=== PATIENT | female | born 1960 | race Caucasian/White ===

== ENCOUNTER 2019-05-22 12:58 | Outpatient (CLI) | payer MEDICAID, SELFPAY ==
[2019-05-22 13:36] LABS: Basophils % 0.5 %; Eosinophils # 0.2 10^3/uL (0.0-0.8); Eosinophils % 3.6 %; Lymphocytes # 1.2 10^3/uL (0.8-4.8); Lymphocytes % 18.6 %; Mean Corpuscular HGB Conc 32.3 g/dL (30.0-36.0); Mean Corpuscular Hemoglobin 29.2 pg (28.0-34.0); Mean Corpuscular Volume 90.6 fL (81-99); Mean Platelet Volume 9.6 fL (7.4-10.4); Monocytes # 0.6 10^3/uL (0.2-0.9); Monocytes % 9.4 %; Neutrophils # 4.4 10^3/uL (1.8-7.7); Neutrophils % 67.3 %; Nucleated Red Blood Cells % 0 %; Platelet Count 261 10^3/cmm (130-400); Red Blood Count 3.42 10^6/uL (4.1-5.3); Red Cell Distribution Width 12.4 % (12.1-15.1); White Blood Count 6.6 10^3/uL (4.0-10.0)
[2019-05-22 13:58] LABS: Alanine Aminotransferase 9 U/L (0-33); Albumin Level 3.9 g/dL (3.5-5.2); Alkaline Phosphatase 52 IU/L (35-105); Anion Gap 16.1 (5-19); Aspartate Amino Transferase 14 U/L (0-32); Blood Urea Nitrogen 14 mg/dL (6-20); Calcium 9.2 mg/Dl (8.6-10.0); Carbon Dioxide 23 mmol/L (22-29); Chloride 103 mmol/L (98-107); Ferritin 69 ng/mL (15-150); Globulin 2.2 g/dL (1.3-4.6); Glomerular Filtration Rate 85.9 mL/min (90-130); Glucose 95 mg/dL (74-109); Iron 95 ug/dL (37-145); Potassium 4.1 mmol/L (3.5-5.1); Sodium 138 mmol/L (136-145); Total Bilirubin 0.2 mg/dL (0.15-1.2); Total Iron Binding Capacity 279 mg/dL; Total Protein 6.1 g/dL (6.6-8.7); Unsaturated Iron Binding 184 ug/dL (112-347)
[2019-05-23 13:42] LABS: Vitamin B12 492 pg/mL (232-1245)
== END 2019-05-22 12:59 | disposition home or self-care (01) ==
LOC: ONCMED 13:01
PROVIDERS: Family Provider Family Medicine; Visit Provider Internal Medicine Medical Oncology
DX: D64.9 Anemia, unspecified (principal)
CPT/HCPCS: 36591; 80053; 82607; 82728; 83540; 83550; 85025

== ENCOUNTER 2019-06-27 12:57 | Outpatient (CLI) | payer MEDICAID, SELFPAY ==
[2019-06-27 14:08] LABS: Basophils % 0.3 %; Eosinophils # 0.2 10^3/uL (0.0-0.8); Eosinophils % 1.8 %; Hematocrit 34.2 % (37.0-47.0); Lymphocytes # 1.1 10^3/uL (0.8-4.8); Mean Corpuscular HGB Conc 32.2 g/dL (30.0-36.0); Mean Corpuscular Hemoglobin 29.9 pg (28.0-34.0); Mean Corpuscular Volume 92.9 fL (81-99); Mean Platelet Volume 9.3 fL (7.4-10.4); Monocytes # 0.8 10^3/uL (0.2-0.9); Monocytes % 8.7 %; Neutrophils # 6.6 10^3/uL (1.8-7.7); Neutrophils % 75.5 %; Nucleated Red Blood Cells % 0 %; Platelet Count 257 10^3/cmm (130-400); Red Blood Count 3.68 10^6/uL (4.1-5.3); Red Cell Distribution Width 12.9 % (12.1-15.1); White Blood Count 8.7 10^3/uL (4.0-10.0)
[2019-06-27 14:44] LABS: Alanine Aminotransferase 9 U/L (0-33); Albumin Level 4.1 g/dL (3.5-5.2); Alkaline Phosphatase 64 IU/L (35-105); Anion Gap 15.7 (5-19); Aspartate Amino Transferase 13 U/L (0-32); Blood Urea Nitrogen 17 mg/dL (6-20); Calcium 9.7 mg/dL (8.5-10.5); Carbon Dioxide 22 mmol/L (22-29); Chloride 103 mmol/L (98-107); Ferritin 71 ng/mL (15-150); Globulin 2.4 g/dL (1.3-4.6); Glomerular Filtration Rate 85.9 mL/min (90-130); Glucose 93 mg/dL (65-115); Iron 114 ug/dL (37-145); Percent Saturation 35.2 % (20-50); Potassium 3.7 mmol/L (3.5-5.1); Sodium 137 mmol/L (136-145); Total Bilirubin 0.3 mg/dL (0.15-1.2); Total Iron Binding Capacity 323 mcg/dl; Total Protein 6.5 g/dL (6.6-8.7); Unsaturated Iron Binding 209 ug/dL (112-347)
[2019-06-27 15:53] LABS: Vitamin B12 384 pg/mL (232-1245)
--- NOTE | 2019-06-28 07:43 | ONC FU_ITS ---
Dr. Medina Patient Follow-Up Note Patient: Preeti Odom Unit #: [id number]: 1960 Dicatated By: Lauri Medina M.D.Date of Visit:Jun 27, 2019 Onc Med Follow-up/Prog Note Chief Complaint: Anemia. History of Present Illness: This is a 59 year-old woman with a mild chronic anemia. She had chronic iron deficiency anemia for 13 years prior to presentation, requiring Port-A-Cath placement and frequent IV iron administration. She underwent a total abdominal hysterectomy for fibroid uterus and endometriosis in 1994, followed by bilateral oophorectomies in 1996. She had a history of perforated bleeding peptic ulcer disease, requiring extensive surgery with en-block resection, partial gastrectomy, small bowel resection, and colectomy in [address] In 2012 she had an acute on chronic anemia, for which she received a course of IV iron over about one year. She reported having endoscopy, colonoscopy, bone marrow biopsy performed at the [address] Those records were not available. Laboratory analysis in on 11/21/2014 showed normal CBC analysis, MCV 88, iron panel unremarkable. She had then relocated to [facility]. She was first seen by Dr. Fonseca on 05/16/2015. Iron deficiency was confirmed, hemoglobin 10.8 g/dL. Hemoccult positive. She was given parenteral iron replacement with a single infusion of Injectafer, completed on 06/12/2015. She was seen for a follow-up visit on 07/19/2016. She was still mildly anemic. Her further laboratory studies on 08/31/2016 showed hemoglobin just borderline low at 12.4 g. Her serum iron studies, though, did show low transferrin saturation at 12%, consistent with iron deficiency. She was having significant fatigue, and at that point I did opt to give her another infusion of Injectafer, which she completed on 09/03/2016. I had seen her for a followup visit in January 2017. At that time she was still mildly anemic, but her transferrin saturation and ferritin level were normal, and I opted to just continue observation/expectant management. Her other medical illnesses include GERD/peptic ulcer disease, fibromyalgia, degenerative arthritis, osteoporosis, and depression. She has chronic back pain, and she has chronic headaches. She had smoked in the past, but she quit smoking 17 years ago. INTERIM HISTORY: As of August 2017 her studies were again consistent with iron deficiency, transferrin saturation 17% and ferritin level 26 ng/mL. She was given a single infusion of Injectafer. Her repeat CBC in January 2019 showed hemoglobin adequate at 12.4 g with transferrin saturation 29% and ferritin level 54 ng/mL. At her followup visit in June 2018 her hemoglobin had declined just slightly, but her transferrin saturation and ferritin were consistent with iron deficiency, and she was given an additional infusion of Injectafer. Her repeat laboratory studies on 10/10/2018 again showed adequate hemoglobin at 12.0 g with slightly low transferrin saturation and normal ferritin. She was found to have low potassium at 2.9 mmol/L, and she then began on an oral potassium supplement. As of her follow-up been November 2018 her hemoglobin was stable at 11.9 g with transferrin saturation slightly low at 17.1% but with ferritin normal at 141 ng/mL. She is seen for a scheduled visit. She has been feeling good generally. She says she has had better energy since she starting water aerobics on a regular basis. She still has some fatigue. ECOG score is 1. She has good appetite. She has no fever, night sweats, or hot flashes. She has no shortness of breath, cough, or chest pain. She says she does get nauseated pretty easily. She has no other GI or complaints. She has chronic pain in her back and joints, but that is pretty well managed with medication. She has no focal neurologic symptoms. Medications: Amitriptyline HCl 1 (25 mg) Tablet Oral at bedtime, BuPROPion HCl 1 Tablet (of 150 mg) Oral b.i.d., CeleBREX 1 Capsule Oral b.i.d., Cyclobenzaprine HCl 1 (5 mg) Tablet Oral b.i.d. PRN, Excedrin Migraine Tablet Oral PRN, Glucosamine Chondr Complex Capsule Oral b.i.d., HYDROcodone Bitartrate ER 1 Tablet (of 20 mg) Capsule SR 12 HR Oral daily, Oxycodone-Acetaminophen 1 (5-325 mg) Tablet Oral q 4 hours PRN, PriLOSEC (20 ) Capsule Delayed Release Oral daily, Senna S 1 (8.6-50 mg) Tablet Oral b.i.d., Zofran 1 (8 mg) Tablet Oral t.i.d. PRN Allergies: No Known Allergies. Review of Systems: Constitutional - Her energy has gotten better. She still has some fatigue. Appetite is good and weight is stable. No fever, night sweats, or hot flashes. ECOG score is 1, ENMT - No sinus congestion/drainage. No mouth sores. No sore throat or difficulty swallowing, Hematologic/Lymphatic - No abnormal bruising or bleeding, Respiratory - No shortness of breath. No cough. No pleuritic pain or hemoptysis, Cardiovascular - No angina pain. No palpitations, Gastrointestinal - She gets nauseated pretty easily. She has no vomiting. No heartburn or acid reflux. No diarrhea or constipation. No blood in the stool or black stools, Genitourinary (F) - No dysuria or hematuria. No urinary frequency. No urgency or incontinence, Musculoskeletal - She has back pain and generalized joint pain. It is managed pretty well with medication, Integumentary - No skin complications, Neurologic - No headache or dizziness. No numbness/paresthesias or other focal neurologic symptoms, Psychiatric - Her anxiety/depression is adequately managed. No insomnia. Vital Signs: Performed on Jun 27, 2019 14:48 Height - 60.00 in Weight - 125.6 lbs (HIGH) BSA - 1.53 sq.m BMI - 24.53 Temperature - 98.1 F (LOW) Pulse - 83 /min Respiration - 18 /min BP - 123/63 mm(hg) O2 Sat - 97 % Pain - 3 Physical Examination: Constitutional - She looks good generally, Eyes - Sclerae nonicteric. Conjunctivae clear, ENMT - There are no lesions noted in the oral cavity, Hematologic/Lymphatic - No cervical, clavicular, or axillary adenopathy, Respiratory - Lungs are clear with good air movement bilaterally, Cardiovascular - Heart rhythm is regular. There is no murmur, gallop, or rub noted, Abdomen - Soft. Liver and spleen are not enlarged. There is no abdominal mass or ascites noted and there is no inguinal adenopathy, Extremities - No edema. Pedal pulses are palpable bilaterally, Neurologic - No focal neurologic deficits noted. Lab/Imaging: Test performed on Jun 27, 2019 13:55 Ferritin 71 ng/mL Iron 114 ug/dL Sodium 137 mmol/L Vitamin B12 384 pg/mL Potassium 3.7 mmol/L Chloride 103 mmol/L CO2 22 mmol/L UIBC 209 ug/dL Anion Gap 15.7 BUN 17 mg/dL Creatinine 0.7 mg/dL Cr Clearance (Est) 78.79 mL/min eGFR 85.9 mL/min Glucose 93 mg/dL Calcium 9.7 mg/dL Protein, Total 6.5 g/dL Albumin 4.1 g/dL Globulin 2.4 g/dL Bilirubin, Total 0.3 mg/dL ALT (SGPT) 9 U/L AST (SGOT) 13 U/L Alkaline Phosphatase 64 IU/L WBC 8.7 10 3/uL RBC 3.68 10 6/uL HGB 11.0 g/dL HCT 34.2 % MCV 92.9 fL MCH 29.9 pg MCHC 32.2 g/dL RDW 12.9 % Platelet Count 257 10 3/cmm MPV 9.3 fL Neutrophils 6.6 10 3/uL Lymphocytes 1.1 10 3/uL Monocytes 0.8 10 3/uL Eosinophils 0.2 10 3/uL Basophils 0.0 10 3/uL Neutrophil % 75.5 % Lymphocyte % 13.0 % Monocyte % 8.7 % Eosinophil % 1.8 % Basophils % 0.3 % Impression: 1. Patient with chronic anemia. She has had recurrent episodes of iron deficiency. This is likely due to combination of GI blood loss and inadequate oral iron absorption. She has responded adequately to parenteral iron replacement. 2. She has an extensive history of gastrointestinal disease, including GERD and history of perforated ulcer. Her prior surgeries include partial gastrectomy and partial small bowel resection with Billroth I anastomosis and partial colectomy in 2010. Her other medical illnesses include: 3. Fibromyalgia. 4. Degenerative arthritis. 5. Osteoporosis. 6. She has chronic back pain and chronic headache. 7. Anxiety/depression. She was given further parenteral iron replacement in August 2016 as her laboratory studies at that time were indicative of iron deficiency, though she was only borderline anemic. As of her followup visit in January 2017 she was still mildly anemic but with normal transferrin saturation and normal ferritin. In August 2017 she did require another single infusion of Injectafer. As of January 2018, her hemoglobin was adequate at 12.4 g with transferrin saturation 29% and ferritin 54 ng/mL. As of her follow-up visit in June 2018 her transferrin saturation and ferritin levels were again consistent with iron deficiency, and she did receive an additional infusion of Injectafer. Her follow-up laboratory studies on 10/10/2018 showed significant hypokalemia with her potassium level at 2.9 mmol/L. She subsequently felt better on oral potassium supplementation. She has since then continued to have a mild anemia, but without evidence of iron deficiency. Plan: She remains on observation/expectant management. She will be coming in for port flush monthly. I will recheck her lab studies in 3 months, and I will see her again in 6 months. Signed By: Lauri Medina M.D. <<Signature on File>>
== END 2019-06-27 12:58 | disposition home or self-care (01) ==
LOC: ONCMED 13:00
PROVIDERS: Family Provider Family Medicine; Visit Provider Internal Medicine Medical Oncology
DX: Z09 Encounter for follow-up examination after completed treatment for conditions other than malignant neoplasm (principal); D64.9 Anemia, unspecified; K21.9 Gastro-esophageal reflux disease without esophagitis; M79.7 Fibromyalgia; M81.0 Age-related osteoporosis without current pathological fracture; G89.29 Other chronic pain; F41.8 Other specified anxiety disorders; Z79.891 Long term (current) use of opiate analgesic; Z87.11 Personal history of peptic ulcer disease; Z87.891 Personal history of nicotine dependence
CPT/HCPCS: 36591; 80053; 82607; 82728; 83540; 83550; 85025; G0463

== ENCOUNTER 2019-07-19 11:00 | Outpatient (CLI) | payer MEDICAID, SELFPAY ==
[2019-07-19 11:33] LABS: Basophils % 0.3 %; Eosinophils # 0.2 10^3/uL (0.0-0.8); Eosinophils % 3.3 %; Hematocrit 35.2 % (37.0-47.0); Hemoglobin 11.2 g/dL (11.5-15.3); Lymphocytes # 0.9 10^3/uL (0.8-4.8); Lymphocytes % 13.4 %; Mean Corpuscular HGB Conc 31.8 g/dL (30.0-36.0); Mean Corpuscular Hemoglobin 29.9 pg (28.0-34.0); Mean Corpuscular Volume 94.1 fL (81-99); Mean Platelet Volume 9.6 fL (7.4-10.4); Monocytes # 0.4 10^3/uL (0.2-0.9); Monocytes % 6.6 %; Neutrophils % 75.9 %; Nucleated Red Blood Cells % 0 %; Platelet Count 296 10^3/cmm (130-400); Red Blood Count 3.74 10^6/uL (4.1-5.3); Red Cell Distribution Width 13.2 % (12.1-15.1); White Blood Count 6.6 10^3/uL (4.0-10.0)
[2019-07-19 11:43] LABS: Ferritin 48 ng/mL (15-150); Iron 88 ug/dL (37-145); Percent Saturation 25.9 % (20-50); Total Iron Binding Capacity 339 mcg/dl; Unsaturated Iron Binding 251 ug/dL (112-347)
== END 2019-07-19 11:01 | disposition home or self-care (01) ==
LOC: ONCMED 11:01
PROVIDERS: Family Provider Family Medicine; Visit Provider Nurse Practitioner
DX: D50.8 Other iron deficiency anemias (principal)
CPT/HCPCS: 36591; 82728; 83540; 83550; 85025; 99213

== ENCOUNTER 2019-09-05 10:14 | Outpatient (CLI) | payer MEDICAID, SELFPAY ==
[2019-09-05 11:21] LABS: Potassium 3.6 mmol/L (3.5-5.1)
[2019-09-05 13:39] LABS: Partial Thromboplastin Time 29.5 SECONDS (23.9-36.7)
== END 2019-09-05 10:15 | disposition home or self-care (01) ==
LOC: LAB 10:18
PROVIDERS: Visit Provider Family Medicine
DX: R03.0 Elevated blood-pressure reading, without diagnosis of hypertension (principal)
CPT/HCPCS: 84132; 85730

== ENCOUNTER → 2019-10-11 07:41 | Outpatient (BNVA) | payer MEDICAID, SELFPAY | PROVIDERS: Visit Provider Nurse Practitioner | DX: F33.0 Major depressive disorder, recurrent, mild (principal) | CPT/HCPCS: 99213 ==

== ENCOUNTER 2019-10-11 13:35 | Outpatient (CLI) | payer MEDICAID, SELFPAY ==
[2019-10-11 13:57] LABS: Basophils % 0.4 %; Eosinophils # 0.2 10^3/uL (0.0-0.8); Eosinophils % 3.4 %; Hematocrit 34.7 % (37.0-47.0); Hemoglobin 11.2 g/dL (11.5-15.3); Lymphocytes # 1.4 10^3/uL (0.8-4.8); Lymphocytes % 19.1 %; Mean Corpuscular HGB Conc 32.3 g/dL (30.0-36.0); Mean Corpuscular Hemoglobin 29.8 pg (28.0-34.0); Mean Corpuscular Volume 92.3 fL (81-99); Mean Platelet Volume 9.3 fL (7.4-10.4); Monocytes # 0.7 10^3/uL (0.2-0.9); Monocytes % 10.1 %; Neutrophils # 4.8 10^3/uL (1.8-7.7); Neutrophils % 66.7 %; Nucleated Red Blood Cells % 0 %; Platelet Count 277 10^3/cmm (130-400); Red Blood Count 3.76 10^6/uL (4.1-5.3); Red Cell Distribution Width 12.4 % (12.1-15.1); White Blood Count 7.2 10^3/uL (4.0-10.0)
[2019-10-11 14:11] LABS: Ferritin 48 ng/mL (15-150); Iron 84 ug/dL (37-145); Total Iron Binding Capacity 311 mcg/dl; Unsaturated Iron Binding 227 ug/dL (112-347)
== END 2019-10-11 13:36 | disposition home or self-care (01) ==
LOC: ONCMED 13:40
PROVIDERS: PCP Family Medicine; Visit Provider Internal Medicine Medical Oncology
DX: D64.9 Anemia, unspecified (principal)
CPT/HCPCS: 36591; 82728; 83540; 83550; 85025

== ENCOUNTER 2019-10-14 16:40 | Inpatient (IN) | payer MEDICAID, SELFPAY ==
[2019-10-14] VITALS (12 sets, daily range): BP systolic 105–149; BP diastolic 54–90; PULSE 82–114; RESP 16–20; TEMP 36.6–39.4; O2SAT 96–100; BMI 21.9
--- NOTE | 2019-10-14 | SCC_ITS ---
Procedure Done: Cystoscopy, left ureteral stent placement 39.0 seconds of fluoroscopic guidance, for a cumulative dose of 5.38 mGy, was provided to Dr. Lr by the radiology department. C-arm images of the abdomen were saved for the patient's permanent record. JOÃO
[2019-10-14 17:21] LABS: Basophils % 0.2 %; Eosinophils % 0.1 %; Hematocrit 34.9 % (37.0-47.0); Hemoglobin 11.4 g/dL (11.5-15.3); Lymphocytes # 0.4 10^3/uL (0.8-4.8); Lymphocytes % 1.9 %; Mean Corpuscular HGB Conc 32.7 g/dL (30.0-36.0); Mean Corpuscular Hemoglobin 29.8 pg (28.0-34.0); Mean Corpuscular Volume 91.1 fL (81-99); Mean Platelet Volume 9.3 fL (7.4-10.4); Monocytes # 1.3 10^3/uL (0.2-0.9); Monocytes % 6.4 %; Neutrophils # 18.5 10^3/uL (1.8-7.7); Neutrophils % 90.8 %; Nucleated Red Blood Cells % 0 %; Platelet Count 225 10^3/cmm (130-400); Red Blood Count 3.83 10^6/uL (4.1-5.3); Red Cell Distribution Width 12.8 % (12.1-15.1); White Blood Count 20.4 10^3/uL (4.0-10.0)
--- NOTE | 2019-10-14 17:21 | ED_ITS ---
Documented by User: Shashi Cade DO 10/14/19 17:26 HPI - Female Genitourinary History of Present Illness: HPI Narrative: Patient reports sudden onset of severe left flank pain with radiation to the abdomen and groin. Patient has had multiple kidney stones in the past and states that these are the symptoms she usually experiences. Patient also has a temperature of 103 but denies any other symptoms that could account for the fever. MD elicited complaint: flank pain Onset (ago): hour(s) Location of symptoms: flank Severity: similar to previous episodes Quality of pain: sharp, stabbing and aching Consistency: constant and progressively worsening Vaginal discharge: none Vaginal bleeding: none Urinary symptoms: Flank Pain Exacerbating factors: movement and palpation Relieving factors: none Associated symptoms: Reports nausea Treatment prior to arrival: none Review of Systems General: Reports: 10 or more systems reviewed and unremarkable except in HPI and below GI: Reports: nausea : Reports: flank pain PFSH ED PFSH: Medical History Disappearance and of family member Major depressive disorder, recurrent, mild Undifferentiated somatoform disorder Social History Smoking and tobacco status: former smoker Physical Exam Narrative: EXAM NARRATIVE: Patient reports sudden onset of severe left-sided flank pain with radiation to the groin and abdomen. She has had nausea without vomiting. Patient also has temperature 103. Patient states that with the exception of the fever these are the symptoms she gets when she is passing a kidney stone. Const: COMMON NORMALS: average body habitus, patient oriented x3, alert and well nourished GENERAL APPEARANCE: in distress HENMT: COMMON NORMALS: normocephalic, atraumatic, hearing grossly normal bilaterally, external ears normal, EAC's normal, TM's normal bilaterally, Normal external nose present, Normal nasal mucous membranes and turbinates present, moist oral mucous membranes, oropharynx normal, dentition normal and gingiva normal HEAD & SCALP: normocephalic and atraumatic NOSE: Normal external nose present and Normal nasal mucous membranes and turbinates present EXTERNAL EAR: Yes external ears normal EXTERNAL AUDITORY CANAL: EAC's normal TYMPANIC MEMBRANE: TM's normal bilaterally Eye: COMMON NORMALS: Equal, round and reactive pupils present, EOMs intact bilaterally, conjunctivae normal, no scleral icterus, no papilledema, normal visual sampson by confrontation and fundi normal bilaterally CONJUNCTIVA: Yes conjunctivae normal PUPIL: Yes Equal, round and reactive pupils present DIRECT OPHTHALMOSCOPY: Yes no papilledema and Yes fundi normal bilaterally Neck/C-Spine: COMMON NORMALS: full ROM, no lymphadenopathy, supple, no meningeal signs, no JVD, Thyroid normal and No carotid bruits THYROID: Thyroid normal Chest: COMMONS NORMALS: normal inspection of the chest and normal palpation of entire chest wall Resp: COMMON NORMALS: normal respiratory effort, No retractions, No use of accessory muscles, clear to auscultation bilaterally and percussion normal AUSCULTATION: clear to auscultation bilaterally PERCUSSION: percussion normal Cardio: COMMON NORMALS: no JVD, regular rate, regular rhythm, S1 normal heart sound present, S2 normal heart sound present, No gallops present (Cardio), No clicks present (Cardio), No murmurs present (Cardio), No rub (Cardio) and Peripheral pulses 2+ throughout RATE: regular rate RHYTHM: regular rhythm HEART SOUNDS: S1 normal heart sound present and S2 normal heart sound present PERIPHERAL PULSES: Peripheral pulses 2+ throughout GI: COMMON NORMALS: Normal to inspection, nondistended, normoactive bowel sounds present, Soft to palpation, non-tender, No hepatosplenomegaly present, no masses and no bruits PALPATION: Yes Soft to palpation and Yes No hepatosplenomegaly present : COMMON NORMALS: Yes normal external appearance Back/Pelvis: COMMON NORMALS: thoracic and lumbar spine normal to inspection, no thoracic nor lumbar tenderness, thoraco-lumbar ROM normal and straight leg raise negative bilaterally Extremity: COMMON NORMALS: normal to inspection, full ROM, capillary refill normal, no joint enlargement, no clubbing, cyanosis or edema, no calf tenderness and no pedal edema Neuro: COMMON NORMALS: patient oriented x3 SENSORIUM/ORIENTATION: Yes alert MENINGEAL SIGNS: Yes no meningeal signs Skin: COMMON NORMALS: no rashes or lesions noted, no wounds, no jaundice and no mottling GENERAL SKIN EXAM: no rashes or lesions noted Course Vital Signs: Vital signs: Vital Signs Temperature 103 F H 10/14/19 16:49 Pulse Rate 114 H 10/14/19 16:49 Respiratory Rate 18 10/14/19 17:55 Blood Pressure 149/76 10/14/19 16:49 Pulse Oximetry 96 10/14/19 16:49 MDM - Female Lab Data: Labs: Lab Results 10/14/19 10/14/19 10/14/19 Range/Units 17:15 17:15 17:15 WBC 20.4 H (4.0-10.0) 10^3/ uL RBC 3.83 L (4.1-5.3) 10^6/u L Hgb 11.4 L (11.5-15.3) g/dL Hct 34.9 L (37.0-47.0) % MCV 91.1 (81-99) fL MCH 29.8 (28.0-34.0) pg MCHC 32.7 (30.0-36.0) g/dL RDW 12.8 (12.1-15.1) % Plt Count 225 (130-400) 10^3/c mm MPV 9.3 (7.4-10.4) fL Neut % (Auto) 90.8 % Lymph % (Auto) 1.9 % Dickinson % (Auto) 6.4 % Eos % (Auto) 0.1 % Baso % (Auto) 0.2 % Neut # (Auto) 18.5 H (1.8-7.7) 10^3/u L Lymph # (Auto) 0.4 L (0.8-4.8) 10^3/u L Dickinson # (Auto) 1.3 H (0.2-0.9) 10^3/u L Eos # (Auto) 0.0 (0.0-0.8) 10^3/u L Baso # (Auto) 0.0 (0.0-0.1) 10^3/u L Nucleated RBC % (a uto) 0 % Nucleated RBCs # 0.0 /100WBC Sodium 134 L (136-145) mmol/L Potassium 3.2 L (3.5-5.1) mmol/L Chloride 95 L (98-107) mmol/L Carbon Dioxide 21 L (22-29) mmol/L Anion Gap 21.2 H (5-19) BUN 15 (6-20) mg/dL Creatinine 0.8 (0.5-0.9) mg/dL GFR Calculation 73.7 L (90-130) mL/min Glucose 126 H (65-115) mg/dL Calculated Osmolal ity 276 L (285-295) mOsm/k g Lactate 0.9 (0.5-2.2) mmol/L Calcium 10.0 (8.5-10.5) mg/dL Total Bilirubin 0.4 (0.15-1.2) mg/dL AST 26 (0-32) U/L ALT 21 (0-33) U/L Alkaline Phosphata se 62 (35-105) IU/L Total Protein 6.6 (6.6-8.7) g/dL Albumin 4.4 (3.5-5.2) g/dL Globulin 2.2 (1.3-4.6) g/dL Urine Color (Yellow) Urine Appearance (CLEAR) Urine pH (5-7) Ur Specific Gravit y (1.005-1.030) Urine Protein (Negative) Urine Glucose (UA) (Normal) Urine Ketones (Negative) Urine Blood (Negative) Urine Nitrate (Negative) Urine Bilirubin (NEGATIVE) Urine Urobilinogen (Negative) mg/dL Ur Leukocyte Diane ase (Negative) Urine RBC (0-2) /hpf Urine WBC (0-5) /hpf Ur Squamous Epith Cells (0-5) Urine Bacteria (NONE) Urine Mucus 10/14/19 Range/Units 18:00 WBC (4.0-10.0) 10^3/ uL RBC (4.1-5.3) 10^6/u L Hgb (11.5-15.3) g/dL Hct (37.0-47.0) % MCV (81-99) fL MCH (28.0-34.0) pg MCHC (30.0-36.0) g/dL RDW (12.1-15.1) % Plt Count (130-400) 10^3/c mm MPV (7.4-10.4) fL Neut % (Auto) % Lymph % (Auto) % Dickinson % (Auto) % Eos % (Auto) % Baso % (Auto) % Neut # (Auto) (1.8-7.7) 10^3/u L Lymph # (Auto) (0.8-4.8) 10^3/u L Dickinson # (Auto) (0.2-0.9) 10^3/u L Eos # (Auto) (0.0-0.8) 10^3/u L Baso # (Auto) (0.0-0.1) 10^3/u L Nucleated RBC % (a uto) % Nucleated RBCs # /100WBC Sodium (136-145) mmol/L Potassium (3.5-5.1) mmol/L Chloride (98-107) mmol/L Carbon Dioxide (22-29) mmol/L Anion Gap (5-19) BUN (6-20) mg/dL Creatinine (0.5-0.9) mg/dL GFR Calculation (90-130) mL/min Glucose (65-115) mg/dL Calculated Osmolal ity (285-295) mOsm/k g Lactate (0.5-2.2) mmol/L Calcium (8.5-10.5) mg/dL Total Bilirubin (0.15-1.2) mg/dL AST (0-32) U/L ALT (0-33) U/L Alkaline Phosphata se (35-105) IU/L Total Protein (6.6-8.7) g/dL Albumin (3.5-5.2) g/dL Globulin (1.3-4.6) g/dL Urine Color Yellow (Yellow) Urine Appearance Cloudy (CLEAR) Urine pH 5 (5-7) Ur Specific Gravit y 1.010 (1.005-1.030) Urine Protein 1+ H (Negative) Urine Glucose (UA) Norm (Normal) Urine Ketones 1+ H (Negative) Urine Blood 3+ H (Negative) Urine Nitrate Positive H (Negative) Urine Bilirubin Neg (NEGATIVE) Urine Urobilinogen Norm (Negative) mg/dL Ur Leukocyte Diane ase 1+ H (Negative) Urine RBC 15-25 H (0-2) /hpf Urine WBC 40-55 H (0-5) /hpf Ur Squamous Epith Cells 0-4 H (0-5) Urine Bacteria 4+ H (NONE) Urine Mucus 1+ Discharge Plan Discharge Patient Disposition: Admitted As Inpatient Clinical Impression: Urinary tract infection, Ureterolithiasis Condition: Stable Referrals: Thanh Meyer MD [Primary Care Provider] - Coding Level of Care Code ED Associate Software Development Engineer for Chg Fwd Exam Comprehensive Documented by User: Kenney Olea DO 10/14/19 19:45 PFSH ED PFSH: Medical History Disappearance and of family member Major depressive disorder, recurrent, mild Undifferentiated somatoform disorder Social History Smoking and tobacco status: former smoker Course Vital Signs: Vital signs: Vital Signs Temperature 103 F H 10/14/19 16:49 Pulse Rate 114 H 10/14/19 16:49 Respiratory Rate 18 10/14/19 17:55 Blood Pressure 149/76 10/14/19 16:49 Pulse Oximetry 96 10/14/19 16:49 MDM - Female MDM Narrative: Medical decision making narrative: 59-year-old female checked out to me by Dr. Smallwood at shift change. This lady has significant left flank pain. She has a history of kidney stones. She also though has a fever of 103 and a white blood cell count of 20. She has a nitrite positive urinary tract infection. She has 2 stones in the mid ureter on the left. Largest 5 mm. No abscess by CT. Spoke with urology. He is going to come in to see her. She has had a liter of fluid and 3.375 of Zosyn. She is also getting potassium chloride IV for a potassium of 3.2. Lab Data: Labs: Lab Results 10/14/19 10/14/19 10/14/19 Range/Units 17:15 17:15 17:15 WBC 20.4 H (4.0-10.0) 10^3/ uL RBC 3.83 L (4.1-5.3) 10^6/u L Hgb 11.4 L (11.5-15.3) g/dL Hct 34.9 L (37.0-47.0) % MCV 91.1 (81-99) fL MCH 29.8 (28.0-34.0) pg MCHC 32.7 (30.0-36.0) g/dL RDW 12.8 (12.1-15.1) % Plt Count 225 (130-400) 10^3/c mm MPV 9.3 (7.4-10.4) fL Neut % (Auto) 90.8 % Lymph % (Auto) 1.9 % Dickinson % (Auto) 6.4 % Eos % (Auto) 0.1 % Baso % (Auto) 0.2 % Neut # (Auto) 18.5 H (1.8-7.7) 10^3/u L Lymph # (Auto) 0.4 L (0.8-4.8) 10^3/u L Dickinson # (Auto) 1.3 H (0.2-0.9) 10^3/u L Eos # (Auto) 0.0 (0.0-0.8) 10^3/u L Baso # (Auto) 0.0 (0.0-0.1) 10^3/u L Nucleated RBC % (a uto) 0 % Nucleated RBCs # 0.0 /100WBC Sodium 134 L (136-145) mmol/L Potassium 3.2 L (3.5-5.1) mmol/L Chloride 95 L (98-107) mmol/L Carbon Dioxide 21 L (22-29) mmol/L Anion Gap 21.2 H (5-19) BUN 15 (6-20) mg/dL Creatinine 0.8 (0.5-0.9) mg/dL GFR Calculation 73.7 L (90-130) mL/min Glucose 126 H (65-115) mg/dL Calculated Osmolal ity 276 L (285-295) mOsm/k g Lactate 0.9 (0.5-2.2) mmol/L Calcium 10.0 (8.5-10.5) mg/dL Total Bilirubin 0.4 (0.15-1.2) mg/dL AST 26 (0-32) U/L ALT 21 (0-33) U/L Alkaline Phosphata se 62 (35-105) IU/L Total Protein 6.6 (6.6-8.7) g/dL Albumin 4.4 (3.5-5.2) g/dL Globulin 2.2 (1.3-4.6) g/dL Urine Color (Yellow) Urine Appearance (CLEAR) Urine pH (5-7) Ur Specific Gravit y (1.005-1.030) Urine Protein (Negative) Urine Glucose (UA) (Normal) Urine Ketones (Negative) Urine Blood (Negative) Urine Nitrate (Negative) Urine Bilirubin (NEGATIVE) Urine Urobilinogen (Negative) mg/dL Ur Leukocyte Diane ase (Negative) Urine RBC (0-2) /hpf Urine WBC (0-5) /hpf Ur Squamous Epith Cells (0-5) Urine Bacteria (NONE) Urine Mucus 10/14/19 Range/Units 18:00 WBC (4.0-10.0) 10^3/ uL RBC (4.1-5.3) 10^6/u L Hgb (11.5-15.3) g/dL Hct (37.0-47.0) % MCV (81-99) fL MCH (28.0-34.0) pg MCHC (30.0-36.0) g/dL RDW (12.1-15.1) % Plt Count (130-400) 10^3/c mm MPV (7.4-10.4) fL Neut % (Auto) % Lymph % (Auto) % Dickinson % (Auto) % Eos % (Auto) % Baso % (Auto) % Neut # (Auto) (1.8-7.7) 10^3/u L Lymph # (Auto) (0.8-4.8) 10^3/u L Dickinson # (Auto) (0.2-0.9) 10^3/u L Eos # (Auto) (0.0-0.8) 10^3/u L Baso # (Auto) (0.0-0.1) 10^3/u L Nucleated RBC % (a uto) % Nucleated RBCs # /100WBC Sodium (136-145) mmol/L Potassium (3.5-5.1) mmol/L Chloride (98-107) mmol/L Carbon Dioxide (22-29) mmol/L Anion Gap (5-19) BUN (6-20) mg/dL Creatinine (0.5-0.9) mg/dL GFR Calculation (90-130) mL/min Glucose (65-115) mg/dL Calculated Osmolal ity (285-295) mOsm/k g Lactate (0.5-2.2) mmol/L Calcium (8.5-10.5) mg/dL Total Bilirubin (0.15-1.2) mg/dL AST (0-32) U/L ALT (0-33) U/L Alkaline Phosphata se (35-105) IU/L Total Protein (6.6-8.7) g/dL Albumin (3.5-5.2) g/dL Globulin (1.3-4.6) g/dL Urine Color Yellow (Yellow) Urine Appearance Cloudy (CLEAR) Urine pH 5 (5-7) Ur Specific Gravit y 1.010 (1.005-1.030) Urine Protein 1+ H (Negative) Urine Glucose (UA) Norm (Normal) Urine Ketones 1+ H (Negative) Urine Blood 3+ H (Negative) Urine Nitrate Positive H (Negative) Urine Bilirubin Neg (NEGATIVE) Urine Urobilinogen Norm (Negative) mg/dL Ur Leukocyte Diane ase 1+ H (Negative) Urine RBC 15-25 H (0-2) /hpf Urine WBC 40-55 H (0-5) /hpf Ur Squamous Epith Cells 0-4 H (0-5) Urine Bacteria 4+ H (NONE) Urine Mucus 1+ Discharge Plan Discharge Patient Disposition: Admitted As Inpatient Clinical Impression: Urinary tract infection, Ureterolithiasis Condition: Stable Referrals: Thanh Meyer MD [Primary Care Provider] - Coding Level of Care Code ED Associate Software Development Engineer for Chg Fwd Exam Comprehensive Documented by User: Shena Barcenas 10/14/19 20:10 [facility] ED PFSH: Medical History Disappearance and of family member Major depressive disorder, recurrent, mild Undifferentiated somatoform disorder Social History Smoking and tobacco status: former smoker Course Vital Signs: Vital signs: Vital Signs Temperature 103 F H 10/14/19 16:49 Pulse Rate 114 H 10/14/19 16:49 Respiratory Rate 18 10/14/19 17:55 Blood Pressure 149/76 10/14/19 16:49 Pulse Oximetry 96 10/14/19 16:49 MDM - Female Lab Data: Labs: Lab Results 10/14/19 10/14/19 10/14/19 Range/Units 17:15 17:15 17:15 WBC 20.4 H (4.0-10.0) 10^3/ uL RBC 3.83 L (4.1-5.3) 10^6/u L Hgb 11.4 L (11.5-15.3) g/dL Hct 34.9 L (37.0-47.0) % MCV 91.1 (81-99) fL MCH 29.8 (28.0-34.0) pg MCHC 32.7 (30.0-36.0) g/dL RDW 12.8 (12.1-15.1) % Plt Count 225 (130-400) 10^3/c mm MPV 9.3 (7.4-10.4) fL Neut % (Auto) 90.8 % Lymph % (Auto) 1.9 % Dickinson % (Auto) 6.4 % Eos % (Auto) 0.1 % Baso % (Auto) 0.2 % Neut # (Auto) 18.5 H (1.8-7.7) 10^3/u L Lymph # (Auto) 0.4 L (0.8-4.8) 10^3/u L Dickinson # (Auto) 1.3 H (0.2-0.9) 10^3/u L Eos # (Auto) 0.0 (0.0-0.8) 10^3/u L Baso # (Auto) 0.0 (0.0-0.1) 10^3/u L Nucleated RBC % (a uto) 0 % Nucleated RBCs # 0.0 /100WBC Sodium 134 L (136-145) mmol/L Potassium 3.2 L (3.5-5.1) mmol/L Chloride 95 L (98-107) mmol/L Carbon Dioxide 21 L (22-29) mmol/L Anion Gap 21.2 H (5-19) BUN 15 (6-20) mg/dL Creatinine 0.8 (0.5-0.9) mg/dL GFR Calculation 73.7 L (90-130) mL/min Glucose 126 H (65-115) mg/dL Calculated Osmolal ity 276 L (285-295) mOsm/k g Lactate 0.9 (0.5-2.2) mmol/L Calcium 10.0 (8.5-10.5) mg/dL Total Bilirubin 0.4 (0.15-1.2) mg/dL AST 26 (0-32) U/L ALT 21 (0-33) U/L Alkaline Phosphata se 62 (35-105) IU/L Total Protein 6.6 (6.6-8.7) g/dL Albumin 4.4 (3.5-5.2) g/dL Globulin 2.2 (1.3-4.6) g/dL Urine Color (Yellow) Urine Appearance (CLEAR) Urine pH (5-7) Ur Specific Gravit y (1.005-1.030) Urine Protein (Negative) Urine Glucose (UA) (Normal) Urine Ketones (Negative) Urine Blood (Negative) Urine Nitrate (Negative) Urine Bilirubin (NEGATIVE) Urine Urobilinogen (Negative) mg/dL Ur Leukocyte Diane ase (Negative) Urine RBC (0-2) /hpf Urine WBC (0-5) /hpf Ur Squamous Epith Cells (0-5) Urine Bacteria (NONE) Urine Mucus 10/14/19 Range/Units 18:00 WBC (4.0-10.0) 10^3/ uL RBC (4.1-5.3) 10^6/u L Hgb (11.5-15.3) g/dL Hct (37.0-47.0) % MCV (81-99) fL MCH (28.0-34.0) pg MCHC (30.0-36.0) g/dL RDW (12.1-15.1) % Plt Count (130-400) 10^3/c mm MPV (7.4-10.4) fL Neut % (Auto) % Lymph % (Auto) % Dickinson % (Auto) % Eos % (Auto) % Baso % (Auto) % Neut # (Auto) (1.8-7.7) 10^3/u L Lymph # (Auto) (0.8-4.8) 10^3/u L Dickinson # (Auto) (0.2-0.9) 10^3/u L Eos # (Auto) (0.0-0.8) 10^3/u L Baso # (Auto) (0.0-0.1) 10^3/u L Nucleated RBC % (a uto) % Nucleated RBCs # /100WBC Sodium (136-145) mmol/L Potassium (3.5-5.1) mmol/L Chloride (98-107) mmol/L Carbon Dioxide (22-29) mmol/L Anion Gap (5-19) BUN (6-20) mg/dL Creatinine (0.5-0.9) mg/dL GFR Calculation (90-130) mL/min Glucose (65-115) mg/dL Calculated Osmolal ity (285-295) mOsm/k g Lactate (0.5-2.2) mmol/L Calcium (8.5-10.5) mg/dL Total Bilirubin (0.15-1.2) mg/dL AST (0-32) U/L ALT (0-33) U/L Alkaline Phosphata se (35-105) IU/L Total Protein (6.6-8.7) g/dL Albumin (3.5-5.2) g/dL Globulin (1.3-4.6) g/dL Urine Color Yellow (Yellow) Urine Appearance Cloudy (CLEAR) Urine pH 5 (5-7) Ur Specific Gravit y 1.010 (1.005-1.030) Urine Protein 1+ H (Negative) Urine Glucose (UA) Norm (Normal) Urine Ketones 1+ H (Negative) Urine Blood 3+ H (Negative) Urine Nitrate Positive H (Negative) Urine Bilirubin Neg (NEGATIVE) Urine Urobilinogen Norm (Negative) mg/dL Ur Leukocyte Diane ase 1+ H (Negative) Urine RBC 15-25 H (0-2) /hpf Urine WBC 40-55 H (0-5) /hpf Ur Squamous Epith Cells 0-4 H (0-5) Urine Bacteria 4+ H (NONE) Urine Mucus 1+ Discharge Plan Discharge Patient Disposition: Admitted As Inpatient Clinical Impression: Urinary tract infection, Ureterolithiasis Condition: Stable Referrals: Thanh Meyer MD [Primary Care Provider] - Coding Level of Care Code ED Associate Software Development Engineer for Chg Fwd Exam Comprehensive
[2019-10-14 17:35] LABS: Alanine Aminotransferase 21 U/L (0-33); Albumin Level 4.4 g/dL (3.5-5.2); Alkaline Phosphatase 62 IU/L (35-105); Anion Gap 21.2 (5-19); Aspartate Amino Transferase 26 U/L (0-32); Blood Urea Nitrogen 15 mg/dL (6-20); Carbon Dioxide 21 mmol/L (22-29); Chloride 95 mmol/L (98-107); Globulin 2.2 g/dL (1.3-4.6); Glomerular Filtration Rate 73.7 mL/min (90-130); Glucose 126 mg/dL (65-115); Lactate (Lactic Acid level) 0.9 mmol/L (0.5-2.2); Osmolality Calculated 276 mOsm/kg (285-295); Potassium 3.2 mmol/L (3.5-5.1); Sodium 134 mmol/L (136-145); Total Bilirubin 0.4 mg/dL (0.15-1.2); Total Protein 6.6 g/dL (6.6-8.7)
[2019-10-14] MEDS: ondansetron 2 mg/ML SDV 2 mL 4 MG IVP ×2 (17:51→19:28)
[2019-10-14] MEDS: ketorolac 30 mg/mL INJ IVP (17:53)
--- NOTE | 2019-10-14 17:54 | CTR_ITS ---
PROCEDURE INFORMATION: Exam: CT Abdomen And Pelvis Without Contrast Exam date and time: 10/14/2019 6:11 PM Age: 59 years old Clinical indication: Abdominal pain; Left; Prior surgery; Surgery date: 6+ months; Surgery type: Colon, gb, hyst; Patient HX: L flank pain w n/v - HX of stones; Additional info: Nephrolithiasis TECHNIQUE: Imaging protocol: Computed tomography of the abdomen and pelvis without contrast. Radiation optimization: All CT scans at this facility use at least one of these dose optimization techniques: automated exposure control; mA and/or kV adjustment per patient size (includes targeted exams where dose is matched to clinical indication); or iterative reconstruction. COMPARISON: No relevant prior studies available. RADIATION DOSE METRICS: Total DLP: 219.31 mGy-cm FINDINGS: Liver: Normal. No mass. Gallbladder and bile ducts: The gallbladder has been removed. Pancreas: There is fatty atrophy of the pancreas. Spleen: Normal. No splenomegaly. Adrenals: Normal. No mass. Kidneys and ureters: There are 2 calculi in the mid left ureter the larger of which measures 5 mm by 3 mm in the craniocaudad/transverse dimensions. Moderate hydronephrosis/hydroureter and associated inflammatory stranding. Stomach and bowel: Unremarkable. No obstruction. No mucosal thickening. Appendix: No evidence of appendicitis. Intraperitoneal space: Unremarkable. No free air. No significant fluid collection. Vasculature: Unremarkable. No abdominal aortic aneurysm. Lymph nodes: Unremarkable. No enlarged lymph nodes. Bladder: Unremarkable as visualized. Reproductive: The uterus is not visualized, consistent with hysterectomy. Bones/joints: Unremarkable. No acute fracture. Soft tissues: Unremarkable. CT/CT kidney stone [id number] IMPRESSION: There are 2 calculi in the mid left ureter the larger of which measures 5 mm with resultant obstructive changes as described above. Radiation Dose CTDIVOL = (mGy): DLP = 219.31 (mGy-cm)
[2019-10-14] MEDS: morphine 4 mg/mL SDV 1 mL IVP ×2 (17:55→19:28)
[2019-10-14] MEDS: piperacillin-tazobactam 4.5 GM in sodium chloride 0.9% (plus) 50 ML IV (17:56)
[2019-10-14] MEDS: sodium chloride 0.9% 1,000 ML 999 ML IV (18:01)
[2019-10-14 18:50] LABS: Add Urine Microscopic? YES; Bilirubin Urine Neg (NEGATIVE); Blood Urine 3+ (Negative); Glucose Urine UA Norm (Normal); Ketones Urine 1+ (Negative); Leukocyte Esterase Urine 1+ (Negative); Nitrate Urine Positive (Negative); Protein Urine 1+ (Negative); Urine Appearance Cloudy (CLEAR); Urine Color Yellow (Yellow); Urobilinogen Urine Norm (Negative); pH Urine 5 (5-7)
[2019-10-14 19:02] LABS: Add Urine Culture? Yes; Bacteria Urine 4+; Mucus Urine 1+; RBC Urine 15-25 /hpf (0-2); Squamous Epithelial Cell Urine 0-4 (0-5); WBC Urine 40-55 /hpf (0-5)
--- NOTE | 2019-10-14 20:11 | PC.NURSE ---
Surgeon here to see patient.
--- NOTE | 2019-10-14 20:12 | PM.HP ---
Providers/Chief Complaint Primary Care Provider: Thanh Meyer MD Chief Complaint: kidney stone History of Present Illness Preeti Odom is a 59 year old female who carries history of iron deficiency anemia requiring multiple iron transfusions has a port A cath, currently under evaluation for nerve stimulator for her chronic back pain, attempts behavioral health clinic for her anxiety came in with chief complaint of left-sided flank pain. Patient is stating that she was in her usual state of health until yesterday when she started experiencing left-sided back pain which was radiating towards her flank, she knew this was because of kidney stone because of her previous experiences of recurrent stones, she waited until today to come to the hospital, overnight she has had multiple episodes of emesis, she has chills, nausea, vomiting, fever of 103 at home. She has not eaten since yesterday, she is denying dysuria, urinary frequency. Diagnostics in the ER revealed sepsis secondary to left-sided nephrolithias with hydronephrosis, Dr. Lr is planning to take her to the OR from the ER She has been given Zosyn in the ER At the time of my evaluation she was not in any pain, she had normal vitals Review of Systems Const: Reports: fever(s), chills, body aches and fatigue Eyes: Denies: change in vision ENMT: Denies: throat pain Card: Denies: chest pain, edema or swelling of feet/ankles Resp: Denies: dyspnea GI: Reports: abdominal pain, nausea and constipation; Denies: diarrhea : Reports: flank pain and urinary urgency; Denies: difficulty voiding Musc: Denies: neck pain Skin/Breast: Denies: rash Neuro: Denies: headache(s) Psych: Reports: anxiety and depression Endo: Denies: polyuria Vadim/Lymph: Denies: easy bruising All/Imm: Denies: urticaria Medications/Allergies Home Medications Medication Instructions Recorded Confirmed Last Taken Type celecoxib 200 mg capsule 400 mg PO DAILY cap 07/19/19 07/19/19 Unknown History diphenhydramine HCl 25 mg capsule 25 mg PO TID PRN 07/19/19 07/19/19 Unknown History duloxetine 60 mg capsule,delayed 60 mg PO DAILY 07/19/19 07/19/19 Unknown History release montelukast 10 mg tablet 10 mg PO DAILY 07/19/19 07/19/19 Unknown History omeprazole 40 mg capsule,delayed 40 mg PO DAILY 07/19/19 07/19/19 Unknown History release oxycodone 5 mg tablet 5 mg PO Q6H PRN 07/19/19 07/19/19 Unknown History amitriptyline 50 mg tablet 50 mg PO .HS #30 tab 10/11/19 10/11/19 Unknown Rx bupropion HCl 200 mg tablet,12 hr 200 mg PO BID #60 tab 10/11/19 10/11/19 Unknown Rx sustained-release Allergies Allergy/AdvReac Type Severity Reaction Status Date / Time No Known Allergies Allergy Verified 10/10/19 14:25 PFSH Acute PFSH: Medical History Chronic back pain Depression Disappearance and of family member Fibromyalgia Iron deficiency anemia Major depressive disorder, recurrent, mild Mild anemia Osteoporosis Peptic ulcer disease Port-A-Cath in place Undifferentiated somatoform disorder Surgical History H/O bilateral oophorectomy H/O colonoscopy H/O: hysterectomy For fibroid and endometriosis History of bone marrow biopsy History of partial gastrectomy Secondary to peptic ulcer disease, perforated ulcer Hx of endoscopy Family History Other Hypertension Psychiatric illness Social History Smoking and tobacco status: former smoker Alcohol intake: never Substance/Drug Use: never Housing: House Vitals/I&O/Wt Last Vital Signs Temp 103 F H 10/14/19 16:49 Pulse 114 H 10/14/19 16:49 Resp 18 10/14/19 17:55 BP 149/76 10/14/19 16:49 Pulse Ox 96 10/14/19 16:49 10/14/19 10/14/19 10/14/19 06:59 14:59 22:59 Intake Total 374.667 / 374.667 Balance 374.667 / 374.667 Weight last 48 hrs Weight 50.802 kg Physical Exam Narrative: EXAM NARRATIVE: Examination Head to toe: Patient was sitting in her bed without any active discomfort Very cooperative and pleasant S1, S2 sinus tachycardia, no murmur appreciated Abdomen soft nontender nondistended, left-sided CVA tenderness positive Neurologically nonfocal exam Oriented x3 GCS 15 EOMI, PERRLA Skin does not show any sign ischemia getting ulcer Appears dehydrated Appropriate mood and affect Lungs are clear to auscultation Her right Port-A-Cath without any signs of infection around the access Data : 10/14/19 17:15 10/14/19 17:15 Micro: Microbiology 10/14/19 17:52 Blood Culture - Preliminary Blood SPECIMEN COLLECTED 10/14/19 17:15 Blood Culture - Preliminary Blood SPECIMEN COLLECTED A&P Assessment and plan (1) Ureterolithiasis: Status: Acute (2) Major depressive disorder, recurrent, mild: Status: Acute (3) Urinary tract infection: Status: Acute Qualifiers: Hematuria presence: with hematuria Urinary tract infection type: acute cystitis Qualified Code(s): N30.01 - Acute cystitis with hematuria (4) Pyelonephritis: Status: Acute Additional A&P Information Sepsis due to pyelonephritis Sepsis criteria met with fever, tachycardia, leukocytosis, she has normal lactic acid Fat stranding around left kidney Obstructive uropathy Patient will go to the OR for stent placement, Dr. Lr has seen her already Keep her on ceftriaxone IV daily Urine culture obtained Blood culture obtained Recurrent urolithiasis She might benefit from dietary modification She will follow-up with Dr. Lr Major depressive disorder Currently attending [facility], she is on 3-4 antidepressants Would continue after the procedure Port-A-Cath placement for iron transfusion for her iron deficiency anemia As per the patient at [facility] bone marrow biopsy was normal no malignancy was identified She has follow-up with Dr. Medina as well Hemoglobin stable N.p.o., resume diet after the procedure DVT prophylaxis: SCDs for now and after 24 hours start Lovenox Full code Attestations Medical Necessity Statement*: Anticipating stay in the hospital cross more than 2 midnights Currently need fluids and antibiotics for sepsis due to urolithiasis with obstruction, currently she is in OR getting stent placed by Dr. Lr Time Spent in Patient Care: (>than 50% of time spent in counselling and/or direct pt care on unit). 45 Coding Level of Care Code Acute Patient Liaison for [facility] Fwd Diagnoses Ureterolithiasis N20.1 Major depressive disorder, recurrent, mild F33.0 Urinary tract infection N30.01 Hematuria presence: with hematuria Urinary tract infection type: acute cystitis Pyelonephritis N12
--- NOTE | 2019-10-14 20:18 | P.CONIM_ITS ---
Providers/Reason For Consult Consulting Physican/Specialty*: Lr/urology Reason for Consult*: Left obstructive pyelonephritis Requesting Physcian: Dr. Olea Hospitalist service Primary Care Provider: Thanh Meyer MD History of Present Illness History of Present Illness Preeti Odom is a 59 year old female who I evaluated for the first time today at the request of Dr. Olea in the emergency department for left obstructive pyelonephritis. Presented today with complaints of left flank pain rating down to the abdomen and groin, fever of 103, malaise and weakness and feeling just terrible Multiple stones per history. In 2018 she was diagnosed with a stone in the left proximal ureter that she says that she passed but on careful questioning she never saw the stone come out or felt it. She just started feeling better and assumed that she had passed it. CT scan reviewed. Large stone left mid ureter with severe hydronephrosis. Smaller stone in the left kidney. White count was 20,000+. Urinalysis infected. Hemodynamically she was stable but risk of sepsis related to UTI/obstructive pyelonephritis was felt to be high and for that reason it was recommended that she go to the operating room emergently for cystoscopy and stent placement. Reviewed that if the wire could not be easily passed We might consider endoscopy of the ureter to try and pass a wire and if that failed then consider percutaneous nephrostomy tube by interventional radiologist in [place]. Reviewed the emergency status of the situation and the potential for great harm if not drained. She is received antibiotics. Other issues include history of profound anemia followed by Dr. Medina. She has a chronic port for transfusions as indicated. She is not aware of the underlying etiology. Other issues include fibromyalgia, degenerative arthritis, osteoporosis, chronic back pain and chronic headaches for which she follows in a pain clinic in [place], anxiety and depression. Review of Systems Const: Reports: fever(s), chills, body aches, fatigue and malaise Eyes: Denies: change in vision or blurry vision ENMT: Denies: throat pain or odynophagia Card: Denies: chest pain, palpitations or syncope Resp: Denies: dyspnea, productive cough or non-productive cough GI: Reports: abdominal pain, nausea and vomiting; Denies: dysphagia : Reports: flank pain; Denies: dysuria Musc: Denies: neck pain or extremity swelling Skin/Breast: Denies: rash, pruritus or erythema Neuro: Reports: headache(s); Denies: behavioral changes, Slurred speech present or seizure-like activity Psych: Reports: anxiety; Denies: panic attacks Endo: Denies: polyuria or polydipsia Vadim/Lymph: Reports: easy bruising; Denies: easy bleeding, petechiae or enlarged lymph nodes Meds/Allergies Home Medications and Allergies Home Medications Medication Instructions Recorded Confirmed Last Taken Type celecoxib 200 mg capsule 400 mg PO DAILY cap 07/19/19 07/19/19 Unknown History diphenhydramine HCl 25 mg capsule 25 mg PO TID PRN 07/19/19 07/19/19 Unknown History duloxetine 60 mg capsule,delayed 60 mg PO DAILY 07/19/19 07/19/19 Unknown History release montelukast 10 mg tablet 10 mg PO DAILY 07/19/19 07/19/19 Unknown History omeprazole 40 mg capsule,delayed 40 mg PO DAILY 07/19/19 07/19/19 Unknown History release oxycodone 5 mg tablet 5 mg PO Q6H PRN 07/19/19 07/19/19 Unknown History amitriptyline 50 mg tablet 50 mg PO .HS #30 tab 10/11/19 10/11/19 Unknown Rx bupropion HCl 200 mg tablet,12 hr 200 mg PO BID #60 tab 10/11/19 10/11/19 Unknown Rx sustained-release Allergies Allergy/AdvReac Type Severity Reaction Status Date / Time No Known Allergies Allergy Verified 10/10/19 14:25 PFSH Acute PFSH: Medical History Chronic back pain Depression Disappearance and of family member Fibromyalgia Iron deficiency anemia Major depressive disorder, recurrent, mild Mild anemia Osteoporosis Peptic ulcer disease Port-A-Cath in place Undifferentiated somatoform disorder Surgical History H/O bilateral oophorectomy H/O colonoscopy H/O: hysterectomy For fibroid and endometriosis History of bone marrow biopsy History of partial gastrectomy Secondary to peptic ulcer disease, perforated ulcer Hx of endoscopy Family History Other Hypertension Psychiatric illness Social History Smoking and tobacco status: former smoker Alcohol intake: never Substance/Drug Use: never Housing: House Vitals/I&O/Wt Last Vital Signs Temp 103 F H 10/14/19 16:49 Pulse 114 H 10/14/19 16:49 Resp 18 10/14/19 17:55 BP 149/76 10/14/19 16:49 Pulse Ox 96 10/14/19 16:49 10/14/19 10/14/19 10/14/19 06:59 14:59 22:59 Intake Total 374.667 / 374.667 Balance 374.667 / 374.667 Weight last 48 hrs Weight 112 lb Physical Exam Const: COMMON NORMALS: no acute distress, alert and well nourished GENERAL APPEARANCE: well kempt and well developed ORIENTATION/CONSCIOUSNESS: not confused HENMT: COMMON NORMALS: normocephalic and atraumatic HEAD & SCALP: normocephalic and atraumatic Eye: COMMON NORMALS: conjunctivae normal and no scleral icterus CONJUNCTIVA: Yes conjunctivae normal Neck/C-Spine: COMMON NORMALS: full ROM GENERAL: Yes normal visual inspection Resp: COMMON NORMALS: normal respiratory effort and clear to auscultation bilaterally EFFORT & INSPECTION: No labored and No Actively coughing AUSCULTATION: clear to auscultation bilaterally Cardio: COMMON NORMALS: regular rate and regular rhythm RATE: regular rate RHYTHM: regular rhythm : OTHER: Bladder not distended Extremity: COMMON NORMALS: no clubbing, cyanosis or edema Neuro: COMMON NORMALS: no focal motor deficits SENSORIUM/ORIENTATION: Yes alert Psych: COMMON NORMALS: mental status grossly normal APPEARANCE: Yes grossly normal and Yes well kempt ATTITUDE: Yes calm and Yes engaged Skin: COMMON NORMALS: no rashes or lesions noted and no jaundice GENERAL SKIN EXAM: no rashes or lesions noted Data Micro: Micro: Microbiology 10/14/19 17:52 Blood Culture - Pr eliminary Blood SPECIMEN [facility] 10/14/19 17:15 Blood Culture - Pr eliminary Blood SPECIMEN [facility] Consult Attestations Medical Necessity Statement: Critically ill. Obstructing stone with pyelonephritis. Emergency stenting recommended and agreed to. 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
--- NOTE | 2019-10-14 20:22 | ANES.PREANE2 ---
Pre-Anesthetic Assessment Pre-Anesthetic Assessment: Height/Weight: Height 1.52 m Weight 50.802 kg Temp Pulse Resp BP Pulse Ox 103 F H 114 H 18 149/76 96 10/14/19 16:49 10/14/19 16:49 10/14/19 17:55 10/14/19 16:49 10/14/19 16:49 Preop Diagnosis: Stone Proposed Procedure: Operation Date: 10/14/19 20:20 Proposed Procedures p Cystoscopy(Not Applicable) - Brain rL MD Familial anesthetic complications: None Last intake: yesterday solids 1000 - water Social: Social History: No alcohol and No tobacco Exam: Pre-Anes Outpt Exam: alert, oriented x 3, clear to auscultation bilaterally and regular rate & rhythm Airway: Cervical ROM: WNL MP: 1 Dentition: False Pulmonary: Pulmonary: None reported CV/HEM: CV/HEM: DVT and HTN Comments: blood clots legs Anesthetic Plan: ASA status: 2E Anesthesia: General Other: severe hydronephrosis, wbc 20k, and fever 103F Risk of > 500 ml blood loss (7ml/kg in children): No PFSH Anesthesia PFSH: Medical History (Updated 10/14/19 @ 20:19 by Sobeida Saul MD) Chronic back pain Depression Disappearance and of family member Fibromyalgia Iron deficiency anemia Major depressive disorder, recurrent, mild Mild anemia Osteoporosis Peptic ulcer disease Port-A-Cath in place Undifferentiated somatoform disorder Surgical History (Updated 10/14/19 @ 20:19 by Sobeida Saul MD) H/O bilateral oophorectomy H/O colonoscopy H/O: hysterectomy For fibroid and endometriosis History of bone marrow biopsy History of partial gastrectomy Secondary to peptic ulcer disease, perforated ulcer Hx of endoscopy Family History (Updated 10/14/19 @ 20:20 by Sobeida Saul MD) Other Hypertension Psychiatric illness Social History (Updated 10/14/19 @ 20:20 by Sobeida Saul MD) Smoking and tobacco status: former smoker Alcohol intake: never Substance/Drug Use: never Housing: House Data Anesthesia CBC & Chem 7: 10/14/19 17:15 10/14/19 17:15 Other Labs: Laboratory Results - last 48 hr 10/14/19 10/14/19 10/14/19 17:15 17:15 17:15 WBC 20.4 H RBC 3.83 L Hgb 11.4 L Hct 34.9 L MCV 91.1 MCH 29.8 MCHC 32.7 RDW 12.8 Plt Count 225 MPV 9.3 Neut % (Auto) 90.8 Lymph % (Auto) 1.9 Russell % (Auto) 6.4 Eos % (Auto) 0.1 Baso % (Auto) 0.2 Neut # (Auto) 18.5 H Lymph # (Auto) 0.4 L Russell # (Auto) 1.3 H Eos # (Auto) 0.0 Baso # (Auto) 0.0 Nucleated RBC % (auto) 0 Nucleated RBCs # 0.0 Sodium 134 L Potassium 3.2 L Chloride 95 L Carbon Dioxide 21 L Anion Gap 21.2 H BUN 15 Creatinine 0.8 GFR Calculation 73.7 L Glucose 126 H Calculated Osmolality 276 L Lactate 0.9 Calcium 10.0 Total Bilirubin 0.4 AST 26 ALT 21 Alkaline Phosphatase 62 Total Protein 6.6 Albumin 4.4 Globulin 2.2 Urine Color Urine Appearance Urine pH Ur Specific [place] Urine Protein Urine Glucose (UA) Urine Ketones Urine Blood Urine Nitrate Urine Bilirubin Urine Urobilinogen Ur Leukocyte Esterase Urine RBC Urine WBC Ur Squamous Epith Cells Urine Bacteria Urine Mucus 10/14/19 18:00 WBC RBC Hgb Hct MCV MCH MCHC RDW Plt Count MPV Neut % (Auto) Lymph % (Auto) Russell % (Auto) Eos % (Auto) Baso % (Auto) Neut # (Auto) Lymph # (Auto) Russell # (Auto) Eos # (Auto) Baso # (Auto) Nucleated RBC % (auto) Nucleated RBCs # Sodium Potassium Chloride Carbon Dioxide Anion Gap BUN Creatinine GFR Calculation Glucose Calculated Osmolality Lactate Calcium Total Bilirubin AST ALT Alkaline Phosphatase Total Protein Albumin Globulin Urine Color Yellow Urine Appearance Cloudy Urine pH 5 Ur Specific [place] 1.010 Urine Protein 1+ H Urine Glucose (UA) Norm Urine Ketones 1+ H Urine Blood 3+ H Urine Nitrate Positive H Urine Bilirubin Neg Urine Urobilinogen Norm Ur Leukocyte Esterase 1+ H Urine RBC 15-25 H Urine WBC 40-55 H Ur Squamous Epith Cells 0-4 H Urine Bacteria 4+ H Urine Mucus 1+ Micro: Microbiology 10/14/19 17:52 Blood Culture - Preliminary Blood SPECIMEN COLLECTED 10/14/19 17:15 Blood Culture - Preliminary Blood SPECIMEN COLLECTED Cardiac Studies: No Data to Display
--- NOTE | 2019-10-14 20:27 | ED_ITS ---
HPI - Female Genitourinary General: Chief complaint: Urogenital-Female Stated complaint: kidney stone Time Seen by Provider: 10/14/19 16:59 History of Present Illness: HPI Narrative: 59-year-old female with a history of left flank pain, had a fever of 103. She has had kidney stones in the past MD elicited complaint: flank pain Onset (ago): day(s) Location of symptoms: flank (left) Severity: severe Female Urogenital Radiation: Non-Radiating Quality of pain: sharp and aching Consistency: constant Vaginal discharge: none Vaginal bleeding: none Urinary symptoms: Flank Pain Exacerbating factors: movement Relieving factors: none Associated symptoms: Reports abdominal pain, fevers/chills and nausea; Deny headache(s) Review of Systems Const: Reports: fever(s) and chills Eyes: Denies: change in vision ENMT: Denies: swelling of lips/tongue or sinus pain Card: Denies: chest pain, palpitations or irregular heart rhythm Resp: Denies: dyspnea, productive cough, non-productive cough or wheezing GI: Reports: abdominal pain and nausea : Reports: urinary frequency and hematuria; Denies: dysuria or urinary urgency Musc: Reports: back pain; Denies: neck pain Skin/Breast: Denies: rash, pruritus or erythema Neuro: Denies: headache(s), dizziness or vertigo Psych: Denies: anxiety PFSH ED PFSH: Medical History Chronic back pain Depression Disappearance and of family member Fibromyalgia Iron deficiency anemia Major depressive disorder, recurrent, mild Mild anemia Osteoporosis Peptic ulcer disease Port-A-Cath in place Undifferentiated somatoform disorder Surgical History H/O bilateral oophorectomy H/O colonoscopy H/O: hysterectomy For fibroid and endometriosis History of bone marrow biopsy History of partial gastrectomy Secondary to peptic ulcer disease, perforated ulcer Hx of endoscopy Family History Other Hypertension Psychiatric illness Social History Smoking and tobacco status: former smoker Alcohol intake: never Substance/Drug Use: never Housing: House Physical Exam Const: GENERAL APPEARANCE: well developed ORIENTATION/CONSCIOUSNESS: Yes oriented to person, Yes oriented to place and Yes oriented to time HENMT: COMMON NORMALS: normocephalic, external ears normal and Normal external nose present HEAD & SCALP: normocephalic FACE & SINUS: normal facial exam NOSE: Normal external nose present and No nasal discharge present EXTERNAL EAR: Yes external ears normal MOUTH: tongue normal Eye: COMMON NORMALS: Equal, round and reactive pupils present, EOMs intact bilaterally and conjunctivae normal EYELID: eyelids normal CONJUNCTIVA: Yes conjunctivae normal PUPIL: Yes Equal, round and reactive pupils present Neck/C-Spine: GENERAL: No tracheal deviation Chest: COMMONS NORMALS: normal inspection of the chest CHEST: No tenderness Resp: COMMON NORMALS: clear to auscultation bilaterally EFFORT & INSPECTION: No tachypneic, No respiratory distress, No retractions, No uses accessory muscles and No tracheal deviation AUSCULTATION: clear to auscultation bilaterally, no rhonchi, no wheezes and lung sounds not diminished Cardio: COMMON NORMALS: regular rate and regular rhythm RATE: regular rate RHYTHM: regular rhythm HEART SOUNDS: no murmurs PERIPHERAL PULSES: radial pulses present GI: INSPECTION: No abdominal distension AUSCULTATION: No Hyperactive bowel sounds present and No Hypoactive bowel sounds present PALPATION: No Guarding due to palpation present (GI) and No Rigid due to palpation PERCUSSION: no dullness to percussion and no tympanic to percussion : BLADDER/KIDNEY EXAM: Yes CVA tenderness on the left Back/Pelvis: GENERAL BACK: Yes CVA tenderness Neuro: SENSORIUM/ORIENTATION: Yes oriented to person, Yes oriented to place and Yes oriented to time Psych: COMMON NORMALS: mental status grossly normal Skin: COMMON NORMALS: no rashes or lesions noted GENERAL SKIN EXAM: no rashes or lesions noted Course Vital Signs: Vital signs: Vital Signs Temperature 103 F H 10/14/19 16:49 Pulse Rate 114 H 10/14/19 16:49 Respiratory Rate 18 10/14/19 17:55 Blood Pressure 149/76 10/14/19 16:49 Pulse Oximetry 96 10/14/19 16:49 MDM - Female MDM Narrative: Medical decision making narrative: 59-year-old female with a fever 103 and left flank pain. She has 2 mid ureter kidney stones on the left side, hydronephrosis, and a nitrite positive urinary tract infection. She has been given Zosyn, 1 L of fluid. She is also been given potassium for potassium of 3.2. Spoke with urology, he is coming in to see the patient to determine whether she needs to go to the OR tonight or not. Consulted the hospitalist who will see her in the ER as well. Lab Data: Labs: Lab Results 10/14/19 10/14/19 10/14/19 Range/Units 17:15 17:15 17:15 WBC 20.4 H (4.0-10.0) 10^3/ uL RBC 3.83 L (4.1-5.3) 10^6/u L Hgb 11.4 L (11.5-15.3) g/dL Hct 34.9 L (37.0-47.0) % MCV 91.1 (81-99) fL MCH 29.8 (28.0-34.0) pg MCHC 32.7 (30.0-36.0) g/dL RDW 12.8 (12.1-15.1) % Plt Count 225 (130-400) 10^3/c mm MPV 9.3 (7.4-10.4) fL Neut % (Auto) 90.8 % Lymph % (Auto) 1.9 % [place] % (Auto) 6.4 % Eos % (Auto) 0.1 % Baso % (Auto) 0.2 % Neut # (Auto) 18.5 H (1.8-7.7) 10^3/u L Lymph # (Auto) 0.4 L (0.8-4.8) 10^3/u L [place] # (Auto) 1.3 H (0.2-0.9) 10^3/u L Eos # (Auto) 0.0 (0.0-0.8) 10^3/u L Baso # (Auto) 0.0 (0.0-0.1) 10^3/u L Nucleated RBC % (a uto) 0 % Nucleated RBCs # 0.0 /100WBC Sodium 134 L (136-145) mmol/L Potassium 3.2 L (3.5-5.1) mmol/L Chloride 95 L (98-107) mmol/L Carbon Dioxide 21 L (22-29) mmol/L Anion Gap 21.2 H (5-19) BUN 15 (6-20) mg/dL Creatinine 0.8 (0.5-0.9) mg/dL GFR Calculation 73.7 L (90-130) mL/min Glucose 126 H (65-115) mg/dL Calculated Osmolal ity 276 L (285-295) mOsm/k g Lactate 0.9 (0.5-2.2) mmol/L Calcium 10.0 (8.5-10.5) mg/dL Total Bilirubin 0.4 (0.15-1.2) mg/dL AST 26 (0-32) U/L ALT 21 (0-33) U/L Alkaline Phosphata se 62 (35-105) IU/L Total Protein 6.6 (6.6-8.7) g/dL Albumin 4.4 (3.5-5.2) g/dL Globulin 2.2 (1.3-4.6) g/dL Urine Color (Yellow) Urine Appearance (CLEAR) Urine pH (5-7) Ur Specific Gravit y (1.005-1.030) Urine Protein (Negative) Urine Glucose (UA) (Normal) Urine Ketones (Negative) Urine Blood (Negative) Urine Nitrate (Negative) Urine Bilirubin (NEGATIVE) Urine Urobilinogen (Negative) mg/dL Ur Leukocyte Diane ase (Negative) Urine RBC (0-2) /hpf Urine WBC (0-5) /hpf Ur Squamous Epith Cells (0-5) Urine Bacteria (NONE) Urine Mucus 10/14/19 Range/Units 18:00 WBC (4.0-10.0) 10^3/ uL RBC (4.1-5.3) 10^6/u L Hgb (11.5-15.3) g/dL Hct (37.0-47.0) % MCV (81-99) fL MCH (28.0-34.0) pg MCHC (30.0-36.0) g/dL RDW (12.1-15.1) % Plt Count (130-400) 10^3/c mm MPV (7.4-10.4) fL Neut % (Auto) % Lymph % (Auto) % [place] % (Auto) % Eos % (Auto) % Baso % (Auto) % Neut # (Auto) (1.8-7.7) 10^3/u L Lymph # (Auto) (0.8-4.8) 10^3/u L [place] # (Auto) (0.2-0.9) 10^3/u L Eos # (Auto) (0.0-0.8) 10^3/u L Baso # (Auto) (0.0-0.1) 10^3/u L Nucleated RBC % (a uto) % Nucleated RBCs # /100WBC Sodium (136-145) mmol/L Potassium (3.5-5.1) mmol/L Chloride (98-107) mmol/L Carbon Dioxide (22-29) mmol/L Anion Gap (5-19) BUN (6-20) mg/dL Creatinine (0.5-0.9) mg/dL GFR Calculation (90-130) mL/min Glucose (65-115) mg/dL Calculated Osmolal ity (285-295) mOsm/k g Lactate (0.5-2.2) mmol/L Calcium (8.5-10.5) mg/dL Total Bilirubin (0.15-1.2) mg/dL AST (0-32) U/L ALT (0-33) U/L Alkaline Phosphata se (35-105) IU/L Total Protein (6.6-8.7) g/dL Albumin (3.5-5.2) g/dL Globulin (1.3-4.6) g/dL Urine Color Yellow (Yellow) Urine Appearance Cloudy (CLEAR) Urine pH 5 (5-7) Ur Specific Gravit y 1.010 (1.005-1.030) Urine Protein 1+ H (Negative) Urine Glucose (UA) Norm (Normal) Urine Ketones 1+ H (Negative) Urine Blood 3+ H (Negative) Urine Nitrate Positive H (Negative) Urine Bilirubin Neg (NEGATIVE) Urine Urobilinogen Norm (Negative) mg/dL Ur Leukocyte Diane ase 1+ H (Negative) Urine RBC 15-25 H (0-2) /hpf Urine WBC 40-55 H (0-5) /hpf Ur Squamous Epith Cells 0-4 H (0-5) Urine Bacteria 4+ H (NONE) Urine Mucus 1+ Discharge Plan Discharge Patient Disposition: Admitted As Inpatient Clinical Impression: Ureterolithiasis Urinary tract infection Qualifiers: Urinary tract infection type: acute cystitis Hematuria presence: with hematuria Qualified Code(s): N30.01 - Acute cystitis with hematuria Condition: Stable Referrals: Thanh Meyer MD [Primary Care Provider] - Coding Level of Care Code ED Collection Card Clerk for [facility]
[2019-10-14] MEDS: potassium chloride premix 40 MEQ/100 ML PREMIX 25 MEQ IV (20:29)
--- NOTE | 2019-10-14 20:34 | PC.NURSE ---
Patient left in stable condition in care of surgery team with ivf infusing.
--- NOTE | 2019-10-14 20:40 | SC_ITS ---
WS: [id number] [facility] for Urology REASON FOR EXAM: stent placement FINDINGS: Utilizing C-arm imaging a cyst stent is placed in the left kidney the positioning is quite satisfactory. SC/C-[facility] for Urology IMPRESSION: Stent placement satisfactory
--- NOTE | 2019-10-14 20:40 | P.OP_ITS ---
Operative Report Date of procedure: October 14, 2019 Pre-op Diagnosis: Left obstructive pyelonephritis Post-op diagnosis: same Procedure Done: Cystoscopy, left ureteral stent placement Pathology: none sent Anesthesia: General Estimated blood loss: Minimal Urine output: Not measured Brief History: Preeti is a very pleasant 59-year-old white female who I evaluated for the first time tonight requesting the emergency department for left obstructive pyelonephritis secondary to a large left mid ureteral stone with high-grade obstruction and grossly infected urine. Fever of 103, white count of 20+. Thankfully she was hemodynamically stable but due to the significant risk of morbidity and mortality associated with obstructive pyelonephritis it was recommended to proceed to the operating room emergently for cystoscopy left ureteral stent placement. We reviewed alternative strategies including percutaneous nephrostomy tube placement with interventional radiology in [place] if access cannot be obtained from below. Some concern that the stone potentially has been there for a long time based on a CT scan in 2018 showing an obstructing left proximal ureteral stone that she never actually caught. She thought that she had passed it based on improvement in her symptoms. Procedure: After emergent evaluation examination and obtaining of informed consent she was taken to the operating suite on 10/14/2019 where general anesthesia was administered without difficulty after appropriate timeout was performed, SCDs confirmed to be functioning, preoperative antibiotics administered, beta-ayaka protocol confirmed. Prepped and draped in usual sterile fashion in dorsolithotomy position pain careful attention to avoiding pressure points. 21 Malay cystoscope with 30 degree lens was introduced into the urethral meatus and advanced to the bladder to videoscopy. Bladder was systematically examined and showed no evidence of chronic cystitis. A flexible tip guidewire was then advanced up the left ureter curling just below the stone. An open-ended ureteral catheter was then advanced over the guidewire which facilitated easy passage of the guidewire past the stone up into the renal pelvis. The open-ended ureteral catheter was advanced over the wire and a small amount of contrast was injected just to confirm renal pelvic location. The catheter was removed after placement of a guidewire.. A 7 Malay by 26 cm double-pigtail stent was advanced over the guidewire through the cystoscope into appropriate position as confirmed via fluoroscopy and cystoscopy. Bladder was drained with a Pope catheter. Tolerated the procedure well without complications and was awakened in the operating room and returned to the recovery in stable condition. She remained hemodynamically stable throughout the procedure. PLANS: 1. Admit to the floor 2. We will continue the stent until her infection is cleared and then more definitively address the stone.
[2019-10-14] MEDS: iohexol 300 mg/mL 50 mL Btl (OR ONLY) XX (21:09)
--- NOTE | 2019-10-14 21:15 | SUR.OPER ---
inserted by dr. pichardo
[2019-10-14] MEDS: morphine 4 mg/mL SDV 1 mL 2 MG IVP (22:18)
[2019-10-14] MEDS: sodium chloride 0.9% 1,000 ML 75 ML IV (22:19)
[2019-10-15] VITALS (20 sets, daily range): BP systolic 105–131; BP diastolic 57–80; PULSE 72–111; RESP 16–20; TEMP 36.4–37.2; O2SAT 92–98
[2019-10-15] MEDS: ondansetron 2 mg/ML SDV 2 mL 4 MG IVP ×3 (00:31→18:49)
[2019-10-15] MEDS: morphine 4 mg/mL SDV 1 mL 2 MG IVP ×8 (00:31→23:25)
[2019-10-15] MEDS: oxyCODONE-APAP 5-325 mg Tablet 1 TAB PO ×4 (00:32→18:53)
[2019-10-15 04:45] LABS: Basophils % 0.2 %; Eosinophils % 0.1 %; Hematocrit 29.2 % (37.0-47.0); Hemoglobin 9.4 g/dL (11.5-15.3); Lymphocytes # 0.2 10^3/uL (0.8-4.8); Lymphocytes % 2.5 %; Mean Corpuscular HGB Conc 32.2 g/dL (30.0-36.0); Mean Corpuscular Hemoglobin 30.1 pg (28.0-34.0); Mean Corpuscular Volume 93.6 fL (81-99); Mean Platelet Volume 9.3 fL (7.4-10.4); Monocytes # 0.5 10^3/uL (0.2-0.9); Monocytes % 6.1 %; Neutrophils # 7.7 10^3/uL (1.8-7.7); Neutrophils % 90.2 %; Nucleated Red Blood Cells % 0 %; Platelet Count 152 10^3/cmm (130-400); Red Blood Count 3.12 10^6/uL (4.1-5.3); White Blood Count 8.6 10^3/uL (4.0-10.0)
[2019-10-15 04:58] LABS: Blood Urea Nitrogen 11 mg/dL (6-20); Calcium 8.5 mg/dL (8.5-10.5); Carbon Dioxide 21 mmol/L (22-29); Chloride 105 mmol/L (98-107); Glomerular Filtration Rate 73.7 mL/min (90-130); Glucose 117 mg/dL (65-115); Osmolality Calculated 281 mOsm/kg (285-295); Sodium 137 mmol/L (136-145)
--- NOTE | 2019-10-15 07:27 | P.PN_ITS ---
Subjective Subjective: Interval history: Postoperative day #1. Feeling better overall. Is complaining of migraine symptoms which she apparently has on a not infrequent basis. No fever spikes. No persistent nausea and vomiting. Medications: Reviewed: Yes Vitals/I&O/Wt Last Vital Signs Temp 98.6 F 10/15/19 04:35 Pulse 103 H 10/15/19 04:35 Resp 18 10/15/19 06:20 BP 108/57 10/15/19 04:35 Pulse Ox 94 10/15/19 04:35 10/14/19 10/15/19 10/15/19 22:59 06:59 14:59 Intake Total 717.584 / 861.356 6565.583 / 1942.167 Output Total 0 / 0 350 / 350 Balance 717.584 / 717.584 874.583 / 1592.167 Weight last 48 hrs Weight 112 lb Physical Exam Const: COMMON NORMALS: no acute distress, alert and well nourished GENERAL APPEARANCE: well kempt and well developed ORIENTATION/CONSCIOUSNESS: not confused Neck/C-Spine: COMMON NORMALS: full ROM Resp: COMMON NORMALS: normal respiratory effort EFFORT & INSPECTION: No labored and No Actively coughing Neuro: COMMON NORMALS: no focal motor deficits SENSORIUM/ORIENTATION: Yes alert Psych: COMMON NORMALS: mental status grossly normal APPEARANCE: Yes grossly normal and Yes well kempt ATTITUDE: Yes calm and Yes engaged Urinary Catheter Management^: Pope Latex: Cath Placed During This Visit: yes Urinary Catheter Date of Insertion: 10/14/19 Urinary Catheter Time of Insertion: 21:15 Data : 10/17/19 02:12 10/17/19 02:12 Micro: Microbiology 10/14/19 17:52 Blood Culture - Preliminary Blood SPECIMEN COLLECTED 10/14/19 17:15 Blood Culture - Preliminary Blood SPECIMEN COLLECTED A&P Assessment and plan (1) Ureterolithiasis: Status post emergency stenting last night. Resolution of renal colicky symptoms Status: Acute (2) Pyelonephritis: No progressive infectious concerns postoperatively. Status: Acute Attestations Medical Necessity Statement*: See attending Coding Level of Care Code Acute [employer] Open Stack Administrator for [facility] Fwd Exam Detailed Diagnoses Ureterolithiasis N20.1 Pyelonephritis N12
[2019-10-15] MEDS: buPROPion SR (12 HR) 100 mg Tablet 200 MG PO ×2 (08:46→17:45)
[2019-10-15] MEDS: pantoprazole DR 40 mg Tablet PO (08:47)
[2019-10-15] MEDS: sennosides-docusate Tablet 2 TAB PO (08:47)
[2019-10-15] MEDS: duloxetine 60 mg Capsule PO (08:47)
[2019-10-15] MEDS: cefTRIAXone 1,000 MG in sodium chloride 0.9% (plus) 50 ML 100 MG IV (08:50)
--- NOTE | 2019-10-15 09:09 | PC.NURSE ---
gayle removed, 9cc saline removed from balloon, pt tolerated well.
--- NOTE | 2019-10-15 10:09 | PC.CHAP ---
Pastoral Care Encounter/Spiritual Assessment Type of Contact [] Declined label drier visit [] Patient/Family/Request visit [] Outpatient visit [] Follow-up visit [] Physician referral [] Code/Alert [x] Routine visit [] Staff referral [] Actively dying [] Patient sleeping [] Family support [] [] Out of room [] Palliative care [] [] Receiving care in room [] Pre-surgical visit [] Trauma [] Long length of stay [] ICU visit [] Other: Relational/Emotional Strength [] Patient feels connected with others/family/visitors/staff [] Distress [] Loneliness/isolation [] Abandonment Spirituality of Patient [] Person of Kait [] Attends Mandaen of their Kait [] Believes in Prayer [] Reads Bible or Gnosticist materials [] There are Spiritual issues to be addressed Company Driver Interventions [x] Prayer [] Active listening [] Non-anxious presence [] Spiritual/emotional support [] Crisis/trauma care [] Spiritual counseling [] Bereavement support [] Provided bereavement packet [] Provided Bible/devotional materials [] Provided toy/stuffed animal, coloring book to patient or family member [] Provided Communion [] Anointing/[place] [] Salvation [x] Completed spiritual assessment [] Other: Impact on Illness or Injury [] Angry [] Fearful [] Anxious [] Often cries [] Exhaustion [] Unable to work [] Unable to attend gnosticist [] Unable to walk/stand [] Unable to read [] Unable to drive [] Unable to eat/drink [] Unable to sleep [] Unable to be with family [] Patient intubated [] Other: Summary Kidney stone issues. Feeling a lot of relief, but knows not all has been addressed. Great spirits, and looking forward to next step. Time spent with patient 10 min
[2019-10-15] MEDS: sodium chloride 0.9% 1,000 ML 75 ML IV ×2 (10:58→23:30)
--- NOTE | 2019-10-15 12:48 | P.PN_ITS ---
Subjective Subjective: Interval history: No acute events overnight. Postoperative day #1. Feeling better overall. Is complaining of migraine symptoms which she apparently has on a not infrequent basis. No fever spikes. No persistent nausea and vomiting. Medications: Reviewed: Yes Vitals/I&O/Wt Last Vital Signs Temp 98.9 F 10/15/19 11:21 Pulse 87 10/15/19 11:21 Resp 18 10/15/19 12:15 BP 108/72 10/15/19 11:21 Pulse Ox 97 10/15/19 11:21 10/14/19 10/15/19 10/15/19 22:59 06:59 14:59 Intake Total 717.584 / 434.937 5201.583 / 5758.531 7195.5 / 1032.5 Output Total 0 / 0 350 / 350 750 / 750 Balance 717.584 / 717.584 874.583 / 1592.167 282.5 / 282.5 Weight last 48 hrs Weight 50.802 kg Physical Exam Narrative: EXAM NARRATIVE: General: No acute distress, AO x3 HEENT: PERRLA, pupils bilaterally equal and reactive Chest: Normal vesicular breath sounds, no added sounds, equal good air entry bilaterally CVS: S1-S2 regular, no murmurs, no tachycardia, no gallops, no rubs Abdomen: Soft, nontender, no organomegaly, bowel sounds present Neuro: No focal deficits, no facial deformity, AO x3, power 5/5 in all limbs Urinary Catheter Management^: Pope Latex: Cath Placed During This Visit: yes Urinary Catheter Date of Insertion: 10/14/19 Urinary Catheter Time of Insertion: 21:15 Data : 10/15/19 04:10 10/15/19 04:10 Micro: Microbiology 10/14/19 18:00 Urine Culture - Preliminary Urine,Clean Catch Gram Negative Rods 10/14/19 17:52 Blood Culture - Preliminary Blood SPECIMEN COLLECTED 10/14/19 17:15 Blood Culture - Preliminary Blood SPECIMEN COLLECTED A&P Assessment and plan (1) Obstructive pyelonephritis: Status: Acute (2) Ureterolithiasis: Status: Acute (3) Major depressive disorder, recurrent, mild: Status: Acute Additional A&P Information Obstructive pyelonephritis: Sepsis on admission because of fever, tachycardia, leukocytosis. Postop day 1. Cystoscopy, left ureteral stent placement. Patient would most likely require lithotripsy as an outpatient in a week and after that stent removal most likely. Continue with ceftriaxone for now. Will de-escalate antibiotics as per the culture results. Continue to follow-up urine, blood cultures. Major depressive disorder Currently attending [facility]. Continue with home dose of amitriptyline, Cymbalta, bupropion Chronic anemia: Port-A-Cath placement for iron transfusion for her iron deficiency anemia With Dr. Medina. Patient with chronic anemia. She has had recurrent episodes of iron deficiency. This is likely due to combination of GI blood loss and inadequate oral iron absorption. She has responded adequately to parenteral iron replacement. She has an extensive history of gastrointestinal disease, including GERD and history of perforated ulcer. Her prior surgeries include partial gastrectomy and partial small bowel resection with Billroth I anastomosis and partial colectomy in 2010. Iron panel appreciated. Cardiac diet. Lovenox for DVT prophylaxis Full code. DC Pope catheter Attestations Medical Necessity Statement*: Obstructive pyelonephritis Time Spent in Patient Care: Greater than 35 minutes Coding Level of Care Code Acute Absence Management Consultant for [facility] Fw Diagnoses Obstructive pyelonephritis N11.1 Ureterolithiasis N20.1 Major depressive disorder, recurrent, mild F33.0
[2019-10-15] MEDS: enoxaparin 40 mg/0.4 mL Syringe SUBCUT (20:20)
[2019-10-16] VITALS (14 sets, daily range): BP systolic 122–149; BP diastolic 75–88; PULSE 72–92; RESP 16–20; TEMP 36.6–37.2; O2SAT 96–98
[2019-10-16] MEDS: oxyCODONE-APAP 5-325 mg Tablet 1 TAB PO ×4 (01:27→20:13)
[2019-10-16] MEDS: morphine 4 mg/mL SDV 1 mL 2 MG IVP ×5 (04:51→17:46)
[2019-10-16] MEDS: ondansetron 2 mg/ML SDV 2 mL 4 MG IVP ×2 (05:08→21:49)
[2019-10-16 05:22] LABS: Basophils % 0.3 %; Eosinophils # 0.1 10^3/uL (0.0-0.8); Eosinophils % 0.8 %; Hematocrit 29.2 % (37.0-47.0); Hemoglobin 9.2 g/dL (11.5-15.3); Lymphocytes # 0.4 10^3/uL (0.8-4.8); Lymphocytes % 6.1 %; Mean Corpuscular HGB Conc 31.5 g/dL (30.0-36.0); Mean Corpuscular Hemoglobin 29.1 pg (28.0-34.0); Mean Corpuscular Volume 92.4 fL (81-99); Mean Platelet Volume 9.8 fL (7.4-10.4); Monocytes # 0.6 10^3/uL (0.2-0.9); Monocytes % 9.8 %; Neutrophils # 4.8 10^3/uL (1.8-7.7); Nucleated Red Blood Cells % 0 %; Platelet Count 166 10^3/cmm (130-400); Red Blood Count 3.16 10^6/uL (4.1-5.3); Red Cell Distribution Width 12.9 % (12.1-15.1); White Blood Count 5.9 10^3/uL (4.0-10.0)
[2019-10-16 05:56] LABS: Alanine Aminotransferase 265 U/L (0-33); Alkaline Phosphatase 228 IU/L (35-105); Anion Gap 14.9 (5-19); Aspartate Amino Transferase 311 U/L (0-32); Blood Urea Nitrogen 5 mg/dL (6-20); Calcium 8.5 mg/dL (8.5-10.5); Carbon Dioxide 21 mmol/L (22-29); Chloride 102 mmol/L (98-107); Globulin 2.6 g/dL (1.3-4.6); Glomerular Filtration Rate 102.7 mL/min (90-130); Glucose 112 mg/dL (65-115); Osmolality Calculated 276 mOsm/kg (285-295); Sodium 135 mmol/L (136-145); Total Bilirubin 0.2 mg/dL (0.15-1.2); Total Protein 5.6 g/dL (6.6-8.7)
[2019-10-16 06:13] LABS: Potassium 2.9 mmol/L (3.5-5.1)
--- NOTE | 2019-10-16 07:35 | P.PN_ITS ---
Subjective Subjective: Interval history: Urology follow-up note: Postop day #2 emergency stent placement for obstructive pyelonephritis Feeling much better. Having typical stent symptoms of urgency, frequency, urgency incontinence, pelvic pressure. Cultures were growing gram-negative bacteria in her blood. Final pending. No progressive infectious symptoms or objective data otherwise. White count has normalized. Denies fever, chills, chest pain. Not back to baseline but continues significa nt improvement overall. Reviewed the significance of her illness. She is planning to back out of her trip to [facility]. After her discharge, I will plan on seeing her in my office on Tuesday with a KUB and make plans accordingly for attempt at definitive therapy for the stone either via ESWL or endoscopy. Medications: Reviewed: Yes Vitals/I&O/Wt Last Vital Signs Temp 98.2 F 10/16/19 04:00 Pulse 86 10/16/19 04:00 Resp 18 10/16/19 04:51 BP 126/75 10/16/19 04:00 Pulse Ox 96 10/16/19 04:51 10/15/19 10/16/19 10/16/19 22:59 06:59 14:59 Intake Total 240 / 1272.5 940 / 2212.5 Output Total 600 / 1350 1400 / 2750 Balance -360 / -77.5 -460 / -537.5 Weight last 48 hrs Weight 112 lb Physical Exam Const: COMMON NORMALS: no acute distress, alert and well nourished GENERAL APPEARANCE: well kempt and well developed ORIENTATION/CONSCIOUSNESS: not confused HENMT: COMMON NORMALS: normocephalic and atraumatic HEAD & SCALP: normocephalic and atraumatic Eye: COMMON NORMALS: conjunctivae normal and no scleral icterus CONJUNCTIVA : Yes conjunctivae normal Neck/C-Spine: COMMON NORMALS: full ROM GENERAL: Yes normal visual inspection Resp: COMMON NORMALS: normal respiratory effort EFFORT & INSPECTION: No labored and No Actively coughing Extremity: COMMON NORMALS: no clubbing, cyanosis or edema Neuro: COMMON NORMALS: no focal motor deficits SENSORIUM/ORIENTATION: Yes alert Psych: COMMON NORMALS: mental status grossly normal APPEARANCE: Yes grossly normal and Yes well kempt ATTITUDE: Yes calm and Yes engaged Skin: COMMON NORMALS: no rashes or lesions noted and no jaundice GENERAL SKIN EXAM: no rashes or lesions noted Urinary Catheter Management^: Pope Latex: Cath Placed During This Visit: yes Urinary Catheter Date of Insertion: 10/14/19 Urinary Catheter Time of Insertion: 21:15 Data : 10/16/19 04:30 10/16/19 04:30 Micro: Microbiology 10/14/19 18:00 Urine Culture - Final Urine,Clean Catch Klebsiella pneumoniae 10/15/19 17:20 Blood Culture - Preliminary Blood SPECIMEN COLLECTED 10/14/19 17:15 Blood Culture - Preliminary Blood NEGATIVE TO DATE 10/15/19 16:14 Blood Culture - Preliminary Blood SPECIMEN COLLECTED 10/14/19 17:52 Blood Culture - Preliminary Blood Gram Negative Rods A&P Assessment and plan (1) Obstructive pyelonephritis: Status post emergency stenting. Clinically improving. Blood cultures were positive with final identification pending. Status: Acute (2) Ureterolithiasis: Large obstructing stone left mid ureter complicated by UTI Status: Acute (3) Overactive bladder: Secondary to the stent. We will try Ditropan XL 10 mg daily. Status: Acute Attestations Medical Necessity Statement*: See attending Coding Level of Care Code Acute Elevator Operator Freight for g Fwd Diagnoses Obstructive pyelonephritis N11.1 Ureterolithiasis N20.1 Overactive bladder N32.81
[2019-10-16] MEDS: potassium chloride ER 10 mEq Tablet 40 MEQ PO (07:41)
[2019-10-16] MEDS: buPROPion SR (12 HR) 100 mg Tablet 200 MG PO ×2 (07:41→16:43)
[2019-10-16] MEDS: duloxetine 60 mg Capsule PO (07:41)
[2019-10-16] MEDS: sennosides-docusate Tablet 2 TAB PO (07:41)
[2019-10-16] MEDS: cefTRIAXone 1,000 MG in sodium chloride 0.9% (plus) 50 ML 100 MG IV (07:42)
[2019-10-16] MEDS: pantoprazole DR 40 mg Tablet PO (07:42)
[2019-10-16] MEDS: oxybutynin chloride XL 5 MG TABLET 10 MG PO (07:48)
--- NOTE | 2019-10-16 11:59 | ECG_ITS ---
[facility] Test Date: 2019-10-16 Pat Name: Preeti Odom Department: Room: 270 Gender: 1 Unarmed Security Guard: : [id number] Requested By: Jarrett Landeros Order Number: [id number] Reading MD: Audrey Martinez M.D. Measurements Intervals [place] Rate: 71 P: 31 [place]: 172 QRS: -1 QRSD: 89 T: 23 QT: 358 QTc: 391 Interpretive Statements SINUS RHYTHM INFERIOR MYOCARDIAL INFARCTION [40+ ms Q WAVE AND/OR ST/T ABNORMALITY IN II/aVF], PROBABLY OLD No previous ECG available for comparison Electronically Signed On 10-17-2019 13:44:50 CDT by Audrey Martinez M.D. [id number]
[2019-10-16] MEDS: sodium chloride 0.9% 1,000 ML 75 ML IV (12:06)
[2019-10-16] MEDS: potassium chloride ER 10 mEq Tablet 80 MEQ PO (12:06)
[2019-10-16 13:15] LABS: Hepatitis A Antibody IgM Non-Reactive (Nonreactive); Hepatitis B Core AB, Total Non-Reactive (Nonreactive); Hepatitis B Surface AB 3.5 (0-8.5); Hepatitis B Surface Antigen Non-Reactive (Nonreactive); Hepatitis C Virus Antibody Non-Reactive (Nonreactive)
--- NOTE | 2019-10-16 16:19 | P.PN_ITS ---
Subjective Subjective: Interval history: No acute events overnight. Blood cultures yesterday came back positive for gram-negative bacteremia. Morning labs consistent with deranged liver functions. She is complaining of urinary urgency, lower abdominal pain states her back pain is better but is complaining of bladder heaviness. On interviewing she states she uses around 4 beer every day for a long time, denies any persistent nausea, vomiting, rash, headache, dizziness, hallucinations, tremors, chest pain. Patient has remained afebrile and hemodynamically stable. Vitals/I&O/Wt Last Vital Signs Temp 98.6 F 10/16/19 15:09 Pulse 76 10/16/19 15:09 Resp 20 H 10/16/19 15:09 BP 122/75 10/16/19 15:09 Pulse Ox 97 10/16/19 15:09 10/16/19 10/16/19 10/16/19 06:59 14:59 22:59 Intake Total 940 / 2262.5 945 / 945 Output Total 1400 / 2750 800 / 800 Balance -460 / -487.5 145 / 145 Weight last 48 hrs Weight 50.802 kg Physical Exam Narrative: EXAM NARRATIVE: General: No acute distress, AO x3, pallor present HEENT: PERRLA, pupils bilaterally equal and reactive Chest: Normal vesicular breath sounds, no added sounds, equal good air entry bilaterally CVS: S1-S2 regular, no murmurs, no tachycardia, no gallops, no rubs Abdomen: Soft, nontender, no organomegaly, bowel sounds present, no renal angle tenderness, mild tenderness in supra pubic area Neuro: No focal deficits, no facial deformity, AO x3, power 5/5 in all limbs Urinary Catheter Management^: Pope Latex: Cath Placed During This Visit: yes Urinary Catheter Date of Insertion: 10/14/19 Urinary Catheter Time of Insertion: 21:15 Data : 10/16/19 04:30 10/16/19 04:30 Micro: Microbiology 10/15/19 16:14 Blood Culture - Preliminary Blood NEGATIVE TO DATE 10/14/19 18:00 Urine Culture - Final Urine,Clean Catch Klebsiella pneumoniae 10/15/19 17:20 Blood Culture - Preliminary Blood SPECIMEN COLLECTED 10/14/19 17:15 Blood Culture - Preliminary Blood NEGATIVE TO DATE 10/14/19 17:52 Blood Culture - Preliminary Blood Gram Negative Rods A&P Assessment and plan (1) Obstructive pyelonephritis: Status: Acute (2) Ureterolithiasis: Status: Acute (3) Liver function abnormality: Status: Acute (4) Alcohol abuse: Status: Acute (5) Iron deficiency anemia: Status: Acute (6) Major depressive disorder, recurrent, mild: Status: Acute (7) Gram-negative bacteremia: Status: Acute Additional A&P Information Obstructive pyelonephritis: Sepsis on admission because of fever, tachycardia, leukocytosis. Appreciate Dr. Lr's recommendations Postop day 2. Cystoscopy, left ureteral stent placement. Patient would most likely require lithotripsy as an outpatient in a week and after that stent removal most likely. Blood culture from admission postive for GNB, repeat negative so far. Ucx positive for Klebsiella pnemoniae. Given deranged liver functions we will stop ceftriaxone as beta-lactam's can cause cholestasis liver dysfunction. Change to ciprofloxacin 500 mg p.o. twice daily as per culture directed treatment. Check EKG prior to ciprofloxacin to look for QTC. Patient will most likely require antibiotic treatment for 14 days post removal of stent. Deranged liver functions: Most likely due to beta-lactam induced cholestasis along with chronic liver dysfunction because of chronic alcohol abuse. Check hepatitis panel, liver ultrasound to rule out cirrhosis. We will continue to monitor CMP daily. Patient does not have any clinical signs of liver failure for now. Alcohol abuse: Patient states she drinks around 4 beers every day. CIWA?3 today Banana bag, oral thiamine, folic acid 1 g twice daily Ativan as per [facility] protocol and required. Major depressive disorder Currently attending [facility]. Continue with home dose of amitriptyline, Cymbalta, bupropion Chronic anemia: Port-A-Cath placement for iron transfusion for her iron deficiency anemia Follows up ith Dr. Medina. She has had recurrent episodes of iron deficiency. This is likely due to combination of GI blood loss and inadequate oral iron absorption. She has responded adequately to parenteral iron replacement. She has an extensive history of gastrointestinal disease, including GERD and history of perforated ulcer. Her prior surgeries include partial gastrectomy and partial small bowel resection with Billroth I anastomosis and partial colectomy in 2010. Iron panel appreciated. Folic acid low. Cardiac diet. Lovenox for DVT prophylaxis Full code. DC Pope catheter Attestations Medical Necessity Statement*: GNB, pyelonephritis Time Spent in Patient Care: Greater than 35 minutes Coding Level of Care Code Acute Legal Nurse Consultant for [facility] Fwd Diagnoses Obstructive pyelonephritis N11.1 Ureterolithiasis N20.1 Liver function abnormality R94.5 Alcohol abuse F10.10 Iron deficiency anemia D50.9 Major depressive disorder, recurrent, mild F33.0 Gram-negative bacteremia R78.81
[2019-10-16] MEDS: folic acid 1 MG, multivitamin inj 10 ML, thiamine 100 MG in sodium chloride 0.9% 1,000 ML 252.8 MG IV (16:42)
[2019-10-16] MEDS: folic acid 1 mg Tablet PO (16:43)
[2019-10-16] MEDS: ciprofloxacin 500 mg Tablet PO (16:43)
[2019-10-16 18:13] LABS: Alanine Aminotransferase 217 U/L (0-33); Albumin Level 3.1 g/dL (3.5-5.2); Alkaline Phosphatase 217 IU/L (35-105); Anion Gap 15.1 (5-19); Aspartate Amino Transferase 168 U/L (0-32); Blood Urea Nitrogen 4 mg/dL (6-20); Calcium 8.4 mg/dL (8.5-10.5); Carbon Dioxide 20 mmol/L (22-29); Chloride 105 mmol/L (98-107); Globulin 2.5 g/dL (1.3-4.6); Glomerular Filtration Rate 126.7 mL/min (90-130); Glucose 113 mg/dL (65-115); Osmolality Calculated 278 mOsm/kg (285-295); Potassium 4.1 mmol/L (3.5-5.1); Sodium 136 mmol/L (136-145); Total Bilirubin 0.2 mg/dL (0.15-1.2); Total Protein 5.6 g/dL (6.6-8.7)
[2019-10-16] MEDS: enoxaparin 40 mg/0.4 mL Syringe SUBCUT (20:16)
[2019-10-16] MEDS: LORazepam 2 mg Tablet PO (21:49)
[2019-10-17] VITALS (7 sets, daily range): BP systolic 117–134; BP diastolic 70–82; PULSE 82–96; RESP 16–20; TEMP 36.8–37.3; O2SAT 94–100
[2019-10-17 02:27] LABS: Basophils % 0.5 %; Eosinophils # 0.1 10^3/uL (0.0-0.8); Eosinophils % 2.2 %; Hematocrit 27.5 % (37.0-47.0); Hemoglobin 8.7 g/dL (11.5-15.3); Lymphocytes # 0.5 10^3/uL (0.8-4.8); Lymphocytes % 11.1 %; Mean Corpuscular HGB Conc 31.6 g/dL (30.0-36.0); Mean Corpuscular Hemoglobin 29.2 pg (28.0-34.0); Mean Corpuscular Volume 92.3 fL (81-99); Mean Platelet Volume 9.4 fL (7.4-10.4); Monocytes # 0.6 10^3/uL (0.2-0.9); Monocytes % 13.5 %; Neutrophils % 71.7 %; Nucleated Red Blood Cells % 0 %; Platelet Count 195 10^3/cmm (130-400); Red Blood Count 2.98 10^6/uL (4.1-5.3); Red Cell Distribution Width 13.2 % (12.1-15.1); White Blood Count 4.2 10^3/uL (4.0-10.0)
[2019-10-17 02:46] LABS: Alanine Aminotransferase 180 U/L (0-33); Albumin Level 3.1 g/dL (3.5-5.2); Alkaline Phosphatase 205 IU/L (35-105); Anion Gap 11.9 (5-19); Aspartate Amino Transferase 106 U/L (0-32); Blood Urea Nitrogen 3 mg/dL (6-20); Calcium 8.8 mg/dL (8.5-10.5); Carbon Dioxide 22 mmol/L (22-29); Chloride 107 mmol/L (98-107); Globulin 2.1 g/dL (1.3-4.6); Glomerular Filtration Rate 85.9 mL/min (90-130); Glucose 109 mg/dL (65-115); Osmolality Calculated 280 mOsm/kg (285-295); Potassium 3.9 mmol/L (3.5-5.1); Sodium 137 mmol/L (136-145); Total Bilirubin 0.2 mg/dL (0.15-1.2); Total Protein 5.2 g/dL (6.6-8.7)
[2019-10-17] MEDS: sodium chloride 0.9% 1,000 ML 75 ML IV (04:58)
[2019-10-17] MEDS: LORazepam 2 mg Tablet PO (06:45)
--- NOTE | 2019-10-17 07:00 | US_ITS ---
WS: [id number] ABDOMINAL ULTRASOUND LIMITED REASON FOR VISIT: abnormal lft TECHNIQUE: Grayscale and Doppler ultrasound examination of the abdomen. FINDINGS: Pancreas: Normal Abdominal aorta and IVC: Within normal limits. Liver: Liver measures 11.3 cm in length. Hyperechoic consistent with fatty infiltration. Normal hepat opedal circulation. Gallbladder: Status post cholecystectomy. Common bile duct measures 0.76 cm Right kidney: Right kidney measures 11.0 cm x 4.3 cm x 4.1 cm. No hydronephrosis no stones. US/US liver [id number] IMPRESSION: Infiltration of the liver Status post cholecystectomy
--- NOTE | 2019-10-17 07:19 | NUR.SHIFT ---
SHIFT SUMMARY 10-16-19 PATIENT COMPLAINED OF ABDOMINAL PAIN MOST OF THE DAY. AT BEGINNING OF SHIFT, PATIENT HAD HEMATURIA. THE DAY WENT ON, PATIENT'S URINE BEGAN TO CLEAR UP WELL. URGENCY AND FREQUENCY IMPROVED. NAUSEA AT TIMES. ZOFRAN ADMINISTERED ONCE. PATIENT TOOK A SHOWER AND WAS UP IN THE ROOM THROUGHOUT THE DAY.
[2019-10-17] MEDS: buPROPion SR (12 HR) 100 mg Tablet 200 MG PO (08:35)
[2019-10-17] MEDS: ciprofloxacin 500 mg Tablet PO (08:35)
[2019-10-17] MEDS: thiamine 100 mg Tablet PO (08:35)
[2019-10-17] MEDS: sennosides-docusate Tablet 2 TAB PO (08:35)
[2019-10-17] MEDS: oxybutynin chloride XL 5 MG TABLET 10 MG PO (08:35)
[2019-10-17] MEDS: pantoprazole DR 40 mg Tablet PO (08:35)
[2019-10-17] MEDS: oxyCODONE-APAP 5-325 mg Tablet 1 TAB PO ×2 (08:35→14:28)
[2019-10-17] MEDS: multivitamin therapeutic Tablet 1 TAB PO (08:35)
[2019-10-17] MEDS: duloxetine 60 mg Capsule PO (08:35)
[2019-10-17] MEDS: folic acid 1 mg Tablet PO (08:36)
--- NOTE | 2019-10-17 12:20 | P.DS_ITS ---
Discharge Providers Date of Admission: 10/14/19 21:56 Date of Discharge: October 17, 2019 Attending Provider at Admission: Brain Lr MD Attending Provider at Discharge: Jarrett Landeros MD Consults: Urology: Dr. Lr Primary Care Provider: Thanh Meyer MD Diagnoses at Discharge Discharge Diagnosis (1) Obstructive pyelonephritis: Status: Acute (2) Ureterolithiasis: Status: Acute (3) Liver function abnormality: Status: Acute (4) Alcohol abuse: Status: Acute (5) Iron deficiency anemia: Status: Acute (6) Major depressive disorder, recurrent, mild: Status: Acute (7) Gram-negative bacteremia: Status: Acute Reason for Visit Reason for Visit: kidney stone Hospital Course Discharge Summary: Preeti Odom is a 59 year old female who carries history of iron deficiency anemia requiring multiple iron transfusions has a port A cath, currently under evaluation for nerve stimulator for her chronic back pain, attempts behavioral health clinic for her anxiety came in with chief complaint of left-sided flank pain. Patient is stating that she was in her usual state of health until yesterday when she started experiencing left-sided back pain which was radiating towards her flank, she knew this was because of kidney stone because of her previous experiences of recurrent stones, she waited until today to come to the hospital, overnight she has had multiple episodes of emesis, she has chills, nausea, vomiting, fever of 103 at home. Diagnostics in the ER revealed sepsis secondary to left-sided nephrolithias with hydronephrosis. Blood work done in the ER showed leukocytosis, mild lactic acidosis. Patient was admitted to the hospital and urology was consulted. Patient underwent cystoscopy and stent placement to the left ureter on October 14, 2019. She tolerated the procedure well. Her urine cultures and the blood culture from admission grew gram-negative bacteria. Urine culture were finally speciated for Klebsiella which was sensitive to ceftriaxone. Patient was continued on ceftriaxone but while being on that she continued to have worsening liver function. Liver ultrasound was done which was negative for acute pathology but concerning only for fatty infiltration. Hepatitis panel was negative. Her liver functions derangement was most likely because of beta- lactam's. EKG was done to check for QTC and she was changed over to ciprofloxacin as per the culture directions. While being on ciprofloxacin her liver function started improving. Patient has remained afebrile, blood cultures repeated from October 14 have remained negative at 48 hours preliminary. Patient is been discharged hemodynamic stable condition with advised to continue ciprofloxacin for next 12 days to finish a 14-day course after last positive blood cultures. She is advised to follow-up with Dr. Lr in 1 to 3 days for further treatment and possible ESWL for urolithiasis. Patient is advised and counseled regarding not consuming alcohol while being on antibiotics. Patient also advised to follow-up with her primary care provider in next 4 to 7 days to follow-up for CMP. Physical Exam Narrative: EXAM NARRATIVE: General: No acute distress, AO x3, pallor present HEENT: PERRLA, pupils bilaterally equal and reactive Chest: Normal vesicular breath sounds, no added sounds, equal good air entry bilaterally CVS: S1-S2 regular, no murmurs, no tachycardia, no gallops, no rubs Abdomen: Soft, nontender, no organomegaly, bowel sounds present, no renal angle tenderness, mild tenderness in supra pubic area Neuro: No focal deficits, no facial deformity, AO x3, power 5/5 in all limbs Urinary Catheter Management^: Pope Latex: Cath Placed During This Visit: yes Urinary Catheter Date of Insertion: 10/14/19 Urinary Catheter Time of Insertion: 21:15 Discharge Data Data Completed and Pending: Completed Studies During Hospitalization Category Date Time Status CT kidney stone [id number] Urgent Cat Scan 10/14/19 17:54 Completed US liver [id number] Ro utine Ultrasound 10/17/19 07:00 Completed Pending at discharge Category Date Time Status Blood Culture Sta t Lab 10/14/19 17:52 Results Blood Culture Sta t Lab 10/15/19 17:20 Results Labs from last 24 hours 10/17/19 10/17/19 10/16/19 02:12 02:12 17:50 WBC 4.2 RBC 2.98 L Hgb 8.7 L Hct 27.5 L MCV 92.3 MCH 29.2 MCHC 31.6 RDW 13.2 Plt Count 195 MPV 9.4 Neut % (Auto) 71.7 Lymph % (Auto) 11.1 [place] % (Auto) 13.5 Eos % (Auto) 2.2 Baso % (Auto) 0.5 Neut # (Auto) 3.0 Lymph # (Auto) 0.5 L [place] # (Auto) 0.6 Eos # (Auto) 0.1 Baso # (Auto) 0.0 Nucleated RBC % (a uto) 0 Nucleated RBCs # 0.0 Sodium 137 136 Potassium 3.9 4.1 Chloride 107 105 Carbon Dioxide 22 20 L Anion Gap 11.9 15.1 BUN 3 L 4 L Creatinine 0.7 0.5 GFR Calculation 85.9 L 126.7 Glucose 109 113 Calculated Osmolal ity 280 L 278 L Calcium 8.8 8.4 L Total Bilirubin 0.2 0.2 AST 106 H 168 H ALT 180 H 217 H Alkaline Phosphata se 205 H 217 H Total Protein 5.2 L 5.6 L Albumin 3.1 L 3.1 L Globulin 2.1 2.5 Hepatitis A IgM Ab Hep Bs Antigen Hep Bs Antibody Hep B Core Total A b Hepatitis C Antibo dy 10/16/19 04:30 WBC RBC Hgb Hct MCV MCH MCHC RDW Plt Count MPV Neut % (Auto) Lymph % (Auto) [place] % (Auto) Eos % (Auto) Baso % (Auto) Neut # (Auto) Lymph # (Auto) [place] # (Auto) Eos # (Auto) Baso # (Auto) Nucleated RBC % (a uto) Nucleated RBCs # Sodium Potassium Chloride Carbon Dioxide Anion Gap BUN Creatinine GFR Calculation Glucose Calculated Osmolal ity Calcium Total Bilirubin AST ALT Alkaline Phosphata se Total Protein Albumin Globulin Hepatitis A IgM Ab Non-reactive Hep Bs Antigen Non-reactive Hep Bs Antibody 3.5 Hep B Core Total A b Non-reactive Hepatitis C Antibo dy Non-reactive Vitals: Last Vital Signs Temp 98.5 F 10/17/19 11:27 Pulse 96 10/17/19 11:27 Resp 18 10/17/19 11:27 BP 127/79 10/17/19 11:27 Pulse Ox 97 10/17/19 11:27 Discharge Plan Discharge Patient Disposition: Home, Self-Care Condition: Stable Prescriptions: New oxybutynin chloride 5 mg Tablet Extended Release 24hr 10 mg PO DAILY Qty: 30 RF: 0 ciprofloxacin HCl 500 mg Tablet 500 mg PO BID 12 Days Qty: 25 RF: 0 folic acid 1 mg Tablet 1 mg PO BID Qty: 30 RF: 0 Thera 400 mcg Tablet 1 tab PO DAILY Qty: 30 RF: 0 Continued duloxetine [Cymbalta] 60 mg capsule,delayed release(DR/EC) 60 mg PO DAILY RF: 0 montelukast [Singulair] 10 mg tablet 10 mg PO DAILY RF: 0 omeprazole 40 mg capsule,delayed release(DR/EC) 40 mg PO DAILY RF: 0 celecoxib [Celebrex] 200 mg capsule 400 mg PO DAILY RF: 0 oxycodone 5 mg tablet 5 mg PO Q6H PRN (Reason: Pain (Scale Score 4-6)) RF: 0 diphenhydramine HCl [Benadryl] 25 mg capsule 25 mg PO TID PRN (Reason: Pain) RF: 0 bupropion HCl [Wellbutrin SR] 200 mg tablet sustained-release 12 hr 200 mg PO BID Qty: 60 RF: 2 amitriptyline 50 mg tablet 50 mg PO .HS Qty: 30 RF: 2 Hysingla ER 20 mg Tablet,Oral Only,Ext.Rel.24 Hr 20 mg PO DAILY RF: 0 tizanidine 4 mg Tablet 4 mg PO Q8H PRN (Reason: Muscle Spasm) RF: 0 Discharge Orders: Discharge Order (Routine); Ordered 10/17/19 Ordered By: Jarrett Landeros Referrals: Thanh Meyer MD [Primary Care Provider] - 4-7 days Brain Lr MD [Physician] - 10/19/19 Discharge Diet: Cardiac Discharge Activity: Resume usual activity Activity Restrictions/Additional Instructions: Continue taking ciprofloxacin 500 mg twice daily for next 12 days to finish a 14-day course. Please follow-up with Dr. Lr on Tuesday for further treatment and work-up. Please follow-up with your primary care provider within next 4 to 7 days to repeat a CMP. Please try to avoid drinking alcohol while being on antibiotics. Discharge Attestations Time Spent in Discharge Care*: greater than 30 min Specific Discharge Activities: Specific discharge activities: educating patient, discussing with counter caser/social workers/dc planners, documenting/other paperwork and evaluating patient/reviewing data Status at Discharge: Cognitive status at discharge: cognitively intact , Behavioral status at discharge: cooperative , Functional status at discharge: independent ambulation Overall status at discharge: patient is back to baseline Quality Metrics Clinical Quality Measures During this hospital stay, did patient experience: None Coding Level of Care Code Acute Cutting Machine Operator for [facility] Fwd Diagnoses Obstructive pyelonephritis N11.1 Ureterolithiasis N20.1 Liver function abnormality R94.5 Alcohol abuse F10.10 Iron deficiency anemia D50.9 Major depressive disorder, recurrent, mild F33.0 Gram-negative bacteremia R78.81
== END 2019-10-17 14:59 | disposition home or self-care (01) | DRG 853 ==
LOC: ER 20:06 → OPS 20:26 → MEDSURG 10-15 07:12
PROVIDERS: Family Medicine; Internal Medicine; Admitting Provider Urology; PCP Family Medicine; Visit Provider Student in an Organized Health Care Education/Training Program
PROC: 0TJB8ZZ Inspection of Bladder, Via Natural or Artificial Opening Endoscopic (ICD-10-PCS; CPT 52000; principal; 2019-10-14 20:20)
PROC: 0T778DZ Dilation of Left Ureter with Intraluminal Device, Via Natural or Artificial Opening Endoscopic (ICD-10-PCS; CPT 50605; 2019-10-14 20:20)
DX: A41.9 Sepsis, unspecified organism (principal); K83.1 Obstruction of bile duct; F33.0 Major depressive disorder, recurrent, mild; N13.2 Hydronephrosis with renal and ureteral calculous obstruction; N30.01 Acute cystitis with hematuria; N10 Acute pyelonephritis; D50.9 Iron deficiency anemia, unspecified; G89.29 Other chronic pain; M54.9 Dorsalgia, unspecified; F41.9 Anxiety disorder, unspecified; M79.7 Fibromyalgia; M81.0 Age-related osteoporosis without current pathological fracture; Z87.11 Personal history of peptic ulcer disease; Z90.3 Acquired absence of stomach [part of]; Z87.891 Personal history of nicotine dependence; F45.9 Somatoform disorder, unspecified; F10.10 Alcohol abuse, uncomplicated; B96.1 Klebsiella pneumoniae [K. pneumoniae] as the cause of diseases classified elsewhere; Z79.891 Long term (current) use of opiate analgesic; K76.0 Fatty (change of) liver, not elsewhere classified; K21.9 Gastro-esophageal reflux disease without esophagitis
CPT/HCPCS: 12345; 36415; 36591; 74176; 76000; 76705; 80048; 80053; 81001; 83605; 85025; 86705; 86706; 86709; 86803; 87040; 87077; 87086; 87186; 87205; 87340; 93005; 96372; 96375; 99283; C2625; J0330; J0696; J1650; J1885; J2001; J2270; J2405; J2543; J2704; J3010; J3411; J3480; J3490; J7030

== ENCOUNTER 2019-10-14 16:40 | Emergency (ER) | payer MEDICAID, SELFPAY | END 2019-10-14 20:39 | disposition admitted as inpatient to this hospital (09) | LOC: ER 10-15 13:32 | PROVIDERS: Emergency Provider Emergency Medicine; PCP Family Medicine | DX: N30.01 Acute cystitis with hematuria (principal); N20.1 Calculus of ureter; Z87.891 Personal history of nicotine dependence | CPT/HCPCS: 12345; 74176; 76000; 81001; 83605; 85025; 87040; 87077; 87086; 87186; 87205; 96365; 96366; 96367; 96375; 99283; 99285; C2625; J0330; J1885; J2001; J2270; J2405; J2543; J2704; J3010; J3480; J7030 ==

== ENCOUNTER 2019-10-19 09:20 | Outpatient (CLI) | payer MEDICAID, SELFPAY ==
--- NOTE | 2019-10-19 09:00 | XR_ITS ---
WS: [id number] XR KUB [id number] REASON FOR EXAM: stones FINDINGS: A stent is seen extending from the left kidney the bladder. There is considerable fecal residue overriding the kidneys the previously described stone in the left kidney is not well seen on today's exam in the kidney but appears to be adjacent to the L3 vertebra in the ureter. XR/XR KUB [id number] IMPRESSION: Stone previously described is in the stent region of the L3 vertebra on the lef t side.
== END 2019-10-19 09:21 | disposition home or self-care (01) ==
LOC: RAD 09:24
PROVIDERS: PCP Family Medicine; Visit Provider Urology
DX: N20.1 Calculus of ureter (principal)
CPT/HCPCS: 74018; 81001

== ENCOUNTER 2019-10-25 13:34 | Outpatient (CLI) | payer MEDICAID, SELFPAY ==
[2019-10-25 14:35] LABS: Basophils % 0.3 %; Eosinophils # 0.2 10^3/uL (0.0-0.8); Eosinophils % 1.9 %; Hematocrit 30.1 % (37.0-47.0); Hemoglobin 9.3 g/dL (11.5-15.3); Lymphocytes # 1.2 10^3/uL (0.8-4.8); Lymphocytes % 11.5 %; Mean Corpuscular HGB Conc 30.9 g/dL (30.0-36.0); Mean Corpuscular Hemoglobin 28.9 pg (28.0-34.0); Mean Corpuscular Volume 93.5 fL (81-99); Mean Platelet Volume 9.1 fL (7.4-10.4); Monocytes # 0.8 10^3/uL (0.2-0.9); Monocytes % 7.5 %; Neutrophils # 7.9 10^3/uL (1.8-7.7); Neutrophils % 76.7 %; Nucleated Red Blood Cells % 0 %; Platelet Count 517 10^3/cmm (130-400); Red Blood Count 3.22 10^6/uL (4.1-5.3); Red Cell Distribution Width 12.7 % (12.1-15.1); White Blood Count 10.2 10^3/uL (4.0-10.0)
[2019-10-25 15:33] LABS: Alanine Aminotransferase 21 U/L (0-33); Albumin Level 3.7 g/dL (3.5-5.2); Alkaline Phosphatase 132 IU/L (35-105); Aspartate Amino Transferase 16 U/L (0-32); Blood Urea Nitrogen 11 mg/dL (6-20); Carbon Dioxide 26 mmol/L (22-29); Chloride 98 mmol/L (98-107); Globulin 2.6 g/dL (1.3-4.6); Glomerular Filtration Rate 64.3 mL/min (90-130); Glucose 111 mg/dL (65-115); Iron 37 ug/dL (37-145); Osmolality Calculated 283 mOsm/kg (285-295); Sodium 138 mmol/L (136-145); Total Bilirubin 0.2 mg/dL (0.15-1.2); Total Iron Binding Capacity 264 mcg/dl; Total Protein 6.3 g/dL (6.6-8.7); Unsaturated Iron Binding 227 ug/dL (112-347)
== END 2019-10-25 13:35 | disposition home or self-care (01) ==
LOC: ONCMED 13:37
PROVIDERS: PCP Family Medicine; Visit Provider Internal Medicine Medical Oncology
DX: D64.9 Anemia, unspecified (principal)
CPT/HCPCS: 36591; 80053; 83540; 83550; 85025

== ENCOUNTER 2019-10-29 10:19 | Day surgery (SDC) | payer MEDICAID, SELFPAY ==
--- NOTE | 2019-10-29 10:25 | XR_ITS ---
WS: [id number] ABDOMEN KUB CLINICAL INFORMATION: Renal/ureteral calculi. COMPARISON: October 19, 2019 FINDINGS: Left double-J ureteral stent. Surgical clips in the upper abdomen. Cholecystectomy clips. Stable calculus along the ureteral stent at the L3 level measuring 4 mm. XR/XR KUB [id number] Impression: 1. Left double-J ureteral stent with 4 mm calculus along the stent L3 level.
[2019-10-29 10:51] VITALS: BMI 21.7
[2019-10-29 10:53] VITALS: BP 121/68; PULSE 67; RESP 16; TEMP 36.4; O2SAT 98
[2019-10-29] MEDS: sodium chloride 0.9% 1,000 ML 30 ML IV (11:11)
--- NOTE | 2019-10-29 11:26 | ANES.PREANE2 ---
Pre-Anesthetic Assessment Pre-Anesthetic Assessment: Height/Weight: Height 1.52 m Weight 50.349 kg Temp Pulse Resp BP Pulse Ox 97.5 F L 67 16 121/68 98 10/29/19 10:53 10/29/19 10:53 10/29/19 10:53 10/29/19 10:53 10/29/19 10:53 Preop Diagnosis: Left ureteral/renal calculi Proposed Procedure: Operation Date: 10/29/19 12:00 Proposed Procedures p ESWL 97099 M20.0 N11.1(Not Applicable) - Brain Lr MD s Poss Left Flexible Ureteroscopy(Left) - MD jody Jean Laser Lithotripsy(Not Applicable) - MD jody Jean Ureteral Stent Placement(Not Applicable) - Brain Lr MD Familial anesthetic complications: none Was Beta Ольга taken within 24 hours: N/A Last intake: Intake Last Liquid Date 10/28/19 Last Liquid Time 20:00 Last Solid Date 10/28/19 Last Solid Time 19:00 Social: Social History: No alcohol and No tobacco Exam: Pre-Anes Outpt Exam: alert, oriented x 3, clear to auscultation bilaterally and regular rate & rhythm Airway: Cervical ROM: WNL MP: 2 Dentition: False Pulmonary: Pulmonary: None reported CV/HEM: CV/HEM: HTN : : None reported Hepatic: Hepatic: None reported GI: GI: GERD Musc/skel: Musc/skel: Lower Back Pain Neuropsych: Neuropsych: None reported Anesthetic Plan: ASA status: 2 Anesthesia: General Risk of > 500 ml blood loss (7ml/kg in children): No Meds/Allergies Current Medications: Current Medications Generic Name Dose Route Start Last Admin Trade Name Freq PRN Reason Stop Dose Admin Sodium Chloride 1,000 mls @ 30 ml s/hr 10/29/19 10:30 10/29/19 11:11 Sodium Chloride 0.9% IV 10/30/19 10:29 30 mls/hr .Q24H GREG Administration PFSH Anesthesia PFSH: Medical History (Updated 10/19/19 @ 10:55 by Brain Lr MD) Chronic back pain Depression Disappearance and of family member Fibromyalgia Iron deficiency anemia Major depressive disorder, recurrent, mild Mild anemia Osteoporosis Peptic ulcer disease Port-A-Cath in place Undifferentiated somatoform disorder Surgical History H/O bilateral oophorectomy H/O colonoscopy H/O: hysterectomy For fibroid and endometriosis History of bone marrow biopsy History of partial gastrectomy Secondary to peptic ulcer disease, perforated ulcer Hx of endoscopy Family History Other Hypertension Psychiatric illness Social History Smoking and tobacco status: former smoker Alcohol intake: never Adopted: No Caregiver/support person: No Housing: House Marital status: Current occupational status: disabled History of recent travel: No Data Anesthesia Cardiac Studies: No Data to Display
--- NOTE | 2019-10-29 12:25 | W.PM.OPSUD ---
Surgery/Procedure H&P Update DATE OF PROCEDURE: October 29, 2019 DATE H&P PERFORMED: 10/19/19 H&P UPDATE INFORMATION: I have reviewed H&P completed within last 30 days, I have examined patient prior to procedure, Changes to prior documentation as noted here and H&P is in [facility] E[facility] on date indicated CHANGES TO PREVIOUS DOCUMENTATION: She had originally been scheduled for last week but due to severe constipation was postponed until now. Has effectively treated the constipation at home. No other changes. PREOP DIAGNOSIS: Left ureteral/renal calculi PLANNED PROCEDURE: Operation Date: 10/29/19 12:00 Proposed Procedures p ESWL 88388 M20.0 N11.1(Not Applicable) - Brain Lr MD s Poss Left Flexible Ureteroscopy(Left) - MD jody Jean Laser Lithotripsy(Not Applicable) - MD jody Jean Ureteral Stent Placement(Not Applicable) - Brain Lr MD
[2019-10-29] MEDS: levofloxacin-dextrose 5 % 500 MG/100 ML PREMIX 100 MG IV (12:30)
--- NOTE | 2019-10-29 13:29 | P.OP_ITS ---
Operative Report Date of procedure: October 29, 2019 Pre-op Diagnosis: Left ureteral/renal calculi Post-op diagnosis: same Procedure Done: 1. Extracorporeal shockwave lithotripsy to left mid ureteral stones 2. Extracorporeal shockwave lithotripsy to left renal calculi Specimens removed/disposition: None Pathology: none sent Surgeon: Be Location And Measurement Technician: Lithotripsy Veneer Slicing Machine Operator: Jim Ibanez Anesthesia: General Estimated blood loss: None Urine output: Not measured Complications: None Findings: 2 stones in the left mid to proximal ureter treated with a total of about 2300 shocks with good change. Stones in the left mid kidney also treated with a total of about 500 shocks with good change Stent left indwelling and not changed Condition: stable Disposition: PACU Brief History: Ms. Odom is a very pleasant 59-year-old white female who was recently treated with emergency stenting of the left kidney for obstructive pyelonephritis. She was aggressively managed with antibiotics afterwards and recovered well and is back now for ESWL to the 2 stones in her left ureter and a couple stones in her left kidney. Procedure: After routine preoperative evaluation examination and obtaining of informed consent she was taken to the operating suite where general anesthesia was administered without difficulty after appropriate timeout was performed, SCDs confirmed to be functioning, preoperative antibiotics administered, beta- ayaka protocol confirmed. Positioned on the Dornier unit in supine position such that the ureteral stones were focused upon first. The larger of the 2 stones that was located more distally was treated first. It was treated with approximately 1200 shocks with good change. The focal point was then moved to the stone fragment just proximal to the first 1 treated and it was treated with about 1600 shocks with good changes well. The focal point was then changed to the left renal calculi and it was treated with about 500 shocks with good change as well. The final series of shocks were administered again to the initial stone treated with even more notable break up Tolerated procedure well without complications and was awakened in the operating room and returned to the Room in stable condition. PLANS: 1. Discharge from outpatient surgery after appropriate recovery 2. Follow-up next week with a KUB and likely cystoscopy with stent removal. 3. Continue antibiotics
[2019-10-29 13:35] VITALS: BP 114/67; PULSE 89; RESP 18; TEMP 36.4; O2SAT 100
[2019-10-29 13:40] VITALS: BP 113/72; PULSE 81; RESP 14; O2SAT 100
[2019-10-29 13:45] VITALS: BP 106/65; PULSE 78; RESP 12; TEMP 36.4; O2SAT 100
[2019-10-29 13:48] VITALS: BP 104/58; PULSE 88; RESP 18; TEMP 36.4; O2SAT 98
[2019-10-29 14:04] VITALS: BP 116/77; PULSE 71; RESP 18; O2SAT 98
== END 2019-10-29 14:35 | disposition home or self-care (01) ==
PROVIDERS: PCP Family Medicine; Visit Provider Urology
PROC: (CPT 50590; principal; 2019-10-29 12:00)
DX: N20.2 Calculus of kidney with calculus of ureter (principal); Z87.891 Personal history of nicotine dependence; K21.9 Gastro-esophageal reflux disease without esophagitis; F33.9 Major depressive disorder, recurrent, unspecified; M81.0 Age-related osteoporosis without current pathological fracture; Z87.11 Personal history of peptic ulcer disease
CPT/HCPCS: 50590; 12345; 74018; J1956; J2704; J2710; J3010; J3490; J7030; T1015-U1

== ENCOUNTER 2019-10-31 13:06 | Outpatient (CLI) | payer MEDICAID, SELFPAY ==
[2019-10-31] MEDS: sodium chloride 0.9% 250 ML IV (13:31)
[2019-10-31] MEDS: ferric carboxy (IVPB) 750 MG in sodium chloride 0.9% (100 ml) 100 ML 345 MG IV (13:48)
== END 2019-10-31 13:07 | disposition home or self-care (01) ==
LOC: ONCMED 13:09
PROVIDERS: PCP Family Medicine; Visit Provider Nurse Practitioner
DX: D50.9 Iron deficiency anemia, unspecified (principal); F41.9 Anxiety disorder, unspecified; F32.9 Major depressive disorder, single episode, unspecified; M79.7 Fibromyalgia; K21.9 Gastro-esophageal reflux disease without esophagitis
CPT/HCPCS: 96365; 96367; J1200; J1439; J7050

== ENCOUNTER 2019-11-07 09:00 | Outpatient (CLI) | payer MEDICAID, SELFPAY ==
--- NOTE | 2019-11-07 07:15 | XRR_ITS ---
PROCEDURE INFORMATION: Exam: XR Abdomen, 1 View Exam date and time: 11/07/2019 9:04 AM Age: 59 years old Clinical indication: Condition or disease; Other: Stones; Prior surgery; Surgery type: Renal stent TECHNIQUE: Imaging protocol: XR of the abdomen. Views: Frontal supine view of the abdomen. 1 View. COMPARISON: VT XR KUB [id number] 10/29/2019 10:36 AM FINDINGS: Gastrointestinal tract: The bowel gas pattern is nonspecific. Air filled large bowel including distal rectal gas. Organs: Double-J ureteric stent on the left with the proximal pigtail formed within the renal pelvis and the distal pigtail within the urinary bladder. Bones/joints: Operative changes in the mid epigastrium Previously visualized calculus adjacent to the transverse process of L3 on the left no longer visualized. XR/XR KUB [id number] IMPRESSION: 1. The bowel gas pattern is nonspecific. Air filled large bowel including distal rectal gas. 2. Previously visualized calculus adjacent to the transverse process of L3 on the left no longer visualized.
== END 2019-11-07 09:01 | disposition home or self-care (01) ==
PROVIDERS: PCP Family Medicine; Visit Provider Urology
DX: N20.0 Calculus of kidney (principal)
CPT/HCPCS: 74018

== ENCOUNTER 2019-11-08 13:17 | Outpatient (CLI) | payer MEDICAID, SELFPAY ==
[2019-11-08] MEDS: ferric carboxy (IVPB) 750 MG in sodium chloride 0.9% (100 ml) 100 ML 460 MG IV (14:05)
== END 2019-11-08 13:18 | disposition home or self-care (01) ==
LOC: ONCMED 13:20
PROVIDERS: PCP Family Medicine; Visit Provider Nurse Practitioner
DX: D50.9 Iron deficiency anemia, unspecified (principal); F41.9 Anxiety disorder, unspecified; F32.9 Major depressive disorder, single episode, unspecified; M79.7 Fibromyalgia; K21.9 Gastro-esophageal reflux disease without esophagitis
CPT/HCPCS: 96365; 96367; J1100; J1200; J1439; J2405

== ENCOUNTER 2019-12-31 12:25 | Outpatient (CLI) | payer MEDICAID, SELFPAY ==
[2019-12-31 13:23] LABS: Basophils % 0.5 %; Eosinophils # 0.1 10^3/uL (0.0-0.8); Eosinophils % 1.7 %; Hematocrit 36.4 % (37.0-47.0); Hemoglobin 11.8 g/dL (11.5-15.3); Lymphocytes # 1.1 10^3/uL (0.8-4.8); Lymphocytes % 17.3 %; Mean Corpuscular HGB Conc 32.4 g/dL (30.0-36.0); Mean Corpuscular Volume 92.6 fL (81-99); Mean Platelet Volume 9.1 fL (7.4-10.4); Monocytes # 0.4 10^3/uL (0.2-0.9); Monocytes % 6.7 %; Neutrophils # 4.82 10^3/uL (1.8-7.7); Neutrophils % 73.2 %; Nucleated Red Blood Cells % 0 %; Platelet Count 320 10^3/cmm (130-400); Red Blood Count 3.93 10^6/uL (4.1-5.3); Red Cell Distribution Width 13.8 % (12.1-15.1); White Blood Count 6.6 10^3/uL (4.0-10.0)
[2019-12-31 13:44] LABS: Alanine Aminotransferase 15 U/L (0-33); Albumin Level 4.4 g/dL (3.5-5.2); Alkaline Phosphatase 84 IU/L (35-105); Anion Gap 17.2 (5-19); Aspartate Amino Transferase 17 U/L (0-32); Blood Urea Nitrogen 12 mg/dL (6-20); Calcium 8.7 mg/dL (8.5-10.5); Carbon Dioxide 21 mmol/L (22-29); Chloride 101 mmol/L (98-107); Ferritin 584 ng/mL (15-150); Globulin 2.2 g/dL (1.3-4.6); Glomerular Filtration Rate 102.7 mL/min (90-130); Glucose 110 mg/dL (65-115); Iron 104 ug/dL (37-145); Osmolality Calculated 277 mOsm/kg (285-295); Percent Saturation 39.3 % (20-50); Potassium 4.2 mmol/L (3.5-5.1); Sodium 135 mmol/L (136-145); Total Bilirubin 0.2 mg/dL (0.15-1.2); Total Iron Binding Capacity 264 mcg/dl; Total Protein 6.6 g/dL (6.6-8.7); Unsaturated Iron Binding 160 ug/dL (112-347)
[2019-12-31] MEDS: sodium chloride 0.9% 500 ML 999 ML IV (14:52)
[2019-12-31] MEDS: ondansetron 2 mg/ML SDV 2 mL 4 MG IV (14:52)
[2019-12-31] MEDS: ketorolac 30 mg/mL INJ 15 MG IVP (14:55)
[2019-12-31 15:01] LABS: Thyroid Stimulating Hormone 1.45 uIU/mL (0.27-4.20)
--- NOTE | 2019-12-31 18:23 | ONC FU_ITS ---
Dr. Medina Patient Follow-Up Note Patient: Preeti Odom Unit #: [id number]: [id number] Dicatated By: Lauri Medina M.D.Date of Visit:Dec 31, 2019 Onc Med Follow-up/Prog Note Chief Complaint: Anemia. History of Present Illness: This is a 59 year-old woman with a mild chronic anemia. She had chronic iron deficiency anemia for 13 years prior to presentation, requiring Port-A-Cath placement and frequent IV iron administration. She underwent a total abdominal hysterectomy for fibroid uterus and endometriosis in 1994, followed by bilateral oophorectomies in 1996. She had a history of perforated bleeding peptic ulcer disease, requiring extensive surgery with en-block resection, partial gastrectomy, small bowel resection, and colectomy in [address] In 2012 she had an acute on chronic anemia, for which she received a course of IV iron over about one year. She reported having endoscopy, colonoscopy, bone marrow biopsy performed at the [address] Those records were not available. Laboratory analysis in on 11/21/2014 showed normal CBC analysis, MCV 88, iron panel unremarkable. She had then relocated to [facility]. She was first seen by Dr. Fonseca on 05/16/2015. Iron deficiency was confirmed, hemoglobin 10.8 g/dL. Hemoccult positive. She was given parenteral iron replacement with a single infusion of Injectafer, completed on 06/12/2015. She was seen for a follow-up visit on 07/19/2016. She was still mildly anemic. Her further laboratory studies on 08/31/2016 showed hemoglobin just borderline low at 12.4 g. Her serum iron studies, though, did show low transferrin saturation at 12%, consistent with iron deficiency. She was having significant fatigue, and at that point I did opt to give her another infusion of Injectafer, which she completed on 09/03/2016. I had seen her for a followup visit in January 2017. At that time she was still mildly anemic, but her transferrin saturation and ferritin level were normal, and I opted to just continue observation/expectant management. Her other medical illnesses include GERD/peptic ulcer disease, fibromyalgia, degenerative arthritis, osteoporosis, and depression. She has chronic back pain, and she has chronic headaches. She had smoked in the past, but she quit smoking 17 years ago. INTERIM HISTORY: As of August 2017 her studies were again consistent with iron deficiency, transferrin saturation 17% and ferritin level 26 ng/mL. She was given a single infusion of Injectafer. Her repeat CBC in January 2019 showed hemoglobin adequate at 12.4 g with transferrin saturation 29% and ferritin level 54 ng/mL. At her followup visit in June 2018 her hemoglobin had declined just slightly, but her transferrin saturation and ferritin were consistent with iron deficiency, and she was given an additional infusion of Injectafer. Her repeat laboratory studies on 10/10/2018 again showed adequate hemoglobin at 12.0 g with slightly low transferrin saturation and normal ferritin. She was found to have low potassium at 2.9 mmol/L, and she then began on an oral potassium supplement. As of her follow-up been November 2018 her hemoglobin was stable at 11.9 g with transferrin saturation slightly low at 17.1% but with ferritin normal at 141 ng/mL. On 10/14/2019 she was admitted to the hospital with left obstructive pyelonephritis. She underwent cystoscopy with left ureteral stent placement for a large left mid ureteral stone. The stent was later removed. As of 10/25/2019 her hemoglobin had declined to 9.3 g with hematocrit 30.1%. Her transferrin saturation was low at 14%, consistent with iron deficiency. She was then given parenteral iron replacement with 2 infusions of Injectafer, which she tolerated well. She is seen for a followup visit. She has been feeling good generally following the parenteral iron last month. However, over the past 2 days she has started having back pain again. She also is having some associated nausea, and she thinks she may have another kidney stone. She is otherwise had good energy and activity tolerance. ECOG score is 0. She has had good appetite. She has not had fever or night sweats, but recently she has had a couple of hot flashes. She also complains that her hair has been falling out a lot. She has no shortness of breath, cough, or chest pain. She has no other GI complaints, and she currently is having no bladder symptoms. She has additional pain associated with fibromyalgia and degenerative arthritis. She has headaches at least 2 or 3 times a week. She has no focal neurologic symptoms. Medications: Amitriptyline HCl 1 (25 mg) Tablet Oral at bedtime, BuPROPion HCl 1 Tablet (of 150 mg) Oral b.i.d., CeleBREX 1 Capsule Oral b.i.d., Cyclobenzaprine HCl 1 (5 mg) Tablet Oral b.i.d. PRN, Excedrin Migraine Tablet Oral PRN, Glucosamine Chondr Complex Capsule Oral b.i.d., PriLOSEC (20 ) Capsule Delayed Release Oral daily, Senna S 1 (8.6-50 mg) Tablet Oral b.i.d. Allergies: No Known Allergies. Review of Systems: Constitutional - She has been feeling good. Her energy is good. She has normal activity without restrictions. Her appetite is good and her weight is down 9 pounds from last visit. No fever or night sweats. She has had some mild hot flashes the last couple days. ECOG score is 0, ENMT - No sinus congestion/drainage. No mouth sores. No sore throat or difficulty swallowing, Hematologic/Lymphatic - She has bruising to her chin from a fall, Respiratory - No shortness of breath. No cough. No pleuritic pain or hemoptysis, Cardiovascular - No angina pain. No palpitations, Gastrointestinal - She has nausea. No vomiting. No heartburn or acid reflux. No diarrhea or constipation. No blood in the stool or black stools, Genitourinary (F) - No dysuria or hematuria. No urinary frequency. No urgency or incontinence. She has a h/o kidney stones and she c/o of flank pain today, believes she may have another kidney stone, Musculoskeletal - She also has fibromyalgia pain and arthritis pain, Integumentary - No skin complications, Neurologic - She has been having headaches. No dizziness. No numbness or tingling. No other focal neurologic symptoms, Psychiatric - No anxiety or depression, but she has been under more stress lately and she has been having problems sleeping. Vital Signs: Performed on Dec 31, 2019 14:09 Height - 60.00 in Weight - 116.6 lbs (LOW) BSA - 1.48 sq.m BMI - 22.77 Temperature - 97.7 F (LOW) Pulse - 89 /min Respiration - 22 /min BP - 132/63 mm(hg) O2 Sat - 100 % Pain - 9 Physical Examination: Constitutional - She looks good generally, Eyes - Sclerae nonicteric. Conjunctivae clear, ENMT - There are no lesions noted in the oral cavity, Hematologic/Lymphatic - No cervical, clavicular, or axillary adenopathy, Respiratory - Lungs are clear with good air movement bilaterally, Cardiovascular - Heart rhythm is regular. There is no murmur, gallop, or rub noted, Abdomen - Soft. Liver and spleen are not enlarged. There is no abdominal mass or ascites noted and there is no inguinal adenopathy, Back/Spine - Her pain localizes to the lower back, but she does not have bony tenderness in the spine. There is no CVA tenderness, Extremities - No edema, Neurologic - No focal neurologic deficits noted. Lab/Imaging: Test performed on Dec 31, 2019 13:19 TSH 1.45 uIU/mL Test performed on Dec 31, 2019 12:51 Ferritin 584 ng/mL Iron 104 mcg/dL Sodium 135 mmol/L Iron Binding Capacity (TIBC) 264 mcg/dl Potassium 4.2 mmol/L % Iron Saturation 39.3 % Chloride 101 mmol/L CO2 21 mmol/L UIBC 160 mcg/dL Anion Gap 17.2 BUN 12 mg/dL Creatinine 0.6 mg/dL Cr Clearance (Est) 85.33 mL/min eGFR 102.7 mL/min Glucose 110 mg/dL Calcium 8.7 mg/dL Protein, Total 6.6 g/dL Albumin 4.4 g/dL Globulin 2.2 g/dL Bilirubin, Total 0.2 mg/dL ALT (SGPT) 15 U/L AST (SGOT) 17 U/L Alkaline Phosphatase 84 IU/L WBC 6.6 10 3/uL RBC 3.93 10 6/uL HGB 11.8 g/dL HCT 36.4 % MCV 92.6 fL MCH 30.0 pg MCHC 32.4 g/dL RDW 13.8 % Platelet Count 320 10 3/cmm MPV 9.1 fL Neutrophils 4.82 10 3/uL Lymphocytes 1.1 10 3/uL Monocytes 0.4 10 3/uL Eosinophils 0.1 10 3/uL Basophils 0.0 10 3/uL Neutrophil % 73.2 % Lymphocyte % 17.3 % Monocyte % 6.7 % Eosinophil % 1.7 % Basophils % 0.5 % NRBC % 0 % Impression: 1. Patient with chronic anemia. She has had recurrent episodes of iron deficiency. This is likely due to combination of GI blood loss and inadequate oral iron absorption. She has responded adequately to parenteral iron replacement. 2. She has an extensive history of gastrointestinal disease, including GERD and history of perforated ulcer. Her prior surgeries include partial gastrectomy and partial small bowel resection with Billroth I anastomosis and partial colectomy in 2010. Her other medical illnesses include: 3. Fibromyalgia. 4. Degenerative arthritis. 5. Osteoporosis. 6. She has chronic back pain and chronic headache. 7. Anxiety/depression. She was given further parenteral iron replacement in August 2016 as her laboratory studies at that time were indicative of iron deficiency, though she was only borderline anemic. As of her followup visit in January 2017 she was still mildly anemic but with normal transferrin saturation and normal ferritin. In August 2017 she did require another single infusion of Injectafer. As of January 2018, her hemoglobin was adequate at 12.4 g with transferrin saturation 29% and ferritin 54 ng/mL. As of her follow-up visit in June 2018 her transferrin saturation and ferritin levels were again consistent with iron deficiency, and she did receive an additional infusion of Injectafer. Her follow-up laboratory studies on 10/10/2018 showed significant hypokalemia with her potassium level at 2.9 mmol/L. She subsequently felt better on oral potassium supplementation. She then continued to have a mild anemia, but without evidence of iron deficiency. In October 2019 she was admitted to the hospital with left obstructive pyelonephritis. She required cystoscopy with left ureteral stent placement for an obstructing left ureteral stone. Subsequent to that hospitalization, her hemoglobin had dropped to 9.3 g and her transferrin saturation was low at 14%, consistent with iron deficiency. She was given parenteral iron replacement with 2 infusions of Injectafer, which he tolerated well. She has had a very good clinical response. However, she has had recurrence of back pain and nausea, and she thinks she may have another kidney stone. Plan: She remains on observation/expectant management for the anemia. She will be given IV fluids and a single dose of IV Toradol here in the office along with IV ondansetron. I will order a repeat KUB. She will have further evaluation as indicated. Signed By: Lauri Medina M.D. <<Signature on File>>
== END 2019-12-31 12:26 | disposition home or self-care (01) ==
LOC: ONCMED 12:27
PROVIDERS: PCP Family Medicine; Visit Provider Internal Medicine Medical Oncology
DX: D50.9 Iron deficiency anemia, unspecified (principal); F41.9 Anxiety disorder, unspecified; F32.9 Major depressive disorder, single episode, unspecified; M79.7 Fibromyalgia; K21.9 Gastro-esophageal reflux disease without esophagitis
CPT/HCPCS: 36591; 80053; 82728; 83540; 83550; 84443; 85025; 96361; 96374; 96376; 99214; J1885; J2405; J7040

== ENCOUNTER 2020-01-01 14:01 | Outpatient (CLI) | payer MEDICAID, SELFPAY ==
--- NOTE | 2020-01-01 14:11 | XRR_ITS ---
PROCEDURE INFORMATION: Exam: XR Abdomen, 2 Views Exam date and time: 01/01/2020 2:24 PM Age: 59 years old Clinical indication: Other: Back pain; Prior surgery; Surgery type: Hsyto, ulcer, stomach, colon, appy, gb; Additional info: Back pain x 3 days TECHNIQUE: Imaging protocol: XR of the abdomen. Views: 2 Views. COMPARISON: CR XR KUB [id number] 11/07/2019 9:10 AM FINDINGS: Gastrointestinal tract: Normal. No bowel dilation. There is moderate colonic fecal stasis in the ascending and proximal transverse colon. Intraperitoneal space: Surgical clips are present in the right upper quadrant. Bones/joints: Unremarkable for age. XR/XR abdomen min 2V [id number] IMPRESSION: 1. No acute findings. 2. Moderate colonic fecal stasis ascending colon. 3. Metallic surgical clips are present right upper quadrant
== END 2020-01-01 14:02 | disposition home or self-care (01) ==
LOC: RAD 14:05
PROVIDERS: PCP Family Medicine; Visit Provider Internal Medicine Medical Oncology
DX: M54.9 Dorsalgia, unspecified (principal); N20.0 Calculus of kidney; K59.8 Other specified functional intestinal disorders
CPT/HCPCS: 74019

== ENCOUNTER 2020-04-10 12:59 | Outpatient (CLI) | payer MEDICAID, SELFPAY | END 2020-04-10 13:00 | disposition home or self-care (01) | LOC: ONCMED 13:01 | PROVIDERS: PCP Family Medicine; Visit Provider Internal Medicine Medical Oncology | DX: Z45.2 Encounter for adjustment and management of vascular access device (principal) | CPT/HCPCS: 96523 ==

== ENCOUNTER 2020-05-13 12:52 | Emergency (ER) | payer MEDICAID, SELFPAY ==
[2020-05-13 12:54] VITALS: BP 128/82; PULSE 83; RESP 18; TEMP 36.9; O2SAT 96; BMI 23.8
[2020-05-13 13:01] VITALS: BP 113/83; PULSE 88; RESP 16; TEMP 36.8; O2SAT 97
--- NOTE | 2020-05-13 13:09 | ED_ITS ---
HPI - Nausea/Vomiting/Diarrhea General: Chief complaint: Nausea/Vomiting/Diarrhea Stated complaint: PASSING WATER THROUGH BOWEL, VOMITING Time Seen by Provider: 05/13/20 13:02 Source: patient Mode of arrival: ambulatory Limitations: no limitations History of Present Illness: HPI Narrative: Patient is a 60-year-old female who presents to ED today with a complaint of constipation/diarrhea, abdominal pain/distention, and nausea/vomiting. Patient tells me her last normal bowel movement was approximately a week ago. She states because of her constipation she has been trying [id number] laxatives including prune juice and MiraLAX. She states she has not been able to have a normal bowel movement but instead has had watery diarrhea over the past week. She states yesterday her abdomen felt very distended. She had 4-5 episodes of non-bloody vomit. She tells me she has felt nauseous all week. Patient has not been running fevers. She has not noticed any blood in her vomit or blood in her stools. 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 She has a history of two previous small bowel obstructions. MD elicited complaint: nausea, vomiting, diarrhea and abdominal pain Onset (ago): day(s) Description of diarrhea: watery Associated nausea: Yes Associated abdominal pain: Yes Pain consistency: intermittent Associated symtoms: Reports nausea; Denies change in vision, chest pain, dysuria, fatigue, headache(s), malaise, palpitations or syncope Review of Systems Const: Denies: fever(s), chills, body aches, fatigue or malaise Eyes: Denies: change in vision or blurry vision Card: Denies: chest pain, palpitations, irregular heart rhythm, lightheadedness, syncope or dyspnea on exertion Resp: Denies: dyspnea, productive cough or pain on inspiration GI: Reports: abdominal pain, nausea, vomiting and diarrhea; Denies: hematemesis, coffee ground emesis, dysphagia, hematochezia or melena : Denies: flank pain, difficulty voiding, dysuria, urinary frequency, urinary urgency or urinary hesitancy Musc: Denies: neck pain, back pain or joint pain Skin/Breast: Denies: rash Neuro: Denies: headache(s) PFS ED PFSH: Medical History (Updated 01/12/21 @ 14:45 by RODRIGO Ortiz) Chronic back pain Depression Disappearance and of family member Fibromyalgia Iron deficiency anemia Major depressive disorder, recurrent, mild Mild anemia Osteoporosis Peptic ulcer disease Port-A-Cath in place Status post extracorporeal shock wave therapy URETERAL STENT PLACEMENT Undifferentiated somatoform disorder Surgical History H/O bilateral oophorectomy H/O colonoscopy H/O: hysterectomy For fibroid and endometriosis History of bone marrow biopsy History of partial gastrectomy Secondary to peptic ulcer disease, perforated ulcer Hx of endoscopy Family History Father , IN HIS 50'S No problems noted. Mother , AT AGE 78 Cancer OVARIAN Other Hypertension Psychiatric illness Social History Smoking and tobacco status: former smoker Alcohol intake: never Adopted: No Caregiver/support person: No Housing: House Marital status: Current occupational status: disabled History of recent travel: No Physical Exam Const: COMMON NORMALS: no acute distress, average body habitus, patient oriented x3, no limitations, healthy appearing, alert and well nourished Resp: COMMON NORMALS: normal respiratory effort and clear to auscultation bilaterally AUSCULTATION: clear to auscultation bilaterally Cardio: COMMON NORMALS: regular rate and regular rhythm RATE: regular rate RHYTHM: regular rhythm GI: COMMON NORMALS: Normal to inspection, nondistended, normoactive bowel sounds present, Soft to palpation, No hepatosplenomegaly present and no masses PALPATION: Yes Soft to palpation, Yes Tenderness to palpation present (GI) (across lower abdomen) and Yes No hepatosplenomegaly present : COMMON NORMALS: Yes no CVA tenderness BLADDER/KIDNEY EXAM: Yes no CVA tenderness Back/Pelvis: COMMON NORMALS: no CVA tenderness Extremity: COMMON NORMALS: no clubbing, cyanosis or edema, no calf tenderness and no pedal edema Neuro: COMMON NORMALS: patient oriented x3 SENSORIUM/ORIENTATION: Yes alert Skin: COMMON NORMALS: no rashes or lesions noted GENERAL SKIN EXAM: no rashes or lesions noted Course Vital Signs: Vital signs: Vital Signs Temperature 98.3 F 05/13/20 13:01 Pulse Rate 76 01/12/21 13:41 Respiratory Rate 14 05/13/20 13:41 Blood Pressure 133/73 05/13/20 13:41 Pulse Oximetry 99 05/13/20 13:41 MDM - Nausea/Vomiting/Diarrhea Lab Data: Labs: Lab Results 05/13/20 05/13/20 05/13/20 Range/Units 13:29 13:29 13:51 WBC 6.2 (4.0-10.0) 10^3/ uL RBC 3.63 L (4.1-5.3) 10^6/u L Hgb 11.0 L (11.5-15.3) g/dL Hct 33.6 L (37.0-47.0) % MCV 92.6 (81-99) fL MCH 30.3 (28.0-34.0) pg MCHC 32.7 (30.0-36.0) g/dL RDW 11.9 L (12.1-15.1) % Plt Count 288 (130-400) 10^3/c mm MPV 8.7 (7.4-10.4) fL Neut % (Auto) 73.1 % Lymph % (Auto) 16.1 % [place] % (Auto) 7.1 % Eos % (Auto) 2.7 % Baso % (Auto) 0.5 % Neut # (Auto) 4.56 (1.8-7.7) 10^3/u L Lymph # (Auto) 1.0 (0.8-4.8) 10^3/u L [place] # (Auto) 0.4 (0.2-0.9) 10^3/u L Eos # (Auto) 0.2 (0.0-0.8) 10^3/u L Baso # (Auto) 0.0 (0.0-0.1) 10^3/u L Nucleated RBC % (a uto) 0 % Nucleated RBCs # 0.0 /100WBC Sodium 133 L (136-145) mmol/L Potassium 3.7 (3.5-5.1) mmol/L Chloride 97 L (98-107) mmol/L Carbon Dioxide 24 (22-29) mmol/L Anion Gap 15.7 (5-19) BUN 10 (6-20) mg/dL Creatinine 0.6 (0.5-0.9) mg/dL GFR Calculation 102.3 (90-130) mL/min Glucose 91 (65-115) mg/dL Calculated Osmolal ity 275 L (285-295) mOsm/k g Calcium 9.5 (8.5-10.5) mg/dL Total Bilirubin 0.2 (0.15-1.2) mg/dL AST 15 (0-32) U/L ALT 11 (0-33) U/L Alkaline Phosphata se 80 (35-105) IU/L Total Protein 6.4 L (6.6-8.7) g/dL Albumin 4.4 (3.5-5.2) g/dL Globulin 2.0 (1.3-4.6) g/dL Lipase 18 (13-60) U/L Urine Color Yellow (Yellow) Urine Appearance Clear (CLEAR) Urine pH 6 (5-7) Ur Specific Gravit y 1.010 (1.005-1.030) Urine Protein Neg (Negative) Urine Glucose (UA) Norm (Normal) Urine Ketones Negative (Negative) Urine Blood 2+ H (Negative) Urine Nitrate Negative (Negative) Urine Bilirubin Neg (Negative) Urine Urobilinogen Norm (Negative) mg/dL Ur Leukocyte Diane ase Negative (Negative) Urine RBC 5-10 H (0-2) /hpf Urine WBC None (0-5) /hpf Ur Squamous Epith Cells 0-4 H (0-5) /hpf Amorphous Sediment Not Reportable Urine Bacteria 1+ H (NONE) /hpf Imaging Data^: CT Abd/Pel: Radiologist's impression: [place] [address] CT Scan Report Signed Patient: Meka Odom #: [id number] : 1Acct#:[id number] Age/Sex: 60 / FADM Date: 05/13/20 Loc: ERRoom/Bed: Attending Dr: Ordering Provider/Ordering MD: Vviian Basilio Date of Service: 05/13/20 Procedure(s): CT abdomen pelvis w con* [id number] Accession Number(s): [id number] Report Number: [id number] WS: [id number] CT ABDOMEN PELVIS TECHNIQUE: Contrast-enhanced CT of the abdomen and pelvis with coronal and sagittal reformatted images. CLINICAL INFORMATION: nausea/vomiting, abdominal distention, diarrhea COMPARISON: CT October 14, 2019 and DLP: 358.[address] scans at [facility] use at least one of these dose optimization techniques: automated exposure control; mA and/or kV adjustment per patient size (includes targeted exams where dose is matched to clinical indication); or iterative reconstruction. FINDINGS: A few slightly prominent fluid distended loops of small bowel in the right lower quadrant distal ileum with mucosal enhancement. Fluid-filled loops of sigmoid colon with mucosal enhancement. Recommend correlation for infectious or inflammatory terminal ileitis and distal colitis. Findings can be seen with inflammatory bowel disease. No evidence of high-grade small or large bowel obstruction. Prior cholecystectomy. Prior hysterectomy. No hydronephrosis in either kidney. Small bilateral renal cysts. Prominent left extrarenal pelvis is improved since October 14, 2019. No obstructing renal or ureteral calculi today. Both ureters are decompressed. Mild diffuse fatty infiltration of the liver. Normal spleen. Lung bases are well aerated. Moderate fatty atrophy of the pancreas. Normal caliber abdominal aorta. No aneurysm.Fat-containing umbilical hernia CT/CT abdomen pelvis w con* [id number] IMPRESSION: 1. No obstructing renal or ureteral calculi. 2. Slightly prominent left extra renal pelvis improved compared to October 14, 2019. 3. A few prominent fluid-filled loops of distal small bowel and sigmoid colon with mucosal enhancement. Recommend correlation for infectious or inflammatory small bowel enteritis and distal colitis. Recommend correlation for history of inflammatory bowel disease. 4. No evidence of small or large bowel obstruction. 5. Mild diffuse fatty infiltration liver. 6. Prior cholecystectomy and hysterectomy. 7. Incidental fat-containing umbilical hernia. Dictated By:Mitul Escoto MD Signed By:Mitul Escoto MDSigned Date/Time:05/13/20 1425 DD/ 1410 Discharge Plan Discharge Patient Disposition: Home Clinical Impression: Enteritis Condition: Stable Prescriptions: New metronidazole [Flagyl] 500 mg tablet 500 mg PO BID 7 Days Qty: 14 RF: 0 ciprofloxacin HCl [Cipro] 500 mg tablet 500 mg PO Q12H Qty: 14 RF: 0 metoclopramide HCl [Reglan] 10 mg tablet 10 mg PO Q6H PRN (Reason: nausea and vomiting) Qty: 14 RF: 0 No Action duloxetine [Cymbalta] 60 mg capsule,delayed release(DR/EC) 60 mg PO DAILY RF: 0 montelukast [Singulair] 10 mg tablet 10 mg PO DAILY RF: 0 omeprazole 40 mg capsule,delayed release(DR/EC) 40 mg PO DAILY RF: 0 celecoxib [Celebrex] 200 mg capsule 400 mg PO DAILY RF: 0 oxycodone 5 mg tablet 5 mg PO Q6H PRN (Reason: Pain (Scale Score 4-6)) RF: 0 diphenhydramine HCl [Benadryl] 25 mg capsule 25 mg PO TID PRN (Reason: Pain) RF: 0 potassium chloride [Klor-Con 10] 10 mEq tablet extended release 10 meq PO BID RF: 0 loratadine [Claritin] 10 mg tablet 10 mg PO DAILY RF: 0 hydrochlorothiazide 12.5 mg tablet 12.5 mg PO DAILY RF: 0 [id number] [Yxqvfz-Zniyp-ZEL (with antiox)] 500-500-66.7 mg tablet 1 tab PO DAILY RF: 0 Laxative (bisacodyl) 5 mg tablet 5 mg PO DAILY RF: 0 ciprofloxacin HCl 500 mg tablet 500 mg PO BID Qty: 20 RF: 1 fluconazole 100 mg tablet 100 mg PO DAILY Qty: 3 RF: 2 amitriptyline 50 mg tablet 50 mg PO .HS Qty: 30 RF: 0 bupropion HCl [Wellbutrin SR] 200 mg tablet sustained-release 12 hr 200 mg PO BID Qty: 60 RF: 2 Hysingla ER 20 mg Tablet,Oral Only,Ext.Rel.24 Hr 20 mg PO DAILY RF: 0 tizanidine 4 mg Tablet 4 mg PO Q8H PRN (Reason: Muscle Spasm) RF: 0 folic acid 1 mg Tablet 1 mg PO BID Qty: 30 RF: 0 Thera 400 mcg Tablet 1 tab PO DAILY Qty: 30 RF: 0 Discharge Orders: Discharge ED (Routine); Ordered 05/13/20 Ordered By: Vivian Basilio Referrals: Thanh Meyer MD [Primary Care Provider] - Activity Restrictions/Additional Instructions: As discussed please follow-up with primary care in 48 to 72 hours for reevaluation. You may return to the emergency department for worsening abdominal pain, bloody diarrhea, bloody vomit, fevers, or any other concerns you may have. I hope you begin to feel better soon. Coding Level of Care Code ED It [employer] Specialist for Chg Fwd Exam Detailed
--- NOTE | 2020-05-13 13:26 | CT_ITS ---
WS: [id number] CT ABDOMEN PELVIS TECHNIQUE: Contrast-enhanced CT of the abdomen and pelvis with coronal and sagittal reformatted image s. CLINICAL INFORMATION: nausea/vomiting, abdominal distention, diarrhea COMPARISON: CT October 14, 2019 and DLP: 358.[address] scans at [facility] use at least one of these dose optimization techniques: automat ed exposure control; mA and/or kV adjustment per patient size (includes targeted exams where dose is matched to clinical indication); or iterative reconstruction. FINDINGS: A few slightly prominent fluid distended loops of small bowel in the right lower quadrant d istal ileum with mucosal enhancement. Fluid-filled loops of sigmoid colon with mucosal enhancement. R ecommend correlation for infectious or inflammatory terminal ileitis and distal colitis. Findings can be seen with inflammatory bowel disease. No evidence of high-grade small or large bowel obstruction. Prior cholecystectomy. Prior hysterectomy. No hydronephrosis in either kidney. Small bilateral renal cysts. Prominent left extrarenal pelvis is improved since October 14, 2019. No obstructing renal or uret eral calculi today. Both ureters are decompressed. Mild diffuse fatty infiltration of the liver. Norm al spleen. Lung bases are well aerated. Moderate fatty atrophy of the pancreas. Normal caliber abdominal aorta. No aneurysm.Fat-containing umbilical hernia CT/CT abdomen pelvis w con* [id number] IMPRESSION: 1. No obstructing renal or ureteral calculi. 2. Slightly prominent left extra renal pelvis improved compared to October 13. 3. A few prominent fluid-filled loops of distal small bowel and sigmoid colon with mucosal enhancement. Recommend correlation for infectious or inflammatory small bowel enteritis and distal colitis. Recommend correlation for history of inflammatory bowel disease. 4. No evidence of small or large bowel obstruction. 5. Mild diffuse fatty infiltration liver. 6. Prior cholecystectomy and hysterectomy. 7. Incidental fat-containing umbilical hernia.
[2020-05-13 13:31] VITALS: BP 126/78; PULSE 77; RESP 16; O2SAT 98
[2020-05-13] MEDS: iohexol 300 mg/mL 100 mL Btl IV (13:36)
[2020-05-13 13:38] LABS: Basophils % 0.5 %; Eosinophils # 0.2 10^3/uL (0.0-0.8); Eosinophils % 2.7 %; Hematocrit 33.6 % (37.0-47.0); Lymphocytes % 16.1 %; Mean Corpuscular HGB Conc 32.7 g/dL (30.0-36.0); Mean Corpuscular Hemoglobin 30.3 pg (28.0-34.0); Mean Corpuscular Volume 92.6 fL (81-99); Mean Platelet Volume 8.7 fL (7.4-10.4); Monocytes # 0.4 10^3/uL (0.2-0.9); Monocytes % 7.1 %; Neutrophils # 4.56 10^3/uL (1.8-7.7); Neutrophils % 73.1 %; Nucleated Red Blood Cells % 0 %; Platelet Count 288 10^3/cmm (130-400); Red Blood Count 3.63 10^6/uL (4.1-5.3); Red Cell Distribution Width 11.9 % (12.1-15.1); White Blood Count 6.2 10^3/uL (4.0-10.0)
[2020-05-13 13:41] VITALS: BP 133/73; PULSE 76; RESP 14; O2SAT 99
[2020-05-13] MEDS: sodium chloride 0.9% 1,000 ML 999 ML IV (13:48)
[2020-05-13 14:03] LABS: Alanine Aminotransferase 11 U/L (0-33); Albumin Level 4.4 g/dL (3.5-5.2); Alkaline Phosphatase 80 IU/L (35-105); Anion Gap 15.7 (5-19); Aspartate Amino Transferase 15 U/L (0-32); Blood Urea Nitrogen 10 mg/dL (6-20); Calcium 9.5 mg/dL (8.5-10.5); Carbon Dioxide 24 mmol/L (22-29); Chloride 97 mmol/L (98-107); Glomerular Filtration Rate 102.3 mL/min (90-130); Glucose 91 mg/dL (65-115); Lipase 18 U/L (13-60); Osmolality Calculated 275 mOsm/kg (285-295); Potassium 3.7 mmol/L (3.5-5.1); Sodium 133 mmol/L (136-145); Total Bilirubin 0.2 mg/dL (0.15-1.2); Total Protein 6.4 g/dL (6.6-8.7)
[2020-05-13 14:19] LABS: Urine Color Yellow (Yellow); pH Urine 6 (5-7)
[2020-05-13 14:20] LABS: Add Urine Microscopic? YES; Bilirubin Urine Neg (Negative); Blood Urine 2+ (Negative); Glucose Urine UA Norm (Normal); Ketones Urine Negative (Negative); Leukocyte Esterase Urine Negative (Negative); Nitrate Urine Negative (Negative); Protein Urine Neg (Negative); Urine Appearance Clear (CLEAR); Urobilinogen Urine Norm (Negative)
[2020-05-13 14:26] LABS: Add Urine Culture? No; Bacteria Urine 1+ /hpf; Squamous Epithelial Cell Urine 0-4 /hpf (0-5)
[2020-05-13 15:02] VITALS: BP 133/84; PULSE 81; RESP 17; O2SAT 99
== END 2020-05-13 15:03 | disposition home or self-care (01) ==
PROVIDERS: Emergency Provider Physician Assistant; PCP Family Medicine
DX: K52.9 Noninfective gastroenteritis and colitis, unspecified (principal); Z87.891 Personal history of nicotine dependence
CPT/HCPCS: 12345; 74177; 80053; 81001; 83690; 85025; 96360; 99283; J7030; Q9967

== ENCOUNTER 2020-05-20 14:54 | Outpatient (CLI) | payer MEDICAID, SELFPAY | END 2020-05-20 14:55 | disposition home or self-care (01) | LOC: RAD 02-12 12:25 | PROVIDERS: PCP Family Medicine; Visit Provider Urology | DX: N20.0 Calculus of kidney (principal); N12 Tubulo-interstitial nephritis, not specified as acute or chronic | CPT/HCPCS: 81003; 87077; 87086; 87184 ==

== ENCOUNTER 2020-05-29 13:39 | Outpatient (CLI) | payer MEDICAID, SELFPAY | END 2020-05-29 13:40 | disposition home or self-care (01) | LOC: ONCMED 13:40 | PROVIDERS: PCP Family Medicine; Visit Provider Internal Medicine Medical Oncology | DX: Z45.2 Encounter for adjustment and management of vascular access device (principal) | CPT/HCPCS: 96523 ==

== ENCOUNTER 2020-06-10 06:12 | Outpatient (CLI) | payer MEDICAID, SELFPAY ==
[2020-06-10] MEDS: ferric carboxy (IVPB) 750 MG in sodium chloride 0.9% (100 ml) 100 ML 345 MG IV (14:45)
== END 2020-06-10 06:13 | disposition home or self-care (01) ==
LOC: ONCMED 06:13
PROVIDERS: PCP Family Medicine; Visit Provider Nurse Practitioner
DX: D50.9 Iron deficiency anemia, unspecified (principal)
CPT/HCPCS: 96365; J1439

== ENCOUNTER 2020-09-04 11:26 | Outpatient (CLI) | payer MEDICAID, SELFPAY ==
[2020-09-04 12:11] LABS: Basophils % 0.5 %; Eosinophils # 0.4 10^3/uL (0.0-0.8); Eosinophils % 5.9 %; Hematocrit 32.8 % (37.0-47.0); Hemoglobin 10.9 g/dL (11.5-15.3); Lymphocytes % 15.4 %; Mean Corpuscular HGB Conc 33.2 g/dL (30.0-36.0); Mean Corpuscular Hemoglobin 30.7 pg (28.0-34.0); Mean Corpuscular Volume 92.4 fL (81-99); Mean Platelet Volume 9.1 fL (7.4-10.4); Monocytes # 0.4 10^3/uL (0.2-0.9); Monocytes % 6.8 %; Neutrophils # 4.39 10^3/uL (1.8-7.7); Neutrophils % 70.6 %; Nucleated Red Blood Cells % 0 %; Platelet Count 304 10^3/cmm (130-400); Red Blood Count 3.55 10^6/uL (4.1-5.3); Red Cell Distribution Width 12.2 % (12.1-15.1); White Blood Count 6.2 10^3/uL (4.0-10.0)
[2020-09-04 12:35] LABS: Alanine Aminotransferase 11 U/L (0-33); Albumin Level 4.2 g/dL (3.5-5.2); Alkaline Phosphatase 88 IU/L (35-105); Anion Gap 15.8 (5-19); Aspartate Amino Transferase 15 U/L (0-32); Blood Urea Nitrogen 11 mg/dL (6-20); Calcium 8.5 mg/dL (8.5-10.5); Carbon Dioxide 22 mmol/L (22-29); Chloride 97 mmol/L (98-107); Globulin 1.7 g/dL (1.3-4.6); Glomerular Filtration Rate 126.3 mL/min (90-130); Glucose 105 mg/dL (65-115); Osmolality Calculated 272 mOsm/kg (285-295); Potassium 3.8 mmol/L (3.5-5.1); Sodium 131 mmol/L (136-145); Total Bilirubin 0.2 mg/dL (0.15-1.2); Total Protein 5.9 g/dL (6.6-8.7)
[2020-09-04 12:59] LABS: Ferritin 112 ng/mL (15-150); Iron 76 ug/dL (37-145); Percent Saturation 22.4 % (20-50); Total Iron Binding Capacity 338 mcg/dl; Unsaturated Iron Binding 262 ug/dL (112-347)
[2020-09-04 13:14] LABS: Folate Level 11.4 ng/mL (4.8-37.3)
== END 2020-09-04 11:27 | disposition home or self-care (01) ==
LOC: ONCMED 11:28
PROVIDERS: PCP Family Medicine; Visit Provider Internal Medicine Medical Oncology
DX: D50.9 Iron deficiency anemia, unspecified (principal)
CPT/HCPCS: 36591; 80053; 81003; 82728; 82746; 83540; 83550; 85025; 87086

== ENCOUNTER → 2020-10-09 12:13 | Outpatient (BNVA) | payer MEDICAID, SELFPAY | PROVIDERS: PCP Family Medicine; Visit Provider Surgery | DX: D50.9 Iron deficiency anemia, unspecified (principal); R10.9 Unspecified abdominal pain; Z20.822 Contact with and (suspected) exposure to COVID-19 | CPT/HCPCS: 87635 ==

== ENCOUNTER 2020-10-14 08:17 | Day surgery (SDC) | payer MEDICAID, SELFPAY ==
[2020-10-10 14:44] VITALS: BMI 25.4
[2020-10-14 08:38] VITALS: BP 122/82; PULSE 70; RESP 18; TEMP 36.4; O2SAT 98
[2020-10-14] MEDS: sodium chloride 0.9% 1,000 ML 30 ML IV (09:24)
--- NOTE | 2020-10-14 09:52 | W.PM.OPSUD ---
Surgery/Procedure H&P Update DATE OF PROCEDURE: October 14, 2020 DATE H&P PERFORMED: 09/27/19 H&P UPDATE INFORMATION: I have reviewed H&P completed within last 30 days, I have examined patient prior to procedure and No changes to prior documentation PREOP DIAGNOSIS: panendoscopy PLANNED PROCEDURE: Operation Date: 10/14/20 09:30 Proposed Procedures p EGD [id number] d50.9 r10.9(Not Applicable) - Gabriel Biswas MD s Colonoscopy(Not Applicable) - Gabriel Biswas MD
--- NOTE | 2020-10-14 09:52 | ANES.PREANE2 ---
Pre-Anesthetic Assessment Pre-Anesthetic Assessment: Height/Weight: Height 1.52 m Weight 58.967 kg Temp Pulse Resp BP Pulse Ox 97.6 F 70 18 122/82 98 10/14/20 08:38 10/14/20 08:38 10/14/20 08:38 10/14/20 08:38 10/14/20 08:38 Preop Diagnosis: panendoscopy Proposed Procedure: Operation Date: 10/14/20 09:30 Proposed Procedures p EGD 13852 [id number] d50.9 r10.9(Not Applicable) - Gabriel Biswas MD s Colonoscopy(Not Applicable) - Gabriel Biswas MD Was Beta Ольга taken within 24 hours: N/A Was Clonidine taken within 24 hours: N/A Last intake: Intake Last Liquid Date 10/13/20 Last Liquid Time 20:45 Last Solid Date 10/12/20 Last Solid Time 18:00 Social: Social History: Tobacco and No alcohol Exam: Pre-Anes Outpt Exam: alert, oriented x 3 and regular rate & rhythm Airway: Submandibular: WNL Cervical ROM: WNL MP: 2 Dentition: False Pulmonary: Pulmonary: COPD CV/HEM: CV/HEM: Anemia GI: GI: GERD Metabolic: Comments: ETOH abuse Neuropsych: Neuropsych: Depression Anesthetic Plan: ASA status: 3 Anesthesia: MAC Risk of > 500 ml blood loss (7ml/kg in children): No Meds/Allergies Current Medications: Current Medications Generic Name Dose Route Start Last Admin Trade Name Freq PRN Reason Stop Dose Admin Sodium Chloride 1,000 mls @ 30 ml s/hr 10/14/20 08:30 10/14/20 09:24 Sodium Chloride 0.9% IV 10/15/20 08:29 30 mls/hr .Q24H GREG Administration PFSH Anesthesia PFSH: Medical History Chronic back pain Cystitis cystica Depression Fibromyalgia Iron deficiency anemia Major depressive disorder, recurrent, mild Osteoporosis Peptic ulcer disease Status post extracorporeal shock wave therapy URETERAL STENT PLACEMENT Undifferentiated somatoform disorder Surgical History H/O bilateral oophorectomy H/O colonoscopy H/O: hysterectomy For fibroid and endometriosis History of bone marrow biopsy History of partial gastrectomy Secondary to peptic ulcer disease, perforated ulcer Hx of endoscopy Port-A-Cath in place Family History Father , IN HIS 50'S No problems noted. Mother , AT AGE 78 Cancer OVARIAN Other Hypertension Psychiatric illness Social History Smoking and tobacco status: former smoker Alcohol intake: never Adopted: No Caregiver/support person: No Housing: House Marital status: Current occupational status: disabled History of recent travel: No Data Anesthesia Cardiac Studies: No Data to Display
[2020-10-14 10:54] VITALS: BP 115/73; PULSE 67; RESP 18; TEMP 36.6; O2SAT 100
--- NOTE | 2020-10-14 10:55 | ANE.PACU2 ---
Inpatient post-anesthesia follow up: Airway intact: Yes Vital signs: Temperature 97.8 F Pulse Rate 67 Respiratory Rate 18 Blood Pressure 115/73 Pulse Oximetry 100 Oxygen Delivery Me thod Room Air Oxygen Flow Rate Fraction of Inspir ed Oxygen Hydration adequate: Yes Nausea and vomiting: No Pain level: 1 Mental status: Baseline
[2020-10-14 11:06] VITALS: BP 118/54; PULSE 69; RESP 18; TEMP 36.6; O2SAT 100
== END 2020-10-14 11:23 | disposition home or self-care (01) ==
PROVIDERS: PCP Family Medicine; Visit Provider Surgery
PROC: 0DJ08ZZ Inspection of Upper Intestinal Tract, Via Natural or Artificial Opening Endoscopic (ICD-10-PCS; CPT 43235; principal; 2020-10-14 09:30)
PROC: 0DJD8ZZ Inspection of Lower Intestinal Tract, Via Natural or Artificial Opening Endoscopic (ICD-10-PCS; CPT 45378; 2020-10-14 09:30)
DX: K29.70 Gastritis, unspecified, without bleeding (principal); K57.30 Diverticulosis of large intestine without perforation or abscess without bleeding; K64.8 Other hemorrhoids; R10.9 Unspecified abdominal pain; D50.9 Iron deficiency anemia, unspecified; M81.0 Age-related osteoporosis without current pathological fracture; Z87.11 Personal history of peptic ulcer disease
CPT/HCPCS: 43239; 45378; 88305; 96360; 96361; J2704; J7030

== ENCOUNTER 2020-10-21 11:24 | Outpatient (CLI) | payer MEDICAID, SELFPAY ==
--- NOTE | 2020-10-21 12:15 | XRR_ITS ---
PROCEDURE INFORMATION: Exam: XR Abdomen Exam date and time: 10/21/2020 12:15 PM Age: 60 years old Clinical indication: Other: Left kidney pain, posterior abdomen; Prior surgery; Surgery type: Hysterectomy, section of stomach and colon removed, gb, appendectomy; Additional info: Back pain, kub ozh 10/21/20 @ 12:15 with appt to follow TECHNIQUE: Imaging protocol: XR of the abdomen. Views: Frontal supine view of the abdomen. 1 View. COMPARISON: CT abdomen pelvis w con* [id number] 05/13/2020 1:28 PM FINDINGS: Tubes, catheters and devices: Surgical clips are seen projecting over the upper abdomen. Gastrointestinal tract: Normal. No bowel dilation. Bones/joints: Trace levocurvature of the lumbar spine is present. No acute osseous injury seen. Other findings: No radiopaque calculus seen. XR/XR KUB [id number] IMPRESSION: No radiopaque kidney stone seen.
== END 2020-10-21 11:25 | disposition home or self-care (01) ==
LOC: RAD 11:26
PROVIDERS: PCP Family Medicine; Visit Provider Urology
DX: M54.9 Dorsalgia, unspecified (principal)
CPT/HCPCS: 74018; 81003

== ENCOUNTER 2020-11-07 13:29 | Outpatient (CLI) | payer MEDICAID, SELFPAY ==
[2020-11-07] MEDS: iohexol 300 mg/mL 50 mL Btl IV (14:13)
--- NOTE | 2020-11-07 15:00 | CT_ITS ---
WS: [id number] CT ABDOMEN AND PELVIS WITH CONTRAST HISTORY: R10.9 - Unspecified abdominal pain TECHNIQUE: Imaging performed of the abdomen and pelvis with IV contrast. Single phase imaging of the abdomen. Coronal and sagittal reformats are submitted. All CT scans at [facility] use at least one of these dose optimization techniques: automated exposure control; mA and/or kV adjustment per patient size (includes targeted exams where dose is matched to clinical indication); or iterativ e reconstruction. IV CONTRAST: Omnipaque 300; 95 mL IV. Oral contrast: Yes. DLP: 1252.34 mGy.cm COMPARISON: 05/13/2020 Lower thorax: Lung bases are clear. Heart is normal size. No hiatal hernia. Liver/biliary system: Normal size with no intrahepatic dilatation. Gallbladder: Status post cholecystectomy. Pancreas: Fatty replacement of the pancreas. Spleen: Normal size spleen. No mass or infarct. Adrenal glands: Normal. Right kidney: A few focal areas of cortical thinning and scarring. Small extrarenal pelvis with no ob struction. Left kidney: No hydronephrosis. Extrarenal pelvis is stable. Aorta: Normal. Lymphadenopathy: There are several indeterminate lymph nodes within the mesentery. Just to the RIGHT of midline there are several centimeters measuring 10 to 11 mm. Additional smaller RIGHT lower quadra nt lymph nodes are identified. Free fluid: None. GI tract: There is an abnormal appearance to the GI tract in the RIGHT lower quadrant. There is a loo p of small bowel with mild hyperemia and wall thickening. There is increase fluid in the mid to dista l small bowel loops. No high-grade obstruction is apparent. There is diffuse marked constipation. Inv olving the transverse colon. There is circumferential narrowing extending over length of 5 cm. There is wall thickening and mild edema. Colon is dilated and demonstrates constipation on both sides of th is luminal narrowing. Appendix not identified. Abdominal wall: Ventral abdominal wall hernia contains fat and a loop of small bowel with no obstruct ion. Pelvis: Well-distended urinary bladder. No free fluid. Bones: Unremarkable. CT/CT abdomen pelvis w con* [id number] IMPRESSION: 1. Circumferential narrowing of the transverse colon without a high-grade obst ruction at this time. Post infectious or inflammatory stricture not excluded. N eoplasm is also not excluded. Colonoscopy may be necessary. 2. There is diffuse marked constipation. 3. Hyperemic loop of small bowel in the RIGHT lower quadrant. There is signifi cant wall thickening and hyperemia and increased luminal fluid. No obstruction. This will need to be further evaluated for underlying neoplasm or infection. 4. Indeterminate mesenteric lymph nodes measure up to 11 mm in the RIGHT abdom en. These may be neoplastic or reactive. Minimal change since 05/13/2020.
== END 2020-11-07 13:30 | disposition home or self-care (01) ==
LOC: RADWPI 13:32 → RAD 13:35
PROVIDERS: PCP Family Medicine; Visit Provider Surgery
DX: R10.9 Unspecified abdominal pain (principal); K59.00 Constipation, unspecified
CPT/HCPCS: 74177

== ENCOUNTER 2021-01-20 13:29 | Outpatient (CLI) | payer MEDICAID, SELFPAY ==
[2021-01-20 14:08] LABS: Basophils % 0.7 %; Eosinophils # 0.3 10^3/uL (0.0-0.8); Eosinophils % 7.5 %; Hematocrit 25.1 % (37.0-47.0); Hemoglobin 7.6 g/dL (11.5-15.3); Lymphocytes # 0.8 10^3/uL (0.8-4.8); Mean Corpuscular HGB Conc 30.3 g/dL (30.0-36.0); Mean Corpuscular Hemoglobin 25.7 pg (28.0-34.0); Mean Corpuscular Volume 84.8 fl (81-99); Mean Platelet Volume 9.4 fL (7.4-10.4); Monocytes # 0.5 10^3/uL (0.2-0.9); Monocytes % 12.3 %; Neutrophils # 2.51 10^3/uL (1.8-7.7); Neutrophils % 60.3 %; Nucleated Red Blood Cells % 0 %; Platelet Count 263 10^3/cmm (130-400); Red Blood Count 2.96 10^6/uL (4.1-5.3); Red Cell Distribution Width 14.6 % (12.1-15.1); White Blood Count 4.2 10^3/uL (4.0-10.0)
[2021-01-20 14:32] LABS: Alanine Aminotransferase 13 U/L (0-33); Albumin Level 3.7 g/dL (3.5-5.2); Alkaline Phosphatase 80 IU/L (35-105); Anion Gap 15.8 (5-19); Aspartate Amino Transferase 21 U/L (0-32); Blood Urea Nitrogen 9 mg/dL (6-20); Calcium 8.4 mg/dL (8.5-10.5); Carbon Dioxide 22 mmol/L (22-29); Chloride 103 mmol/L (98-107); Ferritin 10 ng/mL (15-150); Globulin 1.9 g/dL (1.3-4.6); Glomerular Filtration Rate 73.4 mL/min (90-130); Glucose 82 mg/dL (65-115); Iron 14 ug/dL (37-145); Osmolality Calculated 282 mOsm/kg (285-295); Percent Saturation 3.6 % (20-50); Potassium 3.8 mmol/L (3.5-5.1); Sodium 137 mmol/L (136-145); Total Bilirubin 0.2 mg/dL (0.15-1.2); Total Iron Binding Capacity 388 mcg/dl; Total Protein 5.6 g/dL (6.6-8.7); Unsaturated Iron Binding 374 ug/dL (112-347)
[2021-01-20 14:50] LABS: Folate Level 5.6 ng/mL (4.8-37.3)
== END 2021-01-20 13:30 | disposition home or self-care (01) ==
LOC: ONCMED 13:32
PROVIDERS: PCP Family Medicine; Visit Provider Internal Medicine Medical Oncology
DX: D50.0 Iron deficiency anemia secondary to blood loss (chronic) (principal); K90.9 Intestinal malabsorption, unspecified; Z79.899 Other long term (current) drug therapy
CPT/HCPCS: 36591; 80053; 82728; 82746; 83540; 83550; 85025

== ENCOUNTER 2021-01-29 12:48 | Outpatient (CLI) | payer MEDICAID, SELFPAY ==
[2021-01-29] MEDS: ferric carboxy (IVPB) 750 MG in sodium chloride 0.9% (100 ml) 100 ML 460 MG IV (13:30)
== END 2021-01-29 12:49 | disposition home or self-care (01) ==
LOC: ONCMED 12:49
PROVIDERS: PCP Family Medicine; Visit Provider Internal Medicine Medical Oncology
DX: D50.9 Iron deficiency anemia, unspecified (principal)
CPT/HCPCS: 96365; J1439

== ENCOUNTER 2021-02-10 06:42 | Outpatient (CLI) | payer MEDICAID, SELFPAY ==
[2021-02-10] MEDS: ferric carboxy (IVPB) 750 MG in sodium chloride 0.9% (100 ml) 100 ML 460 MG IV (12:10)
== END 2021-02-10 06:43 | disposition home or self-care (01) ==
LOC: ONCMED 06:43
PROVIDERS: PCP Family Medicine; Visit Provider Internal Medicine Medical Oncology
DX: D50.9 Iron deficiency anemia, unspecified (principal)
CPT/HCPCS: 96365; J1439

== ENCOUNTER → 2021-02-24 13:27 | Outpatient (BNVA) | payer MEDICAID, SELFPAY | PROVIDERS: PCP Family Medicine; Visit Provider Nurse Practitioner Family | DX: N30.80 Other cystitis without hematuria (principal) | CPT/HCPCS: 81003 ==

== ENCOUNTER 2021-03-03 09:19 | Outpatient (CLI) | payer MEDICAID, SELFPAY ==
[2021-03-03 09:52] LABS: Basophils % 0.5 %; Eosinophils # 0.1 10^3/uL (0.0-0.8); Eosinophils % 1.8 %; Hematocrit 32.4 % (37.0-47.0); Hemoglobin 10.5 g/dL (11.5-15.3); Lymphocytes # 0.9 10^3/uL (0.8-4.8); Lymphocytes % 11.7 %; Mean Corpuscular HGB Conc 32.4 g/dL (30.0-36.0); Mean Corpuscular Hemoglobin 27.1 pg (28.0-34.0); Mean Corpuscular Volume 83.5 fl (81-99); Mean Platelet Volume 9.5 fL (7.4-10.4); Monocytes # 0.7 10^3/uL (0.2-0.9); Monocytes % 8.3 %; Neutrophils # 6.12 10^3/uL (1.8-7.7); Neutrophils % 77.2 %; Nucleated Red Blood Cells % 0 %; Platelet Count 282 10^3/cmm (130-400); Red Blood Count 3.88 10^6/uL (4.1-5.3); Red Cell Distribution Width 19.8 % (12.1-15.1); White Blood Count 7.9 10^3/uL (4.0-10.0)
[2021-03-03 10:09] LABS: Ferritin 562 ng/mL (15-150); Iron 107 ug/dL (37-145); Percent Saturation 41.9 % (20-50); Total Iron Binding Capacity 255 mcg/dl; Unsaturated Iron Binding 148 ug/dL (112-347)
--- NOTE | 2021-03-04 06:41 | ONC FU_ITS ---
Dr. Medina Patient Follow-Up Note Patient: Preeti Odom Unit #: [id number]: [id number] Dicatated By: Lauri Medina M.D.Date of Visit:Mar 03, 2021 Onc Med Follow-up/Prog Note Chief Complaint: Anemia. History of Present Illness: This is a 60 year-old woman with a mild chronic anemia. She had chronic iron deficiency anemia for 13 years prior to presentation, requiring Port-A-Cath placement and frequent IV iron administration. She underwent a total abdominal hysterectomy for fibroid uterus and endometriosis in 1994, followed by bilateral oophorectomies in 1996. She had a history of perforated bleeding peptic ulcer disease, requiring extensive surgery with en-block resection, partial gastrectomy, small bowel resection, and colectomy in 2010 at [address] In 2012 she had an acute on chronic anemia, for which she received a course of IV iron over about one year. She reported having endoscopy, colonoscopy, bone marrow biopsy performed at the [address] Those records were not available. Laboratory analysis in on 11/21/2014 showed normal CBC analysis, MCV 88, iron panel unremarkable. She had then relocated to [facility]. She was first seen by Dr. Fonseca on 05/16/2015. Iron deficiency was confirmed, hemoglobin 10.8 g/dL. Hemoccult positive. She was given parenteral iron replacement with a single infusion of Injectafer, completed on 06/12/2015. She was seen for a follow-up visit on 07/19/2016. She was still mildly anemic. Her further laboratory studies on 08/31/2016 showed hemoglobin just borderline low at 12.4 g. Her serum iron studies, though, did show low transferrin saturation at 12%, consistent with iron deficiency. She was having significant fatigue, and at that point I did opt to give her another infusion of Injectafer, which she completed on 09/03/2016. I had seen her for a followup visit in January 2017. At that time she was still mildly anemic, but her transferrin saturation and ferritin level were normal, and I opted to just continue observation/expectant management. Her other medical illnesses include GERD/peptic ulcer disease, fibromyalgia, degenerative arthritis, osteoporosis, and depression. She has chronic back pain, and she has chronic headaches. She had smoked in the past, but she quit smoking 17 years ago. INTERIM HISTORY: As of August 2017 her studies were again consistent with iron deficiency, transferrin saturation 17% and ferritin level 26 ng/mL. She was given a single infusion of Injectafer. Her repeat CBC in January 2019 showed hemoglobin adequate at 12.4 g with transferrin saturation 29% and ferritin level 54 ng/mL. At her followup visit in June 2018 her hemoglobin had declined just slightly, but her transferrin saturation and ferritin were consistent with iron deficiency, and she was given an additional infusion of Injectafer. Her repeat laboratory studies on 10/10/2018 again showed adequate hemoglobin at 12.0 g with slightly low transferrin saturation and normal ferritin. She was found to have low potassium at 2.9 mmol/L, and she then began on an oral potassium supplement. As of her follow-up been November 2018 her hemoglobin was stable at 11.9 g with transferrin saturation slightly low at 17.1% but with ferritin normal at 141 ng/mL. On 10/14/2019 she was admitted to the hospital with left obstructive pyelonephritis. She underwent cystoscopy with left ureteral stent placement for a large left mid ureteral stone. The stent was later removed. As of 10/25/2019 her hemoglobin had declined to 9.3 g with hematocrit 30.1%. Her transferrin saturation was low at 14%, consistent with iron deficiency. She was then given parenteral iron replacement with 2 infusions of Injectafer, which she tolerated well. She is seen for a followup visit. She has been feeling much better generally following the iron infusions. During this time she has been seeing Dr. Lr for chronic cystitis and she has been seeing Dr. Biswas for abdominal pain and suspected diverticulitis. She has been on antibiotic therapy with ciprofloxacin and metronidazole, she is also on urinary prophylaxis with nitrofurantoin. She still has some fatigue, she is doing light work. ECOG score is 1. Her appetite is good. She has no fever or night sweats. She has continued to have abdominal pain despite the antibiotic therapy and despite taking Protonix twice a day. She says she had a black stool this morning. She has been referred to a leader assembler for further management of her GI symptoms. She has no other significant complaints at this time. Medications: Amitriptyline HCl 1 (25 mg) Tablet Oral at bedtime, BuPROPion HCl 1 Tablet (of 150 mg) Oral b.i.d., CeleBREX 1 Capsule Oral b.i.d., Cyclobenzaprine HCl 1 (5 mg) Tablet Oral b.i.d. PRN, Excedrin Migraine Tablet Oral PRN, Glucosamine Chondr Complex Capsule Oral b.i.d., Pantoprazole Sodium 1 Tablet (of 40 mg) Tablet, enteric coated Oral b.i.d., Senna S 1 (8.6-50 mg) Tablet Oral b.i.d., traMADol HCl 1 Tablet (of 50 mg) Oral b.i.d. Allergies: No Known Allergies. Vital Signs: Performed on Mar 03, 2021 11:15 Height - 60.00 in Weight - 129.2 lbs (HIGH) BSA - 1.55 sq.m BMI - 25.23 Temperature - 97.8 F (LOW) Pulse - 78 /min Respiration - 18 /min BP - 104/67 mm(hg) O2 Sat - 98 % Pain - 8 Fatigue - 7 Physical Examination: Constitutional - She looks good generally, Eyes - Sclerae nonicteric. Conjunctivae clear, ENMT - There are no lesions noted in the oral cavity, Hematologic/Lymphatic - No cervical, clavicular, or axillary adenopathy, Respiratory - Lungs are clear with good air movement bilaterally, Cardiovascular - Heart rhythm is regular. There is no murmur, gallop, or rub noted, Abdomen - Abdomen is generally tender, paricularly in the right lower quadrant. Liver and spleen are not enlarged. There is no abdominal mass or ascites noted and there is no inguinal adenopathy, Extremities - No edema, Neurologic - No focal neurologic deficits noted. Lab/Imaging: Test performed on Mar 03, 2021 09:45 Ferritin 562 ng/mL Iron 107 mcg/dL Iron Binding Capacity (TIBC) 255 mcg/dl % Iron Saturation 41.9 % UIBC 148 mcg/dL WBC 7.9 10 3/uL RBC 3.88 10 6/uL HGB 10.5 g/dL HCT 32.4 % MCV 83.5 fl MCH 27.1 pg MCHC 32.4 g/dL RDW 19.8 % Platelet Count 282 10 3/cmm MPV 9.5 fL Neutrophils 6.12 10 3/uL Lymphocytes 0.9 10 3/uL Monocytes 0.7 10 3/uL Eosinophils 0.1 10 3/uL Basophils 0.0 10 3/uL Neutrophil % 77.2 % Lymphocyte % 11.7 % Monocyte % 8.3 % Eosinophil % 1.8 % Basophils % 0.5 % NRBC % 0 % Problem List: 1. Chronic anemia with recurrent episodes of iron deficiency. 2. She has an extensive history of gastrointestinal disease, including GERD and history of perforated ulcer. Her prior surgeries include partial gastrectomy and partial small bowel resection with Billroth I anastomosis and partial colectomy in 2010. 3. In October 2019 she was admitted to the hospital with left obstructive pyelonephritis. She has ongoing chronic cystitis. 4. Fibromyalgia. 5. Degenerative arthritis. 6. Osteoporosis. 7. She has chronic back pain and chronic headache. 8. Anxiety/depression. Problems Addressed with this Encounter and Plan: Patient with chronic anemia. She has had recurrent episodes of iron deficiency. This is likely due to combination of GI blood loss and inadequate oral iron absorption. She has an extensive history of gastrointestinal disease, including GERD and history of perforated ulcer. Her prior surgeries include partial gastrectomy and partial small bowel resection with Billroth I anastomosis and partial colectomy in 2010. She has required parenteral iron replacement on multiple occasions, generally with good response. She was most recently treated with infusions of Injectafer on 01/29/2021 and 02/10/2021. At this point she remains mildly anemic, though with normal transferrin saturation and with mildly elevated serum ferritin. As such, I will just monitor her expectantly. She has ongoing GI symptoms, and she is being scheduled to see a leader assembler for further management. In the meantime, I am going to recheck a stool IFOB. She will be scheduled for repeat lab studies in 1 month. Signed By: Lauri Medina M.D. <<Signature on File>>
== END 2021-03-03 09:20 | disposition home or self-care (01) ==
LOC: ONCMED 09:21
PROVIDERS: PCP Family Medicine; Visit Provider Internal Medicine Medical Oncology
DX: D50.9 Iron deficiency anemia, unspecified (principal); K21.9 Gastro-esophageal reflux disease without esophagitis; N30.20 Other chronic cystitis without hematuria; M79.7 Fibromyalgia; M81.0 Age-related osteoporosis without current pathological fracture; K27.9 Peptic ulcer, site unspecified, unspecified as acute or chronic, without hemorrhage or perforation; F32.A Depression, unspecified; Z79.899 Other long term (current) drug therapy; Z98.890 Other specified postprocedural states; Z87.891 Personal history of nicotine dependence
CPT/HCPCS: 36591; 82728; 83540; 83550; 85025; 99214

== ENCOUNTER 2021-03-21 11:12 | Inpatient (IN) | payer MEDICAID, SELFPAY ==
[2021-03-21 11:23] VITALS: BP 121/87; PULSE 118; RESP 18; TEMP 35.9; O2SAT 96; BMI 20.9
--- NOTE | 2021-03-21 12:10 | CTR_ITS ---
PROCEDURE INFORMATION: Exam: CT Abdomen And Pelvis With Contrast Exam date and time: 03/21/2021 12:10 PM Age: 61 years old Clinical indication: Abdominal pain; Additional info: Eval sbo TECHNIQUE: Imaging protocol: Computed tomography of the abdomen and pelvis with contrast. Radiation optimization: All CT scans at this facility use at least one of these dose optimization techniques: automated exposure control; mA and/or kV adjustment per patient size (includes targeted exams where dose is matched to clinical indication); or iterative reconstruction. Contrast material: OMNI 300; Contrast volume: 95 ml; Contrast route: INTRAVENOUS (IV); COMPARISON: CT abdomen pelvis w con* [id number] 11/07/2020 3:18 PM RADIATION DOSE METRICS: Total DLP (mGy-cm): 1148.65 FINDINGS: Liver: Normal. No mass. Gallbladder and bile ducts: Stable cholecystectomy. Pancreas: Normal. No ductal dilation. Spleen: Normal. No splenomegaly. Adrenal glands: Normal. No mass. Kidneys and ureters: Normal. No hydronephrosis. Stomach and bowel: Stable partial gastrectomy with gastroduodenostomy. Interval appearance of bowel wall thickening in the duodenum and proximal jejunum consistent with proximal enteritis. Dilated loops of small bowel up to 4.4 cm in diameter in the distal jejunum and ileum with transition point in the right pelvis in the region of distal ileum consistent with high-grade small bowel obstruction. Appendix: No evidence of appendicitis. Intraperitoneal space: Unremarkable. No free air. No significant fluid collection. Vasculature: Unremarkable. No abdominal aortic aneurysm. Lymph nodes: Unremarkable. No enlarged lymph nodes. Urinary bladder: Unremarkable as visualized. Reproductive: Stable hysterectomy. Bones/joints: Unremarkable. No acute fracture. Soft tissues: Continued left para umbilical hernia containing segment of air-filled anterior wall of mid transverse colon. Previously this contained a loop of non incarcerated small bowel. The patient may be at risk for Laird's hernia. Axial series 2, images 42-47, sagittal series 601, image 38. Other findings: Transition point in the right pelvis is seen on axial series 2, images 65-67 and coronal series 602, images 28-29. CT/CT abdomen pelvis w con* [id number] IMPRESSION: 1. Stable partial gastrectomy with gastroduodenostomy. 2. Stable cholecystectomy. 3. Interval appearance of bowel wall thickening in the duodenum and proximal jejunum consistent with proximal enteritis. 4. Dilated loops of small bowel up to 4.4 cm in diameter in the distal jejunum and ileum with transition point in the right pelvis in the region of distal ileum consistent with high-grade small bowel obstruction. 5. Transition point in the right pelvis is seen on axial series 2, images 65-67 and coronal series 602, images 28-29. 6. Continued left para umbilical hernia containing segment of air-filled anterior wall of mid transverse colon. Previously this contained a loop of non incarcerated small bowel. The patient may be at risk for Laird's hernia. Axial series 2, images 42-47, sagittal series 601, image 38. Radiation Dose CTDIVOL = (mGy): DLP = 1148.65 (mGy-cm)
--- NOTE | 2021-03-21 12:24 | ED_ITS ---
HPI - General Adult General: Chief complaint: Abdominal Pain Stated complaint: Abdominal Swelling Time Seen by Provider: 03/21/21 11:52 History of Present Illness: HPI narrative: Patient is a 61-year-old female with history of appendectomy, cholecystectomy, prior bowel surgery complicated by small bowel function presenting to the emergency room with acute onset nausea vomiting, abdominal distention decreased stooling x2 days. Patient says that she noticed symptoms of nausea and vomiting since yesterday and this morning has noticed her abdominal abdomen is distended. Patient has not been in the past 2 days. Patient denies any fever chills, cough, runny nose sore throat, symptoms of dysuria or hematuria or new vaginal discharge. Onset: 2 days ago Duration:2 days Location:home Severity: moderate Review of Systems Narrative: Constitutional: No fever, no chills. HEENT: No vision changes CV: No chest pain, no palpitations PULM: no cough, no dyspnea. GI: +generalized abdominal pain, +abdominal distension, +N/+V/-D. : No dysuria MSKEL: No muscle pain SKIN: No new rashes, no lesions. NEURO: No headache, no focal weakness. HEME: No visible bruises PSYCH: Normal mood PFSH ED PFSH: Medical History (Updated 03/22/21 @ 08:22 by Tiago Simpson MD) Chronic back pain Constipation Cystitis cystica Depression Diverticulosis Fibromyalgia Iron deficiency anemia Major depressive disorder, recurrent, mild Osteoporosis Peptic ulcer disease Status post extracorporeal shock wave therapy URETERAL STENT PLACEMENT Undifferentiated somatoform disorder Surgical History (Updated 03/22/21 @ 08:23 by Tiago Simpson MD) H/O bilateral breast reduction surgery H/O colonoscopy (10/14/20) Diverticulosis H/O rhinoplasty Nasal fracture H/O right knee surgery H/O: hysterectomy For fibroid and endometriosis / BSO History of appendectomy History of bone marrow biopsy History of partial gastrectomy Secondary to peptic ulcer disease, perforated ulcer / partial transverse colectomy with reanastomosis ([place], [place]) History of tonsillectomy Hx of cholecystectomy Port-A-Cath in place Placed for transfusions for chronic anemia S/P LASIK surgery of both eyes Family History Father , IN HIS 50'S No problems noted. Mother , AT AGE 78 Cancer OVARIAN Other Hypertension Psychiatric illness Social History Smoking and tobacco status: former smoker Alcohol intake: never Adopted: No Caregiver/support person: No Housing: House Marital status: Current occupational status: disabled History of recent travel: No Physical Exam Narrative: EXAM NARRATIVE: Head: Atraumatic Eyes: PERRL, conjunctiva without injection ENT: Mucous membrane dry NECK: Supple, ROM intact LUNGS: LCTAB, no crackles/rhonchi CV: Sinus tachycardia ABDOMEN: Soft, +diffuse abd tenderness to plapation. NO guarding rebound, guarding, rigidity. No CVA tenderness to percussion. Neg Neal/Neg McBurney's point tenderness, no suprabupic tenderness to palpation. EXTREMITY: Normal ROM SKIN: No rash or erythema NEURO: Awake and alert, no focal motor deficits PSYCH: Normal mood and affect Course Vital Signs: Vital signs: Vital Signs Temperature 97.1 F L 03/22/21 10:42 Pulse Rate 89 03/22/21 11:02 Respiratory Rate 16 03/22/21 11:02 Blood Pressure 126/69 03/22/21 11:07 Pulse Oximetry 92 03/22/21 11:07 MDM - General Adult MDM Narrative: Medical decision making narrative: 61-year-old female with history of appendectomy, cholecystectomy, prior abdominal resection presenting to the emergency room with complaints of diffuse abdominal pain, nausea/vomiting, abdominal distention x2 days. On exam, patient has generalized tenderness to palpation grossly. No guarding no rebound tenderness. Patient's not be tachycardic to 112 appears dry on exam. History and physical exam is concerning for possible small bowel obstruction or other acute intra-abdominal pathology. Work-up, CBC, CMP, lipase, UA, lactic acid, CT abdomen pelvis Bedside ultrasound confirmed enlarged small intestines with [id number] peristaltic contents suggestive of small bowel obstruction. Intervention: IVF, NPO, NG tube, zofran, fentanyl (headache to morphine) Dr Simpson from General Surgery will follow. Disposition: Plan to admit patient for further workup and management of SBO. Patient agrees. Lab Data: Labs: Lab Results 03/21/21 03/21/21 03/21/21 13:00 13:00 13:00 WBC 10.6 10^3/uL H 10 ^3/uL (4.0-10.0) RBC 4.83 10^6/uL 10^6 /uL (4.1-5.3) Hgb 13.3 g/dL g/dL (11.5-15.3) Hct 43.4 % % (37.0-47.0) MCV 89.9 fl fl (81-99) MCH 27.5 pg L pg (28.0-34.0) MCHC 30.6 g/dL g/dL (30.0-36.0) RDW 21.2 % H % (12.1-15.1) Plt Count 313 10^3/cmm 10^3 /cmm (130-400) MPV 9.6 fL fL (7.4-10.4) Neut % (Auto) 85.5 % % Lymph % (Auto) 4.0 % % [place] % (Auto) 9.3 % % Eos % (Auto) 0.5 % % Baso % (Auto) 0.4 % % Neut # (Auto) 9.05 10^3/uL H 10 ^3/uL (1.8-7.7) Lymph # (Auto) 0.4 10^3/uL L 10^ 3/uL (0.8-4.8) Free[place] # (Auto) 1.0 10^3/uL H 10^ 3/uL (0.2-0.9) Eos # (Auto) 0.1 10^3/uL 10^3/ uL (0.0-0.8) Baso # (Auto) 0.0 10^3/uL 10^3/ uL (0.0-0.1) Nucleated RBC % (a uto) 0 % % Nucleated RBCs # 0.0 /100WBC /100W BC Sodium 138 mmol/L mmol/L (136-145) Potassium 3.8 mmol/L mmol/L (3.5-5.1) Chloride 104 mmol/L mmol/L (98-107) Carbon Dioxide 18 mmol/L L mmol/ L (22-29) Anion Gap 19.8 H (5-19) BUN 23 mg/dL mg/dL (8-23) Creatinine 0.6 mg/dL mg/dL (0.5-0.9) GFR Calculation 102.0 mL/min mL/m in (90-130) Glucose 107 mg/dL mg/dL (65-115) Calculated Osmolal ity 290 mOsm/kg mOsm/ kg (285-295) Lactate 0.9 mmol/L mmol/L (0.5-2.2) Calcium 8.9 mg/dL mg/dL (8.5-10.5) Total Bilirubin 0.3 mg/dL mg/dL (0.15-1.2) AST 13 U/L U/L (0-32) ALT 10 U/L U/L (0-33) Alkaline Phosphata se 85 IU/L IU/L (35-105) Total Protein 6.5 g/dL L g/dL (6.6-8.7) Albumin 4.3 g/dL g/dL (3.5-5.2) Globulin 2.2 g/dL g/dL (1.3-4.6) Lipase 30 U/L U/L (13-60) Imaging Data^: Other Imaging: Radiologist's impression: [facility] [id number] Scan ReportSigned with Addenda Patient: Meka Odom #: [id number]: 1960cct#:[id number]/Sex: 61 / FADM Date: 03/21/21[facility]: Sobeida Saul MD Ordering Provider/Ordering MD: Brett Reynoso MD Date of Service: 03/21/21 Procedure(s): CT abdomen pelvis w con* [id number] Accession Number(s): [id number] Report Number: [id number]/CT abdomen pelvis w con* [id number] THIS REPORT CONTAINS FINDINGS THAT MAY BE CRITICAL TO PATIENT CARE. BRETT REYNOSO has read and understood the report at 4:35 PM PROJECT MANAGEMENT PROFESSIONAL on 03/21/2021. The clinician has no questions. Radiation Dose CTDIVOL = (mGy): DLP = 1148.65 (mGy-cm) Addendum Dictated By: Agustín Teixeira MDAddendum Signed By: Agustín Teixeira MDSigned Date/Time:03/21/21 1636Addendum Cosigned By: PROCEDURE INFORMATION: Exam: CT Abdomen And Pelvis With Contrast Exam date and time: 03/21/2021 12:10 PM Age: 61 years old Clinical indication: Abdominal pain; Additional info: Eval sbo TECHNIQUE: Imaging protocol: Computed tomography of the abdomen and pelvis with contrast. Radiation optimization: All CT scans at this facility use at least one of these dose optimization techniques: automated exposure control; mA and/or kV adjustment per patient size (includes targeted exams where dose is matched to clinical indication); or iterative reconstruction. Contrast material: OMNI 300; Contrast volume: 95 ml; Contrast route: INTRAVENOUS (IV); COMPARISON: CT abdomen pelvis w con* [id number] 11/07/2020 3:18 PM RADIATION DOSE METRICS: Total DLP (mGy-cm): 1148.65 FINDINGS: Liver: Normal. No mass. Gallbladder and bile ducts: Stable cholecystectomy. Pancreas: Normal. No ductal dilation. Spleen: Normal. No splenomegaly. Adrenal glands: Normal. No mass. Kidneys and ureters: Normal. No hydronephrosis. Stomach and bowel: Stable partial gastrectomy with gastroduodenostomy. Interval appearance of bowel wall thickening in the duodenum and proximal jejunum consistent with proximal enteritis. Dilated loops of small bowel up to 4.4 cm in diameter in the distal jejunum and ileum with transition point in the right pelvis in the region of distal ileum consistent with high-grade small bowel obstruction. Appendix: No evidence of appendicitis. Intraperitoneal space: Unremarkable. No free air. No significant fluid collection. Vasculature: Unremarkable. No abdominal aortic aneurysm. Lymph nodes: Unremarkable. No enlarged lymph nodes. Urinary bladder: Unremarkable as visualized. Reproductive: Stable hysterectomy. Bones/joints: Unremarkable. No acute fracture. Soft tissues: Continued left para umbilical hernia containing segment of air-filled anterior wall of mid transverse colon. Previously this contained a loop of non incarcerated small bowel. The patient may be at risk for Laird's hernia. Axial series 2, images 42-47, sagittal series 601, image 38. Other findings: Transition point in the right pelvis is seen on axial series 2, images 65-67 and coronal series 602, images 28-29. CT/CT abdomen pelvis w con* [id number] IMPRESSION: 1. Stable partial gastrectomy with gastroduodenostomy. 2. Stable cholecystectomy. 3. Interval appearance of bowel wall thickening in the duodenum and proximal jejunum consistent with proximal enteritis. 4. Dilated loops of small bowel up to 4.4 cm in diameter in the distal jejunum and ileum with transition point in the right pelvis in the region of distal ileum consistent with high-grade small bowel obstruction. 5. Transition point in the right pelvis is seen on axial series 2, images 65-67 and coronal series 602, images 28-29. 6. Continued left para umbilical hernia containing segment of air-filled anterior wall of mid transverse colon. Previously this contained a loop of non incarcerated small bowel. The patient may be at risk for Laird's hernia. Axial series 2, images 42-47, sagittal series 601, image 38. Radiation Dose CTDIVOL = (mGy): DLP = 1148.65 (mGy-cm) Dictated By:Agustín Teixeira MDSigned By:Agustín Teixeira MDSigned Date/Time:03/21/21 1612DD/ 1210 Discharge Plan Discharge Patient Disposition: Admitted As Inpatient Admit Provider: Sobeida Saul Clinical Impression: Small bowel obstruction, Abdominal pain, Nausea and vomiting Condition: Stable Coding Level of Care Code ED Kaiako Kura [place] for Latia Harper
[2021-03-21] MEDS: ondansetron 2 mg/ML SDV 2 mL 4 MG IVP ×2 (13:14→18:30)
[2021-03-21] MEDS: famotidine 20 mg/2 mL INJ IVP (13:15)
[2021-03-21] MEDS: fentaNYL 50 mcg/mL INJ 2mL IVP ×2 (13:18→15:16)
[2021-03-21] MEDS: sodium chloride 0.9% 1,000 ML 999 ML IV (13:22)
[2021-03-21 13:26] LABS: Basophils % 0.4 %; Eosinophils # 0.1 10^3/uL (0.0-0.8); Eosinophils % 0.5 %; Hematocrit 43.4 % (37.0-47.0); Hemoglobin 13.3 g/dL (11.5-15.3); Lymphocytes # 0.4 10^3/uL (0.8-4.8); Mean Corpuscular HGB Conc 30.6 g/dL (30.0-36.0); Mean Corpuscular Hemoglobin 27.5 pg (28.0-34.0); Mean Corpuscular Volume 89.9 fl (81-99); Mean Platelet Volume 9.6 fL (7.4-10.4); Monocytes % 9.3 %; Neutrophils # 9.05 10^3/uL (1.8-7.7); Neutrophils % 85.5 %; Nucleated Red Blood Cells % 0 %; Platelet Count 313 10^3/cmm (130-400); Red Blood Count 4.83 10^6/uL (4.1-5.3); Red Cell Distribution Width 21.2 % (12.1-15.1); White Blood Count 10.6 10^3/uL (4.0-10.0)
[2021-03-21 13:47] LABS: Lactate (Lactic Acid level) 0.9 mmol/L (0.5-2.2)
[2021-03-21 13:55] LABS: Alanine Aminotransferase 10 U/L (0-33); Albumin Level 4.3 g/dL (3.5-5.2); Alkaline Phosphatase 85 IU/L (35-105); Anion Gap 19.8 (5-19); Aspartate Amino Transferase 13 U/L (0-32); Blood Urea Nitrogen 23 mg/dL (8-23); Calcium 8.9 mg/dL (8.5-10.5); Carbon Dioxide 18 mmol/L (22-29); Chloride 104 mmol/L (98-107); Globulin 2.2 g/dL (1.3-4.6); Glucose 107 mg/dL (65-115); Lipase 30 U/L (13-60); Osmolality Calculated 290 mOsm/kg (285-295); Potassium 3.8 mmol/L (3.5-5.1); Sodium 138 mmol/L (136-145); Total Bilirubin 0.3 mg/dL (0.15-1.2); Total Protein 6.5 g/dL (6.6-8.7)
[2021-03-21] MEDS: iohexol 300 mg/mL 100 mL Btl IV (14:29)
--- NOTE | 2021-03-21 14:57 | XRR_ITS ---
PROCEDURE INFORMATION: Exam: XR Abdomen Exam date and time: 03/21/2021 2:57 PM Age: 61 years old Clinical indication: Device placement; Gi device; Nasogastric tube; Additional info: Ng confirm TECHNIQUE: Imaging protocol: XR of the abdomen. Views: Frontal supine view of the abdomen. 1 View. COMPARISON: CT abdomen pelvis w con* [id number] 03/21/2021 2:21 PM FINDINGS: Tubes, catheters and devices: Enteric tube tip is over the fundus of the stomach (proximal stomach). On this CT scan there appears to be previous distal gastrectomy with gastroduodenostomy. Therefore the enteric tube tip could be in the distal portion of the remaining stomach, just proximal to the anastomosis. Gastrointestinal tract: Dilated loops of small bowel up to 4.4 cm in diameter consistent with small bowel obstruction in the distal ileum noted on CT scan. Organs: Residual contrast in the renal collecting system and urinary bladder bilaterally. Bones/joints: Unremarkable. Soft tissues: The possible Laird's hernia involving the anterior wall of transverse colon in the left paraumbilical hernia is not visualized on today's KUB. XR/XR KUB [id number] IMPRESSION: 1. Enteric tube tip is over the fundus of the stomach (proximal stomach). 2. On this CT scan there appears to be previous distal gastrectomy with gastroduodenostomy. Therefore the enteric tube tip could be in the distal portion of the remaining stomach, just proximal to the anastomosis. 3. Dilated loops of small bowel up to 4.4 cm in diameter consistent with small bowel obstruction in the distal ileum noted on CT scan. 4. The possible Laird's hernia involving the anterior wall of transverse colon in the left paraumbilical hernia is not visualized on today's KUB. Radiation Dose CTDIVOL = (mGy): DLP = (mGy-cm)
[2021-03-21 15:18] VITALS: PULSE 105; RESP 15; O2SAT 98
--- NOTE | 2021-03-21 15:47 | P.HP_ITS ---
Providers/Chief Complaint Admitting Physician: Sobeida Saul MD Primary Care Provider: Thanh Meyer MD Chief Complaint: Abdominal Swelling History of Present Illness Preeti Odom is a 61 year old female who carries history of iron deficiency anemia requiring multiple iron transfusions(Chronic anemia with recurrent episodes of iron deficiency with an extensive history of gastrointestinal disease, including GERD, history of perforated ulcer. Her prior surgeries include partial gastrectomy and partial small bowel resection with Billroth I anastomosis and partial colectomy in 2010) has a port A cath, in September 2020 which showed nonerosive gastritis and gastrojejunal anastomosis that was patent. Colonoscopy showed internal hemorrhoids and diverticulosis, attends behavioral health clinic for her anxiety came in with chief complaint of worsening abdominal pain. Patient is stating that she recently celebrated her 61th birthday, and last 1 week she started noticing abdominal bloating and distention, it gradually got worse, and today she started experiencing worsening abdominal pain mostly in right lower quadrant area which was associated with multiple episode of emesis. Her last bowel movement was 2 days ago. She mostly gets bowel movement on alternate days. Her bowel movements were alternate between solid to semisolid and liquid. Last month she finished ciprofloxacin and Flagyl course for enteritis. She is denying fever, recent diarrhea. Today she started experiencing multiple episode of emesis with excruciating 9/10 quality right lower quadrant pain which prompted her to visit the ER. In the ER she was diagnosed with small bowel obstruction, distended loops of bowel mild leukocytosis, lactic acid normal, she is hemodynamically stable, NG t ube was displaced twice because of excessive coughing and retching She has tachypnea and tachycardia and mild leukocytosis which I believe is secondary to emesis, stress response, sepsis is likely diagnosis with enteritis CT/CT abdomen pelvis w con* [id number] IMPRESSION: 1. Stable partial gastrectomy with gastroduodenostomy. 2. Stable cholecystectomy. 3. Interval appearance of bowel wall thickening in the duodenum and proximal jejunum consistent with proximal enteritis. 4. Dilated loops of small bowel up to 4.4 cm in diameter in the distal jejunum and ileum with transition point in the right pelvis in the region of distal ileum consistent with high-grade small bowel obstruction. 5. Transition point in the right pelvis is seen on axial series 2, images 65-67 and coronal series 602, images 28-29. 6. Continued left para umbilical hernia containing segment of air-filled anterior wall of mid transverse colon. Previously this contained a loop of non incarcerated small bowel. The patient may be at risk for Laird's hernia. Axial series 2, images 42-47, sagittal series 601, image 38. Review of Systems Const: Reports: body aches and fatigue; Denies: fever(s) or chills Eyes: Denies: change in vision ENMT: Denies: throat pain Card: Denies: chest pain Resp: Denies: dyspnea GI: Reports: abdominal pain, nausea and vomiting : Denies: flank pain Musc: Denies: neck pain Skin/Breast: Denies: rash Neuro: Denies: headache(s) Psych: Reports: anxiety Endo: Denies: polyuria Vadim/Lymph: Denies: easy bruising All/Imm: Denies: urticaria Medications/Allergies Home Medications Medication Instructions Recorded Confirmed Last Taken Type diphenhydramine HCl 25 mg capsule 25 - 50 mg PO DAILY PRN 07/19/19 03/21/21 10/12/20 History duloxetine 60 mg capsule,delayed 60 mg PO DAILY@07/19/19 03/21/21 03/20/21 History release montelukast 10 mg tablet 10 mg PO DAILY@07/19/19 03/21/21 03/20/21 History tizanidine 4 mg PO Q8H PRN 10/15/19 03/21/21 10/13/20 History kpwgvzwrpih-gyv-fmfcxxxyw-hrb 1 tab PO DAILY@10/19/19 03/21/21 03/20/21 History 149-hyalur 500 mg-500 mg-66.7 mg tablet hydrochlorothiazide 12.5 mg tablet 25 mg PO DAILY@10/19/19 03/21/21 03/20/21 History loratadine 10 mg tablet 10 mg PO DAILY@10/19/19 03/21/21 03/20/21 History potassium chloride 10 mEq 10 meq PO BID@,10/19/19 03/21/21 03/20/21 History tablet,extended release amitriptyline 50 mg PO DAILY@05/13/20 03/21/21 03/20/21 History celecoxib [Celebrex] 100 mg PO BID@08,20 05/13/20 03/21/21 03/20/21 History ondansetron HCl 4 mg PO Q4H PRN 05/13/20 03/21/21 10/12/20 History tramadol 50 mg tablet 50 mg PO BID PRN 08/05/20 03/21/21 10/13/20 History pantoprazole 40 mg PO BIDWMEAL #0 tab 10/14/20 03/21/21 03/20/21 Rx nitrofurantoin 100 mg PO BID #60 cap 12/16/20 03/21/21 03/20/21 Rx monohydrate/macrocrystals 100 mg capsule bupropion HCl 200 mg tablet,12 hr 200 mg PO BID tab 02/24/21 03/21/21 03/20/21 History sustained-release Allergies Allergy/AdvReac Type Severity Reaction Status Date / Time morphine AdvReac MIGRAINE Verified 03/21/21 11:23 PFSH Acute PFSH: Medical History Chronic back pain Constipation Cystitis cystica Depression Fibromyalgia Iron deficiency anemia Major depressive disorder, recurrent, mild Osteoporosis Peptic ulcer disease Status post extracorporeal shock wave therapy URETERAL STENT PLACEMENT Undifferentiated somatoform disorder Surgical History H/O bilateral breast reduction surgery H/O bilateral oophorectomy H/O colonoscopy (10/14/20) Diverticulosis H/O rhinoplasty H/O right knee surgery H/O: hysterectomy For fibroid and endometriosis History of appendectomy History of bone marrow biopsy History of partial gastrectomy Secondary to peptic ulcer disease, perforated ulcer Hx of cholecystectomy Hx of endoscopy (10/14/20) Port-A-Cath in place Family History Father , IN HIS 50'S No problems noted. Mother , AT AGE 78 Cancer OVARIAN Other Hypertension Psychiatric illness Social History Smoking and tobacco status: former smoker Alcohol intake: never Adopted: No Caregiver/support person: No Housing: House Marital status: Current occupational status: disabled History of recent travel: No Vitals/I&O/Wt Last Vital Signs Temp 96.7 F L 03/21/21 11:23 Pulse 105 H 03/21/21 15:18 Resp 15 03/21/21 15:18 BP 121/87 03/21/21 11:23 Pulse Ox 98 03/21/21 15:18 Weight last 48 hrs Weight 57.153 kg Physical Exam Narrative: EXAM NARRATIVE: middle-aged female Was complaining abdominal pain and cramps NG was displaced Saturating well on room air Abdomen is soft no guarding or rigidity however tender to palpate especially ri ght lower quadrant Hypoactive bowel sounds No active emesis S1, S2 sinus tachycardia Clinically looks dehydrated Nonfocal neuro exam , PERRLA Appropriate mood and affect Right Port-A-Cath for iron and blood transfusion Data : 03/21/21 13:00 03/21/21 13:00 A&P Assessment and plan (1) Small bowel obstruction: Status: Acute (2) Abdominal pain: Status: Acute (3) Nausea and vomiting: Status: Acute (4) Enteritis: Status: Acute (5) Right lower quadrant pain: Status: Acute (6) Iron deficiency anemia: Status: Acute Additional A&P Information Small bowel obstruction Sepsis with enteritis Plan NG placement to low intermittent suction N.p.o. Dr. Simpson consulted Start D5 LR Start Zosyn No signs of peritonitis, lactic acid is normal mild leukocytosis with tachypnea and tachycardia Normal lipase Left periumbilical hernia with segment of air-filled anterior wall of mid transverse colon Serial exam and monitoring Full code DVT prophylaxis avoid in case she will go for intervention N.p.o. Iron def anemia with history of recurrent blood transfusion has Port-A-Cath, hemoglobin stable Attestations Medical Necessity Statement*: More than 2 midnights anticipated Time Spent in Patient Care: Greater than 35 minutes Coding Level of Care Code Acute Computer Systems Engineer for g Fwd Diagnoses Small bowel obstruction K56.609 Abdominal pain R10.9 Nausea and vomiting R11.2 Enteritis K52.9 Right lower quadrant pain R10.31 Iron deficiency anemia D50.9
[2021-03-21 15:59] VITALS: BP 126/60; PULSE 102; RESP 20; O2SAT 98
[2021-03-21 18:00] VITALS: BP 144/83; PULSE 90; RESP 16; TEMP 36.8; O2SAT 97
[2021-03-21 20:00] VITALS: BP 163/81; PULSE 114; RESP 18; TEMP 36.9; O2SAT 91
[2021-03-21 20:29] VITALS: RESP 20
[2021-03-21] MEDS: morphine 4 mg/mL SDV 1 mL 2 MG IVP (20:29)
[2021-03-21] MEDS: piperacillin-tazobactam 3.375 GM in sodium chloride 0.9% (plus) 50 ML IV (20:45)
[2021-03-21] MEDS: dextrose 5%-lactated ringers 1,000 ML 75 ML IV (21:20)
[2021-03-21] MEDS: ketorolac 30 mg/mL INJ 15 MG IVP (21:58)
[2021-03-22] VITALS (31 sets, daily range): BP systolic 120–161; BP diastolic 61–91; PULSE 80–115; RESP 14–18; TEMP 36.2–36.9; O2SAT 90–98
[2021-03-22] MEDS: ondansetron 2 mg/ML SDV 2 mL 4 MG IVP ×4 (00:46→23:07)
[2021-03-22] MEDS: HYDROmorphone 1 mg/mL INJ 1 mL 0.4 MG IVP ×2 (00:46→05:58)
[2021-03-22] MEDS: piperacillin-tazobactam 3.375 GM in sodium chloride 0.9% (plus) 50 ML IV ×3 (05:05→21:16)
[2021-03-22 05:26] LABS: Basophils % 0.8 %; Eosinophils # 0.1 10^3/uL (0.0-0.8); Eosinophils % 2.6 %; Hematocrit 37.7 % (37.0-47.0); Hemoglobin 11.5 g/dL (11.5-15.3); Lymphocytes # 0.5 10^3/uL (0.8-4.8); Lymphocytes % 11.8 %; Mean Corpuscular HGB Conc 30.5 g/dL (30.0-36.0); Mean Corpuscular Volume 91.7 fl (81-99); Mean Platelet Volume 9.9 fL (7.4-10.4); Monocytes # 1.1 10^3/uL (0.2-0.9); Monocytes % 26.9 %; Neutrophils # 2.26 10^3/uL (1.8-7.7); Neutrophils % 57.9 %; Nucleated Red Blood Cells % 0 %; Platelet Count 267 10^3/cmm (130-400); Red Blood Count 4.11 10^6/uL (4.1-5.3); Red Cell Distribution Width 21.3 % (12.1-15.1); White Blood Count 3.9 10^3/uL (4.0-10.0)
[2021-03-22 05:34] LABS: Anion Gap 14.4 (5-19); Blood Urea Nitrogen 22 mg/dL (8-23); Calcium 8.4 mg/dL (8.5-10.5); Carbon Dioxide 24 mmol/L (22-29); Chloride 107 mmol/L (98-107); Glomerular Filtration Rate 125.9 mL/min (90-130); Glucose 141 mg/dL (65-115); Osmolality Calculated 298 mOsm/kg (285-295); Potassium 4.4 mmol/L (3.5-5.1); Sodium 141 mmol/L (136-145)
--- NOTE | 2021-03-22 08:16 | P.CONIM_ITS ---
Providers/Reason For Consult Consulting Physician/Specialty*: General Surgery Tiago Simpson MD Reason for Consult*: Small bowel obstruction. Attending Physician: Sobeida Saul MD Primary Care Provider: Thanh Meyer MD History of Present Illness History of Present Illness Preeti Odom is a 61 year old female admitted yesterday after presenting to the emergency room with a 1 week history of worsening right lower quadrant abdominal pain. She says the right lower quadrant pain has actually been with her most of the time over the past year, but has never been this bad. It seems to affect her bowel habits at times. She take stool softeners and has some alternating bowel habits as a result. She says last Tuesday she returned from [place] and was having the right lower quadrant pain. 4 days ago she had increased abdominal swelling and abdominal pain. This ended up getting even worse 2 days ago. She said yesterday she woke at 5 AM and had intractable vomiting and eventually came to the emergency department. There has been no evidence of hematemesis. Her last bowel movement and flatus were 2 days ago and she has not passed anything since. Imaging in the emergency department revealed evidence of a small bowel obstruction. An nasogastric tube was passed. I was aware of the patient's admission from the emergency room but was told the hospitalist team might want you to follow. I became aware of the official consultation this morning. The patient says that she has seen every doctor I know to try to figure out why she is having right lower quadrant pain. She had undergone endoscopy this summer by Dr. Biswas. She was under the impression that her diverticulosis may be causing her pain. The patient says she is feeling better this morning but still is not passing any flatus and has had pain medication. She continues to have intermittent cramping in the right lower quadrant that will make her wince during our interview. Review of Systems Const: Denies: fever(s) GI: Reports: abdominal pain, nausea and vomiting; Denies: hematemesis, change in bowel habits or melena Psych: Reports: anxiety and depression Meds/Allergies Home Medications and Allergies Home Medications Medication Instructions Recorded Confirmed Last Taken Type diphenhydramine HCl 25 mg capsule 25 - 50 mg PO DAILY PRN 07/19/19 03/21/2109/30 History duloxetine 60 mg capsule,delayed 60 mg PO DAILY@08 07/19/19/20/21 11/19/21 History release montelukast 10 mg tablet 10 mg PO DAILY@07/19/19 03/21/21 03/20/21 History tizanidine 4 mg PO Q8H PRN 10/15/19 03/21/21 10/13/20 History pzovgdvrsay-psc-snutczsuv-hrb 1 tab PO DAILY@10/19/19 03/21/21 03/20/21 History 149-hyalur 500 mg-500 mg-66.7 mg tablet hydrochlorothiazide 12.5 mg tablet 25 mg PO DAILY@10/19/19 03/21/21 03/20/21 History loratadine 10 mg tablet 10 mg PO DAILY@10/19/19 03/21/21 03/20/21 History potassium chloride 10 mEq 10 meq PO BID@10/19/19 03/21/21 03/20/21 History tablet,extended release amitriptyline 50 mg PO DAILY@05/13/20 03/21/21 03/20/21 History celecoxib [Celebrex] 100 mg PO BID@05/13/20 03/21/21 03/20/21 History ondansetron HCl 4 mg PO Q4H PRN 05/13/20 03/21/21 10/12/20 History tramadol 50 mg tablet 50 mg PO BID PRN 08/05/20 03/21/21 10/13/20 History pantoprazole 40 mg PO BIDWMEAL #0 tab 10/14/20 03/21/21 03/20/21 Rx nitrofurantoin 100 mg PO BID #60 cap 12/16/20 03/21/21 03/20/21 Rx monohydrate/macrocrystals 100 mg capsule bupropion HCl 200 mg tablet,12 hr 200 mg PO BID tab 02/24/21 03/21/21 03/20/21 History sustained-release Allergies Allergy/AdvReac Type Severity Reaction Status Date / Time morphine AdvReac MIGRAINE Verified 03/21/21 11:23 Current Medications Current Medications Generic Name Dose Route Start Last Admin Trade Name Freq PRN Reason Stop Dose Admin Hydromorphone HCl 0.4 mg 03/21/21 20:52 03/22/21 05:58 Hydromorphone 1 Mg/Ml Inj 1 Ml IVP 0.4 mg Q4H PRN Administration SEVERE pain Piperacillin Sod/Tazobactam 50 mls @ 12.5 mls/hr 03/21/21 20:00 03/22/21 05:05 Sod 3.375 gm/ Sodium Chloride IV 12.5 mls/hr Q8H GREG Administration Protocol Ondansetron HCl 4 mg 03/21/21 18:04 03/22/21 00:46 Ondansetron 2 Mg/Ml Sdv 2 Ml IVP 4 mg Q6H PRN Administration NAUSEA AND VOMITING PFSH Acute PFSH: Medical History (Updated 03/22/21 @ 08:22 by Tiago Simpson MD) Chronic back pain Constipation Cystitis cystica Depression Diverticulosis Fibromyalgia Iron deficiency anemia Major depressive disorder, recurrent, mild Osteoporosis Peptic ulcer disease Status post extracorporeal shock wave therapy URETERAL STENT PLACEMENT Undifferentiated somatoform disorder Surgical History (Updated 03/22/21 @ 08:23 by Tiago Simpson MD) H/O bilateral breast reduction surgery H/O colonoscopy (10/14/20) Diverticulosis H/O rhinoplasty Nasal fracture H/O right knee surgery H/O: hysterectomy For fibroid and endometriosis / BSO History of appendectomy History of bone marrow biopsy History of partial gastrectomy Secondary to peptic ulcer disease, perforated ulcer / partial transverse colectomy with reanastomosis ([place], [place]) History of tonsillectomy Hx of cholecystectomy Port-A-Cath in place Placed for transfusions for chronic anemia S/P LASIK surgery of both eyes Family History Father , IN HIS 50'S No problems noted. Mother , AT AGE 78 Cancer OVARIAN Other Hypertension Psychiatric illness Social History Smoking and tobacco status: former smoker Alcohol intake: never Adopted: No Caregiver/support person: No Housing: House Marital status: Current occupational status: disabled History of recent travel: No Vitals/I&O/Wt Last Vital Signs Temp 98.1 F 03/22/21 07:41 Pulse 89 03/22/21 07:41 Resp 17 03/22/21 07:41 BP 131/77 03/22/21 07:41 Pulse Ox 94 11/21/21 07:41 03/21/21 03/22/21 03/22/21 22:59 06:59 14:59 Intake Total 1000 / 1050 50 / 1050 Balance 1000 / 1050 50 / 1050 Weight last 48 hrs Weight 126 lb Physical Exam Narrative: EXAM NARRATIVE: The patient was encountered in her hospital room. She does not appear to be in any acute distress. The nasogastric tube is draining some bilious material. The pupils seem equal. No carotid bruits are heard. The lungs are clear anteriorly. The heart is regular. The abdomen seems fairly soft but there are very few bowel sounds. There is a well-healed midline incision. She has moderate tenderness in the right lower quadrant which is fairly focal. She has some very mild scattered abdominal tenderness otherwise, but does exhibit some voluntary guarding. No obvious masses are palpated. The extremities reveal no edema. Neurologically the patient appears to be grossly intact. Data Imaging^: CT Abd/Pel: Radiologist's impression: CT abdomen/pelvis 03/21/2021 IMPRESSION: 1. Stable partial gastrectomy with gastroduodenostomy. 2. Stable cholecystectomy. 3. Interval appearance of bowel wall thickening in the duodenum and proximal jejunum consistent with proximal enteritis. 4. Dilated loops of small bowel up to 4.4 cm in diameter in the distal jejunum and ileum with transition point in the right pelvis in the region of distal ileum consistent with high-grade small bowel obstruction. 5. Transition point in the right pelvis is seen on axial series 2, images 65-67 and coronal series 602, images 28-29. 6. Continued left para umbilical hernia containing segment of air-filled anterior wall of mid transverse colon. Previously this contained a loop of non incarcerated small bowel. A&P Assessment and plan (1) Small bowel obstruction: CT reviewed. I agree with the assessment of a small bowel obstruction. It appears to me as if this has probably been somewhat of a chronic problem given the fecalization of some of the distal small bowel contents in the right side of the pelvis. Her history of having pain in the right lower quadrant for a year would be consistent with this. We discussed conservative methods of management for this. I told her that even if she is fortunate enough to get better with conservative management alone, I am afraid this is going to be an ongoing issue for her, having been a worsening issue over the past year. We discussed surgical goals and details, and I told her I would certainly be willing to offer her surgery if she would like to pursue that route. While I do not think it is an emergency today, I just do not see this problem getting better and not being a factor in the future. Surgical risks of bleeding, infection, internal organ injury, future formation of more adhesions, etc. were all gone over. The patient seems to understand and would like to proceed with exploration. I will make the necessary arrangements today. Status: Acute (2) Incisional hernia: This is to the left side of the umbilicus and has been noted on multiple imaging studies. It occasionally will have some loops of bowel associated with it, although not always. I told the patient that we could likely repair this at the same time if we end up pursuing surgery. She is agreeable. Status: Acute Consult Attestations Medical Necessity Statement: See admitting service's notation. Coding Level of Care Code Acute Building Services Engineer for [facility] Diagnoses Small bowel obstruction K56.609 Incisional hernia K43.2
--- NOTE | 2021-03-22 09:03 | ANES.PREANE2 ---
Pre-Anesthetic Assessment Pre-Anesthetic Assessment: Height/Weight: Height 1.65 m Weight 57.153 kg Temp Pulse Resp BP Pulse Ox 98.1 F 89 17 131/77 94 03/22/21 07:41 03/22/21 07:41 03/22/21 07:41 03/22/21 07:41 03/22/21 07:41 Preop Diagnosis: panendoscopy Proposed Procedure: Operation Date: 03/22/21 09:00 Proposed Procedures p Laparoscopic Small Bowel Obstruction Relief(Not Applicable) - Tiago Simpson MD Was Beta Ольга taken within 24 hours: N/A Was Clonidine taken within 24 hours: N/A Last intake: occasional ice chips, has NG tube in place Social: Social History: Alcohol (few glasses of wine a week) and No tobacco Comment: former smoker Exam: Pre-Anes Outpt Exam: alert and oriented x 3 Airway: Submandibular: WNL Cervical ROM: WNL MP: 1 Dentition: False History/ROS: No significant history except as noted Pulmonary: Pulmonary: None reported CV/HEM: CV/HEM: Anemia, HTN and None reported : Comments: kidney stones Hepatic: Hepatic: None reported GI: GI: GERD (controlled) Metabolic: Metabolic: None reported Musc/skel: Musc/skel: Fibromyalgia and Lower Back Pain Neuropsych: Neuropsych: Anxiety and Depression Anesthetic Plan: ASA status: 3E Anesthesia: Anesthesia Evaluation and General Risk of > 500 ml blood loss (7ml/kg in children): No Meds/Allergies Current Medications: Current Medications Generic Name Dose Route Start Last Admin Trade Name Freq PRN Reason Stop Dose Admin Hydromorphone HCl 0.4 mg 03/21/21 20:52 03/22/21 05:58 Hydromorphone 1 Mg/Ml Inj 1 Ml IVP 0.4 mg Q4H PRN Administration SEVERE pain Piperacillin Sod/T azobactam 50 mls @ 12.5 mls /hr 03/21/21 20:00 03/22/21 05:05 Sod 3.375 gm/ So dium Chloride IV 12.5 mls/hr Q8H GREG Administration Protocol Ondansetron HCl 4 mg 03/21/21 18:04 03/22/21 00:46 Ondansetron 2 Mg /Ml Sdv 2 Ml IVP 4 mg Q6H PRN Administration NAUSEA AND VOMITI NG PFSH Anesthesia PFSH: Medical History (Updated 03/22/21 @ 08:22 by Tiago Simpson MD) Chronic back pain Constipation Cystitis cystica Depression Diverticulosis Fibromyalgia Iron deficiency anemia Major depressive disorder, recurrent, mild Osteoporosis Peptic ulcer disease Status post extracorporeal shock wave therapy URETERAL STENT PLACEMENT Undifferentiated somatoform disorder Surgical History (Updated 03/22/21 @ 08:23 by Tiago Simpson MD) H/O bilateral breast reduction surgery H/O colonoscopy (10/14/20) Diverticulosis H/O rhinoplasty Nasal fracture H/O right knee surgery H/O: hysterectomy For fibroid and endometriosis / BSO History of appendectomy History of bone marrow biopsy History of partial gastrectomy Secondary to peptic ulcer disease, perforated ulcer / partial transverse colectomy with reanastomosis ([place], [place]) History of tonsillectomy Hx of cholecystectomy Port-A-Cath in place Placed for transfusions for chronic anemia S/P LASIK surgery of both eyes Family History Father , IN HIS 50'S No problems noted. Mother , AT AGE 78 Cancer OVARIAN Other Hypertension Psychiatric illness Social History Smoking and tobacco status: former smoker Alcohol intake: never Adopted: No Caregiver/support person: No Housing: House Marital status: Current occupational status: disabled History of recent travel: No Data Anesthesia CBC & Chem 7: 03/22/21 04:58 03/22/21 04:58 Other Labs: Laboratory Results - last 48 hr 03/21/21 03/21/21 03/21/21 13:00 13:00 13:00 WBC 10.6 H RBC 4.83 Hgb 13.3 Hct 43.4 MCV 89.9 MCH 27.5 L MCHC 30.6 RDW 21.2 H Plt Count 313 MPV 9.6 Neut % (Auto) 85.5 Lymph % (Auto) 4.0 [place] % (Auto) 9.3 Eos % (Auto) 0.5 Baso % (Auto) 0.4 Neut # (Auto) 9.05 H Lymph # (Auto) 0.4 L [place] # (Auto) 1.0 H Eos # (Auto) 0.1 Baso # (Auto) 0.0 Nucleated RBC % (auto) 0 Nucleated RBCs # 0.0 Sodium 138 Potassium 3.8 Chloride 104 Carbon Dioxide 18 L Anion Gap 19.8 H BUN 23 Creatinine 0.6 GFR Calculation 102.0 Glucose 107 Calculated Osmolality 290 Lactate 0.9 Calcium 8.9 Magnesium Total Bilirubin 0.3 AST 13 ALT 10 Alkaline Phosphatase 85 Total Protein 6.5 L Albumin 4.3 Globulin 2.2 Lipase 30 03/22/21 03/22/21 03/22/21 04:58 04:58 04:58 WBC 3.9 L RBC 4.11 Hgb 11.5 Hct 37.7 MCV 91.7 MCH 28.0 MCHC 30.5 RDW 21.3 H Plt Count 267 MPV 9.9 Neut % (Auto) 57.9 Lymph % (Auto) 11.8 [place] % (Auto) 26.9 Eos % (Auto) 2.6 Baso % (Auto) 0.8 Neut # (Auto) 2.26 Lymph # (Auto) 0.5 L [place] # (Auto) 1.1 H Eos # (Auto) 0.1 Baso # (Auto) 0.0 Nucleated RBC % (auto) 0 Nucleated RBCs # 0.0 Sodium 141 Potassium 4.4 Chloride 107 Carbon Dioxide 24 Anion Gap 14.4 BUN 22 Creatinine 0.5 GFR Calculation 125.9 Glucose 141 H Calculated Osmolality 298 H Lactate 1.0 Calcium 8.4 L Magnesium 2.0 Total Bilirubin AST ALT Alkaline Phosphatase Total Protein Albumin Globulin Lipase Cardiac Studies: No Data to Display
--- NOTE | 2021-03-22 10:31 | P.OP_ITS ---
Operative Report Date of procedure: March 22, 2021 Pre-op Diagnosis: 1. Small bowel obstruction.2. Incisional hernia. Post-op Findings: 1. Small bowel obstruction secondary to apparent small bowel stricture. 2. Incisional hernia. Procedure Done: 1. Exploratory laparotomy with segmental small bowel resection. 2. Repair of incisional hernia. Specimens removed/disposition: Segmental small bowel resection, suture on distal end. Surgeon: Tiago Simpson Anesthesia: General Estimated blood loss (mL): 25 Complications: None. Condition: stable Disposition: PACU Procedure: The patient was brought to the operating room and was placed in a supine position on the operating room table. General endotracheal anesthesia was induced. A Pope catheter was inserted by nursing. The patient already had a nasogastric tube in place. The abdomen was prepped and draped in a sterile fashion. The patient's previous midline scar was reopened from a level just above the umbilicus down to the lower abdomen. Cautery was used to divide the subcutaneous tissue and the midline fascia was incised. The peritoneal cavity was carefully entered. The patient had no adhesions anteriorly to the lower midline scar but she did have some adhesions associated with the presence of the hernia up around the umbilical region. There was a small amount of straw-colore d fluid in the abdomen that was suctioned out. The patient's small bowel was clearly dilated. The patient had a couple hernia defects up around the umbilicus and the fascia was simply opened through these, up to the point where the fascia was clearly intact. Some omental adhesions were taken down and the fascial edges were freshened up. Attention was then directed to the lower abdomen where the small bowel was easily eviscerated. The patient had what appeared to be a stricture in the distal small bowel but it was difficult to tell if this had been a mechanical source of obstruction from an external source versus an obstructive process from this loop of bowel being stuck down in the cul-de-sac in the form of a small internal hernia. There were no clear adhesions that were attached to the bowel anywhere but there was clearly fecalized contents for approximately 9?12 inches proximal to this in the ileum. The patient had a few slightly enlarged lymph nodes in the mesentery but they all appeared reactive and somewhat edematous as opposed being from a neoplastic process. No obvious mass was palpated at the area of the small bowel where it appeared to to narrow. The decision was made to perform a segmental small bowel resection. The bowel was divided distal to the narrowing with a LONNIE 55 stapler. The small bowel was divided proximal to the area where the fecalized contents were contained with another LONNIE 55 stapler. The intervening mesentery was then divided using the Voyant energy device. Sutures of 2-0 Vicryl were also used for stick ties on obvious vessels. A suture was placed on the distal end of the segmental small bowel segment for pathological orientation and the specimen was handed off. The remaining small bowel was returned to the abdomen and extensive irrigation was then carried out. Palpation around the abdomen revealed no other obvious abnormalities. The 2 ends of the small bowel were brought out adjacent to each other in preparation for an anastomosis. The 2 limbs were sewn to each other with some stay sutures of 3-0 Vicryl and then a an enterotomy was made near the staple line on either limb of bowel. The remaining contents were suctioned out and then an arm of a LONNIE 55 stapler was passed down either limb of bowel and was fired, creating a common opening between the 2 limbs of bowel. The staple lines were transposed and the common opening on the end was closed using a TX 60 stapler, creating a functional end-to-end anastomosis. A suture of 3-0 Vicryl was placed at the proximal end of the staple line to take tension off of the anastomosis. The small mesenteric window was closed using a running suture of 3-0 Vicryl. The anastomosis was palpably patent and the bowel appeared to be in good condition throughout. The abdomen was once again extensively irrigated with saline. Attention was directed towards closure. The midline fascia was closed using a running looped suture of #1 PDS, closing the hernia defects by the umbilicus in the process. The subcutaneous tissue was irrigated and the skin was approximated using skin jesus. A sterile dressing was applied and the patient was taken to the recovery area in stable condition.
[2021-03-22] MEDS: fentaNYL 50 mcg/mL INJ 2mL IVP ×2 (10:42→10:52)
--- NOTE | 2021-03-22 11:17 | ANE.PACU2 ---
Inpatient post-anesthesia follow up: Airway intact: Yes Vital signs: Temperature 97.1 F Pulse Rate 89 Respiratory Rate 16 Blood Pressure 128/69 Pulse Oximetry 94 Oxygen Delivery Me thod Nasal Cannula Oxygen Flow Rate 3 Fraction of Inspir ed Oxygen Hydration adequate: Yes Nausea and vomiting: No Pain level: 2 Mental status: Baseline
[2021-03-22] MEDS: HYDROmorphone 1 mg/mL INJ 1 mL 0.25 MG IVP (11:24)
[2021-03-22] MEDS: ketorolac 30 mg/mL INJ 15 MG IVP ×2 (13:03→23:10)
[2021-03-22] MEDS: D5-NS 0.45% + KCL 20 mEq 20 MEQ/1,000 ML BAG 100 MEQ IV ×2 (13:29→23:13)
[2021-03-22] MEDS: HYDROmorphone 1 mg/mL INJ 1 mL IVP ×3 (13:54→21:12)
--- NOTE | 2021-03-22 15:20 | PM.PN ---
Subjective Subjective: Interval history: small bowel obstruction secondary to small bowel stricture status post exploratory laparotomy with segmental bowel resection and repair of incisional hernia Vitals/I&O/Wt Last Vital Signs Temp 97.9 F 03/22/21 14:38 Pulse 105 H 03/22/21 14:38 Resp 18 03/22/21 14:38 BP 123/77 03/22/21 14:38 Pulse Ox 92 03/22/21 14:38 03/22/21 03/22/21 03/22/21 06:59 14:59 22:59 Intake Total 50 / 1050 1430 / 1430 Output Total 925 / 925 Balance 50 / 1050 505 / 505 Weight last 48 hrs Weight 57.153 kg Physical Exam Narrative: EXAM NARRATIVE: Clinically looks dehydrated NG to low intermittent suction Hemodynamically stable S1, S2 variable Abdominal tenderness right lower quadrant Mildly bloated abdomen Lower symmetry no edema Awake alert nonfocal exam Urinary Catheter Management^: Pope Latex: Cath Placed During This Visit: yes Urinary Catheter Date of Insertion: 03/22/21 Urinary Catheter Time of Insertion: 09:30 Data : 03/22/21 04:58 03/22/21 04:58 A&P Assessment and plan (1) Incisional hernia: Status: Acute (2) Enteritis: Status: Acute (3) Small bowel obstruction: Status: Acute (4) Abdominal pain: Status: Acute (5) Nausea and vomiting: Status: Acute Additional A&P Information Enteritis SBO Status post surgery postop day 0, please see details from operative notes We will follow up with surgery recommendations Continue IV fluids Opioids for analgesia Full code N.p.o. Attestations Medical Necessity Statement*: Postop day 0 Time Spent in Patient Care: less than 15 minutes Coding Level of Care Code Acute Order Entry Technician for [facility] Fwd Diagnoses Incisional hernia K43.2 Enteritis K52.9 Small bowel obstruction K56.609 Abdominal pain R10.9 Nausea and vomiting R11.2
[2021-03-22] MEDS: levalbuterol 0.63 mg/3 mL Neb INHALATION ×2 (17:03→20:55)
[2021-03-22] MEDS: heparin 5,000 unit/mL INJ 1 mL 5000 UNIT SUBCUT (23:11)
[2021-03-23] VITALS (14 sets, daily range): BP systolic 124–143; BP diastolic 73–85; PULSE 86–94; RESP 16–20; TEMP 36.6–36.9; O2SAT 93–98
[2021-03-23] MEDS: HYDROmorphone 1 mg/mL INJ 1 mL IVP ×6 (00:56→23:02)
[2021-03-23 03:55] LABS: Basophils % 0.7 %; Eosinophils % 0.2 %; Hematocrit 34.4 % (37.0-47.0); Hemoglobin 10.3 g/dL (11.5-15.3); Lymphocytes # 0.5 10^3/uL (0.8-4.8); Lymphocytes % 10.9 %; Mean Corpuscular HGB Conc 29.9 g/dL (30.0-36.0); Mean Corpuscular Hemoglobin 27.8 pg (28.0-34.0); Mean Corpuscular Volume 92.7 fl (81-99); Mean Platelet Volume 10.3 fL (7.4-10.4); Monocytes # 1.1 10^3/uL (0.2-0.9); Monocytes % 23.3 %; Neutrophils # 2.91 10^3/uL (1.8-7.7); Neutrophils % 64.7 %; Nucleated Red Blood Cells % 0 %; Platelet Count 248 10^3/cmm (130-400); Red Blood Count 3.71 10^6/uL (4.1-5.3); Red Cell Distribution Width 20.9 % (12.1-15.1); White Blood Count 4.5 10^3/uL (4.0-10.0)
[2021-03-23] MEDS: piperacillin-tazobactam 3.375 GM in sodium chloride 0.9% (plus) 50 ML IV ×3 (04:19→20:06)
[2021-03-23 04:21] LABS: Anion Gap 13.7 (5-19); Blood Urea Nitrogen 15 mg/dL (8-23); Calcium 7.8 mg/dL (8.5-10.5); Carbon Dioxide 23 mmol/L (22-29); Chloride 108 mmol/L (98-107); Glomerular Filtration Rate 162.8 mL/min (90-130); Glucose 142 mg/dL (65-115); Osmolality Calculated 295 mOsm/kg (285-295); Potassium 3.7 mmol/L (3.5-5.1); Sodium 141 mmol/L (136-145)
[2021-03-23 04:29] LABS: Creatinine Clr Calc Pharmacy 134.7278
[2021-03-23 04:36] LABS: Slide Review Slide Review Perform
[2021-03-23] MEDS: levalbuterol 0.63 mg/3 mL Neb INHALATION ×3 (08:05→15:51)
[2021-03-23] MEDS: pantoprazole 40 mg SDV IVP (08:52)
[2021-03-23] MEDS: ketorolac 30 mg/mL INJ 15 MG IVP ×2 (08:52→15:15)
[2021-03-23] MEDS: D5-NS 0.45% + KCL 20 mEq 20 MEQ/1,000 ML BAG 100 MEQ IV ×2 (08:54→17:45)
--- NOTE | 2021-03-23 09:25 | P.PN_ITS ---
Subjective Subjective: Interval history: The patient's abdomen is sore but she says the hydromorphone is doing a good job controlling her discomfort and she is resting well. She is not passing any flatus. Vitals/I&O/Wt Last Vital Signs Temp 98.0 F 03/23/21 07:18 Pulse 88 03/23/21 08:14 Resp 17 03/23/21 08:05 BP 138/85 03/23/21 07:18 Pulse Ox 95 03/23/21 08:05 03/22/21 03/23/21 03/23/21 22:59 06:59 14:59 Intake Total 50 / 2503.333 1023.333 / 2503.333 1018.333 / 1018.333 Output Total 950 / 2425 550 / 2425 Balance -900 / 78.333 473.333 / 78.333 1018.333 / 1018.333 Weight last 48 hrs Weight 126 lb Physical Exam Narrative: EXAM NARRATIVE: Bowel sounds are rare. The midline dressing is intact. Urine output is excellent. Urinary Catheter Management^: Pope Latex: Cath Placed During This Visit: yes Reason for Continuing Indwelling Catheter: Perioperative Use in Selected Surgeries Urinary Catheter Date of Insertion: 03/22/21 Urinary Catheter Time of Insertion: 09:30 Data : 03/23/21 03:07 03/23/21 03:07 A&P Assessment and plan (1) Small bowel obstruction: Status post laparotomy with segmental small bowel resection on 03/22/2021. Pathology pending. Up in a chair today. Status: Acute (2) Incisional hernia: Status post repair on 03/22/2021. Status: Acute Attestations Medical Necessity Statement*: See admitting service's notation. Coding Level of Care Code Acute Commercial Interior Designer for [facility] Harper Diagnoses Small bowel obstruction K56.609 Incisional hernia K43.2
--- NOTE | 2021-03-23 09:53 | PC.CHAP ---
Pastoral Care Encounter/Spiritual Assessment Type of Contact [] Declined bindery leadperson visit [] Patient/Family/Request visit [] Outpatient visit [] Follow-up visit [] Physician referral [] Code/Alert [x] Routine visit [] Staff referral [] Actively dying [] Patient sleeping [] Family support [] [] Out of room [] Palliative care [] [] Receiving care in room [] Pre-surgical visit [] Trauma [] Long length of stay [] ICU visit [] Other: Relational/Emotional Strength [x] Patient feels connected with others/family/visitors/staff [] Distress [] Loneliness/isolation [] Abandonment Spirituality of Patient [x] Person of Kait [] Attends Restoration of their Kait [x] Believes in Prayer [] Reads Bible or Alevism materials [] There are Spiritual issues to be addressed Junior Net Developer Interventions [x] Prayer [x] Active listening [x] Non-anxious presence [] Spiritual/emotional support [] Crisis/trauma care [] Spiritual counseling [] Bereavement support [] Provided bereavement packet [] Provided Bible/devotional materials [] Provided toy/stuffed animal, coloring book to patient or family member [] Provided Communion [] Anointing/[place] [] Salvation [x] Completed spiritual assessment [] Other: Impact on Illness or Injury [] Angry [] Fearful [] Anxious [] Often cries [] Exhaustion [] Unable to work [] Unable to attend sabianism [] Unable to walk/stand [] Unable to read [] Unable to drive [] Unable to eat/drink [] Unable to sleep [] Unable to be with family [] Patient intubated [] Other: Summary Time spent with patient 10 min
[2021-03-23] MEDS: heparin 5,000 unit/mL INJ 1 mL 5000 UNIT SUBCUT (12:01)
[2021-03-23 13:13] LABS: Add Urine Microscopic? YES; Bilirubin Urine Neg (Negative); Blood Urine 2+ (Negative); Glucose Urine UA Norm (Normal); Ketones Urine Negative (Negative); Leukocyte Esterase Urine Negative (Negative); Nitrate Urine Negative (Negative); Protein Urine Neg (Negative); Specific Gravity, Urine 1.015 (1.005-1.030); Urine Appearance Clear (CLEAR); Urine Color Yellow (Yellow); Urobilinogen Urine Norm (Negative); pH Urine 6.5 (5-7)
[2021-03-23 13:14] LABS: RBC Urine 0-4 /hpf (0-2)
[2021-03-23 13:15] LABS: Add Urine Culture? No; Bacteria Urine TRACE /hpf; Squamous Epithelial Cell Urine RARE /hpf (0-5); WBC Urine 0-4 /hpf (0-5)
--- NOTE | 2021-03-23 13:52 | PM.PN ---
Subjective Subjective: Interval history: Seen this morning. She is not passing any flatus yet. Abdomen is sore but does not have any active crampy pain. She was seen by general surgery this morning as well. NG tube remain in place for now. Patient's pain is well controlled on pain regimen that we have her on at this time. Vitals/I&O/Wt Last Vital Signs Temp 98.4 F 03/23/21 12:00 Pulse 89 03/23/21 12:00 Resp 17 03/23/21 12:00 BP 143/84 03/23/21 12:00 Pulse Ox 98 03/23/21 12:00 03/22/21 03/23/21 03/23/21 22:59 06:59 14:59 Intake Total 50 / 1480 1023.333 / 2503.333 1018.333 / 1018.333 Output Total 950 / 1875 550 / 2425 Balance -900 / -395 473.333 / 78.333 1018.333 / 1018.333 Physical Exam Narrative: EXAM NARRATIVE: General: Alert oriented x3, patient seen this morning seen sitting up in bed NG tube in place. NG is draining thick green liquid. HEENT: Normocephalic, atraumatic, EOMI, breathing comfortably. Cardio: Regular rate rhythm, normal S1-S2, Respiratory: Good bilateral air entry, no wheezes no rhonchi appreciated GI: Abdomen soft, mildly tender to palpation over incisional site, mildly distended, bowel sounds absent. Extremities: no edema, no cyanosis Urinary Catheter Management^: Pope Latex: Cath Placed During This Visit: yes Reason for Continuing Indwelling Catheter: Perioperative Use in Selected Surgeries Urinary Catheter Date of Insertion: 03/22/21 Urinary Catheter Time of Insertion: 09:30 Data : 03/23/21 03:07 03/23/21 03:07 A&P Assessment and plan (1) Incisional hernia: Status: Acute (2) Small bowel obstruction: Status: Acute (3) Nausea and vomiting: Status: Acute (4) Iron deficiency anemia: Status: Acute (5) GERD (gastroesophageal reflux disease): Status: Acute (6) Internal hemorrhoid: Status: Acute Additional A&P Information #SBO s/p laparotomy #Hx of partial gastrectomy and partial small bowel resection with Billroth I anastomosis and partial colectomy in 2010) has a port A cath, in September 2020 which showed nonerosive gastritis and gastrojejunal anastomosis that was patent. Colonoscopy showed internal hemorrhoids and diverticulosis, attends behavioral health clinic for her anxiety came in with chief complaint of worsening abdominal pain. Patient was admitted for small bowel obstruction. She is postop day 1. Incisional hernia repair done and segmental small bowel resection. Pathology is pending General surgery is following. Patient is still not passing flatus. NG still in place. Will follow recommendations from general surgery Pain control. Bowel regimen to be started once able to. #Iron deficiency anemia ?Patient has a port for blood draws and transfusions. We will continue to monitor hemoglobin. No evidence of active bleed at this time. Full code Keep n.p.o. Attestations Medical Necessity Statement*: Greater than 48-hour stay. Coding Level of Care Code Acute Concentrator Operator for [facility] Fwd Diagnoses Incisional hernia K43.2 Small bowel obstruction K56.609 Nausea and vomiting R11.2 Iron deficiency anemia D50.9 GERD (gastroesophageal reflux disease) K21.9 Internal hemorrhoid K64.8
[2021-03-23] MEDS: ondansetron 2 mg/ML SDV 2 mL 4 MG IVP (18:36)
[2021-03-24] VITALS (15 sets, daily range): BP systolic 118–144; BP diastolic 72–85; PULSE 71–94; RESP 16–19; TEMP 36.5–37; O2SAT 94–98
[2021-03-24] MEDS: heparin 5,000 unit/mL INJ 1 mL 5000 UNIT SUBCUT ×2 (00:13→11:40)
[2021-03-24] MEDS: piperacillin-tazobactam 3.375 GM in sodium chloride 0.9% (plus) 50 ML IV ×3 (03:45→20:14)
[2021-03-24] MEDS: HYDROmorphone 1 mg/mL INJ 1 mL IVP ×5 (03:47→21:54)
[2021-03-24] MEDS: D5-NS 0.45% + KCL 20 mEq 20 MEQ/1,000 ML BAG 100 MEQ IV ×2 (05:00→15:26)
[2021-03-24 07:00] LABS: Basophils % 0.4 %; Eosinophils # 0.5 10^3/uL (0.0-0.8); Eosinophils % 9.6 %; Hematocrit 31.3 % (37.0-47.0); Hemoglobin 9.6 g/dL (11.5-15.3); Lymphocytes # 0.6 10^3/uL (0.8-4.8); Lymphocytes % 12.7 %; Mean Corpuscular HGB Conc 30.7 g/dL (30.0-36.0); Mean Corpuscular Hemoglobin 27.9 pg (28.0-34.0); Mean Platelet Volume 9.8 fL (7.4-10.4); Monocytes # 0.8 10^3/uL (0.2-0.9); Monocytes % 15.3 %; Neutrophils # 3.09 10^3/uL (1.8-7.7); Neutrophils % 61.6 %; Nucleated Red Blood Cells % 0 %; Platelet Count 222 10^3/cmm (130-400); Red Blood Count 3.44 10^6/uL (4.1-5.3); Red Cell Distribution Width 19.9 % (12.1-15.1)
--- NOTE | 2021-03-24 07:00 | XRR_ITS ---
PROCEDURE INFORMATION: Exam: XR Abdomen Exam date and time: 03/24/2021 7:00 AM Age: 61 years old Clinical indication: Condition or disease; Intestinal condition; Prior surgery; Surgery type: Multiple; Hernia is most recent; Patient HX: Small bowel obstruction follow up TECHNIQUE: Imaging protocol: XR of the abdomen. Views: Frontal supine view of the abdomen. 1 View. COMPARISON: CR (ABDOMEN, ) 03/21/2021 3:08 PM FINDINGS: Tubes, catheters and devices: Feeding tube is in satisfactory position. Surgical clips project over the epigastric region. Surgical skin clips project over the mid abdomen. Gastrointestinal tract: Persistent air distended loops of small bowel. No air-fluid levels seen. Stool is seen within the right colon. Bones/joints: Unremarkable. XR/XR KUB portable [id number] IMPRESSION: Persistent air distended loops of small bowel without clear evidence of air-fluid levels. These findings can be seen in setting of obstruction or adynamic ileus. Radiation Dose CTDIVOL = (mGy): DLP = (mGy-cm)
[2021-03-24 07:22] LABS: Anion Gap 10.5 (5-19); Blood Urea Nitrogen 5 mg/dL (8-23); Calcium 7.9 mg/dL (8.5-10.5); Carbon Dioxide 25 mmol/L (22-29); Chloride 106 mmol/L (98-107); Glomerular Filtration Rate 125.9 mL/min (90-130); Glucose 134 mg/dL (65-115); Magnesium 1.7 mg/dL (1.7-2.3); Osmolality Calculated 285 mOsm/kg (285-295); Potassium 3.5 mmol/L (3.5-5.1); Sodium 138 mmol/L (136-145)
--- NOTE | 2021-03-24 07:41 | PM.PN ---
Subjective Subjective: Interval history: The patient says she is feeling fairly well. She has not passed any flatus yet. Vitals/I&O/Wt Last Vital Signs Temp 97.8 F 03/24/21 04:00 Pulse 91 03/24/21 04:00 Resp 18 03/24/21 04:00 BP 118/73 03/24/21 04:00 Pulse Ox 94 03/24/21 04:00 03/23/21 03/24/21 03/24/21 22:59 06:59 14:59 Intake Total 1055 / 3123.333 1050 / 3123.333 Output Total 800 / 1000 200 / 1000 Balance 255 / 2123.333 850 / 2123.333 Physical Exam Narrative: EXAM NARRATIVE: AVSS. Bowel sounds remain fairly inactive. The midline dressing was removed and the incision looks good. Urinary Catheter Management^: Pope Latex: Cath Placed During This Visit: yes Reason for Continuing Indwelling Catheter: Accurate Measurement of Urinary Output in Critically Ill Patients Urinary Catheter Date of Insertion: 03/22/21 Urinary Catheter Time of Insertion: 09:30 Data : 03/24/21 06:22 03/24/21 06:22 A&P Assessment and plan (1) Small bowel obstruction: Status post laparotomy with segmental small bowel resection on 03/22/2021. Pathology pending. Remove Pope. Ambulate. Status: Acute (2) Incisional hernia: Status post repair on 03/22/2021. Status: Acute Attestations Medical Necessity Statement*: See admitting service's notation. Coding Level of Care Code Acute Senior Water/Wastewater Engineer for [facility] Diagnoses Small bowel obstruction K56.609 Incisional hernia K43.2
[2021-03-24] MEDS: pantoprazole 40 mg SDV IVP (07:49)
[2021-03-24] MEDS: ondansetron 2 mg/ML SDV 2 mL 4 MG IVP ×2 (07:49→22:23)
[2021-03-24] MEDS: levalbuterol 0.63 mg/3 mL Neb INHALATION ×3 (08:27→20:25)
--- NOTE | 2021-03-24 11:00 | PC.NURSE ---
Dr. Andrade was notified of rash on patient that is head to toe. At bedside with Dr. Andrade when he rounded. Orders received to discontinue vancomycin, levaquin, and zosyn.
--- NOTE | 2021-03-24 15:17 | PM.PN ---
Subjective Subjective: Interval history: Patient feels a lot better today. She states that she has still not been able to pass gas. However she feels better. She is excited that she will get to walk around today. She does feel like she has to have a bowel movement and has requested for a bedside commode. NG tube still draining greenish liquid. Vitals/I&O/Wt Last Vital Signs Temp 98.4 F 03/24/21 11:11 Pulse 91 03/24/21 11:31 Resp 17 03/24/21 13:24 BP 126/79 03/24/21 11:11 Pulse Ox 96 03/24/21 11:31 03/24/21 03/24/21 03/24/21 06:59 14:59 22:59 Intake Total 1050 / 3123.333 170 / 170 Output Total 200 / 1000 2550 / 2550 Balance 850 / 2123.333 -2380 / -2380 Physical Exam Narrative: EXAM NARRATIVE: General: Alert oriented x3, patient seen this morning seen sitting up in bed NG tube in place. NG is draining thick green liquid. HEENT: Normocephalic, atraumatic, EOMI, breathing comfortably. Cardio: Regular rate rhythm, normal S1-S2, Respiratory: Good bilateral air entry, no wheezes no rhonchi appreciated GI: Abdomen soft, mildly tender to palpation over incisional site, mildly distended, bowel sounds absent. Extremities: no edema, no cyanosis Urinary Catheter Management^: Pope Latex: Cath Placed During This Visit: yes, but has since been removed by the nurse Reason for Continuing Indwelling Catheter: Decision to DC Catheter Urinary Catheter Date of Insertion: 03/22/21 Urinary Catheter Time of Insertion: 09:30 Date Urinary Catheter Removed: 03/24/21 Time Urinary Catheter Discontinued: 10:28 Data : 03/24/21 06:22 03/24/21 06:22 A&P Assessment and plan (1) Incisional hernia: Status: Acute (2) Small bowel obstruction: Status: Acute (3) Nausea and vomiting: Status: Acute (4) Iron deficiency anemia: Status: Acute (5) GERD (gastroesophageal reflux disease): Status: Acute (6) Internal hemorrhoid: Status: Acute Additional A&P Information #SBO s/p laparotomy #Hx of partial gastrectomy and partial small bowel resection with Billroth I anastomosis and partial colectomy in 2010) has a port A cath, in September 2020 which showed nonerosive gastritis and gastrojejunal anastomosis that was patent. Colonoscopy showed internal hemorrhoids and diverticulosis, attends behavioral health clinic for her anxiety came in with chief complaint of worsening abdominal pain. Patient was admitted for small bowel obstruction. She is postop day 1. Incisional hernia repair done and segmental small bowel resection. Pathology is pending General surgery is following. Patient is still not passing flatus. NG still in place. Will follow recommendations from general surgery Pain control. Bowel regimen to be started once able to. #Iron deficiency anemia ?Patient has a port for blood draws and transfusions. We will continue to monitor hemoglobin. No evidence of active bleed at this time. Full code Keep n.p.o. Attestations Medical Necessity Statement*: Greater than 48-hour stay. Coding Level of Care Code Acute Assistant Track And Field Coach for g Fwd Diagnoses Incisional hernia K43.2 Small bowel obstruction K56.609 Nausea and vomiting R11.2 Iron deficiency anemia D50.9 GERD (gastroesophageal reflux disease) K21.9 Internal hemorrhoid K64.8
[2021-03-25] VITALS (17 sets, daily range): BP systolic 120–142; BP diastolic 71–83; PULSE 68–88; RESP 14–19; TEMP 36.3–37.2; O2SAT 91–100
[2021-03-25] MEDS: D5-NS 0.45% + KCL 20 mEq 20 MEQ/1,000 ML BAG 100 MEQ IV ×3 (00:24→19:47)
[2021-03-25] MEDS: heparin 5,000 unit/mL INJ 1 mL 5000 UNIT SUBCUT ×3 (00:24→23:39)
[2021-03-25] MEDS: piperacillin-tazobactam 3.375 GM in sodium chloride 0.9% (plus) 50 ML IV ×3 (04:25→19:46)
[2021-03-25] MEDS: HYDROmorphone 1 mg/mL INJ 1 mL IVP ×5 (04:29→23:39)
--- NOTE | 2021-03-25 06:17 | PM.PN ---
Subjective Subjective: Interval history: The patient says since yesterday she has started feeling a lot better. She still has not passed any flatus that she is aware of. Vitals/I&O/Wt Last Vital Signs Temp 97.4 F L 03/25/21 04:00 Pulse 88 03/25/21 04:00 Resp 16 03/25/21 04:29 BP 142/80 03/25/21 04:00 Pulse Ox 97 03/25/21 04:00 03/24/21 03/24/21 03/25/21 14:59 22:59 06:59 Intake Total 170 / 2166.667 1050 / 2166.667 946.667 / 2166.667 Output Total 2850 / 3500 250 / 3500 400 / 3500 Balance -2680 / -1333.333 800 / -1333.333 546.667 / -1333.333 Physical Exam Narrative: EXAM NARRATIVE: Bowel sounds are better today. The incision looks good. Urinary Catheter Management^: Pope Latex: Cath Placed During This Visit: yes, but has since been removed by the nurse Reason for Continuing Indwelling Catheter: Not indwelling catheter Urinary Catheter Date of Insertion: 03/22/21 Urinary Catheter Time of Insertion: 09:30 Date Urinary Catheter Removed: 03/24/21 Time Urinary Catheter Discontinued: 08:00 Data : 03/25/21 05:09 03/24/21 06:22 A&P Assessment and plan (1) Small bowel obstruction: Status post laparotomy with segmental small bowel resection on 03/22/2021. Pathology pending. Some labs are still pending this morning but the patient appears to be doing well. Awaiting return of bowel function. Status: Acute (2) Incisional hernia: Status post repair on 03/22/2021. Status: Acute Attestations Medical Necessity Statement*: See admitting service's notation. Coding Level of Care Code Acute Research Associate Professor for [facility] Diagnoses Small bowel obstruction K56.609 Incisional hernia K43.2
[2021-03-25 06:21] LABS: Basophils % 0.4 %; Eosinophils # 0.4 10^3/uL (0.0-0.8); Eosinophils % 8.9 %; Hematocrit 31.5 % (37.0-47.0); Hemoglobin 9.8 g/dL (11.5-15.3); Lymphocytes # 0.6 10^3/uL (0.8-4.8); Lymphocytes % 12.2 %; Mean Corpuscular HGB Conc 31.1 g/dL (30.0-36.0); Mean Corpuscular Hemoglobin 28.1 pg (28.0-34.0); Mean Corpuscular Volume 90.3 fl (81-99); Mean Platelet Volume 9.9 fL (7.4-10.4); Monocytes # 0.6 10^3/uL (0.2-0.9); Monocytes % 12.2 %; Neutrophils # 3.16 10^3/uL (1.8-7.7); Neutrophils % 65.1 %; Nucleated Red Blood Cells % 0 %; Platelet Count 227 10^3/cmm (130-400); Red Blood Count 3.49 10^6/uL (4.1-5.3); Red Cell Distribution Width 19.1 % (12.1-15.1); White Blood Count 4.9 10^3/uL (4.0-10.0)
[2021-03-25 06:49] LABS: Anion Gap 10.1 (5-19); Blood Urea Nitrogen 2 mg/dL (8-23); Calcium 8.4 mg/dL (8.5-10.5); Carbon Dioxide 27 mmol/L (22-29); Chloride 106 mmol/L (98-107); Creatinine Clr Calc Pharmacy 134.7278; Glomerular Filtration Rate 162.8 mL/min (90-130); Glucose 128 mg/dL (65-115); Magnesium 1.7 mg/dL (1.7-2.3); Osmolality Calculated 288 mOsm/kg (285-295); Potassium 3.1 mmol/L (3.5-5.1); Sodium 140 mmol/L (136-145)
[2021-03-25] MEDS: pantoprazole 40 mg SDV IVP (07:46)
[2021-03-25] MEDS: levalbuterol 0.63 mg/3 mL Neb INHALATION ×3 (08:00→20:17)
[2021-03-25] MEDS: lidocaine 1% 5 ML in potassium chloride premix 100 ML 25 ML IV (08:47)
--- NOTE | 2021-03-25 15:52 | XRR_ITS ---
PROCEDURE INFORMATION: Exam: XR Chest Exam date and time: 03/25/2021 3:52 PM Age: 61 years old Clinical indication: Other: Abdominal swelling; Prior surgery; Surgery type: --port, hysterectomy, gb, appendectomy, breast reduction, 1/3 stomach, colon, RT total knee; Additional info: Follow up TECHNIQUE: Imaging protocol: XR of the chest. Views: 1 view. COMPARISON: CR Chest 2 views* [id number] 12/25/2015 6:10 AM FINDINGS: Tubes, catheters and devices: Right chest port terminates at the right atrium. Enteric tube terminates in the stomach. Lungs: Unremarkable. No consolidation. Pleural spaces: Unremarkable. No pleural effusion. No pneumothorax. Heart/Mediastinum: Unremarkable. No cardiomegaly. Bones/joints: Unremarkable. Organs: Cholecystectomy clips. XR/XR chest 1V portable [id number] IMPRESSION: No acute findings. Radiation Dose CTDIVOL = (mGy): DLP = (mGy-cm)
--- NOTE | 2021-03-25 15:54 | P.PN_ITS ---
Subjective Subjective: Interval history: Seen this morning. Patient states that she has been having a little bit of pain when she takes a deep breath in her left shoulder blade. Otherwise she is not short of breath denies any chest pain. Has been afebrile overnight no leukocytosis. Still not passing any gas but does have bowel sounds normal. Has been walking around the nursing station and feels better. NG tube drained 500 cc of greenish material overnight. Vitals/I&O/Wt Last Vital Signs Temp 98.3 F 03/25/21 15:35 Pulse 81 03/25/21 15:40 Resp 14 03/25/21 15:40 BP 132/80 03/25/21 15:35 Pulse Ox 98 03/25/21 15:40 03/25/21 03/25/21 03/25/21 06:59 14:59 22:59 Intake Total 946.667 / 2166.667 1275 / 1275 Output Total 400 / 3500 Balance 546.667 / -8488.277 0870 / 1275 Physical Exam Narrative: EXAM NARRATIVE: General: Alert oriented x3, patient seen this morning seen sitting up in bed NG tube in place. NG is draining thick green liquid. HEENT: Normocephalic, atraumatic, EOMI, breathing comfortably. Cardio: Regular rate rhythm, normal S1-S2, Respiratory: Good bilateral air entry, no wheezes no rhonchi appreciated GI: Abdomen soft, very mildly tender to palpation over incisional site, mildly distended, bowel sounds present but hypoactive. Abdominal exam appears improved compared to prior days. Extremities: no edema, no cyanosis Urinary Catheter Management^: Pope Latex: Cath Placed During This Visit: yes, but has since been removed by the nurse Reason for Continuing Indwelling Catheter: Not indwelling catheter Urinary Catheter Date of Insertion: 03/22/21 Urinary Catheter Time of Insertion: 09:30 Date Urinary Catheter Removed: 03/24/21 Time Urinary Catheter Discontinued: 08:00 Data : 03/25/21 05:09 03/25/21 05:09 A&P Assessment and plan (1) Incisional hernia: Status: Acute (2) Small bowel obstruction: Status: Acute (3) Nausea and vomiting: Status: Acute (4) Iron deficiency anemia: Status: Acute (5) GERD (gastroesophageal reflux disease): Status: Acute (6) Internal hemorrhoid: Status: Acute Additional A&P Information #SBO s/p laparotomy #Hx of partial gastrectomy and partial small bowel resection with Billroth I anastomosis and partial colectomy in 2010) has a port A cath, in September 2020 which showed nonerosive gastritis and gastrojejunal anastomosis that was patent. Colonoscopy showed internal hemorrhoids and diverticulosis, attends behavioral health clinic for her anxiety came in with chief complaint of worsening abdominal pain. Patient was admitted for small bowel obstruction. She is postop day 3. Incisional hernia repair done and segmental small bowel resection. Pathology is pending General surgery is following. Patient is still not passing flatus. NG still in place. Will follow recommendations from general surgery Pain control. Bowel regimen to be started once able to. #Iron deficiency anemia ?Patient has a port for blood draws and transfusions. We will continue to monitor hemoglobin. No evidence of active bleed at this time. Full code Keep n.p.o. Attestations Medical Necessity Statement*: Greater than 48 hours stay Coding Level of Care Code Acute Glass Laminating Operator for [facility] Fwd Diagnoses Incisional hernia K43.2 Small bowel obstruction K56.609 Nausea and vomiting R11.2 Iron deficiency anemia D50.9 GERD (gastroesophageal reflux disease) K21.9 Internal hemorrhoid K64.8
[2021-03-25] MEDS: ketorolac 30 mg/mL INJ 15 MG IVP (18:29)
[2021-03-26] VITALS (8 sets, daily range): BP systolic 128–158; BP diastolic 75–101; PULSE 77–100; RESP 16–18; TEMP 36.6–37.3; O2SAT 93–99
[2021-03-26] MEDS: piperacillin-tazobactam 3.375 GM in sodium chloride 0.9% (plus) 50 ML IV (03:10)
[2021-03-26] MEDS: ketorolac 30 mg/mL INJ 15 MG IVP ×2 (05:19→20:10)
[2021-03-26] MEDS: D5-NS 0.45% + KCL 20 mEq 20 MEQ/1,000 ML BAG 100 MEQ IV ×2 (05:19→23:29)
[2021-03-26 05:31] LABS: Basophils # 0.1 10^3/uL (0.0-0.1); Basophils % 0.9 %; Eosinophils # 0.5 10^3/uL (0.0-0.8); Eosinophils % 9.4 %; Hematocrit 34.6 % (37.0-47.0); Hemoglobin 10.8 g/dL (11.5-15.3); Mean Corpuscular HGB Conc 31.2 g/dL (30.0-36.0); Mean Corpuscular Hemoglobin 28.1 pg (28.0-34.0); Mean Corpuscular Volume 90.1 fl (81-99); Mean Platelet Volume 9.2 fL (7.4-10.4); Monocytes # 0.7 10^3/uL (0.2-0.9); Monocytes % 12.7 %; Neutrophils # 3.24 10^3/uL (1.8-7.7); Neutrophils % 56.1 %; Nucleated Red Blood Cells % 0 %; Platelet Count 306 10^3/cmm (130-400); Red Blood Count 3.84 10^6/uL (4.1-5.3); Red Cell Distribution Width 19.2 % (12.1-15.1); White Blood Count 5.8 10^3/uL (4.0-10.0)
[2021-03-26 05:58] LABS: Anion Gap 12.3 (5-19); Blood Urea Nitrogen 2 mg/dL (8-23); Calcium 8.9 mg/dL (8.5-10.5); Carbon Dioxide 25 mmol/L (22-29); Chloride 104 mmol/L (98-107); Glomerular Filtration Rate 162.8 mL/min (90-130); Glucose 211 mg/dL (65-115); Magnesium 1.6 mg/dL (1.7-2.3); Osmolality Calculated 286 mOsm/kg (285-295); Potassium 4.3 mmol/L (3.5-5.1); Sodium 137 mmol/L (136-145)
[2021-03-26 06:02] LABS: Creatinine Clr Calc Pharmacy 134.7278
--- NOTE | 2021-03-26 06:14 | PM.PN ---
Subjective Subjective: Interval history: The patient says she started passing flatus yesterday afternoon. I asked her to have nursing notify me when that happened but I was never notified. She has been ambulating regularly. She is getting hungry. Vitals/I&O/Wt Last Vital Signs Temp 97.9 F 03/26/21 04:00 Pulse 85 03/26/21 04:00 Resp 18 03/26/21 04:00 BP 135/77 03/26/21 04:00 Pulse Ox 98 03/26/21 04:00 03/25/21 03/25/21 03/26/21 14:59 22:59 06:59 Intake Total 1275 / 3278.333 1000 / 3278.333 1003.333 / 3278.333 Output Total 100 / 450 350 / 450 Balance 1275 / 2828.333 900 / 2828.333 653.333 / 2828.333 Physical Exam Narrative: EXAM NARRATIVE: The incision looks good. Bowel sounds are present. The abdomen is soft and nondistended. Urinary Catheter Management^: Pope Latex: Cath Placed During This Visit: yes, but has since been removed by the nurse Reason for Continuing Indwelling Catheter: Required Immobilization for Trauma or Surgery or Anesthesia Urinary Catheter Date of Insertion: 03/22/21 Urinary Catheter Time of Insertion: 09:30 Date Urinary Catheter Removed: 03/24/21 Time Urinary Catheter Discontinued: 08:00 Data : 03/26/21 05:12 03/26/21 05:12 A&P Assessment and plan (1) Small bowel obstruction: Status post laparotomy with segmental small bowel resection on 03/22/2021. The pathologist contacted me yesterday to let me know there were no concerning findings in the segment of small bowel that was removed, but a significant amount of vegetable matter was found proximal to the clinical site of obstruction. Remove NG tube. Clear liquid diet, advance as tolerated. If the patient tolerates solid food I think she can be safely discharged. I will make arrangements for follow-up in the office. Status: Acute (2) Incisional hernia: Status post repair on 03/22/2021. Status: Acute Attestations Medical Necessity Statement*: See admitting service's notation. Coding Level of Care Code Acute Loading Rack Supervisor for [facility] Diagnoses Small bowel obstruction K56.609 Incisional hernia K43.2
[2021-03-26] MEDS: magnesium sulfate premix 2 GM/50 ML PIGGYBACK IV (06:17)
[2021-03-26] MEDS: HYDROcodone-acetaminophen 5-325 mg Tablet PO ×4 (07:40→23:28)
--- NOTE | 2021-03-26 10:43 | PC.CHAP ---
Pastoral Care Encounter/Spiritual Assessment Type of Contact [] Declined retail marketing manager visit [] Patient/Family/Request visit [] Outpatient visit [] Follow-up visit [] Physician referral [] Code/Alert [x] Routine visit [] Staff referral [] Actively dying [] Patient sleeping [] Family support [] [] Out of room [] Palliative care [] [x] Receiving care in room [] Pre-surgical visit [] Trauma [] Long length of stay [] ICU visit [] Other: Relational/Emotional Strength [x] Patient feels connected with others/family/visitors/staff [] Distress [] Loneliness/isolation [] Abandonment Spirituality of Patient [x] Person of Kait [] Attends Spiritism of their Kait [x] Believes in Prayer [] Reads Bible or Lutheran materials [] There are Spiritual issues to be addressed Biomedical Specialist Interventions [x] Prayer [x] Active listening [x] Non-anxious presence [x] Spiritual/emotional support [] Crisis/trauma care [x] Spiritual counseling [] Bereavement support [] Provided bereavement packet [] Provided Bible/devotional materials [] Provided toy/stuffed animal, coloring book to patient or family member [] Provided Communion [] Anointing/[place] [] Salvation [x] Completed spiritual assessment [] Other: Impact on Illness or Injury [] Angry [] Fearful [x] Anxious [] Often cries [] Exhaustion [x] Unable to work [] Unable to attend mandaeism [] Unable to walk/stand [] Unable to read [] Unable to drive [] Unable to eat/drink [] Unable to sleep [] Unable to be with family [] Patient intubated [] Other: Summary had surgery on small intesion feels much better hss a good atitude postive some recover time at home Time spent with patient 10 mins
[2021-03-26] MEDS: polyethylene glycol 3350 Pkt 17 gm PO (10:44)
[2021-03-26] MEDS: pantoprazole 40 mg SDV IVP (10:44)
--- NOTE | 2021-03-26 11:17 | P.PN_ITS ---
Subjective Subjective: Interval history: Patient seen today she was walking around with her IV pole in the hallway and in her room. She is starting to pass flatus and has also been started on a diet this morning. She says she is a little bit nauseous but overall tolerating diet okay. She has no other complaints this morning. Vitals/I&O/Wt Last Vital Signs Temp 98.2 F 03/26/21 07:26 Pulse 79 03/26/21 07:26 Resp 17 03/26/21 07:26 BP 144/78 03/26/21 07:26 Pulse Ox 93 03/26/21 07:26 03/25/21 03/26/21 03/26/21 22:59 06:59 14:59 Intake Total 1000 / 2275 1043.333 / 3318.333 50 / 50 Output Total 100 / 100 350 / 450 Balance 900 / 2175 693.333 / 2868.333 50 / 50 Physical Exam Narrative: EXAM NARRATIVE: General: Alert oriented x3, patient seen this morning standing with IV pole in her room HEENT: Normocephalic, atrau standing with IV pole in hermatic, EOMI, breathing comfortably. Cardio: Regular rate rhythm, normal S1-S2, Respiratory: Good bilateral air entry, no wheezes no rhonchi appreciated GI: Abdomen soft, nondistended Extremities: no edema, no cyanosis Urinary Catheter Management^: Pope Latex: Cath Placed During This Visit: yes, but has since been removed by the nurse Reason for Continuing Indwelling Catheter: Required Immobilization for Trauma or Surgery or Anesthesia Urinary Catheter Date of Insertion: 03/22/21 Urinary Catheter Time of Insertion: 09:30 Date Urinary Catheter Removed: 03/24/21 Time Urinary Catheter Discontinued: 08:00 Data : 03/26/21 05:12 03/26/21 05:12 A&P Assessment and plan (1) Incisional hernia: Status: Acute (2) Small bowel obstruction: Status: Acute (3) Nausea and vomiting: Status: Acute (4) Iron deficiency anemia: Status: Acute (5) GERD (gastroesophageal reflux disease): Status: Acute (6) Internal hemorrhoid: Status: Acute Additional A&P Information #SBO s/p laparotomy #Hx of partial gastrectomy and partial small bowel resection with Billroth I anastomosis and partial colectomy in 2010) has a port A cath, in September 2020 which showed nonerosive gastritis and gastrojejunal anastomosis that was patent. Colonoscopy showed internal hemorrhoids and diverticulosis, attends behavioral health clinic for her anxiety came in with chief complaint of worsening abdominal pain. Patient was admitted for small bowel obstruction. She is postop day 3. Incisional hernia repair done and segmental small bowel resection. Official pathology report is pending General surgery is following. Pt started passing flatus. SHe has been started on diet. If able to tolerate, will discharge her. Patient rerports some nausea after starting to eat. WIll monitor for now. Pain control. Bowel regimen to be started once able to. #Iron deficiency anemia ?Patient has a port for blood draws and transfusions. We will continue to monitor hemoglobin. No evidence of active bleed at this time. Full code Clear liquid diet Attestations Medical Necessity Statement*: DC in AM. Coding Level of Care Code Acute Transplant Rn for g Fwd Diagnoses Incisional hernia K43.2 Small bowel obstruction K56.609 Nausea and vomiting R11.2 Iron deficiency anemia D50.9 GERD (gastroesophageal reflux disease) K21.9 Internal hemorrhoid K64.8
[2021-03-26] MEDS: heparin 5,000 unit/mL INJ 1 mL 5000 UNIT SUBCUT ×2 (11:49→23:28)
[2021-03-26] MEDS: levalbuterol 0.63 mg/3 mL Neb INHALATION (19:25)
[2021-03-27] VITALS (14 sets, daily range): BP systolic 121–133; BP diastolic 65–84; PULSE 69–85; RESP 16–23; TEMP 36.3–37.1; O2SAT 16–99
[2021-03-27] MEDS: levalbuterol 0.63 mg/3 mL Neb INHALATION ×4 (07:15→19:23)
[2021-03-27] MEDS: HYDROcodone-acetaminophen 5-325 mg Tablet PO ×3 (07:48→23:35)
[2021-03-27] MEDS: pantoprazole 40 mg SDV IVP (07:48)
[2021-03-27] MEDS: polyethylene glycol 3350 Pkt 17 gm PO (07:49)
--- NOTE | 2021-03-27 08:42 | PM.PN ---
Subjective Subjective: Interval history: The patient says she is passing a lot of flatus. She is hungry and would like to eat solid food. I left an order for her diet to be advanced yesterday but apparently this never happened and she is still on clear liquids. She feels like she is ready to go home. Vitals/I&O/Wt Last Vital Signs Temp 97.4 F L 03/27/21 07:11 Pulse 82 03/27/21 07:20 Resp 16 03/27/21 07:20 BP 123/73 03/27/21 07:11 Pulse Ox 98 03/27/21 07:20 03/26/21 03/27/21 03/27/21 22:59 06:59 14:59 Intake Total 1000 / 1290 240 / 1290 Balance 1000 / 1290 240 / 1290 Physical Exam Narrative: EXAM NARRATIVE: Vital signs are stable. Bowel sounds are present. The incision looks good. The computer indicates the patient has had no urine output but she says she is voiding regularly. Urinary Catheter Management^: Pope Latex: Cath Placed During This Visit: yes, but has since been removed by the nurse Reason for Continuing Indwelling Catheter: Required Immobilization for Trauma or Surgery or Anesthesia Urinary Catheter Date of Insertion: 03/22/21 Urinary Catheter Time of Insertion: 09:30 Date Urinary Catheter Removed: 03/24/21 Time Urinary Catheter Discontinued: 08:00 Data : 03/26/21 05:12 03/26/21 05:12 A&P Assessment and plan (1) Small bowel obstruction: Status post laparotomy with segmental small bowel resection on 03/22/2021. The pathologist contacted me to let me know there were no concerning findings in the segment of small bowel that was removed, but a significant amount of vegetable matter was found proximal to the clinical site of obstruction, perhaps consistent with a chronic bezoar. GI soft diet. If the patient tolerates solid food I told her she could be discharged today if it is okay with the medicine service. I will make arrangements for follow-up, postoperative pain medication, etc. Status: Acute (2) Incisional hernia: Status post repair on 03/22/2021. Status: Acute Attestations Medical Necessity Statement*: See admitting service's notation. Coding Level of Care Code Acute Lapidary Apprentice for Latia Harper Diagnoses Small bowel obstruction K56.609 Incisional hernia K43.2
--- NOTE | 2021-03-27 09:22 | P.PN_ITS ---
Subjective Subjective: Interval history: Patient seen this morning. She states she saw Dr. Simpson this a.m. and has advance her diet and she would like to go home. Vitals/I&O/Wt Last Vital Signs Temp 98.4 F 03/27/21 15:45 Pulse 78 03/27/21 15:45 Resp 17 03/27/21 15:45 BP 121/65 03/27/21 15:45 Pulse Ox 93 03/27/21 15:45 03/27/21 03/27/21 03/27/21 06:59 14:59 22:59 Intake Total 240 / 1290 480 / 480 1240 / 1720 Balance 240 / 1290 480 / 480 1240 / 1720 Physical Exam Narrative: EXAM NARRATIVE: General: Alert oriented x3, patient seen this morning appearing comfortable in bed Cardio: Regular rate rhythm, normal S1-S2, Respiratory: Good bilateral air entry, no wheezes no rhonchi appreciated GI: Abdomen soft, nondistended, mildly tender to palpation around incisional area, no guarding no rebound tenderness. Extremities: no edema, no cyanosis Urinary Catheter Management^: Pope Latex: Cath Placed During This Visit: yes, but has since been removed by the nurse Reason for Continuing Indwelling Catheter: Required Immobilization for Trauma or Surgery or Anesthesia Urinary Catheter Date of Insertion: 03/22/21 Urinary Catheter Time of Insertion: 09:30 Date Urinary Catheter Removed: 03/24/21 Time Urinary Catheter Discontinued: 08:00 Data : 03/27/21 09:03 03/27/21 09:03 A&P Assessment and plan (1) Incisional hernia: Status: Acute (2) Small bowel obstruction: Status: Acute (3) Nausea and vomiting: Status: Acute (4) Iron deficiency anemia: Status: Acute (5) GERD (gastroesophageal reflux disease): Status: Acute (6) Internal hemorrhoid: Status: Acute Additional A&P Information #SBO s/p laparotomy #Hx of partial gastrectomy and partial small bowel resection with Billroth I anastomosis and partial colectomy in 2010) has a port A cath, in September 2020 which showed nonerosive gastritis and gastrojejunal anastomosis that was patent. Colonoscopy showed internal hemorrhoids and diverticulosis, attends behavioral health clinic for her anxiety came in with chief complaint of worsening abdominal pain. Patient was admitted for small bowel obstruction. Incisional hernia repair done and segmental small bowel resection. General surgery is following. Pt started passing flatus. SHe has been started on diet. If able to tolerate, will discharge her. Pain control. Bowel regimen to be started once able to. Plan to discharge patient today. #Iron deficiency anemia ?Patient has a port for blood draws and transfusions. We will continue to monitor hemoglobin. No evidence of active bleed at this time. Full code Clear liquid diet Attestations Medical Necessity Statement*: Plan to discharge today. Coding Level of Care Code Acute Brand Ambassador Promotional Model for [facility] Fwd Diagnoses Incisional hernia K43.2 Small bowel obstruction K56.609 Nausea and vomiting R11.2 Iron deficiency anemia D50.9 GERD (gastroesophageal reflux disease) K21.9 Internal hemorrhoid K64.8
[2021-03-27 09:28] LABS: Basophils # 0.1 10^3/uL (0.0-0.1); Basophils % 1.1 %; Eosinophils # 0.6 10^3/uL (0.0-0.8); Eosinophils % 7.6 %; Hematocrit 36.1 % (37.0-47.0); Hemoglobin 11.3 g/dL (11.5-15.3); Lymphocytes # 1.1 10^3/uL (0.8-4.8); Lymphocytes % 14.1 %; Mean Corpuscular HGB Conc 31.3 g/dL (30.0-36.0); Mean Corpuscular Volume 89.4 fl (81-99); Mean Platelet Volume 9.2 fL (7.4-10.4); Monocytes # 0.9 10^3/uL (0.2-0.9); Monocytes % 12.5 %; Neutrophils # 4.52 10^3/uL (1.8-7.7); Neutrophils % 60.2 %; Nucleated Red Blood Cells % 0 %; Platelet Count 367 10^3/cmm (130-400); Red Blood Count 4.04 10^6/uL (4.1-5.3); Red Cell Distribution Width 19.5 % (12.1-15.1); White Blood Count 7.5 10^3/uL (4.0-10.0)
[2021-03-27 09:50] LABS: Blood Urea Nitrogen 4 mg/dL (8-23); Calcium 8.9 mg/dL (8.5-10.5); Carbon Dioxide 21 mmol/L (22-29); Chloride 106 mmol/L (98-107); Glomerular Filtration Rate 125.9 mL/min (90-130); Glucose 140 mg/dL (65-115); Osmolality Calculated 289 mOsm/kg (285-295); Sodium 140 mmol/L (136-145)
[2021-03-27] MEDS: ketorolac 30 mg/mL INJ 15 MG IVP (10:49)
[2021-03-27] MEDS: heparin 5,000 unit/mL INJ 1 mL 5000 UNIT SUBCUT (11:22)
--- NOTE | 2021-03-27 13:12 | XR_ITS ---
WS: [id number] ABDOMEN 1 VIEW(S) HISTORY: abd pain s/p colectomy COMPARISON: 03/24/2021 Slightly improved bowel gas pattern. There is a small amount of air at the rectum. No displacement of bowel loops. Prior cholecystectomy. No bone abnormality. XR/XR KUB portable [id number] IMPRESSION: Mild improvement in the bowel gas pattern. Less distention.
[2021-03-27] MEDS: D5-NS 0.45% + KCL 20 mEq 20 MEQ/1,000 ML BAG 100 MEQ IV (16:13)
[2021-03-27] MEDS: buPROPion SR (12 HR) 100 mg Tablet 200 MG PO (20:05)
[2021-03-28] VITALS: BP 128/74; PULSE 76; RESP 24; TEMP 36.9; O2SAT 95
[2021-03-28] MEDS: heparin 5,000 unit/mL INJ 1 mL 5000 UNIT SUBCUT (00:13)
[2021-03-28 04:00] VITALS: BP 128/75; PULSE 75; RESP 17; TEMP 37.2; O2SAT 97
[2021-03-28] MEDS: HYDROcodone-acetaminophen 5-325 mg Tablet PO ×2 (05:06→10:43)
--- NOTE | 2021-03-28 05:14 | PC.NURSE ---
SHIFT SUMMARY Has done well tonight. Has had left side abdominal pain c/o and has received po Hydrocodone for pain after discussion with Dr Lyons regarding pts pain and Dr Costa concern that surgeon may need to be called. Dr Lyons gave order to go ahead with pain meds. Pt is very pleasant and talkative. Has denied any nausea and is passing gas. No abd distention with BS present. No BM as of yet. Is voiding well. IV infusing at 50ml/hr rate.
[2021-03-28 05:43] LABS: Hematocrit 32.2 % (37.0-47.0); Hemoglobin 10.1 g/dL (11.5-15.3); Mean Corpuscular HGB Conc 31.4 g/dL (30.0-36.0); Mean Corpuscular Hemoglobin 28.2 pg (28.0-34.0); Mean Corpuscular Volume 89.9 fl (81-99); Mean Platelet Volume 9.2 fL (7.4-10.4); Platelet Count 357 10^3/cmm (130-400); Red Blood Count 3.58 10^6/uL (4.1-5.3); Red Cell Distribution Width 19.7 % (12.1-15.1); White Blood Count 6.7 10^3/uL (4.0-10.0)
[2021-03-28 06:04] LABS: Anion Gap 14.5 (5-19); Blood Urea Nitrogen 5 mg/dL (8-23); Carbon Dioxide 25 mmol/L (22-29); Chloride 108 mmol/L (98-107); Creatinine Clr Calc Pharmacy 109.1528; Glomerular Filtration Rate 125.9 mL/min (90-130); Glucose 121 mg/dL (65-115); Magnesium 1.7 mg/dL (1.7-2.3); Osmolality Calculated 297 mOsm/kg (285-295); Potassium 3.5 mmol/L (3.5-5.1); Sodium 144 mmol/L (136-145)
[2021-03-28 07:36] VITALS: BP 131/76; PULSE 90; RESP 17; TEMP 36.8; O2SAT 93
[2021-03-28] MEDS: buPROPion SR (12 HR) 100 mg Tablet 200 MG PO (08:01)
[2021-03-28] MEDS: pantoprazole 40 mg SDV IVP (08:01)
[2021-03-28] MEDS: polyethylene glycol 3350 Pkt 17 gm PO (08:02)
[2021-03-28 09:25] LABS: Slide Review Slide Review Perform
[2021-03-28 09:31] LABS: Absolute Eosinophils 0.3 10^3/cmm (0.0-0.7); Absolute Neutrophil 4.6 10^3/cmm (1.4-6.5); Absolute Segmented Neutrophil 4.2 10/cmm (1.6-7.1); Anisocytosis Trace; Band Neutrophils Absolute 0.4 10^3/cmm (0.0-1.2); Eosinophils 5 %; Lymphocytes 10 %; Lymphocytes Absolute 0.7 10^3/cmm (1.2-3.4); Monocytes Absolute 0.7 10^3/cmm (0.1-0.6); Platelet Estimate Normal (Normal); Segmented Neutrophils 62 %; Total Cells Counted 100 (0-100)
[2021-03-28 11:07] VITALS: BP 124/77; PULSE 73; RESP 16; TEMP 36.7; O2SAT 98
[2021-03-28 11:32] VITALS: PULSE 64; RESP 16; O2SAT 98
--- NOTE | 2021-03-28 11:58 | P.DS_ITS ---
Discharge Providers Date of Admission: 03/21/21 14:38 Date of Discharge: March 28, 2021 Attending Provider at Admission: Sobeida Saul MD Attending Provider at Discharge: Isa Degroot MD Primary Care Provider: Thanh Meyer MD Diagnoses at Discharge Discharge Diagnosis (1) Incisional hernia: Status: Resolved (2) Small bowel obstruction: Status: Resolved (3) Nausea and vomiting: Status: Resolved (4) Iron deficiency anemia: Status: Acute (5) GERD (gastroesophageal reflux disease): Status: Acute (6) Internal hemorrhoid: Status: Acute Reason for Visit Reason for Visit: Abdominal Swelling Hospital Course Hospital Course HPI as per Dr. Bravo Preeti Odom is a 61 year old female who carries history of iron deficiency anemia requiring multiple iron transfusions(Chronic anemia with recurrent episodes of iron deficiency with an extensive history of gastrointestinal disease, including GERD, history of perforated ulcer. Her prior surgeries include partial gastrectomy and partial small bowel resection with Billroth I anastomosis and partial colectomy in 2010) has a port A cath, in September 2020 which showed nonerosive gastritis and gastrojejunal anastomosis that was patent. Colonoscopy showed internal hemorrhoids and diverticulosis, attends behavioral health clinic for her anxiety came in with chief complaint of worsening abdominal pain. Patient is stating that she recently celebrated her 61th birthday, and last 1 week she started noticing abdominal bloating and distention, it gradually got worse, and today she started experiencing worsening abdominal pain mostly in right lower quadrant area which was associated with multiple episode of emesis. Her last bowel movement was 2 days ago. She mostly gets bowel movement on alternate days. Her bowel movements were alternate between solid to semisolid and liquid. Last month she finished ciprofloxacin and Flagyl course for enteritis. She is denying fever, recent diarrhea. Today she started experiencing multiple episode of emesis with excruciating 9/10 quality right lower quadrant pain which prompted her to visit the ER. In the ER she was diagnosed with small bowel obstruction, distended loops of bowel mild leukocytosis, lactic acid normal, she is hemodynamically stable, NG tube was displaced twice because of excessive coughing and retching She has tachypnea and tachycardia and mild leukocytosis which I believe is secondary to emesis, stress response, sepsis is likely diagnosis with enteritis CT/CT abdomen pelvis w con* [id number] IMPRESSION: 1. Stable partial gastrectomy with gastroduodenostomy. 2. Stable cholecystectomy. 3. Interval appearance of bowel wall thickening in the duodenum and proximal jejunum consistent with proximal enteritis. 4. Dilated loops of small bowel up to 4.4 cm in diameter in the distal jejunum and ileum with transition point in the right pelvis in the region of distal ileum consistent with high-grade small bowel obstruction. 5. Transition point in the right pelvis is seen on axial series 2, images 65-67 and coronal series 602, images 28-29. 6. Continued left para umbilical hernia containing segment of air-filled anterior wall of mid transverse colon. Previously this contained a loop of non incarcerated small bowel. The patient may be at risk for Laird's hernia. Axial series 2, images 42-47, sagittal series 601, image 38. Course Patient was admitted for small bowel obstruction. She underwent a laparotomy with Dr. Simpson. Incisional hernia repair was done and segmental small bowel resection was performed. Once she was able to tolerate a diet she was discharged home in stable condition. Please see last progress note for more details. Physical Exam Narrative: EXAM NARRATIVE: General: Alert oriented x3, patient seen this morning appearing comfortable in bed Cardio: Regular rate rhythm, normal S1-S2, Respiratory: Good bilateral air entry, no wheezes no rhonchi appreciated GI: Abdomen soft, nondistended, mildly tender to palpation around incisional area, no guarding no rebound tenderness. Extremities: no edema, no cyanosis Urinary Catheter Management^: Pope Latex: Cath Placed During This Visit: yes, but has since been removed by the nurse Reason for Continuing Indwelling Catheter: Required Immobilization for Trauma or Surgery or Anesthesia Urinary Catheter Date of Insertion: 03/22/21 Urinary Catheter Time of Insertion: 09:30 Date Urinary Catheter Removed: 03/24/21 Time Urinary Catheter Discontinued: 08:00 Discharge Data Data Completed and Pending: Completed Studies During Hospitalization Category Date Time Status CT abdomen pelvis w con* [id number] Urge nt Cat Scan 03/21/21 12:10 Completed XR KUB [id number] Urge nt Exams 03/21/21 14:57 Completed XR KUB portable 7 [id number] Routine Exams 03/24/21 07:00 Completed XR KUB portable 7 [id number] Stat Exams 03/27/21 13:12 Completed XR chest 1V gloria ble [id number] Routine Exams 03/25/21 15:52 Completed Pathology: Surgic al [PTH] Routine Pth 03/22/21 10:51 Completed Labs from last 24 hours 03/28/21 03/28/21 04:41 04:41 WBC 6.7 RBC 3.58 L Hgb 10.1 L Hct 32.2 L MCV 89.9 MCH 28.2 MCHC 31.4 RDW 19.7 H Plt Count 357 MPV 9.2 Lymph % (Auto) Not Reportable [place] % (Auto) Not Reportable Lymph # (Auto) Not Reportable [place] # (Auto) Not Reportable Total Counted 100 Atypical Lymphs % 0.0 Absolute Neutrophi ls 4.6 Segmented Neutroph ils 62 Abs Segm Neuts (Ma n) 4.2 Band Neutrophils 6.0 Abs Band Neuts (Ma n) 0.4 Absolute Lymphocyt es 0.7 L Lymphocytes (Manua l) 10 Monocytes (Manual) 11.0 Absolute Monocytes 0.7 H Eosinophils (Manua l) 5 Absolute Eosinophi ls 0.3 Basophils (Manual) 0.0 Absolute Basophils 0.0 Metamyelocytes 4.0 Myelocytes 2.0 Platelet Estimate Normal Anisocytosis Trace Sodium 144 Potassium 3.5 Chloride 108 H Carbon Dioxide 25 Anion Gap 14.5 BUN 5 L Creatinine 0.5 GFR Calculation 125.9 Glucose 121 H Calculated Osmolal ity 297 H Calcium 9.0 Magnesium 1.7 Vitals: Last Vital Signs Temp 98.1 F 03/28/21 11:07 Pulse 64 03/28/21 11:32 Resp 16 03/28/21 11:32 BP 124/77 03/28/21 11:07 Pulse Ox 98 03/28/21 11:32 Discharge Plan Discharge Patient Disposition: Home Condition: Stable Prescriptions: New hydrocodone-acetaminophen 5-325 mg tablet 1 - 2 tab PO Q5H PRN (Reason: pain) Qty: 30 RF: 0 Continued duloxetine [Cymbalta] 60 mg capsule,delayed release(DR/EC) 60 mg PO DAILY@08 RF: 0 montelukast [Singulair] 10 mg tablet 10 mg PO DAILY@20 RF: 0 tramadol 50 mg tablet 50 mg PO BID PRN (Reason: Pain) RF: 0 potassium chloride [Klor-Con 10] 10 mEq tablet extended release 10 meq PO BID@,20 RF: 0 loratadine [Claritin] 10 mg tablet 10 mg PO DAILY@08 RF: 0 hydrochlorothiazide 12.5 mg tablet 25 mg PO DAILY@08 RF: 0 [id number] [Dimeye-Ilnss-JPY (with antiox)] 500-500-66.7 mg tablet 1 tab PO DAILY@20 RF: 0 Wellbutrin SR 200 mg tablet sustained-release 12 hr 200 mg PO BID RF: 0 tizanidine 4 mg Tablet 4 mg PO Q8H PRN (Reason: Muscle Spasm) RF: 0 ondansetron HCl 4 mg tablet 4 mg PO Q4H PRN (Reason: Nausea And Vomiting) RF: 0 pantoprazole 40 mg tablet,delayed release (DR/EC) 40 mg PO BIDWMEAL Qty: 0 RF: 0 Held diphenhydramine HCl [Benadryl] 25 mg capsule 25 - 50 mg PO DAILY PRN (Reason: Allergy Symptoms) RF: 0 Hold Instructions: see pcp celecoxib [Celebrex] 100 mg Capsule 100 mg PO BID@, RF: 0 Hold Instructions: see pcp amitriptyline 50 mg tablet 50 mg PO DAILY@20 RF: 0 Hold Instructions: see pcp Discontinued nitrofurantoin monohyd/m-cryst [Macrobid] 100 mg capsule 100 mg PO BID Qty: 60 RF: 2 Discharge Orders: Discharge Order (Routine); Ordered 03/28/21 Ordered By: Isa Degroot Referrals: Tiago Simpson MD [Physician] - 03/31/21 (Nursing: Please have patient call Dr. Simpson's office on Tuesday ([phone]) and make an appointment to be seen the following week.) Thanh Meyer MD [Primary Care Provider] - 04/06/21 1:30 pm (PLEASE CALL FOR APPOINTMENT FOR 1 WEEK) Discharge Diet: Advance as tolerated Discharge Activity: Limit activity as instructed Patient Instructions: Constipation - Adult, Bowel Resection (DC), Opioid Safety Activity Restrictions/Additional Instructions: 1. Discharge to home today. 2. Appointment to see Dr. Simpson as above. 3. May shower at home as discussed. 4. [place] 5/325 1-2 tablets by mouth every 5 hours as needed for pain. #30, no refills. No lifting over 20 pounds, no repetitive bending or twisting, no strenuous pushing / pulling or other heavy activity. Ambulate regularly. May go up and down steps if needed. Discharge Attestations Time Spent in Discharge Care*: less than 30 min Status at Discharge: Cognitive status at discharge: cognitively intact , Behavioral status at discharge: cooperative , Quality Metrics Clinical Quality Measures During this hospital stay, did patient experience: None Coding Level of Care Code Acute Chg FW DC note Diagnoses Incisional hernia K43.2 Small bowel obstruction K56.609 Nausea and vomiting R11.2 Iron deficiency anemia D50.9 GERD (gastroesophageal reflux disease) K21.9 Internal hemorrhoid K64.8
[2021-03-28] MEDS: heparin 5,000 unit/mL INJ 1 mL 500 UNIT IVP (14:26)
== END 2021-03-28 14:59 | disposition home or self-care (01) | DRG 330 ==
LOC: ER 14:43 → MEDSURG 14:54
PROVIDERS: Surgery; Admitting Provider Internal Medicine; Emergency Provider Emergency Medicine; PCP Family Medicine; Visit Provider Internal Medicine
PROC: 0DT80ZZ Resection of Small Intestine, Open Approach (ICD-10-PCS; CPT 44120; principal; 2021-03-22 08:30)
PROC: 0DT80ZZ Resection of Small Intestine, Open Approach (ICD-10-PCS; CPT 49000; 2021-03-22 08:30)
PROC: 0DT80ZZ Resection of Small Intestine, Open Approach (ICD-10-PCS; 2021-03-22 08:30)
DX: K56.609 Unspecified intestinal obstruction, unspecified as to partial versus complete obstruction (principal); F33.9 Major depressive disorder, recurrent, unspecified; G89.29 Other chronic pain; M54.9 Dorsalgia, unspecified; K57.90 Diverticulosis of intestine, part unspecified, without perforation or abscess without bleeding; M79.7 Fibromyalgia; D50.0 Iron deficiency anemia secondary to blood loss (chronic); M81.0 Age-related osteoporosis without current pathological fracture; Z87.11 Personal history of peptic ulcer disease; Z87.891 Personal history of nicotine dependence; Z90.49 Acquired absence of other specified parts of digestive tract; Z90.3 Acquired absence of stomach [part of]; K43.2 Incisional hernia without obstruction or gangrene; K64.8 Other hemorrhoids; K21.9 Gastro-esophageal reflux disease without esophagitis; K52.9 Noninfective gastroenteritis and colitis, unspecified
CPT/HCPCS: 36415; 36591; 51702; 71045; 74018; 74177; 80048; 80053; 81001; 83605; 83690; 83735; 85007; 85025; 88307; 94640; 96361; 96372; 96374; 96375; 96376; 99285; C9113; C9290; J0330; J0690; J1100; J1170; J1644; J1885; J2250; J2270; J2405; J2543; J2704; J2710; J3010; J3475; J3480; J3490; J7030; J7614; Q9967

== ENCOUNTER 2021-04-10 20:27 | Emergency (ER) | payer MEDICAID, SELFPAY ==
[2021-04-10 20:34] VITALS: BP 139/83; PULSE 82; RESP 18; TEMP 36.6; O2SAT 96; BMI 23.0
--- NOTE | 2021-04-10 20:47 | CTR_ITS ---
PROCEDURE INFORMATION: Exam: CT Abdomen And Pelvis With Contrast Exam date and time: 04/10/2021 8:47 PM Age: 61 years old Clinical indication: Abdominal pain; Localized; Lower; Prior surgery; Surgery type: Breast, hyst, appy, gastrectomy, gb, port, hernia, small bowel resection; Additional info: Abd pain TECHNIQUE: Imaging protocol: Computed tomography of the abdomen and pelvis with contrast. Radiation optimization: All CT scans at this facility use at least one of these dose optimization techniques: automated exposure control; mA and/or kV adjustment per patient size (includes targeted exams where dose is matched to clinical indication); or iterative reconstruction. Contrast material: OMNI 300; Contrast volume: 75 ml; Contrast route: INTRAVENOUS (IV); COMPARISON: CT abdomen pelvis w con* [id number] 03/21/2021 2:21 PM RADIATION DOSE METRICS: Total DLP (mGy-cm): 895.67 FINDINGS: Liver: Normal. No mass. Gallbladder and bile ducts: Stable cholecystectomy. Pancreas: Normal. No ductal dilation. Spleen: Normal. No splenomegaly. Adrenal glands: Normal. No mass. Kidneys and ureters: Left renal simple cyst measuring >1.0 cm. Stomach and bowel: Interval small bowel anastomosis in the right lower quadrant with partial resection of small bowel. Stable partial gastric resection and gastroenterostomy. Appendix: No evidence of appendicitis. Intraperitoneal space: Unremarkable. No free air. No significant fluid collection. Vasculature: Calcification of the abdominal aorta and/or iliac arteries consistent with atherosclerotic vessel disease. Lymph nodes: Unremarkable. No enlarged lymph nodes. Urinary bladder: Unremarkable as visualized. Reproductive: Stable hysterectomy. Bones/joints: Unremarkable. No acute fracture. Soft tissues: Interval repair of umbilical hernia. 3.6 x 3.3 x 2.4 cm lesion with fluid-fluid level in the subcutaneous fat of the midline laparotomy scar, 7 cm inferior to the umbilicus, most consistent with residual postoperative fluid collection with fat fluid level with or without infection. Axial series 2, image 63. CT/CT abdomen pelvis w con* [id number] IMPRESSION: 1. Interval small bowel anastomosis in the right lower quadrant with partial resection of small bowel. 2. Interval repair of umbilical hernia. 3. 3.6 x 3.3 x 2.4 cm lesion with fluid-fluid level in the subcutaneous fat of the midline laparotomy scar, 7 cm inferior to the umbilicus, most consistent with residual postoperative fluid collection with fat fluid level with or without infection. Axial series 2, image 63. COMMENTS: Consistent with the [employer]'s Incidental Findings Committee white paper (J Am Naomy Radiol 2018): Any incidental renal lesion less than 1 cm or classified as too small to characterize, or any incidental cystic renal lesion characterized as simple-appearing, is likely benign. No follow-up imaging is recommended for these lesions per consensus recommendations based on imaging criteria.
[2021-04-10 21:03] LABS: Basophils # 0.1 10^3/uL (0.0-0.1); Eosinophils # 0.2 10^3/uL (0.0-0.8); Eosinophils % 3.8 %; Hematocrit 30.7 % (37.0-47.0); Hemoglobin 9.8 g/dL (11.5-15.3); Lymphocytes # 0.9 10^3/uL (0.8-4.8); Lymphocytes % 14.7 %; Mean Corpuscular HGB Conc 31.9 g/dL (30.0-36.0); Mean Corpuscular Hemoglobin 28.2 pg (28.0-34.0); Mean Corpuscular Volume 88.5 fl (81-99); Mean Platelet Volume 9.6 fL (7.4-10.4); Monocytes % 16.8 %; Neutrophils # 3.84 10^3/uL (1.8-7.7); Neutrophils % 63.2 %; Nucleated Red Blood Cells % 0 %; Platelet Count 277 10^3/cmm (130-400); Red Blood Count 3.47 10^6/uL (4.1-5.3); Red Cell Distribution Width 17.5 % (12.1-15.1); White Blood Count 6.1 10^3/uL (4.0-10.0)
[2021-04-10] MEDS: iohexol 300 mg/mL 100 mL Btl IV (21:03)
--- NOTE | 2021-04-10 21:03 | ED_ITS ---
HPI - Abdominal Pain General: Chief Complaint: Abdominal Pain Stated Complaint: ABD Pain, past surgry history Time Seen by Provider: 04/10/21 20:43 Source: patient Mode of arrival: ambulatory Limitations: no limitations History of Present Illness: HPI narrative: 61-year-old female states that she had surgery here 3 weeks ago. She was admitted for a bowel obstruction had surgery to take down adhesions the surgery was open. States she been feeling well but over the last 2 days she had some increased abdominal pain and had some erythema to her lower abdomen. She denies any fever states pain sharp in nature rates it a 6 out of 10 denies any worsening improving factors. Associated Symptoms: Denies chills, dysuria and fever(s) Review of Systems Const: Denies: fever(s), chills, body aches or change in appetite Eyes: Denies: blurry vision or eye discomfort ENMT: Denies: throat pain or dental pain Card: Denies: chest pain Resp: Denies: dyspnea GI: Reports: abdominal pain : Denies: dysuria Musc: Denies: neck pain or back pain Skin/Breast: Denies: rash Neuro: Denies: headache(s) Psych: Denies: depression Vadim/Lymph: Denies: easy bruising All/Imm: Denies: urticaria PFSH ED PFSH: Medical History Chronic back pain Constipation Cystitis cystica Depression Diverticulosis Fibromyalgia Iron deficiency anemia Major depressive disorder, recurrent, mild Osteoporosis Peptic ulcer disease Status post extracorporeal shock wave therapy URETERAL STENT PLACEMENT Undifferentiated somatoform disorder Surgical History H/O bilateral breast reduction surgery H/O colonoscopy (10/14/20) Diverticulosis H/O rhinoplasty Nasal fracture H/O right knee surgery H/O: hysterectomy For fibroid and endometriosis / BSO History of appendectomy History of bone marrow biopsy History of partial gastrectomy Secondary to peptic ulcer disease, perforated ulcer / partial transverse colectomy with reanastomosis ([place], [place]) History of tonsillectomy Hx of cholecystectomy Port-A-Cath in place Placed for transfusions for chronic anemia S/P LASIK surgery of both eyes Family History Father , IN HIS 50'S No problems noted. Mother , AT AGE 78 Cancer OVARIAN Other Hypertension Psychiatric illness Social History Smoking and tobacco status: former smoker Alcohol intake: never Adopted: No Caregiver/support person: No Housing: House Marital status: Current occupational status: disabled History of recent travel: No Physical Exam Const: COMMON NORMALS: no acute distress, patient oriented x3 and healthy appearing HENMT: COMMON NORMALS: normocephalic and atraumatic HEAD & SCALP: normocephalic and atraumatic Eye: COMMON NORMALS: Equal, round and reactive pupils present and EOMs intact bilaterally PUPIL: Yes Equal, round and reactive pupils present Neck/C-Spine: COMMON NORMALS: full ROM and supple Chest: COMMONS NORMALS: normal inspection of the chest and normal palpation of entire chest wall Resp: COMMON NORMALS: normal respiratory effort, No retractions, No use of accessory muscles and clear to auscultation bilaterally AUSCULTATION: clear to auscultation bilaterally Cardio: COMMON NORMALS: regular rate, regular rhythm and No murmurs present (Cardio) RATE: regular rate RHYTHM: regular rhythm GI: COMMON NORMALS: Soft to palpation and no masses PALPATION: Yes Soft to palpation OTHER: Slight tenderness lower abdomen patient does have a incision and its clean dry intact has some slight erythema along the edges no drainage no warmth to touch Extremity: COMMON NORMALS: normal to inspection and full ROM Neuro: COMMON NORMALS: patient oriented x3, moves all extremities and no focal motor deficits Psych: COMMON NORMALS: mental status grossly normal, Normal thought process present and cooperative THOUGHT PROCESS: Normal thought process present Skin: COMMON NORMALS: no rashes or lesions noted and no wounds GENERAL SKIN EXAM: no rashes or lesions noted Course Vital Signs: Vital signs: Vital Signs Temperature 97.9 F 04/10/21 20:34 Pulse Rate 82 04/10/21 20:34 Respiratory Rate 18 04/10/21 21:35 Blood Pressure 139/83 04/10/21 20:34 Pulse Oximetry 96 04/10/21 20:34 MDM - Abdominal Pain MDM Narrative: Medical decision making narrative: Patient presents here with abdominal pain CT did show a fluid collection patient is afebrile here exam shows no drainage white counts normal I did speak to her surgeon Dr. Simpson who just recommended follow-up he does not want antibiotics at this time she has no signs of infection patient pain here is improved will prescribe her pain meds she is return to ER if worsening she is to follow-up with Dr. Simpson next week. Lab Data: Labs: Lab Results 04/10/21 04/10/21 04/10/21 20:55 20:55 20:55 WBC 6.1 10^3/uL 10^3/ uL (4.0-10.0) RBC 3.47 10^6/uL L 10 ^6/uL (4.1-5.3) Hgb 9.8 g/dL L g/dL (11.5-15.3) Hct 30.7 % L % (37.0-47.0) MCV 88.5 fl fl (81-99) MCH 28.2 pg pg (28.0-34.0) MCHC 31.9 g/dL g/dL (30.0-36.0) RDW 17.5 % H % (12.1-15.1) Plt Count 277 10^3/cmm 10^3 /cmm (130-400) MPV 9.6 fL fL (7.4-10.4) Neut % (Auto) 63.2 % % Lymph % (Auto) 14.7 % % [place] % (Auto) 16.8 % % Eos % (Auto) 3.8 % % Baso % (Auto) 1.0 % % Neut # (Auto) 3.84 10^3/uL 10^3 /uL (1.8-7.7) Lymph # (Auto) 0.9 10^3/uL 10^3/ uL (0.8-4.8) [place] # (Auto) 1.0 10^3/uL H 10^ 3/uL (0.2-0.9) Eos # (Auto) 0.2 10^3/uL 10^3/ uL (0.0-0.8) Baso # (Auto) 0.1 10^3/uL 10^3/ uL (0.0-0.1) Nucleated RBC % (a uto) 0 % % Nucleated RBCs # 0.0 /100WBC /100W BC Sodium 141 mmol/L mmol/L (136-145) Potassium 3.3 mmol/L L mmol /L (3.5-5.1) Chloride 109 mmol/L H mmol /L (98-107) Carbon Dioxide 19 mmol/L L mmol/ L (22-29) Anion Gap 16.3 (5-19) BUN 7 mg/dL L mg/dL (8-23) Creatinine 0.6 mg/dL mg/dL (0.5-0.9) GFR Calculation 102.0 mL/min mL/m in (90-130) Glucose 87 mg/dL mg/dL (65-115) Calculated Osmolal ity 289 mOsm/kg mOsm/ kg (285-295) Lactate 0.6 mmol/L mmol/L (0.5-2.2) Calcium 8.3 mg/dL L mg/dL (8.5-10.5) Total Bilirubin 0.2 mg/dL mg/dL (0.15-1.2) AST 11 U/L U/L (0-32) ALT 8 U/L U/L (0-33) Alkaline Phosphata se 107 IU/L H IU/L (35-105) Total Protein 5.5 g/dL L g/dL (6.6-8.7) Albumin 3.7 g/dL g/dL (3.5-5.2) Globulin 1.8 g/dL g/dL (1.3-4.6) Lipase 25 U/L U/L (13-60) Urine Color Urine Appearance Urine pH Ur Specific Gravit y Urine Protein Urine Glucose (UA) Urine Ketones Urine Blood Urine Nitrate Urine Bilirubin Urine Urobilinogen Ur Leukocyte Diane ase 04/10/21 21:30 WBC RBC Hgb Hct MCV MCH MCHC RDW Plt Count MPV Neut % (Auto) Lymph % (Auto) [place] % (Auto) Eos % (Auto) Baso % (Auto) Neut # (Auto) Lymph # (Auto) [place] # (Auto) Eos # (Auto) Baso # (Auto) Nucleated RBC % (a uto) Nucleated RBCs # Sodium Potassium Chloride Carbon Dioxide Anion Gap BUN Creatinine GFR Calculation Glucose Calculated Osmolal ity Lactate Calcium Total Bilirubin AST ALT Alkaline Phosphata se Total Protein Albumin Globulin Lipase Urine Color Yellow (Yellow) Urine Appearance Clear (CLEAR) Urine pH 7 (5-7) Ur Specific Gravit y 1.005 (1.005-1.030) Urine Protein Neg (Negative) Urine Glucose (UA) Norm (Normal) Urine Ketones Negative (Negative) Urine Blood Neg (Negative) Urine Nitrate Negative (Negative) Urine Bilirubin Neg (Negative) Urine Urobilinogen Norm mg/dL mg/dL (Negative) Ur Leukocyte Diane ase Negative (Negative) Imaging Data ^: CT Abd/Pel: Attestation: I personally reviewed and interpreted this imaging study as follows: Radiologist's impression: [employer] [address] [address] Scan Report Signed Patient: Preeti Odom Unit #: [id number] : 1960 Age/Sex: 61 / F ADM Date: 04/10/21 Loc: ER Room/Bed: Attending Dr: Ordering Provider/Ordering MD: Alban Ackerman MD Date of Service: 04/10/21 Procedure(s): CT abdomen pelvis w con* [id number] Accession Number(s): [id number] Report Number: [id number] PROCEDURE INFORMATION: Exam: CT Abdomen And Pelvis With Contrast Exam date and time: 04/10/2021 8:47 PM Age: 61 years old Clinical indication: Abdominal pain; Localized; Lower; Prior surgery; Surgery type: Breast, hyst, appy, gastrectomy, gb, port, hernia, small bowel resection; Additional info: Abd pain TECHNIQUE: Imaging protocol: Computed tomography of the abdomen and pelvis with contrast. Radiation optimization: All CT scans at this facility use at least one of these dose optimization techniques: automated exposure control; mA and/or kV adjustment per patient size (includes targeted exams where dose is matched to clinical indication); or iterative reconstruction. Contrast material: OMNI 300; Contrast volume: 75 ml; Contrast route: INTRAVENOUS (IV); COMPARISON: CT abdomen pelvis w con* [id number] 03/21/2021 2:21 PM RADIATION DOSE METRICS: Total DLP (mGy-cm): 895.67 FINDINGS: Liver: Normal. No mass. Gallbladder and bile ducts: Stable cholecystectomy. Pancreas: Normal. No ductal dilation. Spleen: Normal. No splenomegaly. Adrenal glands: Normal. No mass. Kidneys and ureters: Left renal simple cyst measuring >1.0 cm. Stomach and bowel: Interval small bowel anastomosis in the right lower quadrant with partial resection of small bowel. Stable partial gastric resection and gastroenterostomy. Appendix: No evidence of appendicitis. Intraperitoneal space: Unremarkable. No free air. No significant fluid collection. Vasculature: Calcification of the abdominal aorta and/or iliac arteries consistent with atherosclerotic vessel disease. Lymph nodes: Unremarkable. No enlarged lymph nodes. Urinary bladder: Unremarkable as visualized. Reproductive: Stable hysterectomy. Bones/joints: Unremarkable. No acute fracture. Soft tissues: Interval repair of umbilical hernia. 3.6 x 3.3 x 2.4 cm lesion with fluid-fluid level in the subcutaneous fat of the midline laparotomy scar, 7 cm inferior to the umbilicus, most consistent with residual postoperative fluid collection with fat fluid level with or without infection. Axial series 2, image 63. CT/CT abdomen pelvis w con* [id number] IMPRESSION: 1. Interval small bowel anastomosis in the right lower quadrant with partial resection of small bowel. 2. Interval repair of umbilical hernia. 3. 3.6 x 3.3 x 2.4 cm lesion with fluid-fluid level in the subcutaneous fat of the midline laparotomy scar, 7 cm inferior to the umbilicus, most consistent with residual postoperative fluid collection with fat fluid level with or without infection. Axial series 2, image 63. COMMENTS: Consistent with the [employer]'s Incidental Findings Committee white paper (J Am Naomy Radiol 2018): Any incidental renal lesion less than 1 cm or classified as too small to characterize, or any incidental cystic renal lesion characterized as simple-appearing, is likely benign. No follow-up imaging is recommended for these lesions per consensus recommendations based on imaging criteria. Dictated By: Agustín Teixeira MD Signed By: Agustín Teixeira MD Signed Date/Time: 04/10/212236 DD/ 46 Discharge Plan Discharge Patient Disposition: Home Clinical Impression: Abdominal pain Condition: Stable Prescriptions: New hydrocodone-acetaminophen 5-325 mg tablet 1 tab PO Q6H PRN (Reason: pain) Qty: 14 RF: 0 No Action duloxetine [Cymbalta] 60 mg capsule,delayed release(DR/EC) 60 mg PO DAILY@08 RF: 0 montelukast [Singulair] 10 mg tablet 10 mg PO DAILY@20 RF: 0 diphenhydramine HCl [Benadryl] 25 mg capsule 25 - 50 mg PO DAILY PRN (Reason: Allergy Symptoms) RF: 0 Hold Instructions: see pcp tramadol 50 mg tablet 50 mg PO BID PRN (Reason: Pain) RF: 0 potassium chloride [Klor-Con 10] 10 mEq tablet extended release 10 meq PO BID@08,20 RF: 0 loratadine [Claritin] 10 mg tablet 10 mg PO DAILY@08 RF: 0 hydrochlorothiazide 12.5 mg tablet 25 mg PO DAILY@08 RF: 0 higrunti-jov-[id number] [Fewezq-Wzztb-NFZ (with antiox)] 500-500-66.7 mg tablet 1 tab PO DAILY@20 RF: 0 Wellbutrin SR 200 mg tablet sustained-release 12 hr 200 mg PO BID RF: 0 tizanidine 4 mg Tablet 4 mg PO Q8H PRN (Reason: Muscle Spasm) RF: 0 celecoxib [Celebrex] 100 mg Capsule 100 mg PO BID@08,20 RF: 0 Hold Instructions: see pcp amitriptyline 50 mg tablet 50 mg PO DAILY@20 RF: 0 Hold Instructions: see pcp ondansetron HCl 4 mg tablet 4 mg PO Q4H PRN (Reason: Nausea And Vomiting) RF: 0 pantoprazole 40 mg tablet,delayed release (DR/EC) 40 mg PO BIDWMEAL Qty: 0 RF: 0 hydrocodone-acetaminophen 5-325 mg tablet 1 - 2 tab PO Q5H PRN (Reason: pain) Qty: 30 RF: 0 Discharge Orders: Discharge ED (Routine); Ordered 04/10/21 Ordered By: Alban Ackerman Referrals: Tiago Simpson MD [Physician] - 1-3 days Thanh Meyer MD [Primary Care Provider] - 1-3 days Discharge Diet: Advance as tolerated Discharge Activity: Resume usual activity Patient Instructions: Abdominal Pain (ED) Coding Level of Care Code ED Sales Service Representative for Kristing Fwd Exam Comprehensive
[2021-04-10] MEDS: sodium chloride 0.9% 1,000 ML 999 ML IV (21:16)
[2021-04-10 21:22] LABS: Alanine Aminotransferase 8 U/L (0-33); Albumin Level 3.7 g/dL (3.5-5.2); Alkaline Phosphatase 107 IU/L (35-105); Anion Gap 16.3 (5-19); Aspartate Amino Transferase 11 U/L (0-32); Blood Urea Nitrogen 7 mg/dL (8-23); Calcium 8.3 mg/dL (8.5-10.5); Carbon Dioxide 19 mmol/L (22-29); Chloride 109 mmol/L (98-107); Globulin 1.8 g/dL (1.3-4.6); Glucose 87 mg/dL (65-115); Lipase 25 U/L (13-60); Osmolality Calculated 289 mOsm/kg (285-295); Potassium 3.3 mmol/L (3.5-5.1); Sodium 141 mmol/L (136-145); Total Bilirubin 0.2 mg/dL (0.15-1.2); Total Protein 5.5 g/dL (6.6-8.7)
[2021-04-10 21:23] LABS: Lactate (Lactic Acid level) 0.6 mmol/L (0.5-2.2)
[2021-04-10 21:35] VITALS: RESP 18
[2021-04-10] MEDS: HYDROmorphone 1 mg/mL INJ 1 mL 0.5 MG IVP (21:35)
[2021-04-10 21:41] LABS: Add Urine Microscopic? NO; Charge for UA Resulting for Rev
[2021-04-10 21:48] LABS: Bilirubin Urine Neg (Negative); Blood Urine Neg (Negative); Glucose Urine UA Norm (Normal); Ketones Urine Negative (Negative); Leukocyte Esterase Urine Negative (Negative); Nitrate Urine Negative (Negative); Protein Urine Neg (Negative); Specific Gravity, Urine 1.005 (1.005-1.030); Urine Appearance Clear (CLEAR); Urine Color Yellow (Yellow); Urobilinogen Urine Norm (Negative); pH Urine 7 (5-7)
== END 2021-04-10 23:00 | disposition home or self-care (01) ==
PROVIDERS: Emergency Provider Emergency Medicine; PCP Family Medicine
DX: R10.9 Unspecified abdominal pain (principal); Z87.891 Personal history of nicotine dependence
CPT/HCPCS: 74177; 80053; 81003; 83605; 83690; 85025; 96361; 96374; 99284; J1170; J7030; Q9967

== ENCOUNTER 2021-04-23 06:39 | Outpatient (CLI) | payer MEDICAID, SELFPAY ==
[2021-04-23 09:43] LABS: Basophils % 0.7 %; Eosinophils # 0.3 10^3/uL (0.0-0.8); Eosinophils % 5.7 %; Hematocrit 38.5 % (37.0-47.0); Hemoglobin 12.5 g/dL (11.5-15.3); Lymphocytes % 17.3 %; Mean Corpuscular HGB Conc 32.5 g/dL (30.0-36.0); Mean Corpuscular Hemoglobin 28.7 pg (28.0-34.0); Mean Corpuscular Volume 88.3 fl (81-99); Mean Platelet Volume 9.5 fL (7.4-10.4); Monocytes # 0.5 10^3/uL (0.2-0.9); Neutrophils # 3.71 10^3/uL (1.8-7.7); Neutrophils % 65.7 %; Nucleated Red Blood Cells % 0 %; Platelet Count 263 10^3/cmm (130-400); Red Blood Count 4.36 10^6/uL (4.1-5.3); Red Cell Distribution Width 16.2 % (12.1-15.1); White Blood Count 5.7 10^3/uL (4.0-10.0)
[2021-04-23 09:46] LABS: Ferritin 309 ng/mL (15-150); Iron 99 ug/dL (37-145); Percent Saturation 36.2 % (20-50); Total Iron Binding Capacity 273 mcg/dl; Unsaturated Iron Binding 174 ug/dL (112-347)
== END 2021-04-23 06:40 | disposition home or self-care (01) ==
LOC: ONCMED 06:39
PROVIDERS: Internal Medicine Medical Oncology; PCP Family Medicine; Visit Provider Nurse Practitioner Family
DX: D50.9 Iron deficiency anemia, unspecified (principal); K21.9 Gastro-esophageal reflux disease without esophagitis; N30.20 Other chronic cystitis without hematuria; M79.7 Fibromyalgia; M19.90 Unspecified osteoarthritis, unspecified site; M81.0 Age-related osteoporosis without current pathological fracture; M54.50 Low back pain, unspecified; G89.29 Other chronic pain; R51.9 Headache, unspecified; F41.9 Anxiety disorder, unspecified; F32.9 Major depressive disorder, single episode, unspecified; Z79.899 Other long term (current) drug therapy; Z87.11 Personal history of peptic ulcer disease; Z87.19 Personal history of other diseases of the digestive system; Z87.448 Personal history of other diseases of urinary system
CPT/HCPCS: 36591; 82728; 83540; 83550; 85025; 99214

== ENCOUNTER → 2021-05-11 09:19 | Outpatient (BNVA) | payer MEDICAID, SELFPAY | PROVIDERS: PCP Family Medicine; Visit Provider Nurse Practitioner Family | DX: N30.80 Other cystitis without hematuria (principal) | CPT/HCPCS: 81003 ==

== ENCOUNTER → 2021-06-23 11:40 | Outpatient (BNVA) | payer MEDICAID, SELFPAY | PROVIDERS: PCP Family Medicine; Visit Provider Nurse Practitioner | DX: F33.0 Major depressive disorder, recurrent, mild (principal) | CPT/HCPCS: 90792 ==

== ENCOUNTER → 2021-07-14 12:46 | Outpatient (BNVA) | payer MEDICAID, SELFPAY | PROVIDERS: PCP Family Medicine; Visit Provider Nurse Practitioner Family | DX: N32.81 Overactive bladder (principal) | CPT/HCPCS: 81003; 87086 ==

== ENCOUNTER 2021-07-23 13:26 | Outpatient (CLI) | payer MEDICAID, SELFPAY ==
[2021-07-23 14:13] LABS: Basophils % 0.5 %; Eosinophils # 0.2 10^3/uL (0.0-0.8); Eosinophils % 3.3 %; Hematocrit 35.3 % (37.0-47.0); Hemoglobin 11.3 g/dL (11.5-15.3); Lymphocytes # 0.9 10^3/uL (0.8-4.8); Lymphocytes % 15.3 %; Mean Corpuscular Hemoglobin 30.3 pg (28.0-34.0); Mean Corpuscular Volume 94.6 fl (81-99); Mean Platelet Volume 9.5 fL (7.4-10.4); Monocytes # 0.5 10^3/uL (0.2-0.9); Monocytes % 9.5 %; Neutrophils # 4.04 10^3/uL (1.8-7.7); Nucleated Red Blood Cells % 0 %; Platelet Count 244 10^3/cmm (130-400); Red Blood Count 3.73 10^6/uL (4.1-5.3); White Blood Count 5.7 10^3/uL (4.0-10.0)
[2021-07-23 14:41] LABS: Ferritin 74 ng/mL (15-150); Iron 53 ug/dL (37-145); Percent Saturation 15.1 % (20-50); Total Iron Binding Capacity 349 mcg/dl; Unsaturated Iron Binding 296 ug/dL (112-347)
--- NOTE | 2021-07-23 20:07 | ONC FU_ITS ---
Kathy Onofre Progress Note Patient: Preeti Odom Unit #: [id number]: 1960 Dicatated By: Kathy Onofre N.P.Date of Visit:Jul 23, 2021 Onc MED Follow-up/Prog Note Chief Complaint: Anemia. History of Present Illness: This is a 60 year-old woman with a mild chronic anemia. She had chronic iron deficiency anemia for 13 years prior to presentation, requiring Port-A-Cath placement and frequent IV iron administration. She underwent a total abdominal hysterectomy for fibroid uterus and endometriosis in 1994, followed by bilateral oophorectomies in 1996. She had a history of perforated bleeding peptic ulcer disease, requiring extensive surgery with en-block resection, partial gastrectomy, small bowel resection, and colectomy in [address] In 2012 she had an acute on chronic anemia, for which she received a course of IV iron over about one year. She reported having endoscopy, colonoscopy, bone marrow biopsy performed at the [address] Those records were not available. Laboratory analysis in on 11/21/2014 showed normal CBC analysis, MCV 88, iron panel unremarkable. She had then relocated to [facility]. She was first seen by Dr. Fonseca on 05/16/2015. Iron deficiency was confirmed, hemoglobin 10.8 g/dL. Hemoccult positive. She was given parenteral iron replacement with a single infusion of Injectafer, completed on 06/12/2015. She was seen for a follow-up visit on 07/19/2016. She was still mildly anemic. Her further laboratory studies on 08/31/2016 showed hemoglobin just borderline low at 12.4 g. Her serum iron studies, though, did show low transferrin saturation at 12%, consistent with iron deficiency. She was having significant fatigue, and at that point I did opt to give her another infusion of Injectafer, which she completed on 09/03/2016. I had seen her for a followup visit in January 2017. At that time she was still mildly anemic, but her transferrin saturation and ferritin level were normal, and I opted to just continue observation/expectant management. Her other medical illnesses include GERD/peptic ulcer disease, fibromyalgia, degenerative arthritis, osteoporosis, and depression. She has chronic back pain, and she has chronic headaches. She had smoked in the past, but she quit smoking 17 years ago. INTERIM HISTORY: As of August 2017 her studies were again consistent with iron deficiency, transferrin saturation 17% and ferritin level 26 ng/mL. She was given a single infusion of Injectafer. Her repeat CBC in January 2019 showed hemoglobin adequate at 12.4 g with transferrin saturation 29% and ferritin level 54 ng/mL. At her followup visit in June 2018 her hemoglobin had declined just slightly, but her transferrin saturation and ferritin were consistent with iron deficiency, and she was given an additional infusion of Injectafer. Her repeat laboratory studies on 10/10/2018 again showed adequate hemoglobin at 12.0 g with slightly low transferrin saturation and normal ferritin. She was found to have low potassium at 2.9 mmol/L, and she then began on an oral potassium supplement. As of her follow-up been November 2018 her hemoglobin was stable at 11.9 g with transferrin saturation slightly low at 17.1% but with ferritin normal at 141 ng/mL. On 10/14/2019 she was admitted to the hospital with left obstructive pyelonephritis. She underwent cystoscopy with left ureteral stent placement for a large left mid ureteral stone. The stent was later removed. As of 10/25/2019 her hemoglobin had declined to 9.3 g with hematocrit 30.1%. Her transferrin saturation was low at 14%, consistent with iron deficiency. She was then given parenteral iron replacement with 2 infusions of Injectafer, which she tolerated well. On 01/29/2021 she was given Injectafer x2 doses 2 weeks apart. She tolerated it well. She had small bowel resection by Dr. Simpson on 03/22/2021 due to obstruction caused by adhesions. She presents today for follow-up of iron deficiency anemia. She states she has been somewhat more tired lately. Her appetite has been good. She denies fever, chills, hot sweats. She denies shortness of breath, cough, chest pain. She has not noted any blood in her stool and no hematuria. Review Of Symptoms: See above. Past Medical History: Anxiety Depression Fibromyalgia Gastroesophageal reflux disease History of bleeding and perforated peptic ulcer disease in 2010 Past Surgical History: Breast reduction Cholecystectomy LASIK surgery Rhinoplasty Rinoplasty Tonsillectomy Flu Vaccine in 2017 - Given in left deltoid./lc Extensive en bloc resection of the stomach, small bowel and colon. in 2010 Bilateral oophorectomy in 1996 Total abdominal hysterectomy in 1994 Allergies: No Known Allergies. Medications: Amitriptyline HCl 1 (25 mg) Tablet Oral at bedtime BuPROPion HCl 1 Tablet (of 150 mg) Oral b.i.d. CeleBREX 1 Capsule Oral b.i.d. Cyclobenzaprine HCl 1 (5 mg) Tablet Oral b.i.d. PRN Cymbalta 1 Tablet Capsule Delayed Release Particles Oral daily Excedrin Migraine Tablet Oral PRN Glucosamine Chondr Complex Capsule Oral b.i.d. Pantoprazole Sodium 1 Tablet (of 40 mg) Tablet, enteric coated Oral b.i.d. traMADol HCl 1 Tablet (of 50 mg) Oral b.i.d. Family History: Ms. Odom's mother is alive: lung cancer. Ms. Odom's father at age 65. Social History: Ms. Odom is and she is a disabled. Ms. Odom has never smoked. She has no history of drinking. Ms. Odom reports the following support systems: lives alone, lives in own house, and transportation problems exist and will require assistance. Her diet consists of regular meals. She indicates her activity level as: daily activities. Physical Examination: Performed on Jul 23, 2021 15:03: Height - 60.00 in, Weight - 128.2 lbs (HIGH), BSA - 1.55 sq.m, BMI - 25.04, Temperature - 97.6 F (LOW), Pulse - 92 /min, Respiration - 16 /min, BP - 157/80 mm(hg) (HIGH), O2 Sat - 97 %, Pain - 7, and Fatigue - 4. Performance Status: 0 - Fully active, able to carry on all predisease activities without restrictions. (ECOG) Constitutional Alert, cooperative, oriented. Mood and affect appropriate. Appears close to chronological age. Well nourished. Well developed. Respiratory Lungs are clear to auscultation without rhonchi or wheezing. Cardiovascular Regular rate and rhythm of heart without murmurs, gallops or rubs. Abdomen Non-tender, non-distended, no masses, ascites or hepatosplenomegaly. Good bowel sounds. No guarding or rebound tenderness. Extremities No edema Musculoskeletal No tenderness or swelling, normal range of motion without obvious weakness. Psychiatric Alert and oriented times three. Coherent speech. Verbalizes understanding of our discussions today. Laboratory: Test performed on Jul 23, 2021 13:51 Ferritin 74 ng/mL Iron 53 mcg/dL Iron Binding Capacity (TIBC) 349 mcg/dl % Iron Saturation 15.1 % UIBC 296 mcg/dL WBC 5.7 10 3/uL RBC 3.73 10 6/uL HGB 11.3 g/dL HCT 35.3 % MCV 94.6 fl MCH 30.3 pg MCHC 32.0 g/dL RDW 13.0 % Platelet Count 244 10 3/cmm MPV 9.5 fL Neutrophils 4.04 10 3/uL Lymphocytes 0.9 10 3/uL Monocytes 0.5 10 3/uL Eosinophils 0.2 10 3/uL Basophils 0.0 10 3/uL Neutrophil % 71.0 % Lymphocyte % 15.3 % Monocyte % 9.5 % Eosinophil % 3.3 % Basophils % 0.5 % NRBC % 0 % Impression: 1. Chronic anemia with recurrent episodes of iron deficiency. 2. She has an extensive history of gastrointestinal disease, including GERD and history of perforated ulcer. Her prior surgeries include partial gastrectomy and partial small bowel resection with Billroth I anastomosis and partial colectomy in 2010. 3. In October 2019 she was admitted to the hospital with left obstructive pyelonephritis. She has ongoing chronic cystitis. 4. Fibromyalgia. 5. Degenerative arthritis. 6. Osteoporosis. 7. She has chronic back pain and chronic headache. 8. Anxiety/depression. Plan: Patient with chronic anemia. She has had recurrent episodes of iron deficiency. This is likely due to combination of GI blood loss and inadequate oral iron absorption. She has an extensive history of gastrointestinal disease, including GERD and history of perforated ulcer. Her prior surgeries include partial gastrectomy and partial small bowel resection with Billroth I anastomosis and partial colectomy in 2010. She has required parenteral iron replacement on multiple occasions, generally with good response. She was most recently treated with infusions of Injectafer on 01/29/2021 and 02/10/2021. She had a small bowel resection by Dr. Simpson in March 2021. She presents today for follow-up. She is having increased fatigue. Her hemoglobin has decreased from 12.5 to 11.3, her hematocrit has decreased from 38.5 to 35.3. Her iron saturation has decreased from 36.2 to15.1, her ferritin has decreased from 309 to 74, and her iron is decreased from 99 to 53. Due to her decrease in her iron studies from April until today and her increased fatigue, we will plan to administer Injectafer 750 mg x 1 dose when approved by insurance. She will return to the clinic 1 month after receiving her Injectafer with CBC and iron studies. Signed By: Kathy Onofre N.Ann. <<Signature on File>>
== END 2021-07-23 13:27 | disposition home or self-care (01) ==
LOC: ONCMED 13:30
PROVIDERS: PCP Family Medicine; Visit Provider Nurse Practitioner Family
DX: D50.9 Iron deficiency anemia, unspecified (principal); K21.9 Gastro-esophageal reflux disease without esophagitis; N30.20 Other chronic cystitis without hematuria; M79.7 Fibromyalgia; M19.90 Unspecified osteoarthritis, unspecified site; F41.9 Anxiety disorder, unspecified; F32.A Depression, unspecified; M54.50 Low back pain, unspecified; R51.9 Headache, unspecified; G89.29 Other chronic pain; Z90.49 Acquired absence of other specified parts of digestive tract; Z87.891 Personal history of nicotine dependence
CPT/HCPCS: 36591; 82728; 83540; 83550; 85025; 99214

== ENCOUNTER 2021-08-05 13:31 | Outpatient (CLI) | payer MEDICAID, SELFPAY ==
[2021-08-05] MEDS: ondansetron 2 mg/ML SDV 2 mL 4 MG IVP (14:08)
[2021-08-05] MEDS: ferric carboxy (IVPB) 750 MG in sodium chloride 0.9% (100 ml) 100 ML 460 MG IV (14:10)
== END 2021-08-05 13:32 | disposition home or self-care (01) ==
PROVIDERS: PCP Family Medicine; Visit Provider Nurse Practitioner Family
DX: D50.9 Iron deficiency anemia, unspecified (principal)
CPT/HCPCS: 96365; 96375; J1439; J2405

== ENCOUNTER 2021-10-27 10:00 | Oncology outpatient (recurring) (ONCR) | payer MEDICAID, SELFPAY ==
[2021-10-27 10:37] LABS: Basophils % 0.5 %; Eosinophils # 0.2 10^3/uL (0.0-0.8); Eosinophils % 4.1 %; Hematocrit 38.2 % (37.0-47.0); Hemoglobin 12.4 g/dL (11.5-15.3); Lymphocytes # 0.9 10^3/uL (0.8-4.8); Lymphocytes % 14.4 %; Mean Corpuscular HGB Conc 32.5 g/dL (30.0-36.0); Mean Corpuscular Volume 92.3 fl (81-99); Mean Platelet Volume 9.6 fL (7.4-10.4); Monocytes # 0.6 10^3/uL (0.2-0.9); Monocytes % 9.5 %; Neutrophils # 4.21 10^3/uL (1.8-7.7); Nucleated Red Blood Cells % 0 %; Platelet Count 258 10^3/cmm (130-400); Red Blood Count 4.14 10^6/uL (4.1-5.3); Red Cell Distribution Width 13.3 % (12.1-15.1); White Blood Count 5.9 10^3/uL (4.0-10.0)
[2021-10-27 10:51] LABS: Alanine Aminotransferase 13 U/L (0-33); Albumin Level 4.7 g/dL (3.5-5.2); Alkaline Phosphatase 118 IU/L (35-105); Anion Gap 15.3 (5-19); Aspartate Amino Transferase 17 U/L (0-32); Blood Urea Nitrogen 13 mg/dL (8-23); Calcium 9.5 mg/dL (8.5-10.5); Carbon Dioxide 25 mmol/L (22-29); Chloride 102 mmol/L (98-107); Ferritin 299 ng/mL (15-150); Glomerular Filtration Rate 125.9 mL/min (90-130); Glucose 123 mg/dL (65-115); Iron 101 ug/dL (37-145); Osmolality Calculated 289 mOsm/kg (285-295); Percent Saturation 35.1 % (20-50); Potassium 3.3 mmol/L (3.5-5.1); Sodium 139 mmol/L (136-145); Total Bilirubin 0.5 mg/dL (0.15-1.2); Total Iron Binding Capacity 287 mcg/dl; Total Protein 6.7 g/dL (6.6-8.7); Unsaturated Iron Binding 186 ug/dL (112-347)
== END 2021-10-29 23:59 | disposition home or self-care (01) ==
PROVIDERS: Nurse Practitioner Family; PCP Family Medicine; Referring Provider Family Medicine; Visit Provider Internal Medicine Medical Oncology
DX: D50.8 Other iron deficiency anemias (principal)
CPT/HCPCS: 36591; 80053; 82728; 83540; 83550; 85025

== ENCOUNTER 2021-10-29 11:38 | Outpatient (CLI) | payer MEDICAID, SELFPAY ==
--- NOTE | 2021-10-29 11:51 | MM_ITS ---
WS: [id number] BILATERAL SCREENING DIGITAL BREAST TOMOSYNTHESIS MAMMOGRAM WITH CAD HISTORY: SCREENING COMPARISON: 01/17/2018 and 12/05/2014 and 11/25/2014 Bilateral CC and MLO views with tomosynthesis and synthetic mammography submitted. Computer aided det ection analyzed. Breast composition: There are scattered areas of fibroglandular density. No suspicious masses, microc alcifications or architectural distortion. Benign calcifications in stable asymmetries in each breast . MM/[place] [id number] IMPRESSION: BI-RADS: 2-Benign FOLLOW UP: 1 Year Follow-up
== END 2021-10-29 11:39 | disposition home or self-care (01) ==
LOC: RAD 11:38
PROVIDERS: PCP Family Medicine; Visit Provider Family Medicine
DX: Z12.31 Encounter for screening mammogram for malignant neoplasm of breast (principal)
CPT/HCPCS: 77063; 77067

== ENCOUNTER 2021-12-25 18:48 | Emergency (ER) | payer MEDICAID, SELFPAY ==
--- NOTE | 2021-12-25 18:51 | XRR_ITS ---
PROCEDURE INFORMATION: Exam: XR Chest Exam date and time: 12/25/2021 7:08 PM Age: 61 years old Clinical indication: Angina; Additional info: Chest pain TECHNIQUE: Imaging protocol: Radiologic exam of the chest. Views: 1 view. COMPARISON: CR XR chest 1V portable [id number] 03/25/2021 3:57 PM FINDINGS: Tubes, catheters and devices: There is a right chest port with the line tip appropriately positioned in the lower SVC near the cavoatrial junction. Lungs: Lungs are clear. Pleural spaces: There is no pleural effusion or pneumothorax. Heart/Mediastinum: Cardiomediastinal contours are unremarkable. Bones/joints: Bones are unremarkable. XR/XR chest 1V portable [id number] IMPRESSION: No acute findings.
[2021-12-25 18:53] VITALS: BP 159/93; PULSE 87; RESP 18; TEMP 37; O2SAT 98; BMI 23.2
--- NOTE | 2021-12-25 18:56 | ECG_ITS ---
[facility] Test Date: 2021-12-25 Pat Name: Preeti Odom Department: Room: Gender: Female Tapper Helper: : 1960 Requested By: Jhon Reyes Order Number: [id number] Ehsan MD: Rony Harmon M.D. Measurements Intervals [place] Rate: 91 P: 64 MN: 183 QRS: 52 QRSD: 83 T: 64 QT: 336 QTc: 415 Interpretive Statements SINUS RHYTHM NONSPECIFIC T-WAVE ABNORMALITY INTERPRETATION BASED ON A DEFAULT AGE OF 40 YEARS Compared to ECG 10/16/2019 12:47:11 T-wave abnormality now present Myocardial infarct finding no longer present Electronically Signed On 12-26-2021 9:21:10 CDT by Rony Harmon M.D. [id number]
--- NOTE | 2021-12-25 19:38 | ED_ITS ---
HPI - Chest Pain General: Chief Complaint: Chest Pain Stated Complaint: chest pain Time Seen by Provider: 12/25/21 19:04 Source: patient History of Present Illness: 61-year-old female with no prior history of coronary disease. She states that she woke at 440 this morning with epigastric and chest discomfort. She became diaphoretic, was mildly short of breath, was nauseated, and vomited once. She took a nitroglycerin with relief. She had some tightness again this evening, and decided she should be seen. She had one episode a week or so ago, and saw her physician. An EKG showed that I had had a heart attack in the past . She was placed on nitroglycerin as needed and a beta-ayaka by her PCP at that point. MD complaint: chest pain Pertinent past history: other Onset (ago): hour(s) Timing of current episode: episodic Prior episodes: Yes Onset: during rest Pain location: substernal and epigastric Pain radiation: none Quality: tightness and aching Relieving factors: nitroglycerin Exacerbating factors: nothing Associated symptoms: Reports abdominal pain, dyspnea, nausea and vomiting; Deny fever(s) Review of Systems Const: Denies: fever(s) ENMT: Denies: throat pain Card: Reports: chest pain; Denies: irregular heart rhythm Resp: Reports: dyspnea; Denies: productive cough or non-productive cough GI: Reports: abdominal pain, nausea and vomiting Musc: Denies: neck pain PFS ED PFSH: Medical History Chronic back pain Constipation Cystitis cystica Depression Diverticulosis Fibromyalgia Iron deficiency anemia Major depressive disorder, recurrent, mild Osteoporosis Peptic ulcer disease Psychiatric care Status post extracorporeal shock wave therapy URETERAL STENT PLACEMENT Undifferentiated somatoform disorder Surgical History H/O bilateral breast reduction surgery H/O colonoscopy (10/14/20) Diverticulosis H/O rhinoplasty Nasal fracture H/O right knee surgery H/O: hysterectomy For fibroid and endometriosis / BSO History of appendectomy History of bone marrow biopsy History of partial gastrectomy Secondary to peptic ulcer disease, perforated ulcer / partial transverse colectomy with reanastomosis ([place], [place]) History of tonsillectomy Hx of cholecystectomy Port-A-Cath in place Placed for transfusions for chronic anemia S/P LASIK surgery of both eyes Family History Father , IN HIS 50'S No problems noted. Mother , AT AGE 78 Cancer OVARIAN Other Hypertension Psychiatric illness Social History Smoking and tobacco status: former smoker Alcohol intake: never Adopted: No Caregiver/support person: No Housing: House Marital status: Current occupational status: disabled History of recent travel: No Physical Exam Const: GENERAL APPEARANCE: cooperative and anxious HENMT: COMMON NORMALS: normocephalic, atraumatic and Normal external nose present HEAD & SCALP: normocephalic and atraumatic NOSE: Normal external nose present Eye: COMMON NORMALS: Equal, round and reactive pupils present and EOMs intact bilaterally PUPIL: Yes Equal, round and reactive pupils present Chest: CHEST: Yes Symmetrical chest wall rise Resp: COMMON NORMALS: normal respiratory effort, No use of accessory muscles and clear to auscultation bilaterally AUSCULTATION: clear to auscultation bilaterally Cardio: COMMON NORMALS: regular rate and regular rhythm RATE: regular rate RHYTHM: regular rhythm GI: COMMON NORMALS: Normal to inspection, nondistended, normoactive bowel sounds present and Soft to palpation PALPATION: Yes Soft to palpation and Yes Tenderness to palpation present (GI) (Epigastric) Extremity: GENERAL: Yes edema Neuro: ALBERT COMA SCALE: document GCS findings Campbell coma scale eye opening: Spontaneous Campbell coma scale verbal response: Orientated Campbell coma scale motor response: Obey commands Campbell coma scale total score: 15 Course Vital Signs: Vital signs: Vital Signs Temperature 98.6 F 12/25/21 18:53 Pulse Rate 71 12/25/21 22:44 Respiratory Rate 18 12/25/21 22:44 Blood Pressure 142/86 12/25/21 22:44 Pulse Oximetry 97 12/25/21 22:44 Oxygen Delivery Me thod 12/25/21 22:44 MDM - Chest Pain Medical Decision Making 61-year-old female with epigastric and chest discomfort radiating to her back and between her shoulder blades. She does not have a gallbladder. Her EKG shows a normal sinus rhythm with a Q wave in lead III. Rate is 71. [place] is normal. Intervals are normal. There is no ST change. Delta troponin is normal. CBC is normal. BMP is essentially normal. Chest x-ray is normal. She is improved after GI cocktail and nitroglycerin here. She will be allowed home. CT of the abdomen pelvis is completed and shows no acute findings. She is not on tachycardic, and nonhypoxic Lab Data : 12/25/21 19:30 12/25/21 19:30 Radiology Impressions Chest X-Ray 12/25/21 18:51 IMPRESSION: No acute findings. Abdomen/Pelvis CT 12/25/21 21:01 IMPRESSION: 1. No acute findings. 2. Incidental findings above. COMMENTS: Consistent with the [employer]'s Incidental Findings Committee white paper (J Am Naomy Radiol 2018): Any incidental renal lesion less than 1 cm or classified as too small to characterize, or any incidental cystic renal lesion characterized as simple-appearing, is likely benign. No follow-up imaging is recommended for these lesions per consensus recommendations based on imaging criteria. Laboratory Results WBC 7.8 10^3/uL (4.0-10.0) 12/25/21 19:30 RBC 4.25 10^6/uL (4.1-5.3) 12/25/21 19:30 Hgb 13.0 g/dL (11.5-15.3) 12/25/21 19:30 Hct 40.6 % (37.0-47.0) 12/25/21 19:30 MCV 95.5 fl (81-99) 12/25/21 19:30 MCH 30.6 pg (28.0-34.0) 12/25/21 19:30 MCHC 32.0 g/dL (30.0-36.0) 12/25/21 19:30 RDW 12.7 % (12.1-15.1) 12/25/21 19:30 Plt Count 269 10^3/cmm (130-400) 12/25/21 19:30 MPV 9.4 fL (7.4-10.4) 12/25/21 19:30 Neut % (Auto) 72.3 % 12/25/21 19:30 Lymph % (Auto) 14.5 % 12/25/21 19:30 [place] % (Auto) 10.7 % 12/25/21 19:30 Eos % (Auto) 1.7 % 12/25/21 19:30 Baso % (Auto) 0.3 % 12/25/21 19:30 Neut # (Auto) 5.62 10^3/uL (1.8-7.7) 12/25/21 19:30 Lymph # (Auto) 1.1 10^3/uL (0.8-4.8) 12/25/21 19:30 [place] # (Auto) 0.8 10^3/uL (0.2-0.9) 12/25/21 19:30 Eos # (Auto) 0.1 10^3/uL (0.0-0.8) 12/25/21 19: Baso # (Auto) 0.0 10^3/uL (0.0-0.1) 12/25/21 19:30 Nucleated RBC % (auto) 0 % 12/25/21 19: Nucleated RBCs # 0.0 /100WBC 12/25/21 19:30 Sodium 138 mmol/L (136-145) 12/25/21 19: Potassium 3.5 mmol/L (3.5-5.1) 12/25/21 19: Chloride 97 mmol/L (98-107) L 12/25/21 19: Carbon Dioxide 22 mmol/L (22-29) 12/25/21 19: Anion Gap 22.5 (5-19) H 12/25/21 19:30 BUN 15 mg/dL (8-23) 12/25/21 19:30 Creatinine 0.8 mg/dL (0.5-0.9) 12/25/21 19: GFR Calculation 73.2 mL/min (90-130) L 12/25/21 19:30 Glucose 86 mg/dL (65-115) 12/25/21 19:30 Calculated Osmolality 286 mOsm/kg (285-295) 12/25/21 19:30 Calcium 9.4 mg/dL (8.5-10.5) 12/25/21 19:30 Total Bilirubin 0.2 mg/dL (0.15-1.2) 12/25/21 19:30 AST 19 U/L (0-32) 12/25/21 19:30 ALT 15 U/L (0-33) 12/25/21 19:30 Alkaline Phosphatase 97 U/L (35-105) 12/25/21 19:30 Troponin T Baseline 8 ng/L (0-10) 12/25/21 19:30 Troponin T 120 Minute 7.92 ng/L (0-10) 12/25/21 21:14 Delta Troponin T -0.08 ABS# (0-10) L 12/25/21 21:14 Total Protein 6.8 g/dL (6.6-8.7) 12/25/21 19:30 Albumin 4.8 g/dL (3.5-5.2) 12/25/21 19:30 Globulin 2.0 g/dL (1.3-4.6) 12/25/21 19:30 Discharge Plan Discharge Patient Disposition: Home Clinical Impression: Acute epigastric pain Condition: Stable Prescriptions: No Action montelukast [Singulair] 10 mg tablet 10 mg PO DAILY@20 diphenhydramine HCl [Benadryl] 25 mg capsule 25 - 50 mg PO DAILY PRN (Reason: Allergy Symptoms) Hold Instructions: see pcp tramadol 50 mg tablet 50 mg PO BID PRN (Reason: Pain) loratadine [Claritin] 10 mg tablet 10 mg PO DAILY@08 [id number] [[id number]-Scibn-ZUU (with antiox)] 500-500-66.7 mg tablet 1 tab PO DAILY@20 bupropion HCl [Wellbutrin SR] 200 mg tablet sustained-release 12 hr 200 mg PO BID Qty: 60 5RF amitriptyline 50 mg tablet 50 mg PO .HS Qty: 30 5RF Hold Instructions: see pcp duloxetine [Cymbalta] 60 mg capsule,delayed release(DR/EC) 60 mg PO DAILY Qty: 60 5RF mupirocin 2 % ointment 1 applic topical BID Qty: 15 0RF Rx Instructions: apply to affected area once daily potassium chloride [Klor-Con 10] 10 mEq tablet extended release 10 meq PO BID@,20 Qty: 60 3RF tizanidine 4 mg Tablet 4 mg PO Q8H PRN (Reason: Muscle Spasm) celecoxib [Celebrex] 100 mg Capsule 100 mg PO BID@,20 Hold Instructions: see pcp ondansetron HCl 4 mg tablet 4 mg PO Q4H PRN (Reason: Nausea And Vomiting) pantoprazole 40 mg tablet,delayed release (DR/EC) 40 mg PO BIDWMEAL Qty: 0 0RF Discharge Orders: Discharge ED (Routine); Ordered 12/25/21 Ordered By: Kenney Olea Referrals: Thanh Meyer MD [Primary Care Provider] - 4-7 days Discharge Diet: Advance as tolerated Discharge Activity: Increase activity as tolerated Patient Instructions: Noncardiac Chest Pain (ED) Coding Level of Care Code ED Entertainment Musician for Chg Fwd Exam Comprehensive
[2021-12-25 19:39] LABS: Basophils % 0.3 %; Eosinophils # 0.1 10^3/uL (0.0-0.8); Eosinophils % 1.7 %; Hematocrit 40.6 % (37.0-47.0); Lymphocytes # 1.1 10^3/uL (0.8-4.8); Lymphocytes % 14.5 %; Mean Corpuscular Hemoglobin 30.6 pg (28.0-34.0); Mean Corpuscular Volume 95.5 fl (81-99); Mean Platelet Volume 9.4 fL (7.4-10.4); Monocytes # 0.8 10^3/uL (0.2-0.9); Monocytes % 10.7 %; Neutrophils # 5.62 10^3/uL (1.8-7.7); Neutrophils % 72.3 %; Nucleated Red Blood Cells % 0 %; Platelet Count 269 10^3/cmm (130-400); Red Blood Count 4.25 10^6/uL (4.1-5.3); Red Cell Distribution Width 12.7 % (12.1-15.1); White Blood Count 7.8 10^3/uL (4.0-10.0)
[2021-12-25 20:00] LABS: Alanine Aminotransferase 15 U/L (0-33); Albumin Level 4.8 g/dL (3.5-5.2); Alkaline Phosphatase 97 U/L (35-105); Anion Gap 22.5 (5-19); Aspartate Amino Transferase 19 U/L (0-32); Blood Urea Nitrogen 15 mg/dL (8-23); Calcium 9.4 mg/dL (8.5-10.5); Carbon Dioxide 22 mmol/L (22-29); Chloride 97 mmol/L (98-107); Glomerular Filtration Rate 73.2 mL/min (90-130); Glucose 86 mg/dL (65-115); Osmolality Calculated 286 mOsm/kg (285-295); Potassium 3.5 mmol/L (3.5-5.1); Sodium 138 mmol/L (136-145); Total Bilirubin 0.2 mg/dL (0.15-1.2); Total Protein 6.8 g/dL (6.6-8.7)
[2021-12-25 20:01] LABS: Troponin(5th) Baseline 8 ng/L (0-10)
--- NOTE | 2021-12-25 20:34 | ECG_ITS ---
[facility] Test Date: 2021-12-25 Pat Name: Preeti Odom Department: Room: Gender: Female Punch Machine Hand: : 1960 Requested By: Jhon Reyes Order Number: [id number] Ehsan MD: Rony Harmon M.D. Measurements Intervals [place] Rate: 71 P: 53 KS: 187 QRS: 30 QRSD: 95 T: 50 QT: 379 QTc: 413 Interpretive Statements SINUS RHYTHM PROBABLE INFERIOR MYOCARDIAL INFARCTION , PROBABLY OLD [35 ms Q WAVE IN II/aVF] Compared to ECG 12/25/2021 18:56:22 Myocardial infarct finding now present T-wave abnormality no longer present Electronically Signed On 12-26-2021 9:28:05 CDT by Rony Harmon M.D. [id number]
[2021-12-25] MEDS: nitroglycerin 0.4 mg sublingual Tablet SUBLINGUAL (20:55)
[2021-12-25 20:56] VITALS: BP 136/84; PULSE 85; RESP 18; O2SAT 98
[2021-12-25] MEDS: lidocaine 2% viscous 15 ML, aluminum-mag hydrox-simethicon 30 ML, sucralfate oral liq 1 GM PO (20:56)
--- NOTE | 2021-12-25 21:01 | CTR_ITS ---
PROCEDURE INFORMATION: Exam: CT Abdomen And Pelvis With Contrast Exam date and time: 12/25/2021 9:20 PM Age: 61 years old Clinical indication: Abdominal pain; Prior surgery; Surgery type: Gb. Appy. Hysterectomy. Breast reduction. Partial gastrectomy. Bowel resection. Chest port. Patient HX: C/O epigastric pain. TECHNIQUE: Imaging protocol: Computed tomography of the abdomen and pelvis with contrast. Radiation optimization: All CT scans at this facility use at least one of these dose optimization techniques: automated exposure control; mA and/or kV adjustment per patient size (includes targeted exams where dose is matched to clinical indication); or iterative reconstruction. Contrast material: OMNI 350; Contrast volume: 80 ml; Contrast route: INTRAVENOUS (IV); COMPARISON: CT abdomen pelvis w con* [id number] 04/10/2021 9:03 PM RADIATION DOSE METRICS: Total DLP (mGy-cm): 384.61 FINDINGS: Lungs: There is subsegmental atelectasis in the lung bases. Liver: The liver is normal. Gallbladder and bile ducts: The gallbladder is absent. There is moderate dilation of the common bile duct and central intrahepatic ducts. Pancreas: There is moderate atrophy of the pancreas. Spleen: The spleen is unremarkable. Adrenal glands: The adrenal glands are unremarkable. Kidneys and ureters: There is a simple cyst in the left kidney. There is no hydronephrosis or stones. Stomach and bowel: The stomach is decompressed, preventing meaningful evaluation of wall thickness. There is a suture line in the distal stomach. The small bowel is nondilated. The colon is unremarkable. Appendix: The appendix is not visible. Intraperitoneal space: There is no free air or significant intraperitoneal free fluid. Vasculature: There is mild aortic atherosclerotic disease. The portal, splenic and superior mesenteric veins are patent. Lymph nodes: There is no lymphadenopathy in the retroperitoneum, mesentery, pelvis or inguinal regions. Urinary bladder: The urinary bladder is unremarkable. Reproductive: The uterus is absent. There is no adnexal mass or large cyst. Bones/joints: Bones are unremarkable. Soft tissues: There are small periumbilical hernias. CT/CT abdomen pelvis w con* [id number] IMPRESSION: 1. No acute findings. 2. Incidental findings above. COMMENTS: Consistent with the [employer]'s Incidental Findings Committee white paper (J Am Naomy Radiol 2018): Any incidental renal lesion less than 1 cm or classified as too small to characterize, or any incidental cystic renal lesion characterized as simple-appearing, is likely benign. No follow-up imaging is recommended for these lesions per consensus recommendations based on imaging criteria.
[2021-12-25] MEDS: iohexol 350 mg/mL 100 mL Btl IV (21:31)
[2021-12-25 22:00] LABS: Troponin 5 2HR 7.92 ng/L (0-10)
[2021-12-25 22:07] LABS: Troponin 5 2HR Delta -0.08 ABS# (0-10)
[2021-12-25 22:44] VITALS: BP 142/86; PULSE 71; RESP 18; O2SAT 97
[2021-12-25] MEDS: ketorolac 30 mg/mL INJ 15 MG IVP (22:44)
== END 2021-12-25 22:52 | disposition home or self-care (01) ==
PROVIDERS: Emergency Medicine; Emergency Provider Emergency Medicine; PCP Family Medicine
DX: R10.13 Epigastric pain (principal); Z87.891 Personal history of nicotine dependence
CPT/HCPCS: 71045; 74177; 80053; 84484; 85025; 93005; 96374; 99285; J1885; Q9967

== ENCOUNTER 2022-01-25 15:19 | Oncology outpatient (recurring) (ONCR) | payer MEDICAID, SELFPAY ==
[2022-01-25 15:59] LABS: Basophils % 0.4 %; Eosinophils # 0.2 10^3/uL (0.0-0.8); Eosinophils % 1.4 %; Hematocrit 40.7 % (37.0-47.0); Hemoglobin 13.3 g/dL (11.5-15.3); Lymphocytes # 1.2 10^3/uL (0.8-4.8); Lymphocytes % 11.1 %; Mean Corpuscular HGB Conc 32.7 g/dL (30.0-36.0); Mean Corpuscular Hemoglobin 30.4 pg (28.0-34.0); Mean Corpuscular Volume 93.1 fl (81-99); Mean Platelet Volume 9.7 fL (7.4-10.4); Monocytes # 0.9 10^3/uL (0.2-0.9); Monocytes % 8.4 %; Neutrophils # 8.41 10^3/uL (1.8-7.7); Neutrophils % 78.1 %; Nucleated Red Blood Cells % 0 %; Platelet Count 262 10^3/cmm (130-400); Red Blood Count 4.37 10^6/uL (4.1-5.3); Red Cell Distribution Width 12.5 % (12.1-15.1); White Blood Count 10.8 10^3/uL (4.0-10.0)
[2022-01-25 16:32] LABS: Alanine Aminotransferase 15 U/L (0-33); Alkaline Phosphatase 102 U/L (35-105); Aspartate Amino Transferase 21 U/L (0-32); Blood Urea Nitrogen 17 mg/dL (8-23); Calcium 10.1 mg/dL (8.5-10.5); Carbon Dioxide 24 mmol/L (22-29); Chloride 95 mmol/L (98-107); Ferritin 385 ng/mL (15-150); Globulin 1.9 g/dL (1.3-4.6); Glomerular Filtration Rate 63.9 mL/min (90-130); Glucose 132 mg/dL (65-115); Iron 56 ug/dL (37-145); Osmolality Calculated 285 mOsm/kg (285-295); Percent Saturation 17.9 % (20-50); Sodium 136 mmol/L (136-145); Total Bilirubin 0.5 mg/dL (0.15-1.2); Total Iron Binding Capacity 312 mcg/dl; Total Protein 6.9 g/dL (6.6-8.7); Unsaturated Iron Binding 256 ug/dL (112-347)
[2022-01-27 14:04] LABS: Magnesium 1.6 mg/dL (1.7-2.3)
[2022-01-27 14:06] LABS: Erythrocyte Sedimentation Rate 7 mm/hr (0-15)
[2022-01-27 14:21] LABS: 25 Hydroxy Vitamin D 30 ng/mL (30-100)
== END 2022-01-29 23:59 | disposition home or self-care (01) ==
PROVIDERS: PCP Family Medicine; Visit Provider Internal Medicine Medical Oncology
DX: D50.8 Other iron deficiency anemias (principal)
CPT/HCPCS: 36591; 80053; 82306; 82728; 83540; 83550; 83735; 85025; 85651

== ENCOUNTER 2022-02-05 18:05 | Emergency (ER) | payer MEDICAID, SELFPAY ==
[2022-02-05 18:15] VITALS: BP 152/90; PULSE 63; RESP 16; TEMP 36.8; O2SAT 100; BMI 22.4
--- NOTE | 2022-02-05 19:55 | W.ED.GENADLT ---
HPI - General Adult General: Chief complaint: Abdominal Pain Stated complaint: Can't void Time Seen by Provider: 02/05/22 19:53 History of Present Illness: Patient is a 61-year-old female with a history of SBO s/p resection, chronic back pain presenting to the emergency room for concerns of decreased stooling constipation for the last 2 weeks. Patient tells me that over the course the last 2 weeks, patient reports concerns for constipation. Patient initially, patient noticed that she has not stooled for 5 days and started taking milk of magnesia and prune juice. Since then, patient has had intermittent watery stool but feels like she has abdominal fullness and incomplete voiding. Denies nausea/vomiting, fever/chill, chest pain, shortness of breath, abdominal pain, dysuria/hematuria/polyuria, diarrhea/melena/hematochezia. Onset:2 weeks ago Duration:2 weeks Location:home Severity:moderate Associated symptoms: Deny chest pain, dyspnea, nausea, rash, palpitations or vomiting Review of Systems Const: Denies: fever(s) or chills Eyes: Denies: change in vision ENMT: Denies: mouth pain Card: Denies: chest pain or palpitations Resp: Denies: dyspnea or non-productive cough GI: Reports: diarrhea (+liquid stool and imcomplete stooling) and constipation (+two weeks of constipation); Denies: abdominal pain, nausea or vomiting : Denies: dysuria Musc: Denies: extremity pain Skin/Breast: Denies: rash or new lesions Neuro: Denies: weakness in extremities Psych: Reports: other (Normal mood) Vadim/Lymph: Denies: easy bruising PFS ED PFSH: Medical History Chronic back pain Constipation Cystitis cystica Depression Diverticulosis Fibromyalgia Iron deficiency anemia Major depressive disorder, recurrent, mild Osteoporosis Peptic ulcer disease Psychiatric care Status post extracorporeal shock wave therapy URETERAL STENT PLACEMENT Undifferentiated somatoform disorder Surgical History H/O bilateral breast reduction surgery H/O colonoscopy (10/14/20) Diverticulosis H/O rhinoplasty Nasal fracture H/O right knee surgery H/O: hysterectomy For fibroid and endometriosis / BSO History of appendectomy History of bone marrow biopsy History of partial gastrectomy Secondary to peptic ulcer disease, perforated ulcer / partial transverse colectomy with reanastomosis ([place], [place]) History of tonsillectomy Hx of cholecystectomy Port-A-Cath in place Placed for transfusions for chronic anemia S/P LASIK surgery of both eyes Family History Father , IN HIS 50'S No problems noted. Mother , AT AGE 78 Cancer OVARIAN Other Hypertension Psychiatric illness Social History Smoking and tobacco status: former smoker Alcohol intake: never Adopted: No Caregiver/support person: No Housing: House Marital status: Current occupational status: disabled History of recent travel: No Physical Exam Const: COMMON NORMALS: alert HENMT: COMMON NORMALS: atraumatic HEAD & SCALP: atraumatic MOUTH: moist mucous membranes not abnormal Eye: COMMON NORMALS: EOMs intact bilaterally and conjunctivae normal CONJUNCTIVA: Yes conjunctivae normal Neck/C-Spine: COMMON NORMALS: full ROM and supple Resp: COMMON NORMALS: normal respiratory effort and clear to auscultation bilaterally AUSCULTATION: clear to auscultation bilaterally Cardio: COMMON NORMALS: regular rate RATE: regular rate GI: COMMON NORMALS: Soft to palpation and non-tender PALPATION: Yes Soft to palpation OTHER: + mild hypogastric discomfort to palpation. NO guarding rebound, guarding, rigidity. No CVA tenderness to percussion. Neg Neal/Neg McBurney's point tenderness, no suprabupic tenderness to palpation. Extremity: COMMON NORMALS: full ROM Neuro: SENSORIUM/ORIENTATION: Yes alert MOTOR EXAM: No Abnormal motor strength present and Other motor observations present (no focal motor deficits) Psych: COMMON NORMALS: speech normal SPEECH: Yes normal speech MOOD & AFFECT: Yes euthymic mood Course Vital Signs: Vital signs: Vital Signs Temperature 98.2 F 02/05/22 23:06 Pulse Rate 62 02/05/22 23:06 Respiratory Rate 18 02/05/22 23:06 Blood Pressure 161/97 02/05/22 23:06 Pulse Oximetry 99 02/05/22 23:06 Oxygen Delivery Me thod 02/05/22 18:15 [facility] - General Adult Medical Decision Making Patient is a 61-year-old female with a history of SBO s/p resection, chronic back pain presenting to the emergency room for concerns of decreased stooling constipation for the last 2 weeks. Patient is hemodynamically stable in no acute distress. On exam, patient has mild epigastric discomfort to palpation. No guarding or rebound tenderness. Lab work-up showed white count within normal limit. CT abdomen showed moderate stool burden. There is possible enhancement of the left renal collecting system. UA not consistent with any signs of UTI. However because patient continues to have back pain, will give patient a prescription for antibiotics should her pain worsens Rx miralax PRN constipation. Patient is encouraged to continue taking the other medication, cefdinir for possible early L sided kidney infection Disposition: Discharge. Patient counseled regarding diagnostic impression, treatment plan. Patient given ED strict return precautions to return for continuation, worsening, or development of new symptoms. Instructed to f/u w/ PCP regarding symptoms today. Patient verbalized understanding. Lab Data : 02/05/22 21:06 02/05/22 21:06 Radiology Impressions Abdomen/Pelvis CT 02/05/22 20:56 IMPRESSION: 1. Mild urothelial enhancement in the left renal collecting system. This could represent infection of the collecting system. Clinical correlation is recommended. 2. Moderate stool volume in the transverse colon could indicate constipation in the right clinical setting. 3. Ventral abdominal hernias. COMMENTS: Consistent with the [employer]'s Incidental Findings Committee white paper (J Am Naomy Radiol 2018): Any incidental renal lesion less than 1 cm or classified as too small to characterize, or any incidental cystic renal lesion characterized as simple-appearing, is likely benign. No follow-up imaging is recommended for these lesions per consensus recommendations based on imaging criteria. Laboratory Results WBC 6.4 10^3/uL (4.0-10.0) 02/05/22 21:06 RBC 3.67 10^6/uL (4.1-5.3) L 02/05/22 21:06 Hgb 11.6 g/dL (11.5-15.3) 02/05/22 21:06 Hct 34.6 % (37.0-47.0) L 02/05/22 21:06 MCV 94.3 fl (81-99) 02/05/22 21:06 MCH 31.6 pg (28.0-34.0) 02/05/22 21:06 MCHC 33.5 g/dL (30.0-36.0) 02/05/22 21:06 RDW 12.9 % (12.1-15.1) 02/05/22 21:06 Plt Count 285 10^3/cmm (130-400) 02/05/22 21:06 MPV 9.0 fL (7.4-10.4) 02/05/22 21:06 Neut % (Auto) 70.8 % 02/05/22 21:06 Lymph % (Auto) 15.7 % 02/05/22 21:06 [place] % (Auto) 9.6 % 02/05/22 21:06 Eos % (Auto) 2.8 % 02/05/22 21:06 Baso % (Auto) 0.5 % 02/05/22 21:06 Neut # (Auto) 4.49 10^3/uL (1.8-7.7) 02/05/22 21:06 Lymph # (Auto) 1.0 10^3/uL (0.8-4.8) 02/05/22 21:06 [place] # (Auto) 0.6 10^3/uL (0.2-0.9) 02/05/22 21:06 Eos # (Auto) 0.2 10^3/uL (0.0-0.8) 02/05/22 21:06 Baso # (Auto) 0.0 10^3/uL (0.0-0.1) 02/05/22 21:06 Nucleated RBC % (auto) 0 % 02/05/22 21:06 Nucleated RBCs # 0.0 /100WBC 02/05/22 21:06 Sodium 136 mmol/L (136-145) 02/05/22 21:06 Potassium 3.6 mmol/L (3.5-5.1) 02/05/22 21:06 Chloride 96 mmol/L (98-107) L 02/05/22 21:06 Carbon Dioxide 27 mmol/L (22-29) 02/05/22 21:06 Anion Gap 16.6 (5-19) 02/05/22 21:06 BUN 14 mg/dL (8-23) 02/05/22 21:06 Creatinine 1.1 mg/dL (0.5-0.9) H 02/05/22 21:06 GFR Calculation 50.7 mL/min (90-130) L 02/05/22 21:06 Glucose 83 mg/dL (65-115) 02/05/22 21:06 Calculated Osmolality 282 mOsm/kg (285-295) L 02/05/22 21:06 Lactate 0.4 mmol/L (0.5-2.2) L 02/05/22 21:06 Calcium 9.5 mg/dL (8.5-10.5) 02/05/22 21:06 Total Bilirubin 0.2 mg/dL (0.15-1.2) 02/05/22 21:06 AST 18 U/L (0-32) 02/05/22 21:06 ALT 14 U/L (0-33) 02/05/22 21:06 Alkaline Phosphatase 86 U/L (35-105) 02/05/22 21:06 Total Protein 6.6 g/dL (6.6-8.7) 02/05/22 21:06 Albumin 4.5 g/dL (3.5-5.2) 02/05/22 21:06 Globulin 2.1 g/dL (1.3-4.6) 02/05/22 21:06 Lipase 14 U/L (13-60) 02/05/22 21:06 Urine Color Yellow (Yellow) 02/05/22 19:07 Urine Appearance Clear (CLEAR) 02/05/22 19:07 Urine pH 8 (5-7) H 02/05/22 19:07 Ur Specific [place] 1.005 (1.005-1.030) 02/05/22 19:07 Urine Protein Neg (Negative) 02/05/22 19:07 Urine Glucose (UA) Norm (Normal) 02/05/22 19:07 Urine Ketones Negative (Negative) 02/05/22 19:07 Urine Blood Neg (Negative) 02/05/22 19:07 Urine Nitrate Negative (Negative) 02/05/22 19:07 Urine Bilirubin Neg (Negative) 02/05/22 19:07 Prot Sulfosalicylic Acd Negative (Negative) 02/05/22 19:07 Urine Urobilinogen Neg mg/dL (Negative) 02/05/22 19:07 Ur Leukocyte Esterase Negative (Negative) 02/05/22 19:07 Imaging Data Other Imaging: [facility]'s impression: [facility] [address] [place] [address] CT Scan Report Signed Patient: Preeti Odom Unit #: [id number] : 1960 Age/Sex: 61 / F ADM Date: 02/05/22 Loc: ER Room/Bed: Attending Dr: Ordering Provider/Ordering MD: Brett Reynoso MD Date of Service: 02/05/22 Procedure(s): CT abdomen pelvis w con* [id number] Accession Number(s): [id number] Report Number: [id number] PROCEDURE INFORMATION: Exam: CT Abdomen And Pelvis With Contrast Exam date and time: 02/05/2022 9:19 PM Age: 61 years old Clinical indication: Abdominal tenderness; Prior surgery; Surgery type: Breast reduction, cholecystectomy, rhinoplasty, hysterectomy; Additional info: Lower abd pain TECHNIQUE: Imaging protocol: Computed tomography of the abdomen and pelvis with contrast. Radiation optimization: All CT scans at this facility use at least one of these dose optimization techniques: automated exposure control; mA and/or kV adjustment per patient size (includes targeted exams where dose is matched to clinical indication); or iterative reconstruction. Contrast material: OMNI 350; Contrast volume: 100 ml; Contrast route: INTRAVENOUS (IV);? COMPARISON: CT abdomen pelvis w con* [id number] 12/25/2021 9:20 PM RADIATION DOSE METRICS: Total DLP (mGy-cm): 365.04 FINDINGS: Liver: Normal. No mass. Gallbladder and bile ducts: Cholecystectomy. Mild prominence of the extrahepatic bile ducts is consistent with reservoir effect. Pancreas: Atrophic pancreas. Spleen: Normal. No splenomegaly. Adrenal glands: Normal. No mass. Kidneys and ureters: Small left renal cyst, Hounsfield units less than 20. Hypodensity in the right kidney is too small to characterize but is most likely a cyst. No follow-up imaging is recommended. No calculus or hydronephrosis.? Mild urothelial enhancement of the left renal collecting system. Stomach and bowel: Postsurgical changes of the stomach. Partial small bowel resection. The stomach, colon, and small bowel otherwise are unremarkable. Moderate stool in the transverse colon.? Appendix: The appendix is not visualized. No secondary signs of appendicitis. Intraperitoneal space: Unremarkable. No free air. No significant fluid collection. Vasculature: Unremarkable. No abdominal aortic aneurysm. Lymph nodes: Unremarkable. No enlarged lymph nodes. Urinary bladder: Unremarkable as visualized. Reproductive: The uterus and ovaries are absent. Bones/joints: Unremarkable. No acute fracture. Soft tissues: Supraumbilical hernia containing a partial portion of the transverse colon without obstruction. Periumbilical hernia containing mesenteric fat and a short loop of nonobstructed small bowel. CT/CT abdomen pelvis w con* [id number] IMPRESSION: 1. Mild urothelial enhancement in the left renal collecting system.? This could represent infection of the collecting system. Clinical correlation is recommended. 2. Moderate stool volume in the transverse colon could indicate constipation in the right clinical setting. 3. Ventral abdominal hernias. ? COMMENTS: Consistent with the [employer]'s Incidental Findings Committee white paper (J Am Naomy Radiol 2018): Any incidental renal lesion less than 1 cm or classified as too small to characterize, or any incidental cystic renal lesion characterized as simple-appearing, is likely benign. No follow-up imaging is recommended for these lesions per consensus recommendations based on imaging criteria. ? Dictated By: Shay Jeffers Signed By: Shay Jeffers Signed Date/Time: 02/05/222203 DD/ 18 Discharge Plan Discharge Patient Disposition: Home Clinical Impression: Constipation, Back pain Condition: Stable Prescriptions: New Miralax 17 gram/dose powder 8.5 g PO DAILY PRN (Reason: constipation) 28 Days Qty: 238 0RF cefdinir 300 mg capsule 300 mg PO BID 10 Days Qty: 20 0RF Florastor 250 mg capsule 250 mg PO BID 7 Days Qty: 14 0RF No Action montelukast [Singulair] 10 mg tablet 10 mg PO DAILY@20 diphenhydramine HCl [Benadryl] 25 mg capsule 25 - 50 mg PO DAILY PRN (Reason: Allergy Symptoms) Hold Instructions: see pcp tramadol 50 mg tablet 50 mg PO BID PRN (Reason: Pain) loratadine [Claritin] 10 mg tablet 10 mg PO DAILY@08 [id number] [Xhmvak-Hundq-NES (with antiox)] 500-500-66.7 mg tablet 1 tab PO DAILY@20 bupropion HCl [Wellbutrin SR] 200 mg tablet sustained-release 12 hr 200 mg PO BID Qty: 60 5RF amitriptyline 50 mg tablet 50 mg PO .HS Qty: 30 5RF Hold Instructions: see pcp duloxetine [Cymbalta] 60 mg capsule,delayed release(DR/EC) 60 mg PO DAILY Qty: 60 5RF mupirocin 2 % ointment 1 applic topical BID Qty: 15 0RF Rx Instructions: apply to affected area once daily potassium chloride [Klor-Con 10] 10 mEq tablet extended release 20 meq PO BID@08,20 Qty: 60 3RF tizanidine 4 mg Tablet 4 mg PO Q8H PRN (Reason: Muscle Spasm) celecoxib [Celebrex] 100 mg Capsule 100 mg PO BID@,20 Hold Instructions: see pcp ondansetron HCl 4 mg tablet 4 mg PO Q4H PRN (Reason: Nausea And Vomiting) pantoprazole 40 mg tablet,delayed release (DR/EC) 40 mg PO BIDWMEAL Qty: 0 0RF Discharge Orders: Discharge ED (Routine); Ordered 02/05/22 Ordered By: Brett Reynoso Referrals: Thanh Meyer MD [Primary Care Provider] - Discharge Diet: Advance as tolerated Discharge Activity: Increase activity as tolerated Patient Instructions: Constipation (ED) Activity Restrictions/Additional Instructions: Come back if you have any new or concerning issues. Please take your MiraLAX as instructed. Please come back to emergency have any worsening pain, fever/chills, or any worsening complaints. 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
[2022-02-05 20:30] LABS: Add Urine Microscopic? NO; Charge for UA Resulting for Rev
[2022-02-05 20:41] LABS: Bilirubin Urine Neg (Negative); Blood Urine Neg (Negative); Glucose Urine UA Norm (Normal); Ketones Urine Negative (Negative); Leukocyte Esterase Urine Negative (Negative); Nitrate Urine Negative (Negative); Protein Urine Neg (Negative); Specific Gravity, Urine 1.005 (1.005-1.030); Sulfosalicylic Acid Urine Negative (Negative); Urine Appearance Clear (CLEAR); Urine Color Yellow (Yellow); Urobilinogen Urine Neg (Negative); pH Urine 8 (5-7)
--- NOTE | 2022-02-05 20:56 | CTR_ITS ---
PROCEDURE INFORMATION: Exam: CT Abdomen And Pelvis With Contrast Exam date and time: 02/05/2022 9:19 PM Age: 61 years old Clinical indication: Abdominal tenderness; Prior surgery; Surgery type: Breast reduction, cholecystectomy, rhinoplasty, hysterectomy; Additional info: Lower abd pain TECHNIQUE: Imaging protocol: Computed tomography of the abdomen and pelvis with contrast. Radiation optimization: All CT scans at this facility use at least one of these dose optimization techniques: automated exposure control; mA and/or kV adjustment per patient size (includes targeted exams where dose is matched to clinical indication); or iterative reconstruction. Contrast material: OMNI 350; Contrast volume: 100 ml; Contrast route: INTRAVENOUS (IV); COMPARISON: CT abdomen pelvis w con* [id number] 12/25/2021 9:20 PM RADIATION DOSE METRICS: Total DLP (mGy-cm): 365.04 FINDINGS: Liver: Normal. No mass. Gallbladder and bile ducts: Cholecystectomy. Mild prominence of the extrahepatic bile ducts is consistent with reservoir effect. Pancreas: Atrophic pancreas. Spleen: Normal. No splenomegaly. Adrenal glands: Normal. No mass. Kidneys and ureters: Small left renal cyst, Hounsfield units less than 20. Hypodensity in the right kidney is too small to characterize but is most likely a cyst. No follow-up imaging is recommended. No calculus or hydronephrosis. Mild urothelial enhancement of the left renal collecting system. Stomach and bowel: Postsurgical changes of the stomach. Partial small bowel resection. The stomach, colon, and small bowel otherwise are unremarkable. Moderate stool in the transverse colon. Appendix: The appendix is not visualized. No secondary signs of appendicitis. Intraperitoneal space: Unremarkable. No free air. No significant fluid collection. Vasculature: Unremarkable. No abdominal aortic aneurysm. Lymph nodes: Unremarkable. No enlarged lymph nodes. Urinary bladder: Unremarkable as visualized. Reproductive: The uterus and ovaries are absent. Bones/joints: Unremarkable. No acute fracture. Soft tissues: Supraumbilical hernia containing a partial portion of the transverse colon without obstruction. Periumbilical hernia containing mesenteric fat and a short loop of nonobstructed small bowel. CT/CT abdomen pelvis w con* [id number] IMPRESSION: 1. Mild urothelial enhancement in the left renal collecting system. This could represent infection of the collecting system. Clinical correlation is recommended. 2. Moderate stool volume in the transverse colon could indicate constipation in the right clinical setting. 3. Ventral abdominal hernias. COMMENTS: Consistent with the [employer]'s Incidental Findings Committee white paper (J Am Naomy Radiol 2018): Any incidental renal lesion less than 1 cm or classified as too small to characterize, or any incidental cystic renal lesion characterized as simple-appearing, is likely benign. No follow-up imaging is recommended for these lesions per consensus recommendations based on imaging criteria.
[2022-02-05 21:13] LABS: Basophils % 0.5 %; Eosinophils # 0.2 10^3/uL (0.0-0.8); Eosinophils % 2.8 %; Hematocrit 34.6 % (37.0-47.0); Hemoglobin 11.6 g/dL (11.5-15.3); Lymphocytes % 15.7 %; Mean Corpuscular HGB Conc 33.5 g/dL (30.0-36.0); Mean Corpuscular Hemoglobin 31.6 pg (28.0-34.0); Mean Corpuscular Volume 94.3 fl (81-99); Monocytes # 0.6 10^3/uL (0.2-0.9); Monocytes % 9.6 %; Neutrophils # 4.49 10^3/uL (1.8-7.7); Neutrophils % 70.8 %; Nucleated Red Blood Cells % 0 %; Platelet Count 285 10^3/cmm (130-400); Red Blood Count 3.67 10^6/uL (4.1-5.3); Red Cell Distribution Width 12.9 % (12.1-15.1); White Blood Count 6.4 10^3/uL (4.0-10.0)
[2022-02-05] MEDS: iohexol 350 mg/mL 100 mL Btl IV (21:22)
[2022-02-05 21:29] VITALS: BP 155/69
[2022-02-05 21:29] LABS: Lactate (Lactic Acid level) 0.4 mmol/L (0.5-2.2)
[2022-02-05 21:34] LABS: Alanine Aminotransferase 14 U/L (0-33); Albumin Level 4.5 g/dL (3.5-5.2); Alkaline Phosphatase 86 U/L (35-105); Anion Gap 16.6 (5-19); Aspartate Amino Transferase 18 U/L (0-32); Blood Urea Nitrogen 14 mg/dL (8-23); Calcium 9.5 mg/dL (8.5-10.5); Carbon Dioxide 27 mmol/L (22-29); Chloride 96 mmol/L (98-107); Globulin 2.1 g/dL (1.3-4.6); Glomerular Filtration Rate 50.7 mL/min (90-130); Glucose 83 mg/dL (65-115); Lipase 14 U/L (13-60); Osmolality Calculated 282 mOsm/kg (285-295); Potassium 3.6 mmol/L (3.5-5.1); Sodium 136 mmol/L (136-145); Total Bilirubin 0.2 mg/dL (0.15-1.2); Total Protein 6.6 g/dL (6.6-8.7)
[2022-02-05 22:30] VITALS: BP 161/91
[2022-02-05 23:06] VITALS: BP 161/97; PULSE 62; RESP 18; TEMP 36.8; O2SAT 99
== END 2022-02-05 23:08 | disposition home or self-care (01) ==
PROVIDERS: Emergency Medicine; Emergency Provider Emergency Medicine; PCP Family Medicine
DX: K59.00 Constipation, unspecified (principal); M54.9 Dorsalgia, unspecified; Z87.891 Personal history of nicotine dependence
CPT/HCPCS: 74177; 80053; 81003; 83605; 83690; 85025; 99285; Q9967

== ENCOUNTER → 2022-02-15 13:21 | Outpatient (BNVA) | payer MEDICAID, SELFPAY | PROVIDERS: PCP Family Medicine; Visit Provider Internal Medicine Cardiovascular Disease | DX: R42 Dizziness and giddiness (principal); R55 Syncope and collapse; M79.89 Other specified soft tissue disorders; K21.9 Gastro-esophageal reflux disease without esophagitis; F10.10 Alcohol abuse, uncomplicated; R94.5 Abnormal results of liver function studies; Z87.891 Personal history of nicotine dependence; R94.31 Abnormal electrocardiogram [ECG] [EKG]; R00.2 Palpitations | CPT/HCPCS: 99204 ==

== ENCOUNTER 2022-02-26 13:30 | Outpatient (CLI) | payer MEDICAID, SELFPAY ==
[2022-02-26 14:25] LABS: Anion Gap 16.5 (5-19); Blood Urea Nitrogen 12 mg/dL (8-23); Calcium 9.4 mg/dL (8.5-10.5); Carbon Dioxide 24 mmol/L (22-29); Chloride 99 mmol/L (98-107); Glomerular Filtration Rate 73.2 mL/min (90-130); Glucose 74 mg/dL (65-115); Osmolality Calculated 280 mOsm/kg (285-295); Potassium 3.5 mmol/L (3.5-5.1); Sodium 136 mmol/L (136-145)
== END 2022-02-26 13:31 | disposition home or self-care (01) ==
LOC: LAB 13:31
PROVIDERS: Internal Medicine Cardiovascular Disease; PCP Family Medicine; Visit Provider Internal Medicine Hematology & Oncology
DX: R07.9 Chest pain, unspecified (principal)
CPT/HCPCS: 80048

== ENCOUNTER 2022-03-27 15:20 | Emergency (ER) | payer MEDICAID, SELFPAY ==
[2022-03-27 15:26] VITALS: BP 158/68; PULSE 60; RESP 22; O2SAT 95; BMI 22.4
[2022-03-27 16:00] VITALS: BP 120/86; PULSE 74; RESP 16; O2SAT 99
[2022-03-27 16:13] LABS: Basophils % 0.4 %; Eosinophils # 0.1 10^3/uL (0.0-0.8); Eosinophils % 0.9 %; Hemoglobin 11.1 g/dL (11.5-15.3); Lymphocytes # 0.7 10^3/uL (0.8-4.8); Lymphocytes % 7.1 %; Mean Corpuscular HGB Conc 33.6 g/dL (30.0-36.0); Mean Corpuscular Volume 95.1 fl (81-99); Mean Platelet Volume 9.5 fL (7.4-10.4); Monocytes # 0.8 10^3/uL (0.2-0.9); Monocytes % 7.5 %; Neutrophils # 8.48 10^3/uL (1.8-7.7); Neutrophils % 83.5 %; Nucleated Red Blood Cells % 0 %; Platelet Count 253 10^3/cmm (130-400); Red Blood Count 3.47 10^6/uL (4.1-5.3); Red Cell Distribution Width 13.1 % (12.1-15.1); White Blood Count 10.2 10^3/uL (4.0-10.0)
--- NOTE | 2022-03-27 16:14 | CTR_ITS ---
PROCEDURE INFORMATION: Exam: CT Abdomen And Pelvis Without Contrast Exam date and time: 03/27/2022 4:31 PM Age: 62 years old Clinical indication: Abdominal pain; Prior surgery TECHNIQUE: Imaging protocol: Computed tomography of the abdomen and pelvis without contrast. Radiation optimization: All CT scans at this facility use at least one of these dose optimization techniques: automated exposure control; mA and/or kV adjustment per patient size (includes targeted exams where dose is matched to clinical indication); or iterative reconstruction. COMPARISON: CT abdomen pelvis w con* [id number] 02/05/2022 9:19 PM RADIATION DOSE METRICS: Total DLP (mGy-cm): 377.74 FINDINGS: Limitations: The absence of intravenous contrast lessens the sensitivity of this study for solid organ abnormalities. Diaphragm: There is a small hiatal hernia. Liver: There is no focal abnormality within the liver. Gallbladder and bile ducts: There has been a cholecystectomy. Pancreas: Pancreas is atrophic and mostly fatty replaced. This is not changed from previous. Spleen: The spleen is normal. Adrenal glands: The adrenal glands are normal. Kidneys and ureters: 1.1 cm cyst lower pole left kidney not significantly changed. The right kidney is normal. There is no evidence of hydronephrosis. There is no evidence of renal or ureteral calcifications. Stomach and bowel: There is no evidence of colitis/diverticulitis. There is no evidence of intestinal obstruction. There is some postsurgical changes in the stomach and small bowel which are stable. Appendix: A normal appendix is identified. Intraperitoneal space: There is no evidence of free intraperitoneal fluid. Vasculature: Unremarkable. No abdominal aortic aneurysm. Lymph nodes: Unremarkable. No enlarged lymph nodes. Urinary bladder: Unremarkable as visualized. Reproductive: There has been a hysterectomy. Bones/joints: The lumbar spine demonstrates moderate degenerative changes at multiple levels. Soft tissues: There are 2 small ventral hernias, the upper 1 containing some bowel without incarceration or obstruction. CT/CT abdomen pelvis wo con [id number] IMPRESSION: 1. No acute findings. 2. Chronic findings not significantly changed from 02/05/2022.
--- NOTE | 2022-03-27 16:16 | ED_ITS ---
HPI - Nausea/Vomiting/Diarrhea General: Chief complaint: Nausea/Vomiting/Diarrhea Stated complaint: N/V/D Time Seen by Provider: 03/27/22 15:55 Source: patient Mode of arrival: ambulatory History of Present Illness: 62-year-old female presents emergency room with complaint of nausea vomiting abdominal pain and cramping began a couple of hours ago. She did try to eat soup today she had very nauseous and is thrown up several times. She is previous had bowel obstructions with resections. She had a few small bowel movements this morning. She denies any fever sweats chills denies any dysuria urgency or frequency no hematochezia or hematemesis vomiting has been bilious in the emergency room. MD elicited complaint: nausea and vomiting Onset (ago): hour(s) Description of vomiting: watery and bilious Associated nausea: Yes Associated abdominal pain: Yes Location of pain: Diffuse Severity: mild Quality: cramping Exacerbating factors: none Relieving factors: none Associated symtoms: Reports bloating, fatigue, fevers/chills, headache(s), anorexia, malaise, myalgias, nausea and weakness; Denies altered mental status, anxiety, change in vision, chest pain, cough, diaphoresis, decreased urine output, dizziness, dysuria, epistaxis, fecal incontinence, numbness, palpitations, rash, short of breath, syncope, tenesmus or tinnitus Treatment prior to arrival: other (Zofran) Review of Systems Const: Reports: fever(s), chills, fatigue and malaise; Denies: diaphoresis Eyes: Denies: change in vision ENMT: Denies: throat pain, tinnitus or epistaxis Card: Denies: chest pain, palpitations or syncope Resp: Denies: dyspnea, productive cough or non-productive cough GI: Reports: abdominal pain, nausea, vomiting, diarrhea and bloating; Denies: fecal incontinence : Denies: dysuria Skin/Breast: Denies: rash or pruritus Neuro: Reports: headache(s); Denies: dizziness Psych: Denies: anxiety PFSH ED PFSH: Medical History Chronic back pain Constipation Cystitis cystica Depression Diverticulosis Fibromyalgia Iron deficiency anemia Major depressive disorder, recurrent, mild Osteoporosis Peptic ulcer disease Psychiatric care Status post extracorporeal shock wave therapy URETERAL STENT PLACEMENT Undifferentiated somatoform disorder Surgical History H/O bilateral breast reduction surgery H/O colonoscopy (10/14/20) Diverticulosis H/O rhinoplasty Nasal fracture H/O right knee surgery H/O: hysterectomy For fibroid and endometriosis / BSO History of appendectomy History of bone marrow biopsy History of partial gastrectomy Secondary to peptic ulcer disease, perforated ulcer / partial transverse colectomy with reanastomosis ([place], [place]) History of tonsillectomy Hx of cholecystectomy Port-A-Cath in place Placed for transfusions for chronic anemia S/P LASIK surgery of both eyes Family History Father , IN HIS 50'S No problems noted. Mother , AT AGE 78 Cancer OVARIAN Myocardial infarction Stroke Sister CAD (coronary artery disease) Other Hypertension Psychiatric illness Social History Smoking and tobacco status: former smoker Alcohol intake: never Adopted: No Caregiver/support person: No Housing: House Marital status: Current occupational status: disabled History of recent travel: No Physical Exam Const: COMMON NORMALS: no acute distress EXAM LIMITATIONS: no altered mental status GENERAL APPEARANCE: cooperative and comfortable ORIENTATION/CONSCIOUSNESS: Yes awake, Yes oriented to person, Yes oriented to place and Yes oriented to time HENMT: COMMON NORMALS: normocephalic, atraumatic, hearing grossly normal bilat erally, external ears normal, EAC's normal, TM's normal bilaterally, Normal nasal mucous membranes and turbinates present, moist oral mucous membranes and oropharynx normal HEAD & SCALP: normocephalic and atraumatic NOSE: Normal nasal mucous membranes and turbinates present EXTERNAL EAR: Yes external ears normal EXTERNAL AUDITORY CANAL: EAC's normal TYMPANIC MEMBRANE: TM's normal bilaterally Eye: COMMON NORMALS: Equal, round and reactive pupils present, EOMs intact bilaterally, conjunctivae normal and no scleral icterus CONJUNCTIVA: Yes conjunctivae normal PUPIL: Yes Equal, round and reactive pupils present Neck/C-Spine: COMMON NORMALS: full ROM, no lymphadenopathy, supple and no JVD Resp: COMMON NORMALS: normal respiratory effort, No retractions, No use of accessory muscles and clear to auscultation bilaterally AUSCULTATION: clear to auscultation bilaterally Cardio: COMMON NORMALS: no JVD, regular rate, regular rhythm and No murmurs present (Cardio) RATE: regular rate RHYTHM: regular rhythm GI: COMMON NORMALS: Soft to palpation and No hepatosplenomegaly present AUSCULTATION: Yes normoactive bowel sounds PALPATION: Yes Soft to palpation, No Tenderness to palpation present (GI), No Guarding due to palpation present (GI) and Yes No hepatosplenomegaly present Extremity: COMMON NORMALS: normal to inspection, capillary refill normal, no clubbing, cyanosis or edema, no calf tenderness and no pedal edema Neuro: SENSORIUM/ORIENTATION: Yes oriented to person, Yes oriented to place a nd Yes oriented to time Skin: COMMON NORMALS: no rashes or lesions noted GENERAL SKIN EXAM: no rashes or lesions noted Course Vital Signs: Vital signs: Vital Signs Pulse Rate 71 03/27/22 18:36 Respiratory Rate 17 03/27/22 18:36 Blood Pressure 107/63 03/27/22 18:36 Pulse Oximetry 95 03/27/22 18:36 Oxygen Delivery Me thod 03/27/22 16:00 MDM - Nausea/Vomiting/Diarrhea Medical Decision Making Improved with fluids. We will discharge patient home with antiemetics. She may have COVID or influenza COVID swab is pending. Discharge home clear liquid diet advance as tolerated reviewed labs and imaging with the patient. Medical Records I reviewed the patient's medical records. Lab Data I reviewed the patient's lab results. 03/27/22 15:47 03/27/22 15:47 Radiology Impressions Abdomen/Pelvis CT 03/27/22 16:14 IMPRESSION: 1. No acute findings. 2. Chronic findings not significantly changed from 02/05/2022. Laboratory Results WBC 10.2 10^3/uL (4.0-10.0) H 03/27/22 15:47 RBC 3.47 10^6/uL (4.1-5.3) L 03/27/22 15:47 Hgb 11.1 g/dL (11.5-15.3) L 03/27/22 15:47 Hct 33.0 % (37.0-47.0) L 03/27/22 15:47 MCV 95.1 fl (81-99) 03/27/22 15:47 MCH 32.0 pg (28.0-34.0) 03/27/22 15:47 MCHC 33.6 g/dL (30.0-36.0) 03/27/22 15:47 RDW 13.1 % (12.1-15.1) 03/27/22 15:47 Plt Count 253 10^3/cmm (130-400) 03/27/22 15:47 MPV 9.5 fL (7.4-10.4) 03/27/22 15:47 Neut % (Auto) 83.5 % 03/27/22 15:47 Lymph % (Auto) 7.1 % 03/27/22 15:47 Starke % (Auto) 7.5 % 03/27/22 15:47 Eos % (Auto) 0.9 % 03/27/22 15:47 Baso % (Auto) 0.4 % 03/27/22 15:47 Neut # (Auto) 8.48 10^3/uL (1.8-7.7) H 03/27/22 15:47 Lymph # (Auto) 0.7 10^3/uL (0.8-4.8) L 03/27/22 15:47 Starke # (Auto) 0.8 10^3/uL (0.2-0.9) 03/27/22 15:47 Eos # (Auto) 0.1 10^3/uL (0.0-0.8) 03/27/22 15:47 Baso # (Auto) 0.0 10^3/uL (0.0-0.1) 03/27/22 15:47 Nucleated RBC % (auto) 0 % 03/27/22 15:47 Nucleated RBCs # 0.0 /100WBC 03/27/22 15:47 Sodium 138 mmol/L (136-145) 03/27/22 15:47 Potassium 3.0 mmol/L (3.5-5.1) L 03/27/22 15:47 Chloride 102 mmol/L (98-107) 03/27/22 15:47 Carbon Dioxide 18 mmol/L (22-29) L 03/27/22 15:47 Anion Gap 21.0 (5-19) H 03/27/22 15:47 BUN 16 mg/dL (8-23) 03/27/22 15:47 Creatinine 0.6 mg/dL (0.5-0.9) 03/27/22 15:47 GFR Calculation 101.6 mL/min (90-130) 03/27/22 15:47 Glucose 119 mg/dL (65-115) H 03/27/22 15:47 Calculated Osmolality 288 mOsm/kg (285-295) 03/27/22 15:47 Lactic Acid 0.8 mmol/L (0.5-2.2) 03/27/22 16:10 Calcium 8.8 mg/dL (8.5-10.5) 03/27/22 15:47 Total Bilirubin 0.3 mg/dL (0.15-1.2) 03/27/22 15:47 AST 27 U/L (0-32) 03/27/22 15:47 ALT 15 U/L (0-33) 03/27/22 15:47 Alkaline Phosphatase 90 U/L (35-105) 03/27/22 15:47 Total Protein 6.1 g/dL (6.6-8.7) L 03/27/22 15:47 Albumin 4.4 g/dL (3.5-5.2) 03/27/22 15:47 Globulin 1.7 g/dL (1.3-4.6) 03/27/22 15:47 Lipase 41 U/L (13-60) 03/27/22 15:47 Urine Color Yellow (Yellow) 03/27/22 16:58 Urine Appearance Clear (CLEAR) 03/27/22 16:58 Urine pH 5 (5-7) 03/27/22 16:58 Ur Specific [employer] 1.025 (1.005-1.030) 03/27/22 16:58 Urine Protein Neg (Negative) 03/27/22 16:58 Urine Glucose (UA) Norm (Normal) 03/27/22 16:58 Urine Ketones 2+ (Negative) H 03/27/22 16:58 Urine Blood 2+ (Negative) H 03/27/22 16:58 Urine Nitrate Negative (Negative) 03/27/22 16:58 Urine Bilirubin Neg (Negative) 03/27/22 16:58 Urine Urobilinogen Neg mg/dL (Negative) 03/27/22 16:58 Ur Leukocyte Esterase Trace (Negative) H 03/27/22 16:58 Urine RBC 5-10 /hpf (0-2) H 03/27/22 16:58 Urine WBC 5-10 /hpf (0-5) H 03/27/22 16:58 Ur Squamous Epith Cells 0-4 /hpf (0-5) H 03/27/22 16:58 Amorphous Sediment Not Reportable 03/27/22 16:58 Urine Bacteria 2+ /hpf (NONE) H 03/27/22 16:58 Coronavirus 229E (PCR) Not detected (NOT DETECT) 03/27/22 17:56 SARS-CoV-2 (PCR) Not detected (NOT DETECT) 03/27/22 17:56 Discharge Plan Discharge Patient Disposition: Home Clinical Impression: Viral URI, Nausea & vomiting Condition: Stable Prescriptions: New promethazine 25 mg tablet 25 mg PO Q6H PRN (Reason: nausea and vomiting) Qty: 20 0RF No Action montelukast [Singulair] 10 mg tablet 10 mg PO DAILY@20 diphenhydramine HCl [Benadryl] 25 mg capsule 25 - 50 mg PO DAILY PRN (Reason: Allergy Symptoms) Hold Instructions: see pcp tramadol 50 mg tablet 50 mg PO BID PRN (Reason: Pain) loratadine [Claritin] 10 mg tablet 10 mg PO DAILY@08 [id number] [Ljvmkn-Ururj-LVU (with antiox)] 500-500-66.7 mg tablet 1 tab PO DAILY@20 bupropion HCl [Wellbutrin SR] 200 mg tablet sustained-release 12 hr 200 mg PO BID Qty: 60 5RF amitriptyline 50 mg tablet 50 mg PO .HS Qty: 30 5RF Hold Instructions: see pcp duloxetine [Cymbalta] 60 mg capsule,delayed release(DR/EC) 60 mg PO DAILY Qty: 60 5RF Excedrin Migraine 250-250-65 mg tablet 1 tab PO Q6H PRN mupirocin 2 % ointment 1 applic topical BID PRN Rx Instructions: apply to affected area once daily pantoprazole 40 mg tablet,delayed release (DR/EC) 40 mg PO DAILY ibuprofen 200 mg tablet 200 mg PO Q6H PRN Adult 50 Plus Probiotic 4 billion cell capsule 4,000 mmu cells PO DAILY Rx Instructions: administer with a meal furosemide 20 mg tablet 20 mg PO DAILY potassium chloride [Klor-Con 10] 10 mEq tablet extended release 20 meq PO BID@08,20 Qty: 60 3RF tizanidine 4 mg Tablet 4 mg PO Q8H PRN (Reason: Muscle Spasm) celecoxib [Celebrex] 100 mg Capsule 100 mg PO BID@08,20 Hold Instructions: see pcp ondansetron HCl 4 mg tablet 4 mg PO Q4H PRN (Reason: Nausea And Vomiting) Discharge Orders: Discharge ED (Routine); Ordered 03/27/22 Ordered By: Sergio Amado Referrals: Thanh Meyer MD [Primary Care Provider] - Patient Instructions: Opioid Safety, Pain Management Activity Restrictions/Additional Instructions: You are seen in the emergency room for nausea and vomiting. You were given IV fluids laboratory tests were unremarkable. CT of abdomen showed no sign of an obstruction. He did show evidence of a mild bladder infection for which he was given antibiotic. Clear liquid diet for the next 24 to 48 hours then advance as tolerated start the oral antibiotic this evening 1 pill twice a day for a week. Coding Level of Care Code ED Transit Planning Manager for Latia Harper
[2022-03-27] MEDS: sodium chloride 0.9% 1,000 ML 999 ML IV ×2 (16:24→17:20)
[2022-03-27 16:42] LABS: Alanine Aminotransferase 15 U/L (0-33); Albumin Level 4.4 g/dL (3.5-5.2); Alkaline Phosphatase 90 U/L (35-105); Aspartate Amino Transferase 27 U/L (0-32); Blood Urea Nitrogen 16 mg/dL (8-23); Calcium 8.8 mg/dL (8.5-10.5); Carbon Dioxide 18 mmol/L (22-29); Chloride 102 mmol/L (98-107); Globulin 1.7 g/dL (1.3-4.6); Glomerular Filtration Rate 101.6 mL/min (90-130); Glucose 119 mg/dL (65-115); Lipase 41 U/L (13-60); Osmolality Calculated 288 mOsm/kg (285-295); Sodium 138 mmol/L (136-145); Total Bilirubin 0.3 mg/dL (0.15-1.2); Total Protein 6.1 g/dL (6.6-8.7)
[2022-03-27 16:42] LABS: Lactic Sepsis W/Reflex 0.8 mmol/L (0.5-2.2)
[2022-03-27 17:00] VITALS: PULSE 66; RESP 16; O2SAT 98
[2022-03-27 17:29] LABS: Bilirubin Urine Neg (Negative); Blood Urine 2+ (Negative); Glucose Urine UA Norm (Normal); Ketones Urine 2+ (Negative); Nitrate Urine Negative (Negative); Protein Urine Neg (Negative); Specific Gravity, Urine 1.025 (1.005-1.030); Urine Appearance Clear (CLEAR); Urine Color Yellow (Yellow); pH Urine 5 (5-7)
[2022-03-27 17:30] LABS: Add Urine Microscopic? YES; Leukocyte Esterase Urine Trace (Negative); Urobilinogen Urine Neg (Negative)
[2022-03-27] MEDS: promethazine 25 mg/mL SDV 1 mL IM (17:31)
[2022-03-27 17:39] LABS: Squamous Epithelial Cell Urine 0-4 /hpf (0-5)
[2022-03-27 17:40] LABS: Add Urine Culture? Yes; Bacteria Urine 2+ /hpf
[2022-03-27 18:00] VITALS: BP 118/77; PULSE 64; RESP 16; O2SAT 96
[2022-03-27 18:36] VITALS: BP 107/63; PULSE 71; RESP 17; O2SAT 95
[2022-03-27 19:55] LABS: Adenovirus Not Detected (NOT DETECT); Chlamydia Pneumoniae Not Detected (NOT DETECT); Coronavirus 229E,HKU1,NL63,OC4 Not Detected (NOT DETECT); Human Metapneumovirus Not Detected (NOT DETECT); Human Rhinovirus/Enterovirus Not Detected (NOT DETECT); Influenza A Not Detected (NOT DETECT); Influenza A H1 Not Detected (NOT DETECT); Influenza A H1-2009 Not Detected (NOT DETECT); Influenza A H3 Not Detected (NOT DETECT); Influenza B Not Detected (NOT DETECT); Mycoplasma Pneumoniae Not Detected (NOT DETECT); Parainfluenza Virus Type 1 Not Detected (NOT DETECT); Parainfluenza Virus Type 2 Not Detected (NOT DETECT); Parainfluenza Virus Type 3 Not Detected (NOT DETECT); Parainfluenza Virus Type 4 Not Detected (NOT DETECT); Respiratory Syncytial Virus A Not Detected (NOT DETECT); Respiratory Syncytial Virus B Not Detected (NOT DETECT); SARS-COV-2 Not Detected (NOT DETECT)
== END 2022-03-27 18:30 | disposition home or self-care (01) ==
PROVIDERS: Emergency Provider Family Medicine; PCP Family Medicine
DX: J06.9 Acute upper respiratory infection, unspecified (principal); R11.2 Nausea with vomiting, unspecified
CPT/HCPCS: 74176; 80053; 81001; 83605; 83690; 85025; 87077; 87086; 87186; 87635; 96360; 96372; 99285; J2550; J7030

== ENCOUNTER 2022-04-02 07:32 | Outpatient (CLI) | payer MEDICAID, SELFPAY ==
--- NOTE | 2022-04-02 07:45 | USCV_ITS ---
Preeti Odom Age: 62 Gender: F : 1960 Exam Date: 04/02/2022 07:56 Ordering Phys: Audrey Martinez MD ([email or web address]) Technologist: Exam Location: [facility] – [place] Indication: murmur near syncope BP: 80 / 56 HR: 45 Rhythm: Sinus Technical Quality: Adequate MEASUREMENTS (Male / Female) Normal Values 2D ECHO LV Diastolic Diameter PLAX 3.0 cm 4.2 - 5.9 / 3.9 - 5.3 cm LV Systolic Diameter PLAX 2.1 cm IVS Diastolic Thickness 1.7 cm 0.6 - 1.0 / 0.6 - 0.9 cm IVS Systolic Thickness 1.8 cm LVPW Diastolic Thickness 1.3 cm 0.6 - 1.0 / 0.6 - 0.9 cm LVPW Systolic Thickness 1.3 cm LVOT Diameter 2.0 cm LV Ejection Fraction 2D Teich 59.1 % LV Ejection Fraction MOD 2C 66.3 % LV Ejection Fraction 2C AL 65.1 % LA Diameter 3.2 cm IVC Diameter 1.4 cm M-MODE Aortic Annulus Diameter 2.9 cm LA Ao Ratio MM 1.2 MV E Point Septal Separation 0.9 cm DOPPLER AV Peak Velocity 128.0 cm/s LVOT Peak Velocity 80.0 cm/s AV Area Cont Eq vti 2.5 cm squared AV Area Cont Eq pk 1.9 cm squared MV E' Velocity 6.0 cm/s TR Peak Velocity 247.0 cm/s TR Peak Gradient 24.4 mmHg Right Atrial Pressure 3.0 mmHg Pulmonary Artery Systolic Pressu 27.4 mmHg RV Acceleration Time 0.2 s FINDINGS Left Ventricle Normal left ventricular size, systolic function and mildly increased wall thickness, with no regional wall motion abnormalities. Left ventricular ejection fraction is estimated at 60 %. Abnormal diastolic function. Right Ventricle Normal right ventricular size and systolic function. RVSP could not be calculated due to incomplete tricuspid regurgitation velocity profile. Right Atrium Normal right atrial size. Left Atrium Normal left atrial size. Mitral Valve Structurally normal mitral valve. No mitral valve stenosis. Mild to moderate mitral valve regurgitation. Aortic Valve Structurally normal trileaflet aortic valve. No aortic valve stenosis. Moderate aortic valve regurgitation. Tricuspid Valve Structurally normal tricuspid valve. No tricuspid valve stenosis. Mild tricuspid valve regurgitation. Pulmonic Valve Pulmonic valve not well visualized. No pulmonary valve stenosis. No pulmonary valve regurgitation. Pericardium No pericardial effusion. Aorta Normal size aortic root and proximal ascending aorta. IVC Normal IVC dimension with >50% respiratory change of the inferior vena cava. CONCLUSIONS 1. Normal left ventricular size, systolic function and mildly increased wall thickness, with no regional wall motion abnormalities. Left ventricular ejection fraction is estimated at 60 %. Abnormal diastolic function. 2. Normal right ventricular size and systolic function. 3. Moderate aortic valve regurgitation. 4. Mild to moderate mitral valve regurgitation. 5. No prior similar studies to compare. Audrey Martinez MD (Electronically Signed) Final Date: 05 April 2022 22:41 S
== END 2022-04-02 07:33 | disposition home or self-care (01) ==
LOC: RAD 07:33
PROVIDERS: PCP Family Medicine; Visit Provider Internal Medicine Cardiovascular Disease
DX: R42 Dizziness and giddiness (principal); R55 Syncope and collapse; R01.1 Cardiac murmur, unspecified; I08.0 Rheumatic disorders of both mitral and aortic valves
CPT/HCPCS: 93306

== ENCOUNTER → 2022-06-23 15:42 | Outpatient (BNVA) | payer MEDICAID, SELFPAY | PROVIDERS: PCP Family Medicine; Visit Provider Nurse Practitioner Family | DX: R42 Dizziness and giddiness (principal); R55 Syncope and collapse | CPT/HCPCS: 99214 ==

== ENCOUNTER → 2022-06-30 09:08 | Outpatient (BNVA) | payer MEDICAID, SELFPAY | PROVIDERS: PCP Family Medicine; Visit Provider Nurse Practitioner Family | DX: R42 Dizziness and giddiness (principal); R55 Syncope and collapse | CPT/HCPCS: 93270 ==

== ENCOUNTER 2022-07-14 13:18 | Oncology outpatient (recurring) (ONCR) | payer MEDICAID, SELFPAY ==
[2022-07-14 13:47] LABS: Basophils % 0.3 %; Eosinophils % 0.6 %; Hematocrit 32.1 % (37.0-47.0); Hemoglobin 10.9 g/dL (11.5-15.3); Lymphocytes # 0.7 10^3/uL (0.8-4.8); Lymphocytes % 11.4 %; Mean Corpuscular Hemoglobin 29.9 pg (28.0-34.0); Mean Corpuscular Volume 88.2 fl (81-99); Mean Platelet Volume 9.2 fL (7.4-10.4); Monocytes # 0.7 10^3/uL (0.2-0.9); Monocytes % 10.6 %; Neutrophils # 4.77 10^3/uL (1.8-7.7); Neutrophils % 76.9 %; Nucleated Red Blood Cells % 0 %; Platelet Count 256 10^3/cmm (130-400); Red Blood Count 3.64 10^6/uL (4.1-5.3); Red Cell Distribution Width 13.2 % (12.1-15.1); White Blood Count 6.2 10^3/uL (4.0-10.0)
[2022-07-14 14:09] LABS: Ferritin 51 ng/mL (15-150); Iron 103 ug/dL (37-145); Percent Saturation 29.5 % (20-50); Total Iron Binding Capacity 349 mcg/dl; Unsaturated Iron Binding 246 ug/dL (112-347)
== END 2022-07-30 23:59 | disposition home or self-care (01) ==
PROVIDERS: Nurse Practitioner; PCP Family Medicine; Visit Provider Internal Medicine Medical Oncology
DX: D50.9 Iron deficiency anemia, unspecified (principal); R53.83 Other fatigue; Z95.828 Presence of other vascular implants and grafts; Z79.899 Other long term (current) drug therapy
CPT/HCPCS: 36591; 82728; 83540; 83550; 85025; 99214

== ENCOUNTER → 2022-08-03 15:37 | Outpatient (BNVA) | payer MEDICAID, SELFPAY | PROVIDERS: PCP Family Medicine; Visit Provider Nurse Practitioner Family | DX: R42 Dizziness and giddiness (principal); R55 Syncope and collapse; Z87.891 Personal history of nicotine dependence | CPT/HCPCS: 99213 ==

== ENCOUNTER 2022-09-09 12:01 | Oncology outpatient (recurring) (ONCR) | payer MEDICAID, SELFPAY ==
[2022-09-08 14:25] VITALS: BP 117/73; PULSE 85; RESP 18; TEMP 36.4; O2SAT 96
[2022-09-08 14:29] LABS: Basophils % 0.6 %; Eosinophils # 0.5 10^3/uL (0.0-0.8); Eosinophils % 7.4 %; Hematocrit 35.3 % (37.0-47.0); Hemoglobin 11.5 g/dL (11.5-15.3); Lymphocytes # 1.1 10^3/uL (0.8-4.8); Lymphocytes % 16.7 %; Mean Corpuscular HGB Conc 32.6 g/dL (30.0-36.0); Mean Corpuscular Hemoglobin 29.4 pg (28.0-34.0); Mean Corpuscular Volume 90.3 fl (81-99); Mean Platelet Volume 9.8 fL (7.4-10.4); Monocytes # 0.9 10^3/uL (0.2-0.9); Monocytes % 13.5 %; Neutrophils # 4.08 10^3/uL (1.8-7.7); Neutrophils % 61.3 %; Nucleated Red Blood Cells % 0 %; Platelet Count 299 10^3/cmm (130-400); Red Blood Count 3.91 10^6/uL (4.1-5.3); Red Cell Distribution Width 13.2 % (12.1-15.1); White Blood Count 6.7 10^3/uL (4.0-10.0)
[2022-09-08 14:57] LABS: Alanine Aminotransferase 19 U/L (0-33); Albumin Level 4.1 g/dL (3.5-5.2); Alkaline Phosphatase 72 U/L (35-105); Anion Gap 16.1 (5-19); Aspartate Amino Transferase 30 U/L (0-32); Blood Urea Nitrogen 16 mg/dL (8-23); Calcium 8.6 mg/dL (8.5-10.5); Carbon Dioxide 30 mmol/L (22-29); Chloride 94 mmol/L (98-107); Ferritin 33 ng/mL (15-150); Globulin 1.8 g/dL (1.3-4.6); Glomerular Filtration Rate 63.7 mL/min (90-130); Glucose 118 mg/dL (65-115); Iron 91 ug/dL (37-145); Osmolality Calculated 288 mOsm/kg (285-295); Percent Saturation 26.3 % (20-50); Sodium 138 mmol/L (136-145); Total Bilirubin 0.3 mg/dL (0.15-1.2); Total Iron Binding Capacity 346 mcg/dl; Total Protein 5.9 g/dL (6.6-8.7); Unsaturated Iron Binding 255 ug/dL (112-347)
[2022-09-08 15:02] LABS: Potassium 2.1 mmol/L (3.5-5.1)
--- NOTE | 2022-09-08 16:36 | PC.NURSE ---
This nurse called the patient to let her know about her lab results with a low K+ and that Dr. Medina wants her to come in tomorrow for K+ Mina. Patient did not answer call so I left a message for her to return my phone call.
--- NOTE | 2022-09-09 08:23 | PC.NURSE ---
Patient returned my phone call this morning and I let her know that Dr. Medina wants her to come in today for a Potassium infusion for a low K+ level from the labs were drawn yesterday. Patient asked about what the symptoms would be with a low K+ and I let her know and she has been showing some signs of low K+. I let the patient know that we have her scheduled at 12:00 pm for the infusion. Patient confimed appt and had no other questions or concerns.
[2022-09-09 12:20] VITALS: BP 128/54; PULSE 80; RESP 16; TEMP 35.9; O2SAT 99
[2022-09-09] MEDS: sodium chlor 0.9% + KCl 40 mEq 40 MEQ/1,000 ML BAG 250 MEQ IV (13:39)
[2022-09-09 15:27] LABS: Anion Gap 13.3 (5-19); Blood Urea Nitrogen 12 mg/dL (8-23); Calcium 8.7 mg/dL (8.5-10.5); Carbon Dioxide 30 mmol/L (22-29); Chloride 97 mmol/L (98-107); Glomerular Filtration Rate 85.1 mL/min (90-130); Glucose 84 mg/dL (65-115); Magnesium 1.8 mg/dL (1.7-2.3); Osmolality Calculated 285 mOsm/kg (285-295); Sodium 138 mmol/L (136-145)
[2022-09-09 15:41] LABS: Potassium 2.3 mmol/L (3.5-5.1)
[2022-09-09 16:51] VITALS: BP 111/74; PULSE 71; RESP 16; TEMP 36.2
== END 2022-09-29 23:59 | disposition home or self-care (01) ==
PROVIDERS: Nurse Practitioner; PCP Family Medicine; Visit Provider Internal Medicine Medical Oncology
DX: E87.6 Hypokalemia (principal)
CPT/HCPCS: 80048; 80053; 82728; 83540; 83550; 83735; 85025; J1642

== ENCOUNTER → 2022-10-08 08:33 | Outpatient (BNVA) | payer MEDICAID, SELFPAY | PROVIDERS: PCP Family Medicine; Visit Provider Nurse Practitioner Family | DX: L82.0 Inflamed seborrheic keratosis (principal); B35.1 Tinea unguium; L81.4 Other melanin hyperpigmentation; L57.0 Actinic keratosis; D22.5 Melanocytic nevi of trunk; L57.8 Other skin changes due to chronic exposure to nonionizing radiation | CPT/HCPCS: 17000; 17003; 17110; 99213 ==

== ENCOUNTER 2022-10-26 11:30 | Oncology outpatient (recurring) (ONCR) | payer MEDICAID, SELFPAY ==
[2022-10-26 11:36] VITALS: BP 143/76; PULSE 56; RESP 18; TEMP 36.2; O2SAT 98
[2022-10-26 11:52] LABS: Basophils % 0.4 %; Eosinophils # 0.1 10^3/uL (0.0-0.8); Eosinophils % 1.6 %; Hematocrit 36.2 % (37.0-47.0); Hemoglobin 11.7 g/dL (11.5-15.3); Lymphocytes % 18.2 %; Mean Corpuscular HGB Conc 32.3 g/dL (30.0-36.0); Mean Corpuscular Hemoglobin 28.9 pg (28.0-34.0); Mean Corpuscular Volume 89.4 fl (81-99); Mean Platelet Volume 9.7 fL (7.4-10.4); Monocytes # 0.7 10^3/uL (0.2-0.9); Monocytes % 11.7 %; Neutrophils # 3.75 10^3/uL (1.8-7.7); Neutrophils % 67.7 %; Nucleated Red Blood Cells % 0 %; Platelet Count 196 10^3/cmm (130-400); Red Blood Count 4.05 10^6/uL (4.1-5.3); Red Cell Distribution Width 14.3 % (12.1-15.1); White Blood Count 5.5 10^3/uL (4.0-10.0)
[2022-10-26 12:10] LABS: Alanine Aminotransferase 13 U/L (0-33); Albumin Level 3.9 g/dL (3.5-5.2); Alkaline Phosphatase 84 U/L (35-105); Anion Gap 19.3 (5-19); Aspartate Amino Transferase 29 U/L (0-32); Blood Urea Nitrogen 7 mg/dL (8-23); Calcium 8.3 mg/dL (8.5-10.5); Carbon Dioxide 24 mmol/L (22-29); Chloride 96 mmol/L (98-107); Ferritin 39 ng/mL (15-150); Globulin 1.9 g/dL (1.3-4.6); Glomerular Filtration Rate 101.6 mL/min (90-130); Glucose 78 mg/dL (65-115); Iron 111 ug/dL (37-145); Osmolality Calculated 281 mOsm/kg (285-295); Sodium 137 mmol/L (136-145); Total Bilirubin 0.5 mg/dL (0.15-1.2); Total Iron Binding Capacity 308 mcg/dl; Total Protein 5.8 g/dL (6.6-8.7); Unsaturated Iron Binding 197 ug/dL (112-347)
[2022-10-26 12:24] LABS: Potassium 2.3 mmol/L (3.5-5.1)
[2022-10-26 13:23] LABS: Magnesium 1.6 mg/dL (1.7-2.3)
[2022-10-26] MEDS: potassium chloride premix 100 ML 25 MEQ IV (14:12)
[2022-10-26] MEDS: sodium chloride 0.9% 250 ML IV (14:12)
[2022-10-26 16:20] VITALS: BP 148/89; PULSE 71; RESP 16; TEMP 36.5; O2SAT 96
== END 2022-10-29 23:59 | disposition home or self-care (01) ==
PROVIDERS: Nurse Practitioner; Nurse Practitioner Family; PCP Family Medicine; Visit Provider Internal Medicine Medical Oncology
DX: D50.9 Iron deficiency anemia, unspecified (principal); E87.6 Hypokalemia; E83.42 Hypomagnesemia; Z79.899 Other long term (current) drug therapy; Z95.828 Presence of other vascular implants and grafts
CPT/HCPCS: 36591; 80053; 82728; 83540; 83550; 83735; 85025; 96365; 96366; 99214; J1642; J3480; J7050

== ENCOUNTER → 2022-10-27 14:40 | Outpatient (BNVA) | payer MEDICAID, SELFPAY | PROVIDERS: PCP Family Medicine; Visit Provider Internal Medicine Cardiovascular Disease | DX: R42 Dizziness and giddiness (principal); R55 Syncope and collapse; M79.89 Other specified soft tissue disorders; K21.9 Gastro-esophageal reflux disease without esophagitis; F10.10 Alcohol abuse, uncomplicated; R94.5 Abnormal results of liver function studies; Z87.891 Personal history of nicotine dependence | CPT/HCPCS: 99214 ==

== ENCOUNTER 2022-11-11 12:40 | Outpatient (CLI) | payer MEDICAID, SELFPAY ==
[2022-11-11 13:18] LABS: Anion Gap 17.1 (5-19); Blood Urea Nitrogen 7 mg/dL (8-23); Calcium 8.8 mg/dL (8.5-10.5); Carbon Dioxide 28 mmol/L (22-29); Chloride 102 mmol/L (98-107); Glomerular Filtration Rate 85.1 mL/min (90-130); Glucose 80 mg/dL (65-115); Magnesium 1.5 mg/dL (1.7-2.3); Osmolality Calculated 295 mOsm/kg (285-295); Potassium 3.1 mmol/L (3.5-5.1); Sodium 144 mmol/L (136-145)
== END 2022-11-11 12:41 | disposition home or self-care (01) ==
PROVIDERS: PCP Family Medicine; Visit Provider Internal Medicine Cardiovascular Disease
DX: E87.6 Hypokalemia (principal); E83.42 Hypomagnesemia; R42 Dizziness and giddiness; R55 Syncope and collapse
CPT/HCPCS: 36415; 80048; 83735

== ENCOUNTER 2022-11-23 12:11 | Oncology outpatient (recurring) (ONCR) | payer MEDICAID, SELFPAY ==
[2022-11-23 10:15] VITALS: BMI 22.2
[2022-11-23 10:16] VITALS: BP 147/87; PULSE 72; RESP 18; TEMP 35.8
[2022-11-23 10:42] LABS: Alanine Aminotransferase 16 U/L (0-33); Albumin Level 3.5 g/dL (3.5-5.2); Alkaline Phosphatase 92 U/L (35-105); Anion Gap 14.6 (5-19); Aspartate Amino Transferase 27 U/L (0-32); Blood Urea Nitrogen 7 mg/dL (8-23); Calcium 8.5 mg/dL (8.5-10.5); Carbon Dioxide 31 mmol/L (22-29); Chloride 97 mmol/L (98-107); Globulin 1.8 g/dL (1.3-4.6); Glomerular Filtration Rate 101.6 mL/min (90-130); Glucose 113 mg/dL (65-115); Magnesium 1.4 mg/dL (1.7-2.3); Osmolality Calculated 289 mOsm/kg (285-295); Sodium 140 mmol/L (136-145); Total Bilirubin 0.6 mg/dL (0.15-1.2); Total Protein 5.3 g/dL (6.6-8.7)
[2022-11-23 10:44] LABS: Potassium 2.6 mmol/L (3.5-5.1)
[2022-11-23] MEDS: sodium chlor 0.9% + KCl 40 mEq 40 MEQ/1,000 ML BAG 500 MEQ IV (12:45)
[2022-11-23 14:00] VITALS: BP 148/88; PULSE 82; TEMP 36.9; O2SAT 99
[2022-11-23 16:19] VITALS: BP 146/94; PULSE 82; TEMP 36.9
== END 2022-11-29 23:59 | disposition home or self-care (01) ==
PROVIDERS: Nurse Practitioner Family; PCP Family Medicine; Visit Provider Internal Medicine Medical Oncology
DX: E87.6 Hypokalemia (principal); E83.42 Hypomagnesemia
CPT/HCPCS: 36591; 80048; 80053; 83735; 96365; 96366; J1642

== ENCOUNTER 2022-12-09 12:42 | Outpatient (CLI) | payer MEDICAID, SELFPAY ==
--- NOTE | 2022-12-09 12:56 | XR_ITS ---
WS: [id number] XR hip LT 2-3V wo/w pel* [id number] REASON FOR EXAM: L HIP PAIN/SACROCOCCYGEAL D/O FINDINGS: No fracture or focal bone lesion. Mild narrowing of the joint space. Mild subchondral sclerosis and osteophytosis of the acetabulum. No soft tissue abnormality. IMPRESSION: Mild osteoarthritis of the left hip.
== END 2022-12-09 12:43 | disposition home or self-care (01) ==
PROVIDERS: PCP Family Medicine; Visit Provider Nurse Practitioner Psychiatric/Mental Health
DX: M16.12 Unilateral primary osteoarthritis, left hip (principal)
CPT/HCPCS: 73502

== ENCOUNTER 2022-12-22 11:19 | Observation (INO) | payer MEDICAID, SELFPAY ==
[2022-12-22] VITALS (15 sets, daily range): BP systolic 97–158; BP diastolic 65–103; PULSE 75–128; RESP 14–26; TEMP 36.4–36.8; O2SAT 96–99
--- NOTE | 2022-12-22 14:06 | ED_ITS ---
HPI - Nausea/Vomiting/Diarrhea General: Chief complaint: Nausea/Vomiting/Diarrhea Stated complaint: dizzy , n/v , sweating, low blood presure Time Seen by Provider: 12/22/22 13:54 Source: patient Mode of arrival: ambulatory Limitations: no limitations History of Present Illness: Patient is a 62-year-old female with history of iron deficiency anemia requiring port a cath for IV infusions, peptic ulcer disease (history of perforation with partial gastrectomy), history of small bowel resection/colectomy due to a mass found and later a SBO, chronic back pain who presents to the emergency department complaining of nausea/vomiting, weakness, dizziness and fatigue onset 2 days. Patient has a history of chronic iron deficiency anemia, for which she is followed by Dr. Medina over at the heme-onc office. Has history of hypokalemia. She states that she has felt this way in the past when her hemoglobin and potassium is low, but that this episode is more severe than the rest. She states she cannot keep anything down, including liquids. She can feel palpitations, but denies any chest pain or shortness of breath. She also reports being severely chilled, but denies feeling febrile or taking her t emperature. She denies any abdominal pain or bloody emesis/hematochezia. Patient does report drinking several strong cocktails on Tuesday/ before symptoms started. She states she takes Suboxone for her chronic back pain. Tablet is sublingual so thinks it is still absorbing but states she has been vomiting up her other medications. MD elicited complaint: nausea and vomiting Pertinent past history: other (Iron deficiency anemia and hypokalemia) Onset (ago): day(s) Description of vomiting: bilious Associated nausea: Yes Associated abdominal pain: No Location of pain: None Exacerbating factors: other (dizziness worse with positional changes; better with lying down/rest) Associated symtoms: Reports dizziness, fatigue, malaise, nausea and palpitations; Denies change in vision, chest pain, dysuria, headache(s) or syncope Review of Systems Const: Reports: chills, change in appetite, fatigue and malaise; Denies: fever(s) Eyes: Denies: change in vision or blurry vision Card: Reports: palpitations and lightheadedness; Denies: chest pain, irregular heart rhythm, syncope or dyspnea on exertion Resp: Denies: dyspnea, productive cough or pain on inspiration GI: Reports: nausea and vomiting; Denies: abdominal pain, hematemesis, diarrhea, constipation, hematochezia or melena : Denies: flank pain, difficulty voiding, dysuria, urinary frequency or hematuria Musc: Reports: back pain (Chronic); Denies: neck pain, extremity pain, extremity swelling or joint pain Skin/Breast: Denies: rash Neuro: Reports: dizziness; Denies: headache(s), numbness in extremities, weakness in extremities, lack of coordination, difficulty walking, frequent falls, confusion, Slurred speech present or difficulty communicating thoughts PFSH ED PFSH: Medical History Chronic back pain Constipation Cystitis cystica Depression Diverticulosis Fibromyalgia Iron deficiency anemia Major depressive disorder, recurrent, mild Osteoporosis Peptic ulcer disease Status post extracorporeal shock wave therapy URETERAL STENT PLACEMENT Undifferentiated somatoform disorder Surgical History H/O bilateral breast reduction surgery H/O colonoscopy (10/14/20) Diverticulosis H/O rhinoplasty Nasal fracture H/O right knee surgery H/O: hysterectomy For fibroid and endometriosis / BSO History of appendectomy History of bone marrow biopsy History of partial gastrectomy Secondary to peptic ulcer disease, perforated ulcer / partial transverse colectomy with reanastomosis ([place], [place]) History of tonsillectomy Hx of cholecystectomy Port-A-Cath in place Placed for transfusions for chronic anemia S/P LASIK surgery of both eyes Family History Father , IN HIS 50'S No problems noted. Mother , AT AGE 78 Cancer OVARIAN Myocardial infarction Stroke Sister CAD (coronary artery disease) Other Hypertension Psychiatric illness Social History Smoking and tobacco status: former smoker Alcohol intake: current Alcohol intake frequency: holidays/special occasions only Substance/Drug Use: never Adopted: No Caregiver/support person: No Housing: House Marital status: Current occupational status: disabled Physical Exam Const: COMMON NORMALS: no acute distress, patient oriented x3, no limitations, healthy appearing, alert and well nourished GENERAL APPEARANCE: cooperative NUTRITIONAL APPEARANCE: thin ORIENTATION/CONSCIOUSNESS: Yes awake, Yes oriented to person, Yes oriented to place and Yes oriented to time OTHER: Actively retching on examination HENMT: COMMON NORMALS: normocephalic and atraumatic HEAD & SCALP: normal to inspection, normocephalic and atraumatic Eye: COMMON NORMALS: no scleral icterus Neck/C-Spine: COMMON NORMALS: full ROM, no lymphadenopathy, supple and no meningeal signs Chest: COMMONS NORMALS: normal inspection of the chest Resp: COMMON NORMALS: normal respiratory effort and clear to auscultation bilaterally AUSCULTATION: clear to auscultation bilaterally Cardio: COMMON NORMALS: regular rhythm, No gallops present (Cardio), No clicks present (Cardio) and No murmurs present (Cardio) RATE: tachycardic RHYTHM: regular rhythm GI: COMMON NORMALS: Normal to inspection, nondistended, normoactive bowel sounds present, Soft to palpation, non-tender, No hepatosplenomegaly present and no masses PALPATION: Yes Soft to palpation and Yes No hepatosplenomegaly present : COMMON NORMALS: Yes no CVA tenderness BLADDER/KIDNEY EXAM: Yes no CVA tenderness Back/Pelvis: COMMON NORMALS: no CVA tenderness and thoracic and lumbar spine normal to inspection Extremity: COMMON NORMALS: normal to inspection GENERAL: Yes normal exam except as noted Neuro: ALBERT COMA SCALE: document GCS findings [place] coma scale eye opening: Spontaneous [place] coma scale verbal response: Orientated [place] coma scale motor response: Obey commands [place] coma scale total score: 15 COMMON NORMALS: patient oriented x3, CN's II-XII intact bilaterally, moves all extremities, no focal motor deficits and no sensory deficits noted SENS ORIUM/ORIENTATION: Yes alert, Yes oriented to person, Yes oriented to place and Yes oriented to time MENINGEAL SIGNS: Yes no meningeal signs Skin: COMMON NORMALS: no rashes or lesions noted GENERAL SKIN EXAM: no rashes or lesions noted Course Consultations: Consultation #1: Dr. Parikh-recommends an additional 40 meq IV potassium; admit to obs/med-surg with tele Vital Signs: Vital signs: Vital Signs Temperature 97.5 F L 12/22/22 11:42 Pulse Rate 90 12/22/22 14:18 Respiratory Rate 16 12/22/22 14:18 Blood Pressure 158/95 12/22/22 15:30 Pulse Oximetry 99 12/22/22 15:30 Oxygen Delivery Me thod Room Air 12/22/22 14:18 MDM - Nausea/Vomiting/Diarrhea Medical Decision Making Patient is a nice 62-year-old female presents to ED today with a complaint of weakness, dizziness, and nausea and vomiting over the past 2 to 3 days. She arrives tachycardic however this has improved. Blood work showing profound hypokalemia at 2.3. She does have comitant hypomagnesemia so these both were replaced. Elevated glucose at 248. She is not a diabetic. DKA ruled out. EKG initially ordered secondary to tachycardia and hypokalemia. It does show widespread ST depression. Patient does not complain of chest pain, shortness of breath, difficulty breathing. Trop series added. Baseline troponin is 43 with a negative delta. I spoke to Dr. Doran who agrees with need for hospitalization. Spoke to hospitalist Dr. Parikh who recommends admit to obs. Lab Data 12/22/22 14:20 12/22/22 14:20 Laboratory Results WBC 13.04 10^3/uL (3.29-11.43) H 12/22/22 14:20 RBC 5.00 10^6/uL (3.85-5.65) 12/22/22 14:20 Hgb 15.10 g/dL (11.27-16.99) 12/22/22 14:20 Hct 44.1 % (36-47) 12/22/22 14:20 MCV 88.2 fl (85-98) 12/22/22 14:20 MCH 30.2 pg (27-33) 12/22/22 14:20 MCHC 34.2 g/dL (30-55) 12/22/22 14:20 RDW 14.0 % (12.1-15.1) 12/22/22 14:20 Plt Count 367 10^3/cmm (157-399) 12/22/22 14:20 MPV 10.1 fL (7.4-10.4) 12/22/22 14:20 Neut % (Auto) 87.9 % 12/22/22 14:20 Lymph % (Auto) 4.5 % 12/22/22 14:20 [place] % (Auto) 7.1 % 12/22/22 14:20 Eos % (Auto) 0.0 % 12/22/22 14:20 Baso % (Auto) 0.2 % 12/22/22 14:20 Neut # (Auto) 11.45 10^3/uL (1.8-7.7) H 12/22/22 14:20 Lymph # (Auto) 0.6 10^3/uL (0.8-4.8) L 12/22/22 14:20 [place] # (Auto) 0.9 10^3/uL (0.2-0.9) 12/22/22 14:20 Eos # (Auto) 0.0 10^3/uL (0.0-0.8) 12/22/22 14:20 Baso # (Auto) 0.0 10^3/uL (0.0-0.1) 12/22/22 14:20 Nucleated RBC % (auto) 0 % 12/22/22 14:20 Nucleated RBCs # 0.0 /100WBC 12/22/22 14:20 Specimen Type Arterial 12/22/22 15:38 Sample Site Brachial, left 12/22/22 15:38 ABG pH 7.42 (7.35-7.45) 12/22/22 15:38 ABG pCO2 47.0 mmHg (35-45) H 12/22/22 15:38 ABG pO2 79.4 mmHg (80.0-100.0) L 12/22/22 15:38 ABG HCO3 30.7 mmol/L (22-26) H 12/22/22 15:38 ABG O2 Saturation 95.3 12/22/22 15:38 ABG Base Excess 5.3 mmol/L (-2.0-2.0) H 12/22/22 15:38 Puneet Test Pos 12/22/22 15:38 A-a O2 Gradient 1.7 mmHg (5-10) L 12/22/22 15:38 Hematocrit 40.6 % (37-47) 12/22/22 15:38 Hgb O2 Saturation 93.9 % (95-100) L 12/22/22 15:38 Carboxyhemoglobin 0.8 %THgb (0.4-20.1) 12/22/22 15:38 Methemoglobin 0.6 % (0.4-1.5) 12/22/22 15:38 Total Hemoglobin 13.3 g/dL (12-16) 12/22/22 15:38 Sodium 141.0 mmol/L (131-143) 12/22/22 15:38 Potassium 1.9 mmol/L (3.5-5.0) L 12/22/22 15:38 Glucose 156.0 mg/dL (70-115) H 12/22/22 15:38 Ionized Calcium 1.2 mmol/L (1.1-1.4) 12/22/22 15:38 O2 Delivery Device Room air 12/22/22 15:38 FiO2 21.0 % 12/22/22 15:38 Tobacco Educator ID Cak 12/22/22 15:38 Sodium 138 mmol/L (136-145) 12/22/22 14:20 Potassium 2.3 mmol/L (3.5-5.1) L* 12/22/22 14:20 Chloride 90 mmol/L (98-107) L 12/22/22 14:20 Carbon Dioxide 30 mmol/L (22-29) H 12/22/22 14:20 Anion Gap 20.3 (5-19) H 12/22/22 14:20 BUN 17 mg/dL (8-23) 12/22/22 14:20 Creatinine 1.1 mg/dL (0.5-0.9) H 12/22/22 14:20 GFR Calculation 50.5 mL/min (90-130) L 12/22/22 14:20 Glucose 248 mg/dL (65-115) H 12/22/22 14:20 Calculated Osmolality 296 mOsm/kg (285-295) H 12/22/22 14:20 Calcium 10.3 mg/dL (8.5-10.5) 12/22/22 14:20 Magnesium 1.5 mg/dL (1.7-2.3) L 12/22/22 14:20 Total Bilirubin 0.5 mg/dL (0.15-1.2) 12/22/22 14:20 AST 38 U/L (0-32) H 12/22/22 14:20 ALT 25 U/L (0-33) 12/22/22 14:20 Alkaline Phosphatase 91 U/L (35-105) 12/22/22 14:20 Troponin T Baseline 43 ng/L (0-10) H 12/22/22 14:20 Total Protein 6.7 g/dL (6.6-8.7) 12/22/22 14:20 Albumin 4.9 g/dL (3.5-5.2) 12/22/22 14:20 Globulin 1.8 g/dL (1.3-4.6) 12/22/22 14:20 Lipase 20 U/L (13-60) 12/22/22 14:20 Serum Ketones Negative (Negative) 12/22/22 14:20 Discharge Plan Discharge Patient Disposition: Placed in Observation Clinical Impression: Hypomagnesemia, Hypokalemia, ST segment depression Coding Level of Care Code ED Embedded Processor for Latia Harper
--- NOTE | 2022-12-22 14:21 | ECG_ITS ---
[facility] Test Date: 2022-12-22 Pat Name: Preeti Odom Department: Room: Gender: Female Cna Caregiver: : 1960 Requested By: Vivian Basilio Order Number: [id number] Ehsan MD: Lis Miles M.D. Measurements Intervals [place] Rate: 115 P: 63 [place]: 159 QRS: 61 QRSD: 89 T: 30 QT: 409 QTc: 567 Interpretive Statements Possible atrial flutter POSSIBLE RIGHT ATRIAL ENLARGEMENT [0.25mV P-WAVE] ST DEVIATION AND MARKED T-WAVE ABNORMALITY, CONSIDER ANTEROLATERAL ISCHEMIA [-0.5+ mV T-WAVE IN I/aVL/V3-V6] ST DEVIATION AND MARKED T-WAVE ABNORMALITY, CONSIDER INFERIOR ISCHEMIA [-0.5+ mV T-WAVE IN II/aVF] Compared to ECG 12/25/2021 20:34:19 T-wave abnormality now present Possible ischemia now present Sinus rhythm no longer present Myocardial infarct finding no longer present Electronically Signed On 12-22-2022 20:51:03 CDT by Lis Miles M.D. [id number]
[2022-12-22] MEDS: sodium chloride 0.9% 1,000 ML 999 ML IV (14:33)
[2022-12-22] MEDS: ondansetron 2 mg/ML SDV 2 mL 4 MG IVP (14:33)
[2022-12-22 14:41] LABS: Basophils % 0.2 %; Hematocrit 44.1 % (36-47); Lymphocytes # 0.6 10^3/uL (0.8-4.8); Lymphocytes % 4.5 %; Mean Corpuscular HGB Conc 34.2 g/dL (30-55); Mean Corpuscular Hemoglobin 30.2 pg (27-33); Mean Corpuscular Volume 88.2 fl (85-98); Mean Platelet Volume 10.1 fL (7.4-10.4); Monocytes # 0.9 10^3/uL (0.2-0.9); Monocytes % 7.1 %; Neutrophils # 11.45 10^3/uL (1.8-7.7); Neutrophils % 87.9 %; Nucleated Red Blood Cells % 0 %; Platelet Count 367 10^3/cmm (157-399); White Blood Count 13.04 10^3/uL (3.29-11.43)
--- NOTE | 2022-12-22 14:54 | PC.NURSE ---
Pt brought back to room 6 from triage and placed on monitors.
[2022-12-22 15:09] LABS: Troponin(5th) Baseline 43 ng/L (0-10)
[2022-12-22 15:12] LABS: Alanine Aminotransferase 25 U/L (0-33); Albumin Level 4.9 g/dL (3.5-5.2); Alkaline Phosphatase 91 U/L (35-105); Anion Gap 20.3 (5-19); Aspartate Amino Transferase 38 U/L (0-32); Blood Urea Nitrogen 17 mg/dL (8-23); Calcium 10.3 mg/dL (8.5-10.5); Carbon Dioxide 30 mmol/L (22-29); Chloride 90 mmol/L (98-107); Globulin 1.8 g/dL (1.3-4.6); Glomerular Filtration Rate 50.5 mL/min (90-130); Glucose 248 mg/dL (65-115); Lipase 20 U/L (13-60); Osmolality Calculated 296 mOsm/kg (285-295); Sodium 138 mmol/L (136-145); Total Bilirubin 0.5 mg/dL (0.15-1.2); Total Protein 6.7 g/dL (6.6-8.7)
[2022-12-22 15:18] LABS: Potassium 2.3 mmol/L (3.5-5.1)
--- NOTE | 2022-12-22 15:31 | XR_ITS ---
WS: [id number] EXAMINATION: XR chest 1V portable [id number] REASON FOR EXAM: chest pain COMPARISON: 03/25/2021 ORDER DATE: 12/22/2022 3:32 PM TECHNIQUE: A single, portable frontal chest x-ray was obtained. X-RAY FINDINGS: The lungs are clear of infiltrate. There is a smooth linear marginated ovoid nodule 15 mm in long axi s in the mid lateral subpleural region no calcification. . Pleural spaces are clear. No pleural effusions or pneumothorax. Cardiomediastinal silhouette is normal. No evidence for pulmonary edema. Soft tissue and osseous structures are unremarkable. Right-sided Port-A-Cath noted in satisfactory position. IMPRESSION: New ovoid subpleural nodule as described near the mid lateral left chest wall this could represent a lipoma but other nodule cannot be excluded and would recommend elective CT imaging of the chest for f urther assessment..
[2022-12-22] MEDS: lidocaine 1% 5 ML in potassium chloride premix 100 ML 26.25 ML IV (15:45)
--- NOTE | 2022-12-22 15:46 | ECG_ITS ---
[facility] Test Date: 2022-12-22 Pat Name: Preeti Odom Department: Room: Gender: Female Vice President Quality: : 1960 Requested By: Vivian Basilio Order Number: [id number] Ehsan MD: Lis Miles M.D. Measurements Intervals [place] Rate: 89 P: 67 ID: [id number] QRS: 54 QRSD: 84 T: 245 QT: 273 QTc: 332 Interpretive Statements SINUS RHYTHM WITH SINUS ARRHYTHMIA QT PROLONGATION ST DEVIATION AND MODERATE T-WAVE ABNORMALITY, CONSIDER ANTEROLATERAL ISCHEMIA [-0.1+ mV T-WAVE IN V3-V6]/drug effect/electrolyte Compared to ECG 12/22/2022 14:30:08 Sinus tachycardia no longer present T-wave abnormality still present Possible ischemia still present Electronically Signed On 12-22-2022 20:07:41 CDT by Lis Miles M.D. [id number]
[2022-12-22 15:49] LABS: ABG PH Result 7.42 (7.35-7.45); Alveolar-Arterial Oxygen Gradi 1.7 mmHg (5-10); Arterial Blood Gas Hematocrit 40.6 % (37-47); Base Excess ABG 5.3 mmol/L (-2.0-2.0); Blood Gas Allen Test Pos; Blood Gas Operator Identificat CAK; Blood Gas Sample Site Brachial, left; Blood Gas Sample Type Arterial; Carboxyhemoglobin 0.8 %THgb (0.4-20.1); HCO3 ABG 30.7 mmol/L (22-26); HGB O2 Sat 93.9 % (95-100); Ionized Calcium Level - ABG 1.2 mmol/L (1.1-1.4); Methemoglobin 0.6 % (0.4-1.5); Oxygen Device ROOM AIR; Oxygen Saturation ABG 95.3; PO2 ABG 79.4 mmHg (80.0-100.0); Potassium Level - ABG 1.9 mmol/L (3.5-5.0); Total Hemoglobin 13.3 g/dL (12-16)
[2022-12-22 15:51] LABS: Magnesium 1.5 mg/dL (1.7-2.3)
[2022-12-22 15:58] LABS: Ketone (Acetest) Serum Negative (Negative)
[2022-12-22] MEDS: metoclopramide 5 mg/mL SDV 2 mL 10 MG IVP (16:09)
[2022-12-22 16:47] LABS: Troponin 5 2HR 37.07 ng/L (0-10)
[2022-12-22 17:06] LABS: Creatine Phosphokinase 171 U/L (26-192)
--- NOTE | 2022-12-22 17:11 | ECG_ITS ---
[facility] Test Date: 2022-12-22 Pat Name: Preeti Odom Department: Room: Gender: Female Director Nicu: : 1960 Requested By: Vivian Basilio Order Number: [id number] Ehsan MD: Lis Miles M.D. Measurements Intervals [place] Rate: 105 P: 64 [place]: 184 QRS: 45 QRSD: 85 T: 220 QT: 390 QTc: 516 Interpretive Statements SINUS TACHYCARDIA ST DEVIATION AND MODERATE T-WAVE ABNORMALITY, CONSIDER ANTEROLATERAL ISCHEMIA [-0.1+ mV T-WAVE IN V3-V6] ST DEVIATION AND MODERATE T-WAVE ABNORMALITY, CONSIDER INFERIOR ISCHEMIA [-0.1+ mV T-WAVE IN II/aVF] Compared to ECG 12/22/2022 15:46:07 Sinus rhythm no longer present Sinus arrhythmia no longer present T-wave abnormality still present Possible ischemia still present Electronically Signed On 12-22-2022 20:55:09 CDT by Lis Miles M.D. [id number]
[2022-12-22] MEDS: tizanidine 4 mg Tablet PO (17:56)
[2022-12-22] MEDS: sodium chlor 0.9% + KCl 20 mEq 20 MEQ/1,000 ML BAG 100 MEQ IV (17:57)
--- NOTE | 2022-12-22 18:00 | P.HP_ITS ---
Providers/Chief Complaint Admitting Physician: Tina Parikh MD Primary Care Provider: Thanh Meyer MD Chief Complaint: dizzy , n/v , sweating, low blood presure History of Present Illness Preeti Odom is a 62 year old female with history of perforated bleeding peptic ulcer disease, requiring extensive surgery with en-block resection, partial gastrectomy, small bowel resection, and colectomy in 2010 resulting nutritional defieicencies , iron deficiency anemia, chronic back pain and migraines, recurrent episodes of nausea and vomiting which patient attributes to starting suboxone 3 months ago with pain management. She also has orthostatsic hypotension for which she is on daily fludrocortisone. No recent changes in medications except addition of suboxone few months ago. She presents today with persistent nausea vomiting which has been worsening over the past 4 to 5 days. She is noted to have significant electrolyte abnormalities including hypokalemia and hypomagnesemia. She is noted to have some new EKG changes with ST segment depression in the lateral wall leads. Baseline troponin is at 43, trending down to 37 at 2 hours. Review of Systems General: Reports: 10 or more systems reviewed and unremarkable except in HPI and below Const: Denies: fever(s), chills or body aches Eyes: Denies: change in vision, blurry vision or photophobia ENMT: Reports: hoarseness; Denies: throat pain, enlarged tonsils, odynophagia or nasal congestion Card: Denies: chest pain, palpitations, irregular heart rhythm, edema, swelling of feet/ankles, lightheadedness, pre-syncope, dyspnea on exertion or orthopnea Resp: Denies: dyspnea, productive cough, non-productive cough, wheezing, stridor, pain on inspiration, change in phlegm color, hemoptysis or chest congestion GI: Denies: abdominal pain, nausea, vomiting, hematemesis, coffee ground emesis, dysphagia, heartburn, diarrhea, constipation, GI cramping, change in stool character, hematochezia or melena : Denies: flank pain, difficulty voiding, dysuria, urinary frequency, urinary urgency, urinary hesitancy or hematuria Musc: Denies: neck pain, back pain, extremity pain, joint swelling, joint warmth or deformity Neuro: Denies: headache(s), numbness in extremities, weakness in extremities, sensory changes, difficulty walking, frequent falls, dizziness, vertigo, behavioral changes, Slurred speech present or seizure-like activity Psych: Denies: anxiety, depression, suicidal ideation or homicidal ideation Endo: Denies: polyuria, polydipsia, tired all the time, cold intolerance or hot flashes Vadim/Lymph: Denies: easy bruising or easy bleeding Medications/Allergies Home Medications Medication Instructions Recorded Confirmed Last Taken Type montelukast 10 mg tablet 10 mg PO DAILY@20 07/19/19 12/22/22 03/20/21 History (Singulair) tizanidine 4 mg tablet 4 mg PO Q8H PRN Muscle Spasm 10/15/19 12/22/22 10/13/20 History wtzjcuehmdx-qld-uwxbjddqr-hrb 1 tab PO DAILY@10/19/19 12/22/22 03/20/21 History 149-hyalur 500 mg-500 mg-66.7 mg tablet (Jozzvpntzoe-Rusikbpnsrb-EOP (with antiox)) ondansetron HCl 4 mg tablet 4 mg PO Q4H PRN Nausea And Vomiting 05/13/20 12/22/22 12/22/22 History amitriptyline 50 mg tablet 50 mg PO .HS #30 tabs 06/23/21 12/22/22 Unknown Rx duloxetine 60 mg capsule,delayed 60 mg PO DAILY #60 caps 06/23/21 12/22/22 Unknown Rx release (Cymbalta) mupirocin 2 % topical ointment 1 applic topical BID PRN Rash 02/15/22 12/22/22 Unknown History pantoprazole 40 mg tablet,delayed 40 mg PO DAILY 02/15/22 12/22/22 Unknown History release loratadine 10 mg tablet (Claritin) 10 mg PO DAILY@08 PRN Allergy 06/23/22 12/22/22 Unknown History Symptoms buprenorphine 8 mg-naloxone 2 mg 1 tab sublingual DAILY 10/27/22 12/22/22 12/22/22 History sublingual tablet bupropion HCl 200 mg tablet,12 hr 200 mg PO BID PRN Anxiety 10/27/22 12/22/22 Unknown History sustained-release (Wellbutrin SR) magnesium L-lactate 84 mg 84 mg PO BID #180 tabs 11/12/22 12/22/22 Unknown Rx tablet,extended release midodrine 5 mg tablet 5 mg PO TID #270 tabs 11/25/22 12/22/22 Unknown Rx diphenhydramine HCl 25 mg capsule 50 mg PO DAILY 12/22/22 12/22/22 Unknown History (Banophen) hydrochlorothiazide 12.5 mg tablet 12.5 - 15 mg PO DAILY 12/22/22 12/22/22 Unknown History lisinopril 2.5 mg tablet 2.5 mg PO DAILY 12/22/22 12/22/22 Unknown History meloxicam 15 mg tablet 15 mg PO DAILY 12/22/22 12/22/22 Unknown History metoprolol succinate 25 mg 25 mg PO DAILY 12/22/22 12/22/22 Unknown History tablet,extended release 24 hr potassium chloride 20 mEq 40 meq PO BID 12/22/22 12/22/22 Unknown History tablet,extended release tramadol 50 mg tablet 50 mg PO TID PRN Moderate Pain 15 12/23/22 Unknown Rx days #45 tabs Allergies Allergy/AdvReac Type Severity Reaction Status Date / Time morphine AdvReac MIGRAINE Verified 12/22/22 11:48 PFSH Acute PFSH: Medical History (Updated 12/23/22 @ 14:44 by Tina Parikh MD) Chronic back pain Constipation Cystitis cystica Depression Diverticulosis Fibromyalgia Hypokalemia Iron deficiency anemia Major depressive disorder, recurrent, mild Osteoporosis Peptic ulcer disease Status post extracorporeal shock wave therapy URETERAL STENT PLACEMENT Undifferentiated somatoform disorder Surgical History H/O bilateral breast reduction surgery H/O colonoscopy (10/14/20) Diverticulosis H/O rhinoplasty Nasal fracture H/O right knee surgery H/O: hysterectomy For fibroid and endometriosis / BSO History of appendectomy History of bone marrow biopsy History of partial gastrectomy Secondary to peptic ulcer disease, perforated ulcer / partial transverse colectomy with reanastomosis ([place], [place]) History of tonsillectomy Hx of cholecystectomy Port-A-Cath in place Placed for transfusions for chronic anemia S/P LASIK surgery of both eyes Family History Father , IN HIS 50'S No problems noted. Mother , AT AGE 78 Cancer OVARIAN Myocardial infarction Stroke Sister CAD (coronary artery disease) Other Hypertension Psychiatric illness Social History Smoking and tobacco status: former smoker Alcohol intake: current Alcohol intake frequency: holidays/special occasions only Substance/Drug Use: never Adopted: No Caregiver/support person: No Housing: House Marital status: Current occupational status: disabled Vitals/I&O/Wt Last Vital Signs Temp 98.2 F 12/22/22 23:24 Pulse 75 12/22/22 23:24 Resp 14 12/22/22 23:24 BP 131/80 12/22/22 23:24 Pulse Ox 99 12/22/22 23:24 O2 Del Method Room Air 12/22/22 23:24 12/22/22 12/22/22 12/23/22 14:59 22:59 06:59 Intake Total 1385.333 / 1385.333 Balance 1385.333 / 1385.333 Weight last 48 hrs Weight 47.627 kg Physical Exam Narrative: General: No acute distress, AO x3 HEENT: PERRLA, pupils bilaterally equal and reactive, pallors not present Chest: Normal vesicular breath sounds, no added sounds, equal good air entry bilaterally CVS: S1-S2 regular, no murmurs, no tachycardia, no gallops, no rubs Abdomen: Soft, nontender, no organomegaly, bowel sounds present Neuro: No focal deficits, no facial deformity, AO x3, power 5/5 in all limbs Data 12/22/22 14:20 12/23/22 04:33 A&P Assessment and plan (1) Hypokalemia: (2) Hypomagnesemia: (3) Elevated troponin: (4) Abnormal EKG: Plan Patient with multiple gastrointestinal surgical history, chronic malabsorption, presenting today with worsening nausea vomiting, which she thinks may be attributable to recently starting Suboxone 3 months ago. Symptoms have been particularly worse over the last 4 to 5 days. She denies any recent changes in her bowel habits. Denies any fever. She is noted to have multiple electrolyte abnormalities today including hypokalemia and hypomagnesemia likely secondary to her GI losses. She is thus far received 40 mEq of IV KCl, we will go ahead and supplement with an additional IV. Clinically appearing to be dehydrated, will start her on IV fluid resuscitation with normal saline at 100 cc an hour. Supplement magnesium with 1 g IV EKG today is showing T wave inversions in the lateral wall leads, may be related to her current electrolyte abnormalities. We will repeat EKG with correction of electrolytes. Mildly elevated troponins, 45 at baseline, trending down. No chest pain. Low concern for ACS currently. We will monitor on telemetry for any dynamic EKG changes and the 6-hour troponin. Check echocardiogram. Attestations Medical Necessity Statement*: Anticipate less than 2 midnight stay or multiple electrolyte abnormalities related to ongoing GI losses. Coding Level of Care Code Acute Code for Chg Fwd Diagnoses Hypokalemia E87.6 Hypomagnesemia E83.42 Elevated troponin R77.8 Abnormal EKG R94.31
[2022-12-22] MEDS: potassium chloride premix 100 ML 25 MEQ IV (18:01)
--- NOTE | 2022-12-22 18:16 | USCV_ITS ---
Preeti Odom Age: 62 Gender: F : 1960 Exam Date: 12/22/2022 22:38 Ordering Phys: Tina Parikh MD Technologist: CT [place] [facility] [place]: BP: 110 / 72 HR: 93 Rhythm: Sinus Technical Quality: Adequate MEASUREMENTS (Male / Female) Normal Values 2D ECHO LV Chamber Size 4.6 cm RV Chamber Size 3.0 cm LVOT Diameter 1.8 cm LV Ejection Fraction MOD 2C 58.3 % LV Ejection Fraction 2C AL 56.7 % LA Diameter 2.7 cm LA Width 2.6 cm LA Height 3.3 cm RA Width 2.5 cm RA Height 3.1 cm Aorta at Sinotubular Diameter 2.0 cm IVC Diameter 1.7 cm M-MODE Aortic Annulus Diameter 3.3 cm LA Ao Ratio MM 0.9 MV E Point Septal Separation 0.9 cm DOPPLER AV Peak Velocity 181.0 cm/s LVOT Peak Velocity 105.0 cm/s AV Area Cont Eq vti 1.5 cm squared AV Area Cont Eq pk 1.5 cm squared MV Area PHT 5.0 cm squared Mitral E to A Ratio 0.6 MV E' Velocity 36.0 cm/s Mitral E to MV E' Ratio 6.9 Mitral E to LV E' Lateral Ratio 4.9 Mitral E to LV E' Septal Ratio 11.9 TR Peak Velocity 194.3 cm/s TR Peak Gradient 15.1 mmHg TV Peak E Velocity 76.0 cm/s Right Atrial Pressure 3.0 mmHg Pulmonary Artery Systolic Pressu 18.1 mmHg PV Peak Velocity 87.0 cm/s FINDINGS Left Ventricle Left ventricle is normal size. LV systolic function is normal with EF 55 to 60%. No regional wall motion abnormalities are seen. Grade 1 diastolic dysfunction Right Ventricle Normal in size and function Right Atrium Normal in size Left Atrium Normal in size Mitral Valve Mild mitral annular calcification. Mild mitral regurgitation. Aortic Valve Structurally normal aortic valve. No significant aortic stenosis. Moderate aortic regurgitation seen Tricuspid Valve Trace tricuspid regurgitation. Insufficient TR jet to calculate RVSP. Pulmonic Valve Not well-visualized Pericardium Normal Aorta Normal in size IVC Appears to be normal CONCLUSIONS LV systolic function is normal with EF of 55 to 60%. Grade 1 diastolic dysfunction. Mild mitral regurgitation. Moderate aortic regurgitation Trace tricuspid regurgitation Compared to prior echocardiogram from 2021, now has grade 1 diastolic dysfunction Hemanth Jimenez MD (Electronically Signed) Final Date: 23 December 2022 08:30 S
[2022-12-22 18:41] LABS: Add Urine Microscopic? YES; Bilirubin Urine Neg (Negative); Blood Urine Neg (Negative); Glucose Urine UA Norm (Normal); Ketones Urine Negative (Negative); Leukocyte Esterase Urine 1+ (Negative); Nitrate Urine Negative (Negative); Protein Urine Neg (Negative); Sulfosalicylic Acid Urine Negative (Negative); Urine Appearance Cloudy (CLEAR); Urine Color Yellow (Yellow); Urobilinogen Urine Norm (Negative); pH Urine 8 (5-7)
[2022-12-22 18:42] LABS: Add Urine Culture? Yes; Bacteria Urine 4+ /hpf; RBC Urine 0-4 /hpf (0-2); Squamous Epithelial Cell Urine 0-4 /hpf (0-5)
[2022-12-22] MEDS: montelukast sodium 10 mg Tablet PO (20:30)
[2022-12-22] MEDS: fludrocortisone 0.1 mg Tablet PO (20:30)
[2022-12-22] MEDS: amitriptyline 25 mg Tablet 50 MG PO (20:30)
--- NOTE | 2022-12-22 20:41 | ECG_ITS ---
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 Measurements Intervals [place] Rate: 72 P: 48 CT: 166 QRS: 37 QRSD: 82 T: 205 QT: 478 QTc: 526 Interpretive Statements SINUS RHYTHM ST DEVIATION AND MODERATE T-WAVE ABNORMALITY, CONSIDER ANTEROLATERAL ISCHEMIA [-0.1+ mV T-WAVE IN V3-V6] ST DEVIATION AND MODERATE T-WAVE ABNORMALITY, CONSIDER INFERIOR ISCHEMIA [-0.1+ mV T-WAVE IN II/aVF] Compared to ECG 12/22/2022 17:11:25 Sinus tachycardia no longer present T-wave abnormality still present Possible ischemia still present Electronically Signed On 12-22-2022 20:55:48 CDT by Lis Miles M.D. [id number]
[2022-12-22 21:11] LABS: Cortisol Random 65.32 ug/dL (2.47-19.5)
[2022-12-22 21:33] LABS: Troponin 5 6HR 45.23 ng/L (0-10)
[2022-12-22 21:36] LABS: Troponin 5 6HR Delta 2.23 ng/L (0-12)
[2022-12-22 21:54] LABS: Alanine Aminotransferase 17 U/L (0-33); Albumin Level 3.6 g/dL (3.5-5.2); Alkaline Phosphatase 63 U/L (35-105); Anion Gap 14.8 (5-19); Aspartate Amino Transferase 27 U/L (0-32); Blood Urea Nitrogen 13 mg/dL (8-23); Calcium 8.2 mg/dL (8.5-10.5); Carbon Dioxide 26 mmol/L (22-29); Chloride 102 mmol/L (98-107); Globulin 1.7 g/dL (1.3-4.6); Glomerular Filtration Rate 85.1 mL/min (90-130); Glucose 98 mg/dL (65-115); Osmolality Calculated 290 mOsm/kg (285-295); Sodium 140 mmol/L (136-145); Total Bilirubin 0.4 mg/dL (0.15-1.2); Total Protein 5.3 g/dL (6.6-8.7)
[2022-12-22 22:00] LABS: Potassium 2.8 mmol/L (3.5-5.1)
[2022-12-22] MEDS: lidocaine 1% 5 ML in potassium chloride premix 100 ML 52.5 ML IV (22:44)
[2022-12-23] MEDS: lidocaine 1% 5 ML in potassium chloride premix 100 ML 26.25 ML IV (00:51)
[2022-12-23] MEDS: TRAMadol 50 mg Tablet PO ×2 (00:58→10:17)
[2022-12-23 04:00] VITALS: BP 143/83; PULSE 84; RESP 16; TEMP 37.1; O2SAT 99
[2022-12-23] MEDS: sodium chlor 0.9% + KCl 20 mEq 20 MEQ/1,000 ML BAG 100 MEQ IV (05:12)
[2022-12-23 05:23] LABS: Alanine Aminotransferase 17 U/L (0-33); Albumin Level 3.5 g/dL (3.5-5.2); Alkaline Phosphatase 60 U/L (35-105); Anion Gap 17.1 (5-19); Aspartate Amino Transferase 28 U/L (0-32); Blood Urea Nitrogen 10 mg/dL (8-23); Calcium 8.6 mg/dL (8.5-10.5); Carbon Dioxide 24 mmol/L (22-29); Chloride 102 mmol/L (98-107); Globulin 1.7 g/dL (1.3-4.6); Glomerular Filtration Rate 101.6 mL/min (90-130); Glucose 81 mg/dL (65-115); Magnesium 1.7 mg/dL (1.7-2.3); Osmolality Calculated 286 mOsm/kg (285-295); Potassium 4.1 mmol/L (3.5-5.1); Sodium 139 mmol/L (136-145); Total Bilirubin 0.5 mg/dL (0.15-1.2); Total Protein 5.2 g/dL (6.6-8.7)
[2022-12-23 06:41] VITALS: PULSE 86
[2022-12-23 07:22] VITALS: BP 142/80; PULSE 78; RESP 16; TEMP 36.5; O2SAT 100
[2022-12-23] MEDS: potassium chloride ER 20 mEq Tablet 40 MEQ PO (10:01)
[2022-12-23] MEDS: pantoprazole DR 40 mg Tablet PO (10:01)
[2022-12-23] MEDS: lisinopril 2.5 mg Tablet PO (10:01)
[2022-12-23] MEDS: metoprolol succinate ER (24 HR) 25 mg Tablet PO (10:01)
[2022-12-23] MEDS: midodrine 5 mg TABLET PO (10:01)
[2022-12-23] MEDS: duloxetine 60 mg Capsule PO (10:01)
--- NOTE | 2022-12-23 10:40 | PC.CHAP ---
Pastoral Care Encounter/Spiritual Assessment Type of Contact [] Declined oncologist visit [] Patient/Family/Request visit [] Outpatient visit [] Follow-up visit [] Physician referral [] Code/Alert [x] Routine visit [] Staff referral [] Actively dying [] Patient sleeping [] Family support [] [] Out of room [] Palliative care [] [x] Receiving care in room [] Pre-surgical visit [] Trauma [] Long length of stay [] ICU visit [] Other: Relational/Emotional Strength [x] Patient feels connected with others/family/visitors/staff [] Distress [] Loneliness/isolation [] Abandonment Spirituality of Patient [x] Person of Kait [] Attends Quaker of their Kait [x] Believes in Prayer [] Reads Bible or Taoism materials [] There are Spiritual issues to be addressed Director Of Valuation Interventions [x] Prayer [x] Active listening [x] Non-anxious presence [x] Spiritual/emotional support [] Crisis/trauma care [x] Spiritual counseling [] Bereavement support [] Provided bereavement packet [] Provided Bible/devotional materials [] Provided toy/stuffed animal, coloring book to patient or family member [] Provided Communion [] Anointing/[place] [] Salvation [x] Completed spiritual assessment [] Other: Impact on Illness or Injury [] Angry [] Fearful [] Anxious [] Often cries [] Exhaustion [] Unable to work [] Unable to attend quaker [] Unable to walk/stand [] Unable to read [] Unable to drive [] Unable to eat/drink [] Unable to sleep [] Unable to be with family [] Patient intubated [] Other: Summary waiting doctors report feels good +1 famliy has a good attitude well go home Time spent with patient 10 mins
[2022-12-23 11:54] VITALS: BP 142/81; PULSE 84; RESP 19; TEMP 36.5; O2SAT 98
[2022-12-23 13:23] LABS: Magnesium 1.7 mg/dL (1.7-2.3)
[2022-12-23] MEDS: ondansetron 2 mg/ML SDV 2 mL 4 MG IVP (13:34)
--- NOTE | 2022-12-23 14:27 | P.DS_ITS ---
Discharge Providers Date of Admission: 12/22/22 17:26 Date of Discharge: December 23, 2022 Attending Provider at Admission: Tina Parikh MD Attending Provider at Discharge: Tina Parikh MD Primary Care Provider: Thanh Meyer MD Reason for Visit Reason for Visit: dizzy , n/v , sweating, low blood presure Hospital Course Hospital Course Preeti Odom is a 62 year old female with history of perforated bleeding peptic ulcer disease, requiring extensive surgery with en-block resection, partial gastrectomy, small bowel resection, and colectomy in 2010 resulting nutritional defieicencies , iron deficiency anemia, chronic back pain and migraines, recurrent episodes of nausea and vomiting which patient attributes to starting suboxone 3 months ago with pain management. She also has orthostatsic hypotension for which she is on daily fludrocortisone. No recent changes in medications except addition of suboxone few months ago. She presented to the hospital with persistent nausea and vomiting that was not controlled with taking Zofran at home. She had multiple electrolyte abnormalities including hypokalemia and hypomagnesemia. Her EKG was also showing new ST segment depression in the lateral leads raising concern for possible VT. However her troponins eventually returned downtrending from 40s to 30s range. She did not have any serial EKG evolution of her changes. She remained chest pain-free. Suspected that EKG changes may have been related to her electrolyte abnormalities. She did undergo echocardiogram which showed a normal LVEF, grade 1 diastolic dysfunction, no regional wall motion abnormalities further making ACS unlikely. She was admitted in view of her significantly low potassium and magnesium with EKG changes. This was supplemented with IV replacement. This morning her potassium has corrected to 4.1. Magnesium is additionally improved at 1.7. Her nausea is much improved today. She is able to tolerate a p.o. intake. She is being discharged in improved condition. She requests a prescription for tramadol as she has weaned herself off of Suboxone and does not plan to take Suboxone again. She also wishes for a referral to pain management locally as it has been difficult for her to go to [place] more recently. Referral to Dr. Nesbitt has been provided locally. Tramadol has been prescribed for the next 15 days while awaiting follow-up with pain management. Physical Exam Narrative: General: No acute distress, AO x3 HEENT: PERRLA, pupils bilaterally equal and reactive, pallors not present Chest: Normal vesicular breath sounds, no added sounds, equal good air entry bilaterally CVS: S1-S2 regular, no murmurs, no tachycardia, no gallops, no rubs Abdomen: Soft, nontender, no organomegaly, bowel sounds present Neuro: No focal deficits, no facial deformity, AO x3, power 5/5 in all limbs Extremities: No edema clubbing or cyanosis, Discharge Data Studies Completed and Pending Completed Studies During Hospitalization Category Date Time Status XR chest 1V portable [id number] Urgent Exams 12/22/22 15:31 Completed CV. echo complete* [id number] Routine Ultrasound 12/22/22 18:16 Completed Pending at discharge Category Date Time Status Urine Culture Stat Lab 12/22/22 17:35 Received Laboratory Results WBC 13.04 10^3/uL (3.29-11.43) H 12/22/22 14:20 RBC 5.00 10^6/uL (3.85-5.65) 12/22/22 14:20 Hgb 15.10 g/dL (11.27-16.99) 12/22/22 14:20 Hct 44.1 % (36-47) 12/22/22 14:20 MCV 88.2 fl (85-98) 12/22/22 14:20 MCH 30.2 pg (27-33) 12/22/22 14:20 MCHC 34.2 g/dL (30-55) 12/22/22 14:20 RDW 14.0 % (12.1-15.1) 12/22/22 14:20 Plt Count 367 10^3/cmm (157-399) 12/22/22 14:20 MPV 10.1 fL (7.4-10.4) 12/22/22 14:20 Neut % (Auto) 87.9 % 12/22/22 14:20 Lymph % (Auto) 4.5 % 12/22/22 14:20 [place] % (Auto) 7.1 % 12/22/22 14:20 Eos % (Auto) 0.0 % 12/22/22 14:20 Baso % (Auto) 0.2 % 12/22/22 14:20 Neut # (Auto) 11.45 10^3/uL (1.8-7.7) H 12/22/22 14:20 Lymph # (Auto) 0.6 10^3/uL (0.8-4.8) L 12/22/22 14:20 [place] # (Auto) 0.9 10^3/uL (0.2-0.9) 12/22/22 14:20 Eos # (Auto) 0.0 10^3/uL (0.0-0.8) 12/22/22 14:20 Baso # (Auto) 0.0 10^3/uL (0.0-0.1) 12/22/22 14:20 Nucleated RBC % (auto) 0 % 12/22/22 14:20 Nucleated RBCs # 0.0 /100WBC 12/22/22 14:20 Specimen Type Arterial 12/22/22 15:38 Sample Site Brachial, left 12/22/22 15:38 ABG pH 7.42 (7.35-7.45) 12/22/22 15:38 ABG pCO2 47.0 mmHg (35-45) H 12/22/22 15:38 ABG pO2 79.4 mmHg (80.0-100.0) L 12/22/22 15:38 ABG HCO3 30.7 mmol/L (22-26) H 12/22/22 15:38 ABG O2 Saturation 95.3 12/22/22 15:38 ABG Base Excess 5.3 mmol/L (-2.0-2.0) H 12/22/22 15:38 [place] Test Pos 12/22/22 15:38 A-a O2 Gradient 1.7 mmHg (5-10) L 12/22/22 15:38 Hematocrit 40.6 % (37-47) 12/22/22 15:38 Hgb O2 Saturation 93.9 % (95-100) L 12/22/22 15:38 Carboxyhemoglobin 0.8 %THgb (0.4-20.1) 12/22/22 15:38 Methemoglobin 0.6 % (0.4-1.5) 12/22/22 15:38 Total Hemoglobin 13.3 g/dL (12-16) 12/22/22 15:38 Sodium 141.0 mmol/L (131-143) 12/22/22 15:38 Potassium 1.9 mmol/L (3.5-5.0) L 12/22/22 15:38 Glucose 156.0 mg/dL (70-115) H 12/22/22 15:38 Ionized Calcium 1.2 mmol/L (1.1-1.4) 12/22/22 15:38 O2 Delivery Device Room air 12/22/22 15:38 FiO2 21.0 % 12/22/22 15:38 Edge Inker Uppers ID Cak 12/22/22 15:38 Sodium 139 mmol/L (136-145) 12/23/22 04:33 Potassium 4.1 mmol/L (3.5-5.1) 12/23/22 04:33 Chloride 102 mmol/L (98-107) 12/23/22 04:33 Carbon Dioxide 24 mmol/L (22-29) 12/23/22 04:33 Anion Gap 17.1 (5-19) 12/23/22 04:33 BUN 10 mg/dL (8-23) 12/23/22 04:33 Creatinine 0.6 mg/dL (0.5-0.9) 12/23/22 04:33 GFR Calculation 101.6 mL/min (90-130) 12/23/22 04:33 Glucose 81 mg/dL (65-115) 12/23/22 04:33 Calculated Osmolality 286 mOsm/kg (285-295) 12/23/22 04:33 Calcium 8.6 mg/dL (8.5-10.5) 12/23/22 04:33 Magnesium 1.7 mg/dL (1.7-2.3) 12/23/22 04:33 Magnesium 1.7 mg/dL (1.7-2.3) 12/23/22 04:33 Total Bilirubin 0.5 mg/dL (0.15-1.2) 12/23/22 04:33 AST 28 U/L (0-32) 12/23/22 04:33 ALT 17 U/L (0-33) 12/23/22 04:33 Alkaline Phosphatase 60 U/L (35-105) 12/23/22 04:33 Creatine Kinase 171 U/L (26-192) 12/22/22 14:20 Troponin T Baseline 43 ng/L (0-10) H 12/22/22 14:20 Troponin T 120 Minute 37.07 ng/L (0-10) H 12/22/22 16:21 Delta Troponin T -5.93 ABS# (0-10) L 12/22/22 16:21 Troponin T Hi Sens 6Hr 45.23 ng/L (0-10) H 12/22/22 21:00 Troponin T Hi Sens 6Hr Delta 2.23 ng/L (0-12) 12/22/22 21:00 Total Protein 5.2 g/dL (6.6-8.7) L 12/23/22 04:33 Albumin 3.5 g/dL (3.5-5.2) 12/23/22 04:33 Globulin 1.7 g/dL (1.3-4.6) 12/23/22 04:33 Lipase 20 U/L (13-60) 12/22/22 14:20 Random Cortisol 65.32 ug/dL (2.47-19.5) H 12/22/22 14:20 Urine Color Yellow (Yellow) 12/22/22 17:35 Urine Appearance Cloudy (CLEAR) A 12/22/22 17:35 Urine pH 8 (5-7) H 12/22/22 17:35 Ur Specific [place] 1.010 (1.005-1.030) 12/22/22 17:35 Urine Protein Neg (Negative) 12/22/22 17:35 Urine Glucose (UA) Norm (Normal) 12/22/22 17:35 Urine Ketones Negative (Negative) 12/22/22 17:35 Urine Blood Neg (Negative) 12/22/22 17:35 Urine Nitrate Negative (Negative) 12/22/22 17:35 Urine Bilirubin Neg (Negative) 12/22/22 17:35 Prot Sulfosalicylic Acd Negative (Negative) 12/22/22 17:35 Urine Urobilinogen Norm mg/dL (Negative) 12/22/22 17:35 Ur Leukocyte Esterase 1+ (Negative) H 12/22/22 17:35 Urine RBC 0-4 /hpf (0-2) H 12/22/22 17:35 Urine WBC 5-10 /hpf (0-5) H 12/22/22 17:35 Ur Squamous Epith Cells 0-4 /hpf (0-5) H 12/22/22 17:35 Amorphous Sediment Not Reportable 12/22/22 17:35 Urine Bacteria 4+ /hpf (NONE) H 12/22/22 17:35 Serum Ketones Negative (Negative) 12/22/22 14:20 Vitals Last Vital Signs Temp 97.7 F 12/23/22 11:54 Pulse 84 12/23/22 11:54 Resp 19 H 12/23/22 11:54 BP 142/81 12/23/22 11:54 Pulse Ox 98 12/23/22 11:54 O2 Del Method Room Air 12/23/22 11:54 Discharge Plan Discharge Patient Disposition: Home Condition: Stable Prescriptions: New tramadol 50 mg Tablet 50 mg PO TID PRN (Reason: Moderate Pain) 15 Days Qty: 45 0RF Continued montelukast [Singulair] 10 mg tablet 10 mg PO DAILY@20 cdbhkrsu-hkm-lalud-chp277-hjko [Vehgnn-Plziu-BFC (with antiox)] 500-500-66.7 mg tablet 1 tab PO DAILY@20 loratadine [Claritin] 10 mg tablet 10 mg PO DAILY@08 PRN (Reason: Allergy Symptoms) amitriptyline 50 mg tablet 50 mg PO .HS Qty: 30 5RF Hold Instructions: see pcp duloxetine [Cymbalta] 60 mg capsule,delayed release(DR/EC) 60 mg PO DAILY Qty: 60 5RF mupirocin 2 % ointment 1 applic topical BID PRN (Reason: Rash) Rx Instructions: apply to affected area once daily pantoprazole 40 mg tablet,delayed release (DR/EC) 40 mg PO DAILY bupropion HCl [Wellbutrin SR] 200 mg tablet sustained-release 12 hr 200 mg PO BID PRN (Reason: Anxiety) magnesium L-lactate 84 mg tablet extended release 84 mg PO BID Qty: 180 1RF midodrine 5 mg tablet 5 mg PO TID Qty: 270 1RF Rx Instructions: do not give last dose of day after 6PM or within 4 hrs of bedtime tizanidine 4 mg Tablet 4 mg PO Q8H PRN (Reason: Muscle Spasm) ondansetron HCl 4 mg tablet 4 mg PO Q4H PRN (Reason: Nausea And Vomiting) meloxicam 15 mg tablet 15 mg PO DAILY Banophen 25 mg capsule 50 mg PO DAILY metoprolol succinate 25 mg tablet extended release 24 hr 25 mg PO DAILY lisinopril 2.5 mg tablet 2.5 mg PO DAILY hydrochlorothiazide 12.5 mg tablet 12.5 - 15 mg PO DAILY potassium chloride 20 mEq tablet extended release 40 meq PO BID Discontinued buprenorphine-naloxone 8-2 mg tablet, sublingual 1 tab sublingual DAILY Discharge Orders: Discharge Order (Routine); Ordered 12/23/22 Ordered By: Tina Parikh Referrals: Thanh Meyer MD [Primary Care Provider] - 1 week Discharge Diet: Usual diet Discharge Activity: Resume usual activity Patient Instructions: Opioid Safety Discharge Attestations Time Spent in Discharge Care*: greater than 30 min Status at Discharge: Cognitive status at discharge: cognitively intact , Behavioral status at discharge: cooperative , Quality Metrics Clinical Quality Measures [ No reported AMI, CVA or VTE this stay] Coding Level of Care Code Acute Code for Chg Fwd Diagnoses
[2022-12-23 16:00] VITALS: BP 148/94; PULSE 80; RESP 20; TEMP 36.8; O2SAT 99
[2022-12-23 17:44] VITALS: BP 148/94; PULSE 80; RESP 20; TEMP 36.8; O2SAT 99
== END 2022-12-23 16:15 | disposition home or self-care (01) ==
LOC: ER 16:52 → MEDSURG 17:27
PROVIDERS: Admitting Provider Student in an Organized Health Care Education/Training Program; Emergency Provider Physician Assistant; PCP Family Medicine; Visit Provider Student in an Organized Health Care Education/Training Program
DX: E87.6 Hypokalemia (principal); E83.42 Hypomagnesemia; E86.0 Dehydration; R77.8 Other specified abnormalities of plasma proteins; M81.0 Age-related osteoporosis without current pathological fracture; Z87.11 Personal history of peptic ulcer disease; I95.1 Orthostatic hypotension; R94.31 Abnormal electrocardiogram [ECG] [EKG]
CPT/HCPCS: 36415; 36591; 36592; 36600; 71045; 80051; 80053; 81001; 82009; 82330; 82533; 82550; 82805; 83690; 83735; 84484; 85025; 87077; 87086; 87186; 93005; 93306; 96365; 96366; 96367; 96375; 96376; 99285; G0378; J2405; J2765; J3475; J3480; J7030

== ENCOUNTER → 2022-12-29 13:16 | Outpatient (BNVA) | payer MEDICAID, SELFPAY | PROVIDERS: PCP Family Medicine; Visit Provider Nurse Practitioner Family | DX: E87.6 Hypokalemia (principal) | CPT/HCPCS: 99214 ==

== ENCOUNTER 2023-02-17 12:37 | Oncology outpatient (recurring) (ONCR) | payer MEDICAID, SELFPAY ==
[2023-02-17 13:56] LABS: Basophils % 0.4 %; Eosinophils # 0.1 10^3/uL (0.0-0.8); Hematocrit 29.5 % (36-47); Lymphocytes # 0.7 10^3/uL (0.8-4.8); Lymphocytes % 16.5 %; Mean Corpuscular HGB Conc 32.9 g/dL (30-55); Mean Corpuscular Hemoglobin 29.8 pg (27-33); Mean Corpuscular Volume 90.8 fl (85-98); Mean Platelet Volume 9.8 fL (7.4-10.4); Monocytes # 0.5 10^3/uL (0.2-0.9); Monocytes % 10.9 %; Neutrophils # 3.13 10^3/uL (1.8-7.7); Nucleated Red Blood Cells % 0 %; Platelet Count 261 10^3/cmm (157-399); Red Blood Count 3.25 10^6/uL (3.85-5.65); Red Cell Distribution Width 13.7 % (12.1-15.1); White Blood Count 4.48 10^3/uL (3.29-11.43)
[2023-02-17 14:04] LABS: Alanine Aminotransferase 10 U/L (0-33); Albumin Level 3.6 g/dL (3.5-5.2); Alkaline Phosphatase 57 U/L (35-105); Anion Gap 16.1 (5-19); Aspartate Amino Transferase 16 U/L (0-32); Blood Urea Nitrogen 12 mg/dL (8-23); Calcium 8.4 mg/dL (8.5-10.5); Carbon Dioxide 24 mmol/L (22-29); Chloride 100 mmol/L (98-107); Globulin 1.7 g/dL (1.3-4.6); Glomerular Filtration Rate 56.4 mL/min (90-130); Glucose 126 mg/dL (65-115); Magnesium 1.5 mg/dL (1.7-2.3); Osmolality Calculated 285 mOsm/kg (285-295); Potassium 3.1 mmol/L (3.5-5.1); Sodium 137 mmol/L (136-145); Total Bilirubin 0.2 mg/dL (0.15-1.2); Total Protein 5.3 g/dL (6.6-8.7)
[2023-02-17 14:30] LABS: Ferritin 174 ng/mL (15-150); Iron 97 ug/dL (37-145); Percent Saturation 62.1 % (20-50); Total Iron Binding Capacity 156 mcg/dl; Unsaturated Iron Binding 59 ug/dL (112-347)
== END 2023-03-01 23:59 | disposition home or self-care (01) ==
PROVIDERS: Nurse Practitioner Family; PCP Family Medicine; Visit Provider Internal Medicine Medical Oncology
DX: D50.8 Other iron deficiency anemias (principal); E83.42 Hypomagnesemia; Z95.828 Presence of other vascular implants and grafts
CPT/HCPCS: 36591; 80053; 82728; 83540; 83550; 83735; 85025; J1642

== ENCOUNTER 2023-03-23 12:48 | Oncology outpatient (recurring) (ONCR) | payer MEDICAID, SELFPAY ==
[2023-03-23 12:59] VITALS: BP 89/62; PULSE 61; RESP 16; TEMP 36.7
[2023-03-23 13:22] LABS: Basophils % 0.6 %; Eosinophils # 0.2 10^3/uL (0.0-0.8); Eosinophils % 3.8 %; Hematocrit 29.3 % (36-47); Lymphocytes # 1.1 10^3/uL (0.8-4.8); Lymphocytes % 21.1 %; Mean Corpuscular HGB Conc 31.7 g/dL (30-55); Mean Corpuscular Hemoglobin 29.2 pg (27-33); Mean Corpuscular Volume 92.1 fl (85-98); Mean Platelet Volume 9.6 fL (7.4-10.4); Monocytes # 0.5 10^3/uL (0.2-0.9); Monocytes % 10.2 %; Neutrophils # 3.39 10^3/uL (1.8-7.7); Neutrophils % 63.9 %; Nucleated Red Blood Cells % 0 %; Platelet Count 258 10^3/cmm (157-399); Red Blood Count 3.18 10^6/uL (3.85-5.65); Red Cell Distribution Width 13.9 % (12.1-15.1)
[2023-03-23 13:36] LABS: Alanine Aminotransferase 11 U/L (0-33); Albumin Level 3.5 g/dL (3.5-5.2); Alkaline Phosphatase 61 U/L (35-105); Anion Gap 15.2 (5-19); Aspartate Amino Transferase 17 U/L (0-32); Blood Urea Nitrogen 16 mg/dL (8-23); Calcium 8.9 mg/dL (8.5-10.5); Carbon Dioxide 21 mmol/L (22-29); Chloride 106 mmol/L (98-107); Ferritin 153 ng/mL (15-150); Globulin 1.8 g/dL (1.3-4.6); Glomerular Filtration Rate 63.4 mL/min (90-130); Glucose 106 mg/dL (65-115); Iron 90 ug/dL (37-145); Magnesium 1.8 mg/dL (1.7-2.3); Osmolality Calculated 288 mOsm/kg (285-295); Percent Saturation 52.3 % (20-50); Potassium 4.2 mmol/L (3.5-5.1); Sodium 138 mmol/L (136-145); Total Bilirubin 0.2 mg/dL (0.15-1.2); Total Iron Binding Capacity 172 mcg/dl; Total Protein 5.3 g/dL (6.6-8.7); Unsaturated Iron Binding 82 ug/dL (112-347)
[2023-03-23 15:05] LABS: Erythrocyte Sedimentation Rate 7 mm/hr (0-15)
[2023-03-23 15:16] LABS: Vitamin B12 635 pg/mL (232-1245)
== END 2023-03-31 23:59 | disposition home or self-care (01) ==
PROVIDERS: PCP Family Medicine; Visit Provider Internal Medicine Medical Oncology
DX: D50.8 Other iron deficiency anemias (principal); E83.42 Hypomagnesemia; Z95.828 Presence of other vascular implants and grafts; Z79.899 Other long term (current) drug therapy
CPT/HCPCS: 36591; 80053; 82607; 82728; 83540; 83550; 83735; 84443; 85025; 85651; 86140; 99204; 99214

== ENCOUNTER 2023-03-28 11:05 | Day surgery (SDC) | payer MEDICAID, SELFPAY ==
[2023-03-28] VITALS (14 sets, daily range): BP systolic 92–129; BP diastolic 53–77; PULSE 57–82; RESP 16–18; TEMP 36.2–36.6; O2SAT 94–98; BMI 18.5
--- NOTE | 2023-03-28 12:10 | P.HPUD_ITS ---
Surgery/Procedure H&P Update DATE OF PROCEDURE: March 28, 2023 DATE H&P PERFORMED: 03/23/23 H&P UPDATE INFORMATION: I have reviewed H&P completed within last 30 days, I have examined patient prior to procedure and No changes to prior documentation PLANNED PROCEDURE: Operation Date: 03/28/23 12:45 Proposed Procedures p Laparoscopic Ventral Hernia Repair Laparoscopic Incisional Hernia Repair(Not A pplicable) - Eleazar Zhu, DO
--- NOTE | 2023-03-28 12:17 | P.ANESASSM_ITS ---
Pre-Anesthetic Assessment Height/Weight: Height 1.52 m Weight 43 kg Temp Pulse Resp BP Pulse Ox O2 Del Method 97.7 F 57 L 16 129/53 98 Room Air 03/28/23 11:37 03/28/23 11:37 03/28/23 11:37 03/28/23 11:37 03/28/23 11:37 03/28/23 11:40 Operation Date: 03/28/23 12:45 Proposed Procedures p Laparoscopic Ventral Hernia Repair Laparoscopic Incisional Hernia Repair(Not Applicable) - Eleazar Zhu DO Familial anesthetic complications: None Was Beta Ольга taken within 24 hours: N/A Was Clonidine taken within 24 hours: N/A Last intake: Intake Last Liquid Date 03/27/23 Last Liquid Time 20:00 Last Solid Date 03/27/23 Last Solid Time 20:00 Social No alcohol and No tobacco Exam alert, oriented x 3, clear to auscultation bilaterally and regular rate & rhythm Airway Mallampati: Class II Dentition: false CV/HEM Anemia and Hypertension Mod avr and mild MVR GI Gastroesophageal Reflux Disease Musc/skel Fibromyalgia and Lower Back Pain Neuropsych hx etoh Anesthetic Plan ASA status: 3 Anesthesia: General Risk of > 500 ml blood loss (7ml/kg in children): No Medications/Allergies Home Medications Medication Instructions Recorded Confirmed Last Taken Type montelukast 10 mg tablet 10 mg PO DAILY@07/19/19 03/28/23 03/20/21 History (Singulair) tizanidine 4 mg tablet 4 mg PO Q8H PRN Muscle Spasm 10/15/19 03/28/23 03/27/23 History ubpdxtmrtxm-gey-fdmvnerlv-hrb 1 tab PO DAILY@10/19/19 03/25/23 03/24/23 History 149-hyalur 500 mg-500 mg-66.7 mg tablet (Eqzlhfbqrth-Pwuhdhfqjmk-TSJ (with antiox)) ondansetron HCl 4 mg tablet 4 mg PO Q4H PRN Nausea And Vomiting 05/13/20 03/25/23 12/22/22 History amitriptyline 50 mg tablet 50 mg PO .HS #30 tabs 06/23/21 03/25/23 03/27/23 Rx duloxetine 60 mg capsule,delayed 60 mg PO DAILY #60 caps 06/23/21 03/25/23 03/27/23 Rx release (Cymbalta) mupirocin 2 % topical ointment 1 applic topical BID PRN Rash 02/15/22 03/28/23 03/26/23 History pantoprazole 40 mg tablet,delayed 40 mg PO DAILY 02/15/22 03/25/23 03/27/23 History release loratadine 10 mg tablet (Claritin) 10 mg PO DAILY@08 PRN Allergy 06/23/22 03/28/23 03/27/23 History Symptoms bupropion HCl 200 mg tablet,12 hr 200 mg PO BID PRN Anxiety 10/27/22 03/28/23 03/27/23 History sustained-release (Wellbutrin SR) magnesium L-lactate 84 mg 84 mg PO BID #180 tabs 11/12/22 03/25/23 03/27/23 Rx tablet,extended release midodrine 5 mg tablet 5 mg PO TID #270 tabs 11/25/22 03/25/23 03/27/23 Rx diphenhydramine HCl 25 mg capsule 50 mg PO DAILY 12/22/22 03/25/23 03/25/23 History (Banophen) lisinopril 2.5 mg tablet 2.5 mg PO DAILY 12/22/22 03/25/23 03/27/23 History meloxicam 15 mg tablet 15 mg PO DAILY 12/22/22 03/25/23 03/27/23 History metoprolol succinate 25 mg 25 mg PO DAILY 12/22/22 03/25/23 03/28/23 07:00 History tablet,extended release 24 hr potassium chloride 20 mEq 40 meq PO BID 12/22/22 03/25/23 03/27/23 History tablet,extended release buprenorphine 8 mg-naloxone 2 mg 1 film sublingual DAILY PRN Pain 12/29/22 03/28/23 03/27/23 History sublingual film (Suboxone) spironolactone 25 mg tablet 12.5 mg PO DAILY #90 tabs 12/29/22 03/25/23 03/27/23 Rx Allergies Allergy/AdvReac Type Severity Reaction Status Date / Time No Known Allergies Allergy Verified 03/25/23 09:32 [facility] Anesthesia Medical History (Updated 03/27/23 @ 11:49 by Lauri Medina MD) Chronic back pain Constipation Cystitis cystica Depression Diverticulosis Fibromyalgia Hypokalemia Iron deficiency anemia Major depressive disorder, recurrent, mild Osteoporosis Peptic ulcer disease Undifferentiated somatoform disorder Surgical History (Updated 03/27/23 @ 11:46 by Lauri Medina MD) H/O bilateral breast reduction surgery H/O colonoscopy (10/14/20) Diverticulosis H/O rhinoplasty Nasal fracture H/O right knee surgery H/O: hysterectomy For fibroid and endometriosis / BSO History of appendectomy History of bone marrow biopsy History of partial gastrectomy Secondary to peptic ulcer disease, perforated ulcer / partial transverse colectomy with reanastomosis ([place], [place]) History of tonsillectomy Hx of cholecystectomy Port-A-Cath in place Placed for transfusions for chronic anemia S/P LASIK surgery of both eyes Status post extracorporeal shock wave therapy URETERAL STENT PLACEMENT Family History Father , IN HIS 50'S No problems noted. Mother , AT AGE 78 Cancer OVARIAN Myocardial infarction Stroke Sister CAD (coronary artery disease) Other Hypertension Psychiatric illness Social History Smoking and tobacco/nicotine status: former use of tobacco/nicotine Quit status (tobacco/nicotine): has quit using Year quit tobacco: 1980 Former quit date comment: smoked 6 years total Alcohol intake: current Alcohol intake frequency: holidays/special occasions only Substance/Drug Use: never Adopted: No Caregiver/support person: No Housing: House Marital status: Current occupational status: disabled Data Anesthesia Cardiac Studies: 2 Echocardiogram 12/22/22 Cardiac Event Monitor 06/30/22
[2023-03-28] MEDS: sodium chloride 0.9% 1,000 ML 30 ML IV (12:34)
[2023-03-28] MEDS: midazolam 1 mg/mL INJ 2 mL IVP (12:37)
[2023-03-28] MEDS: fentaNYL 50 mcg/mL INJ 2mL IVP ×2 (13:38→15:20)
[2023-03-28] MEDS: ceFAZolin 2,000 MG in sodium chloride 0.9% (plus) 50 ML 100 MG IV (13:54)
[2023-03-28] MEDS: lidocaine-epi 2% 20 mL INJ INJECTION (14:16)
--- NOTE | 2023-03-28 14:52 | PM.OP ---
Operative Report Date of procedure: March 28, 2023 Pre-op diagnosis: Incisional hernia Post-op diagnosis: Incisional hernias x 2 Procedure done: Laparoscopic repair of incisional hernias x 2 with mesh Implants: 6 inch round Ventralight mesh Specimens removed/disposition: Hernia sac Surgeon: Eleazar Zhu DO Anesthesia: General and Local Estimated blood loss (mL): 10 Complications: None apparent Brief History: This very pleasant 63-year-old female who presented my office with an incisional hernia. Laparoscopic repair with mesh was indicated. The risk and benefits were explained and documented. Procedure: Patient was wheeled into the operative room and placed on the OR table in a supine position. Abdomen was inspected prepped and draped in usual sterile fashion. Time-out was performed and all present were in agreement. A 15 blade scalp was used to make a 5 millimeter incision left upper quadrant. A Veress needle was placed into the incision and intra-abdominal insufflation was brought to 15 millimeters of mercury. A 12 millimeter trocar was placed into the left lower quadrant. There were extensive adhesions throughout the abdomen which were taken down bluntly and with electrocautery. After this, it was evident that there were 2 incisional hernias. 1 measuring 3 cm in greatest diameter and 1 measuring 3.5 cm in greatest diameter. The energy device was then used to cut out the hernia sac. A 6 inch round ventrallight mesh was placed into the abdomen and brought up through the umbilicus using an the Dhiraj-Toni. The mesh was then tacked in place in a double crown fashion. The skeleton of the mesh was removed via the left lower quadrant. The hernia sac was then removed from the abdomen via the left lower quadrant. The left lower quadrant port site was closed with an 0 Vicryl suture in a Dhiraj-Toni in a vzxmww-go-mlypy fashion. Incisions were closed with 4 O Vicryl in a subcuticular interrupted fashion. Skin glue was applied. Patient tolerated the procedure well.
[2023-03-28] MEDS: ondansetron 2 mg/ML SDV 2 mL 4 MG IVP ×2 (15:23→16:45)
[2023-03-28] MEDS: HYDROcodone-acetaminophen 10-325 mg Tablet 1 TAB PO (16:45)
--- NOTE | 2023-03-28 16:52 | SUR.PHASEII ---
medicated for nausea and pain.
--- NOTE | 2023-03-28 17:35 | ANE.PACU2 ---
Inpatient post-anesthesia follow up: Airway intact: Yes Vital signs: Temperature 97.9 F Pulse Rate 82 Respiratory Rate 16 Blood Pressure 92/64 Pulse Oximetry 97 Oxygen Delivery Me thod Room Air Oxygen Flow Rate 6 Fraction of Inspir ed Oxygen Hydration adequate: Yes Nausea and vomiting: No Pain level: 1 Mental status: Baseline
== END 2023-03-28 17:35 | disposition home or self-care (01) ==
PROVIDERS: PCP Family Medicine; Visit Provider Surgery
PROC: 0WQF4ZZ Repair Abdominal Wall, Percutaneous Endoscopic Approach (ICD-10-PCS; CPT 49593; principal; 2023-03-28 12:15)
DX: K43.2 Incisional hernia without obstruction or gangrene (principal); I10 Essential (primary) hypertension; M79.7 Fibromyalgia; Z87.11 Personal history of peptic ulcer disease; Z87.891 Personal history of nicotine dependence
CPT/HCPCS: 49593; 88302; J0690; J1100; J2250; J2405; J2704; J2710; J3010; J3490; J7030

== ENCOUNTER → 2023-04-12 09:03 | Outpatient (BNVA) | payer MEDICAID, SELFPAY | PROVIDERS: PCP Family Medicine; Visit Provider Surgery | DX: K43.2 Incisional hernia without obstruction or gangrene (principal); K21.9 Gastro-esophageal reflux disease without esophagitis; R10.13 Epigastric pain; Z12.11 Encounter for screening for malignant neoplasm of colon; Z98.890 Other specified postprocedural states | CPT/HCPCS: 99024 ==

== ENCOUNTER 2023-05-26 11:00 | Oncology outpatient (recurring) (ONCR) | payer MEDICAID, SELFPAY ==
[2023-05-11 13:40] VITALS: BP 141/89; PULSE 83
[2023-05-11 14:05] LABS: Basophils % 0.5 %; Eosinophils # 0.2 10^3/uL (0.0-0.8); Eosinophils % 2.5 %; Hematocrit 27.9 % (36-47); Lymphocytes % 13.1 %; Mean Corpuscular HGB Conc 30.5 g/dL (30-55); Mean Corpuscular Hemoglobin 28.6 pg (27-33); Mean Corpuscular Volume 93.9 fl (85-98); Mean Platelet Volume 9.3 fL (7.4-10.4); Monocytes # 0.7 10^3/uL (0.2-0.9); Monocytes % 8.7 %; Neutrophils # 5.67 10^3/uL (1.8-7.7); Neutrophils % 74.8 %; Nucleated Red Blood Cells % 0 %; Platelet Count 325 10^3/cmm (157-399); Red Blood Count 2.97 10^6/uL (3.85-5.65); Red Cell Distribution Width 14.1 % (12.1-15.1); White Blood Count 7.58 10^3/uL (3.29-11.43)
[2023-05-11 14:06] LABS: Reticulocyte % 1.9 % (0.5-2.0)
[2023-05-11 14:14] LABS: LAB Peripheral Smear Sent for Review
[2023-05-11 14:22] LABS: Alanine Aminotransferase 10 U/L (0-33); Albumin Level 3.2 g/dL (3.5-5.2); Alkaline Phosphatase 70 U/L (35-105); Anion Gap 15.3 (5-19); Aspartate Amino Transferase 18 U/L (0-32); Blood Urea Nitrogen 12 mg/dL (8-23); Calcium 8.2 mg/dL (8.5-10.5); Carbon Dioxide 23 mmol/L (22-29); Chloride 108 mmol/L (98-107); Globulin 1.9 g/dL (1.3-4.6); Glucose 99 mg/dL (65-115); Lactate Dehydrogenase 232 U/L (135-214); Osmolality Calculated 296 mOsm/kg (285-295); Potassium 3.3 mmol/L (3.5-5.1); Sodium 143 mmol/L (136-145); Total Bilirubin 0.2 mg/dL (0.15-1.2); Total Protein 5.1 g/dL (6.6-8.7)
[2023-05-11 14:45] LABS: Folate Level 5.1 ng/mL (4.8-37.3)
[2023-05-11 15:07] LABS: Erythrocyte Sedimentation Rate < 1 mm/hr (0-15)
[2023-05-11 15:19] LABS: Ferritin 60 ng/mL (15-150); Iron 42 ug/dL (37-145); Percent Saturation 18.6 % (20-50); Total Iron Binding Capacity 225 mcg/dl; Unsaturated Iron Binding 183 ug/dL (112-347)
[2023-05-12 12:09] LABS: PROTEIN, TOTAL 4.7 g/dL (6.1-8.1)
[2023-05-12 15:03] LABS: KAPPA LIGHT CHAIN, FREE, SERUM 12.3 mg/L (3.3-19.4); KAPPA/LAMBDA LIGHT CHAINS FREE 1.18 (0.26-1.65); LAMBDA LIGHT CHAIN, FREE, SERU 10.4 mg/L (5.7-26.3)
[2023-05-13 10:45] LABS: ABNORMAL PROTEIN BAND 1 0.1 g/dL (NONE DETECTED); ALBUMIN 3.2 g/dL (3.8-4.8); ALPHA 1 GLOBULIN 0.4 g/dL (0.2-0.3); ALPHA 2 GLOBULIN 0.5 g/dL (0.5-0.9); BETA 1 GLOBULIN 0.3 g/dL (0.4-0.6); BETA 2 GLOBULIN 0.2 g/dL (0.2-0.5); GAMMA GLOBULIN 0.3 g/dL (0.8-1.7)
[2023-05-26 12:00] VITALS: BP 147/72; TEMP 36.9; O2SAT 95
[2023-05-26] MEDS: sodium chloride 0.9% 500 ML 75 ML IV (12:28)
[2023-05-26] MEDS: iron dextran 25 MG in SYRINGE 1 EACH 30 MG IVP (12:28)
[2023-05-26] MEDS: acetaminophen 325 mg Tablet 650 MG PO (12:37)
[2023-05-26] MEDS: diphenhydrAMINE 50 mg/mL SDV 1mL 25 MG IVP (12:37)
[2023-05-26] MEDS: iron dextran 1,000 MG in sodium chloride 0.9% 1,000 ML 250.75 MG IV (13:44)
[2023-05-26 17:23] VITALS: BP 119/53; PULSE 57; TEMP 36.6; O2SAT 96
== END 2023-06-01 23:59 | disposition home or self-care (01) ==
PROVIDERS: PCP Family Medicine; Visit Provider Internal Medicine Medical Oncology
DX: Z53.9 Procedure and treatment not carried out, unspecified reason (principal); D64.9 Anemia, unspecified
CPT/HCPCS: 36591; 80053; 82728; 82746; 83010; 83540; 83550; 83615; 83883; 84155; 84165; 85025; 85045; 85651; 86334; 96365; 96366; 96375; 99214; J1200; J1642; J1750; J7030; J7040

== ENCOUNTER 2023-06-01 13:40 | Outpatient (CLI) | payer MEDICAID, SELFPAY ==
--- NOTE | 2023-06-01 13:49 | MR_ITS ---
WS: [id number] MRI LUMBAR SPINE NONCONTRAST TECHNIQUE: Sagittal T1, T2 and STIR imaging. Axial T1 and T2 imaging. CLINICAL INFORMATION: SPONDYLOSIS/INTERVERTEBRAL DISC DISORDERS W/RADICULOPATHY COMPARISON: None. FINDINGS: Mild lumbar curve. No acute compression. No high-grade central canal stenosis. Mild to moderate central canal stenosis in the cervical spine on senior manufacturing engineer imaging at C3-C6. Small central protrusion T12-L1 with slight effacement of the ventral thecal sac. L1-L2: Mild facet arthropathy. Spinal canal and foramen are patent. L2-L3: No significant disc bulging. Mild facet arthropathy. Spinal canal and foramen are patent. L3-L4: RIGHT subarticular disc protrusion with impingement traversing RIGHT L4 nerve root in the suba rticular recess. Mild central canal stenosis. Moderate RIGHT foraminal narrowing. LEFT foramen is pat ent. Mild facet arthropathy. L4-L5: Mild disc osteophyte complex with endplate ridging. Mild RIGHT greater than LEFT bony foramina l narrowing. Mild facet arthropathy. Spinal canal is patent. L5-S1: LEFT paracentral protrusion impinges the traversing LEFT S1 nerve root in the subarticular rec ess. Foramen are patent. Moderate facet arthropathy. Visualized pelvic bony structures: Normal. Paravertebral soft tissues: Normal. LEFT renal cyst measuring 1.1 cm. IMPRESSION: 1. Mild lumbar curve. No acute compression. 2. Prominent RIGHT subarticular disc protrusion L3-4 impinges the traversing RIGHT L4 nerve root in the subarticular recess with moderate RIGHT foraminal narrowing and mild central canal stenosis. 3. LEFT paracentral protrusion impinges the traversing LEFT S1 nerve root in the subarticular recess . Foramen are patent. Moderate facet arthropathy.
== END 2023-06-01 13:41 | disposition home or self-care (01) ==
LOC: RAD 13:40
PROVIDERS: PCP Family Medicine; Visit Provider Family Medicine
DX: M51.17 Intervertebral disc disorders with radiculopathy, lumbosacral region (principal); M47.897 Other spondylosis, lumbosacral region; M25.78 Osteophyte, vertebrae; M47.16 Other spondylosis with myelopathy, lumbar region; M47.26 Other spondylosis with radiculopathy, lumbar region
CPT/HCPCS: 72148

== ENCOUNTER 2023-06-08 07:24 | Day surgery (SDC) | payer MEDICAID, SELFPAY ==
[2023-06-08 07:38] VITALS: BP 141/76; PULSE 65; RESP 18; TEMP 36.5; O2SAT 97
[2023-06-08] MEDS: sodium chloride 0.9% 1,000 ML 30 ML IV (07:55)
--- NOTE | 2023-06-08 08:06 | P.ANESASSM_ITS ---
Pre-Anesthetic Assessment Height/Weight: Height 1.52 m Weight 39.916 kg Temp Pulse Resp BP Pulse Ox O2 Del Method 97.7 F 65 18 141/76 97 Room Air 06/08/23 07:38 06/08/23 07:38 06/08/23 07:38 06/08/23 07:38 06/08/23 07:38 06/08/23 07:38 Preop Diagnosis: iron deficiency anemia Operation Date: 06/08/23 08:30 Proposed Procedures p [id number] egd [id number] colon G0121 screen colon A risk Z12.11,R10.13,K21.9(Not Applicable) - DO jody Amador Colonoscopy(Not Applicable) - Eleazar Zhu DO Familial anesthetic complications: none Was Beta Ольга taken within 24 hours: Yes Was Clonidine taken within 24 hours: N/A Last intake: Intake Last Liquid Date 06/07/23 Last Liquid Time 23:00 Last Solid Date 06/06/23 Last Solid Time 19:00 Social Alcohol and Tobacco 1/2 pack(s) per day quit age 23 pack years Was heavy binge drinker quit 3 months ago Exam alert, oriented x 3, clear to auscultation bilaterally and regular rate & rhythm Airway Submandibular: within normal limits Cervical ROM: within normal limits Mallampati: Class I Dentition: full History/ROS No significant history except as noted Pulmonary None reported CV/HEM Hypertension and Myocardial Infarction None reported Hepatic None reported GI History of gastric mass with stomach resection Metabolic None reported Musc/skel Fibromyalgia and Lower Back Pain Neuropsych Depression and None reported Anesthetic Plan ASA status: 3 Anesthesia: Anesthesia Evaluation and MAC Risk of > 500 ml blood loss (7ml/kg in children): No Medications/Allergies Home Medications Medication Instructions Recorded Confirmed Last Taken Type montelukast 10 mg tablet 10 mg PO DAILY@20 07/19/19 06/06/23 06/07/23 History (Singulair) tizanidine 4 mg tablet 4 mg PO Q8H PRN Muscle Spasm 10/15/19 06/06/23 06/07/23 History amitriptyline 50 mg tablet 50 mg PO .HS #30 tabs 06/23/21 06/06/23 06/07/23 Rx mupirocin 2 % topical ointment 1 applic topical BID PRN Rash 02/15/22 06/06/23 06/07/23 History pantoprazole 40 mg tablet,delayed 40 mg PO DAILY 02/15/22 06/06/23 06/08/23 History release loratadine 10 mg tablet (Claritin) 10 mg PO DAILY@08 PRN Allergy 06/23/22 06/06/23 06/07/23 History Symptoms bupropion HCl 200 mg tablet,12 hr 200 mg PO BID PRN Anxiety 10/27/22 06/06/23 06/07/23 History sustained-release (Wellbutrin SR) magnesium L-lactate 84 mg 84 mg PO BID #180 tabs 11/12/22 06/06/23 06/07/23 Rx tablet,extended release diphenhydramine HCl 25 mg capsule 50 mg PO DAILY 12/22/22 06/06/23 06/07/23 History (Banophen) lisinopril 2.5 mg tablet 2.5 mg PO DAILY 12/22/22 06/06/23 06/07/23 History metoprolol succinate 25 mg 25 mg PO DAILY 12/22/22 06/06/23 06/07/23 History tablet,extended release 24 hr potassium chloride 20 mEq 40 meq PO BID 12/22/22 06/06/23 06/07/23 History tablet,extended release buprenorphine 8 mg-naloxone 2 mg 1 film sublingual DAILY PRN Pain 12/29/22 06/06/23 06/07/23 History sublingual film (Suboxone) spironolactone 25 mg tablet 12.5 mg (1/2 x 25 mg) PO DAILY #90 12/29/22 06/06/23 06/07/23 Rx tabs docusate sodium 100 mg capsule 100 mg PO BID #14 caps 03/28/23 06/06/23 06/07/23 Rx (Colace) midodrine 5 mg tablet 5 mg PO TID #270 tabs 05/10/23 06/06/23 06/07/23 Rx duloxetine 60 mg capsule,delayed 90 mg PO DAILY 05/11/23 06/06/23 06/07/23 History release (Cymbalta) prochlorperazine maleate 10 mg 10 mg PO Q8H PRN Nausea And 06/06/23 06/06/23 06/07/23 History tablet Vomiting Allergies Allergy/AdvReac Type Severity Reaction Status Date / Time No Known Allergies Allergy Verified 05/11/23 14:35 Current Medications Generic Name Dose Route Start Last Admin Trade Name Latesha PRN Reason Stop Dose Admin Sodium Chloride 1,000 mls @ 30 mls/hr 06/08/23 07:30 06/08/23 07:55 Sodium Chloride 0.9% IV 06/09/23 07:29 30 mls/hr .Q24H GREG Administration PFSH Anesthesia Medical History Hypokalemia Diverticulosis Constipation Cystitis cystica Chronic back pain Depression Osteoporosis Fibromyalgia Iron deficiency anemia Peptic ulcer disease 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, recurrent, mild Surgical History (Updated 05/12/23 @ 13:40 by Lauri Medina MD) History of hernia surgery (03/28/23) Laparoscopic repair of incisional hernias x 2 with mesh S/P LASIK surgery of both eyes History of tonsillectomy H/O right knee surgery H/O bilateral breast reduction surgery Hx of cholecystectomy H/O rhinoplasty Nasal fracture History of appendectomy Status post extracorporeal shock wave therapy URETERAL STENT PLACEMENT History of bone marrow biopsy H/O colonoscopy (10/14/20) Diverticulosis History of partial gastrectomy Secondary to peptic ulcer disease, perforated ulcer / partial transverse colectomy with reanastomosis ([place], [place]) H/O: hysterectomy For fibroid and endometriosis / BSO Port-A-Cath in place Placed for transfusions for chronic anemia Family History Father , IN HIS 50'S No problems noted. Mother , AT AGE 78 Cancer OVARIAN Myocardial infarction Stroke Sister CAD (coronary artery disease) Other Hypertension Psychiatric illness Social History Smoking and tobacco/nicotine status: former use of tobacco/nicotine Quit status (tobacco/nicotine): has quit using Year quit tobacco: 1980 Former quit date comment: smoked 6 years total Alcohol intake: current Alcohol intake frequency: holidays/special occasions only Substance/Drug Use: never Adopted: No Caregiver/support person: No Housing: House Marital status: Current occupational status: disabled Data Anesthesia Cardiac Studies: Echocardiogram 12/22/22 Cardiac Event Monitor 06/30/22
--- NOTE | 2023-06-08 08:17 | PM.HP ---
Providers/Chief Complaint Primary Care Provider: Thanh Meyer MD Chief Complaint: Z12.11, R10.13, K21.9 History of Present Illness Preeti Odom is a 63 year old female Review of Systems General: Reports: 10 or more systems reviewed and unremarkable except in HPI and below Medications/Allergies Home Medications Medication Instructions Recorded Confirmed Last Taken Type montelukast 10 mg tablet 10 mg PO DAILY@20 07/19/19 06/06/23 06/07/23 History (Singulair) tizanidine 4 mg tablet 4 mg PO Q8H PRN Muscle Spasm 10/15/19 06/06/23 06/07/23 History amitriptyline 50 mg tablet 50 mg PO .HS #30 tabs 06/23/21 06/06/23 06/07/23 Rx mupirocin 2 % topical ointment 1 applic topical BID PRN Rash 02/15/22 06/06/23 06/07/23 History pantoprazole 40 mg tablet,delayed 40 mg PO DAILY 02/15/22 06/06/23 06/08/23 History release loratadine 10 mg tablet (Claritin) 10 mg PO DAILY@08 PRN Allergy 06/23/22 06/06/23 06/07/23 History Symptoms bupropion HCl 200 mg tablet,12 hr 200 mg PO BID PRN Anxiety 10/27/22 06/06/23 06/07/23 History sustained-release (Wellbutrin SR) magnesium L-lactate 84 mg 84 mg PO BID #180 tabs 11/12/22 06/06/23 06/07/23 Rx tablet,extended release diphenhydramine HCl 25 mg capsule 50 mg PO DAILY 12/22/22 06/06/23 06/07/23 History (Banophen) lisinopril 2.5 mg tablet 2.5 mg PO DAILY 12/22/22 06/06/23 06/07/23 History metoprolol succinate 25 mg 25 mg PO DAILY 12/22/22 06/06/23 06/07/23 History tablet,extended release 24 hr potassium chloride 20 mEq 40 meq PO BID 12/22/22 06/06/23 06/07/23 History tablet,extended release buprenorphine 8 mg-naloxone 2 mg 1 film sublingual DAILY PRN Pain 12/29/22 06/06/23 06/07/23 History sublingual film (Suboxone) spironolactone 25 mg tablet 12.5 mg (1/2 x 25 mg) PO DAILY #90 12/29/22 06/06/23 06/07/23 Rx tabs docusate sodium 100 mg capsule 100 mg PO BID #14 caps 03/28/23 06/06/23 06/07/23 Rx (Colace) midodrine 5 mg tablet 5 mg PO TID #270 tabs 05/10/23 06/06/23 06/07/23 Rx duloxetine 60 mg capsule,delayed 90 mg PO DAILY 05/11/23 06/06/23 06/07/23 History release (Cymbalta) prochlorperazine maleate 10 mg 10 mg PO Q8H PRN Nausea And 06/06/23 06/06/23 06/07/23 History tablet Vomiting Allergies Allergy/AdvReac Type Severity Reaction Status Date / Time No Known Allergies Allergy Verified 05/11/23 14:35 PFSH Acute PFSH: Medical History Hypokalemia Diverticulosis Constipation Cystitis cystica Chronic back pain Depression Osteoporosis Fibromyalgia Iron deficiency anemia Peptic ulcer disease 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, recurrent, mild Surgical History (Updated 05/12/23 @ 13:40 by Lauri Medina MD) History of hernia surgery (03/28/23) Laparoscopic repair of incisional hernias x 2 with mesh S/P LASIK surgery of both eyes History of tonsillectomy H/O right knee surgery H/O bilateral breast reduction surgery Hx of cholecystectomy H/O rhinoplasty Nasal fracture History of appendectomy Status post extracorporeal shock wave therapy URETERAL STENT PLACEMENT History of bone marrow biopsy H/O colonoscopy (10/14/20) Diverticulosis History of partial gastrectomy Secondary to peptic ulcer disease, perforated ulcer / partial transverse colectomy with reanastomosis ([place], [place]) H/O: hysterectomy For fibroid and endometriosis / BSO Port-A-Cath in place Placed for transfusions for chronic anemia Family History Father , IN HIS 50'S No problems noted. Mother , AT AGE 78 Cancer OVARIAN Myocardial infarction Stroke Sister CAD (coronary artery disease) Other Hypertension Psychiatric illness Social History Smoking and tobacco/nicotine status: former use of tobacco/nicotine Quit status (tobacco/nicotine): has quit using Year quit tobacco: 1980 Former quit date comment: smoked 6 years total Alcohol intake: current Alcohol intake frequency: holidays/special occasions only Substance/Drug Use: never Adopted: No Caregiver/support person: No Housing: House Marital status: Current occupational status: disabled Vitals/I&O/Wt Last Vital Signs Temp 97.7 F 06/08/23 07:38 Pulse 65 06/08/23 07:38 Resp 18 06/08/23 07:38 BP 141/76 06/08/23 07:38 Pulse Ox 97 06/08/23 07:38 O2 Del Method Room Air 06/08/23 07:38 Weight last 48 hrs Weight 88 lb A&P Assessment and plan (1) Colon cancer screening: (2) GERD (gastroesophageal reflux disease): (3) Iron deficiency anemia: Plan EGD and colonoscopy Attestations Medical Necessity Statement*: Home Coding Level of Care Code Acute Code for Chg Fwd Diagnoses Colon cancer screening Z12.11 GERD (gastroesophageal reflux disease) K21.9 Iron deficiency anemia D50.9
[2023-06-08 09:08] VITALS: BP 138/56; PULSE 62; RESP 16; O2SAT 98
--- NOTE | 2023-06-08 09:25 | ANE.PACU2 ---
Inpatient post-anesthesia follow up: Airway intact: Yes Vital signs: Temperature 97.7 F Pulse Rate 62 Respiratory Rate 16 Blood Pressure 138/56 Pulse Oximetry 98 Oxygen Delivery Me thod Room Air Oxygen Flow Rate Fraction of Inspir ed Oxygen Hydration adequate: Yes Nausea and vomiting: No Pain level: 1 Mental status: Baseline
== END 2023-06-08 09:26 | disposition home or self-care (01) ==
PROVIDERS: PCP Family Medicine; Visit Provider Surgery
PROC: 0DJ08ZZ Inspection of Upper Intestinal Tract, Via Natural or Artificial Opening Endoscopic (ICD-10-PCS; CPT 43235; principal; 2023-06-08 08:30)
PROC: 0DJD8ZZ Inspection of Lower Intestinal Tract, Via Natural or Artificial Opening Endoscopic (ICD-10-PCS; CPT 45378; 2023-06-08 08:30)
DX: Z12.11 Encounter for screening for malignant neoplasm of colon (principal); K21.9 Gastro-esophageal reflux disease without esophagitis; D50.9 Iron deficiency anemia, unspecified; M81.0 Age-related osteoporosis without current pathological fracture; M79.7 Fibromyalgia; Z87.11 Personal history of peptic ulcer disease; Z87.891 Personal history of nicotine dependence; K29.50 Unspecified chronic gastritis without bleeding; F17.200 Nicotine dependence, unspecified, uncomplicated; I10 Essential (primary) hypertension; I25.2 Old myocardial infarction
CPT/HCPCS: 43239; 45378; 88305; 88342; J2704; J7030

== ENCOUNTER → 2023-06-30 13:57 | Outpatient (BNVA) | payer MEDICAID, SELFPAY | PROVIDERS: PCP Family Medicine; Visit Provider Surgery | DX: K21.9 Gastro-esophageal reflux disease without esophagitis (principal); R11.0 Nausea; Z90.3 Acquired absence of stomach [part of] | CPT/HCPCS: 99214 ==

== ENCOUNTER 2023-07-05 13:56 | Oncology outpatient (recurring) (ONCR) | payer MEDICAID, SELFPAY ==
[2023-07-05 14:23] LABS: Basophils % 0.4 %; Eosinophils # 0.2 10^3/uL (0.0-0.8); Eosinophils % 1.9 %; Lymphocytes # 0.8 10^3/uL (0.8-4.8); Lymphocytes % 10.2 %; Mean Corpuscular HGB Conc 31.6 g/dL (30-55); Mean Corpuscular Hemoglobin 28.4 pg (27-33); Mean Corpuscular Volume 89.9 fl (85-98); Mean Platelet Volume 9.8 fL (7.4-10.4); Monocytes # 0.7 10^3/uL (0.2-0.9); Monocytes % 8.5 %; Neutrophils # 6.31 10^3/uL (1.8-7.7); Neutrophils % 78.5 %; Nucleated Red Blood Cells % 0 %; Platelet Count 298 10^3/cmm (157-399); Red Blood Count 3.45 10^6/uL (3.85-5.65); Red Cell Distribution Width 14.6 % (12.1-15.1); White Blood Count 8.03 10^3/uL (3.29-11.43)
[2023-07-05 14:47] LABS: Alanine Aminotransferase 9 U/L (0-33); Albumin Level 3.7 g/dL (3.5-5.2); Alkaline Phosphatase 75 U/L (35-105); Anion Gap 14.2 (5-19); Aspartate Amino Transferase 19 U/L (0-32); Blood Urea Nitrogen 16 mg/dL (8-23); Calcium 8.3 mg/dL (8.5-10.5); Carbon Dioxide 24 mmol/L (22-29); Chloride 104 mmol/L (98-107); Ferritin 351 ng/mL (15-150); Globulin 1.5 g/dL (1.3-4.6); Glomerular Filtration Rate 84.8 mL/min (90-130); Glucose 89 mg/dL (65-115); Iron 120 ug/dL (37-145); Osmolality Calculated 287 mOsm/kg (285-295); Percent Saturation 56.3 % (20-50); Potassium 4.2 mmol/L (3.5-5.1); Sodium 138 mmol/L (136-145); Total Bilirubin 0.2 mg/dL (0.15-1.2); Total Iron Binding Capacity 213 mcg/dl; Total Protein 5.2 g/dL (6.6-8.7); Unsaturated Iron Binding 93 ug/dL (112-347)
== END 2023-07-31 23:59 | disposition home or self-care (01) ==
PROVIDERS: PCP Family Medicine; Visit Provider Internal Medicine Medical Oncology
DX: D64.9 Anemia, unspecified (principal); Z87.891 Personal history of nicotine dependence; R63.4 Abnormal weight loss; Z68.1 Body mass index [BMI] 19.9 or less, adult
CPT/HCPCS: 36591; 80053; 82728; 83540; 83550; 85025; 99214; J1642

== ENCOUNTER → 2023-07-21 13:02 | Outpatient (BNVA) | payer MEDICAID, SELFPAY | PROVIDERS: PCP Family Medicine; Referring Provider Nurse Practitioner Family; Visit Provider Orthopaedic Surgery | DX: M51.37 Other intervertebral disc degeneration, lumbosacral region; M25.78 Osteophyte, vertebrae | CPT/HCPCS: 72110; 99204 ==

== ENCOUNTER → 2023-10-04 08:08 | Outpatient (BNVA) | payer OTHER, MEDICAID, SELFPAY | PROVIDERS: PCP Family Medicine; Visit Provider Nurse Practitioner Family | DX: D48.5 Neoplasm of uncertain behavior of skin (principal); L91.8 Other hypertrophic disorders of the skin; S70.361A Insect bite (nonvenomous), right thigh, initial encounter; X58.XXXA Exposure to other specified factors, initial encounter; W89.1XXA Exposure to tanning bed, initial encounter; L72.0 Epidermal cyst; D22.5 Melanocytic nevi of trunk; L81.4 Other melanin hyperpigmentation; L57.8 Other skin changes due to chronic exposure to nonionizing radiation | CPT/HCPCS: 11102; 17110; 99214 ==

== ENCOUNTER 2023-10-11 09:49 | Oncology outpatient (recurring) (ONCR) | payer OTHER, SELFPAY ==
[2023-10-11 10:14] LABS: Basophils % 0.6 %; Eosinophils # 0.3 10^3/uL (0.0-0.8); Eosinophils % 6.3 %; Hematocrit 31.2 % (36-47); Lymphocytes # 0.9 10^3/uL (0.8-4.8); Lymphocytes % 17.1 %; Mean Corpuscular HGB Conc 32.4 g/dL (30-55); Mean Corpuscular Hemoglobin 30.2 pg (27-33); Mean Corpuscular Volume 93.4 fl (85-98); Mean Platelet Volume 9.1 fL (7.4-10.4); Monocytes # 0.6 10^3/uL (0.2-0.9); Monocytes % 11.3 %; Neutrophils # 3.48 10^3/uL (1.8-7.7); Neutrophils % 64.5 %; Nucleated Red Blood Cells % 0 %; Platelet Count 221 10^3/cmm (157-399); Red Blood Count 3.34 10^6/uL (3.85-5.65); Red Cell Distribution Width 13.4 % (12.1-15.1); White Blood Count 5.39 10^3/uL (3.29-11.43)
[2023-10-11 10:31] LABS: Alanine Aminotransferase 14 U/L (0-33); Albumin Level 4.3 g/dL (3.5-5.2); Alkaline Phosphatase 82 U/L (35-105); Anion Gap 14.8 (5-19); Aspartate Amino Transferase 19 U/L (0-32); Blood Urea Nitrogen 17 mg/dL (8-23); Calcium 9.1 mg/dL (8.5-10.5); Carbon Dioxide 29 mmol/L (22-29); Chloride 98 mmol/L (98-107); Ferritin 131 ng/mL (15-150); Globulin 1.7 g/dL (1.3-4.6); Glomerular Filtration Rate 101.3 mL/min (90-130); Glucose 76 mg/dL (65-115); Iron 80 ug/dL (37-145); Lactate Dehydrogenase 192 U/L (135-214); Osmolality Calculated 286 mOsm/kg (285-295); Percent Saturation 27.5 % (20-50); Potassium 3.8 mmol/L (3.5-5.1); Sodium 138 mmol/L (136-145); Total Bilirubin 0.2 mg/dL (0.15-1.2); Total Iron Binding Capacity 290 mcg/dl; Unsaturated Iron Binding 210 ug/dL (112-347)
== END 2023-10-30 23:59 | disposition home or self-care (01) ==
LOC: ONCMED 09:49
PROVIDERS: PCP Family Medicine; Visit Provider Internal Medicine Medical Oncology
DX: D64.9 Anemia, unspecified (principal)
CPT/HCPCS: 36591; 80053; 82728; 83540; 83550; 83615; 85025; 99214

== ENCOUNTER 2023-10-12 18:04 | Emergency (ER) | payer MEDICAID, SELFPAY ==
[2023-10-12 18:14] VITALS: BP 138/70; PULSE 78; RESP 18; TEMP 36.6; O2SAT 99
--- NOTE | 2023-10-12 18:26 | XRR_ITS ---
PROCEDURE INFORMATION: Exam: XR Abdomen Exam date and time: 10/12/2023 7:25 PM Age: 63 years old Clinical indication: Constipation and nausea and vomiting; Additional info: Abd pain, constipation, n/v TECHNIQUE: Imaging protocol: Radiologic exam of the abdomen. Views: Frontal supine view of the abdomen. 1 View. COMPARISON: CT abdomen pelvis con [id number] 03/27/2022 4:31 PM FINDINGS: Gastrointestinal tract: Rectal fecal distension measures as much as 10 cm. The descending colon is also distended with stool up to 8 cm. No visible right colonic distension. Small bowel is normal. The stomach is normal. Intraperitoneal space: Numerous epigastric surgical clips. Bones/joints: Unremarkable. XR/XR abdomen 1V* [id number] IMPRESSION: Significant fecal loading in the distal half of the colon.
--- NOTE | 2023-10-12 18:37 | ED_ITS ---
HPI - Abdominal Pain 2 General: Chief Complaint: Abdominal Pain Stated Complaint: N/V Time Seen by Provider: 10/12/23 18:11 History of Present Illness: Patient presents to the ER by EMS from home with complaints of nausea vomiting abdominal cramping. Patient says this all started this morning when she woke up. Patient has a history of constipation and takes multiple medicines frequently for this. Patient says she took some vegetable laxative later on in a day and after that about an hour she become very sick in her stomach and had multiple vomiting episodes. Prior to that patient was just nauseous since waking up this morning but she was able to eat and keep food down. Patient does have a history of multiple abdominal surgeries with at least 1 colon resection and small bowel obstruction that required surgery. 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, recurrent, mild Surgical History History of hernia surgery (03/28/23) Laparoscopic repair of incisional hernias x 2 with mesh S/P LASIK surgery of both eyes History of tonsillectomy H/O right knee surgery H/O bilateral breast reduction surgery Hx of cholecystectomy H/O rhinoplasty Nasal fracture History of appendectomy Status post extracorporeal shock wave therapy URETERAL STENT PLACEMENT History of bone marrow biopsy H/O colonoscopy (10/14/20) Diverticulosis History of partial gastrectomy Secondary to peptic ulcer disease, perforated ulcer / partial transverse colectomy with reanastomosis ([place], [place]) H/O: hysterectomy For fibroid and endometriosis / BSO Port-A-Cath in place Placed for transfusions for chronic anemia Family History Father , IN HIS 50'S No problems noted. Mother , AT AGE 78 Cancer OVARIAN Myocardial infarction Stroke Sister CAD (coronary artery disease) Other Hypertension Psychiatric illness Social History Smoking and tobacco/nicotine status: former use of tobacco/nicotine Quit status (tobacco/nicotine): has quit using Year quit tobacco: 1980 Former quit date comment: smoked 6 years total Alcohol intake: current Alcohol intake frequency: holidays/special occasions only Substance/Drug Use: never Adopted: No Caregiver/support person: No Housing: House Marital status: Current occupational status: disabled Physical Exam 2 Const: COMMON NORMALS: no acute distress, average body habitus, patient oriented x3, no limitations, healthy appearing, alert and well nourished HENMT: COMMON NORMALS: normocephalic, atraumatic, hearing grossly normal bilaterally, external ears normal, Normal external nose present and moist oral mucous membranes HEAD & SCALP: normocephalic and atraumatic NOSE: Normal external nose present EXTERNAL EAR: Yes external ears normal Neck/C-Spine: COMMON NORMALS: no JVD Chest: COMMONS NORMALS: normal inspection of the chest and normal palpation of entire chest wall Resp: COMMON NORMALS: normal respiratory effort, No retractions, No use of accessory muscles and clear to auscultation bilaterally AUSCULTATION: clear to auscultation bilaterally Cardio: COMMON NORMALS: no JVD, regular rate, regular rhythm, S1 normal heart sound present, S2 normal heart sound present, No gallops present (Cardio), No clicks present (Cardio), No murmurs present (Cardio) and No rub (Cardio) R ATE: regular rate RHYTHM: regular rhythm HEART SOUNDS: S1 normal heart sound present and S2 normal heart sound present GI: COMMON NORMALS: Normal to inspection, nondistended, normoactive bowel sounds present, Soft to palpation, No hepatosplenomegaly present and no masses; negative for non-tender (Mildly tender to palpate throughout abdomen) P ALPATION: Yes Soft to palpation and Yes No hepatosplenomegaly present Neuro: COMMON NORMALS: patient oriented x3 SENSORIUM/ORIENTATION: Yes alert Course 2 Vital Signs: Vital signs: Vital Signs Temperature 97.8 F 10/12/23 18:14 Pulse Rate 70 10/12/23 23:30 Respiratory Rate 18 10/12/23 23:30 Blood Pressure 106/65 10/12/23 23:30 Pulse Oximetry 99 10/12/23 23:30 Oxygen Delivery Me thod Room Air 10/12/23 23:30 MDM - Abdominal Pain Medical Decision Making Patient lab work to include CBC CMP lipase, abdominal x-ray, abdomen pelvis of the CT scan, all this was fairly benign while the patient was here she did have a very large bowel movements that she feels drastically better. Differential Diagnosis Likely abdominal pain and constipation; Unlikely acute appendicitis, calculus of kidney, diverticulitis, endometriosis, gastroenteritis, pancreatitis or small bowel obstruction Medical Records I reviewed the patient's medical records. Lab Data I reviewed the patient's lab results. 10/12/23 19:00 10/12/23 19:00 Labs/Radiology: Radiology Impressions Abdomen X-Ray 10/12/23 18:26 IMPRESSION: Significant fecal loading in the distal half of the colon. Abdomen/Pelvis CT 10/12/23 19:40 IMPRESSION: 1. Generalized colonic fecal distension, mostly with the liquid stool. Distal formed stool appears to be producing a low-grade colon obstruction. Colonic wall thickening indicates colitis. 2. Other chronic findings as described. Laboratory Results WBC 16.42 10^3/uL (3.29-11.43) H 10/12/23 19:00 RBC 4.26 10^6/uL (3.85-5.65) 10/12/23 19:00 Hgb 13.00 g/dL (11.27-16.99) 10/12/23 19:00 Hct 40.1 % (36-47) 10/12/23 19:00 MCV 94.1 fl (85-98) 10/12/23 19:00 MCH 30.5 pg (27-33) 10/12/23 19:00 MCHC 32.4 g/dL (30-55) 10/12/23 19:00 RDW 13.1 % (12.1-15.1) 10/12/23 19:00 Plt Count 260 10^3/cmm (157-399) 10/12/23 19:00 MPV 9.1 fL (7.4-10.4) 10/12/23 19:00 Neut % (Auto) 91.6 % 10/12/23 19:00 Lymph % (Auto) 3.2 % 10/12/23 19:00 [place] % (Auto) 3.5 % 10/12/23 19:00 Eos % (Auto) 0.7 % 10/12/23 19:00 Baso % (Auto) 0.5 % 10/12/23 19:00 Neut # (Auto) 15.05 10^3/uL (1.8-7.7) H 10/12/23 19:00 Lymph # (Auto) 0.5 10^3/uL (0.8-4.8) L 10/12/23 19:00 [place] # (Auto) 0.6 10^3/uL (0.2-0.9) 10/12/23 19:00 Eos # (Auto) 0.1 10^3/uL (0.0-0.8) 10/12/23 19:00 Baso # (Auto) 0.1 10^3/uL (0.0-0.1) 10/12/23 19:00 Nucleated RBC % (auto) 0 % 10/12/23 19:00 Nucleated RBCs # 0.0 /100WBC 10/12/23 19:00 Sodium 136 mmol/L (136-145) 10/12/23 19:00 Potassium 3.6 mmol/L (3.5-5.1) 10/12/23 19:00 Chloride 99 mmol/L (98-107) 10/12/23 19:00 Carbon Dioxide 21 mmol/L (22-29) L 10/12/23 19:00 Anion Gap 19.6 (5-19) H 10/12/23 19:00 BUN 29 mg/dL (8-23) H 10/12/23 19:00 Creatinine 1.0 mg/dL (0.5-0.9) H 10/12/23 19:00 GFR Calculation 56.2 mL/min (90-130) L 10/12/23 19:00 Glucose 107 mg/dL (65-115) 10/12/23 19:00 Calculated Osmolality 288 mOsm/kg (285-295) 10/12/23 19:00 Lactic Acid 1.1 mmol/L (0.5-2.2) 10/12/23 19:00 Calcium 9.0 mg/dL (8.5-10.5) 10/12/23 19:00 Magnesium 2.2 mg/dL (1.7-2.3) 10/12/23 19:00 Total Bilirubin 0.3 mg/dL (0.15-1.2) 10/12/23 19:00 AST 25 U/L (0-32) 10/12/23 19:00 ALT 15 U/L (0-33) 10/12/23 19:00 Alkaline Phosphatase 81 U/L (35-105) 10/12/23 19:00 Total Protein 6.2 g/dL (6.6-8.7) L 10/12/23 19:00 Albumin 4.4 g/dL (3.5-5.2) 10/12/23 19:00 Globulin 1.8 g/dL (1.3-4.6) 10/12/23 19:00 Lipase 25 U/L (13-60) 10/12/23 19:00 All radiology interpretation(s) finalized by discharge Discharge Plan Discharge Patient Disposition: Home Clinical Impression: Abdominal pain Qualifiers: Abdominal location: unspecified location Qualified Code(s): R10.9 - Unspecified abdominal pain Constipation Qualifiers: Constipation type: unspecified constipation type Qualified Code(s): K59.00 - Constipation, unspecified Condition: Stable Prescriptions: No Action montelukast [Singulair] 10 mg tablet 10 mg PO DAILY@20 loratadine [Claritin] 10 mg tablet 10 mg PO DAILY@08 PRN (Reason: Allergy Symptoms) amitriptyline 50 mg tablet 50 mg PO .HS Qty: 30 5RF Hold Instructions: see pcp buprenorphine-naloxone [Suboxone] 8-2 mg film 1 film sublingual DAILY PRN (Reason: Pain) spironolactone 25 mg tablet 12.5 mg PO DAILY Qty: 90 3RF duloxetine [Cymbalta] 60 mg capsule,delayed release(DR/EC) 90 mg PO DAILY mupirocin 2 % ointment 1 applic topical BID PRN (Reason: Rash) Rx Instructions: apply to affected area once daily pantoprazole 40 mg tablet,delayed release (DR/EC) 40 mg PO DAILY bupropion HCl [Wellbutrin SR] 200 mg tablet sustained-release 12 hr 200 mg PO BID PRN (Reason: Anxiety) ondansetron 8 mg tablet,disintegrating 8 mg PO Q8H PRN (Reason: nausea and vomiting) Qty: 30 5RF dronabinol [Marinol] 2.5 mg capsule 2.5 mg PO BID Qty: 60 3RF Rx Instructions: administer before lunch and evening meal/dinner magnesium L-lactate 84 mg tablet extended release 84 mg PO BID Qty: 180 1RF midodrine 5 mg tablet 5 mg PO TID Qty: 270 1RF Rx Instructions: do not give last dose of day after 6PM or within 4 hrs of bedtime tizanidine 4 mg Tablet 4 mg PO Q8H PRN (Reason: Muscle Spasm) diphenhydramine HCl [Banophen] 25 mg capsule 50 mg PO DAILY metoprolol succinate 25 mg tablet extended release 24 hr 25 mg PO DAILY lisinopril 2.5 mg tablet 2.5 mg PO DAILY potassium chloride 20 mEq tablet extended release 40 meq PO BID prochlorperazine maleate 10 mg tablet 10 mg PO Q8H PRN (Reason: Nausea And Vomiting) docusate sodium [Colace] 100 mg capsule 100 mg PO BID Qty: 14 0RF Discharge Orders: Discharge ED (Routine); Ordered 10/12/23 Ordered By: Jos Doran Referrals: Thanh Meyer MD [Primary Care Provider] - 1 week Patient Instructions: Constipation - Adult, Abdominal Pain (ED) Activity Restrictions/Additional Instructions: Please continue your bowel regimen to help you from being constipated. Please follow-up with your family practitioner in the next 7 days for further evaluation and treatment. Return to the ER if pain worsens or returns. Coding Level of Care Code ED Reformatory Attendant for Latia Harper
[2023-10-12 19:11] LABS: Basophils # 0.1 10^3/uL (0.0-0.1); Basophils % 0.5 %; Eosinophils # 0.1 10^3/uL (0.0-0.8); Eosinophils % 0.7 %; Hematocrit 40.1 % (36-47); Lymphocytes # 0.5 10^3/uL (0.8-4.8); Lymphocytes % 3.2 %; Mean Corpuscular HGB Conc 32.4 g/dL (30-55); Mean Corpuscular Hemoglobin 30.5 pg (27-33); Mean Corpuscular Volume 94.1 fl (85-98); Mean Platelet Volume 9.1 fL (7.4-10.4); Monocytes # 0.6 10^3/uL (0.2-0.9); Monocytes % 3.5 %; Neutrophils # 15.05 10^3/uL (1.8-7.7); Neutrophils % 91.6 %; Nucleated Red Blood Cells % 0 %; Platelet Count 260 10^3/cmm (157-399); Red Blood Count 4.26 10^6/uL (3.85-5.65); Red Cell Distribution Width 13.1 % (12.1-15.1); White Blood Count 16.42 10^3/uL (3.29-11.43)
[2023-10-12 19:29] LABS: Lactic Sepsis W/Reflex 1.1 mmol/L (0.5-2.2)
[2023-10-12 19:30] VITALS: BP 121/64; PULSE 72; RESP 18; O2SAT 98
[2023-10-12 19:30] LABS: Alanine Aminotransferase 15 U/L (0-33); Albumin Level 4.4 g/dL (3.5-5.2); Alkaline Phosphatase 81 U/L (35-105); Aspartate Amino Transferase 25 U/L (0-32); Blood Urea Nitrogen 29 mg/dL (8-23); Carbon Dioxide 21 mmol/L (22-29); Chloride 99 mmol/L (98-107); Creatinine Clr Calc Pharmacy 40.0084; Globulin 1.8 g/dL (1.3-4.6); Glomerular Filtration Rate 56.2 mL/min (90-130); Glucose 107 mg/dL (65-115); Lipase 25 U/L (13-60); Magnesium 2.2 mg/dL (1.7-2.3); Osmolality Calculated 288 mOsm/kg (285-295); Sodium 136 mmol/L (136-145); Total Bilirubin 0.3 mg/dL (0.15-1.2); Total Protein 6.2 g/dL (6.6-8.7)
[2023-10-12] MEDS: sodium chloride 0.9% 1,000 ML 999 ML IV (19:30)
[2023-10-12] MEDS: ketorolac 30 mg/mL INJ IVP (19:30)
[2023-10-12] MEDS: ondansetron 2 mg/ML SDV 2 mL 4 MG IVP ×2 (19:30→22:33)
[2023-10-12 19:36] LABS: Anion Gap 19.6 (5-19); Potassium 3.6 mmol/L (3.5-5.1)
--- NOTE | 2023-10-12 19:40 | CTR_ITS ---
PROCEDURE INFORMATION: Exam: CT Abdomen And Pelvis With Contrast Exam date and time: 10/12/2023 8:34 PM Age: 63 years old Clinical indication: Nausea and vomiting; Abdominal pain; Generalized; Additional info: Abd pain, n/v, HX of bowel resection due to obstruction TECHNIQUE: Imaging protocol: Computed tomography of the abdomen and pelvis with contrast. Radiation optimization: All CT scans at this facility use at least one of these dose optimization techniques: automated exposure control; mA and/or kV adjustment per patient size (includes targeted exams where dose is matched to clinical indication); or iterative reconstruction. Contrast material: OMNI 350; Contrast volume: 80 ml; Contrast route: INTRAVENOUS (IV); COMPARISON: CT abdomen pelvis wo con [id number] 03/27/2022 4:31 PM RADIATION DOSE METRICS: Total DLP (mGy-cm): 323 FINDINGS: Diaphragm: Small hiatus hernia. Liver: Normal. No mass. Gallbladder and bile ducts: The gallbladder is surgically absent. There is secondary dilatation of the biliary tree and common duct. Pancreas: Pancreas is atrophic. Spleen: Normal. No splenomegaly. Adrenal glands: Normal. No mass. Kidneys and ureters: Several 1 cm or smaller left renal cysts. Stomach and bowel: Increased formed stool in the rectum. However most of the colon is filled with liquid stool and is dilated up to 6.3 cm and with nonfocal wall thickening. No pneumatosis or perforation. Small bowel is normal caliber. There is an incidental small focus of likely transient intussusception in the left mid abdominal small bowel. Patent anastomosis in the right lower quadrant. Appendix: No evidence of appendicitis. Intraperitoneal space: Small pelvic free fluid. Vasculature: Unremarkable. No abdominal aortic aneurysm. Lymph nodes: Unremarkable. No enlarged lymph nodes. Urinary bladder: Unremarkable as visualized. Reproductive: The uterus is absent and the ovaries are not seen. Bones/joints: Scattered degenerative disc disease in the thoracolumbar spine. Soft tissues: Unremarkable. CT/CT abdomen pelvis w con* [id number] IMPRESSION: 1. Generalized colonic fecal distension, mostly with the liquid stool. Distal formed stool appears to be producing a low-grade colon obstruction. Colonic wall thickening indicates colitis. 2. Other chronic findings as described.
[2023-10-12] MEDS: iohexol 350 mg/mL 500 mL Btl (per mL) IV (20:38)
[2023-10-12 20:48] VITALS: BP 102/63; PULSE 79; RESP 16; O2SAT 96
[2023-10-12 21:30] VITALS: BP 127/75; PULSE 76; RESP 18; O2SAT 97
[2023-10-12] MEDS: morphine 4 mg/mL SDV 1 mL 2 MG IVP (22:33)
[2023-10-12 23:10] VITALS: BP 122/68; PULSE 70; RESP 16; O2SAT 96
[2023-10-12 23:30] VITALS: BP 106/65; PULSE 70; RESP 18; O2SAT 99
== END 2023-10-12 23:51 | disposition home or self-care (01) ==
PROVIDERS: Emergency Provider Emergency Medicine; PCP Family Medicine
DX: K59.00 Constipation, unspecified (principal); R10.9 Unspecified abdominal pain; Z87.891 Personal history of nicotine dependence
CPT/HCPCS: 36415; 74018; 74177; 80053; 83605; 83690; 83735; 85025; 96374; 96375; 96376; 99285; J1885; J2270; J2405; J7030; Q9967

== ENCOUNTER 2023-11-15 13:37 | Oncology outpatient (recurring) (ONCR) | payer MEDICAID, SELFPAY ==
[2023-11-15 14:18] LABS: Basophils # 0.1 10^3/uL (0.0-0.1); Basophils % 0.6 %; Eosinophils # 0.3 10^3/uL (0.0-0.8); Eosinophils % 3.5 %; Lymphocytes % 12.2 %; Mean Corpuscular HGB Conc 32.4 g/dL (30-55); Mean Corpuscular Hemoglobin 29.7 pg (27-33); Mean Corpuscular Volume 91.6 fl (85-98); Mean Platelet Volume 9.2 fL (7.4-10.4); Monocytes # 0.7 10^3/uL (0.2-0.9); Monocytes % 8.5 %; Neutrophils # 6.26 10^3/uL (1.8-7.7); Neutrophils % 74.7 %; Nucleated Red Blood Cells % 0 %; Platelet Count 251 10^3/cmm (157-399); Red Blood Count 4.04 10^6/uL (3.85-5.65); Red Cell Distribution Width 13.2 % (12.1-15.1); White Blood Count 8.37 10^3/uL (3.29-11.43)
[2023-11-15 14:29] LABS: Alanine Aminotransferase 11 U/L (0-33); Albumin Level 4.4 g/dL (3.5-5.2); Alkaline Phosphatase 80 U/L (35-105); Anion Gap 15.5 (5-19); Aspartate Amino Transferase 17 U/L (0-32); Blood Urea Nitrogen 31 mg/dL (8-23); Calcium 8.8 mg/dL (8.5-10.5); Carbon Dioxide 28 mmol/L (22-29); Chloride 95 mmol/L (98-107); Ferritin 93 ng/mL (15-150); Globulin 1.9 g/dL (1.3-4.6); Glomerular Filtration Rate 41.5 mL/min (90-130); Glucose 96 mg/dL (65-115); Iron 134 ug/dL (37-145); Osmolality Calculated 284 mOsm/kg (285-295); Percent Saturation 44.6 % (20-50); Potassium 4.5 mmol/L (3.5-5.1); Sodium 134 mmol/L (136-145); Total Bilirubin 0.2 mg/dL (0.15-1.2); Total Iron Binding Capacity 300 mcg/dl; Total Protein 6.3 g/dL (6.6-8.7); Unsaturated Iron Binding 166 ug/dL (112-347)
== END 2023-11-30 23:59 | disposition home or self-care (01) ==
PROVIDERS: PCP Family Medicine; Visit Provider Internal Medicine Medical Oncology
DX: D64.9 Anemia, unspecified (principal); Z53.9 Procedure and treatment not carried out, unspecified reason
CPT/HCPCS: 36591; 80053; 82728; 83540; 83550; 85025

== ENCOUNTER → 2023-12-19 09:05 | Outpatient (BNVA) | payer MEDICAID, SELFPAY | PROVIDERS: PCP Family Medicine; Visit Provider Podiatrist Foot & Ankle Surgery | DX: S92.412A Displaced fracture of proximal phalanx of left great toe, initial encounter for closed fracture; W22.03XA Walked into furniture, initial encounter | CPT/HCPCS: 73630; 99204 ==

== ENCOUNTER 2023-12-30 10:28 | Day surgery (SDC) | payer MEDICAID, SELFPAY ==
[2023-12-30] VITALS (7 sets, daily range): BP systolic 107–135; BP diastolic 59–69; PULSE 63–79; RESP 12–18; TEMP 36.9; O2SAT 95–98; BMI 17.6
--- NOTE | 2023-12-30 10:55 | P.OP_ITS ---
Operative Report Date of procedure: December 30, 2023 Surgeon: Dank Krueger DPM Procedure: Date of procedure: December 30, 2023 Surgeon: Dank Krueger DPM Global Marketing Manager: Kyler Cosme Estimated blood loss: 2 Tourniquet time 33 Brief History: 63 year old female patient here for evaluation of her left great toe fracture. DOI: 12/09/23. She states that she accidental ran into a chair. X-rays taken in clinic at today's visit 12/19/2023 shows comminuted displaced fracture of the proximal phalanx diaphysis is extra-articular, left great toe with deformity. There is 30 degrees of angulation with the distal fragment oriented dorsal distal to proximal plantar. Given the extent of displacement at 30 degrees and visible deformity of the left great toe recommended open reduction internal fixation to restore anatomic alignment and provide rigid internal fixation to the fracture. I reviewed at length with the patient, the risks, potential complications, benefits, alternatives, expectations, and typical outcomes associated with the surgery. The risks and potential complications were explained in detail, including but not limited to infection, wound dehiscence or soft tissue complications, bleeding and hematoma, chronic edema, neuritis or nerve damage producing numbness or chronic pain, CRPS, failure to relieve pain or worsening pain, thick / painful / unsightly scar, limited motion / stiffness, malposition, delayed union, malunion, or nonunion, fracture, reaction to implants, anesthetic complications, venous thromboembolism, and deformity recurrence. I discussed the notion of no regrets with the patient as it pertains to complications and outcomes. The patient seemed to understand the nature of the proposed care and required convalescence. They asked appropriate questions, answered to their satisfaction. They are aware no guarantees can be made as to a satisfactory outcome and they understand there may be other possible unforeseen complications or outcomes not listed here that will be treated accordingly if they arise. There were no written or implied guarantees given to the patient. They gave informed consent to proceed. Anticipating postop shoe postoperatively with decreased activities for minimum of 6 weeks and serial x-rays to monitor healing. Procedure: Under mild sedation patient was brought to the operating room and remained on the gurney in supine position. A timeout was performed. Anesthesia was then administered by the anesthesia service. Local anesthesia injected by myself consisting of 0.5% Marcaine plain in a left male block fashion and 20 cc of Exparel subcutaneously in a grid like fashion at the medial column of the left foot. Well-padded pneumatic tourniquet applied to the left ankle. Left lower extremity was scrubbed, prepped and draped utilizing normal aseptic technique. Left foot and ankle were exanguinated with an Esmarch bandage and tourniquet inflated to 250 mmHg. Attention was directed to the left great toe where gross deformity was appreciated at the left great toe fracture with the distal hallux dorsiflexed in a divot at the level of the proximal phalanx and soft tissue due to the severity of the underlying bony deformity. Incision was planned out and carried out through skin with a #15 blade medial to the left hallux with dissection carried down through subcutaneous tissue to the layer periosteum utilizing sharp and blunt technique. Care was taken to retract and preserve neurovascular and tendinous structures. All bleeders were ligated and cauterized as necessary. Fracture was identified, distracted, curettaged of hematoma followed by saline flush and reduced followed by fixation utilizing standard AO technique with a 4- hole locking plate medial to the proximal phalanx cortex on the medial wall, fracture was then fixated utilizing standard AO technique with 4 locking screws these were [place] 2.5 mm locking screws x 4. AP, oblique and lateral view confirmed anatomic reduction of the proximal phalanx fracture, excellent placement of hardware not violating adjacent joints. Bony fixation was robust, smooth range of motion at the hallux interphalange joint and first metatarsal phalangeal joint appreciated intraoperatively. The incision was irrigated and closed in a layered fashion, periosteum reapproximated with 4-0 Vicryl, subcutaneous tissue with 4-0 Vicryl and skin with 4-0 nylon. Incision was dressed with Adaptic, sterile 4 x 4, Kerlix and Dayo wrap followed by application of a postop shoe. Tourniquet was deflated and a prompt hyperemic response is noted to the distal digits of the left foot. Patient tolerated the procedure and anesthesia well and was transferred to the PACU with vital signs stable and vascular status intact. Following a period of postoperative monitoring to be discharged home without home care instructions, schedule follow-up and myself number to contact with any postoperative questions or concerns.
--- NOTE | 2023-12-30 11:06 | W.PM.OPSUD ---
Surgery/Procedure H&P Update DATE OF PROCEDURE: December 30, 2023 DATE H&P PERFORMED: 12/19/23 H&P UPDATE INFORMATION: I have reviewed H&P completed within last 30 days, I have examined patient prior to procedure, No changes to prior documentation and H&P is in [facility] EMR on date indicated PREOP DIAGNOSIS: Left great toe fracture PLANNED PROCEDURE: Operation Date: 12/30/23 11:55 Proposed Procedures p ORIF Proximal Phalanx left great toe(Left) - Dank Krueger DPM
[2023-12-30] MEDS: CELEcoxib 200 mg Capsule 400 MG PO (11:09)
[2023-12-30] MEDS: sodium chloride 0.9% 1,000 ML 30 ML IV (11:09)
[2023-12-30] MEDS: gabapentin 300 mg Capsule PO (11:09)
--- NOTE | 2023-12-30 11:30 | PM.OP ---
Operative Report Date of procedure: December 30, 2023 Surgeon: Dank Krueger DPM Telecasting Engineer: Kyler Cosme Estimated blood loss: 2 33 Brief History: 63 year old female patient here for evaluation of her left great toe fracture. DOI: 12/09/23. She states that she accidental ran into a chair. X-rays taken in clinic at today's visit 12/19/2023 shows comminuted displaced fracture of the proximal phalanx diaphysis is extra-articular, left great toe with deformity. There is 30 degrees of angulation with the distal fragment oriented dorsal distal to proximal plantar. Given the extent of displacement at 30 degrees and visible deformity of the left great toe recommended open reduction internal fixation to restore anatomic alignment and provide rigid internal fixation to the fracture. I reviewed at length with the patient, the risks, potential complications, benefits, alternatives, expectations, and typical outcomes associated with the surgery. The risks and potential complications were explained in detail, including but not limited to infection, wound dehiscence or soft tissue complications, bleeding and hematoma, chronic edema, neuritis or nerve damage producing numbness or chronic pain, CRPS, failure to relieve pain or worsening pain, thick / painful / unsightly scar, limited motion / stiffness, malposition, delayed union, malunion, or nonunion, fracture, reaction to implants, anesthetic complications, venous thromboembolism, and deformity recurrence. I discussed the notion of no regrets with the patient as it pertains to complications and outcomes. The patient seemed to understand the nature of the proposed care and required convalescence. They asked appropriate questions, answered to their satisfaction. They are aware no guarantees can be made as to a satisfactory outcome and they understand there may be other possible unforeseen complications or outcomes not listed here that will be treated accordingly if they arise. There were no written or implied guarantees given to the patient. They gave informed consent to proceed. Anticipating postop shoe postoperatively with decreased activities for minimum of 6 weeks and serial x-rays to monitor healing.
[2023-12-30] MEDS: ceFAZolin 2,000 mg SDV 2000 MG IVP (11:41)
--- NOTE | 2023-12-30 11:49 | ANES.PREANE2 ---
Pre-Anesthetic Assessment Height/Weight: Height 1.52 m Weight 40.823 kg Temp Pulse Resp BP Pulse Ox O2 Del Method 98.5 F 79 16 135/66 96 Room Air 12/30/23 10:44 12/30/23 10:44 12/30/23 10:44 12/30/23 10:44 12/30/23 10:44 12/30/23 10:54 Preop Diagnosis: Left great toe fracture Operation Date: 12/30/23 11:55 Proposed Procedures p ORIF Proximal Phalanx left great toe(Left) - Dank Krueger, DPM Was Beta Ольга taken within 24 hours: Yes Last intake: Intake Last Liquid Date 12/29/23 Last Liquid Time 18:00 Last Solid Date 12/29/23 Last Solid Time 18:00 Social No alcohol and No tobacco Exam alert, oriented x 3, clear to auscultation bilaterally and regular rate & rhythm Airway Submandibular: within normal limits Cervical ROM: within normal limits Mallampati: Class I Dentition: false Pulmonary None reported CV/HEM Anemia, Coronary Artery Disease, Hypertension and Myocardial Infarction Chronic Renal Insufficiency frequent UTI GI Gastroesophageal Reflux Disease (well controlled) [facility] Osteoarthritis/DJD Anesthetic Plan ASA status: 3 Anesthesia: MAC Medications/Allergies Home Medications Medication Instructions Recorded Confirmed Last Taken Type montelukast 10 mg tablet 10 mg PO DAILY@20 07/19/19 12/30/23 12/29/23 History (Singulair) tizanidine 4 mg tablet 4 mg PO Q8H PRN Muscle Spasm 10/15/19 12/30/23 12/29/23 History amitriptyline 50 mg tablet 50 mg PO .HS #30 tabs 06/23/21 12/30/23 12/29/23 Rx mupirocin 2 % topical ointment 1 applic topical BID PRN Rash 02/15/22 12/30/23 12/29/23 History pantoprazole 40 mg tablet,delayed 40 mg PO DAILY 02/15/22 12/30/23 12/29/23 History release loratadine 10 mg tablet (Claritin) 10 mg PO DAILY@08 PRN Allergy 06/23/22 12/30/23 12/29/23 History Symptoms bupropion HCl 200 mg tablet,12 hr 200 mg PO BID PRN Anxiety 10/27/22 12/30/23 12/29/23 History sustained-release (Wellbutrin SR) magnesium L-lactate 84 mg 84 mg PO BID #180 tabs 11/12/22 12/30/23 12/28/23 Rx tablet,extended release diphenhydramine HCl 25 mg capsule 50 mg PO DAILY 12/22/22 12/30/23 12/28/23 History (Banophen) lisinopril 2.5 mg tablet 2.5 mg PO DAILY 12/22/22 12/30/23 12/29/23 History metoprolol succinate 25 mg 25 mg PO DAILY 12/22/22 12/30/23 12/29/23 History tablet,extended release 24 hr potassium chloride 20 mEq 40 meq PO BID 12/22/22 12/30/23 12/29/23 History tablet,extended release buprenorphine 8 mg-naloxone 2 mg 1 film sublingual DAILY PRN Pain 12/29/22 12/30/23 12/29/23 History sublingual film (Suboxone) spironolactone 25 mg tablet 12.5 mg (1/2 x 25 mg) PO DAILY #90 12/29/22 12/30/23 12/29/23 Rx tabs duloxetine 60 mg capsule,delayed 90 mg PO DAILY 05/11/23 12/30/23 12/29/23 History release (Cymbalta) prochlorperazine maleate 10 mg 10 mg PO Q8H PRN Nausea And 06/06/23 12/30/23 12/29/23 History tablet Vomiting ondansetron 8 mg disintegrating 8 mg PO Q8H PRN nausea and 06/30/23 12/30/23 12/29/23 Rx tablet vomiting #30 tabs hydrocodone 10 mg-acetaminophen 1 tab PO Q6H PRN pain 7 days #28 12/30/23 Unknown Rx 325 mg tablet tabs Allergies Allergy/AdvReac Type Severity Reaction Status Date / Time No Known Allergies Allergy Verified 12/29/23 14:58 Current Medications Generic Name Dose Route Start Last Admin Trade Name Freq PRN Reason Stop Dose Admin Sodium Chloride 1,000 mls @ 30 mls/hr 12/30/23 10:45 12/30/23 11:09 Sodium Chloride 0.9% IV 12/31/23 10:44 30 mls/hr .Q24H GREG Administration PFSH Anesthesia Medical History Anemia Psychiatric care Hypokalemia Diverticulosis Constipation Cystitis cystica Chronic back pain Depression Osteoporosis Fibromyalgia Peptic ulcer disease 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, recurrent, mild Surgical History History of hernia surgery (03/28/23) Laparoscopic repair of incisional hernias x 2 with mesh S/P LASIK surgery of both eyes History of tonsillectomy H/O right knee surgery H/O bilateral breast reduction surgery Hx of cholecystectomy H/O rhinoplasty Nasal fracture History of appendectomy Status post extracorporeal shock wave therapy URETERAL STENT PLACEMENT History of bone marrow biopsy H/O colonoscopy (10/14/20) Diverticulosis History of partial gastrectomy Secondary to peptic ulcer disease, perforated ulcer / partial transverse colectomy with reanastomosis ([place]) H/O: hysterectomy For fibroid and endometriosis / BSO Port-A-Cath in place Placed for transfusions for chronic anemia Family History Father , IN HIS 50'S No problems noted. Mother , AT AGE 78 Cancer OVARIAN Myocardial infarction Stroke Sister CAD (coronary artery disease) Other Hypertension Psychiatric illness Social History Smoking and tobacco/nicotine status: never used tobacco/nicotine Quit status (tobacco/nicotine): has quit using Year quit tobacco: 1980 Former quit date comment: smoked 6 years total Alcohol intake: current Alcohol intake frequency: holidays/special occasions only Substance/Drug Use: never Adopted: No Caregiver/support person: No Housing: House Marital status: Current occupational status: disabled Data Anesthesia Cardiac Studies: Echocardiogram 12/22/22 Cardiac Event Monitor 06/30/22
[2023-12-30] MEDS: BUPivacaine liposome 13.3 mg/mL SDV 20 mL 266 MG INJECTION (12:05)
[2023-12-30] MEDS: BUPivacaine 0.5% INJ 30 mL INJECTION (12:05)
--- NOTE | 2023-12-30 12:38 | W.PM.BPON ---
Date of Procedure: 07/15/23 Surgeon: Dank Krueger DPM Tilting Saw Operator(s): John SIMPSON Procedure(s) performed: Open reduction internal fixation left great toe proximal phalanx fracture Findings of the procedure(s): None Estimated blood loss: 2 mL Specimen(s) removed: None Post-operative diagnosis: Proximal phalanx fracture left great toe
--- NOTE | 2023-12-30 13:31 | ANE.PACU2 ---
Inpatient post-anesthesia follow up: Airway intact: Yes Vital signs: Temperature 98.4 F Pulse Rate 67 Respiratory Rate 18 Blood Pressure 122/69 Pulse Oximetry 98 Oxygen Delivery Me thod Room Air Oxygen Flow Rate Fraction of Inspir ed Oxygen Hydration adequate: Yes Nausea and vomiting: No Pain level: controlled Mental status: Baseline
--- NOTE | 2023-12-30 16:04 | XR_ITS ---
WS: [id number] Examination: XR foot LT 2V [id number] Reason for Exam: TEENA ROBERTS [place] Date: December 30, 2023 Comparison: December 19, 2023. Findings: 2 intraoperative images have been obtained during plate and screw fixation of the left first proximal phalanx fracture. The fracture appears satisfactorily aligned XR/XR foot LT 2V [id number] Impression: Intraoperative fixation of the left first proximal phalanx fracture. Please see intraoperative note for full explanation of findings and the procedure.
== END 2023-12-30 13:40 | disposition home or self-care (01) ==
PROVIDERS: PCP Family Medicine; Visit Provider Podiatrist Foot & Ankle Surgery
PROC: (CPT 28505; principal; 2023-12-30 11:45)
DX: S92.415A Nondisplaced fracture of proximal phalanx of left great toe, initial encounter for closed fracture (principal); W22.8XXA Striking against or struck by other objects, initial encounter; I25.10 Atherosclerotic heart disease of native coronary artery without angina pectoris; I10 Essential (primary) hypertension; I25.2 Old myocardial infarction; K21.9 Gastro-esophageal reflux disease without esophagitis; M19.90 Unspecified osteoarthritis, unspecified site; M79.7 Fibromyalgia
CPT/HCPCS: 28505; 73620; 76000; C1713; C9290; J0690; J2250; J2704; J3010; J3490; J7030

== ENCOUNTER → 2024-01-12 11:22 | Outpatient (BNVA) | payer MEDICAID, SELFPAY | PROVIDERS: PCP Family Medicine; Visit Provider Podiatrist Foot & Ankle Surgery | DX: S92.412D Displaced fracture of proximal phalanx of left great toe, subsequent encounter for fracture with routine healing; X58.XXXD Exposure to other specified factors, subsequent encounter | CPT/HCPCS: 73630; 99024 ==

== ENCOUNTER 2024-02-08 08:30 | Oncology outpatient (recurring) (ONCR) | payer MEDICAID, SELFPAY ==
[2024-02-01 09:34] LABS: Basophils % 0.3 %; Eosinophils # 0.3 10^3/uL (0.0-0.8); Eosinophils % 3.7 %; Hematocrit 34.4 % (36-47); Lymphocytes # 0.7 10^3/uL (0.8-4.8); Lymphocytes % 9.9 %; Mean Corpuscular HGB Conc 32.3 g/dL (30-55); Mean Corpuscular Hemoglobin 29.4 pg (27-33); Mean Corpuscular Volume 91.2 fl (85-98); Mean Platelet Volume 9.2 fL (7.4-10.4); Monocytes # 0.8 10^3/uL (0.2-0.9); Monocytes % 11.4 %; Neutrophils % 74.4 %; Nucleated Red Blood Cells % 0 %; Platelet Count 240 10^3/cmm (157-399); Red Blood Count 3.77 10^6/uL (3.85-5.65); Red Cell Distribution Width 13.6 % (12.1-15.1); White Blood Count 6.99 10^3/uL (3.29-11.43)
[2024-02-01 09:55] LABS: Alanine Aminotransferase 8 U/L (0-33); Albumin Level 4.1 g/dL (3.5-5.2); Alkaline Phosphatase 68 U/L (35-105); Anion Gap 13.8 (5-19); Aspartate Amino Transferase 14 U/L (0-32); Blood Urea Nitrogen 17 mg/dL (8-23); Calcium 8.6 mg/dL (8.5-10.5); Carbon Dioxide 23 mmol/L (22-29); Chloride 104 mmol/L (98-107); Ferritin 33 ng/mL (15-150); Globulin 1.7 g/dL (1.3-4.6); Glomerular Filtration Rate 72.7 mL/min (90-130); Glucose 94 mg/dL (65-115); Iron 68 ug/dL (37-145); Magnesium 1.7 mg/dL (1.7-2.3); Osmolality Calculated 285 mOsm/kg (285-295); Percent Saturation 19.2 % (20-50); Potassium 3.8 mmol/L (3.5-5.1); Sodium 137 mmol/L (136-145); Total Bilirubin 0.3 mg/dL (0.15-1.2); Total Iron Binding Capacity 354 mcg/dl; Total Protein 5.8 g/dL (6.6-8.7); Unsaturated Iron Binding 286 ug/dL (112-347)
[2024-02-08 08:57] VITALS: BP 143/88; PULSE 82; TEMP 37.2; O2SAT 96
[2024-02-08] MEDS: sodium chloride 0.9% 500 ML 75 ML IV (09:11)
[2024-02-08] MEDS: acetaminophen 325 mg Tablet 650 MG PO (09:11)
[2024-02-08] MEDS: diphenhydrAMINE 50 mg/mL SDV 1mL 25 MG IVP (09:12)
[2024-02-08] MEDS: iron dextran 25 MG in SYRINGE 1 EACH 30 MG IVP (09:47)
[2024-02-08] MEDS: iron dextran 900 MG in sodium chloride 0.9% 1,000 ML 250.75 MG IV (10:55)
[2024-02-08 14:40] VITALS: BP 170/88; PULSE 80; RESP 16; O2SAT 98
[2024-02-08] MEDS: ondansetron 2 mg/ML SDV 2 mL 8 MG IVP (14:44)
[2024-02-08 15:29] VITALS: BP 154/83; PULSE 78; RESP 16; TEMP 36.8; O2SAT 95
== END 2024-03-01 23:59 | disposition home or self-care (01) ==
PROVIDERS: Nurse Practitioner Family; PCP Family Medicine; Visit Provider Internal Medicine Hematology & Oncology
DX: Z53.9 Procedure and treatment not carried out, unspecified reason (principal); D64.9 Anemia, unspecified; Z79.899 Other long term (current) drug therapy
CPT/HCPCS: 36591; 80053; 82728; 83540; 83550; 83735; 85025; 96365; 96366; 96375; 99214; J1200; J1750; J2405; J7030; J7040

== ENCOUNTER 2024-02-09 14:54 | Outpatient (CLI) | payer MEDICAID, SELFPAY ==
[2024-02-09 15:55] LABS: Albumin Level 3.7 g/dL (3.5-5.2); Blood Urea Nitrogen 8 mg/dL (8-23); Calcium 8.5 mg/dL (8.5-10.5); Carbon Dioxide 23 mmol/L (22-29); Chloride 105 mmol/L (98-107); Glucose 112 mg/dL (65-115); Phosphorus 3.6 mg/dL (2.5-4.5); Sodium 140 mmol/L (136-145)
[2024-02-09 16:27] LABS: Creatinine Urine, Random 9 mg/dL (28-217); Microalbum Creatinine Ratio Ur 111 mg/dL (0-20); Microalbumin Random Urine 1 ug/dL (0-20)
[2024-02-09 17:40] LABS: Anion Gap 15.7 (5-19); Potassium 3.7 mmol/L (3.5-5.1)
== END 2024-02-09 14:55 | disposition home or self-care (01) ==
LOC: LAB 14:55
PROVIDERS: PCP Family Medicine; Visit Provider Internal Medicine
DX: Z98.890 Other specified postprocedural states (principal)
CPT/HCPCS: 36415; 73630; 80069; 82044; 99024

== ENCOUNTER 2024-03-22 08:59 | Oncology outpatient (recurring) (ONCR) | payer MEDICAID, SELFPAY ==
[2024-03-22 09:30] LABS: Basophils % 0.8 %; Eosinophils # 0.4 10^3/uL (0.0-0.8); Eosinophils % 7.7 %; Hematocrit 25.9 % (36-47); Lymphocytes # 1.2 10^3/uL (0.8-4.8); Lymphocytes % 22.8 %; Mean Corpuscular HGB Conc 30.9 g/dL (30-55); Mean Corpuscular Hemoglobin 29.9 pg (27-33); Mean Corpuscular Volume 96.6 fl (85-98); Mean Platelet Volume 9.9 fL (7.4-10.4); Monocytes # 0.6 10^3/uL (0.2-0.9); Monocytes % 12.7 %; Neutrophils # 2.78 10^3/uL (1.8-7.7); Neutrophils % 55.2 %; Nucleated Red Blood Cells % 0 %; Platelet Count 218 10^3/cmm (157-399); Red Blood Count 2.68 10^6/uL (3.85-5.65); Red Cell Distribution Width 14.5 % (12.1-15.1); White Blood Count 5.04 10^3/uL (3.29-11.43)
[2024-03-22 09:59] LABS: Alanine Aminotransferase 20 U/L (0-33); Albumin Level 3.4 g/dL (3.5-5.2); Alkaline Phosphatase 76 U/L (35-105); Anion Gap 15.9 (5-19); Aspartate Amino Transferase 35 U/L (0-32); Blood Urea Nitrogen 15 mg/dL (8-23); Calcium 8.2 mg/dL (8.5-10.5); Carbon Dioxide 22 mmol/L (22-29); Chloride 107 mmol/L (98-107); Creatinine Clr Calc Pharmacy 69.9491; Ferritin 361 ng/mL (15-150); Globulin 1.5 g/dL (1.3-4.6); Glucose 71 mg/dL (65-115); Iron 128 ug/dL (37-145); Osmolality Calculated 291 mOsm/kg (285-295); Percent Saturation 56.8 % (20-50); Potassium 3.9 mmol/L (3.5-5.1); Sodium 141 mmol/L (136-145); Total Bilirubin 0.2 mg/dL (0.15-1.2); Total Iron Binding Capacity 225 mcg/dl; Total Protein 4.9 g/dL (6.6-8.7); Unsaturated Iron Binding 97 ug/dL (112-347)
[2024-03-22 11:28] LABS: Reticulocyte % 2.7 % (0.5-2.0)
[2024-03-22 11:37] LABS: Lactate Dehydrogenase 147 U/L (135-214)
[2024-03-22 11:53] LABS: Vitamin B12 342 pg/mL (232-1245)
[2024-03-22 11:58] LABS: Folate Level 5.2 ng/mL (4.8-37.3)
== END 2024-03-31 23:59 | disposition home or self-care (01) ==
PROVIDERS: Nurse Practitioner Family; PCP Family Medicine; Visit Provider Internal Medicine
DX: D50.9 Iron deficiency anemia, unspecified (principal); Z79.899 Other long term (current) drug therapy; Z95.828 Presence of other vascular implants and grafts; Z87.891 Personal history of nicotine dependence; Z96.82 Presence of neurostimulator
CPT/HCPCS: 36415; 36591; 80053; 82607; 82728; 82746; 83010; 83540; 83550; 83615; 85025; 85045; 99213

== ENCOUNTER 2024-03-27 14:18 | Outpatient (CLI) | payer MEDICAID, SELFPAY ==
[2024-03-27 15:08] LABS: Creatinine Urine, Random 25 mg/dL (28-217); Microalbum Creatinine Ratio Ur 40 mg/dL (0-20); Microalbumin Random Urine 1 ug/dL (0-20)
[2024-03-27 15:09] LABS: Albumin Level 3.9 g/dL (3.5-5.2); Anion Gap 16.1 (5-19); Blood Urea Nitrogen 12 mg/dL (8-23); Calcium 8.8 mg/dL (8.5-10.5); Carbon Dioxide 25 mmol/L (22-29); Chloride 97 mmol/L (98-107); Glomerular Filtration Rate 84.5 mL/min (90-130); Glucose 186 mg/dL (65-115); Phosphorus 4.5 mg/dL (2.5-4.5); Potassium 3.1 mmol/L (3.5-5.1); Sodium 135 mmol/L (136-145)
== END 2024-03-27 14:19 | disposition home or self-care (01) ==
LOC: LAB 14:20
PROVIDERS: PCP Family Medicine; Visit Provider Internal Medicine
DX: N18.31 Chronic kidney disease, stage 3a (principal)
CPT/HCPCS: 80069; 82044

== ENCOUNTER 2024-04-26 08:30 | Oncology outpatient (recurring) (ONCR) | payer MEDICAID, SELFPAY ==
[2024-04-05 09:07] LABS: Basophils % 0.6 %; Eosinophils # 0.3 10^3/uL (0.0-0.8); Hematocrit 30.3 % (36-47); Lymphocytes # 0.7 10^3/uL (0.8-4.8); Lymphocytes % 12.9 %; Mean Corpuscular Hemoglobin 30.4 pg (27-33); Mean Corpuscular Volume 98.1 fl (85-98); Mean Platelet Volume 8.8 fL (7.4-10.4); Monocytes # 0.5 10^3/uL (0.2-0.9); Monocytes % 10.5 %; Neutrophils # 3.51 10^3/uL (1.8-7.7); Neutrophils % 69.8 %; Nucleated Red Blood Cells % 0 %; Platelet Count 190 10^3/cmm (157-399); Red Blood Count 3.09 10^6/uL (3.85-5.65); White Blood Count 5.03 10^3/uL (3.29-11.43)
[2024-04-05 09:08] LABS: Reticulocyte % 2.8 % (0.5-2.0)
[2024-04-05 09:24] LABS: Alanine Aminotransferase 10 U/L (0-33); Albumin Level 3.6 g/dL (3.5-5.2); Alkaline Phosphatase 91 U/L (35-105); Anion Gap 13.9 (5-19); Aspartate Amino Transferase 17 U/L (0-32); Blood Urea Nitrogen 14 mg/dL (8-23); Calcium 8.7 mg/dL (8.5-10.5); Carbon Dioxide 24 mmol/L (22-29); Chloride 105 mmol/L (98-107); Ferritin 175 ng/mL (15-150); Globulin 1.5 g/dL (1.3-4.6); Glucose 87 mg/dL (65-115); Iron 89 ug/dL (37-145); Lactate Dehydrogenase 171 U/L (135-214); Osmolality Calculated 288 mOsm/kg (285-295); Percent Saturation 37.5 % (20-50); Potassium 3.9 mmol/L (3.5-5.1); Sodium 139 mmol/L (136-145); Total Bilirubin 0.3 mg/dL (0.15-1.2); Total Iron Binding Capacity 237 mcg/dl; Total Protein 5.1 g/dL (6.6-8.7); Unsaturated Iron Binding 148 ug/dL (112-347)
== END 2024-05-01 23:59 | disposition home or self-care (01) ==
PROVIDERS: PCP Family Medicine; Visit Provider Internal Medicine
DX: Z53.9 Procedure and treatment not carried out, unspecified reason
CPT/HCPCS: 36591; 80053; 82728; 83010; 83540; 83550; 83615; 85025; 85045; 99213

== ENCOUNTER → 2024-06-21 14:40 | Outpatient (BNVA) | payer MEDICAID, SELFPAY | PROVIDERS: PCP Family Medicine; Visit Provider Internal Medicine | DX: I51.81 Takotsubo syndrome (principal) | CPT/HCPCS: 99214 ==

== ENCOUNTER 2024-08-28 13:30 | Oncology outpatient (recurring) (ONCR) | payer MEDICAID, SELFPAY ==
[2024-07-31 13:50] LABS: Basophils % 0.7 %; Eosinophils # 0.2 10^3/uL (0.0-0.8); Eosinophils % 4.3 %; Hematocrit 30.5 % (36-47); Lymphocytes # 1.2 10^3/uL (0.8-4.8); Lymphocytes % 22.9 %; Mean Corpuscular HGB Conc 31.1 g/dL (30-55); Mean Corpuscular Hemoglobin 27.7 pg (27-33); Mean Corpuscular Volume 88.9 fl (85-98); Monocytes # 0.5 10^3/uL (0.2-0.9); Monocytes % 8.6 %; Neutrophils # 3.39 10^3/uL (1.8-7.7); Neutrophils % 62.9 %; Nucleated Red Blood Cells % 0 %; Platelet Count 269 10^3/cmm (157-399); Red Blood Count 3.43 10^6/uL (3.85-5.65); Red Cell Distribution Width 14.6 % (12.1-15.1); White Blood Count 5.38 10^3/uL (3.29-11.43)
[2024-07-31 14:08] LABS: Alanine Aminotransferase 6 U/L (0-33); Albumin Level 4.2 g/dL (3.5-5.2); Alkaline Phosphatase 78 U/L (35-105); Anion Gap 14.6 (5-19); Aspartate Amino Transferase 13 U/L (0-32); Blood Urea Nitrogen 17 mg/dL (8-23); Calcium 8.7 mg/dL (8.5-10.5); Carbon Dioxide 24 mmol/L (22-29); Chloride 103 mmol/L (98-107); Ferritin 36 ng/mL (15-150); Globulin 1.7 g/dL (1.3-4.6); Glomerular Filtration Rate 63.2 mL/min (90-130); Glucose 105 mg/dL (65-115); Iron 48 ug/dL (37-145); Osmolality Calculated 288 mOsm/kg (285-295); Percent Saturation 15.8 % (20-50); Potassium 3.6 mmol/L (3.5-5.1); Sodium 138 mmol/L (136-145); Total Bilirubin 0.2 mg/dL (0.15-1.2); Total Iron Binding Capacity 303 mcg/dl; Total Protein 5.9 g/dL (6.6-8.7); Unsaturated Iron Binding 255 ug/dL (112-347)
== END 2024-08-29 23:59 | disposition home or self-care (01) ==
PROVIDERS: Nurse Practitioner Family; PCP Family Medicine; Visit Provider Internal Medicine
DX: Z53.9 Procedure and treatment not carried out, unspecified reason (principal)
CPT/HCPCS: 36591; 80053; 82728; 83540; 83550; 85025

== ENCOUNTER → 2024-10-15 08:53 | Outpatient (BNVA) | payer MEDICAID, SELFPAY | PROVIDERS: PCP Family Medicine; Visit Provider Student in an Organized Health Care Education/Training Program | DX: R10.13 Epigastric pain (principal) | CPT/HCPCS: 99204 ==

== ENCOUNTER 2024-10-24 09:03 | Oncology outpatient (recurring) (ONCR) | payer MEDICAID, SELFPAY ==
[2024-10-04 14:28] LABS: Basophils % 0.6 %; Eosinophils # 0.2 10^3/uL (0.0-0.8); Eosinophils % 2.4 %; Hematocrit 28.1 % (36-47); Lymphocytes # 0.9 10^3/uL (0.8-4.8); Lymphocytes % 13.8 %; Mean Corpuscular HGB Conc 31.7 g/dL (30-55); Mean Corpuscular Hemoglobin 27.4 pg (27-33); Mean Corpuscular Volume 86.5 fl (85-98); Mean Platelet Volume 10.1 fL (7.4-10.4); Monocytes # 0.7 10^3/uL (0.2-0.9); Monocytes % 10.9 %; Neutrophils # 4.54 10^3/uL (1.8-7.7); Nucleated Red Blood Cells % 0 %; Platelet Count 258 10^3/cmm (157-399); Red Blood Count 3.25 10^6/uL (3.85-5.65); Red Cell Distribution Width 14.7 % (12.1-15.1); Reticulocyte % 1.2 % (0.5-2.0); White Blood Count 6.31 10^3/uL (3.29-11.43)
[2024-10-04 14:51] LABS: Alanine Aminotransferase 7 U/L (0-33); Albumin Level 3.8 g/dL (3.5-5.2); Alkaline Phosphatase 71 U/L (35-105); Anion Gap 15.8 (5-19); Aspartate Amino Transferase 14 U/L (0-32); Blood Urea Nitrogen 17 mg/dL (8-23); Calcium 8.7 mg/dL (8.5-10.5); Carbon Dioxide 23 mmol/L (22-29); Chloride 105 mmol/L (98-107); Ferritin 14 ng/mL (15-150); Globulin 1.9 g/dL (1.3-4.6); Glomerular Filtration Rate 50.2 mL/min (90-130); Glucose 68 mg/dL (65-115); Iron 18 ug/dL (37-145); Osmolality Calculated 290 mOsm/kg (285-295); Percent Saturation 5.6 % (20-50); Potassium 3.8 mmol/L (3.5-5.1); Sodium 140 mmol/L (136-145); Total Bilirubin 0.2 mg/dL (0.15-1.2); Total Iron Binding Capacity 320 mcg/dl; Total Protein 5.7 g/dL (6.6-8.7); Unsaturated Iron Binding 302 ug/dL (112-347)
[2024-10-24] MEDS: sodium chloride 0.9% 500 ML 75 ML IV (10:30)
[2024-10-24] MEDS: acetaminophen 325 mg Tablet 650 MG PO (10:31)
[2024-10-24] MEDS: diphenhydrAMINE 50 mg/mL SDV 1mL 25 MG IVP (10:32)
[2024-10-24] MEDS: iron dextran 25 MG in SYRINGE 1 EACH 30 MG IVP (11:08)
[2024-10-24] MEDS: iron dextran 1,000 MG in sodium chloride 0.9% 1,000 ML 250.75 MG IV (12:15)
[2024-10-24 16:15] VITALS: BP 72/33; PULSE 61; RESP 18; TEMP 36.7; O2SAT 93
[2024-10-24 16:20] VITALS: BP 72/39
[2024-10-24 16:46] VITALS: BP 89/50
[2024-10-24 16:54] VITALS: BP 81/44
[2024-10-24 17:02] VITALS: BP 73/38
== END 2024-10-29 23:59 | disposition home or self-care (01) ==
PROVIDERS: Nurse Practitioner Family; PCP Family Medicine; Visit Provider Internal Medicine
DX: Z53.9 Procedure and treatment not carried out, unspecified reason; D50.8 Other iron deficiency anemias; Z79.899 Other long term (current) drug therapy
CPT/HCPCS: 36591; 80053; 82728; 83010; 83540; 83550; 85025; 85045; 96365; 96366; 96375; 96523; 99214; J1200; J1750; J7030; J7040; J9999

== ENCOUNTER 2024-10-24 17:11 | Emergency (ER) | payer MEDICAID, SELFPAY ==
[2024-10-24] VITALS (14 sets, daily range): BP systolic 71–121; BP diastolic 36–64; PULSE 43–83; RESP 14–17; TEMP 36.5–37.1; O2SAT 96–100; BMI 18.5
--- OUTSIDE RECORDS SUMMARY | 2024-10-24 17:16 | XMS_ITS | Encounter Summary ---
Author Organization [facility] Address [address] [place] [address] Care Team Providers Care Film Processing Shift Supervisor Name Role Phone Oleg Hamilton MD Primary Care Provider [phone]- [phone] Encounter Details Date Type Department Care Team (Latest Contact Info) Description 02/02/2006 Outpatient Historical [facility] [address] [place] [address] [address] [place] [phone] Jimi Adams MD [address] [place] [address] Unspecified Iron Deficiency Anemia (Primary Dx); Unspecified adverse effect of other drug, medicinal and biological substance(995.29) Social History Tobacco Use Types Packs/Day Years Used Date Smoking Tobacco: Never Assessed Comments Unknown Sex and Gender Information Value Date Recorded Sex Assigned at Not on file Legal Sex Female 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
--- OUTSIDE RECORDS SUMMARY | 2024-10-24 17:16 | XMS_ITS | Encounter Summary ---
Author Organization [facility] Address [address] [place] [address] Care Team Providers Care Fur Cutter Name Role Phone Oleg Hamilton MD Primary Care Provider +1- [phone] Encounter Details Date Type Department Care Team (Late st Contact Info) Description 02/02/[address] 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
--- OUTSIDE RECORDS SUMMARY | 2024-10-24 17:16 | XMS_ITS | Encounter Summary ---
Author Organization 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
--- OUTSIDE RECORDS SUMMARY | 2024-10-24 17:16 | XMS_ITS | Encounter Summary ---
Author Organization [facility] Address [address] [place] [address] Care Team Providers Care Retail Service Technician Name Role Phone Oleg Hamilton MD Primary Care Provider +1- [phone] Encounter Details Date Type Department Care Team (Late st Contact Info) Description 06/28/2005 Outpatient Historical [facility] Social History Tobacco Use Types Packs/Day Years Used Date Smoking Tobacco: Never Assessed Comments Unknown Sex and Gender Information Value Date Recorded Sex Assigned at Not on file Legal Sex Female 5:17 AM CARD BRUSHER Gender Identity Not on file Sexual Orientation Not on file documented as of this encounter Plan of Treatment Not on file documented as of this encounter Visit Diagnoses Not on filedocumented in this encounter Care Teams Retail Service Technician Relationship Specialty Start Date End Date Oleg Hamilton MD PCP - General 06/04/04 documented as of this encounter
--- OUTSIDE RECORDS SUMMARY | 2024-10-24 17:16 | XMS_ITS | Encounter Summary ---
Author Organization [facility] Address [address] [place] [address] Care Team Providers Care Manager Of School Name Role Phone Oleg Hamilton MD Primary Care Provider +1- [phone] Encounter Details Date Type Department Care Team (Latest Contact Info) Description 02/28/2006 Outpatient Historical [facility] [address] [place] [address] [address] [place] [phone] Jimi Adams MD [address] [place] [address] Unspecified Iron Deficiency Anemia (Primary Dx) Social History Tobacco Use Types Packs/Day Years Used Date Smoking Tobacco: Never Assessed Comments Unknown Sex and Gender Information Value Date Recorded Sex Assigned at Not on file Legal Sex Female 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
--- OUTSIDE RECORDS SUMMARY | 2024-10-24 17:16 | XMS_ITS | Encounter Summary ---
Author Organization [facility] Address [address] [place] [address] Care Team Providers Care Asphalt Tamping Machine Operator Name Role Phone Oleg Hamilton MD Primary Care Provider +1- [phone] Encounter Details Date Type Department Care Team (Latest Contact Info) Description 04/14/2005 Outpatient Historical [facility] [address] [place] [address] [facility] [address] [place] [phone] Sidney Cortés MD NO ADDRESS ON FILE LUMB/LUMBOSAC DISC DEGEN (Primary Dx) Social History Tobacco Use Types Packs/Day Years Used Date Smoking Tobacco: Never Assessed Comments Unknown Sex and Gender Information Value Date Recorded Sex Assigned at Not on file Legal Sex Female 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
--- OUTSIDE RECORDS SUMMARY | 2024-10-24 17:16 | XMS_ITS | Encounter Summary ---
Author Organization [facility] Address [address] [place] [address] Care Team Providers Care Environmental Protection Economist Name Role Phone Oleg Hamilton MD Primary Care Provider +1- [phone] Encounter Details Date Type Department Care Team ([facility] st Contact Info) Description 07/22/2005 Outpatient [facility] [place] [address] [place] [address] Cruz Cortés MD [address] [facility] [address] [place], [place] [address] Social History Tobacco Use Types Packs/Day Years Used Date Smoking Tobacco: Never Assessed Comments Unknown Sex and Gender Information Value Date Recorded Sex Assigned at Not on file Legal Sex Female 5:17 AM SLATE CUTTER OPERATOR Gender Identity Not on file Sexual Orientation Not on file documented as of this encounter Plan of Treatment Not on file documented as of this encounter Visit Diagnoses Not on filedocumented in this encounter Care Teams Environmental Protection Economist Relationship Specialty Start Date End Date Oleg Hamilton MD PCP - General 06/04/04 documented as of this encounter
--- OUTSIDE RECORDS SUMMARY | 2024-10-24 17:16 | XMS_ITS | Encounter Summary ---
Author Organization [facility] Address [address] [place] [address] Care Team Providers Care Manager Eligibility Name Role Phone Oleg Hamilton MD Primary Care Provider +1- [phone] Encounter Details Date Type Department Care Team (Latest Contact Info) Description 06/22/2006 Outpatient Historical [facility] Cancer and Hematology [address] [place] [address] [address] [place] [address] Tiara Foley, JAYLA NO ADDRESS ON FILE Unspecified Iron Deficiency Anemia (Primary Dx); Lumbago; Disorders of Sacrum Social History Tobacco Use Types Packs/Day Years Used Date Smoking Tobacco: Never Assessed Comments Unknown Sex and Gender Information Value Date Recorded Sex Assigned at Not on file Legal Sex Female 5:17 AM LEAD SCIENTIST Gender Identity Not on file Sexual Orientation Not on file documented as of this encounter Plan of Treatment Not on file documented as of this encounter Visit Diagnoses Diagnosis Iron deficiency anemia, unspecified- Primary Lumbago Disorders of sacrum documented in this encounter Care Teams Manager Eligibility Relationship Specialty Start Date End Date Oleg Hamilton MD PCP - General 06/04/04 documented as of this encounter
--- OUTSIDE RECORDS SUMMARY | 2024-10-24 17:16 | XMS_ITS | Encounter Summary ---
Author Organization [facility] Address [address] [place] [address] Care Team Providers Care Machine Bander And Cellophaner Helper Name Role Phone Oleg Hamilton MD Primary Care Provider +1- [phone] Encounter Details Date Type Department Care Team (Latest Contact Info) Description 02/28/2006 Outpatient Historical [facility] Cancer and Hematology [address] [place] [address] [address] [place] [address] Jimi Adams MD [address] [place] [address] Unspecified Iron Deficiency Anemia (Primary Dx); Encounter for Antineoplastic Chemotherapy; Nausea Alone Social History Tobacco Use Types Packs/Day Years Used Date Smoking Tobacco: Never Assessed Comments Unknown Sex and Gender Information Value Date Recorded Sex Assigned at Not on file Legal Sex Female 5:17 AM FLORAL CLERK Gender Identity Not on file Sexual Orientation Not on file documented as of this encounter Plan of Treatment Not on file documented as of this encounter Visit Diagnoses Diagnosis Iron deficiency anemia, unspecified- Primary Encounter for antineoplastic chemotherapy Nausea alone documented in this encounter Care Teams Machine Bander And Cellophaner Helper Relationship Specialty Start Date End Date Oleg Hamilton MD PCP - General 06/04/04 documented as of this encounter
--- OUTSIDE RECORDS SUMMARY | 2024-10-24 17:16 | XMS_ITS | Encounter Summary ---
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); Lumbago; Disorders of Sacrum Social History Tobacco Use Types Packs/Day Years Used Date Smoking Tobacco: Never Assessed Comments Unknown Sex and Gender Information Value Date Recorded Sex Assigned at Not on file Legal Sex Female 5:17 AM JIGGER ARTISAN Gender Identity Not on file Sexual Orientation Not on file documented as of this encounter Plan of Treatment Not on file documented as of this encounter Visit Diagnoses Diagnosis Degeneration of lumbar or lumbosacral intervertebral disc- Primary Lumbago Disorders of sacrum documented in this encounter Care Teams Clinical Transplant Coordinator Relationship Specialty Start Date End Date Oleg Hamilton MD PCP - General 06/04/04 documented as of this encounter
--- OUTSIDE RECORDS SUMMARY | 2024-10-24 17:16 | XMS_ITS | Encounter Summary ---
Author Organization [facility] Address [address] [place] [address] Care Team Providers Care Rental Clerk Tool And Equipment Name Role Phone Oleg Hamilton MD Primary Care Provider +1- [phone] Encounter Details Date Type Department Care Team (Late st Contact Info) Description 04/20/2005 Outpatient Historical [facility] Social History Tobacco Use Types Packs/Day Years Used Date Smoking Tobacco: Never Assessed Comments Unknown Sex and Gender Information Value Date Recorded Sex Assigned at Not on file Legal Sex Female 5:17 AM ELECTROMECHANICAL ASSEMBLER Gender Identity Not on file Sexual Orientation Not on file documented as of this encounter Plan of Treatment Not on file documented as of this encounter Visit Diagnoses Not on filedocumented in this encounter Care Teams Rental Clerk Tool And Equipment Relationship Specialty Start Date End Date Oleg Hamilton MD PCP - General 06/04/04 documented as of this encounter
--- OUTSIDE RECORDS SUMMARY | 2024-10-24 17:16 | XMS_ITS | Encounter Summary ---
Author Organization [facility] Address [address] [place] [address] Care Team Providers Care Coil Connector Name Role Phone Oleg Hamilton MD Primary Care Provider +1- [phone] Encounter Details Date Type Department Care Team (Latest Contact Info) Description 04/30/2005 Outpatient Historical [facility] Cancer and Hematology [address] [place] [address] [address] [place] [address] Sumanth Moreno MD [address] [place] [address] IRON DEFIC ANEMIA NOS (Primary Dx); ADV EFFECT MED/BIOL SUB NOS Social History Tobacco Use Types Packs/Day Years Used Date Smoking Tobacco: Never Assessed Comments Unknown Sex and Gender Information Value Date Recorded Sex Assigned at Not on file Legal Sex Female 5:17 AM SENIOR UX DESIGNER Gender Identity Not on file Sexual Orientation Not on file documented as of this encounter Plan of Treatment Not on file documented as of this encounter Visit Diagnoses Diagnosis Iron deficiency anemia, unspecified- Primary Other and unspecified adverse effect of drug, medicinal and biological substance documented in this encounter Care Teams Coil Connector Relationship Specialty Start Date End Date Oleg Hamilton MD PCP - General 06/04/04 documented as of this encounter
--- OUTSIDE RECORDS SUMMARY | 2024-10-24 17:16 | XMS_ITS | Encounter Summary ---
Author Organization [facility] Address [address] [place] [address] Care Team Providers Care Health Information Internship Name Role Phone Oleg Hamilton MD Primary Care Provider +1- [phone] Encounter Details Date Type Department Care Team (Late st Contact Info) Description 06/30/2006 Outpatient [facility] [address] [place] [address] Social History Tobacco Use Types Packs/Day Years Used Date Smoking Tobacco: Never Assessed Comments Unknown Sex and Gender Information Value Date Recorded Sex Assigned at Not on file Legal Sex Female 5:17 AM OPTOMETRIST/PRACTICE OWNER Gender Identity Not on file Sexual Orientation Not on file documented as of this encounter Plan of Treatment Not on file documented as of this encounter Visit Diagnoses Not on filedocumented in this encounter Care Teams Health Information Internship Relationship Specialty Start Date End Date Oleg Hamilton MD PCP - General 06/04/04 documented as of this encounter
--- OUTSIDE RECORDS SUMMARY | 2024-10-24 17:16 | XMS_ITS | Encounter Summary ---
Author Organization [facility] Address [address] [place] [address] Care Team Providers Care Dealer Card Room Name Role Phone Oleg Hamilton MD Primary Care Provider +1- [phone] Encounter Details Date Type Department Care Team (Latest Contact Info) Description 04/19/2005 Outpatient Historical [facility] Cancer and Hematology [address] [place] [address] [address] [place] [address] Jimi Adams MD [address] [place] [address] IRON DEFIC ANEMIA NOS (Primary Dx) Social History Tobacco Use Types Packs/Day Years Used Date Smoking Tobacco: Never Assessed Comments Unknown Sex and Gender Information Value Date Recorded Sex Assigned at Not on file Legal Sex Female 5:17 AM WALLPAPERER HELPER Gender Identity Not on file Sexual Orientation Not on file documented as of this encounter Plan of Treatment Not on file documented as of this encounter Visit Diagnoses Diagnosis Iron deficiency anemia, unspecified- Primary documented in this encounter Care Teams Dealer Card Room Relationship Specialty Start Date End Date Oleg Hamilton MD PCP - General 06/04/04 documented as of this encounter
--- OUTSIDE RECORDS SUMMARY | 2024-10-24 17:16 | XMS_ITS | Encounter Summary ---
Author Organization [facility] Address [address] [place] [address] Care Team Providers Care Dungeon Master Name Role Phone Oleg Hamilton MD Primary Care Provider +1- [phone] Encounter Details Date Type Department Care Team (Late st Contact Info) Description 08/25/2006 Outpatient [facility] [address] [place] [address] Social History Tobacco Use Types Packs/Day Years Used Date Smoking Tobacco: Never Assessed Comments Unknown Sex and Gender Information Value Date Recorded Sex Assigned at Not on file Legal Sex Female 5:17 AM FORMING ROLL OPERATOR Gender Identity Not on file Sexual Orientation Not on file documented as of this encounter Plan of Treatment Not on file documented as of this encounter Visit Diagnoses Not on filedocumented in this encounter Care Teams Dungeon Master Relationship Specialty Start Date End Date Oleg Hamilton MD PCP - General 06/04/04 documented as of this encounter
--- OUTSIDE RECORDS SUMMARY | 2024-10-24 17:16 | XMS_ITS | Encounter Summary ---
Author Organization [facility] Address [address] [place] [address] Care Team Providers Care Radiology Physician Assistant Name Role Phone Oleg Hamilton MD Primary Care Provider +1- [phone] Encounter Details Date Type Department Care Team (Late st Contact Info) Description 06/12/2003 Outpatient [facility] Family Medicine [address] [phone] Marion Davis MD NO ADDRESS ON FILE Social History Tobacco Use Types Packs/Day Years Used Date Smoking Tobacco: Never Assessed Comments Unknown Sex and Gender Information Value Date Recorded Sex Assigned at Not on file Legal Sex Female 5:17 AM DISPATCH COORDINATOR Gender Identity Not on file Sexual Orientation Not on file documented as of this encounter Plan of Treatment Not on file documented as of this encounter Visit Diagnoses Not on filedocumented in this encounter Care Teams Radiology Physician Assistant Relationship Specialty Start Date End Date Oleg Hamilton MD PCP - General 06/04/04 documented as of this encounter
--- OUTSIDE RECORDS SUMMARY | 2024-10-24 17:16 | XMS_ITS | Encounter Summary ---
Author Organization [facility] Address [address] [place] [address] Care Team Providers Care Mold Technician Name Role Phone Oleg Hamilton MD Primary Care Provider +1- [phone] Encounter Details Date Type Department Care Team (Latest Contact Info) Description 02/02/2005 Outpatient Historical [facility] [address] [place] [address] Sidney Cortés MD NO ADDRESS ON FILE LUMB/LUMBOSAC DISC DEGEN (Primary Dx); LUMBAGO Social History Tobacco Use Types Packs/Day Years Used Date Smoking Tobacco: Never Assessed Comments Unknown Sex and Gender Information Value Date Recorded Sex Assigned at Not on file Legal Sex Female 5:17 AM EMBOSSING CLERK Gender Identity Not on file Sexual Orientation Not on file documented as of this encounter Plan of Treatment Not on file documented as of this encounter Visit Diagnoses Diagnosis Degeneration of lumbar or lumbosacral intervertebral disc- Primary Lumbago documented in this encounter Care Teams Mold Technician Relationship Specialty Start Date End Date Oleg Hamilton MD PCP - General 06/04/04 documented as of this encounter
--- OUTSIDE RECORDS SUMMARY | 2024-10-24 17:16 | XMS_ITS | Encounter Summary ---
Author Organization [facility] Address [address] [place] [address] Care Team Providers Care Registrar Assistant Name Role Phone Oleg Hamilton MD Primary Care Provider +1- [phone] Encounter Details Date Type Department Care Team (Latest Contact Info) Description 01/19/2006 Outpatient Historical [facility] Gen Spec Surg [address] [place] [address] Hernan Birmingham MD [facility] [id number] Unspecified Anemia (Primary Dx) Social History Tobacco Use Types Packs/Day Years Used Date Smoking Tobacco: Never Assessed Comments Unknown Sex and Gender Information Value Date Recorded Sex Assigned at Not on file Legal Sex Female 5:17 AM TIMBER BUCKER Gender Identity Not on file Sexual Orientation Not on file documented as of this encounter Plan of Treatment Not on file documented as of this encounter Visit Diagnoses Diagnosis Anemia, unspecified- Primary documented in this encounter Care Teams Registrar Assistant Relationship Specialty Start Date End Date Oleg Hamilton MD PCP - General 06/04/04 documented as of this encounter
--- OUTSIDE RECORDS SUMMARY | 2024-10-24 17:16 | XMS_ITS | Encounter Summary ---
Author Organization [facility] Address [address] [place] [address] Care Team Providers Care Mineral Wool Insulation Supervisor Name Role Phone Oleg Hamilton MD Primary Care Provider +1- [phone] Encounter Details Date Type Department Care Team (Late st Contact Info) Description 07/28/2006 Outpatient [facility] [address] [place] [address] Social History Tobacco Use Types Packs/Day Years Used Date Smoking Tobacco: Never Assessed Comments Unknown Sex and Gender Information Value Date Recorded Sex Assigned at Not on file Legal Sex Female 5:17 AM DEPARTMENT HELPER Gender Identity Not on file Sexual Orientation Not on file documented as of this encounter Plan of Treatment Not on file documented as of this encounter Visit Diagnoses Not on filedocumented in this encounter Care Teams Mineral Wool Insulation Supervisor Relationship Specialty Start Date End Date Oleg Hamilton MD PCP - General 06/04/04 documented as of this encounter
--- OUTSIDE RECORDS SUMMARY | 2024-10-24 17:16 | XMS_ITS | Encounter Summary ---
Author Organization [facility] Address [address] [place] [address] Care Team Providers Care Shore Hand Dredge Or Barge Name Role Phone Oleg Hamilton MD Primary Care Provider +1- [phone] Encounter Details Date Type Department Care Team (Late st Contact Info) Description 05/04/2005 Outpatient Historical [facility] Social History Tobacco Use Types Packs/Day Years Used Date Smoking Tobacco: Never Assessed Comments Unknown Sex and Gender Information Value Date Recorded Sex Assigned at Not on file Legal Sex Female 5:17 AM RETORT OPERATOR Gender Identity Not on file Sexual Orientation Not on file documented as of this encounter Plan of Treatment Not on file documented as of this encounter Visit Diagnoses Not on filedocumented in this encounter Care Teams Shore Hand Dredge Or Barge Relationship Specialty Start Date End Date Oleg Hamilton MD PCP - General 06/04/04 documented as of this encounter
--- OUTSIDE RECORDS SUMMARY | 2024-10-24 17:16 | XMS_ITS | Encounter Summary ---
Author Organization [facility] Address [address] [place] [address] Care Team Providers Care Postal Superintendent Name Role Phone Oleg Hamilton MD Primary Care Provider +1- [phone] Encounter Details Date Type Department Care Team (Latest Contact Info) Description 06/30/2006 Outpatient Historical [facility] Hematology [address] [place] [address] [address] [place] [address] Jimi Adams MD [address] [place] [address] Unspecified Iron Deficiency Anemia (Primary Dx); Adv Eff Med/Biol NEC/NOS; Disorders of Sacrum Social History Tobacco Use Types Packs/Day Years Used Date Smoking Tobacco: Never Assessed Comments Unknown Sex and Gender Information Value Date Recorded Sex Assigned at Not on file Legal Sex Female 5:17 AM BUILDING STONECUTTER Gender Identity Not on file Sexual Orientation Not on file documented as of this encounter Plan of Treatment Not on file documented as of this encounter Visit Diagnoses Diagnosis Iron deficiency anemia, unspecified- Primary Unspecified adverse effect of other drug, medicinal and biological substance(995.29) Unspecified adverse effect of other drug, medicinal and biological substance Disorders of sacrum documented in this encounter Care Teams Postal Superintendent Relationship Specialty Start Date End Date Oleg Hamilton MD PCP - General 06/04/04 documented as of this encounter
--- OUTSIDE RECORDS SUMMARY | 2024-10-24 17:16 | XMS_ITS | Encounter Summary ---
Author Organization [facility] Address [address] [place] [address] Care Team Providers Care Vice President Of Engineering Name Role Phone Oleg Hamilton MD Primary Care Provider +1- [phone] Encounter Details Date Type Department Care Team ([facility] st Contact Info) Description 05/21/2005 Outpatient [facility] [place] [address] [place] [address] Cruz Cortés MD [address] [facility] [address] [place], [place] [id number] PHYSICAL THERAPY NEC (Primary Dx) Social History Tobacco Use Types Packs/Day Years Used Date Smoking Tobacco: Never Assessed Comments Unknown Sex and Gender Information Value Date Recorded Sex Assigned at Not on file Legal Sex Female 5:17 AM SALES CONTRACTOR Gender Identity Not on file Sexual Orientation Not on file documented as of this encounter Plan of Treatment Not on file documented as of this encounter Visit Diagnoses Diagnosis Other physical therapy- Primary documented in this encounter Care Teams Vice President Of Engineering Relationship Specialty Start Date End Date Oleg Hamilton MD PCP - General 06/04/04 documented as of this encounter
--- OUTSIDE RECORDS SUMMARY | 2024-10-24 17:16 | XMS_ITS | Encounter Summary ---
Author Organization [facility] Address [address] [place] [address] Care Team Providers Care Crutching Contractor Name Role Phone Oleg Hamilton MD Primary Care Provider +1- [phone] Encounter Details Date Type Department Care Team (Late st Contact Info) Description 05/11/2005 Outpatient Historical [facility] Social History Tobacco Use Types Packs/Day Years Used Date Smoking Tobacco: Never Assessed Comments Unknown Sex and Gender Information Value Date Recorded Sex Assigned at Not on file Legal Sex Female 5:17 AM COUPON MANIFEST CLERK Gender Identity Not on file Sexual Orientation Not on file documented as of this encounter Plan of Treatment Not on file documented as of this encounter Visit Diagnoses Not on filedocumented in this encounter Care Teams Crutching Contractor Relationship Specialty Start Date End Date Oleg Hamilton MD PCP - General 06/04/04 documented as of this encounter
--- OUTSIDE RECORDS SUMMARY | 2024-10-24 17:16 | XMS_ITS | Encounter Summary ---
Author Organization [facility] Address [address] [place] [address] Care Team Providers Care Sodder Name Role Phone Oleg Hamilton MD Primary Care Provider +1- [phone] Encounter Details Date Type Department Care Team (Latest Contact Info) Description 08/04/2005 Outpatient Historical [facility] Cancer and Hematology [address] [place] [address] [address] [place] [address] Jimi Adams MD [address] [place] [address] Unspecified Iron Deficiency Anemia (Primary Dx); Adv Eff Med/Biol Sub Social History Tobacco Use Types Packs/Day Years Used Date Smoking Tobacco: Never Assessed Comments Unknown Sex and Gender Information Value Date Recorded Sex Assigned at Not on file Legal Sex Female 5:17 AM CLIENT RELATIONS SPECIALIST Gender Identity Not on file Sexual Orientation Not on file documented as of this encounter Plan of Treatment Not on file documented as of this encounter Visit Diagnoses Diagnosis Iron deficiency anemia, unspecified- Primary Other and unspecified adverse effect of drug, medicinal and biological substance documented in this encounter Care Teams Sodder Relationship Specialty Start Date End Date Oleg Hamilton MD PCP - General 06/04/04 documented as of this encounter
--- OUTSIDE RECORDS SUMMARY | 2024-10-24 17:16 | XMS_ITS | Encounter Summary ---
Author Organization [facility] Address [address] [place] [address] Care Team Providers Care Cut Off Worker Name Role Phone Oleg Hamilton MD Primary Care Provider +1- [phone] Encounter Details Date Type Department Care Team (Late st Contact Info) Description 03/16/2005 Outpatient Historical [facility] Sidney Cortés MD NO ADDRESS ON FILE Social History Tobacco Use Types Packs/Day Years Used Date Smoking Tobacco: Never Assessed Comments Unknown Sex and Gender Information Value Date Recorded Sex Assigned at Not on file Legal Sex Female 5:17 AM KITCHEN OPERATOR Gender Identity Not on file Sexual Orientation Not on file documented as of this encounter Plan of Treatment Not on file documented as of this encounter Visit Diagnoses Not on filedocumented in this encounter Care Teams Cut Off Worker Relationship Specialty Start Date End Date Oleg Hamilton MD PCP - General 06/04/04 documented as of this encounter
--- OUTSIDE RECORDS SUMMARY | 2024-10-24 17:16 | XMS_ITS | Encounter Summary ---
Author Organization [facility] Address [address] [place] [address] Care Team Providers Care Textile Stylist Name Role Phone Oleg Hamilton MD Primary Care Provider +1- [phone] Encounter Details Date Type Department Care Team (Latest Contact Info) Description 07/28/2006 Outpatient Historical [facility] [address] [place] [address] [address] [place] [address] Bobby Lopez MD NO ADDRESS ON FILE Unspecified Iron Deficiency Anemia (Primary Dx); Adv Eff Med/Biol NEC/NOS; Diarrhea Social History Tobacco Use Types Packs/Day Years Used Date Smoking Tobacco: Never Assessed Comments Unknown Sex and Gender Information Value Date Recorded Sex Assigned at Not on file Legal Sex Female 5:17 AM QUALITY ASSURANCE SPECIALIST Gender Identity Not on file Sexual Orientation Not on file documented as of this encounter Plan of Treatment Not on file documented as of this encounter Visit Diagnoses Diagnosis Iron deficiency anemia, unspecified- Primary Unspecified adverse effect of other drug, medicinal and biological substance(995.29) Unspecified adverse effect of other drug, medicinal and biological substance Diarrhea documented in this encounter Care Teams Textile Stylist Relationship Specialty Start Date End Date Oleg Hamilton MD PCP - General 06/04/04 documented as of this encounter
--- OUTSIDE RECORDS SUMMARY | 2024-10-24 17:16 | XMS_ITS | Encounter Summary ---
Author Organization [facility] Address [address] [place] [address] Care Team Providers Care Track Vehicle Repairer Name Role Phone Oleg Hamilton MD Primary Care Provider +1- [phone] Encounter Details Date Type Department Care Team (Latest Contact Info) Description 05/31/2006 Outpatient [facility] [address] [place] [address] [facility] [address] [place] [address] Sidney Cortés MD NO ADDRESS ON FILE Disorders of Sacrum (Primary Dx) Social History Tobacco Use Types Packs/Day Years Used Date Smoking Tobacco: Never Assessed Comments Unknown Sex and Gender Information Value Date Recorded Sex Assigned at Not on file Legal Sex Female 5:17 AM CLOTHING ROOM SUPERVISOR Gender Identity Not on file Sexual Orientation Not on file documented as of this encounter Plan of Treatment Not on file documented as of this encounter Visit Diagnoses Diagnosis Disorders of sacrum- Primary documented in this encounter Care Teams Track Vehicle Repairer Relationship Specialty Start Date End Date Oleg Hamilton MD PCP - General 06/04/04 documented as of this encounter
--- OUTSIDE RECORDS SUMMARY | 2024-10-24 17:16 | XMS_ITS | Encounter Summary ---
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
--- OUTSIDE RECORDS SUMMARY | 2024-10-24 17:16 | XMS_ITS | Encounter Summary ---
Author Organization [facility] Address [address] [place] [address] Care Team Providers Care Speech And Language Assistant Name Role Phone Oleg Hamilton MD Primary Care Provider +1- [phone] Encounter Details Date Type Department Care Team ([facility] st Contact Info) Description 06/21/2005 Outpatient [facility] Physical Therapy Services [place] [address] [facility] [address] [place] [address] Cruz Cortés MD [address] [facility] [address] [place], [place] [id number] PHYSICAL THERAPY NEC (Primary Dx) Social History Tobacco Use Types Packs/Day Years Used Date Smoking Tobacco: Never Assessed Comments Unknown Sex and Gender Information Value Date Recorded Sex Assigned at Not on file Legal Sex Female 5:17 AM HARBOR MASTER Gender Identity Not on file Sexual Orientation Not on file documented as of this encounter Plan of Treatment Not on file documented as of this encounter Visit Diagnoses Diagnosis Other physical therapy- Primary documented in this encounter Care Teams Speech And Language Assistant Relationship Specialty Start Date End Date Oleg Hamilton MD PCP - General 06/04/04 documented as of this encounter
--- OUTSIDE RECORDS SUMMARY | 2024-10-24 17:16 | XMS_ITS | Encounter Summary ---
Author Organization [facility] Address [address] [place] [address] Care Team Providers Care Customer Relations Advisor Name Role Phone Oleg Hamilton MD Primary Care Provider +1- [phone] Encounter Details Date Type Department Care Team (Latest Contact Info) Description 05/13/2005 Outpatient Historical [facility] [address] [place] [address] Sidney Cortés MD NO ADDRESS ON FILE LUMB/LUMBOSAC DISC DEGEN (Primary Dx); LUMBAGO Social History Tobacco Use Types Packs/Day Years Used Date Smoking Tobacco: Never Assessed Comments Unknown Sex and Gender Information Value Date Recorded Sex Assigned at Not on file Legal Sex Female 5:17 AM BIOPROCESS DEVELOPMENT ENGINEER Gender Identity Not on file Sexual Orientation Not on file documented as of this encounter Plan of Treatment Not on file documented as of this encounter Visit Diagnoses Diagnosis Degeneration of lumbar or lumbosacral intervertebral disc- Primary Lumbago documented in this encounter Care Teams Customer Relations Advisor Relationship Specialty Start Date End Date Oleg Hamilton MD PCP - General 06/04/04 documented as of this encounter
--- OUTSIDE RECORDS SUMMARY | 2024-10-24 17:16 | XMS_ITS | Encounter Summary ---
Author Organization [facility] Address [address] [place] [address] Care Team Providers Care Poultry Killer Name Role Phone Oleg Hamilton MD Primary Care Provider +1- [phone] Encounter Details Date Type Department Care Team (Latest Contact Info) Description 07/25/2006 Outpatient Historical [facility] Internal Medicine- [place] [address] [facility] [address] [place] [address] Oleg Hamilton MD [address] [place] [address] Headache (Primary Dx); Nausea with Vomiting; Fever; Diarrhea Social History Tobacco Use Types Packs/Day Years Used Date Smoking Tobacco: Never Assessed Comments Unknown Sex and Gender Information Value Date Recorded Sex Assigned at Not on file Legal Sex Female 5:17 AM SENIOR CORE JAVA DEVELOPER Gender Identity Not on file Sexual Orientation Not on file documented as of this encounter Plan of Treatment Not on file documented as of this encounter Visit Diagnoses Diagnosis Headache(784.0)- Primary Headache Nausea with vomiting Fever and other physiologic disturbances of temperature regulation Diarrhea documented in this encounter Care Teams Poultry Killer Relationship Specialty Start Date End Date Oleg Hamilton MD PCP - General 06/04/04 documented as of this encounter
--- OUTSIDE RECORDS SUMMARY | 2024-10-24 17:16 | XMS_ITS | Encounter Summary ---
Author Organization [facility] Address [address] [place] [address] Care Team Providers Care Pan Pusher Name Role Phone Oleg Hamilton MD Primary Care Provider +1- [phone] Encounter Details Date Type Department Care Team (Latest Contact Info) Description 02/03/2005 Outpatient [facility] [address] [place] [address] [address] [place] [address] Jimi Adams MD [address] [place] [address] IRON DEFIC ANEMIA NOS (Primary Dx) Social History Tobacco Use Types Packs/Day Years Used Date Smoking Tobacco: Never Assessed Comments Unknown Sex and Gender Information Value Date Recorded Sex Assigned at Not on file Legal Sex Female 5:17 AM WAX SPECIALIST Gender Identity Not on file Sexual Orientation Not on file documented as of this encounter Plan of Treatment Not on file documented as of this encounter Visit Diagnoses Diagnosis Iron deficiency anemia, unspecified- Primary documented in this encounter Care Teams Pan Pusher Relationship Specialty Start Date End Date Oleg Hamilton MD PCP - General 06/04/04 documented as of this encounter
--- OUTSIDE RECORDS SUMMARY | 2024-10-24 17:16 | XMS_ITS | Encounter Summary ---
Author Organization [facility] Address [address] [place] [address] Care Team Providers Care Swimming Teacher Name Role Phone Oleg Hamilton MD Primary Care Provider +1- [phone] Encounter Details Date Type Department Care Team (Latest Contact Info) Description 01/11/2005 Outpatient Historical [facility] Internal Medicine- [place] [address] [facility] [address] [place] [address] Oleg Hamilton MD [address] [place] [address] LUMBAGO (Primary Dx); HYPERLIPIDEMIA NEC/NOS; DERMATITIS NOS Social History Tobacco Use Types Packs/Day Years Used Date Smoking Tobacco: Never Assessed Comments Unknown Sex and Gender Information Value Date Recorded Sex Assigned at Not on file Legal Sex Female 5:17 AM KITCHEN STEWARD Gender Identity Not on file Sexual Orientation Not on file documented as of this encounter Plan of Treatment Not on file documented as of this encounter Visit Diagnoses Diagnosis Lumbago- Primary Other and unspecified hyperlipidemia Contact dermatitis and other eczema, due to unspecified cause documented in this encounter Care Teams Swimming Teacher Relationship Specialty Start Date End Date Oleg Hamilton MD PCP - General 06/04/04 documented as of this encounter
--- OUTSIDE RECORDS SUMMARY | 2024-10-24 17:16 | XMS_ITS | Encounter Summary ---
Author Organization [facility] Address [address] [place] [address] Care Team Providers Care Family Program Specialist Name Role Phone Oleg Hamilton MD Primary Care Provider +1- [phone] Encounter Details Date Type Department Care Team (Latest Contact Info) Description 07/01/2005 Outpatient Historical [facility] [address] [place] [address] [address] [place] [address] Jimi Adams MD [address] [place] [address] IRON DEFIC ANEMIA NOS (Primary Dx); ADV EFFECT MED/BIOL SUB NOS Social History Tobacco Use Types Packs/Day Years Used Date Smoking Tobacco: Never Assessed Comments Unknown Sex and Gender Information Value Date Recorded Sex Assigned at Not on file Legal Sex Female 5:[address] REGISTRAR Gender Identity Not on file Sexual Orientation Not on file documented as of this encounter Plan of Treatment Not on file documented as of this encounter Visit Diagnoses Diagnosis Iron deficiency anemia, unspecified- Primary Other and unspecified adverse effect of drug, medicinal and biological substance documented in this encounter Care Teams Family Program Specialist Relationship Specialty Start Date End Date Oleg Hamilton MD PCP - General 06/04/04 documented as of this encounter
--- OUTSIDE RECORDS SUMMARY | 2024-10-24 17:16 | XMS_ITS | Encounter Summary ---
Author Organization [facility] Address [address] [place] [address] Care Team Providers Care Kaiako Kohanga Reo Name Role Phone Oleg Hamilton MD Primary Care Provider +1- [phone] Encounter Details Date Type Department Care Team (Late st Contact Info) Description 04/28/2005 Outpatient Historical [facility] Social History Tobacco Use Types Packs/Day Years Used Date Smoking Tobacco: Never Assessed Comments Unknown Sex and Gender Information Value Date Recorded Sex Assigned at Not on file Legal Sex Female 5:17 AM PHP MYSQL DEVELOPER Gender Identity Not on file Sexual Orientation Not on file documented as of this encounter Plan of Treatment Not on file documented as of this encounter Visit Diagnoses Not on filedocumented in this encounter Care Teams Kaiako Kohanga Reo Relationship Specialty Start Date End Date Oleg Hamilton MD PCP - General 06/04/04 documented as of this encounter
--- OUTSIDE RECORDS SUMMARY | 2024-10-24 17:16 | XMS_ITS | Encounter Summary ---
Author Organization [facility] Address [address] [place] [address] Care Team Providers Care Loom Changer Name Role Phone Oleg Hamilton MD Primary Care Provider +1- [phone] Encounter Details Date Type Department Care Team (Latest Contact Info) Description 08/04/[address] [facility] Cancer and Hematology [address] [place] [address] [address] [place] [address] Jimi Adams MD [address] [place] [address] Unspecified Iron Deficiency Anemia (Primary Dx) Social History Tobacco Use Types Packs/Day Years Used Date Smoking Tobacco: Never Assessed Comments Unknown Sex and Gender Information Value Date Recorded Sex Assigned at Not on file Legal Sex Female 5:17 AM DESIGN ASSISTANT Gender Identity Not on file Sexual Orientation Not on file documented as of this encounter Plan of Treatment Not on file documented as of this encounter Visit Diagnoses Diagnosis Iron deficiency anemia, unspecified- Primary documented in this encounter Care Teams Loom Changer Relationship Specialty Start Date End Date Oleg Hamilton MD PCP - General 06/04/04 documented as of this encounter
--- OUTSIDE RECORDS SUMMARY | 2024-10-24 17:16 | XMS_ITS | Encounter Summary ---
Author Organization [facility] Address [address] [place] [address] Care Team Providers Care Fried Cake Maker Name Role Phone Oleg Hamilton MD Primary Care Provider +1- [phone] Encounter Details Date Type Department Care Team (Late st Contact Info) Description 06/14/2005 Outpatient Historical [facility] Social History Tobacco Use Types Packs/Day Years Used Date Smoking Tobacco: Never Assessed Comments Unknown Sex and Gender Information Value Date Recorded Sex Assigned at Not on file Legal Sex Female 5:17 AM MILITARY LAWYER Gender Identity Not on file Sexual Orientation Not on file documented as of this encounter Plan of Treatment Not on file documented as of this encounter Visit Diagnoses Not on filedocumented in this encounter Care Teams Fried Cake Maker Relationship Specialty Start Date End Date Oleg Hamilton MD PCP - General 06/04/04 documented as of this encounter
--- OUTSIDE RECORDS SUMMARY | 2024-10-24 17:16 | XMS_ITS | Encounter Summary ---
Author Organization [facility] Address [address] [place] [address] Care Team Providers Care Sheet Folder Name Role Phone Oleg Hamilton MD Primary Care Provider +1- [phone] Encounter Details Date Type Department Care Team (Latest Contact Info) Description 07/01/2005 Outpatient Historical [facility] [address] [place] [address] [address] [place] [address] Jimi Adams MD [address] [place] [address] IRON DEFIC ANEMIA NOS (Primary Dx) Social History Tobacco Use Types Packs/Day Years Used Date Smoking Tobacco: Never Assessed Comments Unknown Sex and Gender Information Value Date Recorded Sex Assigned at Not on file Legal Sex Female 5:17 AM AMMONIA PRINT OPERATOR Gender Identity Not on file Sexual Orientation Not on file documented as of this encounter Plan of Treatment Not on file documented as of this encounter Visit Diagnoses Diagnosis Iron deficiency anemia, unspecified- Primary documented in this encounter Care Teams Sheet Folder Relationship Specialty Start Date End Date Oleg Hamilton MD PCP - General 06/04/04 documented as of this encounter
--- OUTSIDE RECORDS SUMMARY | 2024-10-24 17:16 | XMS_ITS | Encounter Summary ---
Author Organization [facility] Address [address] [place] [address] Care Team Providers Care Community Health Nurse Name Role Phone Oleg Hamilton MD Primary Care Provider +1- [phone] Encounter Details Date Type Department Care Team (Latest Contact Info) Description 04/14/2005 Outpatient Historical [facility] [address] [place] [address] Sidney Cortés MD NO ADDRESS ON FILE LUMB/LUMBOSAC DISC DEGEN (Primary Dx); LUMBAGO Social History Tobacco Use Types Packs/Day Years Used Date Smoking Tobacco: Never Assessed Comments Unknown Sex and Gender Information Value Date Recorded Sex Assigned at Not on file Legal Sex Female 5:17 AM WILDLIFE REMOVAL SPECIALIST Gender Identity Not on file Sexual Orientation Not on file documented as of this encounter Plan of Treatment Not on file documented as of this encounter Visit Diagnoses Diagnosis Degeneration of lumbar or lumbosacral intervertebral disc- Primary Lumbago documented in this encounter Care Teams Community Health Nurse Relationship Specialty Start Date End Date Oleg Hamilton MD PCP - General 06/04/04 documented as of this encounter
--- OUTSIDE RECORDS SUMMARY | 2024-10-24 17:16 | XMS_ITS | Encounter Summary ---
Author Organization [facility] Address [address] [place] [address] Care Team Providers Care Green Marketing Analyst Name Role Phone Oleg Hamilton MD Primary Care Provider +1- [phone] Encounter Details Date Type Department Care Team (Latest Contact Info) Description 02/24/[address] [facility] Gen Spec Surg [address] [place] [address] Hernan Birmingham MD [facility] [id number] Encounter for Long-Term (Current) Use of Other Medications (Primary Dx); Unspecified Iron Deficiency Anemia; Follow-Up Examination, Following Unspecified Surgery Social History Tobacco Use Types Packs/Day Years Used Date Smoking Tobacco: Never Assessed Comments Unknown Sex and Gender Information Value Date Recorded Sex Assigned at Not on file Legal Sex Female 5:17 AM SILVERWARE SUPERVISOR Gender Identity Not on file Sexual Orientation Not on file documented as of this encounter Plan of Treatment Not on file documented as of this encounter Visit Diagnoses Diagnosis Encounter for long-term (current) use of other medications- Primary Iron deficiency anemia, unspecified Follow-up examination, following unspecified surgery documented in this encounter Care Teams Green Marketing Analyst Relationship Specialty Start Date End Date Oleg Hamilton MD PCP - General 06/04/04 documented as of this encounter
--- OUTSIDE RECORDS SUMMARY | 2024-10-24 17:16 | XMS_ITS | Encounter Summary ---
Author Organization [facility] Address [address] [place] [address] Care Team Providers Care Occasional Babysitter Name Role Phone Oleg Hamilton MD Primary Care Provider +1- [phone] Encounter Details Date Type Department Care Team (Latest Contact Info) Description 08/25/2006 Outpatient Historical [facility] [address] [place] [address] [address] [place] [address] Tiara Foley, BASKET HAND WEAVER NO ADDRESS ON FILE Unspecified Iron Deficiency Anemia (Primary Dx) Social History Tobacco Use Types Packs/Day Years Used Date Smoking Tobacco: Never Assessed Comments Unknown Sex and Gender Information Value Date Recorded Sex Assigned at Not on file Legal Sex Female 5:17 AM FOOT WORKER Gender Identity Not on file Sexual Orientation Not on file documented as of this encounter Plan of Treatment Not on file documented as of this encounter Visit Diagnoses Diagnosis Iron deficiency anemia, unspecified- Primary documented in this encounter Care Teams Occasional Babysitter Relationship Specialty Start Date End Date Oleg Hamilton MD PCP - General 06/04/04 documented as of this encounter
--- OUTSIDE RECORDS SUMMARY | 2024-10-24 17:16 | XMS_ITS | Encounter Summary ---
Author Organization [facility] Address [address] [place] [address] Care Team Providers Care Ammonium Nitrate Neutralizer Name Role Phone Oleg Hamilton MD Primary Care Provider +1- [phone] Encounter Details Date Type Department Care Team (Latest Contact Info) Description 08/11/2006 Outpatient Historical [facility] [address] [place] [address] [address] [place] [address] Angy Kwong MD NO ADDRESS ON FILE Unspecified Iron Deficiency Anemia (Primary Dx); Adv Eff Med/Biol NEC/NOS Social History Tobacco Use Types Packs/Day Years Used Date Smoking Tobacco: Never Assessed Comments Unknown Sex and Gender Information Value Date Recorded Sex Assigned at Not on file Legal Sex Female 5:17 AM MEDICAL OFFICER Gender Identity Not on file Sexual Orientation Not on file documented as of this encounter Plan of Treatment Not on file documented as of this encounter Visit Diagnoses Diagnosis Iron deficiency anemia, unspecified- Primary Unspecified adverse effect of other drug, medicinal and biological substance(995.29) Unspecified adverse effect of other drug, medicinal and biological substance documented in this encounter Care Teams Ammonium Nitrate Neutralizer Relationship Specialty Start Date End Date Oleg Hamilton MD PCP - General 06/04/04 documented as of this encounter
--- OUTSIDE RECORDS SUMMARY | 2024-10-24 17:16 | XMS_ITS | Encounter Summary ---
Author Organization [facility] Address [address] [place] [address] Care Team Providers Care Soil Science Teacher Name Role Phone Oleg Hamilton MD Primary Care Provider +1- [phone] Encounter Details Date Type Department Care Team (Latest Contact Info) Description 11/10/2004 Outpatient Historical [facility] Physical Therapy [address] [place] [address] Sidney Cortés MD NO ADDRESS ON FILE LUMBAGO (Primary Dx) Social History Tobacco Use Types Packs/Day Years Used Date Smoking Tobacco: Never Assessed Comments Unknown Sex and Gender Information Value Date Recorded Sex Assigned at Not on file Legal Sex Female 5:17 AM HONING MACHINE SET UP OPERATOR TOOL Gender Identity Not on file Sexual Orientation Not on file documented as of this encounter Plan of Treatment Not on file documented as of this encounter Visit Diagnoses Diagnosis Lumbago- Primary documented in this encounter Care Teams Soil Science Teacher Relationship Specialty Start Date End Date Oleg Hamilton MD PCP - General 06/04/04 documented as of this encounter
--- OUTSIDE RECORDS SUMMARY | 2024-10-24 17:16 | XMS_ITS | Encounter Summary ---
Author Organization [facility] Address [address] [place] [address] Care Team Providers Care Medical Records Field Technician Name Role Phone Oleg Hamilton MD Primary Care Provider +1- [phone] Encounter Details Date Type Department Care Team (Late st Contact Info) Description 02/20/2006 Emergency [facility] Emergency Department [address] [place] [address] Vipul Zavaleta, DO NO ADDRESS ON FILE Abdominal Pain, Unspecified Site (Primary Dx) Social History Tobacco Use Types Packs/Day Years Used Date Smoking Tobacco: Never Assessed Comments Unknown Sex and Gender Information Value Date Recorded Sex Assigned at Not on file Legal Sex Female 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 CLEANERS Gender Identity Not on file Sexual Orientation Not on file documented as of this encounter Plan of Treatment Not on file documented as of this encounter Procedures Procedure Name Priority Date/Time Associated Diagnosis Comments CBC WITH DIFFERENTIAL Routine 02/20/2006 10:33 PM CDT COMPREHENSIVE METABOLIC PANEL Routine 02/20/2006 10:33 PM CDT URINALYSIS MICROSCOPY ONLY Routine 02/20/2006 8:53 PM CDT URINALYSIS W/REFLEX MICROSCOPIC Routine 02/20/2006 8:[address] ABDOMEN PELVIS W CONTRAST Routine 02/20/2006 8:35 PM CDT documented in this encounter Results * (ABNORMAL) COMPREHENSIVE METABOLIC PANEL (02/20/2006 10:33 PM CDT) GLUCOSE 91 70 - 110 mg/dL INTERFACE SYSTEM BUN 15 7 - 17 mg/dL INTERFACE SYSTEM CREATININE 0.8 0.7 - 1.2 mg/dL INTERFACE SYSTEM SODIUM 145 136 - 145 mEq/L INTERFACE SYSTEM POTASSIUM 3.7 3.5 - 5.0 mEq/L INTERFACE SYSTEM CHLORIDE 111(H) 95 - 110 mEq/L INTERFACE SYSTEM CO2 29 22 - 32 mmol/l INTERFACE SYSTEM ANION GAP 9 9 - 20 mEq/L INTERFACE SYSTEM OSMOLALITY, CALCULATED 297(H) 275 - 295 mOsm/Kg INTERFACE SYSTEM CALCIUM 9.1 8.4 - 10.5 mg/dL INTERFACE SYSTEM TOTAL PROTEIN 5.9(L) 6.3 - 8.2 g/dL INTERFACE SYSTEM ALBUMIN 3.6 3.5 - 5.0 g/dL INTERFACE SYSTEM GLOBULIN (CALC) 2.3(L) 2.4 - 3.9 g/dL INTERFACE SYSTEM ALBUMIN/GLOBULIN RATIO 1.6 1.0 - 2.3 INTERFACE SYSTEM ALKALINE PHOSPHATASE 74 25 - 100 U/L INTERFACE SYSTEM Comment: As of 05 the [facility] has changed testing methods. The new reference range is 25-100 The old referance range was 38-126 AST 17 8 - 33 U/L INTERFACE SYSTEM Comment: As of 05 the [facility] has changed testing methods. The new reference range is 8-33 The old referance range was Males 17-59 Females 14-36 ALT 11 4 - 36 IU/L INTERFACE SYSTEM Comment: As of 05 the [facility] has changed testing methods. The new reference range is 4-36 The old referance range was Males 21-72 Females 9-52 BILIRUBIN TOTAL 0.1(L) 0.3 - 1.2 mg/dL INTERFACE SYSTEM Comment: As of 05 the [facility] has changed testing methods. The new reference range is 0.3-1.2 The old referance range was 0.2-1.4 02/20/2006 10:3 3 PM CDT Vipul C Zavaleta DO CHEMISTRY ORDERABLES Final Result Performing Organization Address City/[facility] Co de Phone Number INTERFACE SYSTEM Refer to clinic/hospital department * (ABNORMAL) CBC WITH DIFFERENTIAL (02/20/2006 10:33 PM CDT) WBC 8.8 4.5 - 11.0 K/ul INTERFACE SYSTEM RBC 3.89(L) 4.20 - 5.40 Mil/ul INTERFACE SYSTEM HEMOGLOBIN 9.3(L) 12.0 - 16.0 g/dL INTERFACE SYSTEM HEMATOCRIT 30.9(L) 36.0 - 46.0 % INTERFACE SYSTEM MCV 79.4(L) 84.0 - 103.0 Fl INTERFACE SYSTEM MCH 23.9(L) 27.0 - 34.0 pg INTERFACE SYSTEM MCHC 30.1 30.0 - 35.0 g/dL INTERFACE SYSTEM RDW 16.8(H) 11.0 - 14.5 % INTERFACE SYSTEM PLATELETS 504(H) 140 - 440 K/ul INTERFACE SYSTEM MPV 9.3 8.9 - 12.8 Fl INTERFACE SYSTEM NEUTROPHILS 56.2 42.2 - 75.2 % INTERFACE SYSTEM LYMPHOCYTES 30.8 24.0 - 44.0 % INTERFACE SYSTEM MONOCYTES 8.5 2.0 - 10.0 % INTERFACE SYSTEM EOSINOPHILS 4.2 0.0 - 7.0 % INTERFACE SYSTEM BASOPHILS 0.3 0.0 - 1.0 % INTERFACE SYSTEM NEUTROPHIL ABSOLUTE 5.0 2.0 - 8.0 K/uL INTERFACE SYSTEM LYMPHOCYTE ABSOLUTE 2.7 1.2 - 4.0 K/ul INTERFACE SYSTEM MONOCYTE ABSOLUTE 0.8(H) 0.1 - 0.6 K/ul INTERFACE SYSTEM EOSINOPHIL ABSOLUTE 0.4 0.0 - 0.7 K/ul INTERFACE SYSTEM BASOPHILS ABSOLUTE 0.0 0.0 - 0.2 K/ul INTERFACE SYSTEM 02/20/2006 10:3 3 PM CDT Vipul Zavaleta DO HEMATOLOGY ORDERABLES Bela l Result Performing Organization Address City/State/[facility] Co de Phone Number INTERFACE SYSTEM Refer to clinic/hospital department * URINALYSIS MICROSCOPY ONLY (02/20/2006 8:53 PM CDT) WBC URINE None Seen 0 - 2 INTERFACE SYSTEM RBC UA None Seen 0 - 2 INTERFACE SYSTEM HYALINE CAST None Seen 0 - 2 INTERFA CE SYSTEM BACTERIA UA None Seen None Seen INTERFAC E SYSTEM 02/20/2006 8:53 PM CDT Physician Sj Ed URINE ORDERABLES Final Result Performing Organization Address [facility] Phone Number INTERFACE SYSTEM Refer to clinic/hospital department * (ABNORMAL) URINALYSIS (02/20/2006 8:53 PM CDT) COLOR UA Yellow Straw INTERFACE SYSTEM CLARITY UA Clear Clear INTERFACE SYSTEM LEUKOCYTE ESTERASE UA NEGATIVE NEGATIVE INTERFACE SYSTEM NITRITE UA NEGATIVE NEGATIVE INTERFACE SYSTEM PH UA 5.5 5.0 - 9.0 INTERFACE SYSTEM PROTEIN UA NEGATIVE NEGATIVE INTERFACE SYSTEM Comment: As of 04 positive protein results obtained on routine urinalysis will not be confirmed by sulfosalicylic acid (SSA) precipitation. Current methodology for protein detection is highly sensitive for detection of albumin; therefore, confirmation is not necessary. GLUCOSE UA NEGATIVE NEGATIVE INTERFACE SYSTEM KETONES UA NEGATIVE NEGATIVE INTERFACE SYSTEM UROBILINOGEN UA 0.2 0.2 INTE RFACE SYSTEM BILIRUBIN UA NEGATIVE NEGATIVE INTERFA CE SYSTEM BLOOD UA NEGATIVE NEGATIVE INTERFACE SYSTEM SPECIFIC GRAVITY UA 1.015 1.005 - 1.030 INTERFACE SYSTEM MICRO EXAM Yes(A) No INTERFACE SYSTEM 02/20/2006 8:53 PM CDT Physician Sj Ed URINE ORDERABLES Final Result Performing Organization Address [facility] Phone Number INTERFACE SYSTEM Refer to clinic/hospital department * CT ABDOMEN PELVIS W CONTRAST (02/20/2006 8:35 PM CDT) Anatomical Region Laterality Modality Abdomen Other 02/20/2006 8:35 PM CDT Addenda This result is currently undergoing an addendum. Addendum by Provider, Historical on 03/21/2009 6:31 PM CLEANERS Addendum to Findings Section Above: There is right lower quadrant/central mesenteric lymphadenopathy with nodes measuring up to 1.4 cmshort axis. There are several small lymph nodes adjacent to the area of circumferential muralthickening of the distal stomach on images 22-27. Addendum to Impression Section Above: Borderline lymphadenopathy adjacent to the distal thickened stomach and also in the mesentery. Findingsraise the possibility of underlying infectious, inflammatory, or neoplastic disease, andthree-month followup is recommended in the absence of tissue diagnosis. - Dictated By: Peyman Thomas M.D. Electronically Signed By: Peyman Thomas M.D. Date Signed: 02/21/06 JAW Narrative 02/20/2006 8:[address] Abdomen and Pelvis: Technique: CT of the abdomen and pelvis was performed following the administration of oral andintravenous contrast 75 mL Optiray 350. History: Abdominal pain. Findings: Comparison to prior exam dated 05/08/2004. The liver is normal in size with no focal lesion evident. There is an area of relative decreasedattenuation in the left hepatic lobe adjacent to the fissure of the ligamentum teres most likelyrepresenting focal fatty infiltration. Compared to the prior exam, there has been intervalappearance of minimal dilatation of intrahepatic bile ducts with evidence of prior cholecystectomyagain noted. There is thickening of the antrum/pylorus of the stomach circumferentially with noevidence of obstruction. The spleen, pancreas, adrenals, and right kidney are unremarkable. Tinysubcortical hypodensity in the lower pole left kidney is unchanged. There are dilated loops ofsmall bowel in the central lower abdomen and pelvis with normal caliber loops located both proximaland distal to this segment. There is no evidence of free fluid or fat infiltration. No wallthickening seen in the distended loops. There is no evidence of adenopathy or ascites. There is asmall sliding hiatal hernia. Areas of minimal linear scar versus atelectasis in the lung bases. They are mild degenerative changes present in the spine. There is a 2 mm hypodensity in theanterior segment of the right hepatic lobe on image 11 which is unchanged compared to the priorstudy. Impression: Segmentally dilated lower abdominal small bowel loops with normal caliber loops bothproximally and distally, constellation of findings are suspicious for mild closed loop ofobstruction. Minimal intrahepatic biliary dilatation, slightly increased over the prior exam withevidence of prior cholecystectomy again noted. Circumferential mural thickening of thepyloric/antral region of the stomach. Significant pathology such as inflammatory disease orneoplasm cannot be excluded. Endoscopic or fluoroscopic evaluation is recommended. - Dictated By: Peyman Thomas M.D. Electronically Signed By: Peyman Thomas M.D. Date Signed: 02/21/06 [facility] Procedure Note 03/21/2009 CT Abdomen and Pelvis: Technique: CT of the abdomen and pelvis was performed following the administration oforal andintravenous contrast 75 mL Optiray 350. History: Abdominal pain. Findings: Comparison to prior exam dated 05/08/2004. The liver is normal in size with no focal lesion evident. There is an areaof relative decreasedattenuation in the left hepatic lobe adjacent to the fissure ofthe ligamentum teres most likelyrepresenting focal fatty infiltration. Compared to the prior exam,there has been intervalappearance of minimal dilatation of intrahepatic bile ducts withevidence of prior cholecystectomyagain noted. There is thickening of the antrum/pylorus ofthe stomach circumferentially with noevidence of obstruction. The spleen, pancreas, adrenals, and rightkidney are unremarkable. Tinysubcortical hypodensity in the lower pole left kidney is unchanged.There are dilated loops ofsmall bowel in the central lower abdomen and pelvis with normal caliber loopslocated both proximaland distal to this segment. There is no evidence of free fluid or fat infiltration.No wallthickening seen in the distended loops. There is no evidence of adenopathy or ascites. There isasmall sliding hiatal hernia. Areas of minimal linear scar versus atelectasis in the lung bases. They are mild degenerative changes present in the spine. There is a 2 mmhypodensity in theanterior segment of the right hepatic lobe on image 11 which is unchanged comparedto the priorstudy. Impression: Segmentally dilated lower abdominal small bowel loops with normal caliberloops bothproximally and distally, constellation of findings are suspicious for mild closed loopofobstruction. Minimal intrahepatic biliary dilatation, slightly increased over the prior examwithevidence of prior cholecystectomy again noted. Circumferential mural thickening ofthepyloric/antral region of the stomach. Significant pathology such as inflammatory disease orneoplasmcannot be excluded. Endoscopic or fluoroscopic evaluation is recommended. - Dictated By: Peyman Thomas M.D. Electronically Signed By: Peyman Thomas M.D. Date Signed: 02/21/06 [facility] Vipul Zavaleta DO CT ORDERABLES Edited documented in this encounter Visit Diagnoses Diagnosis Abdominal pain, unspecified site- Primary documented in this encounter Care Teams Medical Records Field Technician Relationship Specialty Start Date End Date Oleg Hamilton MD PCP - General 06/04/04 documented as of this encounter
--- OUTSIDE RECORDS SUMMARY | 2024-10-24 17:16 | XMS_ITS | Encounter Summary ---
Author Organization [facility] Address [address] [place] [address] Care Team Providers Care Exercise Science Internship Name Role Phone Oleg Hamilton MD Primary Care Provider +1- [phone] Encounter Details Date Type Department Care Team (Latest Contact Info) Description 01/26/2006 Outpatient [facility] [address] [place] [address] [facility] [address] [place] [address] Hernan Birmingham MD [address] [place] [address] Unspecified Iron Deficiency Anemia (Primary Dx) Social History Tobacco Use Types Packs/Day Years Used Date Smoking Tobacco: Never Assessed Comments Unknown Sex and Gender Information Value Date Recorded Sex Assigned at Not on file 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 Gender Identity Not on file Sexual Orientation Not on file documented as of this encounter Plan of Treatment Not on file documented as of this encounter Procedures Procedure Name Priority Date/Time Associated Diagnosis Comments POC SODIUM, POTASSIUM, AND H&H Routine 01/26/2006 7:25 AM CDT documented in this encounter Results * (ABNORMAL) POC ISTAT 3 (01/26/2006 7:25 AM CDT) SODIUM POC 140 136 - 145 mEq/L INTERFACE SYSTEM POTASSIUM POC 3.4(L) 3.5 - 5.0 mEq/L INTERFACE SYSTEM HEMATOCRIT POC 26.0(L) 36.0 - 46.0 % INTERFACE SYSTEM HEMOGLOBIN POC 9.0(L) 12.0 - 16.0 g/dL INTERFACE SYSTEM 01/26/2006 7:25 AM CDT [facility] Emre Birmingham MD POINT OF CARE TESTING Final Result INTERFACE SYSTEM Refer to clinic/hospital department documented in this encounter Visit Diagnoses Diagnosis Iron deficiency anemia, unspecified- Primary documented in this encounter Care Teams Exercise Science Internship Relationship Specialty Start Date End Date Oleg Hamilton MD PCP - General 06/04/04 documented as of this encounter
--- OUTSIDE RECORDS SUMMARY | 2024-10-24 17:16 | XMS_ITS | Encounter Summary ---
Author Organization [facility] Address [address] [place] [address] Care Team Providers Care Industry Consultant Name Role Phone Oleg Hamilton MD Primary Care Provider +1- [phone] Encounter Details Date Type Department Care Team ([facility] st Contact Info) Description 04/20/2005 Outpatient [facility] Physical Therapy Services [place] [address] [place] [address] Cruz Cortés MD [address] [facility] [address] [place], [place] [address] LUMBAGO (Primary Dx) Social History Tobacco Use Types Packs/Day Years Used Date Smoking Tobacco: Never Assessed Comments Unknown Sex and Gender Information Value Date Recorded Sex Assigned at Not on file 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
--- OUTSIDE RECORDS SUMMARY | 2024-10-24 17:16 | XMS_ITS | Encounter Summary ---
Author Organization [facility] Address [address] [place] [address] Care Team Providers Care Real Estate Appraiser Name Role Phone Oleg Hamilton MD Primary Care Provider +1- [phone] Encounter Details Date Type Department Care Team (Latest Contact Info) Description 07/14/2006 Outpatient Historical [facility] Cancer and Hematology [address] [place] [address] [address] [place] [address] Jimi Adams MD [address] [place] [address] Unspecified Iron Deficiency Anemia (Primary Dx); Adv Eff Med/Biol NEC/NOS Social History Tobacco Use Types Packs/Day Years Used Date Smoking Tobacco: Never Assessed Comments Unknown Sex and Gender Information Value Date Recorded Sex Assigned at Not on file 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
--- OUTSIDE RECORDS SUMMARY | 2024-10-24 17:16 | XMS_ITS | Encounter Summary ---
Author Organization [facility] Address [address] [place] [address] Care Team Providers Care Strategic Planning Analyst Name Role Phone Oleg Hamilton MD Primary Care Provider +1- [phone] Encounter Details Date Type Department Care Team (Late st Contact Info) Description 04/19/2005 Outpatient Historical [facility] Cancer and Hematology [address] [place] [address] [address] [place] [address] Social History Tobacco Use Types Packs/Day Years Used Date Smoking Tobacco: Never Assessed Comments Unknown Sex and Gender Information Value Date Recorded Sex Assigned at Not on file 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
--- OUTSIDE RECORDS SUMMARY | 2024-10-24 17:16 | XMS_ITS | Encounter Summary ---
Author Organization [facility] Address [address] [place] [address] Care Team Providers Care Stand Up Forklift Operator Name Role Phone Oleg Hamilton MD Primary Care Provider +1- [phone] Encounter Details Date Type Department Care Team (Latest Contact Info) Description 05/05/2006 Outpatient Historical [facility] Cancer and Hematology [address] [place] [address] [address] [place] [address] Jimi Adams MD [address] [place] [address] Unspecified Iron Deficiency Anemia (Primary Dx); Nausea Alone Social History Tobacco Use Types Packs/Day Years Used Date Smoking Tobacco: Never Assessed Comments Unknown Sex and Gender Information Value Date Recorded Sex Assigned at Not on file 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
--- OUTSIDE RECORDS SUMMARY | 2024-10-24 17:16 | XMS_ITS | Encounter Summary ---
Author Organization [facility] Address [address] [place] [address] Care Team Providers Care Money Examiner Name Role Phone Oleg Hamilton MD Primary Care Provider +1- [phone] Encounter Details Date Type Department Care Team (Latest Contact Info) Description 05/19/2006 Outpatient Historical [facility] Cancer and Hematology [address] [place] [address] [address] [place] [address] Jimi Adams MD [address] [place] [address] Unspecified Iron Deficiency Anemia (Primary Dx); Adv Eff Med/Biol NEC/NOS Social History Tobacco Use Types Packs/Day Years Used Date Smoking Tobacco: Never Assessed Comments Unknown Sex and Gender Information Value Date Recorded Sex Assigned at Not on file 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
--- OUTSIDE RECORDS SUMMARY | 2024-10-24 17:16 | XMS_ITS | Encounter Summary ---
Author Organization [facility] Address [address] [place] [address] Care Team Providers Care Receivable Clerk Name Role Phone Oleg Hamilton MD Primary Care Provider +1- [phone] Encounter Details Date Type Department Care Team (Latest Contact Info) Description 06/30/2006 Outpatient Historical [facility] Internal Medicine- [place] [address] [place] [address] Oleg Hamilton MD [address] [place] [address] Rash and Other Nonspecific Skin Eruption (Primary Dx); Other and Unspecified Hyperlipidemia Social History Tobacco Use Types Packs/Day Years Used Date Smoking Tobacco: Never Assessed Comments Unknown Sex and Gender Information Value Date Recorded Sex Assigned at Not on file 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
--- OUTSIDE RECORDS SUMMARY | 2024-10-24 17:16 | XMS_ITS | Encounter Summary ---
Author Organization [facility] Address [address] [place] [address] Care Team Providers Care Switchman Name Role Phone Oleg Hamilton MD Primary Care Provider +1- [phone] Encounter Details Date Type Department Care Team (Latest Contact Info) Description 01/31/2006 Outpatient [facility] [address] [place] [address] [address] [place] [address] Kait Ivory FNP NO ADDRESS ON FILE Unspecified Anemia (Primary Dx) Social History Tobacco Use Types Packs/Day Years Used Date Smoking Tobacco: Never Assessed Comments Unknown Sex and Gender Information Value Date Recorded Sex Assigned at Not on file Legal 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
--- OUTSIDE RECORDS SUMMARY | 2024-10-24 17:16 | XMS_ITS | Encounter Summary ---
Author Organization [facility] Address [address] [place] [address] Care Team Providers Care Rail Manager Name Role Phone Oleg Hamilton MD Primary Care Provider +1- [phone] Encounter Details Date Type Department Care Team (Latest Contact Info) Description 05/13/2005 Outpatient [facility] [address] [place] [address] [facility] [address] [place] [address] Sidney Cortés MD NO ADDRESS ON FILE LUMB/LUMBOSAC DISC DEGEN (Primary Dx) Social History Tobacco Use Types Packs/Day Years Used Date Smoking Tobacco: Never Assessed Comments Unknown Sex and Gender Information Value Date Recorded Sex Assigned at Not on file Legal Sex Female 5:17 AM RECOVERY RN Gender Identity Not on file Sexual Orientation Not on file documented as of this encounter Plan of Treatment Not on file documented as of this encounter Visit Diagnoses Diagnosis Degeneration of lumbar or lumbosacral intervertebral disc- Primary documented in this encounter Care Teams Rail Manager Relationship Specialty Start Date End Date Oleg Hamilton MD PCP - General 06/04/04 documented as of this encounter
--- OUTSIDE RECORDS SUMMARY | 2024-10-24 17:17 | XMS_ITS | Encounter Summary ---
Author Organization [facility] Address [address] [place] [address] Care Team Providers Care Rooming House Keeper Name Role Phone Oleg Hamilton MD Primary Care Provider +1- [phone] Encounter Details Date Type Department Care Team (Latest Contact Info) Description 09/20/2006 Outpatient [facility] [address] [place] [address] Sidney Cortés MD NO ADDRESS ON FILE Degeneration of Lumbar or Lumbosacral Intervertebral Disc (Primary Dx); Lumbago; Disorders of Sacrum Social History Tobacco Use Types Packs/Day Years Used Date Smoking Tobacco: Never Assessed Comments Unknown Sex and Gender Information Value Date Recorded Sex Assigned at Not on file 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
--- OUTSIDE RECORDS SUMMARY | 2024-10-24 17:17 | XMS_ITS | Encounter Summary ---
Author Organization [facility] Address [address] [place] [address] Care Team Providers Care Wood Turning Lathe Operator Name Role Phone Oleg Hamilton MD Primary Care Provider +1- [phone] Encounter Details Date Type Department Care Team (Late st Contact Info) Description 09/30/2004 Outpatient Historical [facility] Cancer and Hematology [address] [place] [address] [address] [place] [phone] Social History Tobacco Use Types Packs/Day Years Used Date Smoking Tobacco: Never Assessed Comments Unknown Sex and Gender Information Value Date Recorded Sex Assigned at Not on file Legal Sex Female 5:17 AM GERONTOLOGY AIDE Gender Identity Not on file Sexual Orientation Not on file documented as of this encounter Plan of Treatment Not on file documented as of this encounter Visit Diagnoses Not on filedocumented in this encounter Care Teams Wood Turning Lathe Operator Relationship Specialty Start Date End Date Oleg Hamilton MD PCP - General 06/04/04 documented as of this encounter
--- OUTSIDE RECORDS SUMMARY | 2024-10-24 17:17 | XMS_ITS | Encounter Summary ---
Author Organization [facility] Address [address] [place] [address] Care Team Providers Care Log Rider Name Role Phone Oleg Hamilton MD Primary Care Provider +1- [phone] Encounter Details Date Type Department Care Team (Latest Contact Info) Description 08/30/2005 Outpatient Historical [facility] Cancer and Hematology [address] [place] [address] [address] [place] [address] Jimi Adams MD [address] [place] [address] Unspecified Iron Deficiency Anemia (Primary Dx) Social History Tobacco Use Types Packs/Day Years Used Date Smoking Tobacco: Never Assessed Comments Unknown Sex and Gender Information Value Date Recorded Sex Assigned at Not on file Legal Sex Female 5:17 AM LIME SUPERVISOR Gender Identity Not on file Sexual Orientation Not on file documented as of this encounter Plan of Treatment Not on file documented as of this encounter Visit Diagnoses Diagnosis Iron deficiency anemia, unspecified- Primary documented in this encounter Care Teams Log Rider Relationship Specialty Start Date End Date Oleg Hamilton MD PCP - General 06/04/04 documented as of this encounter
--- OUTSIDE RECORDS SUMMARY | 2024-10-24 17:17 | XMS_ITS | Encounter Summary ---
Author Organization [facility] Address [address] [place] [address] Care Team Providers Care Dat Instructor Name Role Phone Oleg Hamilton MD Primary Care Provider +1- [phone] Encounter Details Date Type Department Care Team (Late st Contact Info) Description 05/08/2004 Inpatient Historical [facility] Hernan Birmingham MD [address] [id number] INTEST ADHES W OBSTR POST OP/INFECT (CMS/HCC) (Primary Dx) Social History Tobacco Use Types Packs/Day Years Used Date Smoking Tobacco: Never Assessed Comments Unknown Sex and Gender Information Value Date Recorded Sex Assigned at Not on file Legal Sex Female 5:17 AM INSURANCE COUNSELOR Gender Identity Not on file Sexual Orientation Not on file documented as of this encounter Plan of Treatment Not on file documented as of this encounter Procedures Procedure Name Priority Date/Time Associated Diagnosis Comments CBC WITH DIFFERENTIAL Routine 05/11/2004 5:25 AM INSURANCE COUNSELOR CBC WITH DIFFERENTIAL Routine 05/10/2004 5:15 AM INSURANCE COUNSELOR RETICULOCYTES Routine 05/10/2004 5:15 AM INSURANCE COUNSELOR LACTATE DEHYDROGENASE Routine 05/10/2004 5:15 AM INSURANCE COUNSELOR COMPREHENSIVE METABOLIC PANEL Routine 05/10/2004 5:15 AM INSURANCE COUNSELOR VITAMIN B12 AND FOLATE Routine 5 5:43 PM INSURANCE COUNSELOR IRON, TIBC, AND PERCENT SATURATION Routine 05/09/2004 5:43 PM INSURANCE COUNSELOR TSH Routine 05/09/2004 5:43 PM INSURANCE COUNSELOR FERRITIN Routine 05/09/2004 5:43 PM INSURANCE COUNSELOR CBC WITH DIFFERENTIAL Routine 05/09/2004 8:15 AM INSURANCE COUNSELOR CBC WITH DIFFERENTIAL Routine 05/09/2004 6:30 AM INSURANCE COUNSELOR KETONE, QUALITATIVE, URINE Routine 05/08/2004 8:39 PM INSURANCE COUNSELOR URINALYSIS W/REFLEX MICROSCOPIC Routine 05/08/2004 8:39 PM INSURANCE COUNSELOR CBC WITH DIFFERENTIAL Routine 05/08/2004 2:44 PM INSURANCE COUNSELOR LIPASE Routine 05/08/2004 2:44 PM INSURANCE COUNSELOR AMYLASE Routine 05/08/2004 2:44 PM INSURANCE COUNSELOR COMPREHENSIVE METABOLIC PANEL Routine 05/08/2004 2:44 PM INSURANCE COUNSELOR documented in this encounter Results * (ABNORMAL) CBC WITH DIFFERENTIAL (05/11/2004 5:25 AM INSURANCE COUNSELOR) WBC 8.6 4.5 - 11.0 K/ul INTERFACE SYSTEM RBC 3.40(L) 4.20 - 5.40 Mil/ul INTERFACE SYSTEM HEMOGLOBIN 6.6(L) 12.0 - 16.0 g/dL INTERFACE SYSTEM HEMATOCRIT 25.5(L) 36.0 - 46.0 % INTERFACE SYSTEM MCV 75.0(L) 84.0 - 103.0 Fl INTERFACE SYSTEM MCH 19.4(L) 27.0 - 34.0 pg INTERFACE SYSTEM MCHC 25.9(L) 30.0 - 35.0 g/dL INTERFACE SYSTEM RDW 18.4(H) 11.0 - 14.5 percent(i nactive) INTERFACE SYSTEM PLATELETS 490(H) 140 - 440 K/ul INTERFACE SYSTEM MPV 8.6(L) 8.9 - 12.8 Fl INTERFACE SYSTEM NEUTROPHILS 56.4 42.2 - 75.2 percent(i nactive) INTERFACE SYSTEM LYMPHOCYTES 34.6 24.0 - 44.0 percent(i nactive) INTERFACE SYSTEM MONOCYTES 8.2 2.0 - 10.0 percent(i nactive) INTERFACE SYSTEM EOSINOPHILS 0.6 0.0 - 7.0 % INTERFACE SYSTEM BASOPHILS 0.2 0.0 - 1.0 percent(i nactive) INTERFACE SYSTEM NEUTROPHIL ABSOLUTE 4.9 2.0 - 8.0 K/uL INTERFACE SYSTEM LYMPHOCYTE ABSOLUTE 3.0 1.2 - 4.0 K/ul INTERFACE SYSTEM MONOCYTE ABSOLUTE 0.7(H) 0.1 - 0.6 K/ul INTERFACE SYSTEM EOSINOPHIL ABSOLUTE 0.1 0.0 - 0.7 K/ul INTERFACE SYSTEM BASOPHILS ABSOLUTE 0.0 0.0 - 0.2 K/ul INTERFACE SYSTEM PERIPHERAL BLOOD SMEAR REVIEW Automated Diff INTERFACE SYSTEM 05/11/2004 5:25 AM INSURANCE COUNSELOR Hernan Birmingham MD HEMATOLOGY ORDERABLES Final Result Performing Organization Address [facility] Co de Phone Number INTERFACE SYSTEM Refer to clinic/hospital department * LACTATE DEHYDROGENASE (05/10/2004 5:15 AM INSURANCE COUNSELOR) Pathologist [facility] LD (LACTATE DEHYDROGENASE) 458 250 - 540 IU/L INTERFACE SYSTEM 05/10/2004 5:15 AM INSURANCE COUNSELOR Jimi Adams MD CHEMISTRY ORDERABLES Final Re sult Performing Organization Address [facility]/ZIP Co de Phone Number INTERFACE SYSTEM Refer to clinic/hospital department * (ABNORMAL) COMPREHENSIVE METABOLIC PANEL (05/10/2004 5:15 AM INSURANCE COUNSELOR) Pathologist [facility] GLUCOSE 124(H) 70 - 110 mg/dL INTERFACE SYSTEM BUN 7 7 - 17 mg/dL INTERFACE SYSTEM CREATININE 0.5(L) 0.7 - 1.2 mg/dL (inactive) INTERFACE SYSTEM SODIUM 143 136 - 145 mEq/L INTERFACE SYSTEM POTASSIUM 3.7 3.5 - 5.0 mEq/L INTERFACE SYSTEM CO2 28 22 - 32 mmol/l INTERFACE SYSTEM CHLORIDE 109 95 - 110 mEq/L INTERFACE SYSTEM CALCIUM 8.3(L) 8.4 - 10.5 mg/dL INTERFACE SYSTEM ALKALINE PHOSPHATASE 46 38 - 126 IU/L INTERFACE SYSTEM TOTAL PROTEIN 5.6(L) 6.3 - 8.2 g/dL INTERFACE SYSTEM ALBUMIN 2.9(L) 3.5 - 5.0 g/dL INTERFACE SYSTEM AST 21 14 - 36 IU/L INTERFACE SYSTEM ALT 15 9 - 52 IU/L INTERFACE SYSTEM BILIRUBIN TOTAL <0.1(L) 0.2 - 1.4 mg/dL INTERFACE SYSTEM GLOBULIN (CALC) 2.7 2.4 - 3.9 g/dL INTERFACE SYSTEM ANION GAP 10 9 - 20 mEq/L INTERFACE SYSTEM ALBUMIN/GLOBULIN RATIO 1.1 1.0 - 2.3 INTERFACE SYSTEM OSMOLALITY, CALCULATED 292 275 - 295 mOsm/Kg INTERFACE SYSTEM 05/10/2004 5:15 AM INSURANCE COUNSELOR Jimi Adams MD CHEMISTRY ORDERABLES Final Re sult Performing Organization Address [facility] Phone Number INTERFACE SYSTEM Refer to clinic/hospital department * RETICULOCYTES (05/10/2004 5:15 AM INSURANCE COUNSELOR) RETICULOCYTES 1.4 0.5 - 1.5 % INTE RFACE SYSTEM 05/10/2004 5:15 AM INSURANCE COUNSELOR Jimi Adams MD HEMATOLOGY ORDERABLES Final R esult Performing Organization Address [facility] Phone Number INTERFACE SYSTEM Refer to clinic/hospital department * (ABNORMAL) CBC WITH DIFFERENTIAL (05/10/2004 5:15 AM INSURANCE COUNSELOR) WBC 9.7 4.5 - 11.0 K/ul INTERFACE SYSTEM RBC 3.79(L) 4.20 - 5.40 Mil/ul INTERFACE SYSTEM HEMOGLOBIN 7.4(L) 12.0 - 16.0 g/dL INTERFACE SYSTEM HEMATOCRIT 28.6(L) 36.0 - 46.0 % INTERFACE SYSTEM MCV 75.5(L) 84.0 - 103.0 Fl INTERFACE SYSTEM MCH 19.5(L) 27.0 - 34.0 pg INTERFACE SYSTEM MCHC 25.9(L) 30.0 - 35.0 g/dL INTERFACE SYSTEM RDW 18.4(H) 11.0 - 14.5 percent(i nactive) INTERFACE SYSTEM PLATELETS 568(H) 140 - 440 K/ul INTERFACE SYSTEM MPV 8.8(L) 8.9 - 12.8 Fl INTERFACE SYSTEM NEUTROPHILS 90.5(H) 42.2 - 75.2 percent(i nactive) INTERFACE SYSTEM LYMPHOCYTES 8.7(L) 24.0 - 44.0 percent(i nactive) INTERFACE SYSTEM MONOCYTES 0.8(L) 2.0 - 10.0 percent(i nactive) INTERFACE SYSTEM EOSINOPHILS 0.0 0.0 - 7.0 % INTERFACE SYSTEM BASOPHILS 0.0 0.0 - 1.0 percent(i nactive) INTERFACE SYSTEM NEUTROPHIL ABSOLUTE 8.7(H) 2.0 - 8.0 K/uL INTERFACE SYSTEM LYMPHOCYTE ABSOLUTE 0.8(L) 1.2 - 4.0 K/ul INTERFACE SYSTEM MONOCYTE ABSOLUTE 0.1 0.1 - 0.6 K/ul INTERFACE SYSTEM EOSINOPHIL ABSOLUTE 0.0 0.0 - 0.7 K/ul INTERFACE SYSTEM BASOPHILS ABSOLUTE 0.0 0.0 - 0.2 K/ul INTERFACE SYSTEM PERIPHERAL BLOOD SMEAR REVIEW Smear Reviewed INTERFACE SYSTEM 05/10/2004 5:15 AM INSURANCE COUNSELOR Hernan Birmingham MD HEMATOLOGY ORDERABLES Final Result Performing Organization Address [facility] Co de Phone Number INTERFACE SYSTEM Refer to clinic/hospital department * TSH (05/09/2004 5:43 PM INSURANCE COUNSELOR) Pathologist [facility] TSH 3.27 0.49 - 4.67 uIU/ml INTERFACE SYSTEM 05/09/2004 5:43 PM INSURANCE COUNSELOR Hernan Birmingham MD CHEMISTRY ORDERABLES Final R esult INTERFACE SYSTEM Refer to clinic/hospital department * (ABNORMAL) VITAMIN B12 AND FOLATE (05/09/2004 5:43 PM INSURANCE COUNSELOR) VITAMIN B12 982(H) 200 - 925 ng/dL INTERFACE SYSTEM FOLATE, SERUM 19.00 >=2.76 ng/dL INTERFACE SYSTEM Comment:Folate Reference Ran ge: 2.76 to >20 ng/dl 05/09/2004 5:43 PM INSURANCE COUNSELOR Hernan Birmingham MD CHEMISTRY ORDERABLES Final R esult Performing Organization Address [facility] Phone Number INTERFACE SYSTEM Refer to clinic/hospital department * (ABNORMAL) FERRITIN (05/09/2004 5:43 PM INSURANCE COUNSELOR) Pathologist [facility] FERRITIN 3.3(L) 6.3 - 132.0 ng/mL INTERFACE SYSTEM 05/09/2004 5:43 PM INSURANCE COUNSELOR Hernan Birmingham MD CHEMISTRY ORDERABLES Final R esult Performing Organization Address [facility] Phone Number INTERFACE SYSTEM Refer to clinic/hospital department * (ABNORMAL) IRON AND TIBC (05/09/2004 5:43 PM INSURANCE COUNSELOR) Pathologist [facility] IRON 7(L) 45 - 150 ug/dL INTERFACE SYSTEM TIBC 415 250 - 450 ug/dL INTERFACE SYSTEM IRON % SATURATION 2(L) 15 - 50 % INTERFACE SYSTEM 05/09/2004 5:43 PM INSURANCE COUNSELOR Hernan Birmingham MD CHEMISTRY ORDERABLES Final R esult Performing Organization Address [facility] Phone Number INTERFACE SYSTEM Refer to clinic/hospital department * (ABNORMAL) CBC WITH DIFFERENTIAL (05/09/2004 8:15 AM INSURANCE COUNSELOR) WBC 8.8 4.5 - 11.0 K/ul INTERFACE SYSTEM RBC 3.67(L) 4.20 - 5.40 Mil/ul INTERFACE SYSTEM HEMOGLOBIN 7.2(L) 12.0 - 16.0 g/dL INTERFACE SYSTEM HEMATOCRIT 27.5(L) 36.0 - 46.0 % INTERFACE SYSTEM MCV 74.9(L) 84.0 - 103.0 Fl INTERFACE SYSTEM MCH 19.6(L) 27.0 - 34.0 pg INTERFACE SYSTEM MCHC 26.2(L) 30.0 - 35.0 g/dL INTERFACE SYSTEM RDW 18.6(H) 11.0 - 14.5 percent(i nactive) INTERFACE SYSTEM PLATELETS 603(H) 140 - 440 K/ul INTERFACE SYSTEM MPV 9.1 8.9 - 12.8 Fl INTERFACE SYSTEM NEUTROPHILS 70.5 42.2 - 75.2 percent(i nactive) INTERFACE SYSTEM LYMPHOCYTES 18.8(L) 24.0 - 44.0 percent(i nactive) INTERFACE SYSTEM MONOCYTES 9.1 2.0 - 10.0 percent(i nactive) INTERFACE SYSTEM EOSINOPHILS 1.4 0.0 - 7.0 % INTERFACE SYSTEM BASOPHILS 0.2 0.0 - 1.0 percent(i nactive) INTERFACE SYSTEM NEUTROPHIL ABSOLUTE 6.2 2.0 - 8.0 K/uL INTERFACE SYSTEM LYMPHOCYTE ABSOLUTE 1.7 1.2 - 4.0 K/ul INTERFACE SYSTEM MONOCYTE ABSOLUTE 0.8(H) 0.1 - 0.6 K/ul INTERFACE SYSTEM EOSINOPHIL ABSOLUTE 0.1 0.0 - 0.7 K/ul INTERFACE SYSTEM BASOPHILS ABSOLUTE 0.0 0.0 - 0.2 K/ul INTERFACE SYSTEM PERIPHERAL BLOOD SMEAR REVIEW Automated Diff INTERFACE SYSTEM 05/09/2004 8:15 AM INSURANCE COUNSELOR RUST Emre Birmingham MD HEMATOLOGY ORDERABLES Final Result INTERFACE SYSTEM Refer to clinic/hospital department * (ABNORMAL) CBC WITH DIFFERENTIAL (05/09/2004 6:30 AM INSURANCE COUNSELOR) WBC 9.2 4.5 - 11.0 K/ul INTERFACE SYSTEM RBC 3.55(L) 4.20 - 5.40 Mil/ul INTERFACE SYSTEM HEMOGLOBIN 7.0(L) 12.0 - 16.0 g/dL INTERFACE SYSTEM HEMATOCRIT 26.4(L) 36.0 - 46.0 % INTERFACE SYSTEM MCV 74.4(L) 84.0 - 103.0 Fl INTERFACE SYSTEM MCH 19.7(L) 27.0 - 34.0 pg INTERFACE SYSTEM MCHC 26.5(L) 30.0 - 35.0 g/dL INTERFACE SYSTEM RDW 18.5(H) 11.0 - 14.5 percent(i nactive) INTERFACE SYSTEM PLATELETS 565(H) 140 - 440 K/ul INTERFACE SYSTEM MPV 8.6(L) 8.9 - 12.8 Fl INTERFACE SYSTEM NEUTROPHILS 74.0 42.2 - 75.2 percent(i nactive) INTERFACE SYSTEM LYMPHOCYTES 15.0(L) 24.0 - 44.0 percent(i nactive) INTERFACE SYSTEM MONOCYTES 9.6 2.0 - 10.0 percent(i nactive) INTERFACE SYSTEM EOSINOPHILS 1.3 0.0 - 7.0 % INTERFACE SYSTEM BASOPHILS 0.1 0.0 - 1.0 percent(i nactive) INTERFACE SYSTEM NEUTROPHIL ABSOLUTE 6.8 2.0 - 8.0 K/uL INTERFACE SYSTEM LYMPHOCYTE ABSOLUTE 1.4 1.2 - 4.0 K/ul INTERFACE SYSTEM MONOCYTE ABSOLUTE 0.9(H) 0.1 - 0.6 K/ul INTERFACE SYSTEM EOSINOPHIL ABSOLUTE 0.1 0.0 - 0.7 K/ul INTERFACE SYSTEM BASOPHILS ABSOLUTE 0.0 0.0 - 0.2 K/ul INTERFACE SYSTEM PERIPHERAL BLOOD SMEAR REVIEW Automated Diff INTERFACE SYSTEM 05/09/2004 6:30 AM INSURANCE COUNSELOR Hernan Birmingham MD HEMATOLOGY ORDERABLES Final Result Performing Organization Address [facility] de Phone Number INTERFACE SYSTEM Refer to clinic/hospital department * URINALYSIS (05/08/2004 8:39 PM INSURANCE COUNSELOR) COLOR UA Yellow Straw INTERFACE SYSTEM CLARITY UA Clear Clear INTERFACE SYSTEM LEUKOCYTE ESTERASE UA NEGATIVE NEGATIVE INTERFACE SYSTEM NITRITE UA NEGATIVE NEGATIVE INTERFACE SYSTEM PH UA 5.0 5.0 - 9.0 INTERFACE SYSTEM PROTEIN UA NEGATIVE NEGATIVE INTERFACE SYSTEM GLUCOSE UA NEGATIVE NEGATIVE INTERFACE SYSTEM UROBILINOGEN UA 0.2 0.2 INTE RFACE SYSTEM BILIRUBIN UA NEGATIVE NEGATIVE INTERFA CE SYSTEM BLOOD UA NEGATIVE NEGATIVE INTERFACE SYSTEM SPECIFIC GRAVITY UA 1.010 1.005 - 1.030 INTERFACE SYSTEM MICRO EXAM No No INTERFACE SYSTEM 05/08/2004 8:39 PM INSURANCE COUNSELOR Honorio Pickering MD URINE ORDERABLES Final Result Performing Organization Address [facility] Co de Phone Number INTERFACE SYSTEM Refer to clinic/hospital department * (ABNORMAL) ACETONE QUALITATIVE, URINE (05/08/2004 8:39 PM INSURANCE COUNSELOR) KETONES UA Moderate(A ) Negative INTERFACE SYSTEM 05/08/2004 8:39 PM INSURANCE COUNSELOR us Honorio Pickering MD URINE ORDERABLES Final Result INTERFACE SYSTEM Refer to clinic/hospital department * (ABNORMAL) CBC WITH DIFFERENTIAL (05/08/2004 2:44 PM INSURANCE COUNSELOR) WBC 25.3(H) 4.5 - 11.0 K/ul INTERFACE SYSTEM RBC 4.69 4.20 - 5.40 Mil/ul INTERFACE SYSTEM HEMOGLOBIN 9.3(L) 12.0 - 16.0 g/dL INTERFACE SYSTEM HEMATOCRIT 34.9(L) 36.0 - 46.0 % INTERFACE SYSTEM MCV 74.4(L) 84.0 - 103.0 Fl INTERFACE SYSTEM MCH 19.8(L) 27.0 - 34.0 pg INTERFACE SYSTEM MCHC 26.6(L) 30.0 - 35.0 g/dL INTERFACE SYSTEM RDW 18.5(H) 11.0 - 14.5 percent(inac tive) INTERFACE SYSTEM PLATELETS 1,084(AA) 140 - 440 K/ul INTERFACE SYSTEM Comment: Potentially critical/toxic PLATELET COUNT OF [id number] called by GE to TESSA, with verbal repeat, at 15:18. MPV 9.2 8.9 - 12.8 Fl INTERFACE SYSTEM NEUTROPHILS 88.6(H) 42.2 - 75.2 percent(inac tive) INTERFACE SYSTEM LYMPHOCYTES 5.2(L) 24.0 - 44.0 percent(inac tive) INTERFACE SYSTEM MONOCYTES 5.7 2.0 - 10.0 percent(inac tive) INTERFACE SYSTEM EOSINOPHILS 0.4 0.0 - 7.0 % INTERF KRISTY SYSTEM BASOPHILS 0.1 0.0 - 1.0 percent(inac tive) INTERFACE SYSTEM NEUTROPHIL ABSOLUTE 22.4(H) 2.0 - 8.0 K/uL INTERFACE SYSTEM LYMPHOCYTE ABSOLUTE 1.3 1.2 - 4.0 K/ul INTERFACE SYSTEM MONOCYTE ABSOLUTE 1.4(H) 0.1 - 0.6 K/ul INTERFACE SYSTEM EOSINOPHIL ABSOLUTE 0.1 0.0 - 0.7 K/ul INTERFACE SYSTEM BASOPHILS ABSOLUTE 0.0 0.0 - 0.2 K/ul INTERFACE SYSTEM PERIPHERAL BLOOD SMEAR REVIEW Automated Diff INTERFACE SYSTEM HEM COMMENT Smear Reviewed Automated Diff INTERFACE SYSTEM 05/08/2004 2:44 PM INSURANCE COUNSELOR Honorio Pickering MD HEMATOLOGY ORDERABLES Final Res ult Performing Organization Address [facility] de Phone Number INTERFACE SYSTEM Refer to clinic/hospital department * (ABNORMAL) COMPREHENSIVE METABOLIC PANEL (05/08/2004 2:44 PM INSURANCE COUNSELOR) GLUCOSE 145(H) 70 - 110 mg/dL INTERFACE SYSTEM BUN 17 7 - 17 mg/dL INTERFACE SYSTEM CREATININE 0.8 0.7 - 1.2 mg/dL (inactive) INTERFACE SYSTEM SODIUM 144 136 - 145 mEq/L INTERFACE SYSTEM POTASSIUM 3.7 3.5 - 5.0 mEq/L INTERFACE SYSTEM CO2 21(L) 22 - 32 mmol/l INTERFACE SYSTEM CHLORIDE 113(H) 95 - 110 mEq/L INTERFACE SYSTEM CALCIUM 9.5 8.4 - 10.5 mg/dL INTERFACE SYSTEM ALKALINE PHOSPHATASE 65 38 - 126 IU/L INTERFACE SYSTEM TOTAL PROTEIN 7.4 6.3 - 8.2 g/dL INTERFACE SYSTEM ALBUMIN 3.9 3.5 - 5.0 g/dL INTERFACE SYSTEM AST 21 14 - 36 IU/L INTERFACE SYSTEM ALT 17 9 - 52 IU/L INTERFACE SYSTEM BILIRUBIN TOTAL 0.1(L) 0.2 - 1.4 mg/dL INTERFACE SYSTEM GLOBULIN (CALC) 3.5 2.4 - 3.9 g/dL INTERFACE SYSTEM ANION GAP 14 9 - 20 mEq/L INTERFACE SYSTEM ALBUMIN/GLOBULIN RATIO 1.1 1.0 - 2.3 INTERFACE SYSTEM OSMOLALITY, CALCULATED 299(H) 275 - 295 mOsm/Kg INTERFACE SYSTEM 05/08/2004 2:44 PM INSURANCE COUNSELOR Honorio Pickering MD CHEMISTRY ORDERABLES Final Resu lt Performing Organization Address [facility] Phone Number INTERFACE SYSTEM Refer to clinic/hospital department * LIPASE (05/08/2004 2:44 PM INSURANCE COUNSELOR) LIPASE 109 23 - 300 IU/L INTERFACE SYSTEM 05/08/2004 2:44 PM INSURANCE COUNSELOR us Honorio Pickering MD CHEMISTRY ORDERABLES Final Resu lt INTERFACE SYSTEM Refer to clinic/hospital department * AMYLASE (05/08/2004 2:44 PM INSURANCE COUNSELOR) AMYLASE 41 30 - 120 IU/L INTERFACE SYSTEM 05/08/2004 2:44 PM INSURANCE COUNSELOR us Honorio Pickering MD CHEMISTRY ORDERABLES Final Resu lt Performing Organization Address [facility] de Phone Number INTERFACE SYSTEM Refer to clinic/hospital department documented in this encounter Visit Diagnoses Diagnosis Intestinal or peritoneal adhesions with obstruction (postoperative) (postinfection) (CMS/HCC)- Primary Intestinal or peritoneal adhesions with obstruction (postoperative) (postinfection) documented in this encounter Care Teams Dat Instructor Relationship Specialty Start Date End Date Oleg Hamilton MD PCP - General 06/04/04 documented as of this encounter
--- OUTSIDE RECORDS SUMMARY | 2024-10-24 17:17 | XMS_ITS | Encounter Summary ---
Author Organization [facility] Address [address] [place] [address] Care Team Providers Care Change Control Analyst Name Role Phone Oleg Hamilton MD Primary Care Provider +1- [phone] Encounter Details Date Type Department Care Team (Latest Contact Info) Description 10/27/2004 Outpatient Historical [facility] Cancer and Hematology [address] [place] [address] [address] [place] [address] Jimi Adams MD [address] [place] [address] IRON DEFIC ANEMIA NOS (Primary Dx); ADV EFFECT MED/BIOL SUB NOS Social History Tobacco Use Types Packs/Day Years Used Date Smoking Tobacco: Never Assessed Comments Unknown Sex and Gender Information Value Date Recorded Sex Assigned at Not on file Legal Sex Female 5:17 AM CLINICAL SYSTEMS ANALYST Gender Identity Not on file Sexual Orientation Not on file documented as of this encounter Plan of Treatment Not on file documented as of this encounter Visit Diagnoses Diagnosis Iron deficiency anemia, unspecified- Primary Other and unspecified adverse effect of drug, medicinal and biological substance documented in this encounter Care Teams Change Control Analyst Relationship Specialty Start Date End Date Oleg Hamilton MD PCP - General 06/04/04 documented as of this encounter
--- OUTSIDE RECORDS SUMMARY | 2024-10-24 17:17 | XMS_ITS | Encounter Summary ---
Author Organization [facility] Address [address] [place] [address] Care Team Providers Care R And D Lab Technician Name Role Phone Oleg Hamilton MD Primary Care Provider +1- [phone] Encounter Details Date Type Department Care Team (Latest Contact Info) Description 03/10/2006 Outpatient Historical [facility] [place] Cancer and Hematology [address] [place] [address] [address] [place] [address] Jimi Adams MD [address] [place] [address] Unspecified Iron Deficiency Anemia (Primary Dx); Adv Eff Med/Biol NEC/NOS Social History Tobacco Use Types Packs/Day Years Used Date Smoking Tobacco: Never Assessed Comments Unknown Sex and Gender Information Value Date Recorded Sex Assigned at Not on file Legal Sex Female 5:17 AM CLINICAL CYTOGENETICIST Gender Identity Not on file Sexual Orientation Not on file documented as of this encounter Plan of Treatment Not on file documented as of this encounter Visit Diagnoses Diagnosis Iron deficiency anemia, unspecified- Primary Unspecified adverse effect of other drug, medicinal and biological substance(995.29) Unspecified adverse effect of other drug, medicinal and biological substance documented in this encounter Care Teams R And D Lab Technician Relationship Specialty Start Date End Date Oleg Hamilton MD PCP - General 06/04/04 documented as of this encounter
--- OUTSIDE RECORDS SUMMARY | 2024-10-24 17:17 | XMS_ITS | Encounter Summary ---
Author Organization [facility] Address [address] [place] [address] Care Team Providers Care Small Brake Form Operator Name Role Phone Oleg Hamilton MD Primary Care Provider +1- [phone] Encounter Details Date Type Department Care Team (Latest Contact Info) Description 03/10/2006 Outpatient Historical [facility] Internal Medicine- [place] [address] [facility] [address] [place] [address] Oleg Hamilton MD [address] [place] [address] Other and Unspecified Hyperlipidemia (Primary Dx); Anxiety State, Unspecified; Iron Deficiency Anemia Secondary to Inadequate Dietary Iron Intake Social History Tobacco Use Types Packs/Day Years Used Date Smoking Tobacco: Never Assessed Comments Unknown Sex and Gender Information Value Date Recorded Sex Assigned at Not on file Legal Sex Female 5:17 AM SHIRT SEWER Gender Identity Not on file Sexual Orientation Not on file documented as of this encounter Plan of Treatment Not on file documented as of this encounter Visit Diagnoses Diagnosis Other and unspecified hyperlipidemia- Primary Anxiety state, unspecified Iron deficiency anemia secondary to inadequate dietary iron intake documented in this encounter Care Teams Small Brake Form Operator Relationship Specialty Start Date End Date Oleg Hamilton MD PCP - General 06/04/04 documented as of this encounter
--- OUTSIDE RECORDS SUMMARY | 2024-10-24 17:17 | XMS_ITS | Encounter Summary ---
Author Organization [facility] Address [address] [place] [address] Care Team Providers Care Counter Stacker Name Role Phone Oleg Hamilton MD Primary Care Provider +1- [phone] Encounter Details Date Type Department Care Team (Late st Contact Info) Description 10/29/[address] 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
--- OUTSIDE RECORDS SUMMARY | 2024-10-24 17:17 | XMS_ITS | Encounter Summary ---
Author Organization [facility] Address [address] [place] [address] Care Team Providers Care Gasket Maker Name Role Phone Oleg Hamilton MD Primary Care Provider +1- [phone] Encounter Details Date Type Department Care Team (Latest Contact Info) Description 05/26/2004 Outpatient Historical [facility] Internal Medicine- [place] [address] [facility] [address] [place] [address] Oleg Hamilton MD [address] [place] [address] LUMBAGO (Primary Dx); ANEMIA NOS; ACUTE STRESS REACT NOS; OTHER MALAISE AND FATIGUE Social History Tobacco Use Types Packs/Day Years Used Date Smoking Tobacco: Never Assessed Comments Unknown Sex and Gender Information Value Date Recorded Sex Assigned at Not on file Legal Sex Female 5:17 AM CHOKER HOOKER Gender Identity Not on file Sexual Orientation Not on file documented as of this encounter Plan of Treatment Not on file documented as of this encounter Visit Diagnoses Diagnosis Lumbago- Primary Anemia, unspecified Unspecified acute reaction to stress Other malaise and fatigue documented in this encounter Care Teams Gasket Maker Relationship Specialty Start Date End Date Oleg Hamilton MD PCP - General 06/04/04 documented as of this encounter
--- OUTSIDE RECORDS SUMMARY | 2024-10-24 17:17 | XMS_ITS | Encounter Summary ---
Author Organization [facility] Address [address] [place] [address] Care Team Providers Care Metal Coater Name Role Phone Oleg Hamilton MD Primary Care Provider +1- [phone] Encounter Details Date Type Department Care Team ([facility] st Contact Info) Description 08/22/2005 Outpatient [facility] Physical Therapy Services [place] [address] [facility] [address] [place] [address] Cruz Cortés MD [address] [facility] [address] [place], [place] [address] Social History Tobacco Use Types Packs/Day Years Used Date Smoking Tobacco: Never Assessed Comments Unknown Sex and Gender Information Value Date Recorded Sex Assigned at Not on file Legal Sex Female 5:17 AM CLINICAL DATA PROGRAMMER Gender Identity Not on file Sexual Orientation Not on file documented as of this encounter Plan of Treatment Not on file documented as of this encounter Visit Diagnoses Not on filedocumented in this encounter Care Teams Metal Coater Relationship Specialty Start Date End Date Oleg Hamilton MD PCP - General 06/04/04 documented as of this encounter
--- OUTSIDE RECORDS SUMMARY | 2024-10-24 17:17 | XMS_ITS | Encounter Summary ---
Author Organization [facility] Address [address] [place] [address] Care Team Providers Care Senior Account Clerk Name Role Phone Oleg Hamilton MD Primary Care Provider +1- [phone] Encounter Details Date Type Department Care Team (Latest Contact Info) Description 11/06/2004 Outpatient Historical [facility] Internal Medicine- [place] [address] [facility] [address] [place] [address] Oleg Hamilton MD [address] [place] [address] ACUTE STRESS REACT NOS (Primary Dx); LUMBAGO; AFTERCARE SNF USE MEDICATN Social History Tobacco Use Types Packs/Day Years Used Date Smoking Tobacco: Never Assessed Comments Unknown Sex and Gender Information Value Date Recorded Sex Assigned at Not on file Legal Sex Female 5:17 AM MANAGER ELECTRONIC Gender Identity Not on file Sexual Orientation Not on file documented as of this encounter Plan of Treatment Not on file documented as of this encounter Visit Diagnoses Diagnosis Unspecified acute reaction to stress- Primary Lumbago Encounter for long-term (current) use of other medications documented in this encounter Care Teams Senior Account Clerk Relationship Specialty Start Date End Date Oleg Hamilton MD PCP - General 06/04/04 documented as of this encounter
--- OUTSIDE RECORDS SUMMARY | 2024-10-24 17:17 | XMS_ITS | Encounter Summary ---
Author Organization [facility] Address [address] [place] [address] Care Team Providers Care Carton Counter Feeder Name Role Phone Oleg Hamilton MD Primary Care Provider +1- [phone] Encounter Details Date Type Department Care Team (Latest Contact Info) Description 03/01/2006 Outpatient Historical [facility] Endoscopy [place] [address] [place] [address] Shashi Ag MD [address] [facility] [address] [place] [address] Unspecified Iron Deficiency Anemia (Primary Dx) Social History Tobacco Use Types Packs/Day Years Used Date Smoking Tobacco: Never Assessed Comments Unknown Sex and Gender Information Value Date Recorded Sex Assigned at Not on file Legal Sex Female 5:17 AM KETTLE OPERATOR Gender Identity Not on file Sexual Orientation Not on file documented as of this encounter Plan of Treatment Not on file documented as of this encounter Visit Diagnoses Diagnosis Iron deficiency anemia, unspecified- Primary documented in this encounter Care Teams Carton Counter Feeder Relationship Specialty Start Date End Date Oleg Hamilton MD PCP - General 06/04/04 documented as of this encounter
--- OUTSIDE RECORDS SUMMARY | 2024-10-24 17:17 | XMS_ITS | Encounter Summary ---
Author Organization [facility] Address [address] [place] [address] Care Team Providers Care Cashier Parking Lot Name Role Phone Oleg Hamilton MD Primary Care Provider +1- [phone] Encounter Details Date Type Department Care Team (Latest Contact Info) Description 12/11/2004 Outpatient Historical [facility] Physical Therapy [address] [place] [address] Sidney Cortés MD NO ADDRESS ON FILE LUMBAGO (Primary Dx) Social History Tobacco Use Types Packs/Day Years Used Date Smoking Tobacco: Never Assessed Comments Unknown Sex and Gender Information Value Date Recorded Sex Assigned at Not on file Legal Sex Female 5:17 AM SENIOR TEST ENGINEER Gender Identity Not on file Sexual Orientation Not on file documented as of this encounter Plan of Treatment Not on file documented as of this encounter Visit Diagnoses Diagnosis Lumbago- Primary documented in this encounter Care Teams Cashier Parking Lot Relationship Specialty Start Date End Date Oleg Hamilton MD PCP - General 06/04/04 documented as of this encounter
--- OUTSIDE RECORDS SUMMARY | 2024-10-24 17:17 | XMS_ITS | Encounter Summary ---
Author Organization [facility] Address [address] [place] [address] Care Team Providers Care President And Chief Operating Officer Name Role Phone Oleg Hamilton MD Primary Care Provider +1- [phone] Encounter Details Date Type Department Care Team (Latest Contact Info) Description 09/30/2004 Outpatient Historical [facility] Cancer and Hematology [address] [place] [address] [address] [place] [address] Jimi Adams MD [address] [place] [address] IRON DEFIC ANEMIA NOS (Primary Dx) Social History Tobacco Use Types Packs/Day Years Used Date Smoking Tobacco: Never Assessed Comments Unknown Sex and Gender Information Value Date Recorded Sex Assigned at Not on file Legal Sex Female 5:17 AM LPN RN Gender Identity Not on file Sexual Orientation Not on file documented as of this encounter Plan of Treatment Not on file documented as of this encounter Visit Diagnoses Diagnosis Iron deficiency anemia, unspecified- Primary documented in this encounter Care Teams President And Chief Operating Officer Relationship Specialty Start Date End Date Oleg Hamilton MD PCP - General 06/04/04 documented as of this encounter
--- OUTSIDE RECORDS SUMMARY | 2024-10-24 17:17 | XMS_ITS | Encounter Summary ---
Author Organization [facility] Address [address] [place] [address] Care Team Providers Care Heat Treating Furnace Tender Name Role Phone Oleg Hamilton MD Primary Care Provider +1- [phone] Encounter Details Date Type Department Care Team (Latest Contact Info) Description 08/26/2005 Outpatient Historical [facility] [address] [place] [address] Sidney Cortés MD NO ADDRESS ON FILE Lumbago (Primary Dx) Social History Tobacco Use Types Packs/Day Years Used Date Smoking Tobacco: Never Assessed Comments Unknown Sex and Gender Information Value Date Recorded Sex Assigned at Not on file Legal Sex Female 5:17 AM SLATE CUTTER Gender Identity Not on file Sexual Orientation Not on file documented as of this encounter Plan of Treatment Not on file documented as of this encounter Visit Diagnoses Diagnosis Lumbago- Primary documented in this encounter Care Teams Heat Treating Furnace Tender Relationship Specialty Start Date End Date Oleg Hamilton MD PCP - General 06/04/04 documented as of this encounter
--- OUTSIDE RECORDS SUMMARY | 2024-10-24 17:17 | XMS_ITS | Encounter Summary ---
Author Organization [facility] Address [address] [place] [address] Care Team Providers Care Biblical Languages Professor Name Role Phone Oleg Hamilton MD Primary Care Provider +1- [phone] Encounter Details Date Type Department Care Team (Latest Contact Info) Description 09/28/2006 Outpatient Historical [facility] [address] [place] [address] Sidney Cortés MD NO ADDRESS ON FILE Disorders of Sacrum (Primary Dx); Lumbago Social History Tobacco Use Types Packs/Day Years Used Date Smoking Tobacco: Never Assessed Comments Unknown Sex and Gender Information Value Date Recorded Sex Assigned at Not on file Legal Sex Female 5:17 AM COLLEGE ADMINISTRATOR Gender Identity Not on file Sexual Orientation Not on file documented as of this encounter Plan of Treatment Not on file documented as of this encounter Visit Diagnoses Diagnosis Disorders of sacrum- Primary Lumbago documented in this encounter Care Teams Biblical Languages Professor Relationship Specialty Start Date End Date Oleg Hamilton MD PCP - General 06/04/04 documented as of this encounter
--- OUTSIDE RECORDS SUMMARY | 2024-10-24 17:17 | XMS_ITS | Encounter Summary ---
Author Organization [facility] Address [address] [place] [address] Care Team Providers Care Sleeping Car Service Attendant Name Role Phone Oleg Hamilton MD Primary Care Provider +1- [phone] Encounter Details Date Type Department Care Team (Late st Contact Info) Description 06/04/2004 Outpatient Historical [facility] Imaging [place] [address] [address] Social History Tobacco Use Types Packs/Day Years Used Date Smoking Tobacco: Never Assessed Comments Unknown Sex and Gender Information Value Date Recorded Sex Assigned at Not on file Legal Sex Female 5:17 AM INFORMATICS PHYSICIAN Gender Identity Not on file Sexual Orientation Not on file documented as of this encounter Plan of Treatment Not on file documented as of this encounter Visit Diagnoses Not on filedocumented in this encounter Care Teams Sleeping Car Service Attendant Relationship Specialty Start Date End Date Oleg Hamilton MD PCP - General 06/04/04 documented as of this encounter
--- OUTSIDE RECORDS SUMMARY | 2024-10-24 17:17 | XMS_ITS | Encounter Summary ---
Author Organization [facility] Address [address] [place] [address] Care Team Providers Care Graduation Coach Name Role Phone Oleg Hamilton MD Primary Care Provider +1- [phone] Encounter Details Date Type Department Care Team (Latest Contact Info) Description 10/11/2005 Outpatient Historical [facility] Cancer and Hematology [address] [place] [address] [address] [place] [address] Jimi Adams MD [address] [place] [address] Unspecified Iron Deficiency Anemia (Primary Dx); Adv Eff Med/Biol Sub Social History Tobacco Use Types Packs/Day Years Used Date Smoking Tobacco: Never Assessed Comments Unknown Sex and Gender Information Value Date Recorded Sex Assigned at Not on file Legal Sex Female 5:17 AM ARROW POINT ATTACHER Gender Identity Not on file Sexual Orientation Not on file documented as of this encounter Plan of Treatment Not on file documented as of this encounter Visit Diagnoses Diagnosis Iron deficiency anemia, unspecified- Primary Other and unspecified adverse effect of drug, medicinal and biological substance documented in this encounter Care Teams Graduation Coach Relationship Specialty Start Date End Date Oleg Hamilton MD PCP - General 06/04/04 documented as of this encounter
--- OUTSIDE RECORDS SUMMARY | 2024-10-24 17:17 | XMS_ITS | Encounter Summary ---
Author Organization [facility] Address [address] [place] [address] Care Team Providers Care Home Restoration Service Supervisor Name Role Phone Oleg Hamilton MD Primary Care Provider +1- [phone] Encounter Details Date Type Department Care Team (Latest Contact Info) Description 09/28/2006 Outpatient Historical [facility] Pain Management Procedures [address] [place] [address] Sidney Cortés MD NO ADDRESS ON FILE Disorders of Sacrum (Primary Dx) Social History Tobacco Use Types Packs/Day Years Used Date Smoking Tobacco: Never Assessed Comments Unknown Sex and Gender Information Value Date Recorded Sex Assigned at Not on file Legal Sex Female 5:17 AM OCULARIST Gender Identity Not on file Sexual Orientation Not on file documented as of this encounter Plan of Treatment Not on file documented as of this encounter Visit Diagnoses Diagnosis Disorders of sacrum- Primary documented in this encounter Care Teams Home Restoration Service Supervisor Relationship Specialty Start Date End Date Oleg Hamilton MD PCP - General 06/04/04 documented as of this encounter
--- OUTSIDE RECORDS SUMMARY | 2024-10-24 17:17 | XMS_ITS | Encounter Summary ---
Author Organization [facility] Address [address] [place] [address] Care Team Providers Care Director Of Instruction Name Role Phone Oleg Hamilton MD Primary Care Provider +1- [phone] Encounter Details Date Type Department Care Team (Latest Contact Info) Description 08/31/2006 Outpatient Historical [facility] Cancer and Hematology [address] [place] [address] [address] [place] [address] Jimi Adams MD [address] [place] [address] Unspecified Iron Deficiency Anemia (Primary Dx); Adv Eff Med/Biol NEC/NOS Social History Tobacco Use Types Packs/Day Years Used Date Smoking Tobacco: Never Assessed Comments Unknown Sex and Gender Information Value Date Recorded Sex Assigned at Not on file Legal Sex Female 5:17 AM ADVANCED QUALITY ENGINEER Gender Identity Not on file Sexual Orientation Not on file documented as of this encounter Plan of Treatment Not on file documented as of this encounter Visit Diagnoses Diagnosis Iron deficiency anemia, unspecified- Primary Unspecified adverse effect of other drug, medicinal and biological substance(995.29) Unspecified adverse effect of other drug, medicinal and biological substance documented in this encounter Care Teams Director Of Instruction Relationship Specialty Start Date End Date Oleg Hamilton MD PCP - General 06/04/04 documented as of this encounter
--- OUTSIDE RECORDS SUMMARY | 2024-10-24 17:17 | XMS_ITS | Encounter Summary ---
Author Organization [facility] Address [address] [place] [address] Care Team Providers Care Mitten Stitcher Name Role Phone Oleg Hamilton MD Primary Care Provider +1- [phone] Encounter Details Date Type Department Care Team (Latest Contact Info) Description 09/08/2006 Outpatient Historical [facility] Cancer and Hematology [address] [place] [address] [address] [place] [address] Jimi Adams MD [address] [place] [address] Unspecified Iron Deficiency Anemia (Primary Dx); Adv Eff Med/Biol NEC/NOS Social History Tobacco Use Types Packs/Day Years Used Date Smoking Tobacco: Never Assessed Comments Unknown Sex and Gender Information Value Date Recorded Sex Assigned at Not on file Legal Sex Female 5:17 AM RECTIFICATION PRINTER Gender Identity Not on file Sexual Orientation Not on file documented as of this encounter Plan of Treatment Not on file documented as of this encounter Visit Diagnoses Diagnosis Iron deficiency anemia, unspecified- Primary Unspecified adverse effect of other drug, medicinal and biological substance(995.29) Unspecified adverse effect of other drug, medicinal and biological substance documented in this encounter Care Teams Mitten Stitcher Relationship Specialty Start Date End Date Oleg Hamilton MD PCP - General 06/04/04 documented as of this encounter
--- OUTSIDE RECORDS SUMMARY | 2024-10-24 17:17 | XMS_ITS | Encounter Summary ---
Author Organization [facility] Address [address] [place] [address] Care Team Providers Care Channeler Outsole Name Role Phone Oleg Hamilton MD Primary Care Provider +1- [phone] Encounter Details Date Type Department Care Team (Latest Contact Info) Description 08/26/2005 Outpatient [facility] [place] [address] [facility] [address] [place] [address] Sidney Cortés MD NO ADDRESS ON FILE Lumbago (Primary Dx) Social History Tobacco Use Types Packs/Day Years Used Date Smoking Tobacco: Never Assessed Comments Unknown Sex and Gender Information Value Date Recorded Sex Assigned at Not on file Legal Sex Female 5:17 AM ERECTING CRANE OPERATOR Gender Identity Not on file Sexual Orientation Not on file documented as of this encounter Plan of Treatment Not on file documented as of this encounter Visit Diagnoses Diagnosis Lumbago- Primary documented in this encounter Care Teams Channeler Outsole Relationship Specialty Start Date End Date Oleg Hamilton MD PCP - General 06/04/04 documented as of this encounter
--- OUTSIDE RECORDS SUMMARY | 2024-10-24 17:17 | XMS_ITS | Encounter Summary ---
Author Organization [facility] Address [address] [place] [address] Care Team Providers Care Hook Loader Name Role Phone Oleg Hamilton MD Primary Care Provider +1- [phone] Encounter Details Date Type Department Care Team (Latest Contact Info) Description 11/25/2004 Outpatient Historical [facility] Cancer and Hematology [address] [place] [address] [address] [place] [address] Sumanth Moreno MD [address] [place] [address] IRON DEFIC ANEMIA NOS (Primary Dx); ADV EFFECT MED/BIOL SUB NOS Social History Tobacco Use Types Packs/Day Years Used Date Smoking Tobacco: Never Assessed Comments Unknown Sex and Gender Information Value Date Recorded Sex Assigned at Not on file Legal Sex Female 5:17 AM REGISTERED MIDWIFE Gender Identity Not on file Sexual Orientation Not on file documented as of this encounter Plan of Treatment Not on file documented as of this encounter Visit Diagnoses Diagnosis Iron deficiency anemia, unspecified- Primary Other and unspecified adverse effect of drug, medicinal and biological substance documented in this encounter Care Teams Hook Loader Relationship Specialty Start Date End Date Oleg Hamilton MD PCP - General 06/04/04 documented as of this encounter
--- OUTSIDE RECORDS SUMMARY | 2024-10-24 17:17 | XMS_ITS | Encounter Summary ---
Author Organization [facility] Address [address] [place] [address] Care Team Providers Care Sustainable Agriculture Specialist Name Role Phone Oleg Hamilton MD Primary Care Provider +1- [phone] Encounter Details Date Type Department Care Team (Latest Contact Info) Description 08/30/[address] [facility] Cancer and Hematology [address] [place] [address] [address] [place] [address] Jimi Adams MD [address] [place] [address] Unspecified Iron Deficiency Anemia (Primary Dx); Adv Eff Med/Biol Sub Social History Tobacco Use Types Packs/Day Years Used Date Smoking Tobacco: Never Assessed Comments Unknown Sex and Gender Information Value Date Recorded Sex Assigned at Not on file Legal Sex Female 5:17 AM LAMP SHADES SUPERVISOR Gender Identity Not on file Sexual Orientation Not on file documented as of this encounter Plan of Treatment Not on file documented as of this encounter Visit Diagnoses Diagnosis Iron deficiency anemia, unspecified- Primary Other and unspecified adverse effect of drug, medicinal and biological substance documented in this encounter Care Teams Sustainable Agriculture Specialist Relationship Specialty Start Date End Date Oleg Hamilton MD PCP - General 06/04/04 documented as of this encounter
--- OUTSIDE RECORDS SUMMARY | 2024-10-24 17:17 | XMS_ITS | Encounter Summary ---
Author Organization [facility] Address [address] [place] [address] Care Team Providers Care Systems Eng Name Role Phone Oleg Hamilton MD Primary Care Provider +1- [phone] Encounter Details Date Type Department Care Team (Latest Contact Info) Description 10/22/[address] [facility] Pain Management Procedures [address] [place] [id number] Sidney Cortés MD NO ADDRESS ON FILE LUMB/LUMBOSAC DISC DEGEN (Primary Dx) Social History Tobacco Use Types Packs/Day Years Used Date Smoking Tobacco: Never Assessed Comments Unknown Sex and Gender Information Value Date Recorded Sex Assigned at Not on file Legal Sex Female 5:17 AM PRINCIPAL EMBEDDED SOFTWARE ENGINEER Gender Identity Not on file Sexual Orientation Not on file documented as of this encounter Plan of Treatment Not on file documented as of this encounter Visit Diagnoses Diagnosis Degeneration of lumbar or lumbosacral intervertebral disc- Primary documented in this encounter Care Teams Systems Eng Relationship Specialty Start Date End Date Oleg Hamilton MD PCP - General 06/04/04 documented as of this encounter
--- OUTSIDE RECORDS SUMMARY | 2024-10-24 17:17 | XMS_ITS | Encounter Summary ---
Author Organization [facility] Address [address] [place] [address] Care Team Providers Care Electrical Engineering Teacher Name Role Phone Oleg Hamilton MD Primary Care Provider +1- [phone] Encounter Details Date Type Department Care Team (Latest Contact Info) Description 05/19/2004 Outpatient Historical [facility] [place] [place] [facility] Hernan [place] MD [address] [place] [address] [id number] Diverticulitis of colon (Primary Dx) Social History Tobacco Use Types Packs/Day Years Used Date Smoking Tobacco: Never Assessed Comments Unknown Sex and Gender Information Value Date Recorded Sex Assigned at Not on file Legal Sex Female 5:17 AM ELEVATOR INSTALLER APPRENTICE Gender Identity Not on file Sexual Orientation Not on file documented as of this encounter Plan of Treatment Not on file documented as of this encounter Visit Diagnoses Diagnosis Diverticulitis of colon- Primary Diverticulitis of colon (without mention of hemorrhage) documented in this encounter Care Teams Electrical Engineering Teacher Relationship Specialty Start Date End Date Oleg Hamilton MD PCP - General 06/04/04 documented as of this encounter
--- OUTSIDE RECORDS SUMMARY | 2024-10-24 17:17 | XMS_ITS | Encounter Summary ---
Author Organization [facility] Address [address] [place] [address] Care Team Providers Care Panel Fitter Name Role Phone Oleg Hamilton MD Primary Care Provider +1- [phone] Encounter Details Date Type Department Care Team (Latest Contact Info) Description 06/17/2004 Outpatient Historical [facility] [address] [place] [address] [address] [place] [address] Sumanth Moreno MD [address] [place] [address] IRON DEFIC ANEMIA NOS (Primary Dx); ADV EFFECT MED/BIOL SUB NOS Social History Tobacco Use Types Packs/Day Years Used Date Smoking Tobacco: Never Assessed Comments Unknown Sex and Gender Information Value Date Recorded Sex Assigned at Not on file Legal Sex Female 5:17 AM CERTIFIED PROCEDURAL CODER Gender Identity Not on file Sexual Orientation Not on file documented as of this encounter Plan of Treatment Not on file documented as of this encounter Visit Diagnoses Diagnosis Iron deficiency anemia, unspecified- Primary Other and unspecified adverse effect of drug, medicinal and biological substance documented in this encounter Care Teams Panel Fitter Relationship Specialty Start Date End Date Oleg Hamilton MD PCP - General 06/04/04 documented as of this encounter
--- OUTSIDE RECORDS SUMMARY | 2024-10-24 17:17 | XMS_ITS | Encounter Summary ---
Author Organization [facility] Address [address] [place] [address] Care Team Providers Care Package Line Operator Name Role Phone Oleg Hamilton MD Primary Care Provider +1- [phone] Encounter Details Date Type Department Care Team (Late st Contact Info) Description 10/06/2006 Outpatient Historical [facility] [address] [place] [address] [address] [place] [phone] Social History Tobacco Use Types Packs/Day Years Used Date Smoking Tobacco: Never Assessed Comments Unknown Sex and Gender Information Value Date Recorded Sex Assigned at Not on file Legal Sex Female 5:17 AM ASSOCIATE OF SCIENCE IN NURSING Gender Identity Not on file Sexual Orientation Not on file documented as of this encounter Plan of Treatment Not on file documented as of this encounter Visit Diagnoses Not on filedocumented in this encounter Care Teams Package Line Operator Relationship Specialty Start Date End Date Oleg Hamilton MD PCP - General 06/04/04 documented as of this encounter
--- OUTSIDE RECORDS SUMMARY | 2024-10-24 17:17 | XMS_ITS | Data Portability ---
Author Organization [facility] [place] Address [address] [place] [address] Care Team Providers Care Engine Assembler Name Role Phone JOHNLORNALESLI Referring Provider Assessment Encounter Date Assessment Date Assessment LastModified by Organization Details LastModified Time 03/15/2024 03/15/2024 ASSESSMENT Neuropathic pain Intervertebral disc disorder with radiculopathy, lumbar region Chronic pain syndrome The patient has had an adequate trial of greater than several years of rest, exercise, physical therapy, medications, multimodal treatment, and the passage of time without improvement of symptoms. The pain has significant impact on daily quality of life. The patient's current clinical issues presents a moderate level of risk/complexity, which may require ongoing, longitudinal care. Blood thinners: no Diabetes: no Tobacco: no PLAN Continue strict adherence to postoperative instructions FUV 6 weeks Risks/benefits of pharmacologic and interventional treatments discussed and questions answered. 23 noncontiguous minutes were spent evaluating and educating the patient, coordinating care, reviewing imaging and documentation, managing medications, and discussing treatment options. LASHA Kauffman DO, MBA Interventional Pain Medicine [facility] Not available 03/17/2024 21:49:29 04/23/2024 04/23/2024 ASSESSMENT Neuropathic pain Intervertebral disc disorder with radiculopathy, lumbar region Chronic pain syndrome The patient's current clinical issues presents a moderate level of risk/complexity, which may require ongoing, longitudinal care. Blood thinners: no Diabetes: no Tobacco: no PLAN Resume low-impact PT, home exercise as tolerated Continue optimization with reps RTC as needed Risks/benefits of pharmacologic and interventional treatments discussed and questions answered. 14 noncontiguous minutes were spent evaluating and educating the patient, coordinating care, reviewing imaging and documentation, managing medications, and discussing treatment options. LASHA Kauffman DO, MBA Interventional Pain Medicine [facility] Not available 04/23/2024 21:59:10 Plan of Treatment Reminders Order Date Submit Date Provider Last Modified By Organization Details Last Modified Time Details Appointments None recorded. Lab None recorded. Referral None recorded. Procedures None recorded. Surgeries None recorded. Imaging None recorded. Medication Orders doxycycline hyclate 100 mg capsule [address] [facility], [address], [place], [place], [id number], 11:21:08 hydrocodone 5 mg-acetamin ophen 325 mg tablet [address] [facility], [address], [place], [place], [id number], 16:39:42 Patient TargetsNo targets recorded. Patient InstructionsNo instructions recorded. Reason for Referral None Reported. Procedures Surgical History Date Name Laterality Status Provider Name and Address Organization Details Recorded Time 03/08/20 24 JF SCS Implant Nevro completed Jhon Kauffman [address] [place] [address], [id number], [facility], [facility] 03/08/2024 23:38:52 Breast Surgery completed [facility], [facility] 02/21/2024 12:52:30 General Surgery completed [facility], [facility] 02/21/2024 12:52:30 Gastrointestinal Surgery completed [facility], [facility] 02/21/2024 12:52:30 Hysterectomy completed [facility], [facility] 02/21/2024 12:52:30 Knee Surgery completed [facility], [facility] 02/21/2024 12:52:30 Abdominal Surgery completed [facility], [facility] 02/21/2024 12:52:30 Nasal Surgery completed [facility], [facility] 02/21/2024 12:52:30 Imaging Results None recorded. Procedure Notes None recorded. Medical Equipment None Reported. Medications Name Sig Start Date Stop Date Status Note LastModified by Organization Details LastModified Time bupropion HCl SR 150 mg tablet,12 hr sustained-re lease TAKE 1 TABLET BY MOUTH TWICE DAILY active Not Available Not Available No t Available doxycycline hyclate 100 mg capsule TAKE ONE CAPSULE BY MOUTH TWICE DAILY FOR FIVE DAYS. active Not Available Not Available N ot Available tizanidine 4 mg tablet TAKE 1 TABLET BY MOUTH EVERY EIGHT hours active Not Available Not Available Not Available hydrocodone 5 mg-acetamino phen 325 mg tablet Take 1 tablet every 8 hours by oral route as needed for 3 days. 2023 active Not Available Not Available Not Avai lable meloxicam 15 mg tablet TAKE 1 TABLET BY MOUTH ONCE DAILY active Not Available Not Available No t Available midodrine 5 mg tablet TAKE ONE TABLET BY MOUTH THREE TIMES DAILY. DO not give last DOSE of DAY AFTER 6pm OR WITHIN FOUR hours of AT BEDTIME. active Not Available Not Available No t Available clobetasol 0.05 % topical cream APPLY TO AFFECTED AREA(S) ONCE DAILY active Not Available Not Available N ot Available potassium chloride ER 10 mEq tablet,exten ded release TAKE 1 TABLET BY MOUTH TWICE DAILY active Not Available Not Available No t Available prochlorpera zine maleate 10 mg tablet TAKE ONE TABLET BY MOUTH EVERY EIGHT hours NEEDED FOR nausea/vomi ting watch FOR sedation. active Not Available Not Available No t Available amitriptylin e 50 mg tablet TAKE 1 TABLET BY MOUTH DAILY AT BEDTIME active Not Available Not Available N ot Available spironolacto ne 25 mg tablet TAKE 1/2 TABLET BY MOUTH DAILY active Not Available Not Available Not Available ondansetron 8 mg disintegrati ng tablet TAKE ONE TABLET BY MOUTH EVERY EIGHT hours needed FOR nausea AND vomiting active Not Available Not Available No t Available dronabinol 2.5 mg capsule TAKE ONE CAPSULE BY MOUTH TWICE DAILY. Take BEFORE LUNCH AND evening meal/dinner . active Not Available Not Available No t Available potassium chloride ER 20 mEq tablet,exten ded release(part /cryst) TAKE TWO TABLETS BY MOUTH THREE TIMES DAILY FOR THREE DAYS THEN TAKE TWO TABLETS BY MOUTH TWICE DAILY active Not Available Not Available No t Available oxycodone-ac etaminophen 10 mg-325 mg tablet TAKE ONE TABLET BY MOUTH EVERY SIX hours NEEDED FOR post-operat ronda pain active Not Available Not Available No t Available pantoprazole 40 mg tablet,delay ed release TAKE 1 TABLET BY MOUTH TWICE DAILY active Not Available Not Available No t Available triamcinolon e acetonide 0.1 % topical ointment Apply a SMALL AMOUNT TWICE DAILY TO itch AREAS of LEGS NEEDED. DO not USE ON face AND BETWEEN LEGS. USE ONLY TWO WEEKS of a MONTH. active Not Available Not Available No t Available docusate sodium 100 mg capsule TAKE ONE CAPSULE BY MOUTH TWICE DAILY active Not Available Not Available No t Available Banophen 25 mg capsule TAKE ONE TO TWO CAPSULES BY MOUTH ONCE DAILY active Not Available Not Available No t Available lisinopril 5 mg tablet TAKE ONE TABLET BY MOUTH DAILY active Not Available Not Available Not Available furosemide 20 mg tablet TAKE 1 TABLET BY MOUTH DAILY active Not Available Not Available Not Available metoprolol succinate ER 25 mg tablet,exten ded release 24 hr TAKE ONE TABLET BY MOUTH ONCE DAILY active Not Available Not Available No t Available diazepam 10 mg tablet Bring TO procedure appointment . DO not take BEFORE instructed TO AT THE clinic. Take THREE TABLETS BEFORE procedure when instructed by procedure staff. Must have grab driver. active Not Available Not Available No t Available lisinopril 2.5 mg tablet TAKE ONE TABLET BY MOUTH DAILY active Not Available Not Available Not Available doxycycline hyclate 100 mg tablet TAKE ONE TABLET BY MOUTH in THE morning AND ONE TABLET BY MOUTH in THE evening. Take with food. active Not Available Not Available No t Available loratadine 10 mg tablet TAKE ONE TABLET BY MOUTH ONCE daily. active Not Available Not Available No t Available duloxetine 60 mg capsule,dahiana yed release TAKE 1 CAPSULE BY MOUTH DAILY active Not Available Not Available Not Available hydrochlorot hiazide 12.5 mg tablet TAKE 1 TO 2 TABLET(S) BY MOUTH ONCE DAILY active Not Available Not Available N ot Available oxycodone 10 mg tablet TAKE ONE TABLET BY MOUTH EVERY EIGHT hours NEEDED FOR post-op pain. active Not Available Not Available No t Available Suboxone 8 mg-2 mg sublingual film take UP TO TWO sublingual strips PER DAY FOR SEVERE pain active Not Available Not Available Not Available Vitals Date Recorded Body height Body mass index (BMI) Body weight Provider Name and Address Organization Details Last Updated DateTime 03/15/2024 152.4 cm 18.7 kg/m2 05553.87 g Jack [facility]CR[facility], [facility] 03/15/2024 09:16:26 Social History None recorded. Functional Status Question Answer Note LastModified by Organizat ion Details LastModified Time What is your level of alcohol consumption? Occasional [email or web address] Information not available 02/21/2024 Mental Status None recorded. Family History Relationship Description Onset Age of this Age Resolved Age Notes LastModified by Organization Details LastModified Time Mother Heart disease [email or web address] Not available 02/20 12:53:14 Mother Diabetes mellitus [email or web address] Not available 02/20 12:53:14 Brother Diabetes mellitus [email or web address] Not available 02/20 12:53:14 Sister Heart disease [email or web address] Not available 02/20 12:53:14 Medical History Condition Response Heart Disease/Disorder ([place], CAD) Y Anxiety/Depression Y Kidney Disease/Disorder Y Anemia/Bleeding disorders Y Arthritis Y Fibromyalgia Y Hypertension Y GI Problems Y Gynecological HistoryNo gynecological history recorded. Obstetrics History GPAL:G 0 P 0 0 0 0 Past Encounters Encounter ID Performer Location Encounter Start Date Encounter Closed Date Diagnosis/Indication Diagnosis SNOMED-CT Code Diagnosis ICD10 Code Diagnosis Note [id number] Jhon Kauffman Surgery DO NOT USE THIS ADDRESS [place] [id number] 03/08/2024 09:11:01 03/14/2024 11:09:04 Postoperative care 977045089 Z48.89 Radiculopa thy due to lumbar intervertebral disc disorder 6557365204 79805 M51.16 Neuropathic pain 8912339 09 M79.2 [id number] Jhon Jamarideidre Douglass [address] [place] [address] 03/15/2024 09:10:50 03/21/2024 12:34:59 Degeneration of lumbar intervertebral disc 77347259 M51.369 Chronic pain syndrome 37 8979409 G89.4 Neuropathic pain 8106149 09 M79.2 [id number] Jhon Jamarideidre Douglass [address] [place] [address] 04/23/2024 13:49:27 04/27/2024 09:37:51 Degeneration of lumbar intervertebral disc 20803578 M51.369 Chronic pain syndrome 37 1657382 G89.4 Neuropathic pain 7474615 09 M79.2 Health Concerns Section Related Observation LastModified by Organization Detai ls LastModified Time None Recorded Concern Status LastModified by Organization Details LastModified Time None Recorded Advance Directives Directive None Recorded Payers Insurance Date Sequence Insurance Name Policy Number Policy Hardy Covered Member ID Hardy Member ID Guarantor Name 04/20/2024 1 [place] Preeti Odom [id number] Preeti Odom Notes Date Note Type Note Provider Name and Address Organization Details Recorded Time 03/15/2024 text/html The patient pres ents with a primary concern of low back and leg pain. Referred by Yariel. Long history of low back and leg pain. Worse with activity/mobility, sitting, standing, walking. Alleviated modestly while recumbent. VAS 8/10 consistently. SCS trial with Dr. Saldivar 11/29/23 culminating in a reported 85% overall pain relief with significant improvements in daily function and sleep. Minimized pain medication over duration of trial. The patient has attempted and exhausted extensive conservative treatments including: rest, warm/cool compress, massage, stretching, home exercise, physical therapy, and medications without significant or long-lasting benefit. 03/08/24: SCS [id number]/14/24: Healing well. Adhered to postoperative instructions. Working with [employer] representatives to optimize therapy. MEDICATIONSEffective:I neffective: amitriptyline, tizanidine, duloxetineUnable to tolerate: IMAGINGAll available imaging has been reviewed and relayed at length. Jhon Kauffman [address] [place] [address], [address], [place] - [facility] 03/17/2024 21:49:44 04/23/2024 text/html The patient pres ents with a primary concern of low back and leg pain. Referred by Yariel. Long history of low back and leg pain. Worse with activity/mobility, sitting, standing, walking. Alleviated modestly while recumbent. VAS 8/10 consistently. SCS trial with Dr. Saldivar 11/29/23 culminating in a reported 85% overall pain relief with significant improvements in daily function and sleep. Minimized pain medication over duration of trial. The patient has attempted and exhausted extensive conservative treatments including: rest, warm/cool compress, massage, stretching, home exercise, physical therapy, and medications without significant or long-lasting benefit. 03/08/24: SCS [id number]/14/24: Healing well. Adhered to postoperative instructions. Working with [employer] representatives to optimize therapy.04/23/24: Doing very well. Continue optimization with [employer] team. MEDICATIONSEffective:I neffective: amitriptyline, tizanidine, duloxetineUnable to tolerate: IMAGINGAll available imaging has been reviewed and relayed at length. Jhon Kauffman [address] [place] [address], [place], [address], [place] - [facility] 04/23/2024 21:59:23 OBGyn Episode No OBEpisode recorded.
--- OUTSIDE RECORDS SUMMARY | 2024-10-24 17:17 | XMS_ITS | Encounter Summary ---
Author Organization [facility] Address [address] [place] [address] Care Team Providers Care Floor Worker Well Service Name Role Phone Oleg Hamilton MD Primary Care Provider +1- [phone] Encounter Details Date Type Department Care Team (Late st Contact Info) Description 09/16/2006 Emergency [facility] Emergency Department [address] [place] [phone] James Nicholas MD NO ADDRESS ON FILE Lumbago (Primary Dx) Social History Tobacco Use Types Packs/Day Years Used Date Smoking Tobacco: Never Assessed Comments Unknown Sex and Gender Information Value Date Recorded Sex Assigned at Not on file Legal 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
--- OUTSIDE RECORDS SUMMARY | 2024-10-24 17:17 | XMS_ITS | Encounter Summary ---
Author Organization [facility] Address [address] [place] [address] Care Team Providers Care Endodontics Dentist Name Role Phone Oleg [place] MD Primary Care Provider +1- [phone] Encounter Details Date Type Department Care Team (Latest Contact Info) Description 06/15/2004 Outpatient Historical [facility] Internal Medicine- [place] [address] [place] [address] Oleg [place] MD [address] [place] [address] LUMBAGO (Primary Dx); ACUTE STRESS REACT NOS Social History Tobacco Use Types Packs/Day Years Used Date Smoking Tobacco: Never Assessed Comments Unknown Sex and Gender Information Value Date Recorded Sex Assigned at Not on file Legal 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
--- OUTSIDE RECORDS SUMMARY | 2024-10-24 17:17 | XMS_ITS | Encounter Summary ---
Author Organization [facility] Address [address] [place] [address] Care Team Providers Care Golf Player Assistant Name Role Phone Oleg [place] MD Primary Care Provider +1- [phone] Encounter Details Date Type Department Care Team (Latest Contact Info) Description 09/09/2005 Outpatient Historical [facility] Internal Medicine- [place] [address] [place] [address] Oleg [place] MD [address] [place] [address] Other and Unspecified Hyperlipidemia (Primary Dx); Unspecified Peripheral Vascular Disease; Encounter for Long-Term (Current) Use of Other Medications Social History Tobacco Use Types Packs/Day Years Used Date Smoking Tobacco: Never Assessed Comments Unknown Sex and Gender Information Value Date Recorded Sex Assigned at Not on file 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
--- OUTSIDE RECORDS SUMMARY | 2024-10-24 17:17 | XMS_ITS | Encounter Summary ---
Author Organization [facility] Address [address] [place] [address] Care Team Providers Care Parking Patroller Name Role Phone Oleg [place] MD Primary Care Provider +1- [phone] Encounter Details Date Type Department Care Team (Latest Contact Info) Description 05/27/2004 Outpatient Historical [facility] Cancer and Hematology [address] [place] [address] [address] [place] [address] Jimi Adams MD [address] [place] [address] IRON DEFIC ANEMIA NOS (Primary Dx); NAUSEA ALONE; ADV EFFECT MED/BIOL SUB NOS Social History Tobacco Use Types Packs/Day Years Used Date Smoking Tobacco: Never Assessed Comments Unknown Sex and Gender Information Value Date Recorded Sex Assigned at Not on file Legal 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
--- OUTSIDE RECORDS SUMMARY | 2024-10-24 17:17 | XMS_ITS | Encounter Summary ---
Author Organization [facility] Address [address] [place] [address] Care Team Providers Care Administrative Resources Associate Name Role Phone Oleg Hamilton MD Primary Care Provider +1- [phone] Encounter Details Date Type Department Care Team (Latest Contact Info) Description 12/24/2004 Outpatient Historical [facility] [address] [place] [address] Sidney Cortés MD NO ADDRESS ON FILE LUMB/LUMBOSAC DISC DEGEN (Primary Dx); LUMBAGO Social History Tobacco Use Types Packs/Day Years Used Date Smoking Tobacco: Never Assessed Comments Unknown Sex and Gender Information Value Date Recorded Sex Assigned at Not on file Legal Sex Female 5:17 AM DIRECTOR INFORMATION Gender Identity Not on file Sexual Orientation Not on file documented as of this encounter Plan of Treatment Not on file documented as of this encounter Visit Diagnoses Diagnosis Degeneration of lumbar or lumbosacral intervertebral disc- Primary Lumbago documented in this encounter Care Teams Administrative Resources Associate Relationship Specialty Start Date End Date Oleg Hamilton MD PCP - General 06/04/04 documented as of this encounter
--- OUTSIDE RECORDS SUMMARY | 2024-10-24 17:17 | XMS_ITS | Encounter Summary ---
Author Organization [facility] Address [address] [place] [address] Care Team Providers Care Legal Nurse Consultant Name Role Phone Oleg Hamilton MD Primary Care Provider +1- [phone] Encounter Details Date Type Department Care Team (Latest Contact Info) Description 06/27/2003 Outpatient Historical [facility] Family Medicine [address] [address] Marion Davis MD NO ADDRESS ON FILE ANEMIA NOS (Primary Dx) Social History Tobacco Use Types Packs/Day Years Used Date Smoking Tobacco: Never Assessed Comments Unknown Sex and Gender Information Value Date Recorded Sex Assigned at Not on file Legal Sex Female 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
--- OUTSIDE RECORDS SUMMARY | 2024-10-24 17:17 | XMS_ITS | Encounter Summary ---
Author Organization [facility] Address [address] [place] [address] Care Team Providers Care Dam Tender Assistant Name Role Phone Oleg Hamilton MD Primary Care Provider +1- [phone] Encounter Details Date Type Department Care Team (Latest Contact Info) Description 04/15/2006 Outpatient Historical [facility] Cancer and Hematology [address] [place] [address] [address] [place] [phone] Jimi Adams MD [address] [place] [address] Unspecified Iron Deficiency Anemia (Primary Dx); Malig Sarmad Abdomen Social History Tobacco Use Types Packs/Day Years Used Date Smoking Tobacco: Never Assessed Comments Unknown Sex and Gender Information Value Date Recorded Sex Assigned at Not on file Legal Sex Female 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
--- OUTSIDE RECORDS SUMMARY | 2024-10-24 17:17 | XMS_ITS | Encounter Summary ---
Author Organization [facility] Address [address] [place] [address] Care Team Providers Care Corporate Travel Agent Name Role Phone Oleg Hamilton MD Primary Care Provider +1- [phone] Encounter Details Date Type Department Care Team (Latest Contact Info) Description 04/01/[address] 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
--- OUTSIDE RECORDS SUMMARY | 2024-10-24 17:17 | XMS_ITS | Encounter Summary ---
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) Social History Tobacco Use Types Packs/Day Years Used Date Smoking Tobacco: Never Assessed Comments Unknown Sex and Gender Information Value Date Recorded Sex Assigned at Not on file Legal Sex Female 5:17 AM ENGINEERING SPECIALIST Gender Identity Not on file Sexual Orientation Not on file documented as of this encounter Plan of Treatment Not on file documented as of this encounter Visit Diagnoses Diagnosis Lumbosacral spondylosis without myelopathy- Primary documented in this encounter Care Teams Core Stacker Relationship Specialty Start Date End Date Oleg Hamilton MD PCP - General 06/04/04 documented as of this encounter
--- OUTSIDE RECORDS SUMMARY | 2024-10-24 17:17 | XMS_ITS | Encounter Summary ---
Author Organization [facility] Address [address] [place] [address] Care Team Providers Care Paperhanger And Painter Name Role Phone Oleg Hamilton MD Primary Care Provider +1- [phone] Encounter Details Date Type Department Care Team (Latest Contact Info) Description 11/11/2004 Outpatient Historical [facility] Cancer and Hematology [address] [place] [address] [address] [place] [address] Jimi Adams MD [address] [place] [address] IRON DEFIC ANEMIA NOS (Primary Dx); ADV EFFECT MED/BIOL SUB NOS; OTHER BACK SYMPTOMS Social History Tobacco Use Types Packs/Day Years Used Date Smoking Tobacco: Never Assessed Comments Unknown Sex and Gender Information Value Date Recorded Sex Assigned at Not on file Legal Sex Female 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
--- OUTSIDE RECORDS SUMMARY | 2024-10-24 17:17 | XMS_ITS | Encounter Summary ---
Author Organization [facility] Address [address] [place] [address] Care Team Providers Care Industrial Court Magistrate Name Role Phone Oleg Hamilton MD Primary Care Provider +1- [phone] Encounter Details Date Type Department Care Team (Latest Contact Info) Description 10/11/2005 Outpatient Historical [facility] Cancer and Hematology [address] [place] [address] [address] [place] [address] Jimi Adams MD [address] [place] [address] Unspecified Iron Deficiency Anemia (Primary Dx) Social History Tobacco Use Types Packs/Day Years Used Date Smoking Tobacco: Never Assessed Comments Unknown Sex and Gender Information Value Date Recorded Sex Assigned at Not on file Legal Sex Female 5:17 AM TENSION MACHINE OPERATOR Gender Identity Not on file Sexual Orientation Not on file documented as of this encounter Plan of Treatment Not on file documented as of this encounter Visit Diagnoses Diagnosis Iron deficiency anemia, unspecified- Primary documented in this encounter Care Teams Industrial Court Magistrate Relationship Specialty Start Date End Date Oleg Hamilton MD PCP - General 06/04/04 documented as of this encounter
--- OUTSIDE RECORDS SUMMARY | 2024-10-24 17:17 | XMS_ITS | Encounter Summary ---
Author Organization [facility] Address [address] [place] [address] Care Team Providers Care Low Altitude Air Defense Gunner Name Role Phone Oleg Hamilton MD Primary Care Provider +1- [phone] Encounter Details Date Type Department Care Team (Latest Contact Info) Description 12/03/2004 Outpatient Historical [facility] Pain Management Procedures [address] [place] [phone] Sidney Cortés MD NO ADDRESS ON FILE LUMBAR DISC DISPLACEMENT (Primary Dx) Social History Tobacco Use Types Packs/Day Years Used Date Smoking Tobacco: Never Assessed Comments Unknown Sex and Gender Information Value Date Recorded Sex Assigned at Not on file Legal Sex Female 5:17 AM BRIDGE BUILDER Gender Identity Not on file Sexual Orientation Not on file documented as of this encounter Plan of Treatment Not on file documented as of this encounter Visit Diagnoses Diagnosis Displacement of lumbar intervertebral disc without myelopathy- Primary documented in this encounter Care Teams Low Altitude Air Defense Gunner Relationship Specialty Start Date End Date Oleg Hamilton MD PCP - General 06/04/04 documented as of this encounter
--- OUTSIDE RECORDS SUMMARY | 2024-10-24 17:17 | XMS_ITS | Encounter Summary ---
Author Organization [facility] Address [address] [place] [address] Care Team Providers Care Powder Worker Name Role Phone Oleg Hamilton MD Primary Care Provider +1- [phone] Encounter Details Date Type Department Care Team (Latest Contact Info) Description 12/03/2004 Outpatient Historical [facility] [address] [place] [address] Sidney Cortés MD NO ADDRESS ON FILE LUMB/LUMBOSAC DISC DEGEN (Primary Dx); LUMBAGO Social History Tobacco Use Types Packs/Day Years Used Date Smoking Tobacco: Never Assessed Comments Unknown Sex and Gender Information Value Date Recorded Sex Assigned at Not on file Legal Sex Female 5:17 AM BRANCH RETAIL EXECUTIVE Gender Identity Not on file Sexual Orientation Not on file documented as of this encounter Plan of Treatment Not on file documented as of this encounter Visit Diagnoses Diagnosis Degeneration of lumbar or lumbosacral intervertebral disc- Primary Lumbago documented in this encounter Care Teams Powder Worker Relationship Specialty Start Date End Date Oleg Hamilton MD PCP - General 06/04/04 documented as of this encounter
--- OUTSIDE RECORDS SUMMARY | 2024-10-24 17:17 | XMS_ITS | Encounter Summary ---
Author Organization [facility] Address [address] [place] [address] Care Team Providers Care Lithopress Operator Name Role Phone Oleg Hamilton MD Primary Care Provider +1- [phone] Encounter Details Date Type Department Care Team (Latest Contact Info) Description 10/18/2006 Outpatient Historical [facility] Pain Management Procedures [address] [place] [address] Sidney Cortés MD NO ADDRESS ON FILE Disorders of Sacrum (Primary Dx) Social History Tobacco Use Types Packs/Day Years Used Date Smoking Tobacco: Never Assessed Comments Unknown Sex and Gender Information Value Date Recorded Sex Assigned at Not on file Legal Sex Female 5:17 AM DEVELOPMENT VICE PRESIDENT Gender Identity Not on file Sexual Orientation Not on file documented as of this encounter Plan of Treatment Not on file documented as of this encounter Visit Diagnoses Diagnosis Disorders of sacrum- Primary documented in this encounter Care Teams Lithopress Operator Relationship Specialty Start Date End Date Oleg Hamilton MD PCP - General 06/04/04 documented as of this encounter
--- OUTSIDE RECORDS SUMMARY | 2024-10-24 17:17 | XMS_ITS | Encounter Summary ---
Author Organization [facility] Address [address] [place] [address] Care Team Providers Care Nanny Babysitter Name Role Phone Oleg Hamilton MD Primary Care Provider +1- [phone] Encounter Details Date Type Department Care Team (Latest Contact Info) Description 10/29/2004 Outpatient Historical [facility] [address] [place] [address] [facility] [address] [place] [address] Sidney Cortés MD NO ADDRESS ON FILE LUMB/LUMBOSAC DISC DEGEN (Primary Dx) Social History Tobacco Use Types Packs/Day Years Used Date Smoking Tobacco: Never Assessed Comments Unknown Sex and Gender Information Value Date Recorded Sex Assigned at Not on file Legal Sex Female 5:17 AM MEDICAL/SURGERY REGISTERED NURSE Gender Identity Not on file Sexual Orientation Not on file documented as of this encounter Plan of Treatment Not on file documented as of this encounter Visit Diagnoses Diagnosis Degeneration of lumbar or lumbosacral intervertebral disc- Primary documented in this encounter Care Teams Nanny Babysitter Relationship Specialty Start Date End Date Oleg Hamilton MD PCP - General 06/04/04 documented as of this encounter
--- OUTSIDE RECORDS SUMMARY | 2024-10-24 17:17 | XMS_ITS | Encounter Summary ---
Author Organization [facility] Address [address] [place] [address] Care Team Providers Care Occupational Safety Specialist Name Role Phone Oleg Hamilton MD Primary Care Provider +1- [phone] Encounter Details Date Type Department Care Team (Late st Contact Info) Description 06/25/2004 Outpatient Historical [facility] Internal Medicine- [place] [address] [facility] [address] [place] [address] Oleg Hamilton MD [address] [facility] [address] [place] [address] Social History Tobacco Use Types Packs/Day Years Used Date Smoking Tobacco: Never Assessed Comments Unknown Sex and Gender Information Value Date Recorded Sex Assigned at Not on file Legal Sex Female 5:17 AM BLASTING WORKER Gender Identity Not on file Sexual Orientation Not on file documented as of this encounter Plan of Treatment Not on file documented as of this encounter Visit Diagnoses Not on filedocumented in this encounter Care Teams Occupational Safety Specialist Relationship Specialty Start Date End Date Oleg Hamilton MD PCP - General 06/04/04 documented as of this encounter
--- OUTSIDE RECORDS SUMMARY | 2024-10-24 17:17 | XMS_ITS | Encounter Summary ---
Author Organization [facility] Address [address] [place] [address] Care Team Providers Care Fish Bait Processing Supervisor Name Role Phone Oleg Hamilton MD Primary Care Provider +1- [phone] Encounter Details Date Type Department Care Team (Latest Contact Info) Description 10/10/2004 Outpatient [facility] Care [facility] [address] [place] [address] Devin Machado MD [address] [place] [address] CALCULUS OF KIDNEY (Primary Dx) Social History Tobacco Use Types Packs/Day Years Used Date Smoking Tobacco: Never Assessed Comments Unknown Sex and Gender Information Value Date Recorded Sex Assigned at Not on file Legal Sex Female 5:17 AM SHINGLES ROOFER HELPER Gender Identity Not on file Sexual Orientation Not on file documented as of this encounter Plan of Treatment Not on file documented as of this encounter Visit Diagnoses Diagnosis Calculus of kidney- Primary documented in this encounter Care Teams Fish Bait Processing Supervisor Relationship Specialty Start Date End Date Oleg Hamilton MD PCP - General 06/04/04 documented as of this encounter
--- OUTSIDE RECORDS SUMMARY | 2024-10-24 17:17 | XMS_ITS | Encounter Summary ---
Author Organization [facility] Address [address] [place] [address] Care Team Providers Care Hockey Scout Name Role Phone Oleg Hamilton MD Primary Care Provider +1- [phone] Encounter Details Date Type Department Care Team (Latest Contact Info) Description 10/22/[address] [facility] [address] [place] [address] Sidney Cortés MD NO ADDRESS ON FILE LUMB/LUMBOSAC DISC DEGEN (Primary Dx); LUMBAGO; OTHER BACK SYMPTOMS Social History Tobacco Use Types Packs/Day Years Used Date Smoking Tobacco: Never Assessed Comments Unknown Sex and Gender Information Value Date Recorded Sex Assigned at Not on file Legal Sex Female 5:17 AM FORMING MACHINE UPKEEP MECHANIC Gender Identity Not on file Sexual Orientation Not on file documented as of this encounter Plan of Treatment Not on file documented as of this encounter Visit Diagnoses Diagnosis Degeneration of lumbar or lumbosacral intervertebral disc- Primary Lumbago Other symptoms referable to back documented in this encounter Care Teams Hockey Scout Relationship Specialty Start Date End Date Oleg Hamilton MD PCP - General 06/04/04 documented as of this encounter
--- OUTSIDE RECORDS SUMMARY | 2024-10-24 17:17 | XMS_ITS | Encounter Summary ---
Author Organization [facility] Address [address] [place] [address] Care Team Providers Care Senior Product Development Scientist Name Role Phone Oleg Hamilton MD Primary Care Provider +1- [phone] Encounter Details Date Type Department Care Team (Latest Contact Info) Description 03/01/[address] [facility] Gastroenterology- [place] [address] [address] Shashi Ag MD [address] [facility] [address] [place] [address] Acute Gastric Ulcer with Hemorrhage, without Mention of Obstruction (Primary Dx); Unspecified Iron Deficiency Anemia Social History Tobacco Use Types Packs/Day Years Used Date Smoking Tobacco: Never Assessed Comments Unknown Sex and Gender Information Value Date Recorded Sex Assigned at Not on file Legal Sex Female 5:17 AM SEWING MACHINES SALESPERSON Gender Identity Not on file Sexual Orientation Not on file documented as of this encounter Plan of Treatment Not on file documented as of this encounter Visit Diagnoses Diagnosis Acute gastric ulcer with hemorrhage, without mention of obstruction- Primary Iron deficiency anemia, unspecified documented in this encounter Care Teams Senior Product Development Scientist Relationship Specialty Start Date End Date Oleg Hamilton MD PCP - General 06/04/04 documented as of this encounter
--- OUTSIDE RECORDS SUMMARY | 2024-10-24 17:17 | XMS_ITS | Encounter Summary ---
Author Organization [facility] Address [address] [place] [address] Care Team Providers Care Credit Verification Clerk Name Role Phone Oleg Hamilton MD Primary Care Provider +1- [phone] Encounter Details Date Type Department Care Team (Latest Contact Info) Description 12/24/2004 Outpatient Historical [facility] [address] [place] [address] [facility] [address] [place] [phone] Sidney Cortés MD NO ADDRESS ON FILE LUMB/LUMBOSAC DISC DEGEN (Primary Dx) Social History Tobacco Use Types Packs/Day Years Used Date Smoking Tobacco: Never Assessed Comments Unknown Sex and Gender Information Value Date Recorded Sex Assigned at Not on file Legal Sex Female 5:17 AM PALAEONTOLOGIST Gender Identity Not on file Sexual Orientation Not on file documented as of this encounter Plan of Treatment Not on file documented as of this encounter Visit Diagnoses Diagnosis Degeneration of lumbar or lumbosacral intervertebral disc- Primary documented in this encounter Care Teams Credit Verification Clerk Relationship Specialty Start Date End Date Oleg Hamilton MD PCP - General 06/04/04 documented as of this encounter
--- OUTSIDE RECORDS SUMMARY | 2024-10-24 17:17 | XMS_ITS | Encounter Summary ---
Author Organization [facility] Address [address] [place] [address] Care Team Providers Care Registered Public Health Nurse Name Role Phone Oleg Hamilton MD Primary Care Provider +1- [phone] Encounter Details Date Type Department Care Team (Latest Contact Info) Description 06/05/2004 Outpatient Historical [facility] Cancer and Hematology [address] [place] [address] [address] [place] [address] Jimi Adams MD [address] [place] [address] IRON DEFIC ANEMIA NOS (Primary Dx); NAUSEA ALONE; ADV EFFECT MED/BIOL SUB NOS Social History Tobacco Use Types Packs/Day Years Used Date Smoking Tobacco: Never Assessed Comments Unknown Sex and Gender Information Value Date Recorded Sex Assigned at Not on file Legal Sex Female 5:17 AM PARTS ORDER AND STOCK CLERK Gender Identity Not on file Sexual Orientation Not on file documented as of this encounter Plan of Treatment Not on file documented as of this encounter Visit Diagnoses Diagnosis Iron deficiency anemia, unspecified- Primary Nausea alone Other and unspecified adverse effect of drug, medicinal and biological substance documented in this encounter Care Teams Registered Public Health Nurse Relationship Specialty Start Date End Date Oleg Hamilton MD PCP - General 06/04/04 documented as of this encounter
--- OUTSIDE RECORDS SUMMARY | 2024-10-24 17:17 | XMS_ITS | Encounter Summary ---
Author Organization [facility] Address [address] [place] [address] Care Team Providers Care General Maintenance Engineer Name Role Phone Oleg Hamilton MD Primary Care Provider +1- [phone] Encounter Details Date Type Department Care Team (Latest Contact Info) Description 06/12/2003 Outpatient [facility] Medicine [address] [address] Marion Davis MD NO ADDRESS ON FILE ANEMIA NOS (Primary Dx); CHOLELITHIASIS NOS; OTHER MALAISE AND FATIGUE; SCREENING-THYROID DISORDER Social History Tobacco Use Types Packs/Day Years Used Date Smoking Tobacco: Never Assessed Comments Unknown Sex and Gender Information Value Date Recorded Sex Assigned at Not on file Legal Sex Female 5:17 AM IMPREGNATOR AND DRIER Gender Identity Not on file Sexual Orientation Not on file documented as of this encounter Plan of Treatment Not on file documented as of this encounter Visit Diagnoses Diagnosis Anemia, unspecified- Primary Calculus of gallbladder without mention of cholecystitis or obstruction Other malaise and fatigue Screening for thyroid disorder documented in this encounter Care Teams General Maintenance Engineer Relationship Specialty Start Date End Date Oleg Hamilton MD PCP - General 06/04/04 documented as of this encounter
--- OUTSIDE RECORDS SUMMARY | 2024-10-24 17:17 | XMS_ITS | Encounter Summary ---
Author Organization [facility] Address [address] [place] [address] Care Team Providers Care Quality Lead Name Role Phone Oleg Hamilton MD Primary Care Provider +1- [phone] Encounter Details Date Type Department Care Team (Latest Contact Info) Description 10/18/2006 Outpatient Historical [facility] [address] [place] [address] Sidney Cortés MD NO ADDRESS ON FILE Disorders of Sacrum (Primary Dx); Lumbago Social History Tobacco Use Types Packs/Day Years Used Date Smoking Tobacco: Never Assessed Comments Unknown Sex and Gender Information Value Date Recorded Sex Assigned at Not on file Legal Sex Female 5:17 AM MOTION PICTURE EQUIPMENT MACHINIST Gender Identity Not on file Sexual Orientation Not on file documented as of this encounter Plan of Treatment Not on file documented as of this encounter Visit Diagnoses Diagnosis Disorders of sacrum- Primary Lumbago documented in this encounter Care Teams Quality Lead Relationship Specialty Start Date End Date Oleg Hamilton MD PCP - General 06/04/04 documented as of this encounter
--- OUTSIDE RECORDS SUMMARY | 2024-10-24 17:17 | XMS_ITS | Encounter Summary ---
Author Organization [facility] Address [address] [place] [address] Care Team Providers Care Bagger And Stock Handler Helper Name Role Phone Oleg Hamilton MD Primary Care Provider +1- [phone] Encounter Details Date Type Department Care Team (Latest Contact Info) Description 05/27/2004 Outpatient Historical [facility] [place] [place] Cancer and Hematology [address] [place] [address] [address] [place] [address] Jimi Adams MD [address] [place] [address] IRON DEFIC ANEMIA NOS (Primary Dx) Social History Tobacco Use Types Packs/Day Years Used Date Smoking Tobacco: Never Assessed Comments Unknown Sex and Gender Information Value Date Recorded Sex Assigned at Not on file Legal Sex Female 5:17 AM DOT COMPLIANCE MANAGER Gender Identity Not on file Sexual Orientation Not on file documented as of this encounter Plan of Treatment Not on file documented as of this encounter Visit Diagnoses Diagnosis Iron deficiency anemia, unspecified- Primary documented in this encounter Care Teams Bagger And Stock Handler Helper Relationship Specialty Start Date End Date Oleg Hamilton MD PCP - General 06/04/04 documented as of this encounter
--- OUTSIDE RECORDS SUMMARY | 2024-10-24 17:17 | XMS_ITS | Encounter Summary ---
Author Organization [facility] Address [address] [place] [address] Care Team Providers Care Patrol Driver Name Role Phone Oleg Hamilton MD Primary Care Provider +1- [phone] Encounter Details Date Type Department Care Team (Latest Contact Info) Description 06/04/2004 Outpatient Historical [facility] [place] [address] [place] [address] Oleg Hamilton MD [address] [facility] [address] [place] [address] LUMB/LUMBOSAC DISC DEGEN (Primary Dx) Social History Tobacco Use Types Packs/Day Years Used Date Smoking Tobacco: Never Assessed Comments Unknown Sex and Gender Information Value Date Recorded Sex Assigned at Not on file Legal Sex Female 5:17 AM ACTIVATED SLUDGE OPERATOR Gender Identity Not on file Sexual Orientation Not on file documented as of this encounter Plan of Treatment Not on file documented as of this encounter Visit Diagnoses Diagnosis Degeneration of lumbar or lumbosacral intervertebral disc- Primary documented in this encounter Care Teams Patrol Driver Relationship Specialty Start Date End Date Oleg Hamilton MD PCP - General 06/04/04 documented as of this encounter
--- OUTSIDE RECORDS SUMMARY | 2024-10-24 17:17 | XMS_ITS | Encounter Summary ---
Author Organization [facility] Address [address] [place] [address] Care Team Providers Care Negative Notcher Name Role Phone Oleg Hamilton MD Primary Care Provider +1- [phone] Encounter Details Date Type Department Care Team (Latest Contact Info) Description 09/07/2004 Outpatient Historical [facility] [place] [address] [facility] [address] [place] [address] Oleg Hamilton MD [address] [place] [address] NAUSEA WITH VOMITING (Primary Dx); FEMALE STRESS INCONTINENCE; LUMBAGO; IRON DEFIC ANEMIA NOS Social History Tobacco Use Types Packs/Day Years Used Date Smoking Tobacco: Never Assessed Comments Unknown Sex and Gender Information Value Date Recorded Sex Assigned at Not on file Legal Sex Female 5:17 AM MALT LOADER Gender Identity Not on file Sexual Orientation Not on file documented as of this encounter Plan of Treatment Not on file documented as of this encounter Visit Diagnoses Diagnosis Nausea with vomiting- Primary Female stress incontinence Lumbago Iron deficiency anemia, unspecified documented in this encounter Care Teams Negative Notcher Relationship Specialty Start Date End Date Oleg Hamilton MD PCP - General 06/04/04 documented as of this encounter
--- OUTSIDE RECORDS SUMMARY | 2024-10-24 17:17 | XMS_ITS | Encounter Summary ---
Author Organization [facility] Address [address] [place] [address] Care Team Providers Care Deal Architect Name Role Phone Oleg Hamilton MD Primary Care Provider +1- [phone] Encounter Details Date Type Department Care Team (Latest Contact Info) Description 09/22/2006 Outpatient Historical [facility] [place] Cancer and Hematology [address] [place] [address] [address] [place] [address] Jimi Adams MD [address] [place] [address] Unspecified Iron Deficiency Anemia (Primary Dx); Adv Eff Med/Biol NEC/NOS Social History Tobacco Use Types Packs/Day Years Used Date Smoking Tobacco: Never Assessed Comments Unknown Sex and Gender Information Value Date Recorded Sex Assigned at Not on file Legal Sex Female 5:17 AM SCREEN PRINTING EQUIPMENT SETTER Gender Identity Not on file Sexual Orientation Not on file documented as of this encounter Plan of Treatment Not on file documented as of this encounter Visit Diagnoses Diagnosis Iron deficiency anemia, unspecified- Primary Unspecified adverse effect of other drug, medicinal and biological substance(995.29) Unspecified adverse effect of other drug, medicinal and biological substance documented in this encounter Care Teams Deal Architect Relationship Specialty Start Date End Date Oleg Hamilton MD PCP - General 06/04/04 documented as of this encounter
--- OUTSIDE RECORDS SUMMARY | 2024-10-24 17:17 | XMS_ITS | Encounter Summary ---
Author Organization [facility] Address [address] [place] [address] Care Team Providers Care Explosive Operator Supervisor Name Role Phone Oleg Hamilton MD Primary Care Provider +1- [phone] Encounter Details Date Type Department Care Team (Latest Contact Info) Description 10/14/2004 Outpatient Historical [facility] Cancer and Hematology [address] [place] [address] [address] [place] [address] Jimi Adams MD [address] [place] [address] IRON DEFIC ANEMIA NOS (Primary Dx); NAUSEA ALONE Social History Tobacco Use Types Packs/Day Years Used Date Smoking Tobacco: Never Assessed Comments Unknown Sex and Gender Information Value Date Recorded Sex Assigned at Not on file Legal Sex Female 5:17 AM SUPERVISOR AIRCRAFT MAINTENANCE Gender Identity Not on file Sexual Orientation Not on file documented as of this encounter Plan of Treatment Not on file documented as of this encounter Visit Diagnoses Diagnosis Iron deficiency anemia, unspecified- Primary Nausea alone documented in this encounter Care Teams Explosive Operator Supervisor Relationship Specialty Start Date End Date Oleg Hamilton MD PCP - General 06/04/04 documented as of this encounter
--- OUTSIDE RECORDS SUMMARY | 2024-10-24 17:18 | XMS_ITS | Encounter Summary ---
Author Organization [facility] Address [address] [place] [address] Care Team Providers Care Wheel Adjuster Name Role Phone Oleg Hamilton MD Primary Care Provider +1- [phone] Encounter Details Date Type Department Care Team (Latest Contact Info) Description 07/10/2004 Outpatient Historical [facility] H[facility] [address] [place] [address] [address] [place] [address] Jimi Adams MD [address] [place] [address] IRON DEFIC ANEMIA NOS (Primary Dx); ADV EFFECT MED/BIOL SUB NOS Social History Tobacco Use Types Packs/Day Years Used Date Smoking Tobacco: Never Assessed Comments Unknown Sex and Gender Information Value Date Recorded Sex Assigned at Not on file Legal Sex Female 5:17 AM FEEDER ASSOCIATE Gender Identity Not on file Sexual Orientation Not on file documented as of this encounter Plan of Treatment Not on file documented as of this encounter Visit Diagnoses Diagnosis Iron deficiency anemia, unspecified- Primary Other and unspecified adverse effect of drug, medicinal and biological substance documented in this encounter Care Teams Wheel Adjuster Relationship Specialty Start Date End Date Oleg Hamilton MD PCP - General 06/04/04 documented as of this encounter
--- OUTSIDE RECORDS SUMMARY | 2024-10-24 17:18 | XMS_ITS | Encounter Summary ---
Author Organization [facility] Address [address] [place] [address] Care Team Providers Care Railroad Passenger Agent Name Role Phone Oleg Hamilton MD Primary Care Provider +1- [phone] Encounter Details Date Type Department Care Team (Latest Contact Info) Description 12/29/2006 Outpatient Historical [facility] [place] [facility] [address] [facility] [address] [place] [address] Adelaida Diaz MD [address] [place] [address] Unspecified Iron Deficiency Anemia (Primary Dx) Social History Tobacco Use Types Packs/Day Years Used Date Smoking Tobacco: Never Assessed Comments Unknown Sex and Gender Information Value Date Recorded Sex Assigned at Not on file Legal Sex Female 5:17 AM FISHER SCALLOP Gender Identity Not on file Sexual Orientation Not on file documented as of this encounter Plan of Treatment Not on file documented as of this encounter Visit Diagnoses Diagnosis Iron deficiency anemia, unspecified- Primary documented in this encounter Care Teams Railroad Passenger Agent Relationship Specialty Start Date End Date Oleg Hamilton MD PCP - General 06/04/04 documented as of this encounter
--- OUTSIDE RECORDS SUMMARY | 2024-10-24 17:18 | XMS_ITS | Encounter Summary ---
Author Organization [facility] Address [address] [place] [address] Care Team Providers Care Cold Type Artist Name Role Phone Oleg Hamilton MD Primary Care Provider +1- [phone] Encounter Details Date Type Department Care Team (Latest Contact Info) Description 11/17/2005 Outpatient Historical [facility] [place] [address] [place] [address] Shashi Ag MD [address] [facility] [address] [place] [address] Unspecified Iron Deficiency Anemia (Primary Dx) Social History Tobacco Use Types Packs/Day Years Used Date Smoking Tobacco: Never Assessed Comments Unknown Sex and Gender Information Value Date Recorded Sex Assigned at Not on file Legal Sex Female 5:17 AM MANUFACTURING RECRUITER Gender Identity Not on file Sexual Orientation Not on file documented as of this encounter Plan of Treatment Not on file documented as of this encounter Visit Diagnoses Diagnosis Iron deficiency anemia, unspecified- Primary documented in this encounter Care Teams Cold Type Artist Relationship Specialty Start Date End Date Oleg Hamilton MD PCP - General 06/04/04 documented as of this encounter
--- OUTSIDE RECORDS SUMMARY | 2024-10-24 17:18 | XMS_ITS | Encounter Summary ---
Author Organization [facility] Address [address] [place] [address] Care Team Providers Care Associate Civil Engineer Name Role Phone Oleg Hamilton MD Primary Care Provider +1- [phone] Encounter Details Date Type Department Care Team (Late st Contact Info) Description 02/15/2008 Outpatient [facility] [address] [facility] [address] [place] [address] Social History Tobacco Use Types Packs/Day Years Used Date Smoking Tobacco: Never Assessed Comments Unknown Sex and Gender Information Value Date Recorded Sex Assigned at Not on file Legal Sex Female 5:17 AM BAKER HEAD Gender Identity Not on file Sexual Orientation Not on file documented as of this encounter Plan of Treatment Not on file documented as of this encounter Visit Diagnoses Not on filedocumented in this encounter Care Teams Associate Civil Engineer Relationship Specialty Start Date End Date Oleg Hamilton MD PCP - General 06/04/04 documented as of this encounter
--- OUTSIDE RECORDS SUMMARY | 2024-10-24 17:18 | XMS_ITS | Encounter Summary ---
Author Organization [facility] Address [address] [place] [address] Care Team Providers Care Maintenance Mgr Name Role Phone Oleg Hamilton MD Primary Care Provider +1- [phone] Encounter Details Date Type Department Care Team (Late st Contact Info) Description 10/20/2006 Outpatient [facility] [address] [place] [address] Social History Tobacco Use Types Packs/Day Years Used Date Smoking Tobacco: Never Assessed Comments Unknown Sex and Gender Information Value Date Recorded Sex Assigned at Not on file Legal Sex Female 5:17 AM GAS PLANT SPECIALIST Gender Identity Not on file Sexual Orientation Not on file documented as of this encounter Plan of Treatment Not on file documented as of this encounter Visit Diagnoses Not on filedocumented in this encounter Care Teams Maintenance Mgr Relationship Specialty Start Date End Date Oleg Hamilton MD PCP - General 06/04/04 documented as of this encounter
--- OUTSIDE RECORDS SUMMARY | 2024-10-24 17:18 | XMS_ITS | Encounter Summary ---
Author Organization [facility] Address [address] [place] [address] Care Team Providers Care Scoreboard Operator Name Role Phone Oleg Hamilton MD Primary Care Provider +1- [phone] Encounter Details Date Type Department Care Team (Latest Contact Info) Description 03/01/2008 Outpatient Historical [facility] Physical Therapy [address] [place] [address] [place] [address] Sidney Cortés MD NO ADDRESS ON FILE Degeneration of Lumbar or Lumbosacral Intervertebral Disc Social History Tobacco Use Types Packs/Day Years Used Date Smoking Tobacco: Never Assessed Comments Unknown Sex and Gender Information Value Date Recorded Sex Assigned at Not on file Legal Sex Female 5:17 AM POLITICAL REPORTER Gender Identity Not on file Sexual Orientation Not on file documented as of this encounter Plan of Treatment Not on file documented as of this encounter Visit Diagnoses Diagnosis Degeneration of lumbar or lumbosacral intervertebral disc documented in this encounter Care Teams Scoreboard Operator Relationship Specialty Start Date End Date Oleg Hamilton MD PCP - General 06/04/04 documented as of this encounter
--- OUTSIDE RECORDS SUMMARY | 2024-10-24 17:18 | XMS_ITS | Encounter Summary ---
Author Organization [facility] Address [address] [place] [address] Care Team Providers Care Overnight Associate Name Role Phone Oleg Hamilton MD Primary Care Provider +1- [phone] Encounter Details Date Type Department Care Team (Late st Contact Info) Description 12/13/2006 Outpatient Historical [facility] [address] [place] [address] [facility] [address] [place] [address] Fonseca, Crystal A, CRIB PAD MAKER [address] [place] [address] Social History Tobacco Use Types Packs/Day Years Used Date Smoking Tobacco: Never Assessed Comments Unknown Sex and Gender Information Value Date Recorded Sex Assigned at Not on file Legal Sex Female 5:17 AM ARC WELDER Gender Identity Not on file Sexual Orientation Not on file documented as of this encounter Plan of Treatment Not on file documented as of this encounter Visit Diagnoses Not on filedocumented in this encounter Care Teams Overnight Associate Relationship Specialty Start Date End Date Oleg Hamilton MD PCP - General 06/04/04 documented as of this encounter
--- OUTSIDE RECORDS SUMMARY | 2024-10-24 17:18 | XMS_ITS | Encounter Summary ---
Author Organization [facility] Address [address] [place] [address] Care Team Providers Care Epidemiology Internship Name Role Phone Oleg Hamilton MD Primary Care Provider +1- [phone] Encounter Details Date Type Department Care Team (Latest Contact Info) Description 06/25/2004 Outpatient Historical [facility] [place] [address] [address] [place] [address] Oleg Hamilotn MD [address] [place] [address] VAGINITIS NOS (Primary Dx); Atrophic vaginitis; LUMBAGO; SCREENING MAL NEOP-CERVIX Social History Tobacco Use Types Packs/Day Years Used Date Smoking Tobacco: Never Assessed Comments Unknown Sex and Gender Information Value Date Recorded Sex Assigned at Not on file Legal Sex Female 5:17 AM CLERICAL TRANSCRIBER Gender Identity Not on file Sexual Orientation Not on file documented as of this encounter Plan of Treatment Not on file documented as of this encounter Visit Diagnoses Diagnosis Vaginitis and vulvovaginitis, unspecified- Primary Atrophic vaginitis Postmenopausal atrophic vaginitis Lumbago Screening for malignant neoplasm of the cervix documented in this encounter Care Teams Epidemiology Internship Relationship Specialty Start Date End Date Oleg Hamilton MD PCP - General 06/04/04 documented as of this encounter
--- OUTSIDE RECORDS SUMMARY | 2024-10-24 17:18 | XMS_ITS | Encounter Summary ---
Author Organization [facility] Address [address] [place] [address] Care Team Providers Care Composition Teacher Name Role Phone Oleg Hamilton MD Primary Care Provider +1- [phone] Encounter Details Date Type Department Care Team (Late st Contact Info) Description 03/26/2008 Outpatient [facility] [address] [place] [address] Social History Tobacco Use Types Packs/Day Years Used Date Smoking Tobacco: Never Alcohol Use Standard Drinks/Week Comments Yes 0 (1 standard drink = 0.6 oz pur e alcohol) occasional Comments No Sex and Gender Information Value Date Recorded Sex Assigned at Not on file Legal Sex Female 5:17 AM SUPERVISOR MODEL MAKING Gender Identity Not on file Sexual Orientation Not on file documented as of this encounter Plan of Treatment Not on file documented as of this encounter Visit Diagnoses Not on filedocumented in this encounter Care Teams Composition Teacher Relationship Specialty Start Date End Date Oleg Hamilton MD PCP - General 06/04/04 documented as of this encounter
--- OUTSIDE RECORDS SUMMARY | 2024-10-24 17:18 | XMS_ITS | Encounter Summary ---
Author Organization [facility] Address [address] [place] [address] Care Team Providers Care A/C Technician Name Role Phone Oleg Hamilton MD Primary Care Provider +1- [phone] Encounter Details Date Type Department Care Team (Latest Contact Info) Description 01/30/2008 Outpatient Historical [facility] Physical Therapy [address] [place] [address] [place] [address] Sidney Cortés MD NO ADDRESS ON FILE Degeneration of Lumbar or Lumbosacral Intervertebral Disc Social History Tobacco Use Types Packs/Day Years Used Date Smoking Tobacco: Never Assessed Comments Unknown Sex and Gender Information Value Date Recorded Sex Assigned at Not on file Legal Sex Female 5:17 AM FLOATMAN Gender Identity Not on file Sexual Orientation Not on file documented as of this encounter Plan of Treatment Not on file documented as of this encounter Visit Diagnoses Diagnosis Degeneration of lumbar or lumbosacral intervertebral disc documented in this encounter Care Teams A/C Technician Relationship Specialty Start Date End Date Oleg Hamilton MD PCP - General 06/04/04 documented as of this encounter
--- OUTSIDE RECORDS SUMMARY | 2024-10-24 17:18 | XMS_ITS | Encounter Summary ---
Author Organization [facility] Address [address] [place] [address] Care Team Providers Care Synthetic Filament Extruder Name Role Phone Oleg Hamilton MD Primary Care Provider +1- [phone] Encounter Details Date Type Department Care Team (Late st Contact Info) Description 07/09/2004 Outpatient [facility] [address] [place] [address] [facility] [address] [place] [address] Fernando Rodriguez MD NO ADDRESS ON FILE Social History Tobacco Use Types Packs/Day Years Used Date Smoking Tobacco: Never Assessed Comments Unknown Sex and Gender Information Value Date Recorded Sex Assigned at Not on file Legal Sex Female 5:17 AM SALES SERVICE ASSISTANT Gender Identity Not on file Sexual Orientation Not on file documented as of this encounter Plan of Treatment Not on file documented as of this encounter Visit Diagnoses Not on filedocumented in this encounter Care Teams Synthetic Filament Extruder Relationship Specialty Start Date End Date Oleg Hamilton MD PCP - General 06/04/04 documented as of this encounter
--- OUTSIDE RECORDS SUMMARY | 2024-10-24 17:18 | XMS_ITS | Encounter Summary ---
Author Organization [facility] Address [address] [place] [address] Care Team Providers Care Purse Maker Name Role Phone Oleg Hamilton MD Primary Care Provider +1- [phone] Encounter Details Date Type Department Care Team (Late st Contact Info) Description 12/25/2006 Emergency [facility] Emergency Department [address] [place] [address] Vipul Zavaleta, NO ADDRESS ON FILE Lumbago (Primary Dx) Social History Tobacco Use Types Packs/Day Years Used Date Smoking Tobacco: Never Assessed Comments Unknown Sex and Gender Information Value Date Recorded Sex Assigned at Not on file Legal Sex Female 5:17 AM MANAGER FOOD SAFETY Gender Identity Not on file Sexual Orientation Not on file documented as of this encounter Plan of Treatment Not on file documented as of this encounter Visit Diagnoses Diagnosis Lumbago- Primary documented in this encounter Care Teams Purse Maker Relationship Specialty Start Date End Date Oleg Hamilton MD PCP - General 06/04/04 documented as of this encounter
--- OUTSIDE RECORDS SUMMARY | 2024-10-24 17:18 | XMS_ITS | Encounter Summary ---
Author Organization [facility] Address [address] [place] [address] Care Team Providers Care Elementary School Band Director Name Role Phone Oleg Hamilton MD Primary Care Provider +1- [phone] Encounter Details Date Type Department Care Team (Late st Contact Info) Description 02/27/2008 Outpatient Historical [facility]- [place] [address] [place] [address] Arianne Cook PA [address] [place] [address] Social History Tobacco Use Types Packs/Day Years Used Date Smoking Tobacco: Never Assessed Comments Unknown Sex and Gender Information Value Date Recorded Sex Assigned at Not on file Legal Sex Female 5:17 AM PLANT CUSTODIAN Gender Identity Not on file Sexual Orientation Not on file documented as of this encounter Plan of Treatment Not on file documented as of this encounter Visit Diagnoses Not on filedocumented in this encounter Care Teams Elementary School Band Director Relationship Specialty Start Date End Date Oleg Hamilton MD PCP - General 06/04/04 documented as of this encounter
--- OUTSIDE RECORDS SUMMARY | 2024-10-24 17:18 | XMS_ITS | Encounter Summary ---
Author Organization [facility] Address [address] [place] [address] Care Team Providers Care Departmental Secretary Name Role Phone Oleg Hamilton MD Primary Care Provider +1- [phone] Encounter Details Date Type Department Care Team (Latest Contact Info) Description 12/30/2005 Outpatient Historical [facility] Cancer [facility] [address] [place] [address] Lindsey Larson, FIBERGLASS BOAT BUILDER [address] [place] [address] Unspecified Iron Deficiency Anemia (Primary Dx) Social History Tobacco Use Types Packs/Day Years Used Date Smoking Tobacco: Never Assessed Comments Unknown Sex and Gender Information Value Date Recorded Sex Assigned at Not on file Legal Sex Female 5:17 AM FLEET DRIVER Gender Identity Not on file Sexual Orientation Not on file documented as of this encounter Plan of Treatment Not on file documented as of this encounter Visit Diagnoses Diagnosis Iron deficiency anemia, unspecified- Primary documented in this encounter Care Teams Departmental Secretary Relationship Specialty Start Date End Date Oleg Hamilton MD PCP - General 06/04/04 documented as of this encounter
--- OUTSIDE RECORDS SUMMARY | 2024-10-24 17:18 | XMS_ITS | Encounter Summary ---
Author Organization [facility] Address [address] [place] [address] Care Team Providers Care Munitions Factory Worker Name Role Phone Oleg Hamilton MD Primary Care Provider +1- [phone] Encounter Details Date Type Department Care Team (Latest Contact Info) Description 08/13/2004 Outpatient Historical [facility] [address] [place] [address] Sidney Cortés MD NO ADDRESS ON FILE Lumbosacral spondylosis (Primary Dx); LUMBAGO; OTHER BACK SYMPTOMS Social History Tobacco Use Types Packs/Day Years Used Date Smoking Tobacco: Never Assessed Comments Unknown Sex and Gender Information Value Date Recorded Sex Assigned at Not on file Legal Sex Female 5:17 AM INSPECTOR ADVANCED COMPOSITE Gender Identity Not on file Sexual Orientation Not on file documented as of this encounter Plan of Treatment Not on file documented as of this encounter Visit Diagnoses Diagnosis Lumbosacral spondylosis- Primary Lumbosacral spondylosis without myelopathy Lumbago Other symptoms referable to back documented in this encounter Care Teams Munitions Factory Worker Relationship Specialty Start Date End Date Oleg Hamilton MD PCP - General 06/04/04 documented as of this encounter
--- OUTSIDE RECORDS SUMMARY | 2024-10-24 17:18 | XMS_ITS | Encounter Summary ---
Author Organization [facility] Address [address] [place] [address] Care Team Providers Care Mobile Phlebotomist Name Role Phone Oleg Hamilton MD Primary Care Provider +1- [phone] Encounter Details Date Type Department Care Team (Latest Contact Info) Description 01/19/2008 Outpatient Historical [facility] [address] [place] [address] [place] [address] Arianne Cook PA [address] [place] [address] Lumbosacral Spondylosis without Myelopathy; Thoracic or Lumbosacral Neuritis or Radiculitis, Unspecified; Depressive Disorder, not Elsewhere Classified Social History Tobacco Use Types Packs/Day Years Used Date Smoking Tobacco: Never Assessed Comments Unknown Sex and Gender Information Value Date Recorded Sex Assigned at Not on file Legal Sex Female 5:17 AM SHOER Gender Identity Not on file Sexual Orientation Not on file documented as of this encounter Plan of Treatment Not on file documented as of this encounter Visit Diagnoses Diagnosis Lumbosacral spondylosis without myelopathy Thoracic or lumbosacral neuritis or radiculitis, unspecified Depressive disorder, not elsewhere classified documented in this encounter Care Teams Mobile Phlebotomist Relationship Specialty Start Date End Date Oleg Hamilton MD PCP - General 06/04/04 documented as of this encounter
--- OUTSIDE RECORDS SUMMARY | 2024-10-24 17:18 | XMS_ITS | Encounter Summary ---
Author Organization [facility] Address [address] [place] [address] Care Team Providers Care Utility System Operator Name Role Phone Oleg Hamilton MD Primary Care Provider +1- [phone] Encounter Details Date Type Department Care Team (Latest Contact Info) Description 12/30/2005 Outpatient [facility] [address] [place] [address] [address] [place] [address] Jimi Adams MD [address] [place] [address] Unspecified Iron Deficiency Anemia (Primary Dx); Adv Eff Med/Biol Sub Social History Tobacco Use Types Packs/Day Years Used Date Smoking Tobacco: Never Assessed Comments Unknown Sex and Gender Information Value Date Recorded Sex Assigned at Not on file Legal Sex Female 5:17 AM MASS COMMUNICATIONS INSTRUCTOR Gender Identity Not on file Sexual Orientation Not on file documented as of this encounter Plan of Treatment Not on file documented as of this encounter Visit Diagnoses Diagnosis Iron deficiency anemia, unspecified- Primary Other and unspecified adverse effect of drug, medicinal and biological substance documented in this encounter Care Teams Utility System Operator Relationship Specialty Start Date End Date Oleg Hamilton MD PCP - General 06/04/04 documented as of this encounter
--- OUTSIDE RECORDS SUMMARY | 2024-10-24 17:18 | XMS_ITS | Encounter Summary ---
Author Organization [facility] Address [address] [place] [address] Care Team Providers Care Orchard Sprayer Name Role Phone Oleg Hamilton MD Primary Care Provider +1- [phone] Encounter Details Date Type Department Care Team (Latest Contact Info) Description 02/19/2008 Outpatient Historical [facility] [address] [place] [address] [place] [address] Arianne Cook PA [address] [place] [address] Degeneration of Lumbar or Lumbosacral Intervertebral Disc; Spinal Stenosis of Lumbar Region; Other Acquired Deformity of Ankle and Foot; Unspecified Osteoporosis; Unspecified Essential Hypertension; Unspecified Arthropathy, Site Unspecified; Unspecified Heart Failure (CMS/HCC); Unspecified Constipation Social History Tobacco Use Types Packs/Day Years Used Date Smoking Tobacco: Never Assessed Comments Unknown Sex and Gender Information Value Date Recorded Sex Assigned at Not on file Legal Sex Female 5:17 AM CARPENTERS HELPER Gender Identity Not on file Sexual Orientation Not on file documented as of this encounter Plan of Treatment Not on file documented as of this encounter Visit Diagnoses Diagnosis Degeneration of lumbar or lumbosacral intervertebral disc Spinal stenosis, lumbar region, without neurogenic claudication Other acquired deformity of ankle and foot(736.79) Other acquired deformity of ankle and foot Osteoporosis, unspecified Unspecified essential hypertension Arthropathy, unspecified, site unspecified Heart failure, unspecified (CMS/HCC) Heart failure, unspecified Unspecified constipation documented in this encounter Care Teams Orchard Sprayer Relationship Specialty Start Date End Date Oleg Hamilton MD PCP - General 06/04/04 documented as of this encounter
--- OUTSIDE RECORDS SUMMARY | 2024-10-24 17:18 | XMS_ITS | Encounter Summary ---
Author Organization [facility] Address [address] [place] [address] Care Team Providers Care Bone Puller Name Role Phone Oleg Hamilton MD Primary Care Provider +1- [phone] Encounter Details Date Type Department Care Team (Latest Contact Info) Description 11/17/2005 Outpatient Historical [facility]- [place] [address] [address] Shashi Ag MD [address] [facility] [address] [place] [address] Rectal/Anal Hemorrhage (Primary Dx); Unspecified Iron Deficiency Anemia Social History Tobacco Use Types Packs/Day Years Used Date Smoking Tobacco: Never Assessed Comments Unknown Sex and Gender Information Value Date Recorded Sex Assigned at Not on file Legal Sex Female 5:17 AM PLAY BACK OPERATOR Gender Identity Not on file Sexual Orientation Not on file documented as of this encounter Plan of Treatment Not on file documented as of this encounter Visit Diagnoses Diagnosis Rectal/anal hemorrhage- Primary Hemorrhage of rectum and anus Iron deficiency anemia, unspecified documented in this encounter Care Teams Bone Puller Relationship Specialty Start Date End Date Oleg Hamilton MD PCP - General 06/04/04 documented as of this encounter
--- OUTSIDE RECORDS SUMMARY | 2024-10-24 17:18 | XMS_ITS | Encounter Summary ---
Author Organization [facility] Address [address] [place] [address] Care Team Providers Care Director Public Service Name Role Phone Oleg Hamilton MD Primary Care Provider +1- [phone] Encounter Details Date Type Department Care Team (Latest Contact Info) Description 11/10/2005 Outpatient Historical [facility] Cancer and Hematology [address] [place] [address] [address] [place] [address] Jimi Adams MD [address] [place] [address] Unspecified Iron Deficiency Anemia (Primary Dx) Social History Tobacco Use Types Packs/Day Years Used Date Smoking Tobacco: Never Assessed Comments Unknown Sex and Gender Information Value Date Recorded Sex Assigned at Not on file Legal Sex Female 5:17 AM CLOTH FOLDER HAND Gender Identity Not on file Sexual Orientation Not on file documented as of this encounter Plan of Treatment Not on file documented as of this encounter Visit Diagnoses Diagnosis Iron deficiency anemia, unspecified- Primary documented in this encounter Care Teams Director Public Service Relationship Specialty Start Date End Date Oleg Hamilton MD PCP - General 06/04/04 documented as of this encounter
--- OUTSIDE RECORDS SUMMARY | 2024-10-24 17:18 | XMS_ITS | Encounter Summary ---
Author Organization [facility] Address [address] [place] [address] Care Team Providers Care Motion Pictures Cartoonist Name Role Phone Oleg Hamilton MD Primary Care Provider +1- [phone] Encounter Details Date Type Department Care Team (Latest Contact Info) Description 07/14/2004 Outpatient Historical [facility] [address] [place] [address] Fernando Rodriguez MD NO ADDRESS ON FILE LUMB/LUMBOSAC DISC DEGEN (Primary Dx); BACKACHE NOS Social History Tobacco Use Types Packs/Day Years Used Date Smoking Tobacco: Never Assessed Comments Unknown Sex and Gender Information Value Date Recorded Sex Assigned at Not on file Legal Sex Female 5:17 AM TILE SHADER Gender Identity Not on file Sexual Orientation Not on file documented as of this encounter Plan of Treatment Not on file documented as of this encounter Visit Diagnoses Diagnosis Degeneration of lumbar or lumbosacral intervertebral disc- Primary Backache, unspecified documented in this encounter Care Teams Motion Pictures Cartoonist Relationship Specialty Start Date End Date Oleg Hamilton MD PCP - General 06/04/04 documented as of this encounter
--- OUTSIDE RECORDS SUMMARY | 2024-10-24 17:18 | XMS_ITS | Encounter Summary ---
Author Organization [facility] Address [address] [place] [address] Care Team Providers Care Erco Machine Operator Name Role Phone Oleg Hamilton MD Primary Care Provider +1- [phone] Encounter Details Date Type Department Care Team (Latest Contact Info) Description 07/10/2004 Outpatient Historical [facility] Cancer and Hematology [address] [place] [address] [address] [place] [address] Jimi Adams MD [address] [place] [address] IRON DEFIC ANEMIA NOS (Primary Dx) Social History Tobacco Use Types Packs/Day Years Used Date Smoking Tobacco: Never Assessed Comments Unknown Sex and Gender Information Value Date Recorded Sex Assigned at Not on file Legal Sex Female 5:17 AM PARKING CASHIER Gender Identity Not on file Sexual Orientation Not on file documented as of this encounter Plan of Treatment Not on file documented as of this encounter Visit Diagnoses Diagnosis Iron deficiency anemia, unspecified- Primary documented in this encounter Care Teams Erco Machine Operator Relationship Specialty Start Date End Date Oleg Hamilton MD PCP - General 06/04/04 documented as of this encounter
--- OUTSIDE RECORDS SUMMARY | 2024-10-24 17:18 | XMS_ITS | Encounter Summary ---
Author Organization [facility] Address [address] [place] [address] Care Team Providers Care Inspector Advanced Composite Name Role Phone Oleg Hamilton MD Primary Care Provider +1- [phone] Encounter Details Date Type Department Care Team (Latest Contact Info) Description 07/14/2004 Outpatient Historical [facility] [address] [place] [address] [facility] [address] [place] [address] Fernando Rodriguez MD NO ADDRESS ON FILE DISC DEGENERATION NOS (Primary Dx) Social History Tobacco Use Types Packs/Day Years Used Date Smoking Tobacco: Never Assessed Comments Unknown Sex and Gender Information Value Date Recorded Sex Assigned at Not on file Legal Sex Female 5:17 AM COLLAR STAY FUSER TENDER Gender Identity Not on file Sexual Orientation Not on file documented as of this encounter Plan of Treatment Not on file documented as of this encounter Visit Diagnoses Diagnosis Degeneration of intervertebral disc, site unspecified- Primary documented in this encounter Care Teams Inspector Advanced Composite Relationship Specialty Start Date End Date Oleg Hamilton MD PCP - General 06/04/04 documented as of this encounter
--- OUTSIDE RECORDS SUMMARY | 2024-10-24 17:18 | XMS_ITS | Encounter Summary ---
Author Organization [facility] Address [address] [place] [address] Care Team Providers Care Construction Driller Name Role Phone Oleg Hamilton MD Primary Care Provider +1- [phone] Encounter Details Date Type Department Care Team (Latest Contact Info) Description 03/25/2008 Outpatient Historical [facility] [address] [place] [address] [place] [address] Arianne Cook PA [address] [place] [address] Degeneration of Lumbar or Lumbosacral Intervertebral Disc; Lumbosacral Spondylosis without Myelopathy; Thoracic or Lumbosacral Neuritis or Radiculitis, Unspecified; Pain in Soft Tissues of Limb; Personal History of Allergy to Narcotic Agent; Personal History of Allergy to Analgesic Agent Social History Tobacco Use Types Packs/Day Years Used Date Smoking Tobacco: Never Alcohol Use Standard Drinks/Week Comments Yes 0 (1 standard drink = 0.6 oz pur e alcohol) occasional Comments No Sex and Gender Information Value Date Recorded Sex Assigned at Not on file Legal Sex Female 5:17 AM OUTBOUND CALL CENTER REPRESENTATIVE Gender Identity Not on file Sexual Orientation Not on file documented as of this encounter Plan of Treatment Not on file documented as of this encounter Visit Diagnoses Diagnosis Degeneration of lumbar or lumbosacral intervertebral disc Lumbosacral spondylosis without myelopathy Thoracic or lumbosacral neuritis or radiculitis, unspecified Pain in limb Personal history of allergy to narcotic agent Personal history of allergy to analgesic agent documented in this encounter Care Teams Construction Driller Relationship Specialty Start Date End Date Oleg Hamilton MD PCP - General 06/04/04 documented as of this encounter
--- OUTSIDE RECORDS SUMMARY | 2024-10-24 17:18 | XMS_ITS | Encounter Summary ---
Author Organization [facility] Address [address] [place] [address] Care Team Providers Care Retail Parts Professional Name Role Phone Oleg Hamilton MD Primary Care Provider +1- [phone] Encounter Details Date Type Department Care Team (Late st Contact Info) Description 02/08/2008 Outpatient [facility] [address] [place] [id number] Oleg Hamilton MD [address] [facility] [address] [place] [address] Social History Tobacco Use Types Packs/Day Years Used Date Smoking Tobacco: Never Assessed Comments Unknown Sex and Gender Information Value Date Recorded Sex Assigned at Not on file Legal Sex Female 5:17 AM MANAGER LIBRARY Gender Identity Not on file Sexual Orientation Not on file documented as of this encounter Plan of Treatment Not on file documented as of this encounter Procedures Procedure Name Priority Date/Time Associated Diagnosis Comments MAMMO SCREENING BILAT Routine 02/15/2008 8:40 AM CDT documented in this encounter Results * MAMMO SCREENING BILAT (02/15/2008 8:40 AM CDT) Anatomical Region Laterality Modality Breast Bilateral Other Narrative 02/15/2008 8:40 AM CDT FINAL - See Scanned Document Procedure Note 06/11/2015 FINAL - See Scanned Document us Oleg Hamilton MD MAMMO ORDERABLES Final Res ult documented in this encounter Visit Diagnoses Not on filedocumented in this encounter Care Teams Retail Parts Professional Relationship Specialty Start Date End Date Oleg Hamilton MD PCP - General 06/04/04 documented as of this encounter
--- OUTSIDE RECORDS SUMMARY | 2024-10-24 17:18 | XMS_ITS | Encounter Summary ---
Author Organization [facility] Address [address] [place] [address] Care Team Providers Care Manager Rental Name Role Phone Oleg Hamilton MD Primary Care Provider +1- [phone] Encounter Details Date Type Department Care Team (Latest Contact Info) Description 07/24/2004 Outpatient Historical [facility] [place] [address] [place] [email or web address] [address] [place] [address] Sidney Cortés MD NO ADDRESS ON FILE LUMB/LUMBOSAC DISC DEGEN (Primary Dx) Social History Tobacco Use Types Packs/Day Years Used Date Smoking Tobacco: Never Assessed Comments Unknown Sex and Gender Information Value Date Recorded Sex Assigned at Not on file Legal Sex Female 5:17 AM FLAVORING MACHINE 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
--- OUTSIDE RECORDS SUMMARY | 2024-10-24 17:18 | XMS_ITS | Encounter Summary ---
Author Organization [facility] Address [address] [place] [address] Care Team Providers Care Cart Driver Name Role Phone Oleg Hamilton MD Primary Care Provider +1- [phone] Encounter Details Date Type Department Care Team (Latest Contact Info) Description 07/23/2004 Outpatient Historical [facility] Cancer and Hematology [address] [place] [address] [address] [place] [address] Jimi Adams MD [address] [place] [address] IRON DEFIC ANEMIA NOS (Primary Dx); ADV EFFECT MED/BIOL SUB NOS Social History Tobacco Use Types Packs/Day Years Used Date Smoking Tobacco: Never Assessed Comments Unknown Sex and Gender Information Value Date Recorded Sex Assigned at Not on file Legal Sex Female 5:17 AM BOTTLE CASER Gender Identity Not on file Sexual Orientation Not on file documented as of this encounter Plan of Treatment Not on file documented as of this encounter Visit Diagnoses Diagnosis Iron deficiency anemia, unspecified- Primary Other and unspecified adverse effect of drug, medicinal and biological substance documented in this encounter Care Teams Cart Driver Relationship Specialty Start Date End Date Oleg Hamilton MD PCP - General 06/04/04 documented as of this encounter
--- OUTSIDE RECORDS SUMMARY | 2024-10-24 17:18 | XMS_ITS | Encounter Summary ---
Author Organization [facility] Address [address] [place] [address] Care Team Providers Care Account Analyst Name Role Phone Oleg Hamilton MD Primary Care Provider +1- [phone] Encounter Details Date Type Department Care Team (Late st Contact Info) Description 01/30/2008 Outpatient [facility] [address] [place] [address] Social History Tobacco Use Types Packs/Day Years Used Date Smoking Tobacco: Never Assessed Comments Unknown Sex and Gender Information Value Date Recorded Sex Assigned at Not on file Legal Sex Female 5:17 AM CHAIN LINK FENCE INSTALLER Gender Identity Not on file Sexual Orientation Not on file documented as of this encounter Plan of Treatment Not on file documented as of this encounter Visit Diagnoses Not on filedocumented in this encounter Care Teams Account Analyst Relationship Specialty Start Date End Date Oleg Hamilton MD PCP - General 06/04/04 documented as of this encounter
--- OUTSIDE RECORDS SUMMARY | 2024-10-24 17:18 | XMS_ITS | Encounter Summary ---
Author Organization [facility] Address [address] [place] [address] Care Team Providers Care Veneer Stapler Name Role Phone Oleg Hamilton MD Primary Care Provider +1- [phone] Encounter Details Date Type Department Care Team (Latest Contact Info) Description 10/27/2006 Outpatient Historical [facility] [address] [facility] [address] [place] [address] Kathy Veliz, DRAINAGE INSPECTOR [address] [facility] [address] [place], [place] [id number] Unspecified Iron Deficiency Anemia (Primary Dx); Adv Eff Med/Biol NEC/NOS Social History Tobacco Use Types Packs/Day Years Used Date Smoking Tobacco: Never Assessed Comments Unknown Sex and Gender Information Value Date Recorded Sex Assigned at Not on file Legal Sex Female 5:17 AM BLOCK AND CASE MAKER Gender Identity Not on file Sexual Orientation Not on file documented as of this encounter Plan of Treatment Not on file documented as of this encounter Visit Diagnoses Diagnosis Iron deficiency anemia, unspecified- Primary Unspecified adverse effect of other drug, medicinal and biological substance(995.29) Unspecified adverse effect of other drug, medicinal and biological substance documented in this encounter Care Teams Veneer Stapler Relationship Specialty Start Date End Date Oleg Hamilton MD PCP - General 06/04/04 documented as of this encounter
--- OUTSIDE RECORDS SUMMARY | 2024-10-24 17:18 | XMS_ITS | Encounter Summary ---
Author Organization [facility] Address [address] [place] [address] Care Team Providers Care Brim Presser Name Role Phone Oleg Hamilton MD Primary Care Provider +1- [phone] Encounter Details Date Type Department Care Team (Latest Contact Info) Description 11/15/2006 Outpatient Historical [facility] [place] [address] [place] [address] Fonseca, Crystal A, AGRICULTURAL ENGINEERING TECHNOLOGIST [address] [place] [address] Degeneration of Lumbar or Lumbosacral Intervertebral Disc (Primary Dx); Lumbago; Disorders of Sacrum Social History Tobacco Use Types Packs/Day Years Used Date Smoking Tobacco: Never Assessed Comments Unknown Sex and Gender Information Value Date Recorded Sex Assigned at Not on file Legal Sex Female 5:17 AM MACHINE MOLDER SQUEEZE Gender Identity Not on file Sexual Orientation Not on file documented as of this encounter Plan of Treatment Not on file documented as of this encounter Visit Diagnoses Diagnosis Degeneration of lumbar or lumbosacral intervertebral disc- Primary Lumbago Disorders of sacrum documented in this encounter Care Teams Brim Presser Relationship Specialty Start Date End Date Oleg Hamilton MD PCP - General 06/04/04 documented as of this encounter
--- OUTSIDE RECORDS SUMMARY | 2024-10-24 17:18 | XMS_ITS | Encounter Summary ---
Author Organization [facility] Address [address] [place] [address] Care Team Providers Care Digital Strategy Specialist Name Role Phone Oleg Hamilton MD Primary Care Provider +1- [phone] Encounter Details Date Type Department Care Team (Latest Contact Info) Description 08/26/2004 Outpatient Historical [facility] Cancer and Hematology [address] [place] [address] [address] [place] [address] Jimi Adams MD [address] [place] [address] IRON DEFIC ANEMIA NOS (Primary Dx); ADV EFFECT MED/BIOL SUB NOS; NAUSEA ALONE Social History Tobacco Use Types Packs/Day Years Used Date Smoking Tobacco: Never Assessed Comments Unknown Sex and Gender Information Value Date Recorded Sex Assigned at Not on file Legal Sex Female 5:17 AM VASCULAR SURGEON Gender Identity Not on file Sexual Orientation Not on file documented as of this encounter Plan of Treatment Not on file documented as of this encounter Visit Diagnoses Diagnosis Iron deficiency anemia, unspecified- Primary Other and unspecified adverse effect of drug, medicinal and biological substance Nausea alone documented in this encounter Care Teams Digital Strategy Specialist Relationship Specialty Start Date End Date Oleg Hamilton MD PCP - General 06/04/04 documented as of this encounter
--- OUTSIDE RECORDS SUMMARY | 2024-10-24 17:18 | XMS_ITS | Encounter Summary ---
Author Organization [facility] Address [address] [place] [address] Care Team Providers Care Black Oxide Operator Name Role Phone Oleg Hamilton MD Primary Care Provider +1- [phone] Encounter Details Date Type Department Care Team (Latest Contact Info) Description 01/31/2007 Outpatient Historical [facility] [address] [place] [address] Sidney Cortés MD NO ADDRESS ON FILE Degeneration of Lumbar or Lumbosacral Intervertebral Disc (Primary Dx); Lumbar Disc Displacement; Lumbago; Spinal Stenosis of Lumbar Region Social History Tobacco Use Types Packs/Day Years Used Date Smoking Tobacco: Never Assessed Comments Unknown Sex and Gender Information Value Date Recorded Sex Assigned at Not on file Legal Sex Female 5:17 AM VICE PRESIDENT OF INSTRUCTION Gender Identity Not on file Sexual Orientation Not on file documented as of this encounter Plan of Treatment Not on file documented as of this encounter Visit Diagnoses Diagnosis Degeneration of lumbar or lumbosacral intervertebral disc- Primary Lumbar disc displacement Displacement of lumbar intervertebral disc without myelopathy Lumbago Spinal stenosis, lumbar region, without neurogenic claudication documented in this encounter Care Teams Black Oxide Operator Relationship Specialty Start Date End Date Oleg Hamilton MD PCP - General 06/04/04 documented as of this encounter
--- OUTSIDE RECORDS SUMMARY | 2024-10-24 17:18 | XMS_ITS | Encounter Summary ---
Author Organization [facility] Address [address] [place] [address] Care Team Providers Care Center Machine Set Up Operator Name Role Phone Oleg Hamilton MD Primary Care Provider +1- [phone] Encounter Details Date Type Department Care Team (Latest Contact Info) Description 07/24/2004 Outpatient Historical [facility] [address] [place] [address] Sidney Cortés MD NO ADDRESS ON FILE OTHER BACK SYMPTOMS (Primary Dx); LUMB/LUMBOSAC DISC DEGEN; LUMBAGO; Lumbosacral spondylosis Social History Tobacco Use Types Packs/Day Years Used Date Smoking Tobacco: Never Assessed Comments Unknown Sex and Gender Information Value Date Recorded Sex Assigned at Not on file Legal Sex Female 5:17 AM PINSETTER MECHANIC HELPER Gender Identity Not on file Sexual Orientation Not on file documented as of this encounter Plan of Treatment Not on file documented as of this encounter Visit Diagnoses Diagnosis Other symptoms referable to back- Primary Degeneration of lumbar or lumbosacral intervertebral disc Lumbago Lumbosacral spondylosis Lumbosacral spondylosis without myelopathy documented in this encounter Care Teams Center Machine Set Up Operator Relationship Specialty Start Date End Date Oleg Hamilton MD PCP - General 06/04/04 documented as of this encounter
--- OUTSIDE RECORDS SUMMARY | 2024-10-24 17:18 | XMS_ITS | Encounter Summary ---
Author Organization [facility] Address [address] [place] [address] Care Team Providers Care Rotary Dryer Operator Name Role Phone Oleg Hamilton MD Primary Care Provider +1- [phone] Encounter Details Date Type Department Care Team (Late st Contact Info) Description 01/30/2008 Outpatient Historical [facility] Other, [facility] NO ADDRESS ON FILE Social History Tobacco Use Types Packs/Day Years Used Date Smoking Tobacco: Never Assessed Comments Unknown Sex and Gender Information Value Date Recorded Sex Assigned at Not on file Legal Sex Female 5:17 AM DIPLOMA DENTAL ASSISTANT Gender Identity Not on file Sexual Orientation Not on file documented as of this encounter Plan of Treatment Not on file documented as of this encounter Visit Diagnoses Not on filedocumented in this encounter Care Teams Rotary Dryer Operator Relationship Specialty Start Date End Date Oleg Hamilton MD PCP - General 06/04/04 documented as of this encounter
--- OUTSIDE RECORDS SUMMARY | 2024-10-24 17:18 | XMS_ITS | Encounter Summary ---
Author Organization [facility] Address [address] [place] [address] Care Team Providers Care Director Of Search Engine Optimization Name Role Phone Oleg Hamilton MD Primary Care Provider +1- [phone] Encounter Details Date Type Department Care Team (Latest Contact Info) Description 12/27/2005 Outpatient Historical [facility] Internal Medicine- [place] [address] [facility] [address] [place] [address] Oleg Hamilton MD [address] [place] [address] Lumbago (Primary Dx); Unspecified Anemia; Anxiety State, Unspecified Social History Tobacco Use Types Packs/Day Years Used Date Smoking Tobacco: Never Assessed Comments Unknown Sex and Gender Information Value Date Recorded Sex Assigned at Not on file Legal Sex Female 5:17 AM 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
--- OUTSIDE RECORDS SUMMARY | 2024-10-24 17:18 | XMS_ITS | Encounter Summary ---
Author Organization [facility] Address [address] [place] [address] Care Team Providers Care Tile Decorator Name Role Phone Oleg Hamilton MD Primary Care Provider +1- [phone] Encounter Details Date Type Department Care Team (Latest Contact Info) Description 08/13/2004 Outpatient Historical [facility] Pain Management Procedures [address] [place] [address] Sidney Cortés MD NO ADDRESS ON FILE LUMBOSACRAL SPONDYLOSIS (Primary Dx) Social History Tobacco Use Types Packs/Day Years Used Date Smoking Tobacco: Never Assessed Comments Unknown Sex and Gender Information Value Date Recorded Sex Assigned at Not on file Legal Sex Female 5:[address]ANG SUPERVISOR Gender Identity Not on file Sexual Orientation Not on file documented as of this encounter Plan of Treatment Not on file documented as of this encounter Visit Diagnoses Diagnosis Lumbosacral spondylosis without myelopathy- Primary documented in this encounter Care Teams Tile Decorator Relationship Specialty Start Date End Date Oleg Hamilton MD PCP - General 06/04/04 documented as of this encounter
--- OUTSIDE RECORDS SUMMARY | 2024-10-24 17:18 | XMS_ITS | Encounter Summary ---
Author Organization [facility] Address [address] [place] [address] Care Team Providers Care Email Marketing Assistant Name Role Phone Oleg Hamilton MD Primary Care Provider +1- [phone] Encounter Details Date Type Department Care Team (Latest Contact Info) Description 08/05/2004 Outpatient Historical [facility] [address] [place] [address] [address] [place] [address] Jimi Adams MD [address] [place] [address] IRON DEFIC ANEMIA NOS (Primary Dx); ADV EFFECT MED/BIOL SUB NOS Social History Tobacco Use Types Packs/Day Years Used Date Smoking Tobacco: Never Assessed Comments Unknown Sex and Gender Information Value Date Recorded Sex Assigned at Not on file Legal Sex Female 5:17 AM AOC DIRECTOR COMBAT OPERATIONS OFFICER Gender Identity Not on file Sexual Orientation Not on file documented as of this encounter Plan of Treatment Not on file documented as of this encounter Visit Diagnoses Diagnosis Iron deficiency anemia, unspecified- Primary Other and unspecified adverse effect of drug, medicinal and biological substance documented in this encounter Care Teams Email Marketing Assistant Relationship Specialty Start Date End Date Oleg Hamilton MD PCP - General 06/04/04 documented as of this encounter
--- OUTSIDE RECORDS SUMMARY | 2024-10-24 17:18 | XMS_ITS | Encounter Summary ---
Author Organization [facility] Address [address] [place] [address] Care Team Providers Care Spring Tacker Name Role Phone Oleg Hamilton MD Primary Care Provider +1- [phone] Encounter Details Date Type Department Care Team (Late st Contact Info) Description 10/19/2005 Outpatient Historical [facility] Endoscopy [place] [address] [place] [address] Rohit Cook MD [address] [place] [address] Social History Tobacco Use Types Packs/Day Years Used Date Smoking Tobacco: Never Assessed Comments Unknown Sex and Gender Information Value Date Recorded Sex Assigned at Not on file Legal Sex Female 5:17 AM COAL CUTTER Gender Identity Not on file Sexual Orientation Not on file documented as of this encounter Plan of Treatment Not on file documented as of this encounter Visit Diagnoses Not on filedocumented in this encounter Care Teams Spring Tacker Relationship Specialty Start Date End Date Oleg Hamilton MD PCP - General 06/04/04 documented as of this encounter
--- OUTSIDE RECORDS SUMMARY | 2024-10-24 17:18 | XMS_ITS | Encounter Summary ---
Author Organization [facility] Address [address] [place] [address] Care Team Providers Care Sagger Filler Name Role Phone Oleg Hamilton MD Primary Care Provider +1- [phone] Encounter Details Date Type Department Care Team (Late st Contact Info) Description 12/26/2007 Outpatient Historical [facility] [address] [place] [address] Sidney Cortés MD NO ADDRESS ON FILE Social History Tobacco Use Types Packs/Day Years Used Date Smoking Tobacco: Never Assessed Comments Unknown Sex and Gender Information Value Date Recorded Sex Assigned at Not on file Legal Sex Female 5:17 AM INSPECTOR AND TESTER Gender Identity Not on file Sexual Orientation Not on file documented as of this encounter Plan of Treatment Not on file documented as of this encounter Visit Diagnoses Not on filedocumented in this encounter Care Teams Sagger Filler Relationship Specialty Start Date End Date Oleg Hamilton MD PCP - General 06/04/04 documented as of this encounter
--- OUTSIDE RECORDS SUMMARY | 2024-10-24 17:18 | XMS_ITS | Encounter Summary ---
Author Organization [facility] Address [address] [place] [address] Care Team Providers Care Groover And Striper Operator Name Role Phone Oleg Hamilton MD Primary Care Provider +1- [phone] Encounter Details Date Type Department Care Team (Latest Contact Info) Description 12/30/[address] [facility] [address] [place] [address] [place] [address] [facility] [address] [place] [address] Sidney Cortés MD NO ADDRESS ON FILE Lumbar Sprain and Strain (Primary Dx) Social History Tobacco Use Types Packs/Day Years Used Date Smoking Tobacco: Never Assessed Comments Unknown Sex and Gender Information Value Date Recorded Sex Assigned at Not on file Legal Sex Female 5:17 AM HAND EDGER Gender Identity Not on file Sexual Orientation Not on file documented as of this encounter Plan of Treatment Not on file documented as of this encounter Visit Diagnoses Diagnosis Sprain of lumbar region- Primary documented in this encounter Care Teams Groover And Striper Operator Relationship Specialty Start Date End Date Oleg Hamilton MD PCP - General 06/04/04 documented as of this encounter
--- OUTSIDE RECORDS SUMMARY | 2024-10-24 17:18 | XMS_ITS | Encounter Summary ---
Author Organization [facility] Address [address] [place] [address] Care Team Providers Care Swahili Teacher Name Role Phone Oleg Hamilton MD Primary Care Provider +1- [phone] Encounter Details Date Type Department Care Team (Late st Contact Info) Description 11/15/2006 Outpatient Historical [facility] [address] [place] [address] [place] [address] [facility] [address] [place] [address] Fonseca, Crystal A, COMPONENT DESIGN ENGINEER [address] [place] [address] Lumbago (Primary Dx) Social History Tobacco Use Types Packs/Day Years Used Date Smoking Tobacco: Never Assessed Comments Unknown Sex and Gender Information Value Date Recorded Sex Assigned at Not on file Legal Sex Female 5:17 AM BUYER INTERNSHIP Gender Identity Not on file Sexual Orientation Not on file documented as of this encounter Plan of Treatment Not on file documented as of this encounter Visit Diagnoses Diagnosis Lumbago- Primary documented in this encounter Care Teams Swahili Teacher Relationship Specialty Start Date End Date Oleg Hamilton MD PCP - General 06/04/04 documented as of this encounter
--- OUTSIDE RECORDS SUMMARY | 2024-10-24 17:18 | XMS_ITS | Encounter Summary ---
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) Social History Tobacco Use Types Packs/Day Years Used Date Smoking Tobacco: Never Assessed Comments Unknown Sex and Gender Information Value Date Recorded Sex Assigned at Not on file Legal Sex Female 5:17 AM ENGLISH AND READING INSTRUCTOR Gender Identity Not on file Sexual Orientation Not on file documented as of this encounter Plan of Treatment Not on file documented as of this encounter Visit Diagnoses Diagnosis Degeneration of lumbar or lumbosacral intervertebral disc- Primary documented in this encounter Care Teams Manager Sales Relationship Specialty Start Date End Date Oleg Hamilton MD PCP - General 06/04/04 documented as of this encounter
--- OUTSIDE RECORDS SUMMARY | 2024-10-24 17:18 | XMS_ITS | Encounter Summary ---
Author Organization [facility] Address [address] [place] [address] Care Team Providers Care Printing Sales Representative Name Role Phone Oleg Hamilton MD Primary Care Provider +1- [phone] Encounter Details Date Type Department Care Team (Latest Contact Info) Description 10/06/2006 Outpatient Historical [facility] H[facility] [address] [place] [address] [address] [place] [address] Jimi Adams MD [address] [place] [address] Unspecified Iron Deficiency Anemia (Primary Dx); Adv Eff Med/Biol NEC/NOS Social History Tobacco Use Types Packs/Day Years Used Date Smoking Tobacco: Never Assessed Comments Unknown Sex and Gender Information Value Date Recorded Sex Assigned at Not on file Legal Sex Female 5:17 AM BAT 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 Gender Identity Not on file Sexual Orientation Not on file documented as of this encounter Plan of Treatment Not on file documented as of this encounter Visit Diagnoses Diagnosis Iron deficiency anemia, unspecified- Primary Unspecified adverse effect of other drug, medicinal and biological substance(995.29) Unspecified adverse effect of other drug, medicinal and biological substance documented in this encounter Care Teams Printing Sales Representative Relationship Specialty Start Date End Date Oleg Hamilton MD PCP - General 06/04/04 documented as of this encounter
--- OUTSIDE RECORDS SUMMARY | 2024-10-24 17:18 | XMS_ITS | Encounter Summary ---
Author Organization [facility] Address [address] [place] [address] Care Team Providers Care Weatherstrip Machine Operator Name Role Phone Oleg Hamilton MD Primary Care Provider +1- [phone] Encounter Details Date Type Department Care Team (Late st Contact Info) Description 07/22/2004 Outpatient Historical [facility] Cancer and Hematology [address] [place] [address] [address] [place] [address] Social History Tobacco Use Types Packs/Day Years Used Date Smoking Tobacco: Never Assessed Comments Unknown Sex and Gender Information Value Date Recorded Sex Assigned at Not on file Legal Sex Female 5:17 AM RIVERBOAT MASTER Gender Identity Not on file Sexual Orientation Not on file documented as of this encounter Plan of Treatment Not on file documented as of this encounter Visit Diagnoses Not on filedocumented in this encounter Care Teams Weatherstrip Machine Operator Relationship Specialty Start Date End Date Oleg Hamilton MD PCP - General 06/04/04 documented as of this encounter
--- OUTSIDE RECORDS SUMMARY | 2024-10-24 17:18 | XMS_ITS | Encounter Summary ---
Author Organization [facility] Address [address] [place] [address] Care Team Providers Care Oxygen Therapist Name Role Phone Oleg Hamilton MD Primary Care Provider +1- [phone] Encounter Details Date Type Department Care Team (Latest Contact Info) Description 11/10/2005 Outpatient Historical [facility] Cancer and Hematology [address] [place] [address] [address] [place] [address] Jimi Adams MD [address] [place] [address] Unspecified Iron Deficiency Anemia (Primary Dx); Adv Eff Med/Biol Sub Social History Tobacco Use Types Packs/Day Years Used Date Smoking Tobacco: Never Assessed Comments Unknown Sex and Gender Information Value Date Recorded Sex Assigned at Not on file Legal Sex Female 5:17 AM BRAN MIXER Gender Identity Not on file Sexual Orientation Not on file documented as of this encounter Plan of Treatment Not on file documented as of this encounter Visit Diagnoses Diagnosis Iron deficiency anemia, unspecified- Primary Other and unspecified adverse effect of drug, medicinal and biological substance documented in this encounter Care Teams Oxygen Therapist Relationship Specialty Start Date End Date Oleg Hamilton MD PCP - General 06/04/04 documented as of this encounter
--- OUTSIDE RECORDS SUMMARY | 2024-10-24 17:18 | XMS_ITS | Encounter Summary ---
Author Organization [facility] Address [address] [place] [address] Care Team Providers Care Dredge Worker Name Role Phone Oleg Hamilton MD Primary Care Provider +1- [phone] Encounter Details Date Type Department Care Team (Late st Contact Info) Description 12/29/2006 Outpatient Historical [facility] Cancer and Hematology [address] [place] [address] [address] [place] [address] Social History Tobacco Use Types Packs/Day Years Used Date Smoking Tobacco: Never Assessed Comments Unknown Sex and Gender Information Value Date Recorded Sex Assigned at Not on file Legal Sex Female 5:17 AM SENIOR STEREO COMPILER TEAM LEAD Gender Identity Not on file Sexual Orientation Not on file documented as of this encounter Plan of Treatment Not on file documented as of this encounter Visit Diagnoses Not on filedocumented in this encounter Care Teams Dredge Worker Relationship Specialty Start Date End Date Oleg Hamilton MD PCP - General 06/04/04 documented as of this encounter
--- OUTSIDE RECORDS SUMMARY | 2024-10-24 17:18 | XMS_ITS | Encounter Summary ---
Author Organization [facility] Address [address] [place] [address] Care Team Providers Care Harp Action Assembler Name Role Phone Oleg Hamilton MD Primary Care Provider +1- [phone] Encounter Details Date Type Department Care Team (Late st Contact Info) Description 07/31/2008 Ancillary Orders [facility] Pain Management Procedures [address] [place] [address] Sidney Cortés MD NO ADDRESS ON FILE Radiculitis, Lumbosacral Social History Tobacco Use Types Packs/Day Years Used Date Smoking Tobacco: Never Alcohol Use Standard Drinks/Week Comments Yes 0 (1 standard drink = 0.6 oz pur e alcohol) occasional Comments No Sex and Gender Information Value Date Recorded Sex Assigned at Not on file Legal Sex Female 5:17 AM ELEVATED MOTORMAN Gender Identity Not on file Sexual Orientation Not on file documented as of this encounter Plan of Treatment Scheduled Orders Name Type Priority Associated Diagnoses Orde r Schedule XR FLUORO NEEDLE GUIDANCE Imaging Routine Radiculitis, Lumbosacral 1 Occurrences starting 07/31/2008 until 07/31/2009 documented as of this encounter Results * XR FLUORO NEEDLE GUIDANCE (07/31/2008 8:10 AM CDT) Sidney Cortés MD DIAGNOSTIC IMAGING ORDERABLES Final Result documented in this encounter Visit Diagnoses Diagnosis Radiculitis, lumbosacral Thoracic or lumbosacral neuritis or radiculitis, unspecified documented in this encounter Care Teams Harp Action Assembler Relationship Specialty Start Date End Date Oleg Hamilton MD PCP - General 06/04/04 documented as of this encounter
--- OUTSIDE RECORDS SUMMARY | 2024-10-24 17:18 | XMS_ITS | Encounter Summary ---
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 Dx); Lumbago; Lumbosacral Spondylosis Social History Tobacco Use Types Packs/Day Years Used Date Smoking Tobacco: Never Assessed Comments Unknown Sex and Gender Information Value Date Recorded Sex Assigned at Not on file Legal Sex Female 5:17 AM HAND WORKER Gender Identity Not on file Sexual Orientation Not on file documented as of this encounter Plan of Treatment Not on file documented as of this encounter Visit Diagnoses Diagnosis Degeneration of lumbar or lumbosacral intervertebral disc- Primary Lumbago Lumbosacral spondylosis Lumbosacral spondylosis without myelopathy documented in this encounter Care Teams Plumber Gasfitter Relationship Specialty Start Date End Date Oleg Hamilton MD PCP - General 06/04/04 documented as of this encounter
--- OUTSIDE RECORDS SUMMARY | 2024-10-24 17:19 | XMS_ITS | Encounter Summary ---
Author Organization [facility] Address [address] [place] [address] Care Team Providers Care Filer And Sander Name Role Phone Oleg Hamilton MD Primary Care Provider +1- [phone] Encounter Details Date Type Department Care Team (Late st Contact Info) Description 01/16/2007 Outpatient Historical [facility] Social History Tobacco Use Types Packs/Day Years Used Date Smoking Tobacco: Never Assessed Comments Unknown Sex and Gender Information Value Date Recorded Sex Assigned at Not on file Legal Sex Female 5:17 AM FLEET SERVICE MANAGER Gender Identity Not on file Sexual Orientation Not on file documented as of this encounter Plan of Treatment Not on file documented as of this encounter Visit Diagnoses Not on filedocumented in this encounter Care Teams Filer And Sander Relationship Specialty Start Date End Date Oleg Hamilton MD PCP - General 06/04/04 documented as of this encounter
--- OUTSIDE RECORDS SUMMARY | 2024-10-24 17:19 | XMS_ITS | Encounter Summary ---
Author Organization [facility] Address [address] [place] [address] Care Team Providers Care Thermograph Operator Name Role Phone Oleg Hamilton MD Primary Care Provider +1- [phone] Encounter Details Date Type Department Care Team (Late st Contact Info) Description 11/09/2007 Outpatient Historical [facility] Pain Management Procedures [address] [place] [phone] Sidney Cortés MD NO ADDRESS ON FILE Social History Tobacco Use Types Packs/Day Years Used Date Smoking Tobacco: Never Assessed Comments Unknown Sex and Gender Information Value Date Recorded Sex Assigned at Not on file Legal Sex Female 5:17 AM PROJECT DRILLING ENGINEER Gender Identity Not on file Sexual Orientation Not on file documented as of this encounter Plan of Treatment Not on file documented as of this encounter Visit Diagnoses Not on filedocumented in this encounter Care Teams Thermograph Operator Relationship Specialty Start Date End Date Oleg Hamilton MD PCP - General 06/04/04 documented as of this encounter
--- OUTSIDE RECORDS SUMMARY | 2024-10-24 17:19 | XMS_ITS | Encounter Summary ---
Author Organization [facility] Address [address] [place] [address] Care Team Providers Care Oracle E Business Developer Name Role Phone Oleg Hamilton MD Primary Care Provider +1- [phone] Encounter Details Date Type Department Care Team (Latest Contact Info) Description 08/18/2007 Outpatient Historical [facility] [address] [place] [address] [place] [phone] Esther Cr, SHERIN [address] [place] [address] Degeneration of Lumbar or Lumbosacral Intervertebral Disc; Personal History of Allergy to Analgesic Agent Social History Tobacco Use Types Packs/Day Years Used Date Smoking Tobacco: Never Assessed Comments Unknown Sex and Gender Information Value Date Recorded Sex Assigned at Not on file Legal Sex Female 5:17 AM FLOOR REPRESENTATIVE Gender Identity Not on file Sexual Orientation Not on file documented as of this encounter Plan of Treatment Not on file documented as of this encounter Visit Diagnoses Diagnosis Degeneration of lumbar or lumbosacral intervertebral disc Personal history of allergy to analgesic agent documented in this encounter Care Teams Oracle E Business Developer Relationship Specialty Start Date End Date Oleg Hamilton MD PCP - General 06/04/04 documented as of this encounter
--- OUTSIDE RECORDS SUMMARY | 2024-10-24 17:19 | XMS_ITS | Encounter Summary ---
Author Organization [facility] Address [address] [place] [address] Care Team Providers Care Seo Manager Name Role Phone Oleg Hamilton MD Primary Care Provider +1- [phone] Encounter Details Date Type Department Care Team (Late st Contact Info) Description 12/21/2007 Outpatient [facility] [address] [place] [phone] Sidney Cortés MD NO ADDRESS ON FILE Social History Tobacco Use Types Packs/Day Years Used Date Smoking Tobacco: Never Assessed Comments Unknown Sex and Gender Information Value Date Recorded Sex Assigned at Not on file Legal Sex Female 5:17 AM EMPLOYEE REPRESENTATIVE Gender Identity Not on file Sexual Orientation Not on file documented as of this encounter Plan of Treatment Not on file documented as of this encounter Visit Diagnoses Not on filedocumented in this encounter Care Teams Seo Manager Relationship Specialty Start Date End Date Oleg Hamilton MD PCP - General 06/04/04 documented as of this encounter
--- OUTSIDE RECORDS SUMMARY | 2024-10-24 17:19 | XMS_ITS | Encounter Summary ---
Author Organization [facility] Address [address] [place] [address] Care Team Providers Care Psychologist Personnel Name Role Phone Oleg Hamilton MD Primary Care Provider +1- [phone] Encounter Details Date Type Department Care Team (Late st Contact Info) Description 01/24/2007 Outpatient Historical [facility] Social History Tobacco Use Types Packs/Day Years Used Date Smoking Tobacco: Never Assessed Comments Unknown Sex and Gender Information Value Date Recorded Sex Assigned at Not on file Legal Sex Female 5:17 AM CERTIFIED JUVENILE PROBATION OFFICER Gender Identity Not on file Sexual Orientation Not on file documented as of this encounter Plan of Treatment Not on file documented as of this encounter Visit Diagnoses Not on filedocumented in this encounter Care Teams Psychologist Personnel Relationship Specialty Start Date End Date Oleg Hamilton MD PCP - General 06/04/04 documented as of this encounter
--- OUTSIDE RECORDS SUMMARY | 2024-10-24 17:19 | XMS_ITS | Encounter Summary ---
Author Organization [facility] Address [address] [place] [address] Care Team Providers Care Supervising Librarian Name Role Phone Oleg Hamilton MD Primary Care Provider +1- [phone] Encounter Details Date Type Department Care Team (Late st Contact Info) Description 01/26/2007 Outpatient Historical [facility] Social History Tobacco Use Types Packs/Day Years Used Date Smoking Tobacco: Never Assessed Comments Unknown Sex and Gender Information Value Date Recorded Sex Assigned at Not on file Legal Sex Female 5:17 AM TAIL SAWYER Gender Identity Not on file Sexual Orientation Not on file documented as of this encounter Plan of Treatment Not on file documented as of this encounter Visit Diagnoses Not on filedocumented in this encounter Care Teams Supervising Librarian Relationship Specialty Start Date End Date Oleg Hamilton MD PCP - General 06/04/04 documented as of this encounter
--- OUTSIDE RECORDS SUMMARY | 2024-10-24 17:19 | XMS_ITS | Encounter Summary ---
Author Organization [facility] Address [address] [place] [address] Care Team Providers Care Profiler Hand Name Role Phone Oleg Hamilton MD Primary Care Provider +1- [phone] Encounter Details Date Type Department Care Team (Latest Contact Info) Description 10/10/2007 Outpatient Historical [facility] Chronic Pain [address] [place] [address] Sidney Cortés MD NO ADDRESS ON FILE Degeneration of Lumbar or Lumbosacral Intervertebral Disc Social History Tobacco Use Types Packs/Day Years Used Date Smoking Tobacco: Never Assessed Comments Unknown Sex and Gender Information Value Date Recorded Sex Assigned at Not on file Legal Sex Female 5:17 AM STATION REPAIRER Gender Identity Not on file Sexual Orientation Not on file documented as of this encounter Plan of Treatment Not on file documented as of this encounter Visit Diagnoses Diagnosis Degeneration of lumbar or lumbosacral intervertebral disc documented in this encounter Care Teams Profiler Hand Relationship Specialty Start Date End Date Oleg Hamilton MD PCP - General 06/04/04 documented as of this encounter
--- OUTSIDE RECORDS SUMMARY | 2024-10-24 17:19 | XMS_ITS | Encounter Summary ---
Author Organization [facility] Address [address] [place] [address] Care Team Providers Care Mercury Cell Cleaner Name Role Phone Oleg Hamilton MD Primary Care Provider +1- [phone] Encounter Details Date Type Department Care Team (Latest Contact Info) Description 03/07/[address] [facility] Pain Management Procedures [address] [place] [phone] Sidney Cortés MD NO ADDRESS ON FILE Displacement of Lumbar Intervertebral Disc without Myelopathy (Primary Dx) Social History Tobacco Use Types Packs/Day Years Used Date Smoking Tobacco: Never Assessed Comments Unknown Sex and Gender Information Value Date Recorded Sex Assigned at Not on file Legal Sex Female 5:17 AM UX DESIGN MANAGER Gender Identity Not on file Sexual Orientation Not on file documented as of this encounter Plan of Treatment Not on file documented as of this encounter Visit Diagnoses Diagnosis Displacement of lumbar intervertebral disc without myelopathy- Primary documented in this encounter Care Teams Mercury Cell Cleaner Relationship Specialty Start Date End Date Oleg Hamilton MD PCP - General 06/04/04 documented as of this encounter
--- OUTSIDE RECORDS SUMMARY | 2024-10-24 17:19 | XMS_ITS | Encounter Summary ---
Author Organization [facility] Address [address] [place] [address] Care Team Providers Care Hot Tar Roofer Helper Name Role Phone Oleg Hamilton MD Primary Care Provider +1- [phone] Encounter Details Date Type Department Care Team (Late st Contact Info) Description 11/16/2007 Outpatient Historical [facility] Arianne Cook I, RODRIGO [address] [place] [address] Jacinto Pastor Social History Tobacco Use Types Packs/Day Years Used Date Smoking Tobacco: Never Assessed Comments Unknown Sex and Gender Information Value Date Recorded Sex Assigned at Not on file Legal Sex Female 5:17 AM CURRICULUM COACH Gender Identity Not on file Sexual Orientation Not on file documented as of this encounter Plan of Treatment Not on file documented as of this encounter Visit Diagnoses Not on filedocumented in this encounter Care Teams Hot Tar Roofer Helper Relationship Specialty Start Date End Date Oleg Hamilton MD PCP - General 06/04/04 documented as of this encounter
--- OUTSIDE RECORDS SUMMARY | 2024-10-24 17:19 | XMS_ITS | Encounter Summary ---
Author Organization [facility] Address [address] [place] [address] Care Team Providers Care Counterperson Name Role Phone Oleg Hamilton MD Primary Care Provider +1- [phone] Encounter Details Date Type Department Care Team (Late st Contact Info) Description 07/28/2007 Outpatient [facility] [address] [place] [address] Sidney Cortés MD NO ADDRESS ON FILE Social History Tobacco Use Types Packs/Day Years Used Date Smoking Tobacco: Never Assessed Comments Unknown Sex and Gender Information Value Date Recorded Sex Assigned at Not on file Legal Sex Female 5:17 AM DIRECTOR EMERGENCY Gender Identity Not on file Sexual Orientation Not on file documented as of this encounter Plan of Treatment Not on file documented as of this encounter Visit Diagnoses Not on filedocumented in this encounter Care Teams Counterperson Relationship Specialty Start Date End Date Oleg Hamilton MD PCP - General 06/04/04 documented as of this encounter
--- OUTSIDE RECORDS SUMMARY | 2024-10-24 17:19 | XMS_ITS | Encounter Summary ---
Author Organization [facility] Address [address] [place] [address] Care Team Providers Care Addiction Medicine Physician Name Role Phone Oleg Hamilton MD Primary Care Provider +1- [phone] Encounter Details Date Type Department Care Team (Late st Contact Info) Description 03/29/[address] [facility] [address] [place] [phone] Sidney Cortés MD NO ADDRESS ON FILE Social History Tobacco Use Types Packs/Day Years Used Date Smoking Tobacco: Never Assessed Comments Unknown Sex and Gender Information Value Date Recorded Sex Assigned at Not on file Legal Sex Female 5:17 AM BED LASTER Gender Identity Not on file Sexual Orientation Not on file documented as of this encounter Plan of Treatment Not on file documented as of this encounter Visit Diagnoses Not on filedocumented in this encounter Care Teams Addiction Medicine Physician Relationship Specialty Start Date End Date Oleg Hamilton MD PCP - General 06/04/04 documented as of this encounter
--- OUTSIDE RECORDS SUMMARY | 2024-10-24 17:19 | XMS_ITS | Encounter Summary ---
Author Organization [facility] Address [address] [place] [address] Care Team Providers Care Gis Instructor Name Role Phone Oleg Hamilton MD Primary Care Provider +1- [phone] Encounter Details Date Type Department Care Team (Late st Contact Info) Description 06/29/2007 Outpatient [facility] [address] [place] [phone] Sidney Cortés MD NO ADDRESS ON FILE Social History Tobacco Use Types Packs/Day Years Used Date Smoking Tobacco: Never Assessed Comments Unknown Sex and Gender Information Value Date Recorded Sex Assigned at Not on file Legal Sex Female 5:17 AM ACID REGENERATOR Gender Identity Not on file Sexual Orientation Not on file documented as of this encounter Plan of Treatment Not on file documented as of this encounter Visit Diagnoses Not on filedocumented in this encounter Care Teams Gis Instructor Relationship Specialty Start Date End Date Oleg Hamilton MD PCP - General 06/04/04 documented as of this encounter
--- OUTSIDE RECORDS SUMMARY | 2024-10-24 17:19 | XMS_ITS | Encounter Summary ---
Author Organization [facility] Address [address] [place] [address] Care Team Providers Care Axle Turner Name Role Phone Oleg Hamilton MD Primary Care Provider +1- [phone] Encounter Details Date Type Department Care Team (Late st Contact Info) Description 11/01/2007 Outpatient Historical [facility] CANCELLED ADMISSION Maggie Dorsey MD [address] [place] [phone] Social History Tobacco Use Types Packs/Day Years Used Date Smoking Tobacco: Never Assessed Comments Unknown Sex and Gender Information Value Date Recorded Sex Assigned at Not on file Legal Sex Female 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
--- OUTSIDE RECORDS SUMMARY | 2024-10-24 17:19 | XMS_ITS | Encounter Summary ---
Author Organization [facility] Address [address] [place] [address] Care Team Providers Care Rn Telephonic Name Role Phone Oleg Hamilton MD Primary Care Provider +1- [phone] Encounter Details Date Type Department Care Team (Late st Contact Info) Description 08/04/2007 Outpatient [facility] [address] [place] [address] Maggie Dorsey MD [address] [place] [address] Peptic Ulcer, Site NOS; Diverticulitis of Colon (without Mention of Hemorrhage); Personal History of Allergy to Narcotic Agent Social History Tobacco Use Types Packs/Day Years Used Date Smoking Tobacco: Never Assessed Comments Unknown Sex and Gender Information Value Date Recorded Sex Assigned at Not on file Legal Sex Female 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 Gender Identity Not on file Sexual Orientation Not on file documented as of this encounter Plan of Treatment Not on file documented as of this encounter Visit Diagnoses Diagnosis Peptic ulcer, unspecified site, unspecified as acute or chronic, without mention of hemorrhage, perforation, or obstruction Diverticulitis of colon (without mention of hemorrhage)(562.11) Diverticulitis of colon (without mention of hemorrhage) Personal history of allergy to narcotic agent documented in this encounter Care Teams Rn Telephonic Relationship Specialty Start Date End Date Oleg Hamilton MD PCP - General 06/04/04 documented as of this encounter
--- OUTSIDE RECORDS SUMMARY | 2024-10-24 17:19 | XMS_ITS | Encounter Summary ---
Author Organization [facility] Address [address] [place] [address] Care Team Providers Care Seasonal Greenery Bundler Name Role Phone Oleg Hamilton MD Primary Care Provider +1- [phone] Encounter Details Date Type Department Care Team (Latest Contact Info) Description 07/18/2007 Outpatient Historical [facility] [address] [address] [facility] [address] [place] [address] Zhen Bliss, RODRIGO [facility] Office [address] [place] [address] Lumbosacral Spondylosis without Myelopathy; Degeneration of Lumbar or Lumbosacral Intervertebral Disc; Personal History of Allergy to Narcotic Agent Social History Tobacco Use Types Packs/Day Years Used Date Smoking Tobacco: Never Assessed Comments Unknown Sex and Gender Information Value Date Recorded Sex Assigned at Not on file Legal Sex Female 5:17 AM BUTCHER APPRENTICE Gender Identity Not on file Sexual Orientation Not on file documented as of this encounter Plan of Treatment Not on file documented as of this encounter Visit Diagnoses Diagnosis Lumbosacral spondylosis without myelopathy Degeneration of lumbar or lumbosacral intervertebral disc Personal history of allergy to narcotic agent documented in this encounter Care Teams Seasonal Greenery Bundler Relationship Specialty Start Date End Date Oleg Hamilton MD PCP - General 06/04/04 documented as of this encounter
--- OUTSIDE RECORDS SUMMARY | 2024-10-24 17:19 | XMS_ITS | Encounter Summary ---
Author Organization [facility] Address [address] [place] [address] Care Team Providers Care News Assignment Editor Name Role Phone Oleg Hamilton MD Primary Care Provider +1- [phone] Encounter Details Date Type Department Care Team (Latest Contact Info) Description 02/15/2007 Outpatient Historical [facility] Pain Management Procedures [address] [place] [phone] Sidney Cortés MD NO ADDRESS ON FILE Displacement of Lumbar Intervertebral Disc without Myelopathy (Primary Dx) Social History Tobacco Use Types Packs/Day Years Used Date Smoking Tobacco: Never Assessed Comments Unknown Sex and Gender Information Value Date Recorded Sex Assigned at Not on file Legal Sex Female 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
--- OUTSIDE RECORDS SUMMARY | 2024-10-24 17:19 | XMS_ITS | Encounter Summary ---
Author Organization [facility] Address [address] [place] [address] Care Team Providers Care Receiver Dispatcher Name Role Phone Oleg Hamilton MD Primary Care Provider +1- [phone] Encounter Details Date Type Department Care Team ([facility] st Contact Info) Description 02/16/2007 Outpatient [facility] Physical Therapy Services [place] [address] [place] [address] Sidney Cortés MD NO ADDRESS ON FILE Social History Tobacco Use Types Packs/Day Years Used Date Smoking Tobacco: Never Assessed Comments Unknown Sex and Gender Information Value Date Recorded Sex Assigned at Not on file Legal Sex Female 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
--- OUTSIDE RECORDS SUMMARY | 2024-10-24 17:19 | XMS_ITS | Encounter Summary ---
Author Organization [facility] Address [address] [place] [address] Care Team Providers Care Tape Cutting Machine Operator Name Role Phone Oleg Hamilton MD Primary Care Provider +1- [phone] Encounter Details Date Type Department Care Team (Late st Contact Info) Description 08/14/2007 Outpatient Historical [facility] [address] [place] [phone] Sidney Cortés MD NO ADDRESS ON FILE Social History Tobacco Use Types Packs/Day Years Used Date Smoking Tobacco: Never Assessed Comments Unknown Sex and Gender Information Value Date Recorded Sex Assigned at Not on file Legal Sex Female 5:17 AM FIRE ENGINEER Gender Identity Not on file Sexual Orientation Not on file documented as of this encounter Plan of Treatment Not on file documented as of this encounter Visit Diagnoses Not on filedocumented in this encounter Care Teams Tape Cutting Machine Operator Relationship Specialty Start Date End Date Oleg Hamilton MD PCP - General 06/04/04 documented as of this encounter
--- OUTSIDE RECORDS SUMMARY | 2024-10-24 17:19 | XMS_ITS | Encounter Summary ---
Author Organization [facility] Address [address] [place] [address] Care Team Providers Care Phone Engineer Name Role Phone Oleg Hamilton MD Primary Care Provider +1- [phone] Encounter Details Date Type Department Care Team (Late st Contact Info) Description 07/26/2007 Outpatient Historical 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
--- OUTSIDE RECORDS SUMMARY | 2024-10-24 17:19 | XMS_ITS | Encounter Summary ---
Author Organization [facility] Address [address] [place] [address] Care Team Providers Care Fisher Quahog Name Role Phone Oleg Hamilton MD Primary Care Provider +1- [phone] Encounter Details Date Type Department Care Team (Latest Contact Info) Description 09/19/2007 Outpatient Historical [facility] [address] [place] [address] [place] [address] [address] Cr, SHERIN [address] [place] [address] Degeneration of Lumbar or Lumbosacral Intervertebral Disc; Unspecified Anemia; Personal History of Allergy to Analgesic Agent Social History Tobacco Use Types Packs/Day Years Used Date Smoking Tobacco: Never Assessed Comments Unknown Sex and Gender Information Value Date Recorded Sex Assigned at Not on file Legal Sex Female 5:17 AM RN GYNECOLOGY Gender Identity Not on file Sexual Orientation Not on file documented as of this encounter Plan of Treatment Not on file documented as of this encounter Visit Diagnoses Diagnosis Degeneration of lumbar or lumbosacral intervertebral disc Anemia, unspecified Personal history of allergy to analgesic agent documented in this encounter Care Teams Fisher Quahog Relationship Specialty Start Date End Date Oleg Hamilton MD PCP - General 06/04/04 documented as of this encounter
--- OUTSIDE RECORDS SUMMARY | 2024-10-24 17:19 | XMS_ITS | Encounter Summary ---
Author Organization [facility] Address [address] [place] [address] Care Team Providers Care Floor Mechanic Name Role Phone Oleg Hamilton MD Primary Care Provider +1- [phone] Encounter Details Date Type Department Care Team (Latest Contact Info) Description 12/25/[address] 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 No report expected. Procedure Note 05/12/2008 Finalized by interface cleanup utility. No report expected. us Sidney Cortés MD DIAGNOSTIC IMAGING ORDERABLES Final Result documented in this encounter Visit Diagnoses Diagnosis Lumbosacral spondylosis without myelopathy Degeneration of lumbar or lumbosacral intervertebral disc documented in this encounter Care Teams Floor Mechanic Relationship Specialty Start Date End Date Oleg Hamilton MD PCP - General 06/04/04 documented as of this encounter
--- OUTSIDE RECORDS SUMMARY | 2024-10-24 17:19 | XMS_ITS | Encounter Summary ---
Author Organization [facility] Address [address] [place] [address] Care Team Providers Care Theater Technician Name Role Phone Oleg Hamilton MD Primary Care Provider +1- [phone] Encounter Details Date Type Department Care Team (Late st Contact Info) Description 10/06/2007 Outpatient [facility] Specialty Nursing Services [facility] [address] [place] [address] Maggie Dorsey MD [address] [place] [address] Social History Tobacco Use Types Packs/Day Years Used Date Smoking Tobacco: Never Assessed Comments Unknown Sex and Gender Information Value Date Recorded Sex Assigned at Not on file Legal Sex Female 5:17 AM OLIVE KNOCKER Gender Identity Not on file Sexual Orientation Not on file documented as of this encounter Plan of Treatment Not on file documented as of this encounter Visit Diagnoses Not on filedocumented in this encounter Care Teams Theater Technician Relationship Specialty Start Date End Date Oleg Hamilton MD PCP - General 06/04/04 documented as of this encounter
--- OUTSIDE RECORDS SUMMARY | 2024-10-24 17:19 | XMS_ITS | Encounter Summary ---
Author Organization [facility] Address [address] [place] [address] Care Team Providers Care Tennis Coach Name Role Phone Oleg Hamilton MD Primary Care Provider +1- [phone] Encounter Details Date Type Department Care Team (Latest Contact Info) Description 11/30/[address] [facility] Pain Management Procedures [address] 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 No report expected. Procedure Note 01/11/2009 Finalized by interface cleanup utility. No report expected. us Sidney Cortés MD DIAGNOSTIC IMAGING ORDERABLES Final Result documented in this encounter Visit Diagnoses Diagnosis Lumbosacral spondylosis without myelopathy Degeneration of lumbar or lumbosacral intervertebral disc Thoracic or lumbosacral neuritis or radiculitis, unspecified Personal history of allergy to analgesic agent documented in this encounter Care Teams Tennis Coach Relationship Specialty Start Date End Date Oleg Hamilton MD PCP - General 06/04/04 documented as of this encounter
--- OUTSIDE RECORDS SUMMARY | 2024-10-24 17:19 | XMS_ITS | Encounter Summary ---
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
--- OUTSIDE RECORDS SUMMARY | 2024-10-24 17:19 | XMS_ITS | Encounter Summary ---
Author Organization [facility] Address [address] [place] [address] Care Team Providers Care Clerical Assistant Name Role Phone Oleg Hamilton MD Primary Care Provider +1- [phone] Encounter Details Date Type Department Care Team (Late st Contact Info) Description 10/25/2007 Outpatient Historical [facility] Pain Management Procedures [address] [place] [address] Sidney Cortés MD NO ADDRESS ON FILE Social History Tobacco Use Types Packs/Day Years Used Date Smoking Tobacco: Never Assessed Comments Unknown Sex and Gender Information Value Date Recorded Sex Assigned at Not on file Legal Sex Female 5:17 AM SHOE DYER Gender Identity Not on file Sexual Orientation Not on file documented as of this encounter Plan of Treatment Not on file documented as of this encounter Procedures Procedure Name Priority Date/Time Associated Diagnosis Comments XR FLUORO GREATER THAN 1 HOUR Routine 10/31/2007 4:12 PM CDT documented in this encounter Results * XR FLUORO > 1 HOUR (10/31/2007 4:12 PM CDT) Anatomical Region Laterality Modality Other 10/31/2007 4:12 PM CDT Narrative 10/31/2007 4:12 PM CDT Finalized by interface [employer] utility. No report expected. Procedure Note 05/12/2008 Finalized by interface [employer] utility. No report expected. us Sidney Cortés MD DIAGNOSTIC IMAGING ORDERABLES Final Result documented in this encounter Visit Diagnoses Not on filedocumented in this encounter Care Teams Clerical Assistant Relationship Specialty Start Date End Date Oleg Hamilton MD PCP - General 06/04/04 documented as of this encounter
--- OUTSIDE RECORDS SUMMARY | 2024-10-24 17:19 | XMS_ITS | Encounter Summary ---
Author Organization [facility] Address [address] [place] [address] Care Team Providers Care Marketing Teacher Name Role Phone Oleg Hamilton MD Primary Care Provider +1- [phone] Encounter Details Date Type Department Care Team (Late st Contact Info) Description 04/18/2007 Outpatient [facility] [address] [place] [address] Social History Tobacco Use Types Packs/Day Years Used Date Smoking Tobacco: Never Assessed Comments Unknown Sex and Gender Information Value Date Recorded Sex Assigned at Not on file Legal Sex Female 5:17 AM SPECIFICATION MANAGER Gender Identity Not on file Sexual Orientation Not on file documented as of this encounter Plan of Treatment Not on file documented as of this encounter Visit Diagnoses Not on filedocumented in this encounter Care Teams Marketing Teacher Relationship Specialty Start Date End Date Oleg Hamilton MD PCP - General 06/04/04 documented as of this encounter
--- OUTSIDE RECORDS SUMMARY | 2024-10-24 17:19 | XMS_ITS | Encounter Summary ---
Author Organization [facility] Address [address] [place] [address] Care Team Providers Care Pillowcase Sewer Name Role Phone Oleg Hamilton MD Primary Care Provider +1- [phone] Encounter Details Date Type Department Care Team (Late st Contact Info) Description 09/05/2007 Outpatient [facility] Specialty Nursing Services [facility] [address] [place] [address] Maggie Dorsey MD [address] [place] [address] Social History Tobacco Use Types Packs/Day Years Used Date Smoking Tobacco: Never Assessed Comments Unknown Sex and Gender Information Value Date Recorded Sex Assigned at Not on file Legal Sex Female 5:17 AM POTATO SEED CUTTER Gender Identity Not on file Sexual Orientation Not on file documented as of this encounter Plan of Treatment Not on file documented as of this encounter Visit Diagnoses Not on filedocumented in this encounter Care Teams Pillowcase Sewer Relationship Specialty Start Date End Date Oleg Hamilton MD PCP - General 06/04/04 documented as of this encounter
--- OUTSIDE RECORDS SUMMARY | 2024-10-24 17:19 | XMS_ITS | Encounter Summary ---
Author Organization [facility] Address [address] [place] [address] Care Team Providers Care Public Welfare Director Name Role Phone Oleg Haimlton MD Primary Care Provider +1- [phone] Encounter Details Date Type Department Care Team (Late st Contact Info) Description 12/07/2007 Outpatient Historical [facility] [address] [place] [address] Sidney Cortés MD NO ADDRESS ON FILE Social History Tobacco Use Types Packs/Day Years Used Date Smoking Tobacco: Never Assessed Comments Unknown Sex and Gender Information Value Date Recorded Sex Assigned at Not on file Legal Sex Female 5:17 AM SERVICE DISPATCHER Gender Identity Not on file Sexual Orientation Not on file documented as of this encounter Plan of Treatment Not on file documented as of this encounter Visit Diagnoses Not on filedocumented in this encounter Care Teams Public Welfare Director Relationship Specialty Start Date End Date Oleg Hamilton MD PCP - General 06/04/04 documented as of this encounter
--- OUTSIDE RECORDS SUMMARY | 2024-10-24 17:19 | XMS_ITS | Encounter Summary ---
Author Organization [facility] Address [address] [place] [address] Care Team Providers Care Line Camera Operator Name Role Phone Oleg Hamilton MD Primary Care Provider +1- [phone] Encounter Details Date Type Department Care Team (Late st Contact Info) Description 11/14/2008 Ancillary Orders [facility] Pain [facility] [address] [place] [phone] Sidney Cortés MD NO ADDRESS ON FILE Lumbosacral Spondylosis without Myelopathy Social History Tobacco Use Types Packs/Day Years Used Date Smoking Tobacco: Never Alcohol Use Standard Drinks/Week Comments Yes 0 (1 standard drink = 0.6 oz pur e alcohol) occasional Comments No Sex and Gender Information Value Date Recorded Sex Assigned at Not on file Legal Sex Female 5:17 AM CONSTRUCTION SUPERVISOR Gender Identity Not on file Sexual Orientation Not on file documented as of this encounter Plan of Treatment Scheduled Orders Name Type Priority Associated Diagnoses Orde r Schedule XR FLUORO NEEDLE GUIDANCE Imaging Routine Lumbosacral Spondylosis without Myelopathy 1 Occurrences starting 11/14/2008 until 11/14/2009 documented as of this encounter Results * XR FLUORO NEEDLE GUIDANCE (11/14/2008 7:55 AM CDT) us Sidney Cortés MD DIAGNOSTIC IMAGING ORDERABLES Final Result documented in this encounter Visit Diagnoses Diagnosis Lumbosacral spondylosis without myelopathy documented in this encounter Care Teams Line Camera Operator Relationship Specialty Start Date End Date Oleg Hamilton MD PCP - General 06/04/04 documented as of this encounter
--- OUTSIDE RECORDS SUMMARY | 2024-10-24 17:19 | XMS_ITS | Encounter Summary ---
Author Organization [facility] Address [address] [place] [address] Care Team Providers Care Media Production Operator Name Role Phone Oleg Hamilton MD Primary Care Provider +1- [phone] Encounter Details Date Type Department Care Team ([facility] st Contact Info) Description 03/19/2007 Outpatient [facility] Physical Therapy Services [place] [address] [place] [address] Sidney Cortés MD NO ADDRESS ON FILE Social History Tobacco Use Types Packs/Day Years Used Date Smoking Tobacco: Never Assessed Comments Unknown Sex and Gender Information Value Date Recorded Sex Assigned at Not on file Legal Sex Female 5:17 AM CIRCUS ARTIST Gender Identity Not on file Sexual Orientation Not on file documented as of this encounter Plan of Treatment Not on file documented as of this encounter Visit Diagnoses Not on filedocumented in this encounter Care Teams Media Production Operator Relationship Specialty Start Date End Date Oleg Hamilton MD PCP - General 06/04/04 documented as of this encounter
--- OUTSIDE RECORDS SUMMARY | 2024-10-24 17:19 | XMS_ITS | Encounter Summary ---
Author Organization [facility] Address [address] [place] [address] Care Team Providers Care Manager Home Improvement Name Role Phone Oleg Hamilton MD Primary Care Provider +1- [phone] Encounter Details Date Type Department Care Team (Late st Contact Info) Description 10/24/2007 Outpatient [facility] [address] [place] [phone] Sidney Cortés MD NO ADDRESS ON FILE Social History Tobacco Use Types Packs/Day Years Used Date Smoking Tobacco: Never Assessed Comments Unknown Sex and Gender Information Value Date Recorded Sex Assigned at Not on file Legal Sex Female 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
--- OUTSIDE RECORDS SUMMARY | 2024-10-24 17:19 | XMS_ITS | Encounter Summary ---
Author Organization [facility] Address [address] [place] [address] Care Team Providers Care Manager Life Name Role Phone Oleg Hamilton MD Primary Care Provider +1- [phone] Encounter Details Date Type Department Care Team (Late st Contact Info) Description 04/18/2007 Outpatient Historical [facility] 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 SUBJECTIVE: The patient is a 47-year-old female with history of iron-deficiency anemia. The patientstates in the past she has been on oral iron supplementation in [place], [place] with no improvement in her anemia. The patient first saw Dr. [place] here and was started on IV Ferrlecit with no improvement and was switched to IV iron dextran. The patient states she has had an EGD by Dr. Ta which revealed a bleeding ulcer, but has had no followup. The patient presents today complaining of fatigue, somnolence, shortness of breath consistent with her iron deficiency. DRUG ALLERGIES: morphine. PAST MEDICAL HISTORY: Peptic ulcer disease, diverticulitis, cholecystectomy, hysterectomy, oophorectomy, rhinoplasty, knee surgery, Lasik eye surgery, breast reduction, bulging disc. CURRENT MEDICATIONS: Percocet, Duragesic, Premarin, Lexapro. SOCIAL HISTORY: The patient is , lives in [place]. 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 Nonsmoker. REVIEW OF SYSTEMS: the following systems are negative: Skin, ENT, lymph nodes, cardiac, pulmonary, GI, , endocrine, psychiatric. PHYSICAL EXAMINATION: Well-developed, well-nourished 47-year-old female in no acute distress. Vitalsigns: Blood pressure 112/60, temperature 98, pulse 76, respiratory rate 16, pain 0/10, weight 137 pounds, ECOG score 0. LABORATORY DATA: White count 8.9, hemoglobin 9.4, hematocrit 31.6, MCV 88, RDW 15.7, platelets 565. ASSESSMENT: 47-year-old female with recurrent anemia. Currently no good etiology for the patients iron deficiency. The patient denies any bright red blood per rectum, melena or hematemesis. The patient has not had a followup with Dr. ta. PLAN: iron deficiency. Will restart IV Dextran on and then give every two weeks. The patient will be referred back to Dr. Ta for possible repeat endoscopy or change in treatment, since the patient has dropped 2 grams in the last three months. Brando Dorsey M.D., Ph.D. Cancer & Hematology Electronically Signed by Brando Dorsey M.D. 06/05/2007 14:40 , 1:35 P A, 424 Document #: [id number] cc: Bobby Coburn M.D. N RECOVERY COORDINATOR documented in this encounter Plan of Treatment Not on file documented as of this encounter Visit Diagnoses Not on filedocumented in this encounter Care Teams Manager Life Relationship Specialty Start Date End Date Oleg Hamilton MD PCP - General 06/04/04 documented as of this encounter
--- OUTSIDE RECORDS SUMMARY | 2024-10-24 17:19 | XMS_ITS | Encounter Summary ---
Author Organization [facility] Address [address] [place] [address] Care Team Providers Care Lead Consultant Name Role Phone Oleg Hamilton MD Primary Care Provider +1- [phone] Encounter Details Date Type Department Care Team (Latest Contact Info) Description 04/12/2007 Inpatient Historical [facility] [place] [address] [facility] [address] [place] [address] Zhen Bliss, RODRIGO [facility] Office [address], [place] [address] Pain in Soft Tissues of Limb; Personal History of Allergy to Analgesic Agent Social History Tobacco Use Types Packs/Day Years Used Date Smoking Tobacco: Never Assessed Comments Unknown Sex and Gender Information Value Date Recorded Sex Assigned at Not on file Legal 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
--- OUTSIDE RECORDS SUMMARY | 2024-10-24 17:19 | XMS_ITS | Encounter Summary ---
Author Organization [facility] Address [address] Attn: Epic Prelude ADT [place] [address] Care Team Providers Care Mucking Machine Operator Name Role Phone Oleg Hamilton MD Primary Care Provider +1- [phone] Encounter Details Date Type Department Care Team (Late st Contact Info) Description 06/06/2007 Outpatient Historical James Ashley MD NO ADDRESS ON FILE Social History Tobacco Use Types Packs/Day Years Used Date Smoking Tobacco: Never Assessed Comments Unknown Sex and Gender Information Value Date Recorded Sex Assigned at Not on file Legal Sex Female 5:17 AM EXHIBITION SPECIALIST Gender Identity Not on file Sexual Orientation Not on file documented as of this encounter Plan of Treatment Not on file documented as of this encounter Procedures Procedure Name Priority Date/Time Associated Diagnosis Comments RUBELLA IGG Routine 06/06/2007 3:55 PM EXHIBITION SPECIALIST MUMPS IGG ANTIBODY Routine 06/06/2007 3: 55 PM EXHIBITION SPECIALIST documented in this encounter Results * (ABNORMAL) MUMPS IGG ANTIBODY (06/06/2007 3:55 PM EXHIBITION SPECIALIST) MUMPS IGG AB Non-Immune (A) Immune [facility] Blood specimen (specimen) 06/06/2007 3:55 PM EXHIBITION SPECIALIST 06/06/2007 4:20 PM EXHIBITION SPECIALIST Narrative [facility] - 06/07/2007 11:56 AM EXHIBITION SPECIALIST post offer us James Ashley MD CHEMISTRY ORDERABLES Final Res ult Performing Organization Address [facility] Co de Phone Number [facility] [address] [place] [address] * RUBELLA IGG (06/06/2007 3:55 PM EXHIBITION SPECIALIST) RUBELLA IGG Immune Immune [facility] Blood specimen (specimen) 06/06/2007 3:55 PM EXHIBITION SPECIALIST 06/06/2007 4:20 PM EXHIBITION SPECIALIST Narrative [facility] - 06/07/2007 9:18 AM EXHIBITION SPECIALIST post offer us James Ashley MD CHEMISTRY ORDERABLES Final Res ult Performing Organization Address [facility] de Phone Number [facility] [address] [place] [address] documented in this encounter Visit Diagnoses Not on filedocumented in this encounter Care Teams Mucking Machine Operator Relationship Specialty Start Date End Date Oleg Hamilton MD PCP - General 06/04/04 documented as of this encounter
--- OUTSIDE RECORDS SUMMARY | 2024-10-24 17:19 | XMS_ITS | Encounter Summary ---
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
--- OUTSIDE RECORDS SUMMARY | 2024-10-24 17:19 | XMS_ITS | Clinical Summary ---
Author Organization [facility] Address [address] [place] [address] Care Team Providers Care Continuous Miner Name Role Phone Oleg Hamilton MD Primary Care Provider +1- [phone] Allergies Active Allergy Reactions Criticality Noted Date Comments Hydromorphone (Bulk) Itching Low 03/07/2008 Morphine Itching Low 03/07/2008 Medications tizanidine (ZANAFLEX) 4 mg Oral Tab Take by mouth every 8 hours as needed. Take as directed 60 Tab 1 10/08/2008 Active acetaminophen SR 8 hour (TYLENOL ARTHRITIS) 650 mg Oral TbSRIndications :DDD (degenerative disc disease), lumbar,Radicula r pain Take 2 Tabs by mouth 1 time daily as needed for Pain. Active citalopram (CELEXA) 20 mg Oral TabIndications: DDD (degenerative disc disease), lumbar,Radicula r pain Take 2 Tabs by mouth daily at bedtime. 180 Tab 3 02/25/2009 Active conjugated estrogens (PREMARIN) 0.45 mg Oral Tab Take 1 Tab by mouth daily. 90 Tab 3 02/25/2009 Active tramadol (ULTRAM) 50 mg Oral tablet Take 2 Tabs by mouth 4 times daily. 240 Tab 3 05/09/2009 Active hydrocodone-jazzy taminophen (VICODIN ES) 7.5-750 mg Oral Tab Take 1 Tab by mouth every 6 hours as needed. 60 Tab 0 05/26/2009 Active Active Problems Problem Noted Date Diagnosed Date Elevated TSH 12/24/2008 DDD (degenerative disc disease), lumbar 10/18/19 09 Radicular pain 07/02/2008 Iron deficiency anemia Overview (12/24/2008): Dr.Holden DEJESUS Anxiety Hyperlipidemia Family History Medical History Relation Name Comments Cancer Father Cancer Mother Heart Disease Mother Relation Name Status Comments Father Mother Social History Tobacco Use Types Packs/Day Years Used Date Smoking Tobacco: Never Alcohol Use Standard Drinks/Week Comments Yes 0 (1 standard drink = 0.6 oz pur e alcohol) occasional Comments No Sex and Gender Information Value Date Recorded Sex Assigned at Not on file Legal Sex Female 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 Gender Identity Not on file Sexual Orientation Not on file Last Filed Vital Signs Vital Sign Reading Time Taken Comments Blood Pressure 112/68 03/05/2009 11:09 AM DESIGN MAINTENANCE ENGINEER Pulse 72 03/05/2009 11:09 AM DESIGN MAINTENANCE ENGINEER Temperature 36.6 C (97.9 F) 02/27/2009 10:54 AM CDT Respiratory Rate 18 03/05/2009 11:09 AM DESIGN MAINTENANCE ENGINEER Oxygen Saturation 99% 02/27/2009 10:54 AM CDT Inhaled Oxygen Concentration - - Weight 56.7 kg (125 lb) 02/27/2009 9:02 AM CDT Height 12.7 cm (5 ) 02/27/2009 9:02 AM CDT Body Mass Index 3515.38 02/27/2009 9:02 AM CDT Plan of Treatment Health Maintenance Due Date Last Done Comments DTAP/TDAP/TD VACCINES (1 - Tdap) 1980 HPV/Cotest (21-29) 1982 HPV/Cotest (30-65) 1991 FIT-DNA Q 3 years 2006 FIT/FOBT Q 1 year 2006 Flex Sig/CT Colonography Q 5 years 2006 CERVICAL CANCER SCREENING 06/25/2007 PAP SMEAR 06/25/2007 06/25/2004 BREAST CANCER SCREENING 02/14/2009 02/15/2008, 02/14 ZOSTER VACCINE (1 of 2) 2011 COLORECTAL SCREENING 11/18/2015 11/17/2005 Colorectal Cancer Screening 11/18/2015 INFLUENZA VACCINE (#1) 2023 RSV VACCINE (60+ or ) (1 - 1-dose 75+ series) 2036 Procedures Procedure Name Priority Date/Time Associated Diagnosis Comments MAMMO SCREENING BILAT Routine 02/15/2008 8:40 AM CDT from Last 3 Months or Most Recently Relevant to Health Maintenance Results * MAMMO SCREENING BILAT (02/15/2008 8:40 AM CDT) Anatomical Region Laterality Modality Breast Bilateral Other Narrative 02/15/2008 8:40 AM CDT FINAL - See Scanned Document Procedure Note 06/11/2015 FINAL - See Scanned Document us Oleg Hamilton MD MAMMO ORDERABLES Final Res ult from Last 3 Months or Most Recently Relevant to Health Maintenance Advance Directives For more information, please contact: [phone] * Full Code (Latest Code Status on File) Date Activated Date Inactivated Comments 02/27/2009 9:58 AM 02/28/2009 2:12 AM Care Teams Continuous Miner Relationship Specialty Start Date End Date lOeg Hamilton MD PCP - General 06/04/04
--- OUTSIDE RECORDS SUMMARY | 2024-10-24 17:19 | XMS_ITS | Encounter Summary ---
Author Organization [facility] Address [address] [place] [address] Care Team Providers Care Route Rider Name Role Phone Oleg Hamilton MD Primary Care Provider +1- [phone] Encounter Details Date Type Department Care Team (Latest Contact Info) Description 06/08/[address] 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
--- OUTSIDE RECORDS SUMMARY | 2024-10-24 17:19 | XMS_ITS | Encounter Summary ---
Author Organization [facility] Address [address] [place] [address] Care Team Providers Care Crane Manager Name Role Phone Oleg Hamilton MD Primary Care Provider +1- [phone] Encounter Details Date Type Department Care Team (Late st Contact Info) Description 07/12/2007 Outpatient Historical [facility] [address] [place] [address] Other, [facility] NO ADDRESS ON FILE Social History Tobacco Use Types Packs/Day Years Used Date Smoking Tobacco: Never Assessed Comments Unknown Sex and Gender Information Value Date Recorded Sex Assigned at Not on file Legal Sex Female 5:17 AM SAFETY COORDINATOR Gender Identity Not on file Sexual Orientation Not on file documented as of this encounter Plan of Treatment Not on file documented as of this encounter Visit Diagnoses Not on filedocumented in this encounter Care Teams Crane Manager Relationship Specialty Start Date End Date Oleg Hamilton MD PCP - General 06/04/04 documented as of this encounter
--- OUTSIDE RECORDS SUMMARY | 2024-10-24 17:19 | XMS_ITS | Encounter Summary ---
Author Organization [facility] Address [address] [place] [address] Care Team Providers Care Head Pastry Chef Name Role Phone Oleg Hamilton MD Primary Care Provider +1- [phone] Encounter Details Date Type Department Care Team (Latest Contact Info) Description 08/09/[address] 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
--- OUTSIDE RECORDS SUMMARY | 2024-10-24 17:19 | XMS_ITS | Encounter Summary ---
Author Organization [facility] Address [address] [place] [address] Care Team Providers Care Account Services Coordinator Name Role Phone Oleg Hamilton MD Primary Care Provider +1- [phone] Encounter Details Date Type Department Care Team (Late st Contact Info) Description 01/18/2007 Outpatient Historical [facility] Social History Tobacco Use Types Packs/Day Years Used Date Smoking Tobacco: Never Assessed Comments Unknown Sex and Gender Information Value Date Recorded Sex Assigned at Not on file Legal Sex Female 5:17 AM COMPLIANCE ASSISTANT Gender Identity Not on file Sexual Orientation Not on file documented as of this encounter Plan of Treatment Not on file documented as of this encounter Visit Diagnoses Not on filedocumented in this encounter Care Teams Account Services Coordinator Relationship Specialty Start Date End Date Oleg Hamilton MD PCP - General 06/04/04 documented as of this encounter
--- OUTSIDE RECORDS SUMMARY | 2024-10-24 17:19 | XMS_ITS | Encounter Summary ---
Author Organization [facility] Address [address] [place] [address] Care Team Providers Care Chemical Processor Name Role Phone Oleg Hamilton MD Primary Care Provider +1- [phone] Encounter Details Date Type Department Care Team (Latest Contact Info) Description 03/07/2007 Outpatient Historical [facility] [address] [place] [address] Sidney Cortés MD NO ADDRESS ON FILE Lumbar Disc Displacement (Primary Dx); Lumbago; Thoracic or Lumbosacral Neuritis or Radiculitis, Unspecified Social History Tobacco Use Types Packs/Day Years Used Date Smoking Tobacco: Never Assessed Comments Unknown Sex and Gender Information Value Date Recorded Sex Assigned at Not on file Legal Sex Female 5:17 AM ELECTRICAL INSPECTOR Gender Identity Not on file Sexual Orientation Not on file documented as of this encounter Plan of Treatment Not on file documented as of this encounter Visit Diagnoses Diagnosis Lumbar disc displacement- Primary Displacement of lumbar intervertebral disc without myelopathy Lumbago Thoracic or lumbosacral neuritis or radiculitis, unspecified documented in this encounter Care Teams Chemical Processor Relationship Specialty Start Date End Date Oleg Hamilton MD PCP - General 06/04/04 documented as of this encounter
--- OUTSIDE RECORDS SUMMARY | 2024-10-24 17:19 | XMS_ITS | Encounter Summary ---
Author Organization [facility] Address [address] [place] [address] Care Team Providers Care Tube Closing Machine Operator Name Role Phone Oleg Hamilton MD Primary Care Provider +1- [phone] Encounter Details Date Type Department Care Team (Late st Contact Info) Description 08/25/2007 Outpatient Historical [facility] [place] [address] [place] [id number] Shashi Ag MD [address] [facility] [address] [place] [address] Social History Tobacco Use Types Packs/Day Years Used Date Smoking Tobacco: Never Assessed Comments Unknown Sex and Gender Information Value Date Recorded Sex Assigned at Not on file Legal Sex Female 5:17 AM SUPERVISOR BURLING AND JOINING Gender Identity Not on file Sexual Orientation Not on file documented as of this encounter Plan of Treatment Not on file documented as of this encounter Visit Diagnoses Not on filedocumented in this encounter Care Teams Tube Closing Machine Operator Relationship Specialty Start Date End Date Oleg Hamilton MD PCP - General 06/04/04 documented as of this encounter
--- OUTSIDE RECORDS SUMMARY | 2024-10-24 17:19 | XMS_ITS | Clinical Summary ---
Author Organization [facility] Address [address] [facility] Attn: Epic Prelude ADT [place] [address] Care Team Providers Care Commodity Broker Name Role Phone Thanh Meyer MD Primary Care Provider Allergies Active Allergy Reactions Criticality Noted Date Comments Hydromorphone (Bulk) Itching Low 03/07/2008 Morphine Itching Low 03/07/2008 Medications amitriptyline (ELAVIL) 50 mg tablet Take 50 mg by mouth daily at bedtime. 4 Active Suboxone 8-[address] 1 Strip under tongue 2 times daily. 4 Active buPROPion HCL (WELLBUTRIN SR) 150 mg Sustained Release 12 hour tablet Take 1 Tablet by mouth 2 times daily. 4 Active Banophen 25 mg capsule TAKE ONE TO TWO CAPSULES BY MOUTH ONCE daily. 4 Active DULoxetine (CYMBALTA) 60 mg Capsule, Delayed Release(E.C.) Take 1 Capsule by mouth daily. 4 Active furosemide (LASIX) 20 mg tablet Take 1 Tablet by mouth daily. 4 Active lisinopriL (PRINIVIL) 2.5 mg tablet Take 1 Tablet by mouth daily. 3 Active loratadine (CLARITIN) 10 mg tablet Take 1 Tablet by mouth daily. 4 Active metoprolol succinate (TOPROL XL) 25 mg Extended Release 24 hour tablet Take 1 Tablet by mouth daily. 4 Active ondansetron (ZOFRAN ODT) 8 mg Tablet, Rapid Dissolve TAKE ONE TABLET BY MOUTH EVERY EIGHT hours needed FOR nausea AND vomiting 4 Active pantoprazole (PROTONIX) 40 mg Tablet, Delayed Release (E.C.) Take 1 Tablet by mouth 2 times daily. 4 Active spironolactone (ALDACTONE) 25 mg tablet Take 0.5 Tablets by mouth daily. 4 Active naloxone (NARCAN) 4 mg/spray [place], Non-Aerosol EMERGENCY USE ONLY: Administer 1 spray (4 mg) in one nostril one time. May repeat in alternating nostrils every 2-3 min until responsive or EMS arrives. 2 Each 3 4 Active magnesium oxide (MAG-OX) 400 mg (241.3 mg magnesium) tablet Take 1 Tablet (400 mg) by mouth daily. 30 Tablet 2 5 Active potassium CHLORIDE (KLOR-CON) 20 mEq Packet Take 1 Packet (20 mEq) by mouth daily. 30 Packet 2 5 Active Active Problems Problem Noted Date Diagnosed Date Hypomagnesemia 06/06/2024 Hypokalemia 06/06/2024 Acute hypoxic respiratory failure 06/02/2024 Acute gastroenteritis 06/01/2024 Pneumonia 06/01/2024 Hypoxia 06/01/2024 CHF exacerbation 06/01/2024 NSTEMI (non-ST elevated myocardial infarction) 0 06/01/2024 QT prolongation 06/01/2024 Cardiomyopathy 06/01/2024 Elevated TSH 12/24/2008 DDD (degenerative disc disease), lumbar 10/18/19 09 Radicular pain 07/02/2008 Iron deficiency anemia Overview (08/28/2020): Anxiety PUD Hyperlipidemia Encounters Date Type Department Care Team Description 10/02/2024 External Device Data STL ABSTRACTION Provider, Abstract 09/20/2024 External Device Data STL ABSTRACTION Provider, Abstract 09/20/2024 External Device Data STL ABSTRACTION Provider, Abstract 09/04/2024 External Device Data ST[facility] ABSTRACTION Provider, Abstract 08/28/2024 External Device Data STL ABSTRACTION Provider, Abstract from Last 3 Months Family History Medical History Relation Name Comments Cancer Father Cancer Mother Heart Disease Mother Relation Name Status Comments Father Mother Social History Tobacco Use Types Packs/Day Years Used Date Smoking Tobacco: Never Alcohol Use Standard Drinks/Week Comments Yes 0 (1 standard drink = 0.6 oz pur e alcohol) Feeling Safe Answer Date Recorded Are you in a relationship wi th someone who hurts you emotionally and/or physically? No 06/02/2024 Food Insecurity Answer Date Recorded Patient needs follow up regardin 08/28/2024 Transportation Needs Answer Date Record ed Patient needs follow up regardin 08/28/2024 Housing Stability Answer Date Recorded Social/Environmental Concerns No concerns Utility Needs Answer Date Recorded Patient needs follow up regardin 08/28/2024 Comments No Sex and Gender Information Value Date Recorded Sex Assigned at Not on file Legal Sex Female 9:17 AM FINANCIAL SPECIALIST Gender Identity Not on file Sexual Orientation Not on file Last Filed Vital Signs Vital Sign Reading Time Taken Comments Blood Pressure 99/66 06/07/2024 12:07 PM FINANCIAL SPECIALIST Pulse 81 06/07/2024 12:07 PM FINANCIAL SPECIALIST Temperature 36 C (96.8 F) 06/07/2024 12:07 PM FINANCIAL SPECIALIST Respiratory Rate 16 06/07/2024 12:0 7 PM FINANCIAL SPECIALIST Oxygen Saturation 100% 06/07/2024 12: 07 PM FINANCIAL SPECIALIST Inhaled Oxygen Concentration - - Weight 46.6 kg (102 lb 12.8 oz) 06/07/2024 5:30 AM FINANCIAL SPECIALIST Height 152.4 cm (5') 06/02/2024 4:36 AM FINANCIAL SPECIALIST Body Mass Index 20.08 06/02/2024 4:36 AM FINANCIAL SPECIALIST Plan of Treatment Health Maintenance Due Date Last Done Comments DTAP/TDAP/TD VACCINES (1 - Tdap) 1980 HPV/Cotest (21-29) 1982 CERVICAL CANCER SCREENING 1991 HPV/Cotest (30-65) 1991 PAP SMEAR 1991 COLORECTAL SCREENING 2006 Colorectal Cancer Screening 2006 FIT-DNA Q 3 years 2006 FIT/FOBT Q 1 year 2006 Flex Sig/CT Colonography Q 5 years 2006 BREAST CANCER SCREENING 02/14/2009 02/15/20 08, 02/15/2008, 02/15/2008 ZOSTER VACCINE (1 of 2) 2011 INFLUENZA VACCINE (#1) 2023 RSV VACCINE (60+ [...] FINAL - See Scanned Document Procedure Note CONVERSION, AUTO DATA - 07/15/2022 FINAL - See Scanned Document us Oleg Hamilton MD MAMMO ORDERABLES Final Res ult from Last 3 Months or Most Recently Relevant to Health Maintenance Insurance MEDICAID [place] Advance Directives For more information, please contact: [phone] * Full Code (Latest Code Status on File) Date Activated Date Inactivated Comments 06/02/2024 12:29 AM 06/07/2024 6:10 PM * Full Code Date Activated Date Inactivated Comments 06/01/2024 1:58 AM 06/01/2024 11:50 PM Care Teams Commodity Broker Relationship Specialty Start Date End Date Thanh Meyer MD [address] [place] [address] PCP - General Family Practice 07/13/23
--- OUTSIDE RECORDS SUMMARY | 2024-10-24 17:19 | XMS_ITS | Encounter Summary ---
Author Organization [facility] Address [address] [place] [address] Care Team Providers Care Receiving Lead Name Role Phone Oleg Hamilton MD Primary Care Provider +1- [phone] Encounter Details Date Type Department Care Team (Late st Contact Info) Description 08/22/2007 Outpatient Historical [facility] [address] [place] [phone] Sidney Cortés MD NO ADDRESS ON FILE Social History Tobacco Use Types Packs/Day Years Used Date Smoking Tobacco: Never Assessed Comments Unknown Sex and Gender Information Value Date Recorded Sex Assigned at Not on file Legal Sex Female 5:17 AM JOB TRAINER Gender Identity Not on file Sexual Orientation Not on file documented as of this encounter Plan of Treatment Not on file documented as of this encounter Visit Diagnoses Not on filedocumented in this encounter Care Teams Receiving Lead Relationship Specialty Start Date End Date Oleg Hamilton MD PCP - General 06/04/04 documented as of this encounter
--- OUTSIDE RECORDS SUMMARY | 2024-10-24 17:19 | XMS_ITS | Encounter Summary ---
Author Organization [facility] Address [address] [place] [address] Care Team Providers Care Swine Genetics Researcher Name Role Phone Oleg Hamilton MD Primary Care Provider +1- [phone] Encounter Details Date Type Department Care Team (Late st Contact Info) Description 02/01/2007 Outpatient Historical [facility] [place] [address] [address] [place] [phone] Social History Tobacco Use Types Packs/Day Years Used Date Smoking Tobacco: Never Assessed Comments Unknown Sex and Gender Information Value Date Recorded Sex Assigned at Not on file Legal Sex Female 5:17 AM STEM TEACHER Gender Identity Not on file Sexual Orientation Not on file documented as of this encounter Plan of Treatment Not on file documented as of this encounter Visit Diagnoses Not on filedocumented in this encounter Care Teams Swine Genetics Researcher Relationship Specialty Start Date End Date Oleg Hamilton MD PCP - General 06/04/04 documented as of this encounter
--- OUTSIDE RECORDS SUMMARY | 2024-10-24 17:19 | XMS_ITS | Encounter Summary ---
Author Organization [facility] Address [address] [place] [address] Care Team Providers Care Composite Boat Builder Name Role Phone Oleg Hamilton MD Primary Care Provider +1- [phone] Encounter Details Date Type Department Care Team (Latest Contact Info) Description 09/09/2007 Outpatient Historical [facility] Chronic Pain [address] [place] [address] Sidney Cortés MD NO ADDRESS ON FILE Degeneration of Lumbar or Lumbosacral Intervertebral Disc Social History Tobacco Use Types Packs/Day Years Used Date Smoking Tobacco: Never Assessed Comments Unknown Sex and Gender Information Value Date Recorded Sex Assigned at Not on file Legal Sex Female 5:17 AM ROBOTIC MAINTENANCE TECHNICIAN Gender Identity Not on file Sexual Orientation Not on file documented as of this encounter Plan of Treatment Not on file documented as of this encounter Visit Diagnoses Diagnosis Degeneration of lumbar or lumbosacral intervertebral disc documented in this encounter Care Teams Composite Boat Builder Relationship Specialty Start Date End Date Oleg Hamilton MD PCP - General 06/04/04 documented as of this encounter
--- OUTSIDE RECORDS SUMMARY | 2024-10-24 17:19 | XMS_ITS | Encounter Summary ---
Author Organization [facility] Address [address] [place] [address] Care Team Providers Care Triage Clinician Name Role Phone Oleg Hamilton MD Primary Care Provider +1- [phone] Encounter Details Date Type Department Care Team (Latest Contact Info) Description 01/16/2007 Outpatient [facility] [place] [address] [phone] Sidney Cortés MD NO ADDRESS ON FILE Other Physical Therapy (Primary Dx) Social History Tobacco Use Types Packs/Day Years Used Date Smoking Tobacco: Never Assessed Comments Unknown Sex and Gender Information Value Date Recorded Sex Assigned at Not on file Legal Sex Female 5:17 AM COLOR SPRAYER Gender Identity Not on file Sexual Orientation Not on file documented as of this encounter Plan of Treatment Not on file documented as of this encounter Visit Diagnoses Diagnosis Other physical therapy- Primary documented in this encounter Care Teams Triage Clinician Relationship Specialty Start Date End Date Oleg Hamilton MD PCP - General 06/04/04 documented as of this encounter
--- OUTSIDE RECORDS SUMMARY | 2024-10-24 17:19 | XMS_ITS | Encounter Summary ---
Author Organization [facility] Address [address] [place] [address] Care Team Providers Care Clinical Resource Manager Name Role Phone Oleg Hamilton MD Primary Care Provider +1- [phone] Encounter Details Date Type Department Care Team (Latest Contact Info) Description 02/01/2007 Outpatient Historical [facility] Imaging Services Mirtha [place] [address] [address] Sidney Cortés MD NO ADDRESS ON FILE Degeneration of Lumbar or Lumbosacral Intervertebral Disc (Primary Dx) Social History Tobacco Use Types Packs/Day Years Used Date Smoking Tobacco: Never Assessed Comments Unknown Sex and Gender Information Value Date Recorded Sex Assigned at Not on file Legal Sex Female 5:17 AM HUC Gender Identity Not on file Sexual Orientation Not on file documented as of this encounter Plan of Treatment Not on file documented as of this encounter Procedures Procedure Name Priority Date/Time Associated Diagnosis Comments MRI LUMBAR WO CONTRAST Routine 02/01/2007 12:01 AM CDT documented in this encounter Results * MRI LUMBAR WO CONTRAST (02/01/2007 12:01 AM CDT) Anatomical Region Laterality Modality Spine Other 02/01/2007 12:0 1 AM CDT Narrative 02/01/2007 12:01 AM CDT History: Degenerative disc disease, low back pain and pain in both legs, more so on the right. Multiplanar imaging of the lumbar spine was performed without IV gadolinium. Correlation is made with CT from 10/22/2004. Multiple bony lesions are present which are high signal on T1 and T2. The lesion at L2 is also highsignal on STIR and to a lesser extent in L3. This is most likely represents an atypical appearanceof a hemangioma. No acute fracture or subluxation is seen. Conus is intact. L1-L2 through L3-L4: Unremarkable. L4-L5: A small right foraminal disc protrusion is present which appears to touch the exiting right Y7uaara root. L5-S1: There is a tiny disc bulge and a posterior annular tear. Impression: 1. Right foraminal disc protrusion at L4-5 which appears to touch the right L4 nerve root. 2. Posterior annular tear at L5-S1. - Dictated By: Adama Salgado M.D. Electronically Signed By: Adama Salgado M.D. Date Signed: 02/02/07 Procedure Note 03/23/2009 History: Degenerative disc disease, low back pain and pain in both legs, more so onthe right. Multiplanar imaging of the lumbar spine was performed without IVgadolinium. Correlation is made with CT from 10/22/2004. Multiple bony lesions are present which are high signal on T1 and T2. Thelesion at L2 is also highsignal on STIR and to a lesser extent in L3. This is most likely represents anatypical appearanceof a hemangioma. No acute fracture or subluxation is seen. Conus is intact. L1-L2 through L3-L4: Unremarkable. L4-L5: A small right foraminal disc protrusion is present which appears to touchthe exiting right F0vmydq root. L5-S1: There is a tiny disc bulge and a posterior annular tear. Impression: 1. Right foraminal disc protrusion at L4-5 which appears to touch theright L4 nerve root. 2. Posterior annular tear at L5-S1. - Dictated By: Adama Salgado M.D. Electronically Signed By: Adama Salgado M.D. Date Signed: 02/02/07 us Sidney Cortés MD MR ORDERABLES Final Result documented in this encounter Visit Diagnoses Diagnosis Degeneration of lumbar or lumbosacral intervertebral disc- Primary documented in this encounter Care Teams Clinical Resource Manager Relationship Specialty Start Date End Date Oleg Hamilton MD PCP - General 06/04/04 documented as of this encounter
--- OUTSIDE RECORDS SUMMARY | 2024-10-24 17:19 | XMS_ITS | Encounter Summary ---
Author Organization [facility] Address [address] [place] [address] Care Team Providers Care Desk Manager Name Role Phone Oleg Hamilton MD Primary Care Provider +1- [phone] Encounter Details Date Type Department Care Team (Latest Contact Info) Description 07/09/2007 Outpatient Historical [facility] Chronic Pain [address] [place] [address] Sidney Cortés MD NO ADDRESS ON FILE Degeneration of Lumbar or Lumbosacral Intervertebral Disc; Other Pain Disorders Related to Psychological Factors Social History Tobacco Use Types Packs/Day Years Used Date Smoking Tobacco: Never Assessed Comments Unknown Sex and Gender Information Value Date Recorded Sex Assigned at Not on file Legal Sex Female 5:17 AM SHIRT OPERATOR Gender Identity Not on file Sexual Orientation Not on file documented as of this encounter Plan of Treatment Not on file documented as of this encounter Visit Diagnoses Diagnosis Degeneration of lumbar or lumbosacral intervertebral disc Other pain disorders related to psychological factors documented in this encounter Care Teams Desk Manager Relationship Specialty Start Date End Date Oleg Hamilton MD PCP - General 06/04/04 documented as of this encounter
--- OUTSIDE RECORDS SUMMARY | 2024-10-24 17:19 | XMS_ITS | Encounter Summary ---
Author Organization [facility] Address [address] [place] [address] Care Team Providers Care Medical Director Of Hospice Name Role Phone Oleg Hamilton MD Primary Care Provider +1- [phone] Encounter Details Date Type Department Care Team (Late st Contact Info) Description 09/26/2007 Outpatient [facility] [address] [place] [address] Social History Tobacco Use Types Packs/Day Years Used Date Smoking Tobacco: Never Assessed Comments Unknown Sex and Gender Information Value Date Recorded Sex Assigned at Not on file Legal Sex Female 5:17 AM SDET Gender Identity Not on file Sexual Orientation Not on file documented as of this encounter Plan of Treatment Not on file documented as of this encounter Visit Diagnoses Not on filedocumented in this encounter Care Teams Medical Director Of Hospice Relationship Specialty Start Date End Date Oleg Hamilton MD PCP - General 06/04/04 documented as of this encounter
--- OUTSIDE RECORDS SUMMARY | 2024-10-24 17:19 | XMS_ITS | Encounter Summary ---
Author Organization [facility] Address [address] [place] [address] Care Team Providers Care Continuous Drier Helper Name Role Phone Oleg Hamilton MD Primary Care Provider +1- [phone] Encounter Details Date Type Department Care Team (Late st Contact Info) Description 06/08/2007 Outpatient Historical [facility] [address] [place] [address] Other, [facility] NO ADDRESS ON FILE Social History Tobacco Use Types Packs/Day Years Used Date Smoking Tobacco: Never Assessed Comments Unknown Sex and Gender Information Value Date Recorded Sex Assigned at Not on file Legal Sex Female 5:17 AM DONOR RECRUITMENT MANAGER Gender Identity Not on file Sexual Orientation Not on file documented as of this encounter Plan of Treatment Not on file documented as of this encounter Visit Diagnoses Not on filedocumented in this encounter Care Teams Continuous Drier Helper Relationship Specialty Start Date End Date Oleg Hamilton MD PCP - General 06/04/04 documented as of this encounter
--- OUTSIDE RECORDS SUMMARY | 2024-10-24 17:19 | XMS_ITS | Encounter Summary ---
Author Organization [facility] Address [address] [place] [address] Care Team Providers Care Payroll Tax Specialist Name Role Phone Oleg Hamilton MD Primary Care Provider +1- [phone] Encounter Details Date Type Department Care Team (Late st Contact Info) Description 06/07/2007 Outpatient Historical [facility] Cancer and Hematology [address] [facility] [address] [place] [address] Maggie Dorsey MD [address] [place] [phone] Social History Tobacco Use Types Packs/Day Years Used Date Smoking Tobacco: Never Assessed Comments Unknown Sex and Gender Information Value Date Recorded Sex Assigned at Not on file Legal Sex Female 5:17 AM PROCESS TRAINER Gender Identity Not on file Sexual Orientation Not on file documented as of this encounter Plan of Treatment Not on file documented as of this encounter Visit Diagnoses Not on filedocumented in this encounter Care Teams Payroll Tax Specialist Relationship Specialty Start Date End Date Oleg Hamilton MD PCP - General 06/04/04 documented as of this encounter
--- OUTSIDE RECORDS SUMMARY | 2024-10-24 17:20 | XMS_ITS | Encounter Summary ---
Author Organization [facility] Address [address] [place] [address] Care Team Providers Care Power Station Operator Name Role Phone Oleg Hamilton MD Primary Care Provider +1- [phone] Encounter Details Date Type Department Care Team (Late st Contact Info) Description 05/16/2007 Outpatient [facility] [address] [place] [address] Social History Tobacco Use Types Packs/Day Years Used Date Smoking Tobacco: Never Assessed Comments Unknown Sex and Gender Information Value Date Recorded Sex Assigned at Not on file Legal Sex Female 5:17 AM BREAKFAST ATTENDANT Gender Identity Not on file Sexual Orientation Not on file documented as of this encounter Plan of Treatment Not on file documented as of this encounter Visit Diagnoses Not on filedocumented in this encounter Care Teams Power Station Operator Relationship Specialty Start Date End Date Oleg Hamilton MD PCP - General 06/04/04 documented as of this encounter
--- OUTSIDE RECORDS SUMMARY | 2024-10-24 17:20 | XMS_ITS | Encounter Summary ---
Author Organization [facility] Address [address] [place] [address] Care Team Providers Care Trim Operator Name Role Phone Oleg Hamilton MD Primary Care Provider +1- [phone] Encounter Details Date Type Department Care Team (Late st Contact Info) Description 05/30/2007 Outpatient [facility] [address] [place] [phone] Sidney Cortés MD NO ADDRESS ON FILE Social History Tobacco Use Types Packs/Day Years Used Date Smoking Tobacco: Never Assessed Comments Unknown Sex and Gender Information Value Date Recorded Sex Assigned at Not on file Legal Sex Female 5:17 AM CROWN ATTACHER Gender Identity Not on file Sexual Orientation Not on file documented as of this encounter Plan of Treatment Not on file documented as of this encounter Visit Diagnoses Not on filedocumented in this encounter Care Teams Trim Operator Relationship Specialty Start Date End Date Oleg Hamilton MD PCP - General 06/04/04 documented as of this encounter
--- OUTSIDE RECORDS SUMMARY | 2024-10-24 17:20 | XMS_ITS | Encounter Summary ---
Author Organization [facility] Address [address] [place] [address] Care Team Providers Care Tobacco Blender Name Role Phone Oleg Hamilton MD Primary Care Provider +1- [phone] Encounter Details Date Type Department Care Team (Latest Contact Info) Description 05/03/2007 Outpatient Historical [facility] Chronic Pain [address] [place] [address] Sidney Cortés MD NO ADDRESS ON FILE Degeneration of Lumbar or Lumbosacral Intervertebral Disc Social History Tobacco Use Types Packs/Day Years Used Date Smoking Tobacco: Never Assessed Comments Unknown Sex and Gender Information Value Date Recorded Sex Assigned at Not on file Legal Sex Female 5:17 AM PUBLISHING MANAGER Gender Identity Not on file Sexual Orientation Not on file documented as of this encounter Plan of Treatment Not on file documented as of this encounter Visit Diagnoses Diagnosis Degeneration of lumbar or lumbosacral intervertebral disc documented in this encounter Care Teams Tobacco Blender Relationship Specialty Start Date End Date Oleg Hamilton MD PCP - General 06/04/04 documented as of this encounter
--- OUTSIDE RECORDS SUMMARY | 2024-10-24 17:20 | XMS_ITS | Encounter Summary ---
Author Organization [facility] Address [address] [place] [address] Care Team Providers Care Sales Audit Clerk Name Role Phone Oleg Hamilton MD Primary Care Provider +1- [phone] Encounter Details Date Type Department Care Team (Late st Contact Info) Description 04/26/2007 Outpatient Historical [facility] [place] [address] [place] [phone] Shashi Ag MD [address] [facility] [address] [place] [address] Social History Tobacco Use Types Packs/Day Years Used Date Smoking Tobacco: Never Assessed Comments Unknown Sex and Gender Information Value Date Recorded Sex Assigned at Not on file Legal Sex Female 5:17 AM TIE MILL OPERATOR Gender Identity Not on file Sexual Orientation Not on file documented as of this encounter Plan of Treatment Not on file documented as of this encounter Visit Diagnoses Not on filedocumented in this encounter Care Teams Sales Audit Clerk Relationship Specialty Start Date End Date Oleg Hamilton MD PCP - General 06/04/04 documented as of this encounter
--- OUTSIDE RECORDS SUMMARY | 2024-10-24 17:20 | XMS_ITS | Encounter Summary ---
Author Organization [facility] Address [address] [place] [address] Care Team Providers Care Bookkeeping Machine Operator Name Role Phone Oleg Hamilton MD Primary Care Provider +1- [phone] Encounter Details Date Type Department Care Team (Late st Contact Info) Description 04/27/2007 Outpatient [facility] [address] [place] [id number] Sidney Cortés MD NO ADDRESS ON FILE Social History Tobacco Use Types Packs/Day Years Used Date Smoking Tobacco: Never Assessed Comments Unknown Sex and Gender Information Value Date Recorded Sex Assigned at Not on file Legal Sex Female 5:17 AM FAMILY SERVICES MANAGER Gender Identity Not on file Sexual Orientation Not on file documented as of this encounter Plan of Treatment Not on file documented as of this encounter Visit Diagnoses Not on filedocumented in this encounter Care Teams Bookkeeping Machine Operator Relationship Specialty Start Date End Date Oleg Hamilton MD PCP - General 06/04/04 documented as of this encounter
--- OUTSIDE RECORDS SUMMARY | 2024-10-24 17:20 | XMS_ITS | Encounter Summary ---
Author Organization [facility] Address [address] [place] [address] Care Team Providers Care Interlocking And Signal Mechanic Name Role Phone Oleg Hamilton MD Primary Care Provider +1- [phone] Encounter Details Date Type Department Care Team (Late st Contact Info) Description 05/10/2007 Outpatient Historical [facility] Cancer and Hematology [address] [place] [address] Maggie Dorsey MD [address] [place] [address] Social History Tobacco Use Types Packs/Day Years Used Date Smoking Tobacco: Never Assessed Comments Unknown Sex and Gender Information Value Date Recorded Sex Assigned at Not on file Legal Sex Female 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
--- OUTSIDE RECORDS SUMMARY | 2024-10-24 17:20 | XMS_ITS | Patient Health Record ---
Author Organization [facility] Address [address] [place], [place] [address] Care Team Providers Care Internet Sales Manager Name Role Phone Nemesio Seth MD Primary Care Provider Mendel Simpson MD, Ace Unavailable [phone] Reason For Referral No Information Medications Medication SIG (Take, Route, Frequency, Duration) Notes Start Date End Date Status omeprazole 40 mg 1 cap orally once a day Active estradiol 0.5 mg 1 tab orally once a day Active Compazine Active loratadine 10 mg 1 tab orally once a day Active celecoxib 200 mg 1 cap orally 2 times a day Active prochlorperazine 10 mg 1 tab orally every 6 hours Active Colace sodium 100 mg 1 cap orally 2 times a day Active clobetasol topical 0.05% 1 allison applied t opically 2 times a day Active tiZANidine 4 mg 1 tab po orally TID prn spasm Active Senexon-S 50 mg-8.6 mg 2 tab orally twice a day Active DULoxetine 30 mg 1 cap po orally Q24H Active ondansetron 8 mg 1 tab orally 3 times a day Active Hysingla ER 20 mg 1 tab po orally Q24H Active buPROPion 200 mg/12 hours 1 tab orally 2 times a day Active oxyCODONE 5 mg 1 tab po orally Q8H prn breakthrough pain Active amitriptyline 75 mg 1 tab orally once a day (at bedtime) Active naproxen sodium 220 mg 1 cap orally ever y 12 hours Active Social History Tobacco Use: Social History Observation Description Date Details (start date - stop date) Never Smoker NA - NA alcohol Question Answer Notes Did you have a drink contain ing alcohol in the past year? Yes How often did you have a dri nk containing alcohol in the past year? Monthly or less (1 point) How many drinks did you have on a typical day when you were drinking in the past year? 1 or 2 (0 points) How often did you have six o r more drinks on one occasion in the past year? Never (0 points) Points 1 Interpretation Negative Tobacco use: Question Answer Notes : nonsmoker Problems Problem Type SNOMED Code ICD Code Onset Dates Problem Status W/U Status Risk Notes Problem Solitary sacroiliitis (931039631) Sacroiliitis, not elsewhere classified (M46.1) Active confirmed Problem Low back pain (001986056) Low back pain (M54.5) Active confirmed Problem Lumbosacral spondylosis without myelopathy (89126371) Spondylosis without myelopathy or radiculopathy, lumbar region (M47.816) Active confirmed Problem High risk drug monitoring status (509255984) senior care (current) use of opiate analgesic (Z79.891) Active confirmed Problem Sleep disorder (82669128) Other sleep disorders (G47.8) Active confirmed Problem Radiculopathy due to lumbar intervertebral disc disorder (670591797620750) Intervertebral disc disorders with radiculopathy, lumbar region (M51.16) Active confirmed Problem Long-term current use of drug therapy (277039066) Other filler leaf cutter long (current) drug therapy (Z79.899) Active confirmed Problem Spinal stenosis of lumbar region (97089363) Spinal stenosis, lumbar region without neurogenic claudication (M48.061) Active confirmed Plan Of Treatment No Information Insurance Providers Payer Name Payer Address Payer Phone Subscriber Number Group Number Insured Name Patient Relationship to Insured Coverage Start Date Coverage End Date [place] [address] [place] [address] [id number] Preeti Grady Self - patient is the insured Medical (General) History Medical History History ICD Code Chronic back pain Left flank pain Anemia of chronic disease Fibromyalgia Osteoporosis Osteoarthritis Depression and anxiety Degenerative back disease Surgical History Surgery Date(Month/Year) Appendectomy Partial resection of colon Breast reduction surgery, performed in [place], [place], 1991 Rhinoplasty, performed in [place], [place], [address] Right knee surgery, performed in [place], 1996 Hysterectomy, performed in [place], [place], 1 999 Removal of lump, right breast Cholecystectomy 2004 Repair of right eye, performed in [place], [place], 2014 Hospitalization History Reason Date(Month/Year) P[place] [facility] [place] Bowel blockage, [place] in [place] Back pain, [place] in [place]
--- OUTSIDE RECORDS SUMMARY | 2024-10-24 17:20 | XMS_ITS | Encounter Summary ---
Author Organization [facility] Address [address] [place] [address] Care Team Providers Care Mortgage Loan Originator Name Role Phone Oleg Hamilton MD Primary Care Provider +1- [phone] Encounter Details Date Type Department Care Team (Late st Contact Info) Description 04/19/2007 Outpatient [facility] [address] [place] [phone] Sidney Cortés MD NO ADDRESS ON FILE Social History Tobacco Use Types Packs/Day Years Used Date Smoking Tobacco: Never Assessed Comments Unknown Sex and Gender Information Value Date Recorded Sex Assigned at Not on file Legal Sex Female 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
--- OUTSIDE RECORDS SUMMARY | 2024-10-24 17:20 | XMS_ITS | Encounter Summary ---
Author Organization [facility] Address [address] [place] [address] Care Team Providers Care Off Track Betting Manager Name Role Phone Oleg Hamilton MD Primary Care Provider +1- [phone] Encounter Details Date Type Department Care Team (Latest Contact Info) Description 03/21/2007 Outpatient Historical [facility] [address] [place] [address] Sidney Cortés MD NO ADDRESS ON FILE Lumbar Disc Displacement (Primary Dx); Lumbago; Thoracic or Lumbosacral Neuritis or Radiculitis, Unspecified Social History Tobacco Use Types Packs/Day Years Used Date Smoking Tobacco: Never Assessed Comments Unknown Sex and Gender Information Value Date Recorded Sex Assigned at Not on file Legal Sex Female 5:17 AM DRUG CLERK Gender Identity Not on file Sexual Orientation Not on file documented as of this encounter Plan of Treatment Not on file documented as of this encounter Visit Diagnoses Diagnosis Lumbar disc displacement- Primary Displacement of lumbar intervertebral disc without myelopathy Lumbago Thoracic or lumbosacral neuritis or radiculitis, unspecified documented in this encounter Care Teams Off Track Betting Manager Relationship Specialty Start Date End Date Oleg aHmilton MD PCP - General 06/04/04 documented as of this encounter
--- OUTSIDE RECORDS SUMMARY | 2024-10-24 17:20 | XMS_ITS | Encounter Summary ---
Author Organization [facility] Address [address] [place] [address] Care Team Providers Care Film Library Clerk Name Role Phone Oleg Hamilton MD Primary Care Provider +1- [phone] Encounter Details Date Type Department Care Team (Late st Contact Info) Description 05/08/2007 Outpatient Historical [facility] [place] [address] [place] [address] [address] Shashi Ag MD [address] [facility] [address] [place] [address] Social History Tobacco Use Types Packs/Day Years Used Date Smoking Tobacco: Never Assessed Comments Unknown Sex and Gender Information Value Date Recorded Sex Assigned at Not on file Legal Sex Female 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
--- OUTSIDE RECORDS SUMMARY | 2024-10-24 17:20 | XMS_ITS | Encounter Summary ---
Author Organization [facility] Address [address] [place] [address] Care Team Providers Care Dietetics Teacher Name Role Phone Oleg Hamilton MD Primary Care Provider +1- [phone] Encounter Details Date Type Department Care Team (Late st Contact Info) Description 02/20/2009 Ancillary Orders 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 Gender Identity Not on file Sexual Orientation Not on file documented as of this encounter Plan of Treatment Scheduled Orders Name Type Priority Associated Diagnoses Orde r Schedule XR FLUORO NEEDLE GUIDANCE Imaging Routine Lumbosacral Spondylosis without Myelopathy 1 Occurrences starting 02/20/2009 until 02/20/2010 documented as of this encounter Results * XR FLUORO NEEDLE GUIDANCE (02/20/2009 8:23 AM CDT) us Sidney Cortés MD DIAGNOSTIC IMAGING ORDERABLES Final Result documented in this encounter Visit Diagnoses Diagnosis Lumbosacral spondylosis without myelopathy documented in this encounter Care Teams Dietetics Teacher Relationship Specialty Start Date End Date Oleg Hamilton MD PCP - General 06/04/04 documented as of this encounter
--- OUTSIDE RECORDS SUMMARY | 2024-10-24 17:20 | XMS_ITS | Encounter Summary ---
Author Organization [facility] Address [address] [place] [address] Care Team Providers Care Skates Operator Name Role Phone Oleg Hamilton MD Primary Care Provider +1- [phone] Encounter Details Date Type Department Care Team (Late st Contact Info) Description 04/20/2007 Outpatient Historical [facility] Cancer and Hematology [address] [place] [address] Maggie Dorsey MD [address] [place] [phone] Social History Tobacco Use Types Packs/Day Years Used Date Smoking Tobacco: Never Assessed Comments Unknown Sex and Gender Information Value Date Recorded Sex Assigned at Not on file Legal Sex Female 5:17 AM TECHNICAL SERVICES LIBRARIAN Gender Identity Not on file Sexual Orientation Not on file documented as of this encounter Plan of Treatment Not on file documented as of this encounter Visit Diagnoses Not on filedocumented in this encounter Care Teams Skates Operator Relationship Specialty Start Date End Date Oleg Hamilton MD PCP - General 06/04/04 documented as of this encounter
--- OUTSIDE RECORDS SUMMARY | 2024-10-24 17:20 | XMS_ITS | Encounter Summary ---
Author Organization [facility] Address [address] [place] [address] Care Team Providers Care Abrasive Grader Name Role Phone Oleg Hamilton MD Primary Care Provider +1- [phone] Encounter Details Date Type Department Care Team (Late st Contact Info) Description 05/22/2007 Outpatient Historical [facility] Dermatology- [address] [place] [id number] Travis Giles MD [address] [place] [address] Social History Tobacco Use Types Packs/Day Years Used Date Smoking Tobacco: Never Assessed Comments Unknown Sex and Gender Information Value Date Recorded Sex Assigned at Not on file Legal Sex Female 5:17 AM CARD PLACER Gender Identity Not on file Sexual Orientation Not on file documented as of this encounter Plan of Treatment Not on file documented as of this encounter Visit Diagnoses Not on filedocumented in this encounter Care Teams Abrasive Grader Relationship Specialty Start Date End Date Oleg Hamilton MD PCP - General 06/04/04 documented as of this encounter
--- OUTSIDE RECORDS SUMMARY | 2024-10-24 17:20 | XMS_ITS | Encounter Summary ---
Author Organization [facility] Address [address] [place] [address] Care Team Providers Care Shoe Repairman Name Role Phone Oleg Hamilton MD Primary Care Provider +1- [phone] Encounter Details Date Type Department Care Team (Late st Contact Info) Description 05/09/2007 Outpatient [facility] [address] [place] [address] Social History Tobacco Use Types Packs/Day Years Used Date Smoking Tobacco: Never Assessed Comments Unknown Sex and Gender Information Value Date Recorded Sex Assigned at Not on file Legal Sex Female 5:17 AM OPHTHALMIC TECHNOLOGIST Gender Identity Not on file Sexual Orientation Not on file documented as of this encounter Plan of Treatment Not on file documented as of this encounter Visit Diagnoses Not on filedocumented in this encounter Care Teams Shoe Repairman Relationship Specialty Start Date End Date Oleg Hamilton MD PCP - General 06/04/04 documented as of this encounter
--- OUTSIDE RECORDS SUMMARY | 2024-10-24 17:20 | XMS_ITS | Encounter Summary ---
Author Organization [facility] Address [address] [place] [address] Care Team Providers Care Marketing Regional Consultant Name Role Phone Oleg Hamilton MD Primary Care Provider +1- [phone] Encounter Details Date Type Department Care Team (Latest Contact Info) Description 03/21/2007 Outpatient Historical [facility] Procedures [address] [place] [address] Sidney Cortés MD NO ADDRESS ON FILE Lumbago (Primary Dx) Social History Tobacco Use Types Packs/Day Years Used Date Smoking Tobacco: Never Assessed Comments Unknown Sex and Gender Information Value Date Recorded Sex Assigned at Not on file Legal Sex Female 5:17 AM TECHNICIAN INVENTORY SPECIALIST Gender Identity Not on file Sexual Orientation Not on file documented as of this encounter Plan of Treatment Not on file documented as of this encounter Visit Diagnoses Diagnosis Lumbago- Primary documented in this encounter Care Teams Marketing Regional Consultant Relationship Specialty Start Date End Date Oleg Hamilton MD PCP - General 06/04/04 documented as of this encounter
--- OUTSIDE RECORDS SUMMARY | 2024-10-24 17:20 | XMS_ITS | Encounter Summary ---
Author Organization [facility] Address [address] [place] [address] Care Team Providers Care Area Counselor Name Role Phone Oleg Hamilton MD Primary Care Provider +1- [phone] Encounter Details Date Type Department Care Team (Late st Contact Info) Description 05/24/2007 Outpatient Historical [facility] Cancer and Hematology [address] [place] [address] Maggie Dorsey MD [address] [place] [phone] Social History Tobacco Use Types Packs/Day Years Used Date Smoking Tobacco: Never Assessed Comments Unknown Sex and Gender Information Value Date Recorded Sex Assigned at Not on file Legal Sex Female 5:17 AM INFORMATION RESOURCES DIRECTOR Gender Identity Not on file Sexual Orientation Not on file documented as of this encounter Plan of Treatment Not on file documented as of this encounter Visit Diagnoses Not on filedocumented in this encounter Care Teams Area Counselor Relationship Specialty Start Date End Date Oleg Hamilton MD PCP - General 06/04/04 documented as of this encounter
--- NOTE | 2024-10-24 17:26 | W.ED.GENADLT ---
Documented by User: Jasmina Novoa MD 10/24/24 17:38 HPI - General Adult General: Chief complaint: General Medical Stated complaint: ONC sent for low BP Time Seen by Provider: 10/24/24 17:24 History of Present Illness: 64-year-old female with a history of iron deficiency anemia who receives interval iron infusions at the infusion center, diverticulosis, depression, fibromyalgia who presents to the emergency room after being persistently hypotensive after an iron infusion today. She says she feels somewhat dizzy. She says she has not felt great recently just some mild malaise. No cough. No fever. No abdominal pain. No nausea or vomiting. Says she often gets hypotensive after an infusion but it usually improves. She received 1.5 L normal saline in the infusion center and still did not improve and arrives here with a pressure of 71/36. She is alert and oriented. She says just a little lightheaded when she tries to stand up. They stop giving fluid because they are afraid of fluid overload given she has a reduced EF. Related Data Home Medications ?Medication ?Instructions ?Recorded ?Confirmed montelukast 10 mg tablet 10 mg PO DAILY@20 07/19/19 10/15/24 (Singulair) tizanidine 4 mg tablet 4 mg PO Q8H PRN Muscle Spasm 10/15/19 10/15/24 mupirocin 2 % topical ointment 1 applic topical BID PRN Rash 02/15/22 10/15/24 pantoprazole 40 mg tablet,delayed 40 mg PO DAILY 02/15/22 10/15/24 release loratadine 10 mg tablet (Claritin) 10 mg PO DAILY@08 PRN Allergy 06/23/22 10/15/24 Symptoms bupropion HCl 200 mg tablet,12 hr 200 mg PO BID PRN Anxiety 10/27/22 10/15/24 sustained-release (Wellbutrin SR) diphenhydramine HCl 25 mg capsule 50 mg PO DAILY 12/22/22 10/15/24 (Banophen) lisinopril 2.5 mg tablet 2.5 mg PO DAILY 12/22/22 10/15/24 metoprolol succinate 25 mg 25 mg PO DAILY 12/22/22 10/15/24 tablet,extended release 24 hr potassium chloride 20 mEq 40 meq PO BID 12/22/22 10/15/24 tablet,extended release buprenorphine 8 mg-naloxone 2 mg 1 film sublingual DAILY PRN Pain 12/29/22 10/15/24 sublingual film (Suboxone) duloxetine 60 mg capsule,delayed 90 mg PO DAILY 05/11/23 10/15/24 release (Cymbalta) prochlorperazine maleate 10 mg 10 mg PO Q8H PRN Nausea And 06/06/23 10/15/24 tablet Vomiting meloxicam 15 mg tablet mg PO 01/12/24 10/15/24 furosemide 20 mg tablet mg PO 02/01/24 10/15/24 glucosam 500 mg-chondroit 66.7 tab PO 06/21/24 10/15/24 mg-msm 500 mg-boron 2 mg-hyaluro tablet Previous Rx's ?Medication ?Instructions ?Recorded amitriptyline 50 mg tablet 50 mg PO .HS #30 tabs 06/23/21 magnesium L-lactate 84 mg 84 mg PO BID #180 tabs 11/12/22 tablet,extended release ondansetron 8 mg disintegrating 8 mg PO Q8H PRN nausea and 06/30/23 tablet vomiting #30 tabs spironolactone 25 mg tablet 12.5 mg (1/2 x 25 mg) PO DAILY #90 06/22/24 tabs Allergies Allergy/AdvReac Type Severity Reaction Status Date / Time No Known Allergies Allergy Verified 10/24/24 17:21 Review of Systems Narrative: Constitutional symptoms: Negative except as documented in HPI. Skin symptoms: Negative except as documented in HPI. Eye symptoms: Negative except as documented in HPI. ENMT symptoms: Negative except as documented in HPI. Respiratory symptoms: Negative except as documented in HPI. Cardiovascular symptoms: Negative except as documented in HPI. Gastrointestinal symptoms: Negative except as documented in HPI. Genitourinary symptoms: Negative except as documented in HPI. Musculoskeletal symptoms: Negative except as documented in HPI. Neurologic symptoms: Negative except as documented in HPI. Psychiatric symptoms: Negative except as documented in HPI. Endocrine symptoms: Negative except as documented in HPI. 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, recurrent, mild Surgical History History of hernia surgery (03/28/23) Laparoscopic repair of incisional hernias x 2 with mesh S/P LASIK surgery of both eyes History of tonsillectomy H/O right knee surgery H/O bilateral breast reduction surgery Hx of cholecystectomy H/O rhinoplasty Nasal fracture History of appendectomy Status post extracorporeal shock wave therapy URETERAL STENT PLACEMENT History of bone marrow biopsy H/O colonoscopy (10/14/20) Diverticulosis History of partial gastrectomy Secondary to peptic ulcer disease, perforated ulcer / partial transverse colectomy with reanastomosis ([place]) H/O: hysterectomy For fibroid and endometriosis / BSO Port-A-Cath in place Placed for transfusions for chronic anemia Family History Father , IN HIS 50'S No problems noted. Mother , AT AGE 78 Cancer OVARIAN Myocardial infarction Stroke Sister CAD (coronary artery disease) Other Hypertension Psychiatric illness Social History Smoking and tobacco/nicotine status: never used tobacco/nicotine Quit status (tobacco/nicotine): has quit using Year quit tobacco: 1980 Former quit date comment: smoked 6 years total Alcohol intake: current Alcohol intake frequency: holidays/special occasions only Substance/Drug Use: never Adopted: No Caregiver/support person: No Housing: House Marital status: Current occupational status: disabled Physical Exam Narrative: EXAM NARRATIVE: General: Alert, no acute distress. Skin: Warm, dry. Head: Normocephalic, atraumatic. Neck: Supple, trachea midline. Eye: Extraocular movements are intact. Ears, nose, mouth and throat: mucosa moist. Cardiovascular: Regular, Normal peripheral perfusion. Respiratory: Lungs are clear to auscultation, respirations are non-labored, breath sounds are equal, Symmetrical chest wall expansion. Gastrointestinal: Soft, Nontender, Non distended Musculoskeletal: Normal ROM, no deformity. Neurological: Alert and oriented, No focal neurological deficit observed. Psychiatric: Cooperative, appropriate mood & affect. Course Vital Signs: Vital signs: Vital Signs Temperature 98.2 F 10/24/24 23:47 Pulse Rate 52 L 10/25/24 00:26 Respiratory Rate 14 10/24/24 23:47 Blood Pressure 119/74 10/25/24 00:26 Pulse Oximetry 95 10/25/24 00:26 Oxygen Delivery Me thod Room Air 10/24/24 23:47 MDM - General Adult Medical Decision Making Patient care transitioned to Dr. Garibay at shift change. Patient arrived about 30 minutes before shift change. Lab Data 10/24/24 17:41 10/24/24 17:41 Laboratory Results WBC 5.75 10^3/uL (3.29-11.43) 10/24/24 17:41 RBC 2.84 10^6/uL (3.85-5.65) L 10/24/24 17:41 Hgb 7.60 g/dL (11.27-16.99) L 10/24/24 17:41 Hct 24.8 % (36-47) L 10/24/24 17:41 MCV 87.3 fl (85-98) 10/24/24 17:41 MCH 26.8 pg (27-33) L 10/24/24 17:41 MCHC 30.6 g/dL (30-55) 10/24/24 17:41 RDW 14.1 % (12.1-15.1) 10/24/24 17:41 Plt Count 274 10^3/cmm (157-399) 10/24/24 17:41 MPV 10.0 fL (7.4-10.4) 10/24/24 17:41 Neut % (Auto) 67.7 % 10/24/24 17:41 Lymph % (Auto) 17.2 % 10/24/24 17:41 Robertson % (Auto) 9.4 % 10/24/24 17:41 Eos % (Auto) 4.9 % 10/24/24 17:41 Baso % (Auto) 0.3 % 10/24/24 17:41 Neut # (Auto) 3.89 10^3/uL (1.8-7.7) 10/24/24 17:41 Lymph # (Auto) 1.0 10^3/uL (0.8-4.8) 10/24/24 17:41 Robertson # (Auto) 0.5 10^3/uL (0.2-0.9) 10/24/24 17:41 Eos # (Auto) 0.3 10^3/uL (0.0-0.8) 10/24/24 17:41 Baso # (Auto) 0.0 10^3/uL (0.0-0.1) 10/24/24 17:41 Nucleated RBC % (auto) 0 % 10/24/24 17:41 Nucleated RBCs # 0.0 /100WBC 10/24/24 17:41 PT 12.50 SECONDS (12.1-14.9) 10/24/24 17:41 INR 0.87 (0.8-1.2) 10/24/24 17:41 Sodium 138 mmol/L (136-145) 10/24/24 17:41 Potassium 3.0 mmol/L (3.5-5.1) L 10/24/24 17:41 Chloride 102 mmol/L (98-107) 10/24/24 17:41 Carbon Dioxide 20 mmol/L (22-29) L 10/24/24 17:41 Anion Gap 19.0 (5-19) 10/24/24 17:41 BUN 23 mg/dL (8-23) 10/24/24 17:41 Creatinine 1.2 mg/dL (0.5-0.9) H 10/24/24 17:41 GFR Calculation 45.4 mL/min (90-130) L 10/24/24 17:41 Glucose 118 mg/dL (65-115) H 10/24/24 17:41 Calculated Osmolality 291 mOsm/kg (285-295) 10/24/24 17:41 Lactic Acid 1.2 mmol/L (0.5-2.2) 10/24/24 17:41 Calcium 8.4 mg/dL (8.5-10.5) L 10/24/24 17:41 Total Bilirubin 0.2 mg/dL (0.15-1.2) 10/24/24 17:41 AST 5 U/L (0-32) 10/24/24 17:41 ALT < 5 U/L (0-33) 10/24/24 17:41 Alkaline Phosphatase 78 U/L (35-105) 10/24/24 17:41 Troponin T Baseline 14 ng/L (0-10) H 10/24/24 17:41 Total Protein 5.1 g/dL (6.6-8.7) L 10/24/24 17:41 Albumin 3.6 g/dL (3.5-5.2) 10/24/24 17:41 Globulin 1.5 g/dL (1.3-4.6) 10/24/24 17:41 Urine Color Yellow (Yellow) 10/24/24 18:39 Urine Appearance Clear (CLEAR) 10/24/24 18:39 Urine pH 6.5 (5-7) 10/24/24 18:39 Ur Specific [place] 1.013 (1.005-1.030) 10/24/24 18:39 Urine Protein Negative (Negative) 10/24/24 18:39 Urine Glucose (UA) Negative (Normal) 10/24/24 18:39 Urine Ketones Negative (Negative) 10/24/24 18:39 Urine Blood Negative (Negative) 10/24/24 18:39 Urine Nitrate Negative (Negative) 10/24/24 18:39 Urine Bilirubin Negative (Negative) 10/24/24 18:39 Urine Urobilinogen 0.2 mg/dL (Negative) 10/24/24 18:39 Ur Leukocyte Esterase Negative (Negative) 10/24/24 18:39 Urine RBC 0-2 /hpf (0-2) 10/24/24 18:39 Urine WBC 0-5 /hpf (0-5) 10/24/24 18:39 Ur Squamous Epith Cells 0-5 /hpf (0-5) 10/24/24 18:39 Amorphous Sediment Not Reportable 10/24/24 18:39 Urine Bacteria None seen /hpf (NONE) 10/24/24 18:39 Hyaline Casts 0-4 /lpf H 10/24/24 18:39 Blood Type O Positive 10/24/24 19:47 Rho(D) Type Rh positive 10/24/24 19:47 Antibody Screen Negative 10/24/24 19:47 Crossmatch See Detail 10/24/24 19:47 Discharge Plan Discharge Patient Disposition: Home Clinical Impression: Other iron deficiency anemias Condition: Stable Prescriptions: No Action montelukast [Singulair] 10 mg tablet 10 mg PO DAILY@20 loratadine [Claritin] 10 mg tablet 10 mg PO DAILY@08 PRN (Reason: Allergy Symptoms) amitriptyline 50 mg tablet 50 mg PO .HS Qty: 30 5RF buprenorphine-naloxone [Suboxone] 8-2 mg film 1 film sublingual DAILY PRN (Reason: Pain) duloxetine [Cymbalta] 60 mg capsule,delayed release(DR/EC) 90 mg PO DAILY meloxicam 15 mg tablet PO furosemide 20 mg tablet PO mupirocin 2 % ointment 1 applic topical BID PRN (Reason: Rash) Rx Instructions: apply to affected area once daily pantoprazole 40 mg tablet,delayed release (DR/EC) 40 mg PO DAILY bupropion HCl [Wellbutrin SR] 200 mg tablet sustained-release 12 hr 200 mg PO BID PRN (Reason: Anxiety) ondansetron 8 mg tablet,disintegrating 8 mg PO Q8H PRN (Reason: nausea and vomiting) Qty: 30 5RF iknwshhu-irrtp-sps-boron-hyal 500-66.7-500-2 mg tablet PO spironolactone 25 mg tablet 12.5 mg PO DAILY Qty: 90 3RF magnesium L-lactate 84 mg tablet extended release 84 mg PO BID Qty: 180 1RF tizanidine 4 mg Tablet 4 mg PO Q8H PRN (Reason: Muscle Spasm) diphenhydramine HCl [Banophen] 25 mg capsule 50 mg PO DAILY metoprolol succinate 25 mg tablet extended release 24 hr 25 mg PO DAILY lisinopril 2.5 mg tablet 2.5 mg PO DAILY potassium chloride 20 mEq tablet extended release 40 meq PO BID prochlorperazine maleate 10 mg tablet 10 mg PO Q8H PRN (Reason: Nausea And Vomiting) Discharge Orders: Discharge ED (Routine); Ordered 10/24/24 Ordered By: True Garibay Referrals: Thanh Meyer MD [Primary Care Provider, Family Practice] Patient Instructions: Patient Portal & S[place]ie Instructions Activity Restrictions/Additional Instructions: If you feel profoundly lightheaded or have consistently low blood pressure readings you are always welcome back in emergency department for reevaluation. You are given 1 unit of blood in addition to the iron transfusion you received today. Print Language: Nepalese Sign Out Sign Out Data: Patient Sign Out occurred on 10/24/24 at 18:08. Patient's care was discussed, and care was transferred from Jasmina Novoa MD to True Garibay MD. 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 Fwd Documented by User: True Garibay MD 10/25/24 02:59 HPI - General Adult General: Chief complaint: General Medical Stated complaint: ONC sent for low BP Time Seen by Provider: 10/24/24 17:24 Related Data Home Medications ?Medication ?Instructions ?Recorded ?Confirmed montelukast 10 mg tablet 10 mg PO DAILY@20 07/19/19 10/15/24 (Singulair) tizanidine 4 mg tablet 4 mg PO Q8H PRN Muscle Spasm 10/15/19 10/15/24 mupirocin 2 % topical ointment 1 applic topical BID PRN Rash 02/15/22 10/15/24 pantoprazole 40 mg tablet,delayed 40 mg PO DAILY 02/15/22 10/15/24 release loratadine 10 mg tablet (Claritin) 10 mg PO DAILY@08 PRN Allergy 06/23/22 10/15/24 Symptoms bupropion HCl 200 mg tablet,12 hr 200 mg PO BID PRN Anxiety 10/27/22 10/15/24 sustained-release (Wellbutrin SR) diphenhydramine HCl 25 mg capsule 50 mg PO DAILY 12/22/22 10/15/24 (Banophen) lisinopril 2.5 mg tablet 2.5 mg PO DAILY 12/22/22 10/15/24 metoprolol succinate 25 mg 25 mg PO DAILY 12/22/22 10/15/24 tablet,extended release 24 hr potassium chloride 20 mEq 40 meq PO BID 12/22/22 10/15/24 tablet,extended release buprenorphine 8 mg-naloxone 2 mg 1 film sublingual DAILY PRN Pain 12/29/22 10/15/24 sublingual film (Suboxone) duloxetine 60 mg capsule,delayed 90 mg PO DAILY 05/11/23 10/15/24 release (Cymbalta) prochlorperazine maleate 10 mg 10 mg PO Q8H PRN Nausea And 06/06/23 10/15/24 tablet Vomiting meloxicam 15 mg tablet mg PO 01/12/24 10/15/24 furosemide 20 mg tablet mg PO 02/01/24 10/15/24 glucosam 500 mg-chondroit 66.7 tab PO 06/21/24 10/15/24 mg-msm 500 mg-boron 2 mg-hyaluro tablet Previous Rx's ?Medication ?Instructions ?Recorded amitriptyline 50 mg tablet 50 mg PO .HS #30 tabs 06/23/21 magnesium L-lactate 84 mg 84 mg PO BID #180 tabs 11/12/22 tablet,extended release ondansetron 8 mg disintegrating 8 mg PO Q8H PRN nausea and 06/30/23 tablet vomiting #30 tabs spironolactone 25 mg tablet 12.5 mg (1/2 x 25 mg) PO DAILY #90 06/22/24 tabs Allergies Allergy/AdvReac Type Severity Reaction Status Date / Time No Known Allergies Allergy Verified 10/24/24 17:21 [facility] ED PFSH: Medical History Anemia Hypokalemia Diverticulosis Constipation Cystitis cystica Chronic back pain Depression Osteoporosis Fibromyalgia Peptic ulcer disease 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, recurrent, mild Surgical History History of hernia surgery (03/28/23) Laparoscopic repair of incisional hernias x 2 with mesh S/P LASIK surgery of both eyes History of tonsillectomy H/O right knee surgery H/O bilateral breast reduction surgery Hx of cholecystectomy H/O rhinoplasty Nasal fracture History of appendectomy Status post extracorporeal shock wave therapy URETERAL STENT PLACEMENT History of bone marrow biopsy H/O colonoscopy (10/14/20) Diverticulosis History of partial gastrectomy Secondary to peptic ulcer disease, perforated ulcer / partial transverse colectomy with reanastomosis ([place]) H/O: hysterectomy For fibroid and endometriosis / BSO Port-A-Cath in place Placed for transfusions for chronic anemia Family History Father , IN HIS 50'S No problems noted. Mother , AT AGE 78 Cancer OVARIAN Myocardial infarction Stroke Sister CAD (coronary artery disease) Other Hypertension Psychiatric illness Social History (Reviewed 06/16/25 @ 08:59 by WHIT Velasquez Smoking and tobacco/nicotine status: never used tobacco/nicotine Quit status (tobacco/nicotine): has quit using Year quit tobacco: 1980 Former quit date comment: smoked 6 years total Alcohol intake: current Alcohol intake frequency: holidays/special occasions only Substance/Drug Use: never Adopted: No Caregiver/support person: No Housing: House Marital status: Current occupational status: disabled Course Vital Signs: Vital signs: Vital Signs Temperature 98.2 F 10/24/24 23:47 Pulse Rate 52 L 10/25/24 00:26 Respiratory Rate 14 10/24/24 23:47 Blood Pressure 119/74 10/25/24 00:26 Pulse Oximetry 95 10/25/24 00:26 Oxygen Delivery Me thod Room Air 10/24/24 23:47 MDM - General Adult Medical Decision Making Patient care transitioned to Dr. Garibay at shift change. Patient arrived about 30 minutes before shift change. Patient states the she often feels lightheaded when standing up at home like she did today prior to coming to emergency department. Also, she has a history of hypotension following iron infusion. Without further intervention, blood pressure has improved to a mean arterial pressure of 75. Hemoglobin continues to drop slowly though she was given a single unit of blood for symptomatic anemia. She will be discharged in stable and improved condition with close follow-up to her primary team Lab Data 10/24/24 17:41 10/24/24 17:41 Laboratory Results WBC 5.75 10^3/uL (3.29-11.43) 10/24/24 17:41 RBC 2.84 10^6/uL (3.85-5.65) L 10/24/24 17:41 Hgb 7.60 g/dL (11.27-16.99) L 10/24/24 17:41 Hct 24.8 % (36-47) L 10/24/24 17:41 MCV 87.3 fl (85-98) 10/24/24 17:41 MCH 26.8 pg (27-33) L 10/24/24 17:41 MCHC 30.6 g/dL (30-55) 10/24/24 17:41 RDW 14.1 % (12.1-15.1) 10/24/24 17:41 Plt Count 274 10^3/cmm (157-399) 10/24/24 17:41 MPV 10.0 fL (7.4-10.4) 10/24/24 17:41 Neut % (Auto) 67.7 % 10/24/24 17:41 Lymph % (Auto) 17.2 % 10/24/24 17:41 [place] % (Auto) 9.4 % 10/24/24 17:41 Eos % (Auto) 4.9 % 10/24/24 17:41 Baso % (Auto) 0.3 % 10/24/24 17:41 Neut # (Auto) 3.89 10^3/uL (1.8-7.7) 10/24/24 17:41 Lymph # (Auto) 1.0 10^3/uL (0.8-4.8) 10/24/24 17:41 [place] # (Auto) 0.5 10^3/uL (0.2-0.9) 10/24/24 17:41 Eos # (Auto) 0.3 10^3/uL (0.0-0.8) 10/24/24 17:41 Baso # (Auto) 0.0 10^3/uL (0.0-0.1) 10/24/24 17:41 Nucleated RBC % (auto) 0 % 10/24/24 17:41 Nucleated RBCs # 0.0 /100WBC 10/24/24 17:41 PT 12.50 SECONDS (12.1-14.9) 10/24/24 17:41 INR 0.87 (0.8-1.2) 10/24/24 17:41 Sodium 138 mmol/L (136-145) 10/24/24 17:41 Potassium 3.0 mmol/L (3.5-5.1) L 10/24/24 17:41 Chloride 102 mmol/L (98-107) 10/24/24 17:41 Carbon Dioxide 20 mmol/L (22-29) L 10/24/24 17:41 Anion Gap 19.0 (5-19) 10/24/24 17:41 BUN 23 mg/dL (8-23) 10/24/24 17:41 Creatinine 1.2 mg/dL (0.5-0.9) H 10/24/24 17:41 GFR Calculation 45.4 mL/min (90-130) L 10/24/24 17:41 Glucose 118 mg/dL (65-115) H 10/24/24 17:41 Calculated Osmolality 291 mOsm/kg (285-295) 10/24/24 17:41 Lactic Acid 1.2 mmol/L (0.5-2.2) 10/24/24 17:41 Calcium 8.4 mg/dL (8.5-10.5) L 10/24/24 17:41 Total Bilirubin 0.2 mg/dL (0.15-1.2) 10/24/24 17:41 AST 5 U/L (0-32) 10/24/24 17:41 ALT < 5 U/L (0-33) 10/24/24 17:41 Alkaline Phosphatase 78 U/L (35-105) 10/24/24 17:41 Troponin T Baseline 14 ng/L (0-10) H 10/24/24 17:41 Total Protein 5.1 g/dL (6.6-8.7) L 10/24/24 17:41 Albumin 3.6 g/dL (3.5-5.2) 10/24/24 17:41 Globulin 1.5 g/dL (1.3-4.6) 10/24/24 17:41 Urine Color Yellow (Yellow) 10/24/24 18:39 Urine Appearance Clear (CLEAR) 10/24/24 18:39 Urine pH 6.5 (5-7) 10/24/24 18:39 Ur Specific [place] 1.013 (1.005-1.030) 10/24/24 18:39 Urine Protein Negative (Negative) 10/24/24 18:39 Urine Glucose (UA) Negative (Normal) 10/24/24 18:39 Urine Ketones Negative (Negative) 10/24/24 18:39 Urine Blood Negative (Negative) 10/24/24 18:39 Urine Nitrate Negative (Negative) 10/24/24 18:39 Urine Bilirubin Negative (Negative) 10/24/24 18:39 Urine Urobilinogen 0.2 mg/dL (Negative) 10/24/24 18:39 Ur Leukocyte Esterase Negative (Negative) 10/24/24 18:39 Urine RBC 0-2 /hpf (0-2) 10/24/24 18:39 Urine WBC 0-5 /hpf (0-5) 10/24/24 18:39 Ur Squamous Epith Cells 0-5 /hpf (0-5) 10/24/24 18:39 Amorphous Sediment Not Reportable 10/24/24 18:39 Urine Bacteria None seen /hpf (NONE) 10/24/24 18:39 Hyaline Casts 0-4 /lpf H 10/24/24 18:39 Blood Type O Positive 10/24/24 19:47 Rho(D) Type Rh positive 10/24/24 19:47 Antibody Screen Negative 10/24/24 19:47 Crossmatch See Detail 10/24/24 19:47 All radiology interpretation(s) finalized by discharge Discharge Plan Discharge Patient Disposition: Home Clinical Impression: Other iron deficiency anemias Condition: Stable Prescriptions: No Action montelukast [Singulair] 10 mg tablet 10 mg PO DAILY@20 loratadine [Claritin] 10 mg tablet 10 mg PO DAILY@08 PRN (Reason: Allergy Symptoms) amitriptyline 50 mg tablet 50 mg PO .HS Qty: 30 5RF buprenorphine-naloxone [Suboxone] 8-2 mg film 1 film sublingual DAILY PRN (Reason: Pain) duloxetine [Cymbalta] 60 mg capsule,delayed release(DR/EC) 90 mg PO DAILY meloxicam 15 mg tablet PO furosemide 20 mg tablet PO mupirocin 2 % ointment 1 applic topical BID PRN (Reason: Rash) Rx Instructions: apply to affected area once daily pantoprazole 40 mg tablet,delayed release (DR/EC) 40 mg PO DAILY bupropion HCl [Wellbutrin SR] 200 mg tablet sustained-release 12 hr 200 mg PO BID PRN (Reason: Anxiety) ondansetron 8 mg tablet,disintegrating 8 mg PO Q8H PRN (Reason: nausea and vomiting) Qty: 30 5RF lhqmiqfj-bczmv-cal-boron-hyal 500-66.7-500-2 mg tablet PO spironolactone 25 mg tablet 12.5 mg PO DAILY Qty: 90 3RF magnesium L-lactate 84 mg tablet extended release 84 mg PO BID Qty: 180 1RF tizanidine 4 mg Tablet 4 mg PO Q8H PRN (Reason: Muscle Spasm) diphenhydramine HCl [Banophen] 25 mg capsule 50 mg PO DAILY metoprolol succinate 25 mg tablet extended release 24 hr 25 mg PO DAILY lisinopril 2.5 mg tablet 2.5 mg PO DAILY potassium chloride 20 mEq tablet extended release 40 meq PO BID prochlorperazine maleate 10 mg tablet 10 mg PO Q8H PRN (Reason: Nausea And Vomiting) Discharge Orders: Discharge ED (Routine); Ordered 10/24/24 Ordered By: True Garibay Referrals: Thanh Meyer MD [Primary Care Provider, Family Practice] Patient Instructions: Patient Portal & S[place]ie Instructions Activity Restrictions/Additional Instructions: If you feel profoundly lightheaded or have consistently low blood pressure readings you are always welcome back in emergency department for reevaluation. You are given 1 unit of blood in addition to the iron transfusion you received today. Print Language: Nepalese Sign Out Sign Out Data: Patient Sign Out occurred on 10/24/24 at 18:08. Patient's care was discussed, and care was transferred from Jasmina Novoa MD to True Garibay MD. 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
--- NOTE | 2024-10-24 17:27 | ECG_ITS ---
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 Editor: : 1960 Requested By: Jasmina Pope Order Number: [id number] Reading MD: Measurements Intervals [place] Rate: 45 P: 52 WI: 181 QRS: -67 QRSD: 89 T: 0 QT: 456 QTc: 395 Interpretive Statements SINUS BRADYCARDIA LOW QRS VOLTAGE IN PRECORDIAL LEADS [QRS DEFLECTION < 1.0 mV IN CHEST LEADS] INFERIOR MYOCARDIAL INFARCTION , PROBABLY OLD [40+ ms Q WAVE AND/OR ST/T ABNORMALITY IN II/aVF] PROBABLE ANTEROLATERAL MYOCARDIAL INFARCTION , OF INDETERMINATE AGE [35 ms Q WAVE IN I/aVL/V3-V6] MARKED ST DEPRESSION, CONSIDER SUBENDOCARDIAL INJURY [0.2+ mV ST DEPRESSION] ACUTE GA [email or web address]
[2024-10-24 17:47] LABS: Basophils % 0.3 %; Eosinophils # 0.3 10^3/uL (0.0-0.8); Eosinophils % 4.9 %; Hematocrit 24.8 % (36-47); Lymphocytes % 17.2 %; Mean Corpuscular HGB Conc 30.6 g/dL (30-55); Mean Corpuscular Hemoglobin 26.8 pg (27-33); Mean Corpuscular Volume 87.3 fl (85-98); Monocytes # 0.5 10^3/uL (0.2-0.9); Monocytes % 9.4 %; Neutrophils # 3.89 10^3/uL (1.8-7.7); Neutrophils % 67.7 %; Nucleated Red Blood Cells % 0 %; Platelet Count 274 10^3/cmm (157-399); Red Blood Count 2.84 10^6/uL (3.85-5.65); Red Cell Distribution Width 14.1 % (12.1-15.1); White Blood Count 5.75 10^3/uL (3.29-11.43)
[2024-10-24 18:01] LABS: INR 0.87 (0.8-1.2)
[2024-10-24 18:07] LABS: Troponin(5th) Baseline 14 ng/L (0-10)
[2024-10-24 18:08] LABS: Albumin Level 3.6 g/dL (3.5-5.2); Alkaline Phosphatase 78 U/L (35-105); Blood Urea Nitrogen 23 mg/dL (8-23); Calcium 8.4 mg/dL (8.5-10.5); Carbon Dioxide 20 mmol/L (22-29); Chloride 102 mmol/L (98-107); Creatinine Clr Calc Pharmacy 33.7374; Globulin 1.5 g/dL (1.3-4.6); Glomerular Filtration Rate 45.4 mL/min (90-130); Glucose 118 mg/dL (65-115); Osmolality Calculated 291 mOsm/kg (285-295); Sodium 138 mmol/L (136-145); Total Bilirubin 0.2 mg/dL (0.15-1.2); Total Protein 5.1 g/dL (6.6-8.7)
[2024-10-24 18:09] LABS: Lactic Sepsis W/Reflex 1.2 mmol/L (0.5-2.2)
[2024-10-24 18:20] LABS: Alanine Aminotransferase < 5 U/L (0-33); Aspartate Amino Transferase 5 U/L (0-32)
[2024-10-24 18:48] LABS: Bilirubin Urine Negative (Negative); Blood Urine Negative (Negative); Glucose Urine UA Negative (Normal); Ketones Urine Negative (Negative); Leukocyte Esterase Urine Negative (Negative); Nitrate Urine Negative (Negative); Protein Urine Negative (Negative); Specific Gravity, Urine 1.013 (1.005-1.030); Urine Appearance Clear (CLEAR); Urine Color Yellow (Yellow); Urobilinogen Urine 0.2 mg/dL (Negative); pH Urine 6.5 (5-7)
[2024-10-24 18:54] LABS: Bacteria Urine None Seen /hpf; Hyaline Casts Urine 0-4 /lpf; RBC Urine 0-2 /hpf (0-2); Squamous Epithelial Cell Urine 0-5 /hpf (0-5); WBC Urine 0-5 /hpf (0-5)
[2024-10-24 18:58] LABS: Add Urine Culture? No
--- NOTE | 2024-10-24 20:57 | PC.NURSE ---
Blood consent form signed by patient and Dr Garibay.
--- NOTE | 2024-10-24 22:24 | PC.NURSE ---
2224 TITRATED BLOOD TO 150 MLS/HR
[2024-10-25 00:26] VITALS: BP 119/74; PULSE 52; O2SAT 95
== END 2024-10-25 00:31 | disposition home or self-care (01) ==
PROVIDERS: Emergency Medicine; Emergency Provider Student in an Organized Health Care Education/Training Program; PCP Family Medicine
DX: D50.8 Other iron deficiency anemias (principal); Z87.891 Personal history of nicotine dependence
CPT/HCPCS: 36415; 36430; 80053; 81001; 83605; 84484; 85025; 85610; 86850; 86900; 86920; 87040; 93005; 96374; 99284; J1642; P9016

== ENCOUNTER 2024-10-25 13:18 | Outpatient (CLI) | payer MEDICAID, SELFPAY ==
--- NOTE | 2024-10-25 13:30 | USCV_ITS ---
NargismelecioPreeti Age: 64 Gender: F : 1960 Exam Date: 10/25/2024 13:41 Ordering Phys: Hemanth Jimenez M.D ([email or web address]) Technologist: TAYE Exam Location: [facility] – [place] Indication: EF assessment BP: 94 / 60 HR: Rhythm: Sinus Technical Quality: Adequate MEASUREMENTS (Male / Female) Normal Values 2D ECHO LVOT Diameter 2.0 cm LV Ejection Fraction MOD 4C 56.2 % LV Ejection Fraction MOD 2C 63.1 % LV Ejection Fraction 2C AL 64.2 % LA Diameter 2.1 cm RA Systolic Volume 4C AL 18.3 ml RA Systolic Volume 4C MOD 17.2 ml LA Sys Volume AL 21.1 cm cubed LA Sys Volume Index AL 16.5 cm cubed/m squared Aorta at Sinotubular Diameter 2.3 cm IVC Diameter 1.3 cm M-MODE LA Ao Ratio MM 1.1 AV Cusp Separation MM 1.5 cm FINDINGS Left Ventricle Right Ventricle Right Atrium Left Atrium Mitral Valve Aortic Valve Tricuspid Valve Pulmonic Valve Pericardium Aorta IVC CONCLUSIONS Limited echocardiogram performed to assess LV systolic function. LV systolic function is normal with EF of 55-60%. No regional wall motion abnormalities are seen. Hemanth Jimenez MD (Electronically Signed) Final Date: 05 November 2024 10:24 S
== END 2024-10-25 13:19 | disposition home or self-care (01) ==
PROVIDERS: PCP Family Medicine; Visit Provider Internal Medicine
DX: R07.9 Chest pain, unspecified (principal); I34.0 Nonrheumatic mitral (valve) insufficiency
CPT/HCPCS: 93308

== ENCOUNTER → 2024-11-06 06:09 | Day surgery (SDC) | payer MEDICAID, SELFPAY ==
[2024-11-06 06:34] VITALS: BMI 19.1
[2024-11-06 06:48] VITALS: BP 89/51; PULSE 61; RESP 18; TEMP 36.6; O2SAT 97
--- NOTE | 2024-11-06 07:13 | W.PM.OPSUD ---
Surgery/Procedure H&P Update DATE OF PROCEDURE: November 06, 2024 DATE H&P PERFORMED: 10/15/24 H&P UPDATE INFORMATION: I have reviewed H&P completed within last 30 days, I have examined patient prior to procedure and No changes to prior documentation PLANNED PROCEDURE: Operation Date: 11/06/24 07:15 Proposed Procedures p EGD with Biopsy [id number], R10.13, R12(Not Applicable) - Nemesio Masters MD
[2024-11-06 07:34] VITALS: BP 74/46
[2024-11-06 07:45] VITALS: BP 89/38
[2024-11-06 08:12] VITALS: BP 95/51
[2024-11-06 08:34] VITALS: BP 90/50
--- NOTE | 2024-11-06 08:42 | ANES.PREANE2 ---
Pre-Anesthetic Assessment Height/Weight: Height 1.52 m Weight 44.452 kg Temp Pulse Resp BP Pulse Ox O2 Del Method 98 F 61 18 90/50 97 Room Air 11/06/24 06:48 11/06/24 06:48 11/06/24 06:48 11/06/24 08:34 11/06/24 06:48 11/06/24 06:48 Operation Date: 11/06/24 07:15 Proposed Procedures p EGD with Biopsy 17975, R10.13, R12(Not Applicable) - Nemesio Masters MD Was Beta Ольга taken within 24 hours: Yes (metoprol) Last intake: Intake Last Liquid Date 11/05/24 Last Liquid Time 21:00 Last Solid Date 11/05/24 Last Solid Time 21:00 Social No tobacco Exam alert, oriented x 3, clear to auscultation bilaterally and regular rate & rhythm Airway Submandibular: within normal limits Cervical ROM: within normal limits Mallampati: Class I Dentition: false History/ROS No significant history except as noted and No significant complaints Pulmonary None reported Medications/Allergies Home Medications ?Medication ?Instructions ?Recorded ?Confirmed ?Last Taken ?Type montelukast 10 mg tablet 10 mg PO DAILY 07/19/19 11/01/24 11/05/24 History (Singulair) tizanidine 4 mg tablet 4 mg PO Q8H PRN Muscle Spasm 10/15/19 11/01/24 11/05/24 History amitriptyline 50 mg tablet 50 mg PO .HS #30 tabs 06/23/21 11/01/24 11/05/24 Rx mupirocin 2 % topical ointment 1 applic topical BID PRN Rash 02/15/22 11/01/24 12/29/23 History pantoprazole 40 mg tablet,delayed 40 mg PO DAILY 02/15/22 11/01/24 11/05/24 History release loratadine 10 mg tablet (Claritin) 10 mg PO DAILY@08 PRN Allergy 06/23/22 11/01/24 11/05/24 History Symptoms bupropion HCl 200 mg tablet,12 hr 200 mg PO BID PRN Anxiety 10/27/22 11/01/24 11/05/24 History sustained-release (Wellbutrin SR) magnesium L-lactate 84 mg 84 mg PO BID #180 tabs 11/12/22 11/01/24 11/05/24 Rx tablet,extended release diphenhydramine HCl 25 mg capsule 50 mg PO DAILY 12/22/22 11/01/24 11/05/24 History (Banophen) lisinopril 2.5 mg tablet 2.5 mg PO DAILY 12/22/22 11/01/24 11/05/24 History metoprolol succinate 25 mg 25 mg PO DAILY 12/22/22 11/01/24 11/05/24 History tablet,extended release 24 hr buprenorphine 8 mg-naloxone 2 mg 1 film sublingual DAILY PRN Pain 12/29/22 11/01/24 11/05/24 History sublingual film (Suboxone) duloxetine 60 mg capsule,delayed 90 mg PO DAILY 05/11/23 11/01/24 11/05/24 History release (Cymbalta) prochlorperazine maleate 10 mg 10 mg PO Q8H PRN Nausea And 06/06/23 11/01/24 11/05/24 History tablet Vomiting ondansetron 8 mg disintegrating 8 mg PO Q8H PRN nausea and 06/30/23 11/01/24 10/29/24 Rx tablet vomiting #30 tabs meloxicam 15 mg tablet 15 mg PO DAILY 01/12/24 11/01/24 11/05/24 History furosemide 20 mg tablet 20 mg PO DAILY 02/01/24 11/01/24 11/05/24 History spironolactone 25 mg tablet 12.5 mg (1/2 x 25 mg) PO DAILY #90 06/22/24 11/01/24 11/05/24 Rx tabs Allergies Allergy/AdvReac Type Severity Reaction Status Date / Time No Known Allergies Allergy Verified 11/01/24 09:58 Current Medications Generic Name Dose Route Start Last Admin Trade Name Freq PRN Reason Stop Dose Admin Sodium Chloride 1,000 mls @ 15 mls/hr 11/06/24 06:43 11/06/24 08:29 Sodium Chloride 0.9% IV 11/07/24 06:42 15 mls/hr .Q24H PRN Administration COLONOSCOPY FLUIDS PFSH Anesthesia Medical History (Updated 10/24/24 @ 23:05 by True Garibay MD) Anemia Hypokalemia Diverticulosis Constipation Cystitis cystica Chronic back pain Depression Osteoporosis Fibromyalgia Peptic ulcer disease 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, recurrent, mild Surgical History History of hernia surgery (03/28/23) Laparoscopic repair of incisional hernias x 2 with mesh S/P LASIK surgery of both eyes History of tonsillectomy H/O right knee surgery H/O bilateral breast reduction surgery Hx of cholecystectomy H/O rhinoplasty Nasal fracture History of appendectomy Status post extracorporeal shock wave therapy URETERAL STENT PLACEMENT History of bone marrow biopsy H/O colonoscopy (10/14/20) Diverticulosis History of partial gastrectomy Secondary to peptic ulcer disease, perforated ulcer / partial transverse colectomy with reanastomosis ([place], [place]) H/O: hysterectomy For fibroid and endometriosis / BSO Port-A-Cath in place Placed for transfusions for chronic anemia Family History Father , IN HIS 50'S No problems noted. Mother , AT AGE 78 Cancer OVARIAN Myocardial infarction Stroke Sister CAD (coronary artery disease) Other Hypertension Psychiatric illness Social History Smoking and tobacco/nicotine status: never used tobacco/nicotine Quit status (tobacco/nicotine): has quit using Year quit tobacco: 1980 Former quit date comment: smoked 6 years total Alcohol intake: current Alcohol intake frequency: holidays/special occasions only Substance/Drug Use: never Adopted: No Caregiver/support person: No Housing: House Marital status: Current occupational status: disabled Data Anesthesia Cardiac Studies: Echocardiogram 12/22/22 Echocardiogram Limited Views 10/25/24 Cardiac Event Monitor 06/30/22
--- NOTE | 2024-11-06 09:07 | PC.NURSE ---
After 1 liter of fluid, pts BP still not up to par to satisfy anesthesia. So, procedure canceled by anesthesia and pt encouraged to go to ER or go see her health care technician soon. Pt did not want to go to the ER and said that she would go to her health care technician. Port a cath deaccessed and pt taken out via wheelchair.
--- NOTE | 2024-11-06 09:41 | PM.MISC ---
Documented by User: Olga Birch CRNA 11/06/24 09:42 Miscellaneous Note Note: cancelled for hypotension. Discussed with surgeon. Documented by User: Shena Barcenas 11/06/24 11:52 Miscellaneous Note Note: cancelled for hypotension. Discussed with surgeon. Patient states not symptomatic at the moment, but has recently been feeling weak and fatigued, Recommended to go to ER. Patient declined at this time.
== END ==
LOC: GILAB 06:09
PROVIDERS: PCP Family Medicine; Visit Provider Student in an Organized Health Care Education/Training Program
PROC: 0DJ08ZZ Inspection of Upper Intestinal Tract, Via Natural or Artificial Opening Endoscopic (ICD-10-PCS; principal; 2024-11-06 07:15)
DX: R10.13 Epigastric pain (principal); I95.9 Hypotension, unspecified; Z53.8 Procedure and treatment not carried out for other reasons
CPT/HCPCS: J7030

== ENCOUNTER → 2024-11-16 08:37 | Outpatient (BNVA) | payer MEDICAID, SELFPAY | PROVIDERS: PCP Family Medicine; Visit Provider Nurse Practitioner Family | DX: I51.81 Takotsubo syndrome (principal); I95.0 Idiopathic hypotension; Z09 Encounter for follow-up examination after completed treatment for conditions other than malignant neoplasm; Z87.891 Personal history of nicotine dependence; R94.31 Abnormal electrocardiogram [ECG] [EKG]; I51.9 Heart disease, unspecified; E87.6 Hypokalemia | CPT/HCPCS: 99213 ==

== ENCOUNTER 2024-11-20 13:36 | Outpatient (CLI) | payer MEDICAID, SELFPAY ==
[2024-11-20 14:37] LABS: Hematocrit 30.4 % (36-47); Hemoglobin 9.30 g/dL (11.27-16.99); Mean Corpuscular HGB Conc 30.6 g/dL (30-55); Mean Corpuscular Hemoglobin 26.8 pg (27-33); Mean Corpuscular Volume 87.6 fl (85-98); Nucleated Red Blood Cells % 0 %; Platelet Count 258 10^3/cmm (157-399); Red Blood Count 3.47 10^6/uL (3.85-5.65); White Blood Count 4.97 10^3/uL (3.29-11.43)
[2024-11-20 15:18] LABS: Anion Gap 16.6 (5-19); Blood Urea Nitrogen 9 mg/dL (8-23); Calcium 9.1 mg/dL (8.5-10.5); Carbon Dioxide 22 mmol/L (22-29); Chloride 105 mmol/L (98-107); Free T4 Free Thyroxine 0.73 ng/dL (0.82-1.77); Glucose 86 mg/dL (65-115); Osmolality Calculated 288 mOsm/kg (285-295); Potassium 3.6 mmol/L (3.5-5.1); Sodium 140 mmol/L (136-145)
[2024-11-20 15:39] LABS: NT Pro B Type Natriuretic Pept 380 pg/mL (0-125); Thyroid Stimulating Hormone 1.73 uIU/mL (0.27-4.20)
== END 2024-11-20 13:37 | disposition home or self-care (01) ==
LOC: LAB 13:37
PROVIDERS: PCP Family Medicine; Visit Provider Nurse Practitioner Family
DX: R94.31 Abnormal electrocardiogram [ECG] [EKG] (principal); I51.9 Heart disease, unspecified; E87.6 Hypokalemia
CPT/HCPCS: 36415; 80048; 83880; 84439; 84443; 85025

== ENCOUNTER 2024-12-18 08:38 | Day surgery (SDC) | payer MEDICAID, SELFPAY ==
[2024-12-18 08:59] VITALS: BP 119/69; PULSE 70; RESP 18; TEMP 36.5; O2SAT 97; BMI 17.9
--- NOTE | 2024-12-18 09:18 | ANES.PREANE2 ---
Pre-Anesthetic Assessment Height/Weight: Height 1.52 m Weight 41.73 kg Temp Pulse Resp BP Pulse Ox O2 Del Method 97.7 F 70 18 119/69 97 Room Air 12/18/24 08:59 12/18/24 08:59 12/18/24 08:59 12/18/24 08:59 12/18/24 08:59 12/18/24 08:59 Operation Date: 12/18/24 10:00 Proposed Procedures p EGD EGD with Biopsy 35625 R10.13 R12(Not Applicable) - Nemesio Masters MD Familial anesthetic complications: None Was Beta Ольга taken within 24 hours: N/A (Last took metoprolol a few weeks ago due to hypotension) Was Clonidine taken within 24 hours: N/A Last intake: Intake Last Liquid Date 12/17/24 Last Liquid Time 21:00 Last Solid Date 12/17/24 Last Solid Time 20:00 Social No alcohol (Stopped 7 months ago) and No tobacco (Vapes THC and gummies) Exam alert, oriented x 3, clear to auscultation bilaterally and regular rate & rhythm Airway Submandibular: within normal limits Cervical ROM: within normal limits Mallampati: Class I Dentition: false History/ROS No significant history except as noted and No significant complaints Pulmonary Exertional Dyspnea CV/HEM Anemia, Arrythmia, Coronary Artery Disease, Myocardial Infarction (Last NM 2.5 years ago, no stents placed. Last saw manager emergency 2 weeks ago. No new changes) and Murmur CONCLUSIONS Limited echocardiogram performed to assess LV systolic function. LV systolic function is normal with EF of 55-60%. No regional wall motion abnormalities are seen. Hx kidney stones and UTI Hepatic None reported Hx alcohol abuse GI N/V Metabolic [place] Disease [facility] [place] Back Pain and Osteoarthritis/DJD Neuropsych Anxiety, Depression and Headache (Chronic headaches/migraines) Anesthetic Plan ASA status: 3 Anesthesia: Anesthesia Evaluation, General and MAC Risk of > 500 ml blood loss (7ml/kg in children): No Medications/Allergies Home Medications ?Medication ?Instructions ?Recorded ?Confirmed ?Last Taken ?Type montelukast 10 mg tablet 10 mg PO DAILY 07/19/19 12/14/24 12/14/24 History (Singulair) tizanidine 4 mg tablet 4 mg PO Q8H PRN Muscle Spasm 06/12/14/24 12/13/24 History amitriptyline 50 mg tablet 50 mg PO .HS #30 tabs 06/23/21 12/14/24 12/14/24 Rx mupirocin 2 % topical ointment 1 applic topical BID PRN Rash 02/15/22 12/14/24 12/29/23 History pantoprazole 40 mg tablet,delayed 40 mg PO DAILY 02/15/22 12/14/24 12/14/24 History release loratadine 10 mg tablet (Claritin) 10 mg PO DAILY@08 PRN Allergy 06/23/22 12/14/24 12/14/24 History Symptoms bupropion HCl 200 mg tablet,12 hr 200 mg PO BID PRN Anxiety 10/27/22 12/14/24 12/14/24 History sustained-release (Wellbutrin SR) magnesium L-lactate 84 mg 84 mg PO BID #180 tabs 11/12/22 12/14/24 11/05/24 Rx tablet,extended release diphenhydramine HCl 25 mg capsule 50 mg PO DAILY 12/22/22 12/14/24 12/12/24 History (Banophen) lisinopril 2.5 mg tablet 2.5 mg PO DAILY 12/22/22 12/14/24 2 Weeks Ago History ~11/30/24 metoprolol succinate 25 mg 25 mg PO DAILY 12/22/22 12/14/24 2 Weeks Ago History tablet,extended release 24 hr ~11/30/24 buprenorphine 8 mg-naloxone 2 mg 1 film sublingual DAILY PRN Pain 12/29/22 12/14/24 12/14/24 History sublingual film (Suboxone) duloxetine 60 mg capsule,delayed 90 mg PO DAILY 05/11/23 12/14/24 12/14/24 History release (Cymbalta) prochlorperazine maleate 10 mg 10 mg PO Q8H PRN Nausea And 06/06/23 12/14/24 11/05/24 History tablet Vomiting ondansetron 8 mg disintegrating 8 mg PO Q8H PRN nausea and 06/30/23 12/14/24 12/13/24 Rx tablet vomiting #30 tabs meloxicam 15 mg tablet 15 mg PO DAILY 01/12/24 12/14/24 12/14/24 History furosemide 20 mg tablet 20 mg PO DAILY 02/01/24 12/14/24 12/12/24 History spironolactone 25 mg tablet 12.5 mg (1/2 x 25 mg) PO DAILY #90 06/22/24 12/14/24 12/14/24 Rx tabs Allergies Allergy/AdvReac Type Severity Reaction Status Date / Time No Known Allergies Allergy Verified 12/14/24 08:12 Current Medications Generic Name Dose Route Start Last Admin Trade Name Freq PRN Reason Stop Dose Admin Sodium Chloride 1,000 mls @ 15 mls/hr 12/18/24 08:41 12/18/24 09:16 Sodium Chloride 0.9% IV 12/19/24 08:40 15 mls/hr .Q24H PRN Administration COLONOSCOPY FLUIDS PFSH Anesthesia Medical History (Updated 11/16/24 @ 18:30 by Vivian Velásquez NP) Anemia Hypokalemia Diverticulosis Constipation Cystitis cystica Chronic back pain Depression Osteoporosis Fibromyalgia Peptic ulcer disease 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, recurrent, mild Surgical History History of hernia surgery (03/28/23) Laparoscopic repair of incisional hernias x 2 with mesh S/P LASIK surgery of both eyes History of tonsillectomy H/O right knee surgery H/O bilateral breast reduction surgery Hx of cholecystectomy H/O rhinoplasty Nasal fracture History of appendectomy Status post extracorporeal shock wave therapy URETERAL STENT PLACEMENT History of bone marrow biopsy H/O colonoscopy (10/14/20) Diverticulosis History of partial gastrectomy Secondary to peptic ulcer disease, perforated ulcer / partial transverse colectomy with reanastomosis ([place], [place]) H/O: hysterectomy For fibroid and endometriosis / BSO Port-A-Cath in place Placed for transfusions for chronic anemia Family History Father , IN HIS 50'S No problems noted. Mother , AT AGE 78 Cancer OVARIAN Myocardial infarction Stroke Sister CAD (coronary artery disease) Other Hypertension Psychiatric illness Social History (Updated 11/16/24 @ 08:47 by Kary Ashraf LPN) Smoking and tobacco/nicotine status: former use of tobacco/nicotine Quit status (tobacco/nicotine): has quit using Year quit tobacco: 1980 Former quit date comment: smoked 6 years total Alcohol intake: former Year of sobriety/quit date alcohol: 2024 Former alcohol use details: 6 month sobriety Substance/Drug Use: never Adopted: No Caregiver/support person: No Housing: House Marital status: Current occupational status: disabled Data Anesthesia Cardiac Studies: Echocardiogram 12/22/22 Echocardiogram Limited Views 10/25/24 Cardiac Event Monitor 06/30/22
--- NOTE | 2024-12-18 09:44 | W.PM.OPSFHP ---
Same Day Surgery H&P Indication for Procedure/HPI DATE OF PROCEDURE: December 18, 2024 CHIEF COMPLAINT/INDICATIONFOR SURGICAL PROCEDURE: epigastric pain PREOP DIAGNOSIS: epigastric pain PLANNED PROCEDURE: Operation Date: 12/18/24 10:00 Proposed Procedures p EGD EGD with Biopsy 86591 R10.13 R12(Not Applicable) - Nemesio Masters MD Medications/Allergies* Home Medications ?Medication ?Instructions ?Recorded ?Confirmed ?Type montelukast 10 mg tablet 10 mg PO DAILY 07/19/19 12/14/24 History (Singulair) tizanidine 4 mg tablet 4 mg PO Q8H PRN Muscle Spasm 10/15/19 12/14/24 History mupirocin 2 % topical ointment 1 applic topical BID PRN Rash 02/15/22 12/14/24 History pantoprazole 40 mg tablet,delayed 40 mg PO DAILY 02/15/22 12/14/24 History release loratadine 10 mg tablet (Claritin) 10 mg PO DAILY@08 PRN Allergy 06/23/22 12/14/24 History Symptoms bupropion HCl 200 mg tablet,12 hr 200 mg PO BID PRN Anxiety 10/27/22 12/14/24 History sustained-release (Wellbutrin SR) diphenhydramine HCl 25 mg capsule 50 mg PO DAILY 12/22/22 12/14/24 History (Banophen) lisinopril 2.5 mg tablet 2.5 mg PO DAILY 12/22/22 12/14/24 History metoprolol succinate 25 mg 25 mg PO DAILY 12/22/22 12/14/24 History tablet,extended release 24 hr buprenorphine 8 mg-naloxone 2 mg 1 film sublingual DAILY PRN Pain 12/29/22 12/14/24 History sublingual film (Suboxone) duloxetine 60 mg capsule,delayed 90 mg PO DAILY 05/11/23 12/14/24 History release (Cymbalta) prochlorperazine maleate 10 mg 10 mg PO Q8H PRN Nausea And 06/06/23 12/14/24 History tablet Vomiting meloxicam 15 mg tablet 15 mg PO DAILY 01/12/24 12/14/24 History furosemide 20 mg tablet 20 mg PO DAILY 02/01/24 12/14/24 History Allergies/Adverse Reactions Allergy/AdvReac Type Severity Reaction Status Date / Time No Known Allergies Allergy Verified 12/14/24 08:12 Current Medications: Generic Name Dose Route Start Last Admin Trade Name Freq PRN Reason Stop Dose Admin Sodium Chloride 1,000 mls @ 15 mls/hr 12/18/24 08:41 12/18/24 09:16 Sodium Chloride 0.9% IV 12/19/24 08:40 15 mls/hr .Q24H PRN Administration COLONOSCOPY FLUIDS Pertinent History/Comorbid Conditions* Medical History (Updated 11/16/24 @ 18:30 by Vivian Velásquez NP) Anemia Hypokalemia Diverticulosis Constipation Cystitis cystica Chronic back pain Depression Osteoporosis Fibromyalgia Peptic ulcer disease 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, recurrent, mild Surgical History (Updated 06/30/23 @ 14:40 by Eleazar Zhu DO) History of hernia surgery (03/28/23) Laparoscopic repair of incisional hernias x 2 with mesh S/P LASIK surgery of both eyes History of tonsillectomy H/O right knee surgery H/O bilateral breast reduction surgery Hx of cholecystectomy H/O rhinoplasty Nasal fracture History of appendectomy Status post extracorporeal shock wave therapy URETERAL STENT PLACEMENT History of bone marrow biopsy H/O colonoscopy (10/14/20) Diverticulosis History of partial gastrectomy Secondary to peptic ulcer disease, perforated ulcer / partial transverse colectomy with reanastomosis ([place], [place]) H/O: hysterectomy For fibroid and endometriosis / BSO Port-A-Cath in place Placed for transfusions for chronic anemia Family History (Updated 02/15/22 @ 13:39 by Dea Concepcion RN) Father, IN HIS 50'S Mother, AT AGE 78 CAD (coronary artery disease) Sister Psychiatric illness Myocardial infarction Mother Cancer Mother OVARIAN Hypertension Stroke Mother Social History Smoking and tobacco/nicotine status: former use of tobacco/nicotine Quit status (tobacco/nicotine): has quit using Year quit tobacco: 1980 Former quit date comment: smoked 6 years total Alcohol intake: former Year of sobriety/quit date alcohol: 2024 Former alcohol use details: 6 month sobriety Substance/Drug Use: never Adopted: No Caregiver/support person: No Housing: House Marital status: Current occupational status: disabled Pertinent Exam Findings alert, oriented x 3, clear to auscultation bilaterally, regular rate & rhythm and procedure specific exam findings abdomen soft, nt, nd Recommendations Risks and benefits of procedure reviewed and Patient/family agree to proceed Surgery/Procedure today Coding Level of Care Code Acute Code for Chg Fwd
[2024-12-18 09:56] VITALS: BP 116/64; PULSE 71; RESP 16; TEMP 36.7; O2SAT 99
--- NOTE | 2024-12-18 10:25 | ANE.PACU2 ---
Inpatient post-anesthesia follow up: Airway intact: Yes Vital signs: Temperature 98.1 F Pulse Rate 71 Respiratory Rate 16 Blood Pressure 116/64 Pulse Oximetry 99 Oxygen Delivery Me thod Room Air Oxygen Flow Rate Fraction of Inspir ed Oxygen Hydration adequate: Yes Nausea and vomiting: No Pain level: 1 Mental status: Baseline
== END 2024-12-18 10:28 | disposition home or self-care (01) ==
PROVIDERS: PCP Family Medicine; Visit Provider Student in an Organized Health Care Education/Training Program
PROC: 0DJ08ZZ Inspection of Upper Intestinal Tract, Via Natural or Artificial Opening Endoscopic (ICD-10-PCS; principal; 2024-12-18 10:00)
DX: R10.13 Epigastric pain (principal); K29.70 Gastritis, unspecified, without bleeding; K21.9 Gastro-esophageal reflux disease without esophagitis; K57.30 Diverticulosis of large intestine without perforation or abscess without bleeding; K59.00 Constipation, unspecified; F32.A Depression, unspecified; M79.7 Fibromyalgia; K27.9 Peptic ulcer, site unspecified, unspecified as acute or chronic, without hemorrhage or perforation; F32.9 Major depressive disorder, single episode, unspecified; Z87.891 Personal history of nicotine dependence
CPT/HCPCS: 43239; 88305; J2704; J7030

== ENCOUNTER 2024-12-27 13:30 | Oncology outpatient (recurring) (ONCR) | payer MEDICAID, SELFPAY ==
[2024-12-20 13:33] LABS: Hematocrit 29.8 % (36-47); Hemoglobin 9.70 g/dL (11.27-16.99); Mean Corpuscular HGB Conc 32.6 g/dL (30-55); Mean Corpuscular Hemoglobin 27.3 pg (27-33); Mean Corpuscular Volume 83.9 fl (85-98); Nucleated Red Blood Cells % 0 %; Platelet Count 293 10^3/cmm (157-399); Red Blood Count 3.55 10^6/uL (3.85-5.65); White Blood Count 10.26 10^3/uL (3.29-11.43)
[2024-12-20 13:55] LABS: Alanine Aminotransferase 23 U/L (0-33); Albumin Level 3.9 g/dL (3.5-5.2); Alkaline Phosphatase 67 U/L (35-105); Anion Gap 14.5 (5-19); Aspartate Amino Transferase 32 U/L (0-32); Blood Urea Nitrogen 6 mg/dL (8-23); Calcium 8.7 mg/dL (8.5-10.5); Carbon Dioxide 23 mmol/L (22-29); Chloride 105 mmol/L (98-107); Ferritin 148 ng/mL (15-150); Globulin 1.8 g/dL (1.3-4.6); Glucose 114 mg/dL (65-115); Iron 53 ug/dL (37-145); Osmolality Calculated 288 mOsm/kg (285-295); Sodium 140 mmol/L (136-145); Total Iron Binding Capacity 217 mcg/dl; Total Protein 5.7 g/dL (6.6-8.7); Unsaturated Iron Binding 164 ug/dL (112-347)
[2024-12-20 13:56] LABS: Potassium 2.5 mmol/L (3.5-5.1)
[2024-12-20 17:27] VITALS: BP 146/90; PULSE 76; RESP 17; O2SAT 96
[2024-12-21 08:50] VITALS: BP 105/70; PULSE 76; RESP 16; TEMP 36.4; O2SAT 96
[2024-12-21 11:09] VITALS: BP 125/61; PULSE 75; RESP 16; TEMP 36.8; O2SAT 95
[2024-12-27 14:06] LABS: Hematocrit 29.5 % (36-47); Hemoglobin 9.30 g/dL (11.27-16.99); Mean Corpuscular HGB Conc 31.5 g/dL (30-55); Mean Corpuscular Hemoglobin 27.6 pg (27-33); Mean Corpuscular Volume 87.5 fl (85-98); Nucleated Red Blood Cells % 0 %; Platelet Count 263 10^3/cmm (157-399); Red Blood Count 3.37 10^6/uL (3.85-5.65); White Blood Count 5.23 10^3/uL (3.29-11.43)
[2024-12-27 14:27] LABS: Alanine Aminotransferase 14 U/L (0-33); Albumin Level 3.6 g/dL (3.5-5.2); Alkaline Phosphatase 70 U/L (35-105); Anion Gap 11.7 (5-19); Aspartate Amino Transferase 16 U/L (0-32); Blood Urea Nitrogen 7 mg/dL (8-23); Calcium 8.6 mg/dL (8.5-10.5); Carbon Dioxide 25 mmol/L (22-29); Chloride 103 mmol/L (98-107); Creatinine Clr Calc Pharmacy 59.0873; Ferritin 121 ng/mL (15-150); Globulin 1.7 g/dL (1.3-4.6); Glucose 106 mg/dL (65-115); Iron 48 ug/dL (37-145); Osmolality Calculated 280 mOsm/kg (285-295); Potassium 3.7 mmol/L (3.5-5.1); Sodium 136 mmol/L (136-145); Total Iron Binding Capacity 220 mcg/dl; Total Protein 5.3 g/dL (6.6-8.7); Unsaturated Iron Binding 172 ug/dL (112-347)
== END 2024-12-30 23:59 | disposition home or self-care (01) ==
PROVIDERS: PCP Family Medicine; Visit Provider Nurse Practitioner Family
DX: D50.9 Iron deficiency anemia, unspecified; E87.6 Hypokalemia; Z53.9 Procedure and treatment not carried out, unspecified reason
CPT/HCPCS: 36591; 80048; 80053; 82728; 83540; 83550; 85025; 96365; 96366; 99214; J3480; J7040

== ENCOUNTER → 2025-01-03 13:39 | Outpatient (BNVA) | payer MEDICAID, SELFPAY | PROVIDERS: PCP Family Medicine; Visit Provider Student in an Organized Health Care Education/Training Program | DX: Z09 Encounter for follow-up examination after completed treatment for conditions other than malignant neoplasm (principal) | CPT/HCPCS: 99213 ==

== ENCOUNTER 2025-01-31 13:12 | Oncology outpatient (recurring) (ONCR) | payer MEDICAID, SELFPAY ==
[2025-01-31 13:25] LABS: Hematocrit 35.2 % (36-47); Hemoglobin 10.90 g/dL (11.27-16.99); Mean Corpuscular HGB Conc 31.0 g/dL (30-55); Mean Corpuscular Hemoglobin 26.9 pg (27-33); Mean Corpuscular Volume 86.9 fl (85-98); Nucleated Red Blood Cells % 0 %; Platelet Count 200 10^3/cmm (157-399); Red Blood Count 4.05 10^6/uL (3.85-5.65); White Blood Count 4.75 10^3/uL (3.29-11.43)
[2025-01-31 13:46] LABS: Alanine Aminotransferase 8 U/L (0-33); Albumin Level 4.0 g/dL (3.5-5.2); Alkaline Phosphatase 73 U/L (35-105); Anion Gap 13.6 (5-19); Aspartate Amino Transferase 20 U/L (0-32); Blood Urea Nitrogen 11 mg/dL (8-23); Calcium 8.8 mg/dL (8.5-10.5); Carbon Dioxide 26 mmol/L (22-29); Chloride 106 mmol/L (98-107); Creatinine Clr Calc Pharmacy 52.0491; Ferritin 57 ng/mL (15-150); Globulin 1.8 g/dL (1.3-4.6); Glucose 121 mg/dL (65-115); Iron 80 ug/dL (37-145); Osmolality Calculated 295 mOsm/kg (285-295); Potassium 3.6 mmol/L (3.5-5.1); Sodium 142 mmol/L (136-145); Total Iron Binding Capacity 267 mcg/dl; Total Protein 5.8 g/dL (6.6-8.7); Unsaturated Iron Binding 187 ug/dL (112-347)
== END 2025-03-01 23:59 | disposition home or self-care (01) ==
PROVIDERS: Nurse Practitioner Family; PCP Family Medicine; Visit Provider Nurse Practitioner Family
DX: D50.9 Iron deficiency anemia, unspecified (principal); Z87.891 Personal history of nicotine dependence; Z79.899 Other long term (current) drug therapy; Z95.828 Presence of other vascular implants and grafts
CPT/HCPCS: 36591; 80053; 82728; 83010; 83540; 83550; 85025; 85045; 99213

== ENCOUNTER 2025-04-17 08:36 | Oncology outpatient (recurring) (ONCR) | payer MEDICAID, SELFPAY ==
[2025-04-03 12:00] LABS: Hematocrit 31.6 % (36-47); Hemoglobin 10.20 g/dL (11.27-16.99); Mean Corpuscular HGB Conc 32.3 g/dL (30-55); Mean Corpuscular Hemoglobin 27.2 pg (27-33); Mean Corpuscular Volume 84.3 fl (85-98); Nucleated Red Blood Cells % 0 %; Platelet Count 198 10^3/cmm (157-399); Red Blood Count 3.75 10^6/uL (3.85-5.65); White Blood Count 3.91 10^3/uL (3.29-11.43)
[2025-04-03 12:32] LABS: Alanine Aminotransferase 9 U/L (0-33); Albumin Level 4.0 g/dL (3.5-5.2); Alkaline Phosphatase 80 U/L (35-105); Anion Gap 14.2 (5-19); Aspartate Amino Transferase 19 U/L (0-32); Blood Urea Nitrogen 11 mg/dL (8-23); Calcium 8.4 mg/dL (8.5-10.5); Carbon Dioxide 24 mmol/L (22-29); Chloride 107 mmol/L (98-107); Ferritin 65 ng/mL (15-150); Globulin 1.7 g/dL (1.3-4.6); Glucose 114 mg/dL (65-115); Iron 49 ug/dL (37-145); Magnesium 2.0 mg/dL (1.7-2.3); Osmolality Calculated 294 mOsm/kg (285-295); Potassium 3.2 mmol/L (3.5-5.1); Sodium 142 mmol/L (136-145); Total Iron Binding Capacity 279 mcg/dl; Total Protein 5.7 g/dL (6.6-8.7); Unsaturated Iron Binding 230 ug/dL (112-347)
[2025-04-17] MEDS: diphenhydrAMINE 50 mg/mL SDV 1mL 25 MG IVP (09:23)
[2025-04-17 14:33] VITALS: BP 106/73; PULSE 80; RESP 16; TEMP 37.2; O2SAT 97
== END 2025-05-01 23:59 | disposition home or self-care (01) ==
PROVIDERS: Nurse Practitioner; PCP Family Medicine; Visit Provider Nurse Practitioner Family
DX: D50.8 Other iron deficiency anemias (principal); Z79.899 Other long term (current) drug therapy
CPT/HCPCS: 36591; 80053; 82728; 83540; 83550; 83735; 85025; 96365; 96366; 96375; J1200; J1750; J7030; J7040; J9999